=== PATIENT | male | born 1990 | race Caucasian/White ===

== ENCOUNTER 2016-09-18 13:34 | Inpatient (IN) | payer OTHER ==
[2016-09-18] MEDS ORDERED: INSULIN REGULAR HUMAN 100 UNITS/ML *VIAL IVPUSH ONE (13:47)
[2016-09-18] MEDS ORDERED: SODIUM CHLORIDE IV SCH ×6 (13:48→17:35)
[2016-09-18] MEDS ORDERED: NALOXONE HCL 0.4 MG/ML VIAL IVPUSH ONE (13:50)
--- NOTE | 2016-09-18 13:55 | PDOC ---
History of Present Illness <Fredrick Light - Last Filed: 09/18/16 15:38> - General History Source: Patient, Family Exam Limitations: Other - History of Present Illness Initial Comments: 09/18/16 14:02 The patient is a 25 year old male, with a significant past medical history of asthma, who presents to the emergency department accompanied by family members, altered mental status since earlier this morning. As per uncle, the patient recently returned from [place] yesterday morning, and stated he was not feeling well, but could not localize his symptoms. The uncle reports receiving a call at approximately 06:00 from the patients brother, requesting he go check up on the patient when he went to work. When the uncle arrived the patient was found in his bedroom unresponsive. The uncle reports the patient has a history of cocaine use. After arriving in the ED the patient regained consciousness, and admits to cocaine use, but does not specify at what time. The uncle reports the patient has a history of a liver condition, but does provide any specifics. The patient denies any ETOH or other recreational drug use. The patient denies inhaling any acetone. The patients history is limited due to current clinical condition. Allergies: None reported. Past Surgical History: None reported. Social History: Cocaine use. Non-smoker. Denies alcohol or other recreational drug use. <Amber Alexis - Last Filed: 09/18/16 18:43> - General Stated Complaint: UNRESPONSIVE Time Seen by Provider: 09/18/16 13:41 Past History <Fredrick Light - Last Filed: 09/18/16 15:38> <Amber Alexis - Last Filed: 09/18/16 18:43> - Past Medical History Allergies/Adverse Reactions: Allergies Allergy/AdvReac Type Severity Reaction Status Date / Time No Known Allergies Allergy Verified 09/18/16 14:17 Home Medications: Ambulatory Orders NK [No Known Home Medication] 09/18/16 Review of Systems - Review of Systems Able to Perform ROS?: Yes Comments:: 09/18/16 14:03 GENERAL/CONSTITUTIONAL: No fever or chills. No weakness. HEAD, EYES, EARS, NOSE AND THROAT: No change in vision. No ear pain or discharge. No sore throat. CARDIOVASCULAR: No chest pain or shortness of breath. RESPIRATORY: No cough, wheezing, or hemoptysis. GASTROINTESTINAL: No nausea, vomiting, diarrhea or constipation. GENITOURINARY: No dysuria, frequency, or change in urination. MUSCULOSKELETAL: No joint or muscle swelling or pain. No neck or back pain. SKIN: No rash NEUROLOGIC: Yes: +Altered mental status, +Unresponsive. No headache, vertigo, or change in strength/sensation. ENDOCRINE: No increased thirst. No abnormal weight change. HEMATOLOGIC/LYMPHATIC: No anemia, easy bleeding, or history of blood clots. ALLERGIC/IMMUNOLOGIC: No hives or skin allergy. <Amber Alexis - Last Filed: 09/18/16 18:43> *Physical Exam - Physical Exam Comments: 09/18/16 14:03 GENERAL: Difficult to arouse even with painful stimuli HEAD: No signs of trauma EYES: Pupils small but reactive, EOMI, sclera anicteric, conjunctiva clear ENT: Auricles normal inspection, hearing grossly normal, nares patent, oropharynx clear without exudates. Moist mucosa NECK: Normal ROM, supple, no lymphadenopathy, JVD, or masses LUNGS: Respiration is kuz-mal. No wheezes, and no crackles HEART: Regular rate and rhythm, normal S1 and S2, no murmurs, rubs or gallops ABDOMEN: Tender and slightly firm. Normoactive bowel sounds. No guarding, no rebound. No masses EXTREMITIES: Normal range of motion, no edema. No clubbing or cyanosis. No cords, erythema, or tenderness NEUROLOGICAL: Cranial nerves II through XII grossly intact. Normal speech, normal gait SKIN: Mottled and cool to the touch. Dry, normal turgor, no rashes or lesions noted. <Amber Alexis - Last Filed: 09/18/16 18:43> Heart Score/ECG Review - ECG Impressions Comment:: 09/18/16 14:08 Vent. Rate: 94 bpm IMPRESSION: Normal sinus rhythm. Prolonged QT. <Amber Alexis - Last Filed: 09/18/16 18:43> ED Treatment Course - LABORATORY CBC & Chemistry Diagram: 09/18/16 14:00 09/18/16 14:00 - RADIOLOGY Radiology Studies Ordered: Category Date Time Status CHEST X-RAY PORTABLE* [RAD] Stat Radiology 09/18/16 13:42 Ordered <Fredrick Light - Last Filed: 09/18/16 15:38> - LABORATORY CBC & Chemistry Diagram: 09/18/16 14:00 09/18/16 14:00 - RADIOLOGY Radiograph Interpretation: 09/18/16 17:19 EXAM: CXR INTERPRETED BY: Dr. Nassar REVIEWED BY: Dr. Light IMPRESSION: No evidence of active pulmonary disease EXAM: CXR INTERPRETED BY: Dr. Nassar REVIEWED BY: Dr. Light IMPRESSION: Post intubation, the tip above bifurcation of the trachea at the level of T3. No pneumothorax is seen. The lungs are well aerated without pulmonary infiltrates, or atelectasis. <Amber Alexis - Last Filed: 09/18/16 18:43> Medical Decision Making - Critical Care Time Total Critical Care Time (minutes): 45 Critical Care Statement: The care of this patient involved high complexity decision making to prevent further life threatening deterioration of the patient 's condition and/or to evalute & treat vital organ system(s) failure or risk of failure. - Medical Decision Making 09/18/16 14:04 The patient is initially difficult to arouse even with painful stimuli. After 2 mg of Narcan the patient is more arousable, but still breathing rapidly. Spoke to Dr. Moran in the ICU. Agreed to admit for DKA and septic shock. Patient will be intubated for hemodynamic and mental status management. Intubation: 1. Bicarbonate at 15:21. 2. Etomidate 15:22. 3. 120 Succinylcholine at 15:24. 4. 50 Rocuronium [place] at 15:27. 5. Propofol drip at 5. <Amber Alexis - Last Filed: 09/18/16 18:43> *DC/Admit/Observation/Transfer - Discharge Dispostion Admit: Yes - Attestations Physician Attestion: 09/18/16 13:52 I, Dr. Fredrick Light, attest that this document has been prepared under my direction and personally reviewed by me in its entirety. I further attest, that it accurately reflects all work, treatment, procedures and medical decision -making performed by me. <Fredrick Light - Last Filed: 09/18/16 15:38> - Attestations Scribe Attestion: 09/18/16 14:04 Documentation prepared by Amber Alexis, acting as rn medical surgical for Fredrick Light DO. <Amber Alexis - Last Filed: 09/18/16 18:43> Diagnosis at time of Disposition: Lactic acidosis, Acute renal insufficiency DKA (diabetic ketoacidosis) Qualifiers: Diabetes mellitus type: type 1 Diabetes mellitus complication detail: with coma Qualified Code(s): E10.11 - Type 1 diabetes mellitus with ketoacidosis with coma Altered mental status Qualifiers: Altered mental status type: stupor Qualified Code(s): R40.1 - Stupor - Discharge Dispostion Condition at time of disposition: Critical
[2016-09-18 14:20] LABS: BASOPHIL 0.3 % (0-2.0); EOSINOPHIL 0.2 % (0-4.5); MCH 30.4 pg (25.7-33.7); MCHC 30.1 g/dl (32.0-35.9); MEAN CELL VOLUME 100.9 fl (80-96); MEAN PLT VOLUME 11.5 fl (7.5-11.1); NEUTROPHILS 83.3 % (42.8-82.8); PLATELET COUNT 294 K/MM3 (134-434); RDW 15.5 % (11.9-15.9); WHITE BLOOD COUNT 17.9 K/mm3 (4.0-10.0)
[2016-09-18 14:33] LABS: INR 0.96 (0.82-1.09); PROTHROMBIN TIME (PATIENT) 10.6 SEC (9.98-11.88)
[2016-09-18 14:36] LABS: ACTIVATED PTT 31.7 SECONDS (26.9-34.4)
[2016-09-18 14:37] LABS: ALBUMIN 3.5 g/dl (3.4-5.0); CALCIUM 8.1 mg/dL (8.5-10.1); COCKROFT - GAULT 63.54; CREATININE 2.3 mg/dL (0.7-1.3); SGOT/AST 60 U/L (15-37); SGPT/ALT 115 U/L (12-78)
[2016-09-18 14:38] LABS: ANION GAP 30 (8-16); CO2 3 mmol/L (21-32)
[2016-09-18 14:42] LABS: URINE APPEARANCE CLEAR; URINE BILIRUBIN NEGATIVE (NEGATIVE); URINE BLOOD 1+ (NEGATIVE); URINE COLOR STRAW; URINE GLUCOSE (UA) 3+ (NEGATIVE); URINE KETONE 2+ (NEGATIVE); URINE LEUK ESTERASE NEGATIVE (NEGATIVE); URINE NITRITE NEGATIVE (NEGATIVE); URINE PROTEIN 2+ (NEGATIVE); URINE UROBILINOGEN NEGATIVE E.U./dl (0.2-1.0)
[2016-09-18 14:42] LABS: ALK PHOS 172 U/L (45-117); BILIRUBIN,TOTAL 0.5 mg/dL (0.2-1.0); TROPONIN I < 0.02 ng/ml (0.00-0.05)
[2016-09-18 14:46] LABS: GRANULAR CASTS 11 /lpf; URINE MUCUS RARE; URINE RBC <1 /hpf (0-3); URINE WBC 1 /hpf (3-5)
[2016-09-18 14:46] LABS: GLUCOSE,RANDOM 947 mg/dL (74-106)
[2016-09-18 14:49] LABS: ARTERIAL BLD GAS O2 SATURATION 97.2 % (90-98.9); ARTERIAL BLOOD GAS HCO3 1.4 meq/L (22-26)
[2016-09-18 14:51] LABS: ALLENS TEST POSITIVE; ART PUNCT SITE LEFT RADIAL; ARTERIAL BLOOD GAS BASE EXCESS -33.9 meq/l (-2-2); ARTERIAL BLOOD GAS pH 6.75 (7.35-7.45); LPM/O2% 21%; PT. ON O2? NO; TYPE OF O2 ROOM AIR
[2016-09-18 14:52] LABS: METHEMOGLOBIN 1.2 % (0.4-1.5)
[2016-09-18] MEDS ORDERED: SODIUM CHLORIDE IV STA (14:52)
[2016-09-18] MEDS ORDERED: ETOMIDATE 20 MG/10 ML AMPUL IVPUSH ONE (14:55)
[2016-09-18] MEDS ORDERED: SUCCINYLCHOLINE CHLORIDE 200 MG/10 ML VIAL IVPUSH ONE (14:55)
[2016-09-18] MEDS ORDERED: ROCURONIUM BROMIDE 50 MG/5 ML VIAL IVPUSH ONE (14:55)
[2016-09-18] MEDS ORDERED: PROPOFOL 100 ML ONE (15:01)
[2016-09-18] MEDS ORDERED: RAPID SEQUENCE INTUBATION KIT NR ONE (15:01)
[2016-09-18] MEDS ORDERED: SODIUM BICARBONATE 8.4% 50 MEQ/50 ML DISP.SYRIN IVPUSH ONE ×4 (15:11→20:30)
[2016-09-18] MEDS ORDERED: SODIUM BICARBONATE 8.4% - 50 ML ONE ×2 (15:13→17:20)
[2016-09-18] MEDS: PROPOFOL 100 ML IVPB SCH (15:35)
[2016-09-18] MEDS ORDERED: INSULIN REGULAR HUMAN 100 UNITS/ML *VIAL ONE ×2 (15:47→22:29)
[2016-09-18] MEDS ORDERED: SODIUM CHLORIDE 1,000 ML IV SCH (16:00)
[2016-09-18] MEDS ORDERED: SODIUM CHLORIDE 0.9%/KCL 1,000 ML IV SCH (16:30)
--- NOTE | 2016-09-18 16:44 | PN ---
Teaching Attending Note Name of Resident: Danny Shine ATTENDING PHYSICIAN STATEMENT I saw and evaluated the patient. I reviewed the resident's note and discussed the case with the resident. I agree with the resident's findings and plan as documented. Patient is a 25yo male ,presented unresponsive to ED. was intubated in ED. Hx taken from the family very limited. Patient was in [place] for 2 weeks and became sick in [place] and as per family he was hospitalized in [place] . Vital Signs Temperature 93.3 F L 09/18/16 14:28 Pulse Rate 88 09/18/16 15:38 Respiratory Rate 14 09/18/16 15:38 Blood Pressure 109/43 09/18/16 15:28 O2 Sat by Pulse Oximetry (%) 100 09/18/16 15:38 GENERAL: The patient intubated and sedated at this time. HEAD: NC, AT. EYES: PERRL, opens eyes ,sclera anicteric, conjunctiva clear. ENT: Ears normal, positive for NG tube . NECK: Trachea midline, full range of motion, supple. LUNGS: Intubated , sedated . HEART: Regular rate and rhythm, S1, S2 positive. ABDOMEN: Soft, nontender, nondistended, normoactive bowel sounds, no guarding, no rebound, no masses appreciated . EXTREMITIES: 2+ pulses, warm, well-perfused, no edema. NEUROLOGICAL: Cranial nerves II through XII grossly intact. PSYCH: Normal mood, normal affect. SKIN: Warm, dry, normal turgor. : pubic rash is noted CBCD WBC 17.9 K/mm3 (4.0-10.0) H 09/18/16 14:00 RBC 5.08 M/mm3 (4.00-5.60) 09/18/16 14:00 Hgb 15.4 GM/dL (11.7-16.9) 09/18/16 14:00 Hct 51.2 % (35.4-49) H 09/18/16 14:00 MCV 100.9 fl (80-96) H 09/18/16 14:00 MCHC 30.1 g/dl (32.0-35.9) L 09/18/16 14:00 RDW 15.5 % (11.9-15.9) 09/18/16 14:00 Plt Count 294 K/MM3 (134-434) 09/18/16 14:00 MPV 11.5 fl (7.5-11.1) H 09/18/16 14:00 CMP Sodium 134 mmol/L (136-145) L 09/18/16 14:00 Potassium 4.3 mmol/L (3.5-5.1) 09/18/16 14:00 Chloride 101 mmol/L (98-107) 09/18/16 14:00 Carbon Dioxide 3 mmol/L (21-32) L 09/18/16 14:00 Anion Gap 30 (8-16) H 09/18/16 14:00 BUN 22 mg/dL (7-18) H 09/18/16 14:00 Creatinine 2.3 mg/dL (0.7-1.3) H 09/18/16 14:00 Creat Clearance w eGFR 35.11 (>60) 09/18/16 14:00 Random Glucose 947 mg/dL (74-106) H* 09/18/16 14:00 Calcium 8.1 mg/dL (8.5-10.1) L 09/18/16 14:00 Total Bilirubin 0.5 mg/dL (0.2-1.0) 09/18/16 14:00 AST 60 U/L (15-37) H 09/18/16 14:00 ALT 115 U/L (12-78) H 09/18/16 14:00 Alkaline Phosphatase 172 U/L (45-117) H 09/18/16 14:00 Total Protein 7.0 g/dl (6.4-8.2) 09/18/16 14:00 Albumin 3.5 g/dl (3.4-5.0) 09/18/16 14:00 CARDIAC ENZYMES Creatine Kinase 59 IU/L (39-308) 09/18/16 14:00 Troponin I < 0.02 ng/ml (0.00-0.05) 09/18/16 14:00 Current Medications Generic Name Dose Route Start Last Admin Trade Name Freq PRN Reason Stop Dose Admin Chlorhexidine Gluconate 1 applic 09/18/16 22:00 Hibiclens For Decolonization - TP HS SILVER Enoxaparin Sodium 40 mg 09/19/16 10:00 Lovenox - SQ DAILY SILVER Insulin Human Regular 100 100 mls @ 9.07 mls/hr 09/18/16 15:30 units/ Sodium Chloride IVPB TITR SILVER Protocol Sodium Chloride 4,000 mls @ 1,000 mls/hr 09/18/16 14:52 09/18/16 15:38 Normal Saline - IV 09/18/16 18:51 1,000 mls/hr ASDIR STA Administration Propofol 100 mls @ 2.722 mls/hr 09/18/16 15:00 09/18/16 15:35 Diprivan - IVPB 2.722 mls/hr TITR SILVER Administration Protocol 5 MCG/KG/MIN Potassium Chloride/Sodium Chloride 1,000 mls @ 150 mls/hr 09/18/16 16:30 Ns+20 Meq Kcl - IV ASDIR SILVER Piperacillin Sod/Tazobactam Sod 50 mls @ 100 mls/hr 09/18/16 17:00 Zosyn 3.375gm Ivpb (Pre-Docked) IVPB 09/18/16 17:29 ONCE ONE Protocol Vancomycin HCl 250 mls @ 250 mls/hr 09/18/16 17:00 Vancomycin (Pre-Docked) IVPB 09/18/16 17:59 ONCE ONE Protocol Potassium Acetate 40 meq/ 1,020 mls @ 250 mls/hr 09/18/16 16:45 Sodium Chloride IV 09/19/16 20:50 ASDIR SILVER Mupirocin 1 applic 09/18/16 22:00 Bactroban Ointment (For Decolonization) - NS 09/23/16 21:59 BID SILVER ASSESSMENT AND PLAN: Patient is a 25M with PMHx of Asthma, cocaine use, etoh abuse , liver disease as per uncle, presents to the ED with family since he was found unresponsive this morning. As per family patient just returned from [place] 2 days ago as he was there for 2 weeks. As per family, patient was sick in [place] where he was hospitalized but unsure what was wrong with him. When he got back patient complained of vague abdominal and chest pain and his uncle was asked by other family members to check in on the patient as his brother was going to work and was found down and unresponsive and brought to the emergency room by EMS # Acute respiratory Failure intubated sedated going to ICU repeat abg in 3 hrs. ICU attending # Acute DKA with metabolic acidosis; IVF 0.9NS with potassium acetate 40meq at 25occ/hr, CMP every 4 hrs, alt.with accu check every 1 hr for the 1st 12 hrs. once Blood sugar drops to 250, change IVF to d51/2NS at 200cc/hr, once potassium drops to below 4.0 add potassium to IVF, cmp q2 hrs, insulin drip at 10u/hr, Decrease rate to 7 units/hr once blood sugar drops to < 500 , Decrease Insulin drip rate to 3 units/hr once blood sugar drops to <250 and Change IVF to D5NS at 150 cc/hr ,NaHCO3 drip until PH rises to 7.0adjust as per , adjust the dose according blood sugar as well , also mag, phos every 2 hrs , on consult # Acute hypothermia, leukocytosis r/o sepsis, blood culture, ua, urine culture is ordered , ID consult as per ID one dose of Vancomycin 1500mg, then Rocephin 2gm IV daily. ID on the case # Acute renal failure IVF repeat cmp every 2 hrs for 12 hrs then every 4 hrs ; on the case # Hx of EToh and cocaine r/o rhabdomyolisis CPK level stat DVT Px: Heparin Admit to ICU' CC time of 60 minutes.
[2016-09-18] MEDS ORDERED: POTASSIUM ACETATE IV SCH ×5 (16:45→17:35)
--- NOTE | 2016-09-18 16:51 | HP ---
Addendum entered and electronically signed by Danny Shine RES 09/18/16 17:34: family just informed me he was taking some medication from [place] for his liver and he also drinks 5-6 large cans of beer everyday Original Note: CHIEF COMPLAINT: Patient found down in DKA PCP:None HISTORY OF PRESENT ILLNESS: 25M PMHx of Asthma, some kind of liver disease per uncle, presents to the ED with family as he was found unresponsive this morning. As per family patient just returned from [place] 2 days ago as he was there for 2 weeks. When he got back he complained of vague abdominal and chest pain and his uncle was asked by other family members to check in on the patient as his brother was going to work. When his uncle when to c heck on him he was found down and unresponsive and brought to the emergency room by EMS. Patient was unresponsive in the ED and and given narcan and woke up briefly and admitted to cocaine use. The uncle reports the patient has a history of cocaine use some kind of liver consition and asthma. Patient has never been diagnosed with diabetes before per the family. The patient denied any ETOH or other recreational drug use to the ED physician. The patient denies inhaling any acetone to the ED physician. In the ED in metabolic acidosis and respiratory alkalosis. SEAN. He was intubated. he has leukocytosis and hypothermia. Allergies: None reported. Past Surgical History: None reported. Social History: Cocaine use. Non-smoker. Denies alcohol or other recreational drug use. ER course was notable for: (1)IVF Labs (2)Insulin gtt Bicarb intubation (3)CXR Recent Travel: PAST MEDICAL HISTORY: PAST SURGICAL HISTORY: Social History: Smoking:Denies Alcohol:Denies Drugs: Cocaine use Family History: Allergies No Known Allergies Allergy (Verified 09/18/16 14:17) HOME MEDICATIONS: REVIEW OF SYSTEMS Could not do ROS as patient was unresponsive and is now intubated and sedated. PHYSICAL EXAMINATION Vital Signs - 24 hr 09/18/16 09/18/16 09/18/16 13:34 13:52 14:28 Temperature 93.3 F L 93.3 F L Pulse Rate 91 H Pulse Rate [ 94 H Apical] Respiratory 18 36 H Rate Blood Pressure 115/54 Blood Pressure 124/52 [Left Arm] O2 Sat by Pulse 100 98 Oximetry (%) 04/09/18/16 09/18/16 14:37 14:47 15:20 Temperature Pulse Rate Pulse Rate [ 92 H 90 Apical] Respiratory 30 H 24 Rate Blood Pressure Blood Pressure 130/62 119/57 [Left Arm] O2 Sat by Pulse 98 100 88 L Oximetry (%) 09/18/16 09/18/16 15:28 15:38 Temperature Pulse Rate 88 Pulse Rate [ 87 Apical] Respiratory 18 14 Rate Blood Pressure Blood Pressure 109/43 [Left Arm] O2 Sat by Pulse 100 100 Oximetry (%) GENERAL: Intubated sedated. HEAD: Normal with no signs of trauma. EYES: Pupils equal, round and reactive to light, Sclera anicteric, Conjunctiva clear EARS, NOSE, THROAT:Dry mucous membranes. NECK: No JVD . LUNGS: Breath sounds equal, clear to auscultation bilaterally. Bronchial breath sounds. No wheezes, and no crackles. Intubated. HEART: tachycardic ABDOMEN: Soft, nontender, not distended, normoactive bowel sounds UPPER EXTREMITIES: warm, well-perfused. No peripheral edema. LOWER EXTREMITIES: warm, well-perfused. No peripheral edema. : arnold in place with bright red blood. Traumatic arnold insertion per ED Laboratory Results - last 24 hr 09/18/16 09/18/16 09/18/16 14:00 14:00 14:00 WBC 17.9 H RBC 5.08 Hgb 15.4 Hct 51.2 H MCV 100.9 H MCHC 30.1 L RDW 15.5 Plt Count 294 MPV 11.5 H Neutrophils % 83.3 H Lymphocytes % 7.5 L Monocytes % 8.7 Eosinophils % 0.2 Basophils % 0.3 INR 0.96 PTT (Actin FS) 31.7 Puncture Site ABG pH ABG pCO2 at Pt Temp ABG pO2 at Pt Temp ABG HCO3 ABG O2 Sat (Measured) ABG O2 Content ABG Base Excess Dennis Test Carboxyhemoglobin Methemoglobin O2 Delivery Device Oxygen Flow Rate PEEP Sodium 134 L Potassium 4.3 Chloride 101 Carbon Dioxide 3 L Anion Gap 30 H BUN 22 H Creatinine 2.3 H Creat Clearance w eGFR 35.11 Random Glucose 947 H* Lactic Acid Calcium 8.1 L Total Bilirubin 0.5 AST 60 H ALT 115 H Alkaline Phosphatase 172 H Creatine Kinase 59 Troponin I < 0.02 Total Protein 7.0 Albumin 3.5 Urine Color Urine Appearance Urine pH Ur Specific [place] Urine Protein Urine Glucose (UA) Urine Ketones Urine Blood Urine Nitrite Urine Bilirubin Urine Urobilinogen Ur Leukocyte Esterase Urine RBC Urine WBC Granular Casts Urine Mucus Blood Type Antibody Screen 09/18/16 09/18/16 09/18/16 14:00 14:00 14:20 WBC RBC Hgb Hct MCV MCHC RDW Plt Count MPV Neutrophils % Lymphocytes % Monocytes % Eosinophils % Basophils % INR PTT (Actin FS) Puncture Site ABG pH ABG pCO2 at Pt Temp ABG pO2 at Pt Temp ABG HCO3 ABG O2 Sat (Measured) ABG O2 Content ABG Base Excess Dennis Test Carboxyhemoglobin Methemoglobin O2 Delivery Device Oxygen Flow Rate PEEP Sodium Potassium Chloride Carbon Dioxide Anion Gap BUN Creatinine Creat Clearance w eGFR Random Glucose Lactic Acid 5.191 H* Calcium Total Bilirubin AST ALT Alkaline Phosphatase Creatine Kinase Troponin I Total Protein Albumin Urine Color Straw Urine Appearance Clear Urine pH 5.0 Ur Specific [place] 1.023 Urine Protein 2+ H Urine Glucose (UA) 3+ H Urine Ketones 2+ H Urine Blood 1+ H Urine Nitrite Negative Urine Bilirubin Negative Urine Urobilinogen Negative Ur Leukocyte Esterase Negative Urine RBC <1 Urine WBC 1 Granular Casts 11 Urine Mucus Rare Blood Type O POSITIVE Antibody Screen Negative 09/18/16 09/18/16 14:38 14:38 WBC RBC Hgb Hct MCV MCHC RDW Plt Count MPV Neutrophils % Lymphocytes % Monocytes % Eosinophils % Basophils % INR PTT (Actin FS) Puncture Site Left radial ABG pH 6.75 L* ABG pCO2 at Pt Temp 10.7 L* ABG pO2 at Pt Temp 154.0 H* ABG HCO3 1.4 L* ABG O2 Sat (Measured) 97.2 ABG O2 Content 16.5 ABG Base Excess -33.9 L* Dennis Test Positive Carboxyhemoglobin 1.1 Methemoglobin 1.2 O2 Delivery Device Room air Oxygen Flow Rate 21% PEEP 0.0 Sodium Potassium Chloride Carbon Dioxide Anion Gap BUN Creatinine Creat Clearance w eGFR Random Glucose Lactic Acid Calcium Total Bilirubin AST ALT Alkaline Phosphatase Creatine Kinase Troponin I Total Protein Albumin Urine Color Urine Appearance Urine pH Ur Specific [place] Urine Protein Urine Glucose (UA) Urine Ketones Urine Blood Urine Nitrite Urine Bilirubin Urine Urobilinogen Ur Leukocyte Esterase Urine RBC Urine WBC Granular Casts Urine Mucus Blood Type Antibody Screen ASSESSMENT/PLAN: 25M found down with no PMH of DM presents to the ED unresponsive in DKA and severe sepsis. Diabetic ketoacidosis: patient has likely been a diabetic for a long time and has been undiagnosed and this is his initial presentation of DKA from untreated type 1 DM patient intubated admit to ICU given 6 liters IVF so far give 2 more liters bolus give NS @ 200ml/hr with 40 MeQ of potassium and 1/2 NS with 150 MEq of Bicarb @ 50ml/hr Endocrinology consult-spoke to Dr. Weir who will see the patient in consultation Insulin gtt BMP q4h Anion gap 30 once Anion gap closes or patient becomes hypoglycemic change fluids to dextrose containing fluids with potassium and give levemir replete potassium PRN will need outpatient follow up with ophthalmology and podiatry send osmolality send serum acetone HbA1C Severe Sepsis: tachycardic hypothermic leukocytosis with acute kidney injury and lactic acidosis unlikely patient has a source of infection leukocytosis is likely reactive to DKA Send BCx UCx ID consult STAT Vanco/Zosyn trend lactic acid Acute respiratory failure: from DKA intubated patient was tachypneic and CO2 was 10.7 ventilatory support ICU admission trend ABG lactic acidosis: from dehydration and volume depletion from third spacing of fluids trend lactic acid aggressive IVF for hydration Metabolic acidosis: from diabetic ketoacidosis and lactic acidosis given bicarb in ED will need Bicarb gtt Acute renal failure/Acute kidney injury: from volume depletion and third spacing of fluids aggressive IVF for hydration Trend Cr avoid nephrotoxic drugs Transaminitis/questionable history of Liver disease: transaminitis likely from shock liver from hypoperfusion Aggressive IVF hydration and volume repletion will need more history from the patient when he is stable alert and awake send DIC work up Hematuria: from traumatic arnold insertion irrigate arnold PRN monitor CBC send DIC work up Hyponatremia: this is pseudohyponatremia from hyperglycemia corrected sodium is WNL Asthma: intubated at this time will address this if it is active once stable FEN: Boluses PRN/aggressive hydration and volume repletion. NS with 40meq of potassium and bicarb @ 200ml/hr 1/2 NS with 150Meq of bicarb @ 50ml/hr replete potassium while on insulin gtt keep K+>4.0 NPO PPx: Lovenox/SCDs Protonix No PT consult at this time CCT 60 minutes ICU care Guarded prognosis spoke to ICU team attending Dr. Moran and resident Dr. Conley who have accepted the patient Visit type - Emergency Visit Emergency Visit: Yes Care time: The patient presented to the Emergency Department on the above date and was hospitalized for further evaluation of their emergent condition. - New Patient This patient is new to me today: Yes Date on this admission: 09/18/16 - Critical Care Critical Care patient: Yes Total Critical Care Time (in minutes): 60 Critical Care Statement: The care of this patient involved high complexity decision making to prevent further life threatening deterioration of the patient 's condition and/or to evalute & treat vital organ system(s) failure or risk of failure.
[2016-09-18] MEDS ORDERED: VANCOMYCIN 1 GRAM (PRE-DOCKED) 250 ML IVPB ONE ×2 (17:00→17:20)
[2016-09-18] MEDS ORDERED: PIPERACILLIN/TAZOB 3.375 GM 50 ML IVPB ONE ×2 (17:00→17:20)
[2016-09-18] MEDS ORDERED: SODIUM CHLORIDE 0.45% 1,000 ML with SODIUM BICARBONATE 8.4% - 150 MEQ IV SCH (17:02)
[2016-09-18] MEDS ORDERED: CEFTRIAXONE 1 GM in DEXTROSE 5%-WATER - 50 ML IVPB ONE (17:10)
[2016-09-18 17:14] LABS: ARTERIAL BLD GAS O2 SATURATION 98.5 % (90-98.9)
[2016-09-18 17:17] LABS: ARTERIAL BLOOD GAS pH 6.75 (7.35-7.45)
[2016-09-18 17:18] LABS: ARTERIAL BLOOD GAS BASE EXCESS -32.2 meq/l (-2-2); ARTERIAL BLOOD GAS HCO3 4.2 meq/L (22-26)
[2016-09-18 17:19] LABS: ALLENS TEST POSITIVE; ART PUNCT SITE LEFT RADIAL
[2016-09-18 17:21] LABS: PT. ON O2? YES
[2016-09-18 17:22] LABS: LPM/O2% 50; MECH. VENT. YES; VENT RATE 14; VT/PRESS 500
[2016-09-18] MEDS ORDERED: VANCOMYCIN 1,500 MG in DEXTROSE 5%-WATER - 500 ML IVPB ONE (17:22)
[2016-09-18 17:24] LABS: METHEMOGLOBIN 1.3 % (0.4-1.5)
--- NOTE | 2016-09-18 17:32 | PN ---
Progress Note (short form) - Note Progress Note: ID consult dictated 25 year old man just returned Wednesday from 15 day trip to [place]- has not been feeling well, c/o body pains +cocaine use/Etoh use -no IVDU found unresponsive and brought to ED was taking medicine from [place] for "liver "problems found to be in DKA -no prior history of diabetes asked to see for leukocytosis DKA SEAN abnl LFTS leukocytosis- possible sepsis respiratory failure substance use skin lesions suprapubic area hematuria would continue ceftriaxone vancomycin one dose urine tox hep serology rpr hiv testing- when able to consent liver sonogram for abnl lfts r Problem List - Problems (1) DKA (diabetic ketoacidosis) Code(s): E13.10 - OTH DIABETES MELLITUS WITH KETOACIDOSIS WITHOUT COMA Qualifiers: Diabetes mellitus type: type 1 Diabetes mellitus complication detail: with coma Qualified Code(s): E10.11 - Type 1 diabetes mellitus with ketoacidosis with coma (2) Acute renal insufficiency Code(s): N28.9 - DISORDER OF KIDNEY AND URETER, UNSPECIFIED (3) Respiratory failure Code(s): J96.90 - RESPIRATORY FAILURE, UNSP, UNSP W HYPOXIA OR HYPERCAPNIA (4) Leukocytosis Code(s): D72.829 - ELEVATED WHITE BLOOD CELL COUNT, UNSPECIFIED
[2016-09-18] MEDS ORDERED: CEFTRIAXONE 100 ML IVPB ONE (17:37)
[2016-09-18] MEDS: cefTRIAXone 2 GM/100 ML BAG (PRE-DOCKED) IVPB ONE ×2 (17:46→17:52)
[2016-09-18] MEDS: INSULIN REGULAR 100 UNITS in SODIUM CHLORIDE 99 ML IVPB SCH (17:49)
[2016-09-18] MEDS ORDERED: LORAZEPAM CARPU-JECT 2 MG/ML DISP.SYRIN IVPUSH ONE (17:54)
[2016-09-18] MEDS ORDERED: morphine CARPU-JECT 4 MG/1 ML DISP.SYRIN IVPUSH ONE (17:54)
[2016-09-18] MEDS ORDERED: LORAZEPAM CARPU-JECT 2 MG/ML DISP.SYRIN ONE (17:55)
[2016-09-18] MEDS ORDERED: morphine CARPU-JECT 4 MG/1 ML DISP.SYRIN ONE (17:55)
--- NOTE | 2016-09-18 17:58 | CONSULT ---
Consult Consult Specialty:: Endocrinology Referred by:: Dr Salcedo Reason for Consultation:: HYperlglycemia, DKA - History of Present Illness Chief Complaint: AMS History of Present Illness: This is a 25 year old male, with a significant past medical history of asthma, who presents to the emergency department accompanied by family members, altered mental status since earlier this morning. As per uncle, the patient recently returned from [place] yesterday morning, and stated he was not feeling well, but could not localize his symptoms. Patient was found unresponsive in his bedroom by uncle today. The uncle reports the patient has a history of cocaine use. After arriving in the ED the patient regained consciousness, and admitted to cocaine use, but did not specify at what time. Pt has h/o liver problems. Pt intubated and sedated in ED. Found to be acidotic with blood sugar >900. Treated with IV hydration, IV Insulin, KCL, Bicarb. - History Source History Provided By: Family Member, Medical Record Limitations to Obtaining History: Unresponsive - Alcohol/Substance Use Hx Alcohol Use: No - Smoking History Smoking history: Unknown if ever smoked Have you smoked in the past 12 months: No Home Medications - Allergies Allergies/Adverse Reactions: Allergies Allergy/AdvReac Type Severity Reaction Status Date / Time No Known Allergies Allergy Verified 09/18/16 14:17 Review of Systems Unable to obtain ROS, reason: Unresponsive, intubated, Physical Exam Vital Signs: Vital Signs Temperature 93.3 F L 09/18/16 14:28 Pulse Rate 88 09/18/16 15:38 Respiratory Rate 14 09/18/16 15:38 Blood Pressure 109/43 09/18/16 15:28 O2 Sat by Pulse Oximetry (%) 100 09/18/16 15:38 Constitutional: Yes: Other (Intubated, sedated) Eyes: Yes: Conjunctiva Clear HENT: Yes: Atraumatic, Normocephalic Neck: Yes: Supple, Trachea Midline Cardiovascular: Yes: Regular Rate and Rhythm Respiratory: Yes: CTA Bilaterally, Mechanically Ventilated Gastrointestinal: Yes: Soft Extremities: Yes: WNL Edema: No Neurological: Yes: Unresponsive (Intubated and sedated) Assessment/Plan AP: DKA Sepsis Lactic Acidosis SEAN Increase Insulin drip to 10 units/hr Decrease rate to 7 units/hr once blood sugar drops to <500 Decrease Insulin drip rate to 3 units/hr once blood sugar drops to <250 and Change IVF to D5NS at 150 cc/hr NaHCO3 drip until PH rises to 7.0 Electrolyte replacement as necessary IV abx as per ID Transfer to ICU
[2016-09-18 18:31] LABS: URINE MARIJUANA THC NEGATIVE ng/ml (CUTOFF=50)
--- NOTE | 2016-09-18 19:30 | CONSULT ---
Consult Consult Specialty:: Nephrology Reason for Consultation:: SEAN and acidosis - History of Present Illness Chief Complaint: brought in by family with altered mental status History of Present Illness: Pt is a 25 year old male with pmhx of asthma, etoh abuse, and cocaine use who was brought in to the hospital by family members for altered mental status. As per family pt had not been feeling well for the last few days. He was last seen awake and verbal yesterday. His brother is at bedside and assisted with history. Pt drinks about 6 large 40oz bottles of alcohol daily. His friends are at bedside and say that he uses cocaine daily. He was found in his bedroom unresponsive. Pt was intubted in ER. He was found to be in renal failure and was found to be acidotic. I was called to evaluate him. He was also found to have a blood sugar of greater than 900. He has received about 7 liters of fluids already and is on an insulin drip. - History Source History Provided By: Medical Record - Past Medical History Pulmonary: Yes: Asthma - Alcohol/Substance Use Hx Alcohol Use: Yes (6 - 40 oz bottles daily) History of Substance Use: reports: Cocaine - Smoking History Smoking history: Unknown if ever smoked Have you smoked in the past 12 months: No Home Medications - Allergies Allergies/Adverse Reactions: Allergies Allergy/AdvReac Type Severity Reaction Status Date / Time No Known Allergies Allergy Verified 09/18/16 14:17 - Home Medications Home Medications: Ambulatory Orders NK [No Known Home Medication] 09/18/16 Family Disease History - Family Disease History Family History: Unable to Obtain Review of Systems Unable to obtain ROS, reason: pt intubated Physical Exam Vital Signs: Vital Signs Temperature 94.9 F L 09/18/16 19:16 Pulse Rate 88 09/18/16 19:16 Respiratory Rate 16 09/18/16 19:17 Blood Pressure 124/59 09/18/16 19:16 O2 Sat by Pulse Oximetry (%) 100 09/18/16 19:17 Constitutional: Yes: Mild Distress Eyes: Yes: Conjunctiva Clear Cardiovascular: Yes: S1, S2 Respiratory: Yes: Mechanically Ventilated Gastrointestinal: Yes: Soft, Abdomen, Obese Renal/: Yes: Kelly Present, Hematuria Musculoskeletal: Yes: Muscle Weakness Edema: No Neurological: Yes: Lethargy Labs: Laboratory Tests 09/18/16 09/18/16 09/18/16 14:00 14:00 14:20 ABG pH ABG pCO2 at Pt Temp ABG pO2 at Pt Temp ABG HCO3 ABG O2 Sat (Measured) ABG O2 Content ABG Base Excess Sodium 134 L Potassium 4.3 Chloride 101 Carbon Dioxide 3 L Anion Gap 30 H BUN 22 H Creatinine 2.3 H Creat Clearance w eGFR 35.11 Random Glucose 947 H* Lactic Acid 5.191 H* Calcium 8.1 L AST 60 H ALT 115 H Alkaline Phosphatase 172 H Urine Color Straw Urine Appearance Clear Urine pH 5.0 Ur Specific [place] 1.023 Urine Protein 2+ H Urine Glucose (UA) 3+ H Urine Ketones 2+ H Urine Blood 1+ H Cocaine Screen Alcohol, Quantitative 09/18/16 09/18/16 09/18/16 14:28 14:38 17:00 ABG pH 6.75 L* 6.75 L* ABG pCO2 at Pt Temp 10.7 L* 32.1 L D ABG pO2 at Pt Temp 154.0 H* 249.0 H* ABG HCO3 1.4 L* 4.2 L* ABG O2 Sat (Measured) 97.2 98.5 ABG O2 Content 16.5 19.3 ABG Base Excess -33.9 L* -32.2 L* Sodium Potassium Chloride Carbon Dioxide Anion Gap BUN Creatinine Creat Clearance w eGFR Random Glucose Lactic Acid Calcium AST ALT Alkaline Phosphatase Urine Color Urine Appearance Urine pH Ur Specific [place] Urine Protein Urine Glucose (UA) Urine Ketones Urine Blood Cocaine Screen Alcohol, Quantitative < 5.0 09/18/16 18:00 ABG pH ABG pCO2 at Pt Temp ABG pO2 at Pt Temp ABG HCO3 ABG O2 Sat (Measured) ABG O2 Content ABG Base Excess Sodium Potassium Chloride Carbon Dioxide Anion Gap BUN Creatinine Creat Clearance w eGFR Random Glucose Lactic Acid Calcium AST ALT Alkaline Phosphatase Urine Color Urine Appearance Urine pH Ur Specific [place] Urine Protein Urine Glucose (UA) Urine Ketones Urine Blood Cocaine Screen Negative Alcohol, Quantitative Imaging - Results Chest X-ray: Report Reviewed Problem List - Problems (1) Acute renal insufficiency Code(s): N28.9 - DISORDER OF KIDNEY AND URETER, UNSPECIFIED (2) Altered mental status Code(s): R41.82 - ALTERED MENTAL STATUS, UNSPECIFIED Qualifiers: Altered mental status type: stupor Qualified Code(s): R40.1 - Stupor (3) Lactic acidosis Code(s): E87.2 - ACIDOSIS (4) Leukocytosis Code(s): D72.829 - ELEVATED WHITE BLOOD CELL COUNT, UNSPECIFIED (5) Respiratory failure Code(s): J96.90 - RESPIRATORY FAILURE, UNSP, UNSP W HYPOXIA OR HYPERCAPNIA Assessment/Plan Current Medications Generic Name Dose Route Start Last Admin Trade Name Freq PRN Reason Stop Dose Admin Ceftriaxone Sodium 2 gm 09/19/16 10:00 Rocephin 2gm Ivpb (Pre-Docked) IVPB DAILY [facility] Protocol Chlorhexidine Gluconate 1 applic 09/18/16 22:00 Hibiclens For Decolonization - TP HS SILVER Enoxaparin Sodium 40 mg 09/19/16 10:00 Lovenox - SQ DAILY [facility] Insulin Human Regular 100 100 mls @ 7 mls/hr 09/18/16 15:30 09/18/16 17:49 units/ Sodium Chloride IVPB 7 mls/hr TITR SILVER Administration Protocol 7 UNITS/HR Propofol 100 mls @ 2.722 mls/hr 09/18/16 15:00 09/18/16 15:35 Diprivan - IVPB 2.722 mls/hr TITR SILVER Administration Protocol 5 MCG/KG/MIN Potassium Acetate 40 meq/ 1,020 mls @ 250 mls/hr 09/18/16 17:35 09/18/16 19:25 Sodium Chloride IV 09/19/16 01:31 250 mls/hr Q4H SILVER Administration Mupirocin 1 applic 09/18/16 22:00 Bactroban Ointment (For Decolonization) - NS 09/23/16 21:59 BID SILVER Impression 1. SEAN 2. metabolic acidosis 3. gross hematuria 4. DKA 5. sepsis 6. lactic acidosis 7. acute respiratory failure requiring intubation 8. etoh abuse - active 9. cocain use active Plan - agree with hydration, last set of labs was at 1400, repeat labs stat in order to asses fluids - cotn insulin drip - vent support - admit to ICU - send CPK level - will need renal ultrasound - check urine creatinine and sodium - repeat ABG - pulmonary/critical care evaluation - discussed case with family - discussed with ER team and medical attending - will need to monitor blood sugar - will need to monitor bmp - will follow closely - monitor urine output Dr Espinoza
[2016-09-18 19:31] LABS: COCKROFT - GAULT 85.97; CREATININE 1.7 mg/dL (0.7-1.3)
[2016-09-18 19:33] LABS: PHOSPHOROUS 3.3 mg/dL (2.5-4.9)
[2016-09-18 19:35] LABS: MAGNESIUM 2.5 mg/dL (1.8-2.4)
[2016-09-18 19:45] LABS: CALCIUM 6.3 mg/dL (8.5-10.1)
[2016-09-18] MEDS ORDERED: CALCIUM CHLORIDE 10% 1 GM/10 ML *VIAL IVPB ONE (19:47)
[2016-09-18 19:56] LABS: D-DIMER 1007 ng/ml (<200-235)
[2016-09-18 19:57] LABS: FIBRINOGEN < 100.0 mg/dL (238-498)
[2016-09-18 20:14] LABS: ARTERIAL BLD GAS O2 SATURATION 97.8 % (90-98.9); ARTERIAL BLOOD GAS BASE EXCESS -27.8 meq/l (-2-2); ARTERIAL BLOOD GAS HCO3 5.7 meq/L (22-26)
[2016-09-18 20:15] LABS: ART PUNCT SITE RIGHT BRACHIAL; LPM/O2% 40; MECH. VENT. YES; PT. ON O2? YES; TYPE OF O2 MECH. VENT.
[2016-09-18 20:16] LABS: VENT RATE 18; VT/PRESS 450
[2016-09-18 20:17] LABS: ARTERIAL BLOOD GAS pH 6.86 (7.35-7.45)
[2016-09-18] MEDS ORDERED: DEXTROSE IV ONE (20:22)
[2016-09-18] MEDS ORDERED: WATER IV ONE (20:22)
[2016-09-18] MEDS ORDERED: SODIUM BICARBONATE IV ONE (20:22)
[2016-09-18] MEDS ORDERED: NOREPINEPHRINE BITARTRATE 4 MG/4 ML ML IV ONE (20:26)
--- NOTE | 2016-09-18 20:28 | CONSULT ---
Consult Consult Specialty:: Pulm/CCM Reason for Consultation:: AMS, leukocytosis, DKA - History of Present Illness History of Present Illness: This is a 25 yo man Asthma, EtOH (5-6 beers per day), occasional cocaine use presented after being found down unresponsive for unknown period of time found to have profound DKA. Per the uncle and brother whom the patient lives with the patient recently returned home from [place] after 15 days where he was feeling ill for unknown reasons and was seen by a practitioner who prescribed a plant to take for liver dysfunction. After returning home he had polydipsia, polyuria, abdominal pain and nausea. On the morning of admission he was found unresponsive by his uncle and EMS was activated. On arrival to ED BG >900. ABG showed severe metabolic acidosis pH 6.8, lactate 5.5, +ketones, corrected Na: 155. Serum osmo 349. UTOX and BAL negative. CXR clear. U/A u/o evidence of infection. He was intubated for airway protection and acidosis. TLC placed. NS x7 liters given. Lactate normalized. Insulin drip was started. ID consulted and vanco/ceftriaxone was started. Patient arrived to ICU ABG: pH 6.8. RR increased from 18->35. BP 90/40. Norepi gtt started. Potassium 2.6. Potassium repleted 60mEqs. IV fluids changed to d5 NS +KCl 40mEq @ 200ml/hr. Sodium bicarb 150 mEq IVpush given. Sodium bicarb gtt started. Thiamin and folic acid given IV given h/o EtOH. LP done to r/o meningitis (bloody tap). - History Source History Provided By: Family Member, Medical Record Limitations to Obtaining History: Unresponsive - Past Medical History Pulmonary: Yes: Asthma - Alcohol/Substance Use Hx Alcohol Use: Yes (6 - 40 oz bottles daily) History of Substance Use: reports: Cocaine - Smoking History Smoking history: Unknown if ever smoked Have you smoked in the past 12 months: No Home Medications - Allergies Allergies/Adverse Reactions: Allergies Allergy/AdvReac Type Severity Reaction Status Date / Time No Known Allergies Allergy Verified 09/18/16 14:17 - Home Medications Home Medications: Ambulatory Orders NK [No Known Home Medication] 09/18/16 Family Disease History - Family Disease History Family History: Unable to Obtain Review of Systems Unable to obtain ROS, reason: intubated Physical Exam Vital Signs: Vital Signs Temperature 94.9 F L 09/18/16 19:16 Pulse Rate 88 09/18/16 19:16 Respiratory Rate 20 09/18/16 19:51 Blood Pressure 124/59 09/18/16 19:16 O2 Sat by Pulse Oximetry (%) 100 09/18/16 19:17 Current Medications Ceftriaxone Sodium (Rocephin 2gm Ivpb (Pre-Docked)) 2 gm IVPB DAILY [facility]ILVER PRN Reason: Protocol Chlorhexidine Gluconate (Hibiclens For Decolonization -) 1 applic TP HS SILVER Heparin Sodium (Porcine) (Heparin -) 5,000 unit SQ TID SILVER IV Flush (Triple Lumen Flush) 4 ml IVPUSH PRN PRN PRN Reason: Protocol Insulin Human Regular 100 (units/ Sodium Chloride) 100 mls @ 7 mls/hr IVPB TITR SILVER; 7 UNITS/HR PRN Reason: Protocol Last Titration: 09/18/16 21:53 Dose: 15 units/hr Propofol (Diprivan -) 100 mls @ 2.722 mls/hr IVPB TITR SILVER; 5 MCG/KG/MIN PRN Reason: Protocol Last Titration: 09/18/16 21:53 Dose: 18.37 mcg/kg/min Norepinephrine Bitartrate 4, (000 mcg/ Dextrose) 500 mls @ 37.5 mls/hr IV TITR SILVER; 5 MCG/MIN PRN Reason: Protocol Last Titration: 09/18/16 21:53 Dose: 7 mcg/min Dextrose/Sodium Chloride (D5-1/2ns+40 Meq Kcl -) 1,000 mls @ 200 mls/hr IV ASDIR [facility] Last Admin: 09/18/16 22:37 Dose: 200 mls/hr Influenza Virus Vaccine (Fluvirin) 45 mcg IM .ONCE ONE Stop: 09/18/16 22:41 Mupirocin (Bactroban Ointment (For Decolonization) -) 1 applic NS BID [facility] Stop: 09/23/16 21:59 Potassium Chloride (Potassium Chloride 20 Meq Premix Ivpb -) 20 meq IVPB Q60M [facility]IL[facility] Stop: 09/19/16 00:01 Thiamine HCl (Vitamin B1 Injection -) 200 mg IVPB DAILY [facility] Home medications/herbs Constitutional: Yes: Well Nourished Eyes: Yes: PERRL HENT: Yes: Normocephalic Neck: Yes: Trachea Midline Cardiovascular: Yes: Tachycardia, S1, S2 Respiratory: Yes: CTA Bilaterally, Intubated, Mechanically Ventilated Gastrointestinal: Yes: Normal Bowel Sounds, Soft, Abdomen, Obese Neurological: Yes: Unresponsive Labs: Laboratory Tests 09/18/16 09/18/16 09/18/16 14:00 14:00 18:00 Random Glucose 947 H* Lactic Acid 5.191 H* 0.694 CBCD WBC 17.9 K/mm3 (4.0-10.0) H 09/18/16 14:00 RBC 5.08 M/mm3 (4.00-5.60) 09/18/16 14:00 Hgb 15.4 GM/dL (11.7-16.9) 09/18/16 14:00 Hct 51.2 % (35.4-49) H 09/18/16 14:00 MCV 100.9 fl (80-96) H 09/18/16 14:00 MCHC 30.1 g/dl (32.0-35.9) L 09/18/16 14:00 RDW 15.5 % (11.9-15.9) 09/18/16 14:00 Plt Count 294 K/MM3 (134-434) 09/18/16 14:00 MPV 11.5 fl (7.5-11.1) H 09/18/16 14:00 CMP Sodium 146 mmol/L (136-145) H 09/18/16 20:25 Potassium 2.0 mmol/L (3.5-5.1) L* 09/18/16 20:25 Chloride 118 mmol/L (98-107) H 09/18/16 20:25 Carbon Dioxide 7 mmol/L (21-32) L D 09/18/16 20:25 Anion Gap 21 (8-16) H 09/18/16 20:25 BUN 25 mg/dL (7-18) H 09/18/16 20:25 Creatinine 1.9 mg/dL (0.7-1.3) H 09/18/16 20:25 Creat Clearance w eGFR 43.77 (>60) 09/18/16 20:25 Random Glucose 632 mg/dL (74-106) H* 09/18/16 20:25 Calcium 6.9 mg/dL (8.5-10.1) L* 09/18/16 20:25 Total Bilirubin 0.5 mg/dL (0.2-1.0) 09/18/16 20:25 AST 100 U/L (15-37) H D 09/18/16 20:25 ALT 100 U/L (12-78) H 09/18/16 20:25 Alkaline Phosphatase 122 U/L (45-117) H D 09/18/16 20:25 Total Protein 4.8 g/dl (6.4-8.2) L D 09/18/16 20:25 Albumin 2.3 g/dl (3.4-5.0) L D 09/18/16 20:25 CARDIAC ENZYMES Creatine Kinase 59 IU/L (39-308) 09/18/16 14:00 Troponin I < 0.02 ng/ml (0.00-0.05) 09/18/16 14:00 Urine Test Results Urine Color Straw 09/18/16 14:20 Urine Appearance Clear 09/18/16 14:20 Urine pH 5.0 (5.0-8.0) 09/18/16 14:20 Ur Specific [place] 1.023 (1.001-1.035) 09/18/16 14:20 Urine Protein 2+ (NEGATIVE) H 09/18/16 14:20 Urine Glucose (UA) 3+ (NEGATIVE) H 09/18/16 14:20 Urine Ketones 2+ (NEGATIVE) H 09/18/16 14:20 Urine Blood 1+ (NEGATIVE) H 09/18/16 14:20 Urine Nitrite Negative (NEGATIVE) 09/18/16 14:20 Urine Bilirubin Negative (NEGATIVE) 09/18/16 14:20 Ur Leukocyte Esterase Negative (NEGATIVE) 09/18/16 14:20 Urine RBC <1 /hpf (0-3) 09/18/16 14:20 Urine WBC 1 /hpf (3-5) 09/18/16 14:20 Urine Mucus Rare 09/18/16 14:20 ABG Results ABG pH 6.86 (7.35-7.45) L* 09/18/16 20:00 ABG pCO2 at Pt Temp 34.1 mmHg (35-45) L 09/18/16 20:00 ABG pO2 at Pt Temp 141.0 mmHg (80-100) H D 09/18/16 20:00 ABG HCO3 5.7 meq/L (22-26) L* 09/18/16 20:00 ABG O2 Sat (Measured) 97.8 % (90-98.9) 09/18/16 20:00 ABG O2 Content 16.7 % vol (15-22) 09/18/16 20:00 ABG Base Excess -27.8 meq/l (-2-2) L* 09/18/16 20:00 Imaging - Results Chest X-ray: Report Reviewed, Image Reviewed Problem List - Problems (1) Acute renal insufficiency Code(s): N28.9 - DISORDER OF KIDNEY AND URETER, UNSPECIFIED (2) Altered mental status Code(s): R41.82 - ALTERED MENTAL STATUS, UNSPECIFIED Qualifiers: Altered mental status type: stupor Qualified Code(s): R40.1 - Stupor (3) DKA (diabetic ketoacidosis) Code(s): E13.10 - OTH DIABETES MELLITUS WITH KETOACIDOSIS WITHOUT COMA Qualifiers: Diabetes mellitus type: type 1 Diabetes mellitus complication detail: with coma Qualified Code(s): E10.11 - Type 1 diabetes mellitus with ketoacidosis with coma (4) Lactic acidosis Code(s): E87.2 - ACIDOSIS (5) Leukocytosis Code(s): D72.829 - ELEVATED WHITE BLOOD CELL COUNT, UNSPECIFIED (6) Respiratory failure Code(s): J96.90 - RESPIRATORY FAILURE, UNSP, UNSP W HYPOXIA OR HYPERCAPNIA (7) Shock Code(s): R57.9 - SHOCK, UNSPECIFIED Assessment/Plan a/p: This is a 25 yo man with EtOH, Asthma, drug abuse (cocaine) found unresponsive in setting of severe DKA (pH 6.8, +ketones) c/b hypothermia, leukocytosis c/f infection: (?meningitis), shock likely 2/2 sepsis, dehydration , and severe acidosis leading to vascular collapse, ? toxic ingestion r/t unknown plant. -ABX per ID will increased dose of ceftriaxone for meningeal coverage until CSF cultures return -Renal following -renal dose medications -arnold cath placement -Endocrine consulted -f/u blood, urine and CSF cultures --Insulin drip 0.1units/kg/hr --if BG doesnt fall by 50-70 mg/dl in first hr double insulin infusion until BG drops by 50-70 mg/dl --goal B-200mg/dl until AG closes --if BG fall <70 mg/dl hold insulin x15m and bolus D50 IVP --restart insulin at half prior dose and notify prodiver -IV fluids 100-250ml/hr --corrected sodium >140 use d5 1/2NS --corrected sodium <140 use NS --add D5 once BG reaches 250 mg/dl --will given sodium bicarb until pH>7.0 -potassium replacement -BMP q2-4hrs until AG closes -mechanical ventilation, increase RR for severe acidosis -f/u with family about plant intake and call poison control -add on ASA and tylenol level -sedation with propofol for RASS -4 -daily interruption of sedation once improved -DVT/GI prophylaxis Boerem ACNP Pulm/CCM CCT: 120m
[2016-09-18] MEDS ORDERED: NOREPINEPHRINE BITARTRATE 4,000 MCG in DEXTROSE 5%-WATER - 496 ML IV SCH (20:30)
[2016-09-18] MEDS ORDERED: DEXTROSE 5%-WATER - 1,000 ML with SODIUM BICARBONATE 8.4% - 150 MEQ IV ONE ×2 (20:30)
[2016-09-18] MEDS ORDERED: TRIPLE LUMEN FLUSH 4 ML ML IVPUSH PRN (20:31)
[2016-09-18] MEDS ORDERED: SODIUM BICARBONATE 8.4% 50 MEQ/50 ML VIAL ONE ×2 (20:34→21:39)
[2016-09-18] MEDS ORDERED: THIAMINE HCL 200 MG/2 ML VIAL IVPB ONE (20:38)
[2016-09-18] MEDS ORDERED: CALCIUM CHLORIDE 1 GM/10 ML *DISP.SYRIN ONE (20:42)
[2016-09-18 21:05] LABS: ALBUMIN 2.3 g/dl (3.4-5.0); COCKROFT - GAULT 76.92; CREATININE 1.9 mg/dL (0.7-1.3)
[2016-09-18 21:08] LABS: BILIRUBIN,TOTAL 0.5 mg/dL (0.2-1.0); TOT PROT 4.8 g/dl (6.4-8.2)
[2016-09-18 21:33] LABS: CALCIUM 6.9 mg/dL (8.5-10.1)
--- NOTE | 2016-09-18 21:39 | PROC ---
Lumbar Puncture Indication: AMS, fever, leukocytosis Risks and Benefits Explained: Yes Consent on Chart: Yes Sterile Technique: Yes Skin prep: Chlorhexidine Position: Left lateral decubitus Site: L4-L51 Local Anesthesia: 1% Lidocaine with epi Opening Pressure(mmHg): 20 Closing Pressure(mmHg): 18 CSF Color, Appearance: Turbid, Red Sterile Dressing Applied: Yes Remarks: bloody tap, cleared from tube 1-4 OP: 20, CP: 18 Sent for cell count, gram stain and culture, fungal stain, cytopathology, VDRL
[2016-09-18] MEDS ORDERED: D5-1/2NS+40 MEQ KCL - 1,000 ML IV SCH (21:45)
[2016-09-18] MEDS: POTASSIUM CHLORIDE 20 MEQ PREMIX IVPB 100 ML IVPB SCH ×2 (21:51→22:40)
[2016-09-18] MEDS ORDERED: FOLIC ACID 5 MG/1 ML SQ ONE ×2 (22:16→22:30)
[2016-09-18] MEDS ORDERED: HEMOQUE TEST 1 EACH EACH ONE (22:22)
[2016-09-18 22:40] VITALS: BMI 28.6
[2016-09-18] MEDS ORDERED: PT OWN MED DRAWER 7, Y5N ONE (23:05)
--- NOTE | 2016-09-18 23:11 | CONS ---
DATE OF CONSULTATION: DATE OF DICTATION: 09/18/2016 INFECTIOUS DISEASE CONSULTATION REQUESTING PHYSICIAN: Hospitalist service CONSULTING PHYSICIAN: Ros Poon M.D. HISTORY OF PRESENT ILLNESS: This is a 25-year-old man who just returned from [place] 2 days ago. He was there for 15 days. Apparently he was not well while he was there. He was given some medicine to take for his liver. Upon return, he continued to feel unwell, complaining of myalgia, chest pain. He returned on Wednesday. This morning, he was found unresponsive in his bedroom by his uncle. The patient has a history of cocaine use. He is also a beer drinker. He drinks 5-6 of the large cans of beer daily. Upon arriving in the ER, he regained consciousness, admitted to cocaine use, and then he ultimately required intubation for impending respiratory failure. He was found in the emergency room to be in DKA with a sugar of 947 and a bicarbonate of 3. I am asked to see him for leukocytosis. He is currently receiving IV fluids and electrolyte repletion. After the Kelly was placed, he was noted to have gross hematuria. The family is present and really unable to give any other history regarding his care. They are unaware of him having diabetes in the past and states he does not take any medicines. There are no reported allergies. He has never had any surgery. SOCIAL HISTORY: He is a cocaine user, nonsmoker, beer drinker. The family denies any intravenous drug use. FAMILY HISTORY: Not available. He has no known drug allergies. Apparently he was taking some medicine for his liver, they do not know what. REVIEW OF SYSTEMS: Not available, besides the fact the family said he was complaining of diffuse myalgia. PHYSICAL EXAMINATION: General: He was intubated. Vital signs: Temperature 93.3, pulse 88, blood pressure 109/43, respiratory rate 14. He is saturating 100%. He is intubated with FiO2 of 15%. HEENT: Normocephalic. Eyes are anicteric. Neck: Supple. He has no meningismus. He is orally intubated. He has bilateral parotid enlargement. He has a few small follicular lesions on his chin. Lungs: Clear to auscultation. Heart: Regular rate and rhythm. Abdomen: Soft, nontender. Genitourinary: Kelly, he has some blood tinged urine. He has a few around his scrotum a few flat lesions. They are not ulcers, but they are flat about 1 cm diameter lesions. Extremities: Without edema. He has a few around his scrotum a few flat lesions. They are not ulcers, but they are flat about 1 cm diameter lesions. LABORATORY: Notable for white count of 17.9, hemoglobin of 15.4, platelets of 294, INR 0.96. His ABG: pH was 6.75 with a pCO2 of 10.2 and a pO2 of 154 on admission. His BUN and creatinine are 22 and 2.3 with a random glucose of 947, lactic acid was 5.1, AST 60, ALT 115 with alkaline phosphatase of 172, CPK is normal at 59, and bilirubin is normal at 0.5. Urinalysis has 2+ protein, 3+ glucose, 2+ ketones, 1+ blood, and his leukocyte esterase is negative. Chest x-ray done after intubation revealed no evidence of infiltrate. SUMMARY: This is a 25-year-old man in DKA, no prior history of diabetes, asked to see for leukocytosis. He is in DKA with acute kidney injury, abnormal LFTs, most likely on the basis of alcohol use, leukocytosis, possible sepsis as a trigger for his DKA, respiratory failure secondary to DKA, substance use, alcohol and cocaine. He has these skin lesions in the suprapubic area and has hematuria. I would continue ceftriaxone to give him broad spectrum coverage for possible sepsis, would give him vancomycin 1 dose as he has these skin lesions. Obtain a urine toxicology screen, hepatitis serology, and RPR. Liver sonogram for abnormal LFTs, and HIV testing when able to consent. Would continue management of his DKA as per the ICU team. Further recommendations to follow. Rodo [id number]
[2016-09-18 23:40] LABS: SALICYLATE < 4.0 mg/dl (0.0-30.0)
[2016-09-18 23:41] LABS: ARTERIAL BLD GAS O2 SATURATION 98.9 % (90-98.9); ARTERIAL BLOOD GAS BASE EXCESS -14.8 meq/l (-2-2); ARTERIAL BLOOD GAS pH 7.25 (7.35-7.45)
[2016-09-18 23:44] LABS: ART PUNCT SITE RIGHT BRACHIAL; LPM/O2% 40; PT. ON O2? YES
[2016-09-18 23:45] LABS: MECH. VENT. YES; TYPE OF O2 MECH. VENT; VENT RATE 35; VT/PRESS 450
[2016-09-19 00:01] LABS: CSF APPEARANCE CLOUDY; CSF COLOR BLOODY
[2016-09-19 00:02] LABS: CSF APPEARANCE CLOUDY; CSF COLOR BLOODY; CSF RBC 70000 /mm3
[2016-09-19 00:03] LABS: CSF RBC 30000 /mm3
[2016-09-19 00:27] LABS: CSF NEUTROPHILS 81 %
[2016-09-19] MEDS: INSULIN REGULAR 100 UNITS in SODIUM CHLORIDE 99 ML IVPB SCH ×3 (00:30→16:07)
[2016-09-19 00:35] LABS: CSF NEUTROPHILS 90 %
[2016-09-19] MEDS: POTASSIUM CHLORIDE 20 MEQ PREMIX IVPB 100 ML IVPB SCH ×5 (00:41→03:27)
[2016-09-19 00:46] LABS: BILIRUBIN,DIRECT 0.3 mg/dL (0.0-0.2); COCKROFT - GAULT 88.6; CREATININE 1.6 mg/dL (0.7-1.3)
[2016-09-19 00:47] LABS: BILIRUBIN,TOTAL 0.8 mg/dL (0.2-1.0)
[2016-09-19 00:50] LABS: CALCIUM 6.9 mg/dL (8.5-10.1)
[2016-09-19 00:58] LABS: MAGNESIUM 1.9 mg/dL (1.8-2.4)
[2016-09-19 00:59] LABS: TROPONIN I 0.04 ng/ml (0.00-0.05)
[2016-09-19] MEDS ORDERED: POTASSIUM CHLORIDE ORAL LIQUID 20 MEQ/15 ML PO ONE (01:00)
[2016-09-19] MEDS ORDERED: POTASSIUM PHOSPHATE 30 MM in DEXTROSE 5%-WATER - 250 ML IVPB ONE ×2 (01:11→06:28)
[2016-09-19] MEDS ORDERED: SODIUM CHLORIDE 0.45% 1,000 ML with POTASSIUM CHLORIDE 40 MEQ IVPB SCH (01:30)
[2016-09-19] MEDS: MUPIROCIN 2% TOPICAL OINTMENT FOR DECOLONIZATION NS SCH ×3 (01:33→22:14)
[2016-09-19] MEDS: CHLORHEXIDINE GLUCONATE 4% CLEANSER FOR DECOLONIZATION TP SCH ×2 (01:34→22:15)
[2016-09-19] MEDS: THIAMINE HCL 200 MG/2 ML VIAL IVPB ONE ×2 (01:35→03:16)
[2016-09-19] MEDS: FENTANYL INJECTION 500 MCG in DEXTROSE 5%-WATER - 90 ML IVPB SCH ×2 (01:38→10:37)
[2016-09-19] MEDS ORDERED: POTASSIUM CHLORIDE TABS 20 MEQ TABLET.ER (FP) PO ONE (02:00)
[2016-09-19] MEDS: SODIUM CHLORIDE 0.45% 1,000 ML with POTASSIUM CHLORIDE 40 MEQ IV SCH ×3 (02:01→11:50)
[2016-09-19] MEDS: PROPOFOL 100 ML IVPB SCH ×2 (02:09→15:03)
[2016-09-19 02:39] LABS: ALBUMIN 2.1 g/dl (3.4-5.0); BILIRUBIN,TOTAL 0.6 mg/dL (0.2-1.0); CALCIUM 7.8 mg/dL (8.5-10.1); COCKROFT - GAULT 78.76; CREATININE 1.8 mg/dL (0.7-1.3); TOT PROT 4.2 g/dl (6.4-8.2)
[2016-09-19 04:15] LABS: MCH 31.3 pg (25.7-33.7); MCHC 34.9 g/dl (32.0-35.9); MEAN CELL VOLUME 89.6 fl (80-96); PLATELET COUNT 164 K/MM3 (134-434); RDW 13.8 % (11.9-15.9); WHITE BLOOD COUNT 10.7 K/mm3 (4.0-10.0)
[2016-09-19 05:34] LABS: URINE CREATININE 25.8 mg/dL
[2016-09-19 06:18] LABS: CALCIUM 7.6 mg/dL (8.5-10.1); COCKROFT - GAULT 74.78; CREATININE 1.9 mg/dL (0.7-1.3)
[2016-09-19] MEDS: HEPARIN NA (PORCINE) 5,000 UNITS/ML 1ML VIAL SQ SCH ×3 (06:20→22:15)
[2016-09-19 06:22] LABS: ALBUMIN 2.1 g/dl (3.4-5.0); BILIRUBIN,DIRECT 0.2 mg/dL (0.0-0.2); BILIRUBIN,TOTAL 0.5 mg/dL (0.2-1.0); TOT PROT 4.3 g/dl (6.4-8.2)
[2016-09-19 06:24] LABS: PHOSPHOROUS 0.6 mg/dL (2.5-4.9)
[2016-09-19 06:52] LABS: ALBUMIN 2.1 g/dl (3.4-5.0); CALCIUM 7.8 mg/dL (8.5-10.1); COCKROFT - GAULT 64.58; CREATININE 2.2 mg/dL (0.7-1.3); MAGNESIUM 2.1 mg/dL (1.8-2.4)
[2016-09-19 06:59] LABS: BILIRUBIN,TOTAL 0.5 mg/dL (0.2-1.0); TOT PROT 4.4 g/dl (6.4-8.2)
[2016-09-19 07:16] LABS: PHOSPHOROUS 0.2 mg/dL (2.5-4.9)
[2016-09-19 07:37] LABS: ARTERIAL BLD GAS O2 SATURATION 99.4 % (90-98.9); ARTERIAL BLOOD GAS BASE EXCESS -13.2 meq/l (-2-2); ARTERIAL BLOOD GAS HCO3 11.5 meq/L (22-26)
[2016-09-19 07:45] LABS: ALLENS TEST POSITIVE; ART PUNCT SITE RIGHT RADIAL; ARTERIAL BLOOD GAS pH 7.31 (7.35-7.45); LPM/O2% 40%; MECH. VENT. YES; PT. ON O2? YES; TYPE OF O2 VENTILATOR; VENT RATE 35; VT/PRESS 450
[2016-09-19 08:35] LABS: BASOPHIL 0.3 % (0-2.0); MCH 31.2 pg (25.7-33.7); MEAN CELL VOLUME 89.1 fl (80-96); MEAN PLT VOLUME 11.6 fl (7.5-11.1); NEUTROPHILS 84.9 % (42.8-82.8); PLATELET COUNT 146 K/MM3 (134-434); RDW 13.8 % (11.9-15.9); WHITE BLOOD COUNT 10.7 K/mm3 (4.0-10.0)
--- NOTE | 2016-09-19 08:45 | PN ---
Progress Note, Physician Chief Complaint: ID Intubated Sedated No pressors normotensive Tmax 100.7 Hypothermic initially - Current Medication List Current Medications: Active Medications Ceftriaxone Sodium (Rocephin 2gm Ivpb (Pre-Docked)) 2 gm IVPB DAILY SILVER PRN Reason: Protocol Chlorhexidine Gluconate (Hibiclens For Decolonization -) 1 applic TP HS SILVER Last Admin: 09/19/16 01:34 Dose: 1 applic Heparin Sodium (Porcine) (Heparin -) 5,000 unit SQ TID SILVER IV Flush (Triple Lumen Flush) 4 ml IVPUSH PRN PRN PRN Reason: Protocol Insulin Human Regular 100 (units/ Sodium Chloride) 100 mls @ 7 mls/hr IVPB TITR SILVER; 7 UNITS/HR PRN Reason: Protocol Last Admin: 09/19/16 03:26 Dose: 10 mls/hr Propofol (Diprivan -) 100 mls @ 2.722 mls/hr IVPB TITR SILVER; 5 MCG/KG/MIN PRN Reason: Protocol Last Admin: 09/19/16 02:09 Dose: 21 mls/hr Norepinephrine Bitartrate 4, (000 mcg/ Dextrose) 500 mls @ 37.5 mls/hr IV TITR SILVER; 5 MCG/MIN PRN Reason: Protocol Last Titration: 09/18/16 21:53 Dose: 7 mcg/min Famotidine/Sodium Chloride (Pepcid 20 Mg Premixed Ivpb -) 50 mls @ 100 mls/hr IVPB BID SILVER Fentanyl 500 mcg/ Dextrose 100 mls @ 10 mls/hr IVPB TITR SILVER PRN Reason: 50 MCG/HR Last Admin: 09/19/16 01:38 Dose: 10 mls/hr Potassium Chloride 40 meq/ (Sodium Chloride) 1,020 mls @ 200 mls/hr IV Q5H SILVER Last Admin: 09/19/16 07:33 Dose: Not Given Potassium Phosphate 30 mm/ (Dextrose) 260 mls @ 62.5 mls/hr IVPB ONCE ONE Stop: 09/19/16 10:37 Last Admin: 09/19/16 07:28 Dose: 62.5 mls/hr Influenza Virus Vaccine (Fluvirin) 45 mcg IM .ONCE ONE Stop: 09/19/16 10:01 Mupirocin (Bactroban Ointment (For Decolonization) -) 1 applic NS BID SILVER Stop: 09/23/16 21:59 Last Admin: 09/19/16 01:33 Dose: 1 applic Thiamine HCl (Vitamin B1 Injection -) 200 mg IVPB DAILY [facility] - Objective Vital Signs: Vital Signs Temperature 1003 F H 09/19/16 06:00 Pulse Rate 126 H 09/19/16 06:00 Respiratory Rate 35 H 09/19/16 07:46 Blood Pressure 109/55 09/19/16 06:00 O2 Sat by Pulse Oximetry (%) 100 09/18/16 22:14 HENT: Yes: Other (Et tube) Cardiovascular: Yes: Tachycardia, S1, S2 Respiratory: Yes: WNL, Regular, CTA Bilaterally Gastrointestinal: Yes: WNL, Normal Bowel Sounds, Soft. No: Tenderness, Tenderness, Rebound Edema: No Labs: INR, PTT INR 0.96 (0.82-1.09) 09/18/16 14:00 Fibrinogen < 100.0 mg/dL (238-498) L* 09/18/16 18:00 Assessment/Plan Selected Entries 09/19/16 06:00 Temperature 1003 F H Laboratory Tests 09/18/16 09/18/16 09/18/16 14:00 22:00 22:00 WBC 17.9 H Hgb Hct Plt Count ABG pH ABG pCO2 at Pt Temp ABG pO2 at Pt Temp Oxygen Flow Rate POC Glucometer AST ALT Alkaline Phosphatase CSF Appearance Cloudy CSF Color Bloody CSF WBC 68 CSF RBC 65382 CSF Neutrophils 90 CSF Lymphocytes 10 CSF Glucose 554 H CSF Total Protein 09/18/16 09/19/16 09/19/16 22:00 04:00 05:07 WBC 10.7 H D Hgb Hct Plt Count 164 D ABG pH ABG pCO2 at Pt Temp ABG pO2 at Pt Temp Oxygen Flow Rate POC Glucometer > 400 AST ALT Alkaline Phosphatase CSF Appearance CSF Color CSF WBC CSF RBC CSF Neutrophils CSF Lymphocytes CSF Glucose CSF Total Protein 136 H 09/19/16 09/19/16 09/19/16 06:05 06:05 07:23 WBC Pending Hgb Pending Hct Pending Plt Count Pending ABG pH 7.31 L ABG pCO2 at Pt Temp 23.7 L ABG pO2 at Pt Temp 148.0 H D Oxygen Flow Rate 40% POC Glucometer AST 60 H ALT 87 H Alkaline Phosphatase 113 CSF Appearance CSF Color CSF WBC CSF RBC CSF Neutrophils CSF Lymphocytes CSF Glucose CSF Total Protein Assessment Sepsis considered DKA Respiratory failure Ingestion of multiple supplements SEAN Plan LP reviewed looks traumatic infection unlikely NO nuchal rigidity Would do head CT to rule out traumatic injury bleed Vanco level this am Blood cultures no growth Continue Ceftriaxone 2 grs daily HIV test
[2016-09-19 09:02] LABS: CALCIUM 7.8 mg/dL (8.5-10.1); COCKROFT - GAULT 67.66; CREATININE 2.1 mg/dL (0.7-1.3)
[2016-09-19] MEDS: FAMOTIDINE 20 MG/50 ML IVPB 50 ML IVPB SCH ×2 (09:14→22:14)
[2016-09-19] MEDS: THIAMINE HCL 200 MG/2 ML VIAL IVPB SCH (09:14)
[2016-09-19] MEDS ORDERED: ENOXAPARIN NA (PORCINE) 40 MG/0.4 ML DISP.SYRIN SQ SCH (10:00)
[2016-09-19] MEDS ORDERED: INFLUENZA VACCINE 45 MCG/0.5 ML (MDV 16-17) IM ONE (10:00)
[2016-09-19] MEDS ORDERED: cefTRIAXone 2 GM/100 ML BAG (PRE-DOCKED) IVPB SCH (10:00)
[2016-09-19] MEDS ORDERED: CEFTRIAXONE 100 ML IVPB SCH (10:00)
[2016-09-19] MEDS: MIDAZOLAM 100 MG in SODIUM CHLORIDE 100 ML IVPB SCH (10:22)
--- NOTE | 2016-09-19 10:34 | PN ---
Physical Exam: SUBJECTIVE: Patient seen and examined Patient continues to be on pressors. Sedated, intubated in ICU. OBJECTIVE: Vital Signs Temperature 100.3 F H 09/19/16 06:00 Pulse Rate 126 H 09/19/16 06:00 Respiratory Rate 35 H 09/19/16 09:57 Blood Pressure 109/55 09/19/16 06:00 O2 Sat by Pulse Oximetry (%) 100 09/18/16 22:14 GENERAL: intubated , unresponsive on sedation. HEAD: Normal with no signs of trauma. EYES: sclera anicteric, conjunctiva clear. ENT: positive for NG-tube and ET-tube NECK: Trachea midline. LUNGS: on the vent. HEART: sinus tachycardia , S1, S2 positive. ABDOMEN: Soft, , nondistended, normoactive bowel sounds,no masses appreciated. EXTREMITIES: 2+ pulses, warm, well-perfused, no edema. NEUROLOGICAL: intubated, sedated , gait not observed. SKIN: Warm, dry, : pubic rash is noted CBCD WBC 10.7 K/mm3 (4.0-10.0) H 09/19/16 06:05 RBC 3.60 M/mm3 (4.00-5.60) L 09/19/16 06:05 Hgb 11.2 GM/dL (11.7-16.9) L 09/19/16 06:05 Hct 32.1 % (35.4-49) L 09/19/16 06:05 MCV 89.1 fl (80-96) 09/19/16 06:05 MCHC 35.0 g/dl (32.0-35.9) 09/19/16 06:05 RDW 13.8 % (11.9-15.9) 09/19/16 06:05 Plt Count 146 K/MM3 (134-434) 09/19/16 06:05 MPV 11.6 fl (7.5-11.1) H 09/19/16 06:05 CMP Sodium 151 mmol/L (136-145) H 09/19/16 06:05 Potassium 2.4 mmol/L (3.5-5.1) L* 09/19/16 06:05 Chloride 121 mmol/L (98-107) H 09/19/16 06:05 Carbon Dioxide 11 mmol/L (21-32) L 09/19/16 06:05 Anion Gap 19 (8-16) H 09/19/16 06:05 BUN 26 mg/dL (7-18) H 09/19/16 06:05 Creatinine 2.1 mg/dL (0.7-1.3) H 09/19/16 06:05 Creat Clearance w eGFR 36.96 (>60) 09/19/16 06:05 Random Glucose 484 mg/dL (74-106) H* 09/19/16 08:15 Calcium 7.8 mg/dL (8.5-10.1) L 09/19/16 06:05 Total Bilirubin 0.5 mg/dL (0.2-1.0) 09/19/16 06:05 AST 60 U/L (15-37) H 09/19/16 06:05 ALT 87 U/L (12-78) H 09/19/16 06:05 Alkaline Phosphatase 113 U/L (45-117) 09/19/16 06:05 Total Protein 4.4 g/dl (6.4-8.2) L 09/19/16 06:05 Albumin 2.1 g/dl (3.4-5.0) L 09/19/16 06:05 CARDIAC ENZYMES Creatine Kinase 72 IU/L (39-308) 09/18/16 23:30 Troponin I 0.04 ng/ml (0.00-0.05) D 09/18/16 23:30 Active Medications Generic Name Dose Route Start Last Admin Trade Name Freq PRN Reason Stop Dose Admin Chlorhexidine Gluconate 1 applic 09/18/16 22:00 09/19/16 01:34 Hibiclens For Decolonization - TP 1 applic HS SILVER Administration Heparin Sodium (Porcine) 5,000 unit 09/19/16 06:00 Heparin - SQ TID SILVER IV Flush 4 ml 09/18/16 20:31 Triple Lumen Flush IVPUSH PRN PRN Protocol Insulin Human Regular 100 100 mls @ 7 mls/hr 09/18/16 15:30 09/19/16 03:26 units/ Sodium Chloride IVPB 10 mls/hr TITR SILVER Administration Protocol 7 UNITS/HR Propofol 100 mls @ 2.722 mls/hr 09/18/16 15:00 09/19/16 02:09 Diprivan - IVPB 21 mls/hr TITR SILVER Administration Protocol 5 MCG/KG/MIN Norepinephrine Bitartrate 4, 500 mls @ 37.5 mls/hr 09/18/16 20:30 09/18/16 21: 53 000 mcg/ Dextrose IV 7 mcg/min TITR SILVER Titration Protocol 5 MCG/MIN Famotidine/Sodium Chloride 50 mls @ 100 mls/hr 09/19/16 10:00 09/19/16 09:14 Pepcid 20 Mg Premixed Ivpb - IVPB 100 mls/hr BID SILVER Administration Fentanyl 500 mcg/ Dextrose 100 mls @ 10 mls/hr 09/19/16 01:30 09/19/16 01:38 IVPB 10 mls/hr TITR SILVER Administration 50 MCG/HR Potassium Chloride 40 meq/ 1,020 mls @ 200 mls/hr 09/19/16 01:30 09/19/16 07:33 Sodium Chloride IV Not Given Q5H SILVER Potassium Phosphate 30 mm/ 260 mls @ 62.5 mls/hr 09/19/16 06:28 09/19/16 07:28 Dextrose IVPB 09/19/16 10:37 62.5 mls/hr ONCE ONE Administration Ceftriaxone Sodium 100 mls @ 200 mls/hr 09/19/16 10:00 Rocephin 2gm Ivpb (Pre-Docked) IVPB DAILY SILVER Midazolam HCl 100 mg/ Sodium 100 mls @ 1 mls/hr 09/19/16 09:30 Chloride IVPB TITR SILVER Protocol 1 MG/HR Mupirocin 1 applic 09/18/16 22:00 09/19/16 01:33 Bactroban Ointment (For Decolonization) - NS 09/23/16 21:59 1 applic BID SILVER Administration Thiamine HCl 200 mg 09/19/16 10:00 09/19/16 09:14 Vitamin B1 Injection - IVPB 200 mg DAILY SILVER Administration ASSESSMENT/PLAN: Patient is a 25M with PMHx of Asthma, cocaine use, etoh abuse , liver disease as per uncle, presents to the ED with family since he was found unresponsive this morning. As per family patient just returned from [place] 2 days ago as he was there for 2 weeks. As per family, patient was sick in [place] where he was hospitalized but unsure what was wrong with him. When he got back patient complained of vague abdominal and chest pain and his uncle was asked by other family members to check in on the patient as his brother was going to work and was found down and unresponsive and brought to the emergency room by EMS # Acute respiratory Failure intubated sedated in ICU continue sedation Propofol and Midazolam IV # Septic shock (Acute hypothermia, leukocytosis) on IVF, IV antibiotic Rocephin s/p LP looks like traumatic infection. blood culture, ua, urine culture is ordered , s/p one dose of Vancomycin 1500mg, and on Rocephin 2gm IV daily. ID on the case # Acute DKA ; on the case once blood sugar drops to 250, change IVF to d51/2NS at 200cc/hr, once potassium drops to below 4.0 add potassium to IVF, cmp q2 hrs, insulin drip at 10u/hr, Decrease rate to 7 units/hr once blood sugar drops to <500 , Decrease Insulin drip rate to 3 units/hr once blood sugar drops to <250 and Change IVF to D5NS at 150 cc/hr ,NaHCO3 drip until PH rises to 7.0 adjust as per , adjust the dose according blood sugar as well , also mag, phos every 2 hrs ,and replet as needed # Acute renal failure IVF repeat cmp every 2 hrs for 12 hrs then every 4 hrs ; on the case # Hx of EToh and cocaine , with normal CPK . On folic acid/thiamine # Ingestion of multiple Herbal supplements ( unknown amounts and unknown reason ) HIV test ordered as per iD DVT Px: Heparin sq Visit type - Emergency Visit Emergency Visit: Yes ED Registration Date: 09/18/16 Care time: The patient presented to the Emergency Department on the above date and was hospitalized for further evaluation of their emergent condition. - New Patient This patient is new to me today: No - Critical Care Critical Care patient: Yes Total Critical Care Time (in minutes): 35 Critical Care Statement: The care of this patient involved high complexity decision making to prevent further life threatening deterioration of the patient 's condition and/or to evalute & treat vital organ system(s) failure or risk of failure.
[2016-09-19] MEDS ORDERED: ACETAMINOPHEN 1000 MG/100 ML VIAL (NON FORMULARY) IVPB PRN (10:40)
[2016-09-19 10:43] LABS: INR 1.04 (0.82-1.09); PROTHROMBIN TIME (PATIENT) 11.5 SEC (9.98-11.88)
[2016-09-19 10:45] LABS: ACTIVATED PTT 29.2 SECONDS (26.9-34.4)
[2016-09-19] MEDS ORDERED: NOREPINEPHRINE BITARTRATE 4 MG/4 ML ML IV ONE (10:58)
[2016-09-19 11:01] LABS: ALBUMIN 2.1 g/dl (3.4-5.0); BILIRUBIN,TOTAL 0.4 mg/dL (0.2-1.0); CALCIUM 8.1 mg/dL (8.5-10.1); COCKROFT - GAULT 64.58; CREATININE 2.2 mg/dL (0.7-1.3); MAGNESIUM 2.1 mg/dL (1.8-2.4); TOT PROT 4.4 g/dl (6.4-8.2)
[2016-09-19 11:04] LABS: COCKROFT - GAULT 74.78; CREATININE 1.9 mg/dL (0.7-1.3)
[2016-09-19 11:32] LABS: PHOSPHOROUS 0.5 mg/dL (2.5-4.9)
[2016-09-19] MEDS ORDERED: POTASSIUM PHOSPHATE 30 MM in SODIUM CHLORIDE 250 ML IVPB ONE ×3 (11:35→20:04)
[2016-09-19] MEDS: POTASSIUM CHLORIDE ORAL LIQUID 20 MEQ/15 ML PO SCH ×2 (11:46→22:15)
[2016-09-19] MEDS: KCL 10 MEQ IVPB 100 ML IVPB SCH ×3 (11:46→14:13)
[2016-09-19] MEDS: NOREPINEPHRINE BITARTRATE 8,000 MCG in SODIUM CHLORIDE 0.45% 992 ML IV SCH (11:48)
[2016-09-19 12:09] LABS: BILIRUBIN,TOTAL 0.5 mg/dL (0.2-1.0); CALCIUM 7.8 mg/dL (8.5-10.1); COCKROFT - GAULT 64.58; CREATININE 2.2 mg/dL (0.7-1.3); TOT PROT 4.2 g/dl (6.4-8.2)
--- NOTE | 2016-09-19 12:33 | PN ---
Progress Note (short form) - Note Progress Note: Events noted chart reviewed Intubated, sedated On pressure support Febrile Vital Signs Period Temp Pulse Resp BP Sys/Gould Pulse Ox Last 24 Hr 93.3 F-1003 F 87-130 14-38 70-130/38-64 88-100 PE: Intubated, sedated Neck: Supple, No JVd Lungs: CTA CVS: S1S2 Abd: benign Ext: No edema Neuro: intubated, sedated CMP Sodium 152 mmol/L (136-145) H 09/19/16 11:14 Potassium 2.7 mmol/L (3.5-5.1) L* 09/19/16 11:14 Chloride 123 mmol/L (98-107) H 09/19/16 11:14 Carbon Dioxide 15 mmol/L (21-32) L 09/19/16 11:14 Anion Gap 14 (8-16) 09/19/16 11:14 BUN 25 mg/dL (7-18) H 09/19/16 11:14 Creatinine 2.2 mg/dL (0.7-1.3) H 09/19/16 11:14 Creat Clearance w eGFR 36.96 (>60) 09/19/16 11:14 POC Glucometer > 400 UNITS (()) 09/19/16 05:07 Random Glucose 439 mg/dL (74-106) H* 09/19/16 11:14 Hemoglobin A1c % 12.9 % (4.8-6.0) H 09/19/16 06:05 Serum Osmolality 350 mosm/kg (278-305) H 09/18/16 23:30 Lactic Acid 0.579 mmol/L (0.4-2.0) 09/19/16 04:00 Calcium 7.8 mg/dL (8.5-10.1) L 09/19/16 11:14 Phosphorus 0.5 mg/dL (2.5-4.9) L* 09/19/16 08:15 Magnesium 2.1 mg/dL (1.8-2.4) 09/19/16 08:15 Total Bilirubin 0.5 mg/dL (0.2-1.0) D 09/19/16 11:14 Direct Bilirubin 0.2 mg/dL (0.0-0.2) D 09/19/16 03:20 AST 47 U/L (15-37) H 09/19/16 11:14 ALT 80 U/L (12-78) H 09/19/16 11:14 Alkaline Phosphatase 102 U/L (45-117) 09/19/16 11:14 LD Total 176 U/L (87-241) 09/19/16 06:05 Creatine Kinase 72 IU/L (39-308) 09/18/16 23:30 Troponin I 0.04 ng/ml (0.00-0.05) D 09/18/16 23:30 Total Protein 4.2 g/dl (6.4-8.2) L 09/19/16 11:14 Albumin 2.0 g/dl (3.4-5.0) L 09/19/16 11:14 Total Amylase 266 U/L (25-115) H 09/19/16 06:05 Lipase 1921 U/L (73-393) H 09/19/16 06:05 Current Medications Generic Name Dose Route Start Last Admin Trade Name Kira PRN Reason Stop Dose Admin Acetaminophen 1,000 mg 09/19/16 10:40 Ofirmev Injection - IVPB 09/20/16 04:41 Q6H PRN FEVER OR PAIN Chlorhexidine Gluconate 1 applic 09/18/16 22:00 09/19/16 01:34 Hibiclens For Decolonization - TP 1 applic HS SILVER Administration Heparin Sodium (Porcine) 5,000 unit 09/19/16 06:00 Heparin - SQ TID SILVER IV Flush 4 ml 09/18/16 20:31 Triple Lumen Flush IVPUSH PRN PRN Protocol Insulin Human Regular 100 100 mls @ 7 mls/hr 09/18/16 15:30 09/19/16 03:26 units/ Sodium Chloride IVPB 10 mls/hr TITR SILVER Administration Protocol 7 UNITS/HR Propofol 100 mls @ 2.722 mls/hr 09/18/16 15:00 09/19/16 02:09 Diprivan - IVPB 21 mls/hr TITR SILVER Administration Protocol 5 MCG/KG/MIN Famotidine/Sodium Chloride 50 mls @ 100 mls/hr 09/19/16 10:00 09/19/16 09:14 Pepcid 20 Mg Premixed Ivpb - IVPB 100 mls/hr BID SILVER Administration Fentanyl 500 mcg/ Dextrose 100 mls @ 10 mls/hr 09/19/16 01:30 09/19/16 10:37 IVPB 10 mls/hr TITR SILVER Administration 50 MCG/HR Potassium Chloride 40 meq/ 1,020 mls @ 200 mls/hr 09/19/16 01:30 09/19/16 11:50 Sodium Chloride IV 200 mls/hr Q5H SILVER Administration Ceftriaxone Sodium 100 mls @ 200 mls/hr 09/19/16 10:00 09/19/16 10:42 Rocephin 2gm Ivpb (Pre-Docked) IVPB 200 mls/hr DAILY SILVER Administration Midazolam HCl 100 mg/ Sodium 100 mls @ 1 mls/hr 09/19/16 09:30 09/19/16 10:22 Chloride IVPB 10 mls/hr TITR SILVER Administration Protocol 1 MG/HR Potassium Chloride 100 mls @ 100 mls/hr 09/19/16 10:45 09/19/16 11:46 Potassium Chloride 10 Meq Premix Ivpb - IVPB 09/19/16 13:44 100 mls/hr Q60M SILVER Administration Norepinephrine Bitartrate 8, 1,000 mls @ 37.5 mls/hr 09/19/16 11:00 09/19/16 11 :48 000 mcg/ Sodium Chloride IV 52.5 mls/hr TITR SILVER Administration Protocol 5 MCG/MIN Potassium Phosphate 30 mm/ 260 mls @ 62.5 mls/hr 09/19/16 14:00 Sodium Chloride IVPB 09/19/16 18:09 ONCE ONE Mupirocin 1 applic 09/18/16 22:00 09/19/16 10:42 Bactroban Ointment (For Decolonization) - NS 09/23/16 21:59 1 applic BID SILVER Administration Potassium Chloride 40 meq 09/19/16 11:00 09/19/16 11:46 Potassium Chloride Oral Liquid PO 40 meq BID SILVER Administration Thiamine HCl 200 mg 09/19/16 10:00 09/19/16 09:14 Vitamin B1 Injection - IVPB 200 mg DAILY SILVER Administration AP: DKA Sepsis Lactic Acidosis ESAN Hypokalemis Improving acidosis Decrease Insulin drip to 4 units/hr BGM Q Hr Adjust Insulin drip rate as ordered Electrolyte replacement as necessary IV abx as per ID
[2016-09-19 12:49] LABS: HIV 1 & 2 AB NEGATIVE; HIV 1 AGp24 NEGATIVE
[2016-09-19 13:02] LABS: THYROID STIMULATING HORMONE 0.37 uIU/ml (0.358-3.74)
[2016-09-19] MEDS ORDERED: D5-1/2NS+40 MEQ KCL - 1,000 ML IV SCH (13:15)
[2016-09-19 13:55] LABS: BILIRUBIN,TOTAL 0.6 mg/dL (0.2-1.0); COCKROFT - GAULT 67.66; CREATININE 2.1 mg/dL (0.7-1.3); MAGNESIUM 2.3 mg/dL (1.8-2.4); TOT PROT 4.2 g/dl (6.4-8.2)
[2016-09-19 14:08] LABS: PHOSPHOROUS 0.9 mg/dL (2.5-4.9)
[2016-09-19 17:05] LABS: ALBUMIN 1.9 g/dl (3.4-5.0); BILIRUBIN,TOTAL 0.4 mg/dL (0.2-1.0); CALCIUM 7.4 mg/dL (8.5-10.1); COCKROFT - GAULT 64.58; CREATININE 2.2 mg/dL (0.7-1.3)
--- NOTE | 2016-09-19 18:32 | EKG ---
Test Reason : Blood Pressure : / mmHG Vent. Rate : 094 BPM Atrial Rate : 094 BPM P-R Int : 136 ms QRS Dur : 110 ms QT Int : 418 ms P-R-T Axes : 067 054 044 degrees QTc Int : 522 ms NORMAL SINUS RHYTHM PROLONGED QT ABNORMAL ECG NO PREVIOUS ECGS AVAILABLE BASELINE ARTIFACT Confirmed by FERCHO JONES, SACHA ([id number]) on 09/19/2016 6:32:08 PM Referred By: Confirmed By:SACHA BRANTLEY MD
--- NOTE | 2016-09-19 18:46 | PN ---
Progress Note, Physician History of Present Illness: Pt seen and examined at bedside. He remains in the ICU. He is intubated and mechanically ventilated. - Current Medication List Current Medications: Active Medications Acetaminophen (Ofirmev Injection -) 1,000 mg IVPB Q6H PRN PRN Reason: FEVER OR PAIN Stop: 09/20/16 04:41 Last Admin: 09/19/16 12:53 Dose: 1,000 mg Chlorhexidine Gluconate (Hibiclens For Decolonization -) 1 applic TP HS SILVER Last Admin: 09/19/16 01:34 Dose: 1 applic Heparin Sodium (Porcine) (Heparin -) 5,000 unit SQ TID SILVER Last Admin: 09/19/16 14:17 Dose: 5,000 unit IV Flush (Triple Lumen Flush) 4 ml IVPUSH PRN PRN PRN Reason: Protocol Insulin Human Regular 100 (units/ Sodium Chloride) 100 mls @ 7 mls/hr IVPB TITR SILVER; 7 UNITS/HR PRN Reason: Protocol Last Titration: 09/19/16 18:15 Dose: 1 units/hr Propofol (Diprivan -) 100 mls @ 2.722 mls/hr IVPB TITR SILVER; 5 MCG/KG/MIN PRN Reason: Protocol Last Admin: 09/19/16 15:03 Dose: 26 mls/hr Famotidine/Sodium Chloride (Pepcid 20 Mg Premixed Ivpb -) 50 mls @ 100 mls/hr IVPB BID SILVER Last Admin: 09/19/16 09:14 Dose: 100 mls/hr Fentanyl 500 mcg/ Dextrose 100 mls @ 10 mls/hr IVPB TITR SILVER PRN Reason: 50 MCG/HR Last Admin: 09/19/16 10:37 Dose: 10 mls/hr Ceftriaxone Sodium (Rocephin 2gm Ivpb (Pre-Docked)) 100 mls @ 200 mls/hr IVPB DAILY SILVER Last Admin: 09/19/16 10:42 Dose: 200 mls/hr Midazolam HCl 100 mg/ Sodium (Chloride) 100 mls @ 1 mls/hr IVPB TITR SILVER; 1 MG/ HR PRN Reason: Protocol Last Admin: 09/19/16 10:22 Dose: 10 mls/hr Norepinephrine Bitartrate 8, (000 mcg/ Sodium Chloride) 1,000 mls @ 37.5 mls/ hr IV TITR SILVER; 5 MCG/MIN PRN Reason: Protocol Last Titration: 09/19/16 16:20 Dose: 7 mcg/min Dextrose/Sodium Chloride (D5-1/2ns+40 Meq Kcl -) 1,000 mls @ 125 mls/hr IV ASDIR SILVER Last Admin: 09/19/16 14:02 Dose: 125 mls/hr Mupirocin (Bactroban Ointment (For Decolonization) -) 1 applic NS BID SILVER Stop: 09/23/16 21:59 Last Admin: 09/19/16 10:42 Dose: 1 applic Potassium Chloride (Potassium Chloride Oral Liquid) 40 meq PO BID SILVER Last Admin: 09/19/16 11:46 Dose: 40 meq Thiamine HCl (Vitamin B1 Injection -) 200 mg IVPB DAILY [facility] Last Admin: 09/19/16 09:14 Dose: 200 mg - Objective Vital Signs: Vital Signs Temperature 100.5 F H 09/19/16 16:00 Pulse Rate 110 H 09/19/16 16:20 Respiratory Rate 35 H 09/19/16 16:31 Blood Pressure 82/55 09/19/16 16:20 O2 Sat by Pulse Oximetry (%) 100 09/18/16 22:14 Constitutional: Yes: Calm Eyes: Yes: Conjunctiva Clear HENT: Yes: Atraumatic Cardiovascular: Yes: S1, S2 Respiratory: Yes: Mechanically Ventilated Gastrointestinal: Yes: Soft, Abdomen, Obese Genitourinary: Yes: Kelly Present Musculoskeletal: Yes: Muscle Weakness Edema: No Neurological: Yes: Other (sedated) Labs: CBC, BMP 09/19/16 06:05 09/19/16 16:10 INR, PTT INR 1.04 (0.82-1.09) 09/19/16 10:15 Fibrinogen < 100.0 mg/dL (238-498) L* 09/18/16 18:00 - ....Imaging Chest X-ray: Report Reviewed Problem List - Problems (1) Acute renal insufficiency Code(s): N28.9 - DISORDER OF KIDNEY AND URETER, UNSPECIFIED (2) Altered mental status Code(s): R41.82 - ALTERED MENTAL STATUS, UNSPECIFIED Qualifiers: Altered mental status type: stupor Qualified Code(s): R40.1 - Stupor (3) Lactic acidosis Code(s): E87.2 - ACIDOSIS (4) Leukocytosis Code(s): D72.829 - ELEVATED WHITE BLOOD CELL COUNT, UNSPECIFIED (5) Respiratory failure Code(s): J96.90 - RESPIRATORY FAILURE, UNSP, UNSP W HYPOXIA OR HYPERCAPNIA Assessment/Plan Current Medications Generic Name Dose Route Start Last Admin Trade Name Freq PRN Reason Stop Dose Admin Acetaminophen 1,000 mg 09/19/16 10:40 09/19/16 12:53 Ofirmev Injection - IVPB 09/20/16 04:41 1,000 mg Q6H PRN Administration FEVER OR PAIN Chlorhexidine Gluconate 1 applic 09/18/16 22:00 09/19/16 01:34 Hibiclens For Decolonization - TP 1 applic HS SILVER Administration Heparin Sodium (Porcine) 5,000 unit 09/19/16 06:00 09/19/16 14:17 Heparin - SQ 5,000 unit TID SILVER Administration IV Flush 4 ml 09/18/16 20:31 Triple Lumen Flush IVPUSH PRN PRN Protocol Insulin Human Regular 100 100 mls @ 7 mls/hr 09/18/16 15:30 09/19/16 18:15 units/ Sodium Chloride IVPB 1 units/hr TITR SILVER Titration Protocol 7 UNITS/HR Propofol 100 mls @ 2.722 mls/hr 09/18/16 15:00 09/19/16 15:03 Diprivan - IVPB 26 mls/hr TITR SILVER Administration Protocol 5 MCG/KG/MIN Famotidine/Sodium Chloride 50 mls @ 100 mls/hr 09/19/16 10:00 09/19/16 09:14 Pepcid 20 Mg Premixed Ivpb - IVPB 100 mls/hr BID SILVER Administration Fentanyl 500 mcg/ Dextrose 100 mls @ 10 mls/hr 09/19/16 01:30 09/19/16 10:37 IVPB 10 mls/hr TITR SILVER Administration 50 MCG/HR Ceftriaxone Sodium 100 mls @ 200 mls/hr 09/19/16 10:00 09/19/16 10:42 Rocephin 2gm Ivpb (Pre-Docked) IVPB 200 mls/hr DAILY SILVER Administration Midazolam HCl 100 mg/ Sodium 100 mls @ 1 mls/hr 09/19/16 09:30 09/19/16 10:22 Chloride IVPB 10 mls/hr TITR SILVER Administration Protocol 1 MG/HR Norepinephrine Bitartrate 8, 1,000 mls @ 37.5 mls/hr 09/19/16 11:00 09/19/16 16 :20 000 mcg/ Sodium Chloride IV 7 mcg/min TITR SILVER Titration Protocol 5 MCG/MIN Dextrose/Sodium Chloride 1,000 mls @ 125 mls/hr 09/19/16 13:15 09/19/16 14:02 D5-1/2ns+40 Meq Kcl - IV 125 mls/hr ASDIR SILVER Administration Mupirocin 1 applic 09/18/16 22:00 09/19/16 10:42 Bactroban Ointment (For Decolonization) - NS 09/23/16 21:59 1 applic BID SILVER Administration Potassium Chloride 40 meq 09/19/16 11:00 09/19/16 11:46 Potassium Chloride Oral Liquid PO 40 meq BID SILVER Administration Thiamine HCl 200 mg 09/19/16 10:00 09/19/16 09:14 Vitamin B1 Injection - IVPB 200 mg DAILY SILVER Administration Impression 1. SEAN 2. metabolic acidosis 3. gross hematuria 4. DKA 5. sepsis 6. lactic acidosis 7. acute respiratory failure requiring intubation 8. etoh abuse - active 9. cocain use active 10 hypokalemia Plan - cont with fluids - monitor potassium and supplement as needed - renal workup in progress - monitor urine output, pt is making urine - vent support - pressors to a map of 65 - discussed with pulmonary and ICU team - discussed with medical attending - pts family brought in a bag of over the counter supplements that the patient was taking from [place]. There was also a bag of tea that is not identified. - keep in ICU Dr Espinoza
[2016-09-19] MEDS ORDERED: PROPOFOL 100 ML ONE (19:11)
[2016-09-19 20:51] LABS: URINE APPEARANCE CLEAR; URINE BILIRUBIN NEGATIVE (NEGATIVE); URINE COLOR LTYELLOW; URINE GLUCOSE (UA) 3+ (NEGATIVE); URINE KETONE 1+ (NEGATIVE); URINE LEUK ESTERASE NEGATIVE (NEGATIVE); URINE NITRITE NEGATIVE (NEGATIVE); URINE UROBILINOGEN NEGATIVE E.U./dl (0.2-1.0)
[2016-09-19 20:55] LABS: URINE BLOOD 3+ (NEGATIVE); URINE PROTEIN 2+ (NEGATIVE)
[2016-09-19 20:58] LABS: URINE BACTERIA RARE /hpf (NONE SEEN); URINE MUCUS RARE; URINE RBC 18 /hpf (0-3); URINE WBC 5 /hpf (3-5)
[2016-09-19 21:14] LABS: CALCIUM 7.4 mg/dL (8.5-10.1); COCKROFT - GAULT 64.58; CREATININE 2.2 mg/dL (0.7-1.3); MAGNESIUM 2.4 mg/dL (1.8-2.4); PHOSPHOROUS 1.8 mg/dL (2.5-4.9)
[2016-09-19] MEDS ORDERED: PROPOFOL 200 ML ONE (22:37)
[2016-09-20] MEDS ORDERED: SODIUM CHLORIDE 0.45% 1,000 ML with POTASSIUM CHLORIDE 40 MEQ IVPB SCH (00:15)
[2016-09-20] MEDS: FENTANYL INJECTION 500 MCG in DEXTROSE 5%-WATER - 90 ML IVPB SCH ×5 (00:40→22:40)
[2016-09-20 01:26] LABS: CALCIUM 7.2 mg/dL (8.5-10.1); COCKROFT - GAULT 61.77; CREATININE 2.3 mg/dL (0.7-1.3); MAGNESIUM 2.2 mg/dL (1.8-2.4); PHOSPHOROUS 2.8 mg/dL (2.5-4.9)
[2016-09-20] MEDS ORDERED: PROPOFOL 100 ML ONE ×2 (02:28→15:15)
[2016-09-20] MEDS: HEPARIN NA (PORCINE) 5,000 UNITS/ML 1ML VIAL SQ SCH ×3 (06:00→22:04)
[2016-09-20 06:21] LABS: BASOPHIL 0.4 % (0-2.0); EOSINOPHIL 0.3 % (0-4.5); MCH 31.8 pg (25.7-33.7); MCHC 36.4 g/dl (32.0-35.9); MEAN CELL VOLUME 87.3 fl (80-96); MEAN PLT VOLUME 11.2 fl (7.5-11.1); NEUTROPHILS 82.9 % (42.8-82.8); PLATELET COUNT 120 K/MM3 (134-434); RDW 14.2 % (11.9-15.9); WHITE BLOOD COUNT 9.3 K/mm3 (4.0-10.0)
[2016-09-20] MEDS ORDERED: D5-1/2NS+40 MEQ KCL - 1,000 ML IV SCH (06:30)
[2016-09-20 06:42] LABS: ALBUMIN 1.9 g/dl (3.4-5.0); BILIRUBIN,TOTAL 0.4 mg/dL (0.2-1.0); CALCIUM 7.2 mg/dL (8.5-10.1); COCKROFT - GAULT 75.99; CREATININE 2.1 mg/dL (0.7-1.3); MAGNESIUM 2.1 mg/dL (1.8-2.4); PHOSPHOROUS 2.4 mg/dL (2.5-4.9); TOT PROT 4.4 g/dl (6.4-8.2)
[2016-09-20 07:51] LABS: ARTERIAL BLD GAS O2 SATURATION 97.7 % (90-98.9); ARTERIAL BLOOD GAS BASE EXCESS -12.8 meq/l (-2-2)
[2016-09-20 07:52] LABS: ARTERIAL BLOOD GAS pH 7.26 (7.35-7.45)
[2016-09-20 07:56] LABS: ALLENS TEST POSITIVE; ART PUNCT SITE RIGHT RADIAL; LPM/O2% 40; MECH. VENT. YES; PT. ON O2? YES; TYPE OF O2 MECH VENT; VENT RATE 35; VT/PRESS 450
[2016-09-20 07:57] LABS: ARTERIAL BLOOD GAS HCO3 12.4 meq/L (22-26)
--- NOTE | 2016-09-20 08:10 | PN ---
Progress Note, Physician Chief Complaint: ID Remains intubated hypoxic and febrile 101.8 rectally Empiric Ceftriaxone - Current Medication List Current Medications: Active Medications Chlorhexidine Gluconate (Hibiclens For Decolonization -) 1 applic TP HS SILVER Last Admin: 09/19/16 22:15 Dose: 1 applic Heparin Sodium (Porcine) (Heparin -) 5,000 unit SQ TID SILVER Last Admin: 09/19/16 22:15 Dose: 5,000 unit IV Flush (Triple Lumen Flush) 4 ml IVPUSH PRN PRN PRN Reason: Protocol Insulin Human Regular 100 (units/ Sodium Chloride) 100 mls @ 7 mls/hr IVPB TITR SILVER; 7 UNITS/HR PRN Reason: Protocol Last Titration: 09/20/16 07:22 Dose: 4 units/hr Propofol (Diprivan -) 100 mls @ 2.722 mls/hr IVPB TITR SILVER; 5 MCG/KG/MIN PRN Reason: Protocol Last Titration: 09/20/16 05:53 Dose: 60 mcg/kg/min Famotidine/Sodium Chloride (Pepcid 20 Mg Premixed Ivpb -) 50 mls @ 100 mls/hr IVPB BID SILVER Last Admin: 09/19/16 22:14 Dose: 100 mls/hr Fentanyl 500 mcg/ Dextrose 100 mls @ 10 mls/hr IVPB TITR SILVER PRN Reason: 50 MCG/HR Last Admin: 09/20/16 00:40 Dose: 12 mls/hr Ceftriaxone Sodium (Rocephin 2gm Ivpb (Pre-Docked)) 100 mls @ 200 mls/hr IVPB DAILY [facility] Last Admin: 09/19/16 10:42 Dose: 200 mls/hr Midazolam HCl 100 mg/ Sodium (Chloride) 100 mls @ 1 mls/hr IVPB TITR SILVER; 1 MG/ HR PRN Reason: Protocol Last Admin: 09/19/16 10:22 Dose: 10 mls/hr Norepinephrine Bitartrate 8, (000 mcg/ Sodium Chloride) 1,000 mls @ 37.5 mls/ hr IV TITR SILVER; 5 MCG/MIN PRN Reason: Protocol Last Titration: 09/20/16 05:52 Dose: 5 mcg/min Dextrose/Sodium Chloride (D5-1/2ns+40 Meq Kcl -) 1,000 mls @ 120 mls/hr IV ASDIR SILVER Last Admin: 09/20/16 07:22 Dose: 120 mls/hr Mupirocin (Bactroban Ointment (For Decolonization) -) 1 applic NS BID [facility] Stop: 09/23/16 21:59 Last Admin: 09/19/16 22:14 Dose: 1 applic Potassium Chloride (Potassium Chloride Oral Liquid) 40 meq PO BID [facility] Last Admin: 09/19/16 22:15 Dose: 40 meq Thiamine HCl (Vitamin B1 Injection -) 200 mg IVPB DAILY [facility] Last Admin: 09/19/16 09:14 Dose: 200 mg - Objective Vital Signs: Vital Signs Temperature 99.4 F 09/20/16 06:00 Pulse Rate 92 H 09/20/16 06:00 Respiratory Rate 36 H 09/20/16 07:22 Blood Pressure 98/65 09/20/16 06:00 O2 Sat by Pulse Oximetry (%) 100 09/19/16 20:14 Constitutional: Yes: Other (Intubated) Cardiovascular: Yes: S1, S2 Respiratory: Yes: WNL, Regular, CTA Bilaterally. No: Rhonchi Gastrointestinal: Yes: Soft. No: Tenderness, Tenderness, Rebound Labs: CBC, BMP 09/20/16 05:40 09/20/16 05:40 INR, PTT INR 1.04 (0.82-1.09) 09/19/16 10:15 Fibrinogen < 100.0 mg/dL (238-498) L* 09/18/16 18:00 Problem List - Problems (1) Acute renal insufficiency Code(s): N28.9 - DISORDER OF KIDNEY AND URETER, UNSPECIFIED (2) Altered mental status Code(s): R41.82 - ALTERED MENTAL STATUS, UNSPECIFIED Qualifiers: Altered mental status type: stupor Qualified Code(s): R40.1 - Stupor (3) DKA (diabetic ketoacidosis) Code(s): E13.10 - OTH DIABETES MELLITUS WITH KETOACIDOSIS WITHOUT COMA Qualifiers: Diabetes mellitus type: type 1 Diabetes mellitus complication detail: with coma Qualified Code(s): E10.11 - Type 1 diabetes mellitus with ketoacidosis with coma (4) Lactic acidosis Code(s): E87.2 - ACIDOSIS (5) Sepsis Code(s): A41.9 - SEPSIS, UNSPECIFIED ORGANISM Assessment/Plan Microbiology 09/18/16 22:00 Cerebral Spinal Fluid - Lumbar Puncture Gram Stain - Final 09/18/16 22:00 Cerebral Spinal Fluid - Lumbar Puncture Gram Stain - Final 09/18/16 14:00 Blood - Peripheral Venous Blood Culture - Preliminary NO GROWTH OBTAINED AFTER 24 HOURS, INCUBATION TO CONTINUE FOR 4 DAYS. 09/18/16 14:00 Blood - Peripheral Venous Blood Culture - Preliminary NO GROWTH OBTAINED AFTER 24 HOURS, INCUBATION TO CONTINUE FOR 4 DAYS. Laboratory Tests 09/18/16 09/19/16 09/19/16 14:00 06:05 11:14 WBC 17.9 H Hgb Hct Plt Count ABG pH ABG pCO2 at Pt Temp ABG pO2 at Pt Temp ABG HCO3 Oxygen Flow Rate RPR Titer Nonreactive HIV 1&2 Antibody Screen Negative HIV P24 Antigen Negative 09/20/16 09/20/16 05:40 07:35 WBC 9.3 Hgb 10.3 L Hct 28.4 L Plt Count 120 L ABG pH 7.26 L ABG pCO2 at Pt Temp 29.4 L D ABG pO2 at Pt Temp 127.0 H D ABG HCO3 12.4 L* Oxygen Flow Rate 40 RPR Titer HIV 1&2 Antibody Screen HIV P24 Antigen Assessment Multiorgan failure Polysubstance abuse Respiratory failure SEAN Must assume sepsis DKA Altered mental status Acidosis Plan In view of persistant fevers will broaden coverage to Zosyn Await chest xray for ?pneumonia Send sputum culture LGA Head CT when stable Junie JONES
[2016-09-20 08:50] LABS: COCKROFT - GAULT 75.99; CREATININE 2.1 mg/dL (0.7-1.3); MAGNESIUM 1.9 mg/dL (1.8-2.4); PHOSPHOROUS 2.8 mg/dL (2.5-4.9)
[2016-09-20] MEDS: PROPOFOL 100 ML IVPB SCH ×4 (08:50→20:00)
--- NOTE | 2016-09-20 09:28 | PN ---
Progress Note (short form) - Note Progress Note: PULMONARY/CCM Pt seen and examined in the ICU. Remains intubated, sedated on levophed gtt. Low grade temps overnight. Vented on volume assist control with 40% FiO2. Last Vital Signs Temp Pulse Resp BP Pulse Ox 99.4 F 92 H 36 H 98/65 100 09/20/16 06:00 09/20/16 06:00 09/20/16 07:22 09/20/16 06:00 09/19/16 20:14 Intake & Output 09/17/16 09/18/16 09/19/16 09/20/16 23:59 23:59 23:59 23:59 Intake Total 4000 9256.8 2772.4 Output Total 600 2600 1500 Balance 3400 6656.8 1272.4 Weight 194 lb 194 lb 7 oz 218 lb 6 oz Gen: intubated, sedated Heart: RRR Lung: decreased breath sounds at the bases Abd: soft, nontender Ext: trace edema CBC, BMP 09/20/16 05:40 09/20/16 08:10 Active Medications Acetaminophen (Ofirmev Injection -) 1,000 mg IVPB Q6H PRN PRN Reason: FEVER OR PAIN Stop: 09/21/16 02:11 Chlorhexidine Gluconate (Hibiclens For Decolonization -) 1 applic TP HS SILVER Last Admin: 09/19/16 22:15 Dose: 1 applic Heparin Sodium (Porcine) (Heparin -) 5,000 unit SQ TID SILVER Last Admin: 09/19/16 22:15 Dose: 5,000 unit IV Flush (Triple Lumen Flush) 4 ml IVPUSH PRN PRN PRN Reason: Protocol Insulin Human Regular 100 (units/ Sodium Chloride) 100 mls @ 7 mls/hr IVPB TITR SILVER; 7 UNITS/HR PRN Reason: Protocol Last Titration: 09/20/16 07:22 Dose: 4 units/hr Propofol (Diprivan -) 100 mls @ 2.722 mls/hr IVPB TITR SILVER; 5 MCG/KG/MIN PRN Reason: Protocol Last Titration: 09/20/16 05:53 Dose: 60 mcg/kg/min Famotidine/Sodium Chloride (Pepcid 20 Mg Premixed Ivpb -) 50 mls @ 100 mls/hr IVPB BID SILVER Last Admin: 09/19/16 22:14 Dose: 100 mls/hr Fentanyl 500 mcg/ Dextrose 100 mls @ 10 mls/hr IVPB TITR SILVER PRN Reason: 50 MCG/HR Last Admin: 09/20/16 00:40 Dose: 12 mls/hr Midazolam HCl 100 mg/ Sodium (Chloride) 100 mls @ 1 mls/hr IVPB TITR SILVER; 1 MG/ HR PRN Reason: Protocol Last Admin: 09/19/16 10:22 Dose: 10 mls/hr Norepinephrine Bitartrate 8, (000 mcg/ Sodium Chloride) 1,000 mls @ 37.5 mls/ hr IV TITR SILVER; 5 MCG/MIN PRN Reason: Protocol Last Titration: 09/20/16 05:52 Dose: 5 mcg/min Dextrose/Sodium Chloride (D5-1/2ns+40 Meq Kcl -) 1,000 mls @ 120 mls/hr IV ASDIR SILVER Last Admin: 09/20/16 07:22 Dose: 120 mls/hr Piperacillin Sod/Tazobactam Sod (Zosyn 3.375gm Ivpb (Pre-Docked)) 50 mls @ 100 mls/hr IVPB Q8H-IV SILVER PRN Reason: Protocol Mupirocin (Bactroban Ointment (For Decolonization) -) 1 applic NS BID [facility] Stop: 09/23/16 21:59 Last Admin: 09/19/16 22:14 Dose: 1 applic Potassium Chloride (Potassium Chloride Oral Liquid) 40 meq PO BID [facility] Last Admin: 09/19/16 22:15 Dose: 40 meq Thiamine HCl (Vitamin B1 Injection -) 200 mg IVPB DAILY [facility] Last Admin: 09/19/16 09:14 Dose: 200 mg A/P Acute Respiratory Failure Polysubstance Abuse Diabetic Ketoacidosis Metabolic Acidosis r/o Septic Shock Acute Kidney Injury Lactic Acidosis Elevated LFTs - continue empiric antibiotics - f/u cultures - IVF - monitor urine output, creatinine - keep CVP 8-12 - titrate pressors to maintain MAP >65 - replete lytes - sedate for vent synchrony - monitor ABG - bicarb per renal - lighten sedation in AM to assess mental status - spontaneous breathing trials as tolerated when mental status improved - enteral feeds if unable to extubate - DVT/GI prophylaxis - continue ICU monitoring critical care time spent in reviewing chart, evaluating patient and formulating plan 36 min
[2016-09-20] MEDS: ACETAMINOPHEN 1000 MG/100 ML VIAL (NON FORMULARY) IVPB PRN ×2 (10:00→17:57)
[2016-09-20] MEDS: MUPIROCIN 2% TOPICAL OINTMENT FOR DECOLONIZATION NS SCH ×2 (10:19→22:07)
[2016-09-20] MEDS: PIPERACILLIN/TAZOB 3.375 GM 50 ML IVPB SCH ×2 (10:19→18:10)
[2016-09-20] MEDS: FAMOTIDINE 20 MG/50 ML IVPB 50 ML IVPB SCH ×2 (10:20→22:07)
[2016-09-20] MEDS: THIAMINE HCL 200 MG/2 ML VIAL IVPB SCH (10:23)
[2016-09-20] MEDS: POTASSIUM CHLORIDE ORAL LIQUID 20 MEQ/15 ML PO SCH ×2 (10:23→22:10)
--- NOTE | 2016-09-20 11:04 | PN ---
Progress Note (short form) - Note Progress Note: Events noted chart reviewed Still Intubated, sedated On pressure support Febrile Vital Signs Period Temp Pulse Resp BP Sys/Gould Pulse Ox Last 24 Hr 99.4 F-100.9 F 92-115 30-36 82-128/49-81 100-100 PE: Intubated, sedated Neck: Supple, No JVd Lungs: CTA CVS: S1S2 Abd: benign Ext: No edema Neuro: intubated, sedated CMP Sodium 154 mmol/L (136-145) H 09/20/16 08:10 Potassium 3.9 mmol/L (3.5-5.1) 09/20/16 08:10 Chloride 130 mmol/L (98-107) H 09/20/16 08:10 Carbon Dioxide 16 mmol/L (21-32) L 09/20/16 08:10 Anion Gap 8 (8-16) 09/20/16 08:10 BUN 25 mg/dL (7-18) H 09/20/16 08:10 Creatinine 2.1 mg/dL (0.7-1.3) H 09/20/16 08:10 Creat Clearance w eGFR 39.00 (>60) 09/20/16 05:40 POC Glucometer 272.35959 UNITS (()) 09/20/16 10:07 Random Glucose 196 mg/dL (74-106) H D 09/20/16 08:10 Hemoglobin A1c % 12.9 % (4.8-6.0) H 09/19/16 06:05 Serum Osmolality 350 mosm/kg (278-305) H 09/18/16 23:30 Lactic Acid 0.579 mmol/L (0.4-2.0) 09/19/16 04:00 Calcium 7.0 mg/dL (8.5-10.1) L 09/20/16 08:10 Phosphorus 2.8 mg/dL (2.5-4.9) 09/20/16 08:10 Magnesium 1.9 mg/dL (1.8-2.4) 09/20/16 08:10 Total Bilirubin 0.4 mg/dL (0.2-1.0) 09/20/16 05:40 Direct Bilirubin 0.2 mg/dL (0.0-0.2) D 09/19/16 03:20 AST 53 U/L (15-37) H D 09/20/16 05:40 ALT 76 U/L (12-78) 09/20/16 05:40 Alkaline Phosphatase 106 U/L (45-117) 09/20/16 05:40 LD Total 176 U/L (87-241) 09/19/16 06:05 Creatine Kinase 72 IU/L (39-308) 09/18/16 23:30 Troponin I 0.04 ng/ml (0.00-0.05) D 09/18/16 23:30 Total Protein 4.4 g/dl (6.4-8.2) L 09/20/16 05:40 Albumin 1.9 g/dl (3.4-5.0) L 09/20/16 05:40 Total Amylase 98 U/L (25-115) D 09/20/16 05:40 Lipase 262 U/L (73-393) 09/20/16 05:40 TSH 0.37 uIU/ml (0.358-3.74) 09/18/16 20:25 Current Medications Generic Name Dose Route Start Last Admin Trade Name Freq PRN Reason Stop Dose Admin Acetaminophen 1,000 mg 09/20/16 08:10 Ofirmev Injection - IVPB 09/21/16 02:11 Q6H PRN FEVER OR PAIN Chlorhexidine Gluconate 1 applic 09/18/16 22:00 09/19/16 22:15 Hibiclens For Decolonization - TP 1 applic HS SIVLER Administration Heparin Sodium (Porcine) 5,000 unit 09/19/16 06:00 09/20/16 06:00 Heparin - SQ Not Given TID SILVER IV Flush 4 ml 09/18/16 20:31 Triple Lumen Flush IVPUSH PRN PRN Protocol Insulin Human Regular 100 100 mls @ 7 mls/hr 09/18/16 15:30 09/20/16 07:22 units/ Sodium Chloride IVPB 4 units/hr TITR SILVER Titration Protocol 7 UNITS/HR Propofol 100 mls @ 2.722 mls/hr 09/18/16 15:00 09/20/16 05:53 Diprivan - IVPB 60 mcg/kg/min TITR SILVER Titration Protocol 5 MCG/KG/MIN Famotidine/Sodium Chloride 50 mls @ 100 mls/hr 09/19/16 10:00 09/20/16 10:20 Pepcid 20 Mg Premixed Ivpb - IVPB 100 mls/hr BID SILVER Administration Fentanyl 500 mcg/ Dextrose 100 mls @ 10 mls/hr 09/19/16 01:30 09/20/16 00:40 IVPB 12 mls/hr TITR SILVER Administration 50 MCG/HR Midazolam HCl 100 mg/ Sodium 100 mls @ 1 mls/hr 09/19/16 09:30 09/19/16 10:22 Chloride IVPB 10 mls/hr TITR SILVER Administration Protocol 1 MG/HR Norepinephrine Bitartrate 8, 1,000 mls @ 37.5 mls/hr 09/19/16 11:00 09/20/16 05 :52 000 mcg/ Sodium Chloride IV 5 mcg/min TITR SILVER Titration Protocol 5 MCG/MIN Dextrose/Sodium Chloride 1,000 mls @ 120 mls/hr 09/20/16 06:30 09/20/16 07:22 D5-1/2ns+40 Meq Kcl - IV 120 mls/hr ASDIR SILVER Administration Piperacillin Sod/Tazobactam Sod 50 mls @ 100 mls/hr 09/20/16 09:00 09/20/16 10: 19 Zosyn 3.375gm Ivpb (Pre-Docked) IVPB 100 mls/hr Q8H-IV SILVER Administration Protocol Mupirocin 1 applic 09/18/16 22:00 09/20/16 10:19 Bactroban Ointment (For Decolonization) - NS 09/23/16 21:59 1 applic BID SILVER Administration Potassium Chloride 40 meq 09/19/16 11:00 09/20/16 10:23 Potassium Chloride Oral Liquid PO 40 meq BID SILVER Administration Thiamine HCl 200 mg 09/19/16 10:00 09/20/16 10:23 Vitamin B1 Injection - IVPB 200 mg DAILY SILVER Administration AP: DKA: Blood sugar improving Respiratory failure Sepsis Lactic Acidosis SEAN Hypokalemia Improving acidosis Continue Insulin drip BGM Q Hr Adjust Insulin drip rate as ordered Electrolyte replacement as necessary Pressure support IV abx
[2016-09-20] MEDS: MIDAZOLAM 100 MG in SODIUM CHLORIDE 100 ML IVPB SCH ×2 (11:08→20:00)
[2016-09-20] MEDS ORDERED: NOREPINEPHRINE BITARTRATE 4 MG/4 ML ML IV ONE ×2 (11:10→22:48)
[2016-09-20 13:35] LABS: COCKROFT - GAULT 75.99; CREATININE 2.1 mg/dL (0.7-1.3)
--- NOTE | 2016-09-20 15:18 | PN ---
Progress Note, Physician History of Present Illness: Pt seen and examined at bedside. He remains in the ICU. He remains intubated and mechanically ventilated. - Current Medication List Current Medications: Active Medications Acetaminophen (Ofirmev Injection -) 1,000 mg IVPB Q6H PRN PRN Reason: FEVER OR PAIN Stop: 09/21/16 02:11 Chlorhexidine Gluconate (Hibiclens For Decolonization -) 1 applic TP HS SILVER Last Admin: 09/19/16 22:15 Dose: 1 applic Heparin Sodium (Porcine) (Heparin -) 5,000 unit SQ TID SILVER Last Admin: 09/20/16 06:00 Dose: Not Given IV Flush (Triple Lumen Flush) 4 ml IVPUSH PRN PRN PRN Reason: Protocol Insulin Human Regular 100 (units/ Sodium Chloride) 100 mls @ 7 mls/hr IVPB TITR SILVER; 7 UNITS/HR PRN Reason: Protocol Last Titration: 09/20/16 07:22 Dose: 4 units/hr Propofol (Diprivan -) 100 mls @ 2.722 mls/hr IVPB TITR SILVER; 5 MCG/KG/MIN PRN Reason: Protocol Last Titration: 09/20/16 05:53 Dose: 60 mcg/kg/min Famotidine/Sodium Chloride (Pepcid 20 Mg Premixed Ivpb -) 50 mls @ 100 mls/hr IVPB BID SILVER Last Admin: 09/20/16 10:20 Dose: 100 mls/hr Fentanyl 500 mcg/ Dextrose 100 mls @ 10 mls/hr IVPB TITR SILVER PRN Reason: 50 MCG/HR Last Admin: 09/20/16 14:02 Dose: 12 mls/hr Midazolam HCl 100 mg/ Sodium (Chloride) 100 mls @ 1 mls/hr IVPB TITR SILVER; 1 MG/ HR PRN Reason: Protocol Last Admin: 09/20/16 11:08 Dose: 10 mls/hr Norepinephrine Bitartrate 8, (000 mcg/ Sodium Chloride) 1,000 mls @ 37.5 mls/ hr IV TITR SILVER; 5 MCG/MIN PRN Reason: Protocol Last Titration: 09/20/16 05:52 Dose: 5 mcg/min Dextrose/Sodium Chloride (D5-1/2ns+40 Meq Kcl -) 1,000 mls @ 120 mls/hr IV ASDIR SILVER Last Admin: 09/20/16 07:22 Dose: 120 mls/hr Piperacillin Sod/Tazobactam Sod (Zosyn 3.375gm Ivpb (Pre-Docked)) 50 mls @ 100 mls/hr IVPB Q8H-IV SILVER PRN Reason: Protocol Last Admin: 09/20/16 10:19 Dose: 100 mls/hr Mupirocin (Bactroban Ointment (For Decolonization) -) 1 applic NS BID [facility] Stop: 09/23/16 21:59 Last Admin: 09/20/16 10:19 Dose: 1 applic Potassium Chloride (Potassium Chloride Oral Liquid) 40 meq PO BID SILVER Last Admin: 09/20/16 10:23 Dose: 40 meq Thiamine HCl (Vitamin B1 Injection -) 200 mg IVPB DAILY [facility] Last Admin: 09/20/16 10:23 Dose: 200 mg - Objective Vital Signs: Vital Signs Temperature 99.4 F 09/20/16 06:00 Pulse Rate 92 H 09/20/16 06:00 Respiratory Rate 35 H 09/20/16 14:26 Blood Pressure 98/65 09/20/16 06:00 O2 Sat by Pulse Oximetry (%) 100 09/20/16 09:00 Constitutional: Yes: Calm Neck: Yes: Supple Cardiovascular: Yes: S1, S2 Respiratory: Yes: Mechanically Ventilated Gastrointestinal: Yes: Soft, Abdomen, Obese Genitourinary: Yes: WNL, Kelly Present Musculoskeletal: Yes: Muscle Weakness Edema: LUE: Trace, RUE: Trace Neurological: Yes: Other (sedated) Labs: CBC, BMP 09/20/16 05:40 09/20/16 13:00 INR, PTT INR 1.04 (0.82-1.09) 09/19/16 10:15 Fibrinogen < 100.0 mg/dL (238-498) L* 09/18/16 18:00 - ....Imaging Chest X-ray: Report Reviewed Problem List - Problems (1) Acute renal insufficiency Code(s): N28.9 - DISORDER OF KIDNEY AND URETER, UNSPECIFIED (2) Altered mental status Code(s): R41.82 - ALTERED MENTAL STATUS, UNSPECIFIED Qualifiers: Altered mental status type: stupor Qualified Code(s): R40.1 - Stupor (3) Lactic acidosis Code(s): E87.2 - ACIDOSIS (4) Leukocytosis Code(s): D72.829 - ELEVATED WHITE BLOOD CELL COUNT, UNSPECIFIED (5) Respiratory failure Code(s): J96.90 - RESPIRATORY FAILURE, UNSP, UNSP W HYPOXIA OR HYPERCAPNIA Assessment/Plan Current Medications Generic Name Dose Route Start Last Admin Trade Name Freq PRN Reason Stop Dose Admin Acetaminophen 1,000 mg 09/20/16 08:10 Ofirmev Injection - IVPB 09/21/16 02:11 Q6H PRN FEVER OR PAIN Chlorhexidine Gluconate 1 applic 09/18/16 22:00 09/19/16 22:15 Hibiclens For Decolonization - TP 1 applic HS SILVER Administration Heparin Sodium (Porcine) 5,000 unit 09/19/16 06:00 09/20/16 06:00 Heparin - SQ Not Given TID SILVER IV Flush 4 ml 09/18/16 20:31 Triple Lumen Flush IVPUSH PRN PRN Protocol Insulin Human Regular 100 100 mls @ 7 mls/hr 09/18/16 15:30 09/20/16 07:22 units/ Sodium Chloride IVPB 4 units/hr TITR SILVER Titration Protocol 7 UNITS/HR Propofol 100 mls @ 2.722 mls/hr 09/18/16 15:00 09/20/16 05:53 Diprivan - IVPB 60 mcg/kg/min TITR SILVER Titration Protocol 5 MCG/KG/MIN Famotidine/Sodium Chloride 50 mls @ 100 mls/hr 09/19/16 10:00 09/20/16 10:20 Pepcid 20 Mg Premixed Ivpb - IVPB 100 mls/hr BID SILVER Administration Fentanyl 500 mcg/ Dextrose 100 mls @ 10 mls/hr 09/19/16 01:30 09/20/16 14:02 IVPB 12 mls/hr TITR SILVER Administration 50 MCG/HR Midazolam HCl 100 mg/ Sodium 100 mls @ 1 mls/hr 09/19/16 09:30 09/20/16 11:08 Chloride IVPB 10 mls/hr TITR SILVER Administration Protocol 1 MG/HR Norepinephrine Bitartrate 8, 1,000 mls @ 37.5 mls/hr 09/19/16 11:00 09/20/16 05 :52 000 mcg/ Sodium Chloride IV 5 mcg/min TITR SILVER Titration Protocol 5 MCG/MIN Dextrose/Sodium Chloride 1,000 mls @ 120 mls/hr 09/20/16 06:30 09/20/16 07:22 D5-1/2ns+40 Meq Kcl - IV 120 mls/hr ASDIR SILVER Administration Piperacillin Sod/Tazobactam Sod 50 mls @ 100 mls/hr 09/20/16 09:00 09/20/16 10: 19 Zosyn 3.375gm Ivpb (Pre-Docked) IVPB 100 mls/hr Q8H-IV SILVER Administration Protocol Mupirocin 1 applic 09/18/16 22:00 09/20/16 10:19 Bactroban Ointment (For Decolonization) - NS 09/23/16 21:59 1 applic BID SILVER Administration Potassium Chloride 40 meq 09/19/16 11:00 09/20/16 10:23 Potassium Chloride Oral Liquid PO 40 meq BID SILVER Administration Thiamine HCl 200 mg 09/19/16 10:00 09/20/16 10:23 Vitamin B1 Injection - IVPB 200 mg DAILY SILVER Administration Laboratory Tests 09/18/16 09/18/16 09/19/16 14:20 14:28 06:05 Urine Protein Urine Blood Urine Eosinophils Salicylates < 4.0 Acetaminophen < 2.000 L Alcohol, Quantitative < 5.0 CLARICE M-James VIRGIL Screen c-ANCA Proteinase 3 (PR3) p-ANCA Atypical p-ANCA Myeloperoxidase Ab Double Strand DNA Ab Glomerular Base Memb Ab RPR Titer Nonreactive Hepatitis A Ab Total Hep Bs Antigen Hep Bs Antibody Hep B Core Total Ab Hepatitis C Antibody HIV 1&2 Antibody Screen HIV P24 Antigen 09/19/16 09/19/16 09/19/16 06:05 11:14 19:30 Urine Protein Urine Blood Urine Eosinophils Pending Salicylates Acetaminophen Alcohol, Quantitative CLARICE M-James Pending VIRGIL Screen Pending c-ANCA Pending Proteinase 3 (PR3) Pending p-ANCA Pending Atypical p-ANCA Pending Myeloperoxidase Ab Pending Double Strand DNA Ab Pending Glomerular Base Memb Ab Pending RPR Titer Hepatitis A Ab Total Pending Hep Bs Antigen Pending Hep Bs Antibody Pending Hep B Core Total Ab Pending Hepatitis C Antibody Pending HIV 1&2 Antibody Screen Negative HIV P24 Antigen Negative 09/19/16 19:30 Urine Protein 2+ H Urine Blood 3+ H Urine Eosinophils Salicylates Acetaminophen Alcohol, Quantitative CLARICE M-James VIRGIL Screen c-ANCA Proteinase 3 (PR3) p-ANCA Atypical p-ANCA Myeloperoxidase Ab Double Strand DNA Ab Glomerular Base Memb Ab RPR Titer Hepatitis A Ab Total Hep Bs Antigen Hep Bs Antibody Hep B Core Total Ab Hepatitis C Antibody HIV 1&2 Antibody Screen HIV P24 Antigen Impression 1. SEAN 2. metabolic acidosis 3. gross hematuria 4. DKA 5. sepsis 6. lactic acidosis 7. acute respiratory failure requiring intubation 8. etoh abuse - active 9. 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
[2016-09-20] MEDS ORDERED: SODIUM BICARBONATE IV SCH (15:30)
[2016-09-20] MEDS ORDERED: [UNRECOGNIZED DRUG - OTHER] IV SCH (15:30)
[2016-09-20] MEDS ORDERED: POTASSIUM CHLORIDE IV SCH (15:30)
[2016-09-20] MEDS: KCL 10 MEQ IVPB 100 ML IVPB SCH ×3 (15:50→18:01)
[2016-09-20] MEDS: NOREPINEPHRINE BITARTRATE 8,000 MCG in SODIUM CHLORIDE 0.45% 992 ML IV SCH ×2 (17:13→22:51)
--- NOTE | 2016-09-20 17:53 | PN ---
Physical Exam: SUBJECTIVE: Patient seen and examined at bedside remains intubated and sedated LP done over the weekend remains febrile OBJECTIVE: Vital Signs Period Temp Pulse Resp BP Sys/Gould Pulse Ox Last 24 Hr 99.4 F-100.3 F 92-112 31-36 95-128/56-77 100-100 GENERAL: Intubated sedated. HEAD: Normal with no signs of trauma. EYES: Pupils equal, round and reactive to light, Sclera anicteric, Conjunctiva clear EARS, NOSE, THROAT:Moist mucous membranes. NECK: No JVD . LUNGS: . Bronchial breath sounds otherwise CTAB. No wheezes, and no crackles. Intubated. HEART: RRR S1 S2 no murmurs rubs or gallops ABDOMEN: Soft, nontender, not distended UPPER EXTREMITIES: warm, well-perfused. No peripheral edema. LOWER EXTREMITIES: warm, well-perfused. Trace non pitting edema : arnold in place Laboratory Results - last 24 hr 09/19/16 09/19/16 09/19/16 18:13 19:04 19:30 WBC RBC Hgb Hct MCV MCHC RDW Plt Count MPV Neutrophils % Lymphocytes % Monocytes % Eosinophils % Basophils % Puncture Site ABG pH ABG pCO2 at Pt Temp ABG pO2 at Pt Temp ABG HCO3 ABG O2 Sat (Measured) ABG O2 Content ABG Base Excess Dennis Test O2 Delivery Device Oxygen Flow Rate Vent Mode Vent Rate Mechanical Rate PEEP Pressure Support Vent Sodium Potassium Chloride Carbon Dioxide Anion Gap BUN Creatinine Creat Clearance w eGFR POC Glucometer 98.36644 182.49945 Random Glucose Calcium Phosphorus Magnesium Total Bilirubin AST ALT Alkaline Phosphatase Total Protein Albumin Total Amylase Lipase Urine Color Ltyellow Urine Appearance Clear Urine pH 5.0 Ur Specific [place] 1.015 Urine Protein 2+ H Urine Glucose (UA) 3+ H Urine Ketones 1+ H Urine Blood 3+ H Urine Nitrite Negative Urine Bilirubin Negative Urine Urobilinogen Negative Ur Leukocyte Esterase Negative Urine RBC 18 Urine WBC 5 Ur Epithelial Cells Rare Urine Bacteria Rare Urine Mucus Rare 09/19/16 09/19/16 09/20/16 19:30 22:30 00:15 WBC RBC Hgb Hct MCV MCHC RDW Plt Count MPV Neutrophils % Lymphocytes % Monocytes % Eosinophils % Basophils % Puncture Site ABG pH ABG pCO2 at Pt Temp ABG pO2 at Pt Temp ABG HCO3 ABG O2 Sat (Measured) ABG O2 Content ABG Base Excess Dennis Test O2 Delivery Device Oxygen Flow Rate Vent Mode Vent Rate Mechanical Rate PEEP Pressure Support Vent Sodium 151 H 154 H Potassium 4.3 4.6 Chloride 124 H 129 H Carbon Dioxide 12 L 14 L Anion Gap 15 11 BUN 24 H 26 H Creatinine 2.2 H 2.3 H Creat Clearance w eGFR POC Glucometer Random Glucose 460 H* 460 H* 318 H* D Calcium 7.4 L 7.2 L Phosphorus 1.8 L D 2.8 D Magnesium 2.4 2.2 Total Bilirubin AST ALT Alkaline Phosphatase Total Protein Albumin Total Amylase Lipase Urine Color Urine Appearance Urine pH Ur Specific [place] Urine Protein Urine Glucose (UA) Urine Ketones Urine Blood Urine Nitrite Urine Bilirubin Urine Urobilinogen Ur Leukocyte Esterase Urine RBC Urine WBC Ur Epithelial Cells Urine Bacteria Urine Mucus 09/20/16 09/20/16 09/20/16 01:22 02:20 03:01 WBC RBC Hgb Hct MCV MCHC RDW Plt Count MPV Neutrophils % Lymphocytes % Monocytes % Eosinophils % Basophils % Puncture Site ABG pH ABG pCO2 at Pt Temp ABG pO2 at Pt Temp ABG HCO3 ABG O2 Sat (Measured) ABG O2 Content ABG Base Excess Dennis Test O2 Delivery Device Oxygen Flow Rate Vent Mode Vent Rate Mechanical Rate PEEP Pressure Support Vent Sodium Potassium Chloride Carbon Dioxide Anion Gap BUN Creatinine Creat Clearance w eGFR POC Glucometer 386.50732 357.24715 314.56157 Random Glucose Calcium Phosphorus Magnesium Total Bilirubin AST ALT Alkaline Phosphatase Total Protein Albumin Total Amylase Lipase Urine Color Urine Appearance Urine pH Ur Specific [place] Urine Protein Urine Glucose (UA) Urine Ketones Urine Blood Urine Nitrite Urine Bilirubin Urine Urobilinogen Ur Leukocyte Esterase Urine RBC Urine WBC Ur Epithelial Cells Urine Bacteria Urine Mucus 09/20/16 09/20/16 09/20/16 04:05 05:05 05:40 WBC 9.3 RBC 3.25 L Hgb 10.3 L Hct 28.4 L MCV 87.3 MCHC 36.4 H RDW 14.2 Plt Count 120 L MPV 11.2 H Neutrophils % 82.9 H Lymphocytes % 10.4 D Monocytes % 6.0 Eosinophils % 0.3 D Basophils % 0.4 Puncture Site ABG pH ABG pCO2 at Pt Temp ABG pO2 at Pt Temp ABG HCO3 ABG O2 Sat (Measured) ABG O2 Content ABG Base Excess Dennis Test O2 Delivery Device Oxygen Flow Rate Vent Mode Vent Rate Mechanical Rate PEEP Pressure Support Vent Sodium Potassium Chloride Carbon Dioxide Anion Gap BUN Creatinine Creat Clearance w eGFR POC Glucometer 249.60603 204.75671 Random Glucose Calcium Phosphorus Magnesium Total Bilirubin AST ALT Alkaline Phosphatase Total Protein Albumin Total Amylase Lipase Urine Color Urine Appearance Urine pH Ur Specific [place] Urine Protein Urine Glucose (UA) Urine Ketones Urine Blood Urine Nitrite Urine Bilirubin Urine Urobilinogen Ur Leukocyte Esterase Urine RBC Urine WBC Ur Epithelial Cells Urine Bacteria Urine Mucus 09/20/16 09/20/16 09/20/16 05:40 05:40 05:40 WBC RBC Hgb Hct MCV MCHC RDW Plt Count MPV Neutrophils % Lymphocytes % Monocytes % Eosinophils % Basophils % Puncture Site ABG pH ABG pCO2 at Pt Temp ABG pO2 at Pt Temp ABG HCO3 ABG O2 Sat (Measured) ABG O2 Content ABG Base Excess Dennis Test O2 Delivery Device Oxygen Flow Rate Vent Mode Vent Rate Mechanical Rate PEEP Pressure Support Vent Sodium 156 H Potassium 3.8 Chloride 130 H Carbon Dioxide 14 L Anion Gap 12 BUN 25 H Creatinine 2.1 H Creat Clearance w eGFR 39.00 POC Glucometer Random Glucose 136 H D Calcium 7.2 L Phosphorus 2.4 L Magnesium 2.1 Total Bilirubin 0.4 AST 53 H D ALT 76 Alkaline Phosphatase 106 Total Protein 4.4 L Albumin 1.9 L Total Amylase 98 D Lipase 262 Urine Color Urine Appearance Urine pH Ur Specific [place] Urine Protein Urine Glucose (UA) Urine Ketones Urine Blood Urine Nitrite Urine Bilirubin Urine Urobilinogen Ur Leukocyte Esterase Urine RBC Urine WBC Ur Epithelial Cells Urine Bacteria Urine Mucus 09/20/16 09/20/16 09/20/16 05:48 07:20 07:35 WBC RBC Hgb Hct MCV MCHC RDW Plt Count MPV Neutrophils % Lymphocytes % Monocytes % Eosinophils % Basophils % Puncture Site Right radial ABG pH 7.26 L ABG pCO2 at Pt Temp 29.4 L D ABG pO2 at Pt Temp 127.0 H D ABG HCO3 12.4 L* ABG O2 Sat (Measured) 97.7 ABG O2 Content 15.4 ABG Base Excess -12.8 L* Dennis Test Positive O2 Delivery Device Mech vent Oxygen Flow Rate 40 Vent Mode Ac Vent Rate 35 Mechanical Rate Yes PEEP 5.0 Pressure Support Vent 450 Sodium Potassium Chloride Carbon Dioxide Anion Gap BUN Creatinine Creat Clearance w eGFR POC Glucometer 165.18741 204.11873 Random Glucose Calcium Phosphorus Magnesium Total Bilirubin AST ALT Alkaline Phosphatase Total Protein Albumin Total Amylase Lipase Urine Color Urine Appearance Urine pH Ur Specific [place] Urine Protein Urine Glucose (UA) Urine Ketones Urine Blood Urine Nitrite Urine Bilirubin Urine Urobilinogen Ur Leukocyte Esterase Urine RBC Urine WBC Ur Epithelial Cells Urine Bacteria Urine Mucus 09/20/16 09/20/16 09/20/16 08:10 08:24 10:07 WBC RBC Hgb Hct MCV MCHC RDW Plt Count MPV Neutrophils % Lymphocytes % Monocytes % Eosinophils % Basophils % Puncture Site ABG pH ABG pCO2 at Pt Temp ABG pO2 at Pt Temp ABG HCO3 ABG O2 Sat (Measured) ABG O2 Content ABG Base Excess Dennis Test O2 Delivery Device Oxygen Flow Rate Vent Mode Vent Rate Mechanical Rate PEEP Pressure Support Vent Sodium 154 H Potassium 3.9 Chloride 130 H Carbon Dioxide 16 L Anion Gap 8 BUN 25 H Creatinine 2.1 H Creat Clearance w eGFR POC Glucometer 240.95304 272.51195 Random Glucose 196 H D Calcium 7.0 L Phosphorus 2.8 Magnesium 1.9 Total Bilirubin AST ALT Alkaline Phosphatase Total Protein Albumin Total Amylase Lipase Urine Color Urine Appearance Urine pH Ur Specific [place] Urine Protein Urine Glucose (UA) Urine Ketones Urine Blood Urine Nitrite Urine Bilirubin Urine Urobilinogen Ur Leukocyte Esterase Urine RBC Urine WBC Ur Epithelial Cells Urine Bacteria Urine Mucus 09/20/16 09/20/16 09/20/16 11:58 13:00 13:24 WBC RBC Hgb Hct MCV MCHC RDW Plt Count MPV Neutrophils % Lymphocytes % Monocytes % Eosinophils % Basophils % Puncture Site ABG pH ABG pCO2 at Pt Temp ABG pO2 at Pt Temp ABG HCO3 ABG O2 Sat (Measured) ABG O2 Content ABG Base Excess Dennis Test O2 Delivery Device Oxygen Flow Rate Vent Mode Vent Rate Mechanical Rate PEEP Pressure Support Vent Sodium 154 H Potassium 3.6 Chloride 129 H Carbon Dioxide 13 L Anion Gap 12 BUN 26 H Creatinine 2.1 H Creat Clearance w eGFR POC Glucometer 340.65207 374.03972 Random Glucose 271 H D Calcium 7.0 L Phosphorus 3.0 Magnesium 2.0 Total Bilirubin AST ALT Alkaline Phosphatase Total Protein Albumin Total Amylase Lipase Urine Color Urine Appearance Urine pH Ur Specific [place] Urine Protein Urine Glucose (UA) Urine Ketones Urine Blood Urine Nitrite Urine Bilirubin Urine Urobilinogen Ur Leukocyte Esterase Urine RBC Urine WBC Ur Epithelial Cells Urine Bacteria Urine Mucus 09/20/16 14:26 WBC RBC Hgb Hct MCV MCHC RDW Plt Count MPV Neutrophils % Lymphocytes % Monocytes % Eosinophils % Basophils % Puncture Site ABG pH ABG pCO2 at Pt Temp ABG pO2 at Pt Temp ABG HCO3 ABG O2 Sat (Measured) ABG O2 Content ABG Base Excess Dennis Test O2 Delivery Device Oxygen Flow Rate Vent Mode Vent Rate Mechanical Rate PEEP Pressure Support Vent Sodium Potassium Chloride Carbon Dioxide Anion Gap BUN Creatinine Creat Clearance w eGFR POC Glucometer > 400 Random Glucose Calcium Phosphorus Magnesium Total Bilirubin AST ALT Alkaline Phosphatase Total Protein Albumin Total Amylase Lipase Urine Color Urine Appearance Urine pH Ur Specific [place] Urine Protein Urine Glucose (UA) Urine Ketones Urine Blood Urine Nitrite Urine Bilirubin Urine Urobilinogen Ur Leukocyte Esterase Urine RBC Urine WBC Ur Epithelial Cells Urine Bacteria Urine Mucus Active Medications Generic Name Dose Route Start Last Admin Trade Name Freq PRN Reason Stop Dose Admin Acetaminophen 1,000 mg 09/20/16 08:10 09/20/16 10:00 Ofirmev Injection - IVPB 09/21/16 02:11 1,000 mg Q6H PRN Administration FEVER OR PAIN Chlorhexidine Gluconate 1 applic 09/18/16 22:00 09/19/16 22:15 Hibiclens For Decolonization - TP 1 applic HS SILVER Administration Heparin Sodium (Porcine) 5,000 unit 09/19/16 06:00 09/20/16 14:00 Heparin - SQ 5,000 unit TID SILVER Administration IV Flush 4 ml 09/18/16 20:31 Triple Lumen Flush IVPUSH PRN PRN Protocol Insulin Human Regular 100 100 mls @ 7 mls/hr 09/18/16 15:30 09/20/16 07:22 units/ Sodium Chloride IVPB 4 units/hr TITR SILVER Titration Protocol 7 UNITS/HR Propofol 100 mls @ 2.722 mls/hr 09/18/16 15:00 09/20/16 05:53 Diprivan - IVPB 60 mcg/kg/min TITR SILVER Titration Protocol 5 MCG/KG/MIN Famotidine/Sodium Chloride 50 mls @ 100 mls/hr 09/19/16 10:00 09/20/16 10:20 Pepcid 20 Mg Premixed Ivpb - IVPB 100 mls/hr BID SILVER Administration Fentanyl 500 mcg/ Dextrose 100 mls @ 10 mls/hr 09/19/16 01:30 09/20/16 14:02 IVPB 12 mls/hr TITR SILVER Administration 50 MCG/HR Midazolam HCl 100 mg/ Sodium 100 mls @ 1 mls/hr 09/19/16 09:30 09/20/16 11:08 Chloride IVPB 10 mls/hr TITR SILVER Administration Protocol 1 MG/HR Norepinephrine Bitartrate 8, 1,000 mls @ 37.5 mls/hr 09/19/16 11:00 09/20/16 17 :13 000 mcg/ Sodium Chloride IV 22.5 mls/hr TITR SILVER Administration Protocol 5 MCG/MIN Piperacillin Sod/Tazobactam Sod 50 mls @ 100 mls/hr 09/20/16 09:00 09/20/16 10: 19 Zosyn 3.375gm Ivpb (Pre-Docked) IVPB 100 mls/hr Q8H-IV SILVER Administration Protocol Sodium Bicarbonate 75 meq/ 1,095 mls @ 100 mls/hr 09/20/16 15:30 Potassium Chloride 40 meq/ IV Dextrose Q11H SILVER Potassium Chloride 100 mls @ 100 mls/hr 09/20/16 15:30 Potassium Chloride 10 Meq Premix Ivpb - IVPB 09/20/16 18:29 Q60M SILVER Mupirocin 1 applic 09/18/16 22:00 09/20/16 10:19 Bactroban Ointment (For Decolonization) - NS 09/23/16 21:59 1 applic BID SILVER Administration Potassium Chloride 40 meq 09/19/16 11:00 09/20/16 10:23 Potassium Chloride Oral Liquid PO 40 meq BID SILVER Administration Thiamine HCl 200 mg 09/19/16 10:00 09/20/16 10:23 Vitamin B1 Injection - IVPB 200 mg DAILY SILVER Administration ASSESSMENT/PLAN: 25M found down with no PMH of DM presents to the ED unresponsive in DKA and severe sepsis. Diabetic ketoacidosis: patient has likely been a diabetic for a long time and has been undiagnosed and this is his initial presentation of DKA from untreated type 1 DM Change bicarb gtt to bicarb ampule q12h run over [address] Espinoza from nephrology if blood glucose drops to below 250 restart dextrose containing fluids change dextrose containing fluids1/2 normal saline as patient's blood glucose is >400 Endocrinology consult appreciated recommendations noted-insulin gtt per endocrinology orders Insulin gtt BMP q4h replete potassium aggressively PRN will need outpatient follow up with ophthalmology and podiatry HbA1C 12.9 Severe Sepsis: tachycardic hypothermicon presentation now febrile leukocytosis on presentation now resolved with acute kidney injury lactic acidosis and hypotension patient now meets criteria for septic shock as he has had adequate fluid resuscitation and is still hypotensive requiring pressors (levophed) for pressure support source of infection unknown BCx no growth so far UCx-no growth final ID consult appreciated rocephin changed to zosyn as patient remains febrile f/u CSF cultures and CSF studies Acute respiratory failure: from DKA intubated ventilatory support ABG improved from admission lactic acidosis: resolved from dehydration and volume depletion from third spacing of fluids trend lactic acid aggressive IVF for hydration Metabolic acidosis: from diabetic ketoacidosis Bicarb ampule q12h run over [address] Espinoza from nephrology Acute renal failure/Acute kidney injury: Nephrology consult appreciated Cr 2.1 renal work up in process aggressive IVF for hydration Trend Cr avoid nephrotoxic drugs Transaminitis/questionable history of Liver disease: Improving transaminitis likely from shock liver from hypoperfusion vs alcoholic liver disease Liver US showed fatty liver likely from alcoholism Aggressive IVF hydration and volume repletion will need more history from the patient when he is stable alert and awake GI consult for hepatology evaluation Hematuria: from traumatic arnold insertion resolved Hyponatremia: was pseudohyponatremia from hyperglycemia as corrected sodium was normal now patient is hypernatremic from massive amounts of normal saline hypernatrmia: free water through NGT 250ml/hr q6h per Dr. Espinoza 1/2 NS @ 75ml/hr Asthma: intubated at this time will address this if it is active once stable FEN: 1/2 NS @ 75ml/hr/free water through NGT replete potassium for hypokalemia while on insulin gtt keep K+>4.0. hypernatremia se above for plan NPO PPx: HSQ/SCDs Protonix No PT consult at this time CCT 45 minutes ICU care Guarded prognosis Visit type - Emergency Visit Emergency Visit: Yes ED Registration Date: 09/18/16 Care time: The patient presented to the Emergency Department on the above date and was hospitalized for further evaluation of their emergent condition. - New Patient This patient is new to me today: No - Critical Care Critical Care patient: Yes Total Critical Care Time (in minutes): 45 Critical Care Statement: The care of this patient involved high complexity decision making to prevent further life threatening deterioration of the patient 's condition and/or to evalute & treat vital organ system(s) failure or risk of failure.
[2016-09-20] MEDS: INSULIN REGULAR 100 UNITS in SODIUM CHLORIDE 99 ML IVPB SCH (18:01)
[2016-09-20] MEDS ORDERED: SODIUM CHLORIDE 0.45% 1,000 ML IV SCH (18:30)
[2016-09-20] MEDS ORDERED: SODIUM BICARBONATE 8.4% 50 MEQ/50 ML VIAL IV SCH (18:30)
[2016-09-20] MEDS: SODIUM BICARBONATE 8.4% 50 MEQ/50 ML VIAL IV SCH (19:34)
[2016-09-20] MEDS ORDERED: HEMOQUE TEST 1 EACH EACH ONE (19:40)
[2016-09-20 20:42] LABS: COCKROFT - GAULT 69.38; CREATININE 2.3 mg/dL (0.7-1.3); PHOSPHOROUS 3.3 mg/dL (2.5-4.9)
[2016-09-20 20:45] LABS: MAGNESIUM 1.9 mg/dL (1.8-2.4)
--- NOTE | 2016-09-20 21:18 | PN ---
Teaching Attending Note Name of Resident: Danny Shine ATTENDING PHYSICIAN STATEMENT I saw and evaluated the patient. I reviewed the resident's note and discussed the case with the resident. I agree with the resident's findings and plan as documented. Patient continues to be in ICU, intubated, sedated, on pressors. OBJECTIVE: Vital Signs Temperature 101 F H 09/20/16 18:00 Pulse Rate 111 H 09/20/16 18:00 Respiratory Rate 35 H 09/20/16 19:16 Blood Pressure 113/63 09/20/16 18:00 O2 Sat by Pulse Oximetry (%) 100 09/20/16 09:00 CBCD WBC 9.3 K/mm3 (4.0-10.0) 09/20/16 05:40 RBC 3.25 M/mm3 (4.00-5.60) L 09/20/16 05:40 Hgb 10.3 GM/dL (11.7-16.9) L 09/20/16 05:40 Hct 28.4 % (35.4-49) L 09/20/16 05:40 MCV 87.3 fl (80-96) 09/20/16 05:40 MCHC 36.4 g/dl (32.0-35.9) H 09/20/16 05:40 RDW 14.2 % (11.9-15.9) 09/20/16 05:40 Plt Count 120 K/MM3 (134-434) L 09/20/16 05:40 MPV 11.2 fl (7.5-11.1) H 09/20/16 05:40 CMP Sodium 149 mmol/L (136-145) H 09/20/16 19:40 Potassium 5.7 mmol/L (3.5-5.1) H D 09/20/16 19:40 Chloride 125 mmol/L (98-107) H 09/20/16 19:40 Carbon Dioxide 11 mmol/L (21-32) L 09/20/16 19:40 Anion Gap 13 (8-16) 09/20/16 19:40 BUN 29 mg/dL (7-18) H 09/20/16 19:40 Creatinine 2.3 mg/dL (0.7-1.3) H 09/20/16 19:40 Creat Clearance w eGFR 39.00 (>60) 09/20/16 05:40 Random Glucose 446 mg/dL (74-106) H* D 09/20/16 19:40 Calcium 7.0 mg/dL (8.5-10.1) L 09/20/16 19:40 Total Bilirubin 0.4 mg/dL (0.2-1.0) 09/20/16 05:40 AST 53 U/L (15-37) H D 09/20/16 05:40 ALT 76 U/L (12-78) 09/20/16 05:40 Alkaline Phosphatase 106 U/L (45-117) 09/20/16 05:40 Total Protein 4.4 g/dl (6.4-8.2) L 09/20/16 05:40 Albumin 1.9 g/dl (3.4-5.0) L 09/20/16 05:40 CARDIAC ENZYMES Creatine Kinase 72 IU/L (39-308) 09/18/16 23:30 Troponin I 0.04 ng/ml (0.00-0.05) D 09/18/16 23:30 Current Medications Generic Name Dose Route Start Last Admin Trade Name Freq PRN Reason Stop Dose Admin Acetaminophen 1,000 mg 09/20/16 08:10 09/20/16 17:57 Ofirmev Injection - IVPB 09/21/16 02:11 1,000 mg Q6H PRN Administration FEVER OR PAIN Chlorhexidine Gluconate 1 applic 09/18/16 22:00 09/19/16 22:15 Hibiclens For Decolonization - TP 1 applic HS SILVER Administration Heparin Sodium (Porcine) 5,000 unit 09/19/16 06:00 09/20/16 14:00 Heparin - SQ 5,000 unit TID SILVER Administration IV Flush 4 ml 09/18/16 20:31 Triple Lumen Flush IVPUSH PRN PRN Protocol Insulin Human Regular 100 100 mls @ 7 mls/hr 09/18/16 15:30 09/20/16 18:01 units/ Sodium Chloride IVPB Not Given TITR SILVER Protocol 7 UNITS/HR Propofol 100 mls @ 2.722 mls/hr 09/18/16 15:00 09/20/16 18:11 Diprivan - IVPB 32.658 mls/hr TITR SILVER Administration Protocol 5 MCG/KG/MIN Famotidine/Sodium Chloride 50 mls @ 100 mls/hr 09/19/16 10:00 09/20/16 10:20 Pepcid 20 Mg Premixed Ivpb - IVPB 100 mls/hr BID SILVER Administration Fentanyl 500 mcg/ Dextrose 100 mls @ 10 mls/hr 09/19/16 01:30 09/20/16 18:16 IVPB 30 mls/hr TITR SILVER Administration 50 MCG/HR Midazolam HCl 100 mg/ Sodium 100 mls @ 1 mls/hr 09/19/16 09:30 09/20/16 11:08 Chloride IVPB 10 mls/hr TITR SILVER Administration Protocol 1 MG/HR Norepinephrine Bitartrate 8, 1,000 mls @ 37.5 mls/hr 09/19/16 11:00 09/20/16 17 :13 000 mcg/ Sodium Chloride IV 22.5 mls/hr TITR SILVER Administration Protocol 5 MCG/MIN Piperacillin Sod/Tazobactam Sod 50 mls @ 100 mls/hr 09/20/16 09:00 09/20/16 18: 10 Zosyn 3.375gm Ivpb (Pre-Docked) IVPB 100 mls/hr Q8H-IV SILVER Administration Protocol Sodium Chloride 1,000 mls @ 75 mls/hr 09/20/16 18:30 09/20/16 19:03 1/2 Normal Saline IV 75 mls/hr ASDIR SILVER Administration Mupirocin 1 applic 09/18/16 22:00 09/20/16 10:19 Bactroban Ointment (For Decolonization) - NS 09/23/16 21:59 1 applic BID SILVER Administration Potassium Chloride 40 meq 09/19/16 11:00 09/20/16 10:23 Potassium Chloride Oral Liquid PO 40 meq BID SILVER Administration Sodium Bicarbonate 50 meq 09/20/16 18:30 09/20/16 19:34 Sodium Bicarbonate 8.4% - IV 50 meq Q12H SILVER Administration Thiamine HCl 200 mg 09/19/16 10:00 09/20/16 10:23 Vitamin B1 Injection - IVPB 200 mg DAILY SILVER Administration Home Medications Medication Instructions Recorded NK [No Known Home Medication] 09/18/16 Microbiology 09/19/16 13:05 Blood - Central Line Blood Culture - Preliminary NO GROWTH OBTAINED AFTER 48 HOURS, INCUBATION TO CONTINUE FOR 3 DAYS. 09/19/16 11:22 Blood - Central Line Blood Culture - Preliminary NO GROWTH OBTAINED AFTER 48 HOURS, INCUBATION TO CONTINUE FOR 3 DAYS. 09/18/16 14:00 Blood - Peripheral Venous Blood Culture - Preliminary NO GROWTH OBTAINED AFTER 72 HOURS, INCUBATION TO CONTINUE FOR 2 DAYS. 09/18/16 14:00 Blood - Peripheral Venous Blood Culture - Preliminary NO GROWTH OBTAINED AFTER 72 HOURS, INCUBATION TO CONTINUE FOR 2 DAYS. 09/18/16 22:00 Cerebral Spinal Fluid - Lumbar Puncture Gram Stain - Final 09/18/16 22:00 Cerebral Spinal Fluid - Lumbar Puncture CSF Culture - Final NO GROWTH AFTER 48 HOURS INCUBATION 09/18/16 14:20 Urine - Urine - Catheterized Urine Culture - Final NO GROWTH OBTAINED 09/18/16 22:00 Cerebral Spinal Fluid - Lumbar Puncture Gram Stain - Final ASSESSMENT AND PLAN: Patient is a 25M with PMHx of Asthma, cocaine use, etoh abuse , liver disease as per uncle, presents to the ED in DKA # Acute respiratory Failure intubated sedated in ICU continue sedation Propofol and Midazolam IV , further management per iCU team # SEvere septis (Acute hypothermia, leukocytosis) on IVF, IV antibiotic Rocephin changed to a broad spectrum ABX Zosyn as per ID, s/p LP looks like traumatic infection. blood culture, ua, urine culture is ordered , s/p one dose of Vancomycin 1500mg, and on Rocephin 2gm IV daily. ID on the case # Acute DKA ;with Hemoglobin A1c 12 , on the case managing DKA with electrolyte adjustments as per as well . # Acute renal failure IVF repeat cmp every 4 hrs ; Nephrology consult appreciated Cr 2.1 renal work up in process # Acute transaminitis/questionable history of Liver disease: likely from shock liver from hypoperfusion vs alcoholic liver disease Liver US showed fatty liver likely from alcoholism ;Aggressive IVF hydration and volume repletion; GI consult for hepatology evaluation # Hx of EToh and cocaine , with normal CPK . On folic acid/thiamine continue # Ingestion of multiple Herbal supplements ( unknown amounts and unknown reason ) #Hematuria: from traumatic arnold insertion resolved # Acute Hypernatremia ; nephrology is on the case. 1/2NS at 75cc/hr #Hx of Asthma: intubated at this time HIV test ordered as per iD DVT Px: Heparin sq
[2016-09-20] MEDS: CHLORHEXIDINE GLUCONATE 4% CLEANSER FOR DECOLONIZATION TP SCH (22:08)
[2016-09-21 00:01] LABS: COCKROFT - GAULT 66.49; CREATININE 2.4 mg/dL (0.7-1.3); MAGNESIUM 1.9 mg/dL (1.8-2.4); PHOSPHOROUS 3.1 mg/dL (2.5-4.9)
[2016-09-21] MEDS: PIPERACILLIN/TAZOB 3.375 GM 50 ML IVPB SCH ×3 (01:37→17:42)
[2016-09-21] MEDS: FENTANYL INJECTION 500 MCG in DEXTROSE 5%-WATER - 90 ML IVPB SCH ×5 (02:02→18:21)
[2016-09-21] MEDS ORDERED: INSULIN REGULAR HUMAN 100 UNITS/ML *VIAL ONE (02:20)
[2016-09-21] MEDS: PROPOFOL 100 ML IVPB SCH ×4 (03:00→18:21)
[2016-09-21 04:27] LABS: BASOPHIL 0.5 % (0-2.0); EOSINOPHIL 0.9 % (0-4.5); MCH 31.9 pg (25.7-33.7); MCHC 35.6 g/dl (32.0-35.9); MEAN CELL VOLUME 89.5 fl (80-96); MEAN PLT VOLUME 11.2 fl (7.5-11.1); NEUTROPHILS 79.9 % (42.8-82.8); PLATELET COUNT 90 K/MM3 (134-434); RDW 14.6 % (11.9-15.9)
[2016-09-21 04:40] LABS: INR 1.12 (0.82-1.09); PROTHROMBIN TIME (PATIENT) 12.4 SEC (9.98-11.88)
[2016-09-21 04:43] LABS: ACTIVATED PTT 49.3 SECONDS (26.9-34.4)
[2016-09-21 04:49] LABS: ALBUMIN 1.6 g/dl (3.4-5.0); BILIRUBIN,TOTAL 0.6 mg/dL (0.2-1.0); COCKROFT - GAULT 61.37; CREATININE 2.6 mg/dL (0.7-1.3); MAGNESIUM 1.9 mg/dL (1.8-2.4); PHOSPHOROUS 2.5 mg/dL (2.5-4.9)
[2016-09-21 04:56] LABS: TOT PROT 4.1 g/dl (6.4-8.2)
[2016-09-21] MEDS: SODIUM BICARBONATE 8.4% 50 MEQ/50 ML VIAL IV SCH (06:39)
[2016-09-21] MEDS: HEPARIN NA (PORCINE) 5,000 UNITS/ML 1ML VIAL SQ SCH (06:39)
[2016-09-21] MEDS: MIDAZOLAM 100 MG in SODIUM CHLORIDE 100 ML IVPB SCH ×2 (06:40→17:42)
--- NOTE | 2016-09-21 07:33 | PN ---
Progress Note, Physician Chief Complaint: Remains on vent pressor dependent unresponsive When sedation lifted he becomes agitated ? seizures Apparently recently returns from [place] perhaps down after change to Zosyn ( to be seen) - Current Medication List Current Medications: Active Medications Chlorhexidine Gluconate (Hibiclens For Decolonization -) 1 applic TP HS SILVER Last Admin: 09/20/16 22:08 Dose: 1 applic Heparin Sodium (Porcine) (Heparin -) 5,000 unit SQ TID SILVER Last Admin: 09/21/16 06:39 Dose: 5,000 unit IV Flush (Triple Lumen Flush) 4 ml IVPUSH PRN PRN PRN Reason: Protocol Insulin Human Regular 100 (units/ Sodium Chloride) 100 mls @ 7 mls/hr IVPB TITR SILVER; 7 UNITS/HR PRN Reason: Protocol Last Titration: 09/20/16 21:00 Dose: 12 units/hr Propofol (Diprivan -) 100 mls @ 2.722 mls/hr IVPB TITR SILVER; 5 MCG/KG/MIN PRN Reason: Protocol Last Titration: 09/21/16 06:44 Dose: 60 mcg/kg/min Famotidine/Sodium Chloride (Pepcid 20 Mg Premixed Ivpb -) 50 mls @ 100 mls/hr IVPB BID SILVER Last Admin: 09/20/16 22:07 Dose: 100 mls/hr Fentanyl 500 mcg/ Dextrose 100 mls @ 10 mls/hr IVPB TITR SILVER PRN Reason: 50 MCG/HR Last Admin: 09/21/16 05:30 Dose: 30 mls/hr Midazolam HCl 100 mg/ Sodium (Chloride) 100 mls @ 1 mls/hr IVPB TITR SILVER; 1 MG/ HR PRN Reason: Protocol Last Admin: 09/21/16 06:40 Dose: 10 mls/hr Norepinephrine Bitartrate 8, (000 mcg/ Sodium Chloride) 1,000 mls @ 37.5 mls/ hr IV TITR SILVER; 5 MCG/MIN PRN Reason: Protocol Last Titration: 09/21/16 03:00 Dose: 4 mcg/min Piperacillin Sod/Tazobactam Sod (Zosyn 3.375gm Ivpb (Pre-Docked)) 50 mls @ 100 mls/hr IVPB Q8H-IV SILVER PRN Reason: Protocol Last Admin: 09/21/16 01:37 Dose: 100 mls/hr Sodium Chloride (1/2 Normal Saline) 1,000 mls @ 75 mls/hr IV ASDIR [facility] Last Admin: 09/20/16 19:03 Dose: 75 mls/hr Mupirocin (Bactroban Ointment (For Decolonization) -) 1 applic NS BID [facility] Stop: 09/23/16 21:59 Last Admin: 09/20/16 22:07 Dose: 1 applic Potassium Chloride (Potassium Chloride Oral Liquid) 40 meq PO BID [facility] Last Admin: 09/20/16 22:10 Dose: 40 meq Sodium Bicarbonate (Sodium Bicarbonate 8.4% -) 50 meq IV Q12H [facility] Last Admin: 09/21/16 06:39 Dose: 50 meq Thiamine HCl (Vitamin B1 Injection -) 200 mg IVPB DAILY [facility] Last Admin: 09/20/16 10:23 Dose: 200 mg - Objective Vital Signs: Vital Signs Temperature 99.9 F H 09/21/16 07:00 Pulse Rate 91 H 09/21/16 07:00 Respiratory Rate 35 H 09/21/16 07:00 Blood Pressure 101/56 09/21/16 07:00 O2 Sat by Pulse Oximetry (%) 100 09/21/16 00:28 Constitutional: Yes: Well Nourished, Other (UNresponsive) Cardiovascular: Yes: S1, S2 Gastrointestinal: Yes: Soft. No: Ascites, Tenderness, Epigastrium, Tenderness, Rebound Genitourinary: Yes: Other (Scrotal excoriations with crusting but no edema tenderness swelling) Extremities: Yes: Other (Echymosis of the right forearm) Labs: CBC, BMP 09/21/16 04:20 09/21/16 04:20 INR, PTT INR 1.12 (0.82-1.09) 09/21/16 04:20 Fibrinogen < 100.0 mg/dL (238-498) L* 09/18/16 18:00 Problem List - Problems (1) Acute renal insufficiency Code(s): N28.9 - DISORDER OF KIDNEY AND URETER, UNSPECIFIED (2) Altered mental status Code(s): R41.82 - ALTERED MENTAL STATUS, UNSPECIFIED Qualifiers: Altered mental status type: stupor Qualified Code(s): R40.1 - Stupor (3) DKA (diabetic ketoacidosis) Code(s): E13.10 - OTH DIABETES MELLITUS WITH KETOACIDOSIS WITHOUT COMA Qualifiers: Diabetes mellitus type: type 1 Diabetes mellitus complication detail: with coma Qualified Code(s): E10.11 - Type 1 diabetes mellitus with ketoacidosis with coma (4) Lactic acidosis Code(s): E87.2 - ACIDOSIS (5) Sepsis Code(s): A41.9 - SEPSIS, UNSPECIFIED ORGANISM Assessment/Plan Microbiology 09/18/16 22:00 Cerebral Spinal Fluid - Lumbar Puncture Gram Stain - Final 09/18/16 22:00 Cerebral Spinal Fluid - Lumbar Puncture Gram Stain - Final 09/19/16 13:05 Blood - Central Line Blood Culture - Preliminary NO GROWTH OBTAINED AFTER 24 HOURS, INCUBATION TO CONTINUE FOR 4 DAYS. 09/19/16 11:22 Blood - Central Line Blood Culture - Preliminary NO GROWTH OBTAINED AFTER 24 HOURS, INCUBATION TO CONTINUE FOR 4 DAYS. 09/18/16 22:00 Cerebral Spinal Fluid - Lumbar Puncture CSF Culture - Preliminary NO GROWTH OBTAINED AFTER 24 HOURS INCUBATION, REINCUBATED. Laboratory Tests 09/19/16 09/19/16 09/19/16 06:05 11:14 19:30 WBC Hgb Hct Plt Count Neutrophils % Lymphocytes % Monocytes % Basophils % INR ABG pO2 at Pt Temp Oxygen Flow Rate BUN Creatinine Random Glucose Total Bilirubin AST ALT Alkaline Phosphatase Total Protein Albumin VIRGIL Screen Pending c-ANCA Pending Double Strand DNA Ab Pending Glomerular Base Memb Ab Pending RPR Titer Nonreactive HIV 1&2 Antibody Screen Negative HIV P24 Antigen Negative 09/20/16 09/21/16 09/21/16 07:35 04:20 04:20 WBC 6.0 D Hgb 9.3 L Hct 26.2 L Plt Count 90 L D Neutrophils % 79.9 Lymphocytes % 16.4 D Monocytes % 2.3 L Basophils % 0.5 INR ABG pO2 at Pt Temp 127.0 H D Oxygen Flow Rate 40 BUN 31 H Creatinine 2.6 H Random Glucose 307 H* D Total Bilirubin 0.6 D AST 389 H D ALT 165 H D Alkaline Phosphatase 175 H D Total Protein 4.1 L Albumin 1.6 L VIRGIL Screen c-ANCA Double Strand DNA Ab Glomerular Base Memb Ab RPR Titer HIV 1&2 Antibody Screen HIV P24 Antigen 09/21/16 04:20 WBC Hgb Hct Plt Count Neutrophils % Lymphocytes % Monocytes % Basophils % INR 1.12 ABG pO2 at Pt Temp Oxygen Flow Rate BUN Creatinine Random Glucose Total Bilirubin AST ALT Alkaline Phosphatase Total Protein Albumin VIRGIL Screen c-ANCA Double Strand DNA Ab Glomerular Base Memb Ab RPR Titer HIV 1&2 Antibody Screen HIV P24 Antigen Assessment Multiorgan failure DKA Fever ? aspiration related SEAN Substance abuse by history Recent travel [place] Elevated LFTs Fatty liver Plan Continue antibiotic Needs brain imaging bloody tap Junie JONES
--- NOTE | 2016-09-21 07:47 | PROC ---
Procedure Note Procedure: central line Central Line Insertion Indication: CVP Monitoring Risks and Benefits Explained: Yes Consent on Chart: Yes Central Line: Triple Lumen Catheter Anesthesia: 1% Lidocaine Sterile Technique: Yes Ultrasound Guided Assistance: Yes Position: Right Internal Jugular Post Insertion: Yes: Bilateral Breath Sounds, Chest X-Ray Ordered Sterile Dressing Applied: Yes
[2016-09-21 07:52] LABS: ALLENS TEST POSITIVE; ART PUNCT SITE RIGHT RADIAL; ARTERIAL BLD GAS O2 SATURATION 97.7 % (90-98.9); ARTERIAL BLOOD GAS HCO3 13.8 meq/L (22-26); ARTERIAL BLOOD GAS pH 7.37 (7.35-7.45); LPM/O2% 40; MECH. VENT. YES; PT. ON O2? YES; TYPE OF O2 VENT; VENT RATE 35; VT/PRESS 450
[2016-09-21] MEDS: INSULIN REGULAR 100 UNITS in SODIUM CHLORIDE 99 ML IVPB SCH (08:24)
[2016-09-21] MEDS: THIAMINE HCL 200 MG/2 ML VIAL IVPB SCH (09:36)
[2016-09-21] MEDS: FAMOTIDINE 20 MG/50 ML IVPB 50 ML IVPB SCH ×2 (09:36→21:42)
[2016-09-21] MEDS: KCL 10 MEQ IVPB 100 ML IVPB SCH ×2 (09:39→11:30)
[2016-09-21] MEDS: POTASSIUM CHLORIDE ORAL LIQUID 20 MEQ/15 ML PO SCH ×2 (09:39→21:43)
[2016-09-21] MEDS: MUPIROCIN 2% TOPICAL OINTMENT FOR DECOLONIZATION NS SCH ×2 (09:42→22:18)
--- NOTE | 2016-09-21 10:27 | CON.GI ---
Consult Consult Specialty:: Gastroenterology Referred by:: Danny Shine MD Reason for Consultation:: Abnormal LFTs and lipase - History of Present Illness Chief Complaint: Found unconscious, acidotic with DKA now intubated with h/o substance abuse History of Present Illness: 25M was found unresponsive at home. Family reported that he recently returned from [place] and was c/o feeling poorly. Family reported Etoh and cocaine abuse and h/o liver disease. Patient denies this when he awoke in the ER. He was found to have a pH of 6.8 in DKA. Sonogram reveals a fatty enlarged liver and no gallstones. No overt bleeding. Has been requiring vasopressors and sedation on ventilator. LFTs have been worsening since admission. Platelets are dropping. No cocaine, Etoh on toxin screen. History obtained from the chart and residents as no family is available. - History Source History Provided By: Medical Record, Caregiver Limitations to Obtaining History: Clinical Condition - Past Medical History Pulmonary: Yes: Asthma Gastrointestinal: Yes: Other (hepatomegaly with fatty liver likely due to alcohol) Psych: Yes: Addictions (cocaine and alcohol) - Alcohol/Substance Use Hx Alcohol Use: Yes (beer daily) History of Substance Use: reports: Cocaine - Smoking History Smoking history: Unknown if ever smoked Have you smoked in the past 12 months: No - Social History Place of : Other ([place]) Home Medications - Allergies Allergies/Adverse Reactions: Allergies Allergy/AdvReac Type Severity Reaction Status Date / Time No Known Allergies Allergy Verified 09/18/16 14:17 - Home Medications Home Medications: Ambulatory Orders NK [No Known Home Medication] 09/18/16 Family Disease History - Family Disease History Family History: Unable to Obtain Review of Systems Unable to obtain ROS, reason: unable to obtain Physical Exam-GI Vital Signs: Vital Signs Temperature 99.9 F H 09/21/16 07:00 Pulse Rate 91 H 09/21/16 07:00 Respiratory Rate 35 H 09/21/16 07:00 Blood Pressure 101/56 09/21/16 07:00 O2 Sat by Pulse Oximetry (%) 100 09/21/16 00:28 CBC,CMP WBC 6.0 K/mm3 (4.0-10.0) D 09/21/16 04:20 RBC 2.93 M/mm3 (4.00-5.60) L 09/21/16 04:20 Hgb 9.3 GM/dL (11.7-16.9) L 09/21/16 04:20 Hct 26.2 % (35.4-49) L 09/21/16 04:20 MCV 89.5 fl (80-96) 09/21/16 04:20 MCHC 35.6 g/dl (32.0-35.9) 09/21/16 04:20 RDW 14.6 % (11.9-15.9) 09/21/16 04:20 Plt Count 90 K/MM3 (134-434) L D 09/21/16 04:20 MPV 11.2 fl (7.5-11.1) H 09/21/16 04:20 Neutrophils % 79.9 % (42.8-82.8) 09/21/16 04:20 Lymphocytes % 16.4 % (8-40) D 09/21/16 04:20 Monocytes % 2.3 % (3.8-10.2) L 09/21/16 04:20 Eosinophils % 0.9 % (0-4.5) D 09/21/16 04:20 Basophils % 0.5 % (0-2.0) 09/21/16 04:20 Sodium 152 mmol/L (136-145) H 09/21/16 04:20 Potassium 3.7 mmol/L (3.5-5.1) D 09/21/16 04:20 Chloride 127 mmol/L (98-107) H 09/21/16 04:20 Carbon Dioxide 14 mmol/L (21-32) L 09/21/16 04:20 Anion Gap 11 (8-16) 09/21/16 04:20 BUN 31 mg/dL (7-18) H 09/21/16 04:20 Creatinine 2.6 mg/dL (0.7-1.3) H 09/21/16 04:20 Creat Clearance w eGFR 30.48 (>60) 09/21/16 04:20 POC Glucometer 270.08148 UNITS (()) 09/21/16 08:44 Random Glucose 307 mg/dL (74-106) H* D 09/21/16 04:20 Hemoglobin A1c % 12.9 % (4.8-6.0) H 09/19/16 06:05 Serum Osmolality 350 mosm/kg (278-305) H 09/18/16 23:30 Lactic Acid 0.579 mmol/L (0.4-2.0) 09/19/16 04:00 Calcium 7.0 mg/dL (8.5-10.1) L 09/21/16 04:20 Phosphorus 2.5 mg/dL (2.5-4.9) 09/21/16 04:20 Magnesium 1.9 mg/dL (1.8-2.4) 09/21/16 04:20 Total Bilirubin 0.6 mg/dL (0.2-1.0) D 09/21/16 04:20 Direct Bilirubin 0.2 mg/dL (0.0-0.2) D 09/19/16 03:20 AST 389 U/L (15-37) H D 09/21/16 04:20 ALT 165 U/L (12-78) H D 09/21/16 04:20 Alkaline Phosphatase 175 U/L (45-117) H D 09/21/16 04:20 LD Total 176 U/L (87-241) 09/19/16 06:05 Creatine Kinase 72 IU/L (39-308) 09/18/16 23:30 Troponin I 0.04 ng/ml (0.00-0.05) D 09/18/16 23:30 Total Protein 4.1 g/dl (6.4-8.2) L 09/21/16 04:20 Albumin 1.6 g/dl (3.4-5.0) L 09/21/16 04:20 Total Amylase 98 U/L (25-115) D 09/20/16 05:40 Lipase 262 U/L (73-393) 09/20/16 05:40 TSH 0.37 uIU/ml (0.358-3.74) 09/18/16 20:25 Current Medications Generic Name Dose Route Start Last Admin Trade Name Freq PRN Reason Stop Dose Admin Chlorhexidine Gluconate 1 applic 09/18/16 22:00 09/20/16 22:08 Hibiclens For Decolonization - TP 1 applic HS SILVER Administration IV Flush 4 ml 09/18/16 20:31 Triple Lumen Flush IVPUSH PRN PRN Protocol Insulin Human Regular 100 100 mls @ 7 mls/hr 09/18/16 15:30 09/21/16 08:24 units/ Sodium Chloride IVPB 12 mls/hr TITR SILVER Administration Protocol 7 UNITS/HR Propofol 100 mls @ 2.722 mls/hr 09/18/16 15:00 09/21/16 09:43 Diprivan - IVPB 27.215 mls/hr TITR SILVER Administration Protocol 5 MCG/KG/MIN Famotidine/Sodium Chloride 50 mls @ 100 mls/hr 09/19/16 10:00 09/21/16 09:36 Pepcid 20 Mg Premixed Ivpb - IVPB 100 mls/hr BID SILVER Administration Fentanyl 500 mcg/ Dextrose 100 mls @ 10 mls/hr 09/19/16 01:30 09/21/16 09:31 IVPB 30 mls/hr TITR SILVER Administration 50 MCG/HR Midazolam HCl 100 mg/ Sodium 100 mls @ 1 mls/hr 09/19/16 09:30 09/21/16 06:40 Chloride IVPB 10 mls/hr TITR SILVER Administration Protocol 1 MG/HR Norepinephrine Bitartrate 8, 1,000 mls @ 37.5 mls/hr 09/19/16 11:00 09/21/16 03 :00 000 mcg/ Sodium Chloride IV 4 mcg/min TITR SILVER Titration Protocol 5 MCG/MIN Piperacillin Sod/Tazobactam Sod 50 mls @ 100 mls/hr 09/20/16 09:00 09/21/16 09: 36 Zosyn 3.375gm Ivpb (Pre-Docked) IVPB 100 mls/hr Q8H-IV SILVER Administration Protocol Sodium Chloride 1,000 mls @ 75 mls/hr 09/20/16 18:30 09/20/16 19:03 1/2 Normal Saline IV 75 mls/hr ASDIR SILVER Administration Potassium Chloride 100 mls @ 100 mls/hr 09/21/16 09:00 09/21/16 09:39 Potassium Chloride 10 Meq Premix Ivpb - IVPB 09/21/16 10:59 100 mls/hr Q60M SILVER Administration Thiamine HCl 200 mg/ 1,012.2 mls @ 75 mls/hr 09/21/16 10:30 Multivitamins/Minerals 10 ml/ IVPB Folic Acid 1 mg/ Sodium ASDIR SILVER Chloride Mupirocin 1 applic 09/18/16 22:00 09/21/16 09:42 Bactroban Ointment (For Decolonization) - NS 09/23/16 21:59 1 applic BID SILVER Administration Potassium Chloride 40 meq 09/19/16 11:00 09/21/16 09:39 Potassium Chloride Oral Liquid PO 40 meq BID SILVER Administration Sodium Bicarbonate 50 meq 09/20/16 18:30 09/21/16 06:39 Sodium Bicarbonate 8.4% - IV 50 meq Q12H SILVER Administration Thiamine HCl 200 mg 09/19/16 10:00 09/21/16 09:36 Vitamin B1 Injection - IVPB 200 mg DAILY SILVER Administration Constitutional: Yes: Other (Intubated and sedated) Eyes: Yes: Conjunctiva Clear HENT: Yes: Atraumatic Neck: Yes: Supple Cardiovascular: Yes: Regular Rate and Rhythm Respiratory: Yes: CTA Bilaterally Gastrointestinal Inspection: Yes: WNL ...Auscultate: Yes: Hypoactive Bowel Sounds ...Palpate: Yes: Soft, Other (no tenderness elicited) ...Rectal Exam: Yes: Guaiac Positive (brown stool,), Other (rectal probe appreciated) Edema: No Peripheral Pulses WNL: Yes Labs: CBC, BMP 09/21/16 04:20 INR, PTT INR 1.12 (0.82-1.09) 09/21/16 04:20 Fibrinogen < 100.0 mg/dL (238-498) L* 09/18/16 18:00 Imaging - Results Ultrasound: Image Reviewed (enlarged fatty liver, no gallstones) Assessment/Plan I suspect that Guy has 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 LFTs reflect ductal dilation due to pancreatitis superimposed on alcoholic hepatitis. Await CT of abdomen to confirm pancreatitis. He may have a pancreatitic abscess causing DIC. Agree with brisk fluid and electrolyte replacement and antibiotics. Need to observe for alcohol withdrawal with DTs. Discussed with Dr Sexton and residents.
--- NOTE | 2016-09-21 10:30 | PN ---
Physical Exam: SUBJECTIVE: Patient seen and examined at bedside in the ICU OBJECTIVE: Vital Signs Period Temp Pulse Resp BP Sys/Gould Pulse Ox Last 24 Hr 95.7 F-101.1 F 73-111 35-35 93-119/49-71 100-100 GENERAL: Intubated sedated. HEAD: Normal with no signs of trauma. EYES: Pupils equal, round and reactive to light, Sclera anicteric, Conjunctiva clear EARS, NOSE, THROAT:Moist mucous membranes. NECK: No JVD . LUNGS: . Bronchial breath sounds coarse breath sounds. No wheezes, and no crackles. Intubated. HEART: RRR S1 S2 no murmurs rubs or gallops ABDOMEN: Soft, nontender, not distended UPPER EXTREMITIES: warm, well-perfused. 1+ pitting edema LOWER EXTREMITIES: warm, well-perfused. Trace non pitting edema : arnold in place Laboratory Results - last 24 hr 09/18/16 09/18/16 09/18/16 17:43 19:57 20:49 WBC RBC Hgb Hct MCV MCHC RDW Plt Count MPV Neutrophils % Lymphocytes % Monocytes % Eosinophils % Basophils % INR PTT (Actin FS) Puncture Site ABG pH ABG pCO2 at Pt Temp ABG pO2 at Pt Temp ABG HCO3 ABG O2 Sat (Measured) ABG O2 Content ABG Base Excess Dennis Test O2 Delivery Device Oxygen Flow Rate Vent Mode Vent Rate Mechanical Rate PEEP Pressure Support Vent Sodium Potassium Chloride Carbon Dioxide Anion Gap BUN Creatinine Creat Clearance w eGFR POC Glucometer > 400 > 400 > 400 Random Glucose Calcium Phosphorus Magnesium Total Bilirubin AST ALT Alkaline Phosphatase Total Protein Albumin 09/18/16 09/19/16 09/19/16 22:24 00:01 05:55 WBC RBC Hgb Hct MCV MCHC RDW Plt Count MPV Neutrophils % Lymphocytes % Monocytes % Eosinophils % Basophils % INR PTT (Actin FS) Puncture Site ABG pH ABG pCO2 at Pt Temp ABG pO2 at Pt Temp ABG HCO3 ABG O2 Sat (Measured) ABG O2 Content ABG Base Excess Dennis Test O2 Delivery Device Oxygen Flow Rate Vent Mode Vent Rate Mechanical Rate PEEP Pressure Support Vent Sodium Potassium Chloride Carbon Dioxide Anion Gap BUN Creatinine Creat Clearance w eGFR POC Glucometer > 400 > 400 > 400 Random Glucose Calcium Phosphorus Magnesium Total Bilirubin AST ALT Alkaline Phosphatase Total Protein Albumin 09/19/16 09/19/16 09/19/16 06:54 08:04 10:16 WBC RBC Hgb Hct MCV MCHC RDW Plt Count MPV Neutrophils % Lymphocytes % Monocytes % Eosinophils % Basophils % INR PTT (Actin FS) Puncture Site ABG pH ABG pCO2 at Pt Temp ABG pO2 at Pt Temp ABG HCO3 ABG O2 Sat (Measured) ABG O2 Content ABG Base Excess Dennis Test O2 Delivery Device Oxygen Flow Rate Vent Mode Vent Rate Mechanical Rate PEEP Pressure Support Vent Sodium Potassium Chloride Carbon Dioxide Anion Gap BUN Creatinine Creat Clearance w eGFR POC Glucometer > 400 > 400 > 400 Random Glucose Calcium Phosphorus Magnesium Total Bilirubin AST ALT Alkaline Phosphatase Total Protein Albumin 09/19/16 09/19/16 09/19/16 12:23 12:27 15:59 WBC RBC Hgb Hct MCV MCHC RDW Plt Count MPV Neutrophils % Lymphocytes % Monocytes % Eosinophils % Basophils % INR PTT (Actin FS) Puncture Site ABG pH ABG pCO2 at Pt Temp ABG pO2 at Pt Temp ABG HCO3 ABG O2 Sat (Measured) ABG O2 Content ABG Base Excess Dennis Test O2 Delivery Device Oxygen Flow Rate Vent Mode Vent Rate Mechanical Rate PEEP Pressure Support Vent Sodium Potassium Chloride Carbon Dioxide Anion Gap BUN Creatinine Creat Clearance w eGFR POC Glucometer 78.54873 226.81137 > 400 Random Glucose Calcium Phosphorus Magnesium Total Bilirubin AST ALT Alkaline Phosphatase Total Protein Albumin 09/19/16 09/19/16 09/19/16 20:05 21:08 22:14 WBC RBC Hgb Hct MCV MCHC RDW Plt Count MPV Neutrophils % Lymphocytes % Monocytes % Eosinophils % Basophils % INR PTT (Actin FS) Puncture Site ABG pH ABG pCO2 at Pt Temp ABG pO2 at Pt Temp ABG HCO3 ABG O2 Sat (Measured) ABG O2 Content ABG Base Excess Dennis Test O2 Delivery Device Oxygen Flow Rate Vent Mode Vent Rate Mechanical Rate PEEP Pressure Support Vent Sodium Potassium Chloride Carbon Dioxide Anion Gap BUN Creatinine Creat Clearance w eGFR POC Glucometer > 400 > 400 > 400 Random Glucose Calcium Phosphorus Magnesium Total Bilirubin AST ALT Alkaline Phosphatase Total Protein Albumin 09/19/16 09/20/16 09/20/16 23:07 00:25 10:07 WBC RBC Hgb Hct MCV MCHC RDW Plt Count MPV Neutrophils % Lymphocytes % Monocytes % Eosinophils % Basophils % INR PTT (Actin FS) Puncture Site ABG pH ABG pCO2 at Pt Temp ABG pO2 at Pt Temp ABG HCO3 ABG O2 Sat (Measured) ABG O2 Content ABG Base Excess Dennis Test O2 Delivery Device Oxygen Flow Rate Vent Mode Vent Rate Mechanical Rate PEEP Pressure Support Vent Sodium Potassium Chloride Carbon Dioxide Anion Gap BUN Creatinine Creat Clearance w eGFR POC Glucometer > 400 > [phone] Random Glucose Calcium Phosphorus Magnesium Total Bilirubin AST ALT Alkaline Phosphatase Total Protein Albumin 09/20/16 09/20/16 09/20/16 11:58 13:00 13:24 WBC RBC Hgb Hct MCV MCHC RDW Plt Count MPV Neutrophils % Lymphocytes % Monocytes % Eosinophils % Basophils % INR PTT (Actin FS) Puncture Site ABG pH ABG pCO2 at Pt Temp ABG pO2 at Pt Temp ABG HCO3 ABG O2 Sat (Measured) ABG O2 Content ABG Base Excess Dennis Test O2 Delivery Device Oxygen Flow Rate Vent Mode Vent Rate Mechanical Rate PEEP Pressure Support Vent Sodium 154 H Potassium 3.6 Chloride 129 H Carbon Dioxide 13 L Anion Gap 12 BUN 26 H Creatinine 2.1 H Creat Clearance w eGFR POC Glucometer 340.62018 374.84628 Random Glucose 271 H D Calcium 7.0 L Phosphorus 3.0 Magnesium 2.0 Total Bilirubin AST ALT Alkaline Phosphatase Total Protein Albumin 09/20/16 09/20/16 09/20/16 14:26 15:31 16:46 WBC RBC Hgb Hct MCV MCHC RDW Plt Count MPV Neutrophils % Lymphocytes % Monocytes % Eosinophils % Basophils % INR PTT (Actin FS) Puncture Site ABG pH ABG pCO2 at Pt Temp ABG pO2 at Pt Temp ABG HCO3 ABG O2 Sat (Measured) ABG O2 Content ABG Base Excess Dennis Test O2 Delivery Device Oxygen Flow Rate Vent Mode Vent Rate Mechanical Rate PEEP Pressure Support Vent Sodium Potassium Chloride Carbon Dioxide Anion Gap BUN Creatinine Creat Clearance w eGFR POC Glucometer > 400 > 400 > 400 Random Glucose Calcium Phosphorus Magnesium Total Bilirubin AST ALT Alkaline Phosphatase Total Protein Albumin 09/20/16 09/20/16 09/20/16 17:42 18:40 19:40 WBC RBC Hgb Hct MCV MCHC RDW Plt Count MPV Neutrophils % Lymphocytes % Monocytes % Eosinophils % Basophils % INR PTT (Actin FS) Puncture Site ABG pH ABG pCO2 at Pt Temp ABG pO2 at Pt Temp ABG HCO3 ABG O2 Sat (Measured) ABG O2 Content ABG Base Excess Dennis Test O2 Delivery Device Oxygen Flow Rate Vent Mode Vent Rate Mechanical Rate PEEP Pressure Support Vent Sodium 149 H Potassium 5.7 H D Chloride 125 H Carbon Dioxide 11 L Anion Gap 13 BUN 29 H Creatinine 2.3 H Creat Clearance w eGFR POC Glucometer > 400 > 400 Random Glucose 446 H* D Calcium 7.0 L Phosphorus 3.3 Magnesium 1.9 Total Bilirubin AST ALT Alkaline Phosphatase Total Protein Albumin 09/20/16 09/20/16 09/20/16 19:40 19:44 21:16 WBC RBC Hgb Hct MCV MCHC RDW Plt Count MPV Neutrophils % Lymphocytes % Monocytes % Eosinophils % Basophils % INR PTT (Actin FS) Puncture Site ABG pH ABG pCO2 at Pt Temp ABG pO2 at Pt Temp ABG HCO3 ABG O2 Sat (Measured) ABG O2 Content ABG Base Excess Dennis Test O2 Delivery Device Oxygen Flow Rate Vent Mode Vent Rate Mechanical Rate PEEP Pressure Support Vent Sodium Potassium Chloride Carbon Dioxide Anion Gap BUN Creatinine Creat Clearance w eGFR POC Glucometer > 400 > 400 Random Glucose Cancelled Calcium Phosphorus Magnesium Total Bilirubin AST ALT Alkaline Phosphatase Total Protein Albumin 09/20/16 09/20/16 09/20/16 22:12 23:09 23:30 WBC RBC Hgb Hct MCV MCHC RDW Plt Count MPV Neutrophils % Lymphocytes % Monocytes % Eosinophils % Basophils % INR PTT (Actin FS) Puncture Site ABG pH ABG pCO2 at Pt Temp ABG pO2 at Pt Temp ABG HCO3 ABG O2 Sat (Measured) ABG O2 Content ABG Base Excess Dennis Test O2 Delivery Device Oxygen Flow Rate Vent Mode Vent Rate Mechanical Rate PEEP Pressure Support Vent Sodium 148 H Potassium 5.6 H Chloride 123 H Carbon Dioxide 12 L Anion Gap 13 BUN 31 H Creatinine 2.4 H Creat Clearance w eGFR POC Glucometer > 400 > 400 Random Glucose 469 H* Calcium 7.0 L Phosphorus 3.1 Magnesium 1.9 Total Bilirubin AST ALT Alkaline Phosphatase Total Protein Albumin 09/21/16 09/21/16 09/21/16 00:00 01:06 02:00 WBC RBC Hgb Hct MCV MCHC RDW Plt Count MPV Neutrophils % Lymphocytes % Monocytes % Eosinophils % Basophils % INR PTT (Actin FS) Puncture Site ABG pH ABG pCO2 at Pt Temp ABG pO2 at Pt Temp ABG HCO3 ABG O2 Sat (Measured) ABG O2 Content ABG Base Excess Dennis Test O2 Delivery Device Oxygen Flow Rate Vent Mode Vent Rate Mechanical Rate PEEP Pressure Support Vent Sodium Potassium Chloride Carbon Dioxide Anion Gap BUN Creatinine Creat Clearance w eGFR POC Glucometer > 400 > 400 Random Glucose 396 H* Calcium Phosphorus Magnesium Total Bilirubin AST ALT Alkaline Phosphatase Total Protein Albumin 09/21/16 09/21/16 09/21/16 02:01 03:04 04:14 WBC RBC Hgb Hct MCV MCHC RDW Plt Count MPV Neutrophils % Lymphocytes % Monocytes % Eosinophils % Basophils % INR PTT (Actin FS) Puncture Site ABG pH ABG pCO2 at Pt Temp ABG pO2 at Pt Temp ABG HCO3 ABG O2 Sat (Measured) ABG O2 Content ABG Base Excess Dennis Test O2 Delivery Device Oxygen Flow Rate Vent Mode Vent Rate Mechanical Rate PEEP Pressure Support Vent Sodium Potassium Chloride Carbon Dioxide Anion Gap BUN Creatinine Creat Clearance w eGFR POC Glucometer > 400 > 400 > 400 Random Glucose Calcium Phosphorus Magnesium Total Bilirubin AST ALT Alkaline Phosphatase Total Protein Albumin 09/21/16 09/21/16 09/21/16 04:20 04:20 04:20 WBC 6.0 D RBC 2.93 L Hgb 9.3 L Hct 26.2 L MCV 89.5 MCHC 35.6 RDW 14.6 Plt Count 90 L D MPV 11.2 H Neutrophils % 79.9 Lymphocytes % 16.4 D Monocytes % 2.3 L Eosinophils % 0.9 D Basophils % 0.5 INR 1.12 PTT (Actin FS) 49.3 H D Puncture Site ABG pH ABG pCO2 at Pt Temp ABG pO2 at Pt Temp ABG HCO3 ABG O2 Sat (Measured) ABG O2 Content ABG Base Excess Dennis Test O2 Delivery Device Oxygen Flow Rate Vent Mode Vent Rate Mechanical Rate PEEP Pressure Support Vent Sodium 152 H Potassium 3.7 D Chloride 127 H Carbon Dioxide 14 L Anion Gap 11 BUN 31 H Creatinine 2.6 H Creat Clearance w eGFR 30.48 POC Glucometer Random Glucose 307 H* D Calcium 7.0 L Phosphorus 2.5 Magnesium 1.9 Total Bilirubin 0.6 D AST 389 H D ALT 165 H D Alkaline Phosphatase 175 H D Total Protein 4.1 L Albumin 1.6 L 09/21/16 09/21/16 09/21/16 05:05 06:12 07:01 WBC RBC Hgb Hct MCV MCHC RDW Plt Count MPV Neutrophils % Lymphocytes % Monocytes % Eosinophils % Basophils % INR PTT (Actin FS) Puncture Site ABG pH ABG pCO2 at Pt Temp ABG pO2 at Pt Temp ABG HCO3 ABG O2 Sat (Measured) ABG O2 Content ABG Base Excess Dennis Test O2 Delivery Device Oxygen Flow Rate Vent Mode Vent Rate Mechanical Rate PEEP Pressure Support Vent Sodium Potassium Chloride Carbon Dioxide Anion Gap BUN Creatinine Creat Clearance w eGFR POC Glucometer 377.37654 365.65652 347.86431 Random Glucose Calcium Phosphorus Magnesium Total Bilirubin AST ALT Alkaline Phosphatase Total Protein Albumin 09/21/16 09/21/16 09/21/16 07:15 07:47 08:44 WBC RBC Hgb Hct MCV MCHC RDW Plt Count MPV Neutrophils % Lymphocytes % Monocytes % Eosinophils % Basophils % INR PTT (Actin FS) Puncture Site Right radial ABG pH 7.37 ABG pCO2 at Pt Temp 24.4 L ABG pO2 at Pt Temp 180.0 H* ABG HCO3 13.8 L* ABG O2 Sat (Measured) 97.7 ABG O2 Content 11.9 L ABG Base Excess -10.0 L Dennis Test Positive O2 Delivery Device Vent Oxygen Flow Rate 40 Vent Mode A/c Vent Rate 35 Mechanical Rate Yes PEEP 5.0 Pressure Support Vent 450 Sodium Potassium Chloride Carbon Dioxide Anion Gap BUN Creatinine Creat Clearance w eGFR POC Glucometer 321.71528 270.49364 Random Glucose Calcium Phosphorus Magnesium Total Bilirubin AST ALT Alkaline Phosphatase Total Protein Albumin Active Medications Generic Name Dose Route Start Last Admin Trade Name Freq PRN Reason Stop Dose Admin Chlorhexidine Gluconate 1 applic 09/18/16 22:00 09/20/16 22:08 Hibiclens For Decolonization - TP 1 applic HS SILVER Administration IV Flush 4 ml 09/18/16 20:31 Triple Lumen Flush IVPUSH PRN PRN Protocol Insulin Human Regular 100 100 mls @ 7 mls/hr 09/18/16 15:30 09/21/16 08:24 units/ Sodium Chloride IVPB 12 mls/hr TITR SILVER Administration Protocol 7 UNITS/HR Propofol 100 mls @ 2.722 mls/hr 09/18/16 15:00 09/21/16 09:43 Diprivan - IVPB 27.215 mls/hr TITR SILVER Administration Protocol 5 MCG/KG/MIN Famotidine/Sodium Chloride 50 mls @ 100 mls/hr 09/19/16 10:00 04/17/17 09:36 Pepcid 20 Mg Premixed Ivpb - IVPB 100 mls/hr BID SILVER Administration Fentanyl 500 mcg/ Dextrose 100 mls @ 10 mls/hr 09/19/16 01:30 09/21/16 09:31 IVPB 30 mls/hr TITR SILVER Administration 50 MCG/HR Midazolam HCl 100 mg/ Sodium 100 mls @ 1 mls/hr 09/19/16 09:30 09/21/16 06:40 Chloride IVPB 10 mls/hr TITR SILVER Administration Protocol 1 MG/HR Norepinephrine Bitartrate 8, 1,000 mls @ 37.5 mls/hr 09/19/16 11:00 09/21/16 03 :00 000 mcg/ Sodium Chloride IV 4 mcg/min TITR SILVER Titration Protocol 5 MCG/MIN Piperacillin Sod/Tazobactam Sod 50 mls @ 100 mls/hr 09/20/16 09:00 09/21/16 09: 36 Zosyn 3.375gm Ivpb (Pre-Docked) IVPB 100 mls/hr Q8H-IV SILVER Administration Protocol Sodium Chloride 1,000 mls @ 75 mls/hr 09/20/16 18:30 09/20/16 19:03 1/2 Normal Saline IV 75 mls/hr ASDIR SILVER Administration Potassium Chloride 100 mls @ 100 mls/hr 09/21/16 09:00 09/21/16 09:39 Potassium Chloride 10 Meq Premix Ivpb - IVPB 09/21/16 10:59 100 mls/hr Q60M SILVER Administration Thiamine HCl 200 mg/ 1,012.2 mls @ 75 mls/hr 09/21/16 10:30 Multivitamins/Minerals 10 ml/ IVPB Folic Acid 1 mg/ Sodium ASDIR SILVER Chloride Mupirocin 1 applic 09/18/16 22:00 09/21/16 09:42 Bactroban Ointment (For Decolonization) - NS 09/23/16 21:59 1 applic BID SILVER Administration Potassium Chloride 40 meq 09/19/16 11:00 09/21/16 09:39 Potassium Chloride Oral Liquid PO 40 meq BID SILVER Administration Sodium Bicarbonate 50 meq 09/20/16 18:30 09/21/16 06:39 Sodium Bicarbonate 8.4% - IV 50 meq Q12H SILVER Administration Thiamine HCl 200 mg 09/19/16 10:00 09/21/16 09:36 Vitamin B1 Injection - IVPB 200 mg DAILY SILVER Administration ASSESSMENT/PLAN: 25M found down with no PMH of DM presents to the ED unresponsive in DKA and severe sepsis. Diabetic ketoacidosis: patient has likely been a diabetic for a long time and has been undiagnosed and this is his initial presentation of DKA from untreated type 1 DM Change bicarb gtt to bicarb ampule q12h run over [address] Espinoza from nephrology if blood glucose drops to below 250 restart dextrose containing fluids continue 1/2 normal saline @ 75ml/hr Endocrinology consult appreciated recommendations noted-insulin gtt per endocrinology orders Insulin gtt BMP q4h replete potassium aggressively PRN will need outpatient follow up with ophthalmology and podiatry HbA1C 12.9 Severe Sepsis: tachycardic hypothermicon presentation now febrile leukocytosis on presentation now resolved with acute kidney injury lactic acidosis and hypotension patient now meets criteria for septic shock as he has had adequate fluid resuscitation and is still hypotensive requiring pressors (levophed) for pressure support Continue Levophed wean as tolerated source of infection unknown BCx no growth so far UCx-no growth final continue Zosyn f/u CSF cultures patient is having multi-organ failure Acute respiratory failure: from DKA intubated ventilatory support ABG improved from admission sedation for evaluate mental status and patient seems to be twitching his legs ? seizure activity will do Head CT today as patient had a blood LP tap Possible seizure activity when sedation is held possible withdrawals neurology consult Thrombocytopenia: possible related to HIT Stop HSQ sent HIT Ab Send serotonin release assay Hematology consult-Dr. Fernandez Send LDH haptoglobin Possible DIC: send Fibrin split products send fibrinogen Coags WNL lactic acidosis: resolved from dehydration and volume depletion from third spacing of fluids trend lactic acid aggressive IVF for hydration Alcohol abuse: start 1/2 NS @ 42ml/hr with MVN thiamine and folate Metabolic acidosis: from diabetic ketoacidosis Bicarb ampule q12h run over [address] Espinoza from nephrology Acute renal failure/Acute kidney injury: Nephrology consult appreciated Cr 2.6 worsened today renal work up in process aggressive IVF for hydration Trend Cr avoid nephrotoxic drugs Transaminitis/questionable history of Liver disease: LFTs were improving but today LFTs significantly increased transaminitis likely from shock liver from hypoperfusion vs alcoholic liver disease Liver US showed fatty liver likely from alcoholism vs obesity Aggressive IVF hydration and volume repletion will need more history from the patient when he is stable alert and awake GI consult for hepatology evaluation Will do CT Abdomen pelvis with po contrast can not give IV contrast as patient is in renal failure patient has some blood in his stool but not melena spoke to Dr. Koehler from GI possible patient is having a hemorrhagic pancreatitis-will f/u CTAP Hematuria: from traumatic arnold insertion resolved Hypernatremia:patient intially has pseudohyponatremia from hyperglycemia as corrected sodium was normal now patient is hypernatremic continue 1/2 NS continue free water through NGT f/u nephrology for further receommendations hypernatrmia: free water through NGT 250ml/hr q6h per Dr. Espinoza 1/2 NS @ 75ml/hr Asthma: intubated at this time will address this if it is active once stable FEN: 1/2 NS @ 75ml/hr/ and free water through NGT replete potassium for hypokalemia while on insulin gtt keep K+>4.0. hypernatremia see above for plan NPO PPx: SCDs stop HSQ for possible HIT Pepcid No PT consult at this time CCT 45 minutes ICU care Guarded prognosis Visit type - Emergency Visit Emergency Visit: Yes ED Registration Date: 09/18/16 Care time: The patient presented to the Emergency Department on the above date and was hospitalized for further evaluation of their emergent condition. - New Patient This patient is new to me today: No - Critical Care Critical Care patient: Yes Total Critical Care Time (in minutes): 45 Critical Care Statement: The care of this patient involved high complexity decision making to prevent further life threatening deterioration of the patient 's condition and/or to evalute & treat vital organ system(s) failure or risk of failure.
[2016-09-21 10:42] LABS: CALCIUM 7.2 mg/dL (8.5-10.1); COCKROFT - GAULT 68.08; CREATININE 2.4 mg/dL (0.7-1.3)
[2016-09-21 10:50] LABS: MAGNESIUM 1.8 mg/dL (1.8-2.4)
[2016-09-21] MEDS ORDERED: FOLIC ACID IVPB ONE (11:00)
[2016-09-21] MEDS ORDERED: SODIUM CHLORIDE 0.45% IVPB ONE (11:00)
[2016-09-21] MEDS ORDERED: THIAMINE HCL IVPB ONE ×2 (11:00)
[2016-09-21] MEDS ORDERED: [UNRECOGNIZED DRUG - OTHER] IVPB ONE (11:00)
[2016-09-21] MEDS ORDERED: MULTIVIT IVPB ONE (11:00)
[2016-09-21] MEDS ORDERED: [UNRECOGNIZED DRUG - OTHER] IVPB ONE (11:00)
[2016-09-21] MEDS ORDERED: KCL 10 MEQ IVPB 100 ML IVPB SCH (11:00)
[2016-09-21] MEDS ORDERED: PNEUMOC 13-VAL CONJ-DIP CRM/PF 0.5 ML DISP.SYRIN IM ONE (11:27)
[2016-09-21] MEDS ORDERED: D5-NS + 20 MEQ KCL - 1,000 ML IV SCH ×2 (11:30)
[2016-09-21] MEDS ORDERED: SODIUM CHLORIDE 500 ML IV STA (11:44)
--- NOTE | 2016-09-21 11:50 | PN ---
Teaching Attending Note Name of Resident: Pilo Gonzales ATTENDING PHYSICIAN STATEMENT I saw and evaluated the patient. I reviewed the resident's note and discussed the case with the resident. I agree with the resident's findings and plan as documented. SUBJECTIVE: Pt seen and examined in the ICU. Remains intubated, sedated on levophed gtt. Fever curve trending down. Becomes tremulous when sedation lightened. OBJECTIVE: Last Vital Signs Temp Pulse Resp BP Pulse Ox 99.9 F H 87 35 H 101/56 99 09/21/16 07:00 09/21/16 09:30 09/21/16 09:15 09/21/16 07:00 09/21/16 09:30 Intake & Output 09/18/16 09/19/16 09/20/16 09/21/16 23:59 23:59 23:59 23:59 Intake Total 4000 9256.8 3613.2 1530.9 Output Total 600 2600 3000 1200 Balance 3400 6656.8 613.2 330.9 Weight 194 lb 194 lb 7 oz 218 lb 6 oz 223 lb 9.6 oz Gen: intubated, sedated Heart: RRR Lung: scattered rhonchi Abd: soft, nontender Ext: trace edema CBC, BMP 09/21/16 04:20 09/21/16 09:55 Active Medications Albuterol/Ipratropium (Duoneb -) 1 amp NEB TIDR SILVER Chlorhexidine Gluconate (Hibiclens For Decolonization -) 1 applic TP HS SILVER Last Admin: 09/20/16 22:08 Dose: 1 applic IV Flush (Triple Lumen Flush) 4 ml IVPUSH PRN PRN PRN Reason: Protocol Insulin Human Regular 100 (units/ Sodium Chloride) 100 mls @ 7 mls/hr IVPB TITR SILVER; 7 UNITS/HR PRN Reason: Protocol Last Admin: 09/21/16 08:24 Dose: 12 mls/hr Propofol (Diprivan -) 100 mls @ 2.722 mls/hr IVPB TITR SILVER; 5 MCG/KG/MIN PRN Reason: Protocol Last Admin: 09/21/16 09:43 Dose: 27.215 mls/hr Famotidine/Sodium Chloride (Pepcid 20 Mg Premixed Ivpb -) 50 mls @ 100 mls/hr IVPB BID SILVER Last Admin: 09/21/16 09:36 Dose: 100 mls/hr Fentanyl 500 mcg/ Dextrose 100 mls @ 10 mls/hr IVPB TITR SILVER PRN Reason: 50 MCG/HR Last Admin: 09/21/16 09:31 Dose: 30 mls/hr Midazolam HCl 100 mg/ Sodium (Chloride) 100 mls @ 1 mls/hr IVPB TITR SILVER; 1 MG/ HR PRN Reason: Protocol Last Admin: 09/21/16 06:40 Dose: 10 mls/hr Norepinephrine Bitartrate 8, (000 mcg/ Sodium Chloride) 1,000 mls @ 37.5 mls/ hr IV TITR SILVER; 5 MCG/MIN PRN Reason: Protocol Last Titration: 09/21/16 03:00 Dose: 4 mcg/min Piperacillin Sod/Tazobactam Sod (Zosyn 3.375gm Ivpb (Pre-Docked)) 50 mls @ 100 mls/hr IVPB Q8H-IV SILVER PRN Reason: Protocol Last Admin: 09/21/16 09:36 Dose: 100 mls/hr Potassium Chloride (Potassium Chloride 10 Meq Premix Ivpb -) 100 mls @ 100 mls/ hr IVPB Q60M SILVER Stop: 09/21/16 11:59 Thiamine HCl 200 mg/Multivitamins/Minerals 10 ml/Folic Acid 1 mg/ Sodium Chloride 1,012.2 mls @ 42.175 mls/hr IVPB ONCE ONE Stop: 09/22/16 10:59 Dextrose/Sodium Chloride (Dextrose 5%-Normal Saline+20 Meq Kcl -) 1,000 mls @ 75 mls/hr IV ASDIR SILVER Sodium Chloride (Normal Saline -) 500 mls @ 500 mls/hr IV ASDIR STA Stop: 09/21/16 12:43 Mupirocin (Bactroban Ointment (For Decolonization) -) 1 applic NS BID SILVER Stop: 09/23/16 21:59 Last Admin: 09/21/16 09:42 Dose: 1 applic Pneumococcal 13-Valent Conj Vacc (Prevnar 13 Syringe -) 0.5 ml IM .ONCE ONE Stop: 09/21/16 11:28 Potassium Chloride (Potassium Chloride Oral Liquid) 40 meq PO BID SILVER Last Admin: 09/21/16 09:39 Dose: 40 meq Sodium Bicarbonate (Sodium Bicarbonate 8.4% -) 50 meq IV Q12H [facility] Last Admin: 09/21/16 06:39 Dose: 50 meq Thiamine HCl (Vitamin B1 Injection -) 200 mg IVPB DAILY [facility] Last Admin: 09/21/16 09:36 Dose: 200 mg ASSESSMENT AND PLAN: Acute Respiratory Failure Polysubstance Abuse Diabetic Ketoacidosis Metabolic Acidosis r/o Acute Pancreatitis r/o Septic Shock Acute Kidney Injury Lactic Acidosis Elevated LFTs ?Alcohol Withdrawal - continue empiric antibiotics - f/u cultures - CT A/P, head today - IVF - monitor urine output, creatinine - keep CVP 8-12 - titrate pressors to maintain MAP >65 - replete lytes - sedate for vent synchrony and ?DTs - bicarb per renal - not a candidate for weaning at this time due to sedation requirements - spontaneous breathing trials as tolerated when mental status improved - enteral feeds - DVT/GI prophylaxis - continue ICU monitoring critical care time spent in reviewing chart, evaluating patient and formulating plan 36 min
--- NOTE | 2016-09-21 12:03 | PN ---
Progress Note, Physician History of Present Illness: Pt seen and examined at bedside. He remains in the ICU. He remains intubated. - Current Medication List Current Medications: Active Medications Albuterol/Ipratropium (Duoneb -) 1 amp NEB TIDR SILVER Chlorhexidine Gluconate (Hibiclens For Decolonization -) 1 applic TP HS SILVER Last Admin: 09/20/16 22:08 Dose: 1 applic IV Flush (Triple Lumen Flush) 4 ml IVPUSH PRN PRN PRN Reason: Protocol Insulin Human Regular 100 (units/ Sodium Chloride) 100 mls @ 7 mls/hr IVPB TITR SILVER; 7 UNITS/HR PRN Reason: Protocol Last Admin: 09/21/16 08:24 Dose: 12 mls/hr Propofol (Diprivan -) 100 mls @ 2.722 mls/hr IVPB TITR SILVER; 5 MCG/KG/MIN PRN Reason: Protocol Last Admin: 09/21/16 09:43 Dose: 27.215 mls/hr Famotidine/Sodium Chloride (Pepcid 20 Mg Premixed Ivpb -) 50 mls @ 100 mls/hr IVPB BID SILVER Last Admin: 09/21/16 09:36 Dose: 100 mls/hr Fentanyl 500 mcg/ Dextrose 100 mls @ 10 mls/hr IVPB TITR SILVER PRN Reason: 50 MCG/HR Last Admin: 09/21/16 09:31 Dose: 30 mls/hr Midazolam HCl 100 mg/ Sodium (Chloride) 100 mls @ 1 mls/hr IVPB TITR SILVER; 1 MG/ HR PRN Reason: Protocol Last Admin: 09/21/16 06:40 Dose: 10 mls/hr Norepinephrine Bitartrate 8, (000 mcg/ Sodium Chloride) 1,000 mls @ 37.5 mls/ hr IV TITR SILVER; 5 MCG/MIN PRN Reason: Protocol Last Titration: 09/21/16 03:00 Dose: 4 mcg/min Piperacillin Sod/Tazobactam Sod (Zosyn 3.375gm Ivpb (Pre-Docked)) 50 mls @ 100 mls/hr IVPB Q8H-IV SILVER PRN Reason: Protocol Last Admin: 09/21/16 09:36 Dose: 100 mls/hr Thiamine HCl 200 mg/Multivitamins/Minerals 10 ml/Folic Acid 1 mg/ Sodium Chloride 1,012.2 mls @ 42.175 mls/hr IVPB ONCE ONE Stop: 09/22/16 10:59 Dextrose/Sodium Chloride (Dextrose 5%-Normal Saline+20 Meq Kcl -) 1,000 mls @ 75 mls/hr IV ASDIR SILVER Sodium Chloride (Normal Saline -) 500 mls @ 500 mls/hr IV ASDIR STA Stop: 09/21/16 12:43 Mupirocin (Bactroban Ointment (For Decolonization) -) 1 applic NS BID SILVER Stop: 09/23/16 21:59 Last Admin: 09/21/16 09:42 Dose: 1 applic Pneumococcal 13-Valent Conj Vacc (Prevnar 13 Syringe -) 0.5 ml IM .ONCE ONE Stop: 09/21/16 11:28 Potassium Chloride (Potassium Chloride Oral Liquid) 40 meq PO BID [facility] Last Admin: 09/21/16 09:39 Dose: 40 meq Sodium Bicarbonate (Sodium Bicarbonate 8.4% -) 50 meq IV Q12H [facility] Last Admin: 09/21/16 06:39 Dose: 50 meq Thiamine HCl (Vitamin B1 Injection -) 200 mg IVPB DAILY [facility] Last Admin: 09/21/16 09:36 Dose: 200 mg - Objective Vital Signs: Vital Signs Temperature 99.9 F H 09/21/16 07:00 Pulse Rate 87 09/21/16 09:30 Respiratory Rate 35 H 09/21/16 09:15 Blood Pressure 101/56 09/21/16 07:00 O2 Sat by Pulse Oximetry (%) 99 09/21/16 09:30 Constitutional: Yes: Calm Eyes: Yes: Conjunctiva Clear Cardiovascular: Yes: S1, S2 Respiratory: Yes: Mechanically Ventilated Gastrointestinal: Yes: Soft, Abdomen, Obese, Hypoactive Bowel Sounds Genitourinary: Yes: Kelly Present Musculoskeletal: Yes: Muscle Weakness Edema: Yes Edema: LUE: 1+, RUE: 1+, LLE: 1+, RLE: 1+ Neurological: Yes: Other (sedated) Labs: CBC, BMP 09/21/16 04:20 09/21/16 09:55 INR, PTT INR 1.12 (0.82-1.09) 09/21/16 04:20 Fibrinogen < 100.0 mg/dL (238-498) L* 09/18/16 18:00 - ....Imaging Chest X-ray: Report Reviewed Problem List - Problems (1) Acute renal insufficiency Code(s): N28.9 - DISORDER OF KIDNEY AND URETER, UNSPECIFIED (2) Altered mental status Code(s): R41.82 - ALTERED MENTAL STATUS, UNSPECIFIED Qualifiers: Altered mental status type: stupor Qualified Code(s): R40.1 - Stupor (3) Lactic acidosis Code(s): E87.2 - ACIDOSIS (4) Leukocytosis Code(s): D72.829 - ELEVATED WHITE BLOOD CELL COUNT, UNSPECIFIED (5) Respiratory failure Code(s): J96.90 - RESPIRATORY FAILURE, UNSP, UNSP W HYPOXIA OR HYPERCAPNIA Assessment/Plan Current Medications Generic Name Dose Route Start Last Admin Trade Name Freq PRN Reason Stop Dose Admin Albuterol/Ipratropium 1 amp 09/21/16 14:00 Duoneb - NEB TIDR SILVER Chlorhexidine Gluconate 1 applic 09/18/16 22:00 09/20/16 22:08 Hibiclens For Decolonization - TP 1 applic HS SILVER Administration IV Flush 4 ml 09/18/16 20:31 Triple Lumen Flush IVPUSH PRN PRN Protocol Insulin Human Regular 100 100 mls @ 7 mls/hr 09/18/16 15:30 09/21/16 08:24 units/ Sodium Chloride IVPB 12 mls/hr TITR SILVER Administration Protocol 7 UNITS/HR Propofol 100 mls @ 2.722 mls/hr 09/18/16 15:00 09/21/16 09:43 Diprivan - IVPB 27.215 mls/hr TITR SILVER Administration Protocol 5 MCG/KG/MIN Famotidine/Sodium Chloride 50 mls @ 100 mls/hr 09/19/16 10:00 09/21/16 09:36 Pepcid 20 Mg Premixed Ivpb - IVPB 100 mls/hr BID SILVER Administration Fentanyl 500 mcg/ Dextrose 100 mls @ 10 mls/hr 09/19/16 01:30 09/21/16 09:31 IVPB 30 mls/hr TITR SILVER Administration 50 MCG/HR Midazolam HCl 100 mg/ Sodium 100 mls @ 1 mls/hr 09/19/16 09:30 09/21/16 06:40 Chloride IVPB 10 mls/hr TITR SILVER Administration Protocol 1 MG/HR Norepinephrine Bitartrate 8, 1,000 mls @ 37.5 mls/hr 09/19/16 11:00 09/21/16 03 :00 000 mcg/ Sodium Chloride IV 4 mcg/min TITR SILVER Titration Protocol 5 MCG/MIN Piperacillin Sod/Tazobactam Sod 50 mls @ 100 mls/hr 09/20/16 09:00 09/21/16 09: 36 Zosyn 3.375gm Ivpb (Pre-Docked) IVPB 100 mls/hr Q8H-IV SILVER Administration Protocol Thiamine HCl 200 mg/ 1,012.2 mls @ 42.175 mls/hr 09/21/16 11:00 Multivitamins/Minerals 10 ml/ IVPB 09/22/16 10:59 Folic Acid 1 mg/ Sodium ONCE ONE Chloride Dextrose/Sodium Chloride 1,000 mls @ 75 mls/hr 09/21/16 11:30 Dextrose 5%-Normal Saline+20 Meq Kcl - IV ASDIR SILVER Sodium Chloride 500 mls @ 500 mls/hr 09/21/16 11:44 Normal Saline - IV 09/21/16 12:43 ASDIR STA Mupirocin 1 applic 09/18/16 22:00 09/21/16 09:42 Bactroban Ointment (For Decolonization) - NS 09/23/16 21:59 1 applic BID SILVER Administration Pneumococcal 13-Valent Conj Vacc 0.5 ml 09/21/16 11:27 Prevnar 13 Syringe - IM 09/21/16 11:28 .ONCE ONE Potassium Chloride 40 meq 09/19/16 11:00 09/21/16 09:39 Potassium Chloride Oral Liquid PO 40 meq BID [facility] Administration Sodium Bicarbonate 50 meq 09/20/16 18:30 09/21/16 06:39 Sodium Bicarbonate 8.4% - IV 50 meq Q12H [facility] Administration Thiamine HCl 200 mg 09/19/16 10:00 09/21/16 09:36 Vitamin B1 Injection - IVPB 200 mg DAILY SILVER Administration Laboratory Tests 09/19/16 09/19/16 09/19/16 06:05 06:05 11:14 CLARICE M-James VIRGIL Screen c-ANCA Proteinase 3 (PR3) p-ANCA Atypical p-ANCA Myeloperoxidase Ab Double Strand DNA Ab Glomerular Base Memb Ab RPR Titer Nonreactive Hepatitis A Ab Total Pending Hep Bs Antigen Pending Hep Bs Antibody Pending Hep B Core Total Ab Pending HIV 1&2 Antibody Screen Negative HIV P24 Antigen Negative 09/19/16 19:30 CLARICE M-James Pending VIRGIL Screen Pending c-ANCA Pending Proteinase 3 (PR3) Pending p-ANCA Pending Atypical p-ANCA Pending Myeloperoxidase Ab Pending Double Strand DNA Ab Pending Glomerular Base Memb Ab Pending RPR Titer Hepatitis A Ab Total Hep Bs Antigen Hep Bs Antibody Hep B Core Total Ab HIV 1&2 Antibody Screen HIV P24 Antigen Impression 1. SEAN 2. metabolic acidosis 3. gross hematuria 4. DKA 5. sepsis 6. lactic acidosis 7. acute respiratory failure requiring intubation 8. etoh abuse - active 9. 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
--- NOTE | 2016-09-21 12:42 | PN ---
Progress Note (short form) - Note Progress Note: Events noted chart reviewed Still Intubated, sedated On pressure support Febrile Blood sugar fluctuating but acceptable currently Vital Signs Period Temp Pulse Resp BP Sys/Gould Pulse Ox Last 24 Hr 95.7 F-101.1 F 77-111 35-35 93-119/49-71 87-100 PE: Intubated, sedated Neck: Supple, No JVd Lungs: CTA CVS: S1S2 Abd: benign Ext: No edema Neuro: intubated, sedated CMP Sodium 153 mmol/L (136-145) H 09/21/16 09:55 Potassium 3.7 mmol/L (3.5-5.1) 09/21/16 09:55 Chloride 127 mmol/L (98-107) H 09/21/16 09:55 Carbon Dioxide 18 mmol/L (21-32) L D 09/21/16 09:55 Anion Gap 8 (8-16) 09/21/16 09:55 BUN 31 mg/dL (7-18) H 09/21/16 09:55 Creatinine 2.4 mg/dL (0.7-1.3) H 09/21/16 09:55 Creat Clearance w eGFR 30.48 (>60) 09/21/16 04:20 POC Glucometer 220.12470 UNITS (()) 09/21/16 10:34 Random Glucose 207 mg/dL (74-106) H D 09/21/16 09:55 Hemoglobin A1c % 12.9 % (4.8-6.0) H 09/19/16 06:05 Serum Osmolality 350 mosm/kg (278-305) H 09/18/16 23:30 Lactic Acid 0.535 mmol/L (0.4-2.0) 09/21/16 11:00 Calcium 7.2 mg/dL (8.5-10.1) L 09/21/16 09:55 Phosphorus 3.0 mg/dL (2.5-4.9) 09/21/16 09:55 Magnesium 1.8 mg/dL (1.8-2.4) 09/21/16 09:55 Total Bilirubin 0.6 mg/dL (0.2-1.0) D 09/21/16 04:20 Direct Bilirubin 0.2 mg/dL (0.0-0.2) D 09/19/16 03:20 AST 389 U/L (15-37) H D 09/21/16 04:20 ALT 165 U/L (12-78) H D 09/21/16 04:20 Alkaline Phosphatase 175 U/L (45-117) H D 09/21/16 04:20 LD Total 440 U/L (87-241) H D 09/21/16 11:00 Creatine Kinase 72 IU/L (39-308) 09/18/16 23:30 Troponin I 0.04 ng/ml (0.00-0.05) D 09/18/16 23:30 Total Protein 4.1 g/dl (6.4-8.2) L 09/21/16 04:20 Albumin 1.6 g/dl (3.4-5.0) L 09/21/16 04:20 Total Amylase 98 U/L (25-115) D 09/20/16 05:40 Lipase 262 U/L (73-393) 09/20/16 05:40 TSH 0.37 uIU/ml (0.358-3.74) 09/18/16 20:25 Current Medications Generic Name Dose Route Start Last Admin Trade Name Freq PRN Reason Stop Dose Admin Albuterol/Ipratropium 1 amp 09/21/16 14:00 Duoneb - NEB TIDR SILVER Chlorhexidine Gluconate 1 applic 09/18/16 22:00 09/20/16 22:08 Hibiclens For Decolonization - TP 1 applic HS SILVER Administration IV Flush 4 ml 09/18/16 20:31 Triple Lumen Flush IVPUSH PRN PRN Protocol Insulin Human Regular 100 100 mls @ 7 mls/hr 09/18/16 15:30 09/21/16 08:24 units/ Sodium Chloride IVPB 12 mls/hr TITR SILVER Administration Protocol 7 UNITS/HR Propofol 100 mls @ 2.722 mls/hr 09/18/16 15:00 09/21/16 09:43 Diprivan - IVPB 27.215 mls/hr TITR SILVER Administration Protocol 5 MCG/KG/MIN Famotidine/Sodium Chloride 50 mls @ 100 mls/hr 09/19/16 10:00 09/21/16 09:36 Pepcid 20 Mg Premixed Ivpb - IVPB 100 mls/hr BID SILVER Administration Fentanyl 500 mcg/ Dextrose 100 mls @ 10 mls/hr 09/19/16 01:30 09/21/16 09:31 IVPB 30 mls/hr TITR SILVER Administration 50 MCG/HR Midazolam HCl 100 mg/ Sodium 100 mls @ 1 mls/hr 09/19/16 09:30 09/21/16 06:40 Chloride IVPB 10 mls/hr TITR SILVER Administration Protocol 1 MG/HR Norepinephrine Bitartrate 8, 1,000 mls @ 37.5 mls/hr 09/19/16 11:00 09/21/16 03 :00 000 mcg/ Sodium Chloride IV 4 mcg/min TITR SILVER Titration Protocol 5 MCG/MIN Piperacillin Sod/Tazobactam Sod 50 mls @ 100 mls/hr 09/20/16 09:00 09/21/16 09: 36 Zosyn 3.375gm Ivpb (Pre-Docked) IVPB 100 mls/hr Q8H-IV SILVER Administration Protocol Thiamine HCl 200 mg/ 1,012.2 mls @ 42.175 mls/hr 09/21/16 11:00 Multivitamins/Minerals 10 ml/ IVPB 09/22/16 10:59 Folic Acid 1 mg/ Sodium ONCE ONE Chloride Dextrose/Sodium Chloride 1,000 mls @ 75 mls/hr 09/21/16 11:30 Dextrose 5%-Normal Saline+20 Meq Kcl - IV ASDIR SILVER Sodium Chloride 500 mls @ 500 mls/hr 09/21/16 11:44 Normal Saline - IV 09/21/16 12:43 ASDIR STA Mupirocin 1 applic 09/18/16 22:00 09/21/16 09:42 Bactroban Ointment (For Decolonization) - NS 09/23/16 21:59 1 applic BID SILVER Administration Pneumococcal Polyvalent Vaccine 0.5 ml 09/21/16 14:00 Pneumovax - IM 09/21/16 14:01 .ONCE ONE Potassium Chloride 40 meq 09/19/16 11:00 09/21/16 09:39 Potassium Chloride Oral Liquid PO 40 meq BID [facility]IL[facility] Administration Sodium Bicarbonate 50 meq 09/20/16 18:30 09/21/16 06:39 Sodium Bicarbonate 8.4% - IV 50 meq Q12H SILVER Administration Thiamine HCl 200 mg 09/19/16 10:00 09/21/16 09:36 Vitamin B1 Injection - IVPB 200 mg DAILY SILVER Administration AP: DKA: Blood sugar improving Respiratory failure ? Pancreatitis: GI consult noted Sepsis Lactic Acidosis SEAN Hypokalemia Improving acidosis Continue Insulin drip BGM Q Hr Adjust Insulin drip rate as ordered Electrolyte replacement as necessary Pressure support IV abx Awaiting CT abd
--- NOTE | 2016-09-21 13:48 | CONSULT ---
Consult - text type - Consultation Consultation Note: Neurology The patient is a 25 year old male, with a significant past medical history of asthma, who presented to the emergency department several days ago for altered mental status. Reportedly, the patient recently returned from [place] and stated he was not feeling well, but could not localize his symptoms. The patient has a history of cocaine use. Spoke to resident and the patient has had elevated liver enzymes, also with DKA, has been having fevers, underwent spinal tap with RBC of 70,000 and 30,000 with elevated WBC and elevated glucose and protein. Has not had any imaging of head and MRI would difficult as he is intubated on mechanical ventilation though he is overbreathing the vent. Active Medications Albuterol/Ipratropium (Duoneb -) 1 amp NEB TIDR SILVER Chlorhexidine Gluconate (Hibiclens For Decolonization -) 1 applic TP HS [facility]IL[facility] Last Admin: 09/20/16 22:08 Dose: 1 applic IV Flush (Triple Lumen Flush) 4 ml IVPUSH PRN PRN PRN Reason: Protocol Insulin Human Regular 100 (units/ Sodium Chloride) 100 mls @ 7 mls/hr IVPB TITR SILVER; 7 UNITS/HR PRN Reason: Protocol Last Admin: 09/21/16 08:24 Dose: 12 mls/hr Propofol (Diprivan -) 100 mls @ 2.722 mls/hr IVPB TITR SILVER; 5 MCG/KG/MIN PRN Reason: Protocol Last Admin: 09/21/16 09:43 Dose: 27.215 mls/hr Famotidine/Sodium Chloride (Pepcid 20 Mg Premixed Ivpb -) 50 mls @ 100 mls/hr IVPB BID [facility] Last Admin: 09/21/16 09:36 Dose: 100 mls/hr Fentanyl 500 mcg/ Dextrose 100 mls @ 10 mls/hr IVPB TITR SILVER PRN Reason: 50 MCG/HR Last Admin: 09/21/16 09:31 Dose: 30 mls/hr Midazolam HCl 100 mg/ Sodium (Chloride) 100 mls @ 1 mls/hr IVPB TITR SILVER; 1 MG/ HR PRN Reason: Protocol Last Admin: 09/21/16 06:40 Dose: 10 mls/hr Norepinephrine Bitartrate 8, (000 mcg/ Sodium Chloride) 1,000 mls @ 37.5 mls/ hr IV TITR SILVER; 5 MCG/MIN PRN Reason: Protocol Last Titration: 09/21/16 03:00 Dose: 4 mcg/min Piperacillin Sod/Tazobactam Sod (Zosyn 3.375gm Ivpb (Pre-Docked)) 50 mls @ 100 mls/hr IVPB Q8H-IV SILVER PRN Reason: Protocol Last Admin: 09/21/16 09:36 Dose: 100 mls/hr Thiamine HCl 200 mg/Multivitamins/Minerals 10 ml/Folic Acid 1 mg/ Sodium Chloride 1,012.2 mls @ 42.175 mls/hr IVPB ONCE ONE Stop: 09/22/16 10:59 Last Admin: 09/21/16 13:19 Dose: 42.175 mls/hr Dextrose/Sodium Chloride (Dextrose 5%-Normal Saline+20 Meq Kcl -) 1,000 mls @ 75 mls/hr IV ASDIR SILVER Mupirocin (Bactroban Ointment (For Decolonization) -) 1 applic NS BID [facility] Stop: 09/23/16 21:59 Last Admin: 09/21/16 09:42 Dose: 1 applic Pneumococcal Polyvalent Vaccine (Pneumovax -) 0.5 ml IM .ONCE ONE Stop: 09/21/16 14:01 Potassium Chloride (Potassium Chloride Oral Liquid) 40 meq PO BID [facility] Last Admin: 09/21/16 09:39 Dose: 40 meq Sodium Bicarbonate (Sodium Bicarbonate 8.4% -) 50 meq IV Q12H [facility] Last Admin: 09/21/16 06:39 Dose: 50 meq Thiamine HCl (Vitamin B1 Injection -) 200 mg IVPB DAILY [facility] Last Admin: 09/21/16 09:36 Dose: 200 mg *Physical Exam GENERAL: Difficult to arouse even with painful stimuli HEAD: No signs of trauma EYES: Pupils small but reactive, EOMI, sclera anicteric, conjunctiva clear ENT: Auricles normal inspection, hearing grossly normal, nares patent, oropharynx clear without exudates. Moist mucosa NECK: Normal ROM, supple, no lymphadenopathy, JVD, or masses LUNGS: Respiration is kuz-mal. No wheezes, and no crackles HEART: Regular rate and rhythm, normal S1 and S2, no murmurs, rubs or gallops ABDOMEN: Tender and slightly firm. Normoactive bowel sounds. No guarding, no rebound. No masses EXTREMITIES: Normal range of motion, no edema. No clubbing or cyanosis. No cords, erythema, or tenderness NEUROLOGICAL: Cranial nerves II through XII grossly intact. Normal speech, normal gait SKIN: Mottled and cool to the touch. Dry, normal turgor, no rashes or lesions noted. CBCD WBC 6.0 K/mm3 (4.0-10.0) D 09/21/16 04:20 RBC 2.93 M/mm3 (4.00-5.60) L 09/21/16 04:20 Hgb 9.3 GM/dL (11.7-16.9) L 09/21/16 04:20 Hct 26.2 % (35.4-49) L 09/21/16 04:20 MCV 89.5 fl (80-96) 09/21/16 04:20 MCHC 35.6 g/dl (32.0-35.9) 09/21/16 04:20 RDW 14.6 % (11.9-15.9) 09/21/16 04:20 Plt Count 90 K/MM3 (134-434) L D 09/21/16 04:20 MPV 11.2 fl (7.5-11.1) H 09/21/16 04:20 CMP Sodium 153 mmol/L (136-145) H 09/21/16 09:55 Potassium 3.7 mmol/L (3.5-5.1) 09/21/16 09:55 Chloride 127 mmol/L (98-107) H 09/21/16 09:55 Carbon Dioxide 18 mmol/L (21-32) L D 09/21/16 09:55 Anion Gap 8 (8-16) 09/21/16 09:55 BUN 31 mg/dL (7-18) H 09/21/16 09:55 Creatinine 2.4 mg/dL (0.7-1.3) H 09/21/16 09:55 Creat Clearance w eGFR 30.48 (>60) 09/21/16 04:20 Calcium 7.2 mg/dL (8.5-10.1) L 09/21/16 09:55 Total Bilirubin 0.6 mg/dL (0.2-1.0) D 09/21/16 04:20 AST 389 U/L (15-37) H D 09/21/16 04:20 ALT 165 U/L (12-78) H D 09/21/16 04:20 Alkaline Phosphatase 175 U/L (45-117) H D 09/21/16 04:20 Total Protein 4.1 g/dl (6.4-8.2) L 09/21/16 04:20 Albumin 1.6 g/dl (3.4-5.0) L 09/21/16 04:20 Medical Decision Making 25 year old male, with a significant past medical history of asthma, who presented to the emergency department several days ago for altered mental status. Reportedly, the patient recently returned from [place] and stated he was not feeling well, but could not localize his symptoms. The patient has a history of cocaine use. Spoke to resident and the patient has had elevated liver enzymes, also with DKA, has been having fevers, underwent spinal tap with RBC of 70,000 and 30,000 with elevated WBC and elevated glucose and protein. Has not had any imaging of head and MRI would difficult as he is intubated on mechanical ventilation though he is overbreathing the vent. Will need to start with CT head. Continue aggresive medical mgmt. Mention of jerking activity when sedation weans which may be 2/2 to withdrawal. Continue monitoring labs and CSF cultures. Seems to be toxic metabolic process and hopefully reversible. Will follow closely.
[2016-09-21] MEDS: ALBUTEROL SO4 2.5/IPRATROPIUM 0.5 INH SOL 3 ML VIAL.NEB. NEB SCH ×2 (13:59→22:59)
[2016-09-21] MEDS ORDERED: PNEUMOCOCCAL 23 VACCINE 0.5 ML VIAL IM ONE (14:00)
--- NOTE | 2016-09-21 14:54 | PN ---
Physical Exam: SUBJECTIVE: Patient seen and examined at bed in ICU, family at bed side. patient intubated and sedated on levophed gtt. Becomes tremulous when sedation is off. patient for CT head and abd today. Remains intubated, sedated Fever curve trending down. leukocytosis resolved, tachy cardic, fever last night, OBJECTIVE: Vital Signs Period Temp Pulse Resp BP Sys/Gould Pulse Ox Last 24 Hr 95.7 F-101.1 F 77-111 35-35 93-119/49-71 87-100 GENERAL: intubated, sedated HEAD: Normal with no signs of trauma. EYES: PERRL, extraocular movements intact, sclera anicteric, conjunctiva clear. No ptosis. ENT: Ears normal, nares patent, oropharynx clear without exudates, moist mucous membranes. NECK: Trachea midline, full range of motion, supple. LUNGS: scattered rhonchi, no wheezes, no crackles, no accessory muscle use. HEART: Regular rate and rhythm, S1, S2 without murmur, rub or gallop. ABDOMEN: Soft, nontender, nondistended, normoactive bowel sounds, no guarding, no rebound, no hepatosplenomegaly, no masses appreciated. swollen erthymatus excoriation of scrotum. EXTREMITIES: 2+ pulses, warm, well-perfused, no edema. NEUROLOGICAL: Cranial nerves II through XII grossly intact. Normal speech, gait not observed. PSYCH: Normal mood, normal affect. SKIN: dark purple/black rectangular patch right forearm 2 1/2 cm x 5cm with erythematus border. Laboratory Results - last 24 hr 09/18/16 09/18/16 09/18/16 17:43 19:57 20:49 WBC RBC Hgb Hct MCV MCHC RDW Plt Count MPV Neutrophils % Lymphocytes % Monocytes % Eosinophils % Basophils % Retic Count INR PTT (Actin FS) Fibrinogen Fibrin Degrad Products Puncture Site ABG pH ABG pCO2 at Pt Temp ABG pO2 at Pt Temp ABG HCO3 ABG O2 Sat (Measured) ABG O2 Content ABG Base Excess Dennis Test O2 Delivery Device Oxygen Flow Rate Vent Mode Vent Rate Mechanical Rate PEEP Pressure Support Vent Sodium Potassium Chloride Carbon Dioxide Anion Gap BUN Creatinine Creat Clearance w eGFR POC Glucometer > 400 > 400 > 400 Random Glucose Lactic Acid Calcium Phosphorus Magnesium Total Bilirubin AST ALT Alkaline Phosphatase LD Total Total Protein Albumin 09/18/16 09/19/16 09/19/16 22:24 00:01 05:55 WBC RBC Hgb Hct MCV MCHC RDW Plt Count MPV Neutrophils % Lymphocytes % Monocytes % Eosinophils % Basophils % Retic Count INR PTT (Actin FS) Fibrinogen Fibrin Degrad Products Puncture Site ABG pH ABG pCO2 at Pt Temp ABG pO2 at Pt Temp ABG HCO3 ABG O2 Sat (Measured) ABG O2 Content ABG Base Excess Dennis Test O2 Delivery Device Oxygen Flow Rate Vent Mode Vent Rate Mechanical Rate PEEP Pressure Support Vent Sodium Potassium Chloride Carbon Dioxide Anion Gap BUN Creatinine Creat Clearance w eGFR POC Glucometer > 400 > 400 > 400 Random Glucose Lactic Acid Calcium Phosphorus Magnesium Total Bilirubin AST ALT Alkaline Phosphatase LD Total Total Protein Albumin 09/19/16 09/19/16 09/19/16 06:54 08:04 10:16 WBC RBC Hgb Hct MCV MCHC RDW Plt Count MPV Neutrophils % Lymphocytes % Monocytes % Eosinophils % Basophils % Retic Count INR PTT (Actin FS) Fibrinogen Fibrin Degrad Products Puncture Site ABG pH ABG pCO2 at Pt Temp ABG pO2 at Pt Temp ABG HCO3 ABG O2 Sat (Measured) ABG O2 Content ABG Base Excess Dennis Test O2 Delivery Device Oxygen Flow Rate Vent Mode Vent Rate Mechanical Rate PEEP Pressure Support Vent Sodium Potassium Chloride Carbon Dioxide Anion Gap BUN Creatinine Creat Clearance w eGFR POC Glucometer > 400 > 400 > 400 Random Glucose Lactic Acid Calcium Phosphorus Magnesium Total Bilirubin AST ALT Alkaline Phosphatase LD Total Total Protein Albumin 09/19/16 09/19/16 09/19/16 12:23 12:27 15:59 WBC RBC Hgb Hct MCV MCHC RDW Plt Count MPV Neutrophils % Lymphocytes % Monocytes % Eosinophils % Basophils % Retic Count INR PTT (Actin FS) Fibrinogen Fibrin Degrad Products Puncture Site ABG pH ABG pCO2 at Pt Temp ABG pO2 at Pt Temp ABG HCO3 ABG O2 Sat (Measured) ABG O2 Content ABG Base Excess Dennis Test O2 Delivery Device Oxygen Flow Rate Vent Mode Vent Rate Mechanical Rate PEEP Pressure Support Vent Sodium Potassium Chloride Carbon Dioxide Anion Gap BUN Creatinine Creat Clearance w eGFR POC Glucometer 78.05702 226.93470 > 400 Random Glucose Lactic Acid Calcium Phosphorus Magnesium Total Bilirubin AST ALT Alkaline Phosphatase LD Total Total Protein Albumin 09/19/16 09/19/16 09/19/16 20:05 21:08 22:14 WBC RBC Hgb Hct MCV MCHC RDW Plt Count MPV Neutrophils % Lymphocytes % Monocytes % Eosinophils % Basophils % Retic Count INR PTT (Actin FS) Fibrinogen Fibrin Degrad Products Puncture Site ABG pH ABG pCO2 at Pt Temp ABG pO2 at Pt Temp ABG HCO3 ABG O2 Sat (Measured) ABG O2 Content ABG Base Excess Dennis Test O2 Delivery Device Oxygen Flow Rate Vent Mode Vent Rate Mechanical Rate PEEP Pressure Support Vent Sodium Potassium Chloride Carbon Dioxide Anion Gap BUN Creatinine Creat Clearance w eGFR POC Glucometer > 400 > 400 > 400 Random Glucose Lactic Acid Calcium Phosphorus Magnesium Total Bilirubin AST ALT Alkaline Phosphatase LD Total Total Protein Albumin 09/19/16 09/20/16 09/20/16 23:07 00:25 14:26 WBC RBC Hgb Hct MCV MCHC RDW Plt Count MPV Neutrophils % Lymphocytes % Monocytes % Eosinophils % Basophils % Retic Count INR PTT (Actin FS) Fibrinogen Fibrin Degrad Products Puncture Site ABG pH ABG pCO2 at Pt Temp ABG pO2 at Pt Temp ABG HCO3 ABG O2 Sat (Measured) ABG O2 Content ABG Base Excess Dennis Test O2 Delivery Device Oxygen Flow Rate Vent Mode Vent Rate Mechanical Rate PEEP Pressure Support Vent Sodium Potassium Chloride Carbon Dioxide Anion Gap BUN Creatinine Creat Clearance w eGFR POC Glucometer > 400 > 400 > 400 Random Glucose Lactic Acid Calcium Phosphorus Magnesium Total Bilirubin AST ALT Alkaline Phosphatase LD Total Total Protein Albumin 09/20/16 09/20/16 09/20/16 15:31 16:46 17:42 WBC RBC Hgb Hct MCV MCHC RDW Plt Count MPV Neutrophils % Lymphocytes % Monocytes % Eosinophils % Basophils % Retic Count INR PTT (Actin FS) Fibrinogen Fibrin Degrad Products Puncture Site ABG pH ABG pCO2 at Pt Temp ABG pO2 at Pt Temp ABG HCO3 ABG O2 Sat (Measured) ABG O2 Content ABG Base Excess Dennis Test O2 Delivery Device Oxygen Flow Rate Vent Mode Vent Rate Mechanical Rate PEEP Pressure Support Vent Sodium Potassium Chloride Carbon Dioxide Anion Gap BUN Creatinine Creat Clearance w eGFR POC Glucometer > 400 > 400 > 400 Random Glucose Lactic Acid Calcium Phosphorus Magnesium Total Bilirubin AST ALT Alkaline Phosphatase LD Total Total Protein Albumin 09/20/16 09/20/16 09/20/16 18:40 19:40 19:40 WBC RBC Hgb Hct MCV MCHC RDW Plt Count MPV Neutrophils % Lymphocytes % Monocytes % Eosinophils % Basophils % Retic Count INR PTT (Actin FS) Fibrinogen Fibrin Degrad Products Puncture Site ABG pH ABG pCO2 at Pt Temp ABG pO2 at Pt Temp ABG HCO3 ABG O2 Sat (Measured) ABG O2 Content ABG Base Excess Dennis Test O2 Delivery Device Oxygen Flow Rate Vent Mode Vent Rate Mechanical Rate PEEP Pressure Support Vent Sodium 149 H Potassium 5.7 H D Chloride 125 H Carbon Dioxide 11 L Anion Gap 13 BUN 29 H Creatinine 2.3 H Creat Clearance w eGFR POC Glucometer > 400 Random Glucose 446 H* D Cancelled Lactic Acid Calcium 7.0 L Phosphorus 3.3 Magnesium 1.9 Total Bilirubin AST ALT Alkaline Phosphatase LD Total Total Protein Albumin 09/20/16 09/20/16 09/20/16 19:44 21:16 22:12 WBC RBC Hgb Hct MCV MCHC RDW Plt Count MPV Neutrophils % Lymphocytes % Monocytes % Eosinophils % Basophils % Retic Count INR PTT (Actin FS) Fibrinogen Fibrin Degrad Products Puncture Site ABG pH ABG pCO2 at Pt Temp ABG pO2 at Pt Temp ABG HCO3 ABG O2 Sat (Measured) ABG O2 Content ABG Base Excess Dennis Test O2 Delivery Device Oxygen Flow Rate Vent Mode Vent Rate Mechanical Rate PEEP Pressure Support Vent Sodium Potassium Chloride Carbon Dioxide Anion Gap BUN Creatinine Creat Clearance w eGFR POC Glucometer > 400 > 400 > 400 Random Glucose Lactic Acid Calcium Phosphorus Magnesium Total Bilirubin AST ALT Alkaline Phosphatase LD Total Total Protein Albumin 09/20/16 09/20/16 09/21/16 23:09 23:30 00:00 WBC RBC Hgb Hct MCV MCHC RDW Plt Count MPV Neutrophils % Lymphocytes % Monocytes % Eosinophils % Basophils % Retic Count INR PTT (Actin FS) Fibrinogen Fibrin Degrad Products Puncture Site ABG pH ABG pCO2 at Pt Temp ABG pO2 at Pt Temp ABG HCO3 ABG O2 Sat (Measured) ABG O2 Content ABG Base Excess Dennis Test O2 Delivery Device Oxygen Flow Rate Vent Mode Vent Rate Mechanical Rate PEEP Pressure Support Vent Sodium 148 H Potassium 5.6 H Chloride 123 H Carbon Dioxide 12 L Anion Gap 13 BUN 31 H Creatinine 2.4 H Creat Clearance w eGFR POC Glucometer > 400 > 400 Random Glucose 469 H* Lactic Acid Calcium 7.0 L Phosphorus 3.1 Magnesium 1.9 Total Bilirubin AST ALT Alkaline Phosphatase LD Total Total Protein Albumin 09/21/16 09/21/16 09/21/16 01:06 02:00 02:01 WBC RBC Hgb Hct MCV MCHC RDW Plt Count MPV Neutrophils % Lymphocytes % Monocytes % Eosinophils % Basophils % Retic Count INR PTT (Actin FS) Fibrinogen Fibrin Degrad Products Puncture Site ABG pH ABG pCO2 at Pt Temp ABG pO2 at Pt Temp ABG HCO3 ABG O2 Sat (Measured) ABG O2 Content ABG Base Excess Dennis Test O2 Delivery Device Oxygen Flow Rate Vent Mode Vent Rate Mechanical Rate PEEP Pressure Support Vent Sodium Potassium Chloride Carbon Dioxide Anion Gap BUN Creatinine Creat Clearance w eGFR POC Glucometer > 400 > 400 Random Glucose 396 H* Lactic Acid Calcium Phosphorus Magnesium Total Bilirubin AST ALT Alkaline Phosphatase LD Total Total Protein Albumin 09/21/16 09/21/16 09/21/16 03:04 04:14 04:20 WBC 6.0 D RBC 2.93 L Hgb 9.3 L Hct 26.2 L MCV 89.5 MCHC 35.6 RDW 14.6 Plt Count 90 L D MPV 11.2 H Neutrophils % 79.9 Lymphocytes % 16.4 D Monocytes % 2.3 L Eosinophils % 0.9 D Basophils % 0.5 Retic Count INR PTT (Actin FS) Fibrinogen Fibrin Degrad Products Puncture Site ABG pH ABG pCO2 at Pt Temp ABG pO2 at Pt Temp ABG HCO3 ABG O2 Sat (Measured) ABG O2 Content ABG Base Excess Dennis Test O2 Delivery Device Oxygen Flow Rate Vent Mode Vent Rate Mechanical Rate PEEP Pressure Support Vent Sodium Potassium Chloride Carbon Dioxide Anion Gap BUN Creatinine Creat Clearance w eGFR POC Glucometer > 400 > 400 Random Glucose Lactic Acid Calcium Phosphorus Magnesium Total Bilirubin AST ALT Alkaline Phosphatase LD Total Total Protein Albumin 09/21/16 09/21/16 09/21/16 04:20 04:20 05:05 WBC RBC Hgb Hct MCV MCHC RDW Plt Count MPV Neutrophils % Lymphocytes % Monocytes % Eosinophils % Basophils % Retic Count INR 1.12 PTT (Actin FS) 49.3 H D Fibrinogen Fibrin Degrad Products Puncture Site ABG pH ABG pCO2 at Pt Temp ABG pO2 at Pt Temp ABG HCO3 ABG O2 Sat (Measured) ABG O2 Content ABG Base Excess Dennis Test O2 Delivery Device Oxygen Flow Rate Vent Mode Vent Rate Mechanical Rate PEEP Pressure Support Vent Sodium 152 H Potassium 3.7 D Chloride 127 H Carbon Dioxide 14 L Anion Gap 11 BUN 31 H Creatinine 2.6 H Creat Clearance w eGFR 30.48 POC Glucometer 377.90062 Random Glucose 307 H* D Lactic Acid Calcium 7.0 L Phosphorus 2.5 Magnesium 1.9 Total Bilirubin 0.6 D AST 389 H D ALT 165 H D Alkaline Phosphatase 175 H D LD Total Total Protein 4.1 L Albumin 1.6 L 09/21/16 09/21/16 09/21/16 06:12 07:01 07:15 WBC RBC Hgb Hct MCV MCHC RDW Plt Count MPV Neutrophils % Lymphocytes % Monocytes % Eosinophils % Basophils % Retic Count INR PTT (Actin FS) Fibrinogen Fibrin Degrad Products Puncture Site Right radial ABG pH 7.37 ABG pCO2 at Pt Temp 24.4 L ABG pO2 at Pt Temp 180.0 H* ABG HCO3 13.8 L* ABG O2 Sat (Measured) 97.7 ABG O2 Content 11.9 L ABG Base Excess -10.0 L Dennis Test Positive O2 Delivery Device Vent Oxygen Flow Rate 40 Vent Mode A/c Vent Rate 35 Mechanical Rate Yes PEEP 5.0 Pressure Support Vent 450 Sodium Potassium Chloride Carbon Dioxide Anion Gap BUN Creatinine Creat Clearance w eGFR POC Glucometer 365.70223 347.98822 Random Glucose Lactic Acid Calcium Phosphorus Magnesium Total Bilirubin AST ALT Alkaline Phosphatase LD Total Total Protein Albumin 09/21/16 09/21/16 09/21/16 07:47 08:44 09:55 WBC RBC Hgb Hct MCV MCHC RDW Plt Count MPV Neutrophils % Lymphocytes % Monocytes % Eosinophils % Basophils % Retic Count INR PTT (Actin FS) Fibrinogen Fibrin Degrad Products Puncture Site ABG pH ABG pCO2 at Pt Temp ABG pO2 at Pt Temp ABG HCO3 ABG O2 Sat (Measured) ABG O2 Content ABG Base Excess Dennis Test O2 Delivery Device Oxygen Flow Rate Vent Mode Vent Rate Mechanical Rate PEEP Pressure Support Vent Sodium 153 H Potassium 3.7 Chloride 127 H Carbon Dioxide 18 L D Anion Gap 8 BUN 31 H Creatinine 2.4 H Creat Clearance w eGFR POC Glucometer 321.52947 270.21503 Random Glucose 207 H D Lactic Acid Calcium 7.2 L Phosphorus 3.0 Magnesium 1.8 Total Bilirubin AST ALT Alkaline Phosphatase LD Total Total Protein Albumin 09/21/16 09/21/16 09/21/16 10:34 11:00 11:00 WBC RBC Hgb Hct MCV MCHC RDW Plt Count MPV Neutrophils % Lymphocytes % Monocytes % Eosinophils % Basophils % Retic Count 2.65 H INR PTT (Actin FS) Fibrinogen 295.0 D Fibrin Degrad Products Less than 10 Puncture Site ABG pH ABG pCO2 at Pt Temp ABG pO2 at Pt Temp ABG HCO3 ABG O2 Sat (Measured) ABG O2 Content ABG Base Excess Dennis Test O2 Delivery Device Oxygen Flow Rate Vent Mode Vent Rate Mechanical Rate PEEP Pressure Support Vent Sodium Potassium Chloride Carbon Dioxide Anion Gap BUN Creatinine Creat Clearance w eGFR POC Glucometer 220.13620 Random Glucose Lactic Acid Calcium Phosphorus Magnesium Total Bilirubin AST ALT Alkaline Phosphatase LD Total Total Protein Albumin 09/21/16 09/21/16 09/21/16 11:00 11:00 11:44 WBC RBC Hgb Hct MCV MCHC RDW Plt Count MPV Neutrophils % Lymphocytes % Monocytes % Eosinophils % Basophils % Retic Count INR PTT (Actin FS) Fibrinogen Fibrin Degrad Products Puncture Site ABG pH ABG pCO2 at Pt Temp ABG pO2 at Pt Temp ABG HCO3 ABG O2 Sat (Measured) ABG O2 Content ABG Base Excess Dennis Test O2 Delivery Device Oxygen Flow Rate Vent Mode Vent Rate Mechanical Rate PEEP Pressure Support Vent Sodium Potassium Chloride Carbon Dioxide Anion Gap BUN Creatinine Creat Clearance w eGFR POC Glucometer 225.81583 Random Glucose Lactic Acid 0.535 Calcium Phosphorus Magnesium Total Bilirubin AST ALT Alkaline Phosphatase LD Total 440 H D Total Protein Albumin 09/21/16 13:00 WBC RBC Hgb Hct MCV MCHC RDW Plt Count MPV Neutrophils % Lymphocytes % Monocytes % Eosinophils % Basophils % Retic Count INR PTT (Actin FS) Fibrinogen Fibrin Degrad Products Puncture Site ABG pH ABG pCO2 at Pt Temp ABG pO2 at Pt Temp ABG HCO3 ABG O2 Sat (Measured) ABG O2 Content ABG Base Excess Dennis Test O2 Delivery Device Oxygen Flow Rate Vent Mode Vent Rate Mechanical Rate PEEP Pressure Support Vent Sodium Potassium Chloride Carbon Dioxide Anion Gap BUN Creatinine Creat Clearance w eGFR POC Glucometer 262.43145 Random Glucose Lactic Acid Calcium Phosphorus Magnesium Total Bilirubin AST ALT Alkaline Phosphatase LD Total Total Protein Albumin Active Medications Generic Name Dose Route Start Last Admin Trade Name Freq PRN Reason Stop Dose Admin Albuterol/Ipratropium 1 amp 09/21/16 14:00 Duoneb - NEB TIDR SILVER Chlorhexidine Gluconate 1 applic 09/18/16 22:00 09/20/16 22:08 Hibiclens For Decolonization - TP 1 applic HS SILVER Administration IV Flush 4 ml 09/18/16 20:31 Triple Lumen Flush IVPUSH PRN PRN Protocol Insulin Human Regular 100 100 mls @ 7 mls/hr 09/18/16 15:30 09/21/16 08:24 units/ Sodium Chloride IVPB 12 mls/hr TITR SILVER Administration Protocol 7 UNITS/HR Propofol 100 mls @ 2.722 mls/hr 09/18/16 15:00 09/21/16 09:43 Diprivan - IVPB 27.215 mls/hr TITR SILVER Administration Protocol 5 MCG/KG/MIN Famotidine/Sodium Chloride 50 mls @ 100 mls/hr 09/19/16 10:00 09/21/16 09:36 Pepcid 20 Mg Premixed Ivpb - IVPB 100 mls/hr BID SILVER Administration Fentanyl 500 mcg/ Dextrose 100 mls @ 10 mls/hr 09/19/16 01:30 09/21/16 09:31 IVPB 30 mls/hr TITR SILVER Administration 50 MCG/HR Midazolam HCl 100 mg/ Sodium 100 mls @ 1 mls/hr 09/19/16 09:30 09/21/16 06:40 Chloride IVPB 10 mls/hr TITR SILVER Administration Protocol 1 MG/HR Norepinephrine Bitartrate 8, 1,000 mls @ 37.5 mls/hr 09/19/16 11:00 09/21/16 03 :00 000 mcg/ Sodium Chloride IV 4 mcg/min TITR SILVER Titration Protocol 5 MCG/MIN Piperacillin Sod/Tazobactam Sod 50 mls @ 100 mls/hr 09/20/16 09:00 09/21/16 09: 36 Zosyn 3.375gm Ivpb (Pre-Docked) IVPB 100 mls/hr Q8H-IV SILVER Administration Protocol Thiamine HCl 200 mg/ 1,012.2 mls @ 42.175 mls/hr 09/21/16 11:00 09/21/16 13:19 Multivitamins/Minerals 10 ml/ IVPB 09/22/16 10:59 42.175 mls/hr Folic Acid 1 mg/ Sodium ONCE ONE Administration Chloride Dextrose/Sodium Chloride 1,000 mls @ 75 mls/hr 09/21/16 11:30 Dextrose 5%-Normal Saline+20 Meq Kcl - IV ASDIR SILVER Mupirocin 1 applic 09/18/16 22:00 09/21/16 09:42 Bactroban Ointment (For Decolonization) - NS 09/23/16 21:59 1 applic BID SILVER Administration Pneumococcal Polyvalent Vaccine 0.5 ml 09/21/16 14:00 Pneumovax - IM 09/21/16 14:01 .ONCE ONE Potassium Chloride 40 meq 09/19/16 11:00 09/21/16 09:39 Potassium Chloride Oral Liquid PO 40 meq BID SILVER Administration Thiamine HCl 200 mg 09/19/16 10:00 09/21/16 09:36 Vitamin B1 Injection - IVPB 200 mg DAILY SILVER Administration ASSESSMENT/PLAN: 25M found down with no PMH of DM presents to the ED unresponsive in DKA and sepsis shock. Leukocytosis resolved, tachy cardic, fever last night, on levophed.lactic acidosis trending down. Diabetic ketoacidosis: initial presentation of DKA from untreated type 1 DM d/c bicarb gtt per dr. Patton D5w 20Kcl 75ml/hr cont insulin gtt, gap closed BMP q4h HbA1C 12.9 Septic Shock: leukocytosis resolved, tachy cardic, fever last night, on levophed. lactic acidosis trending down. acute kidney injury Continue Levophed wean as tolerated. - keep CVP 8-12 if needed IVNS 500cc Bolus Titrate pressors to maintain MAP >65 Continue empiric Zosyn source of infection unknown BCx no growth so far UCx-no growth final continue Zosyn f/u CSF cultures patient is having multi-organ failure Acute respiratory failure: 2/2 to DKA, intubated and sedated not a candidate for weaning at this time due to sedation requirements Ventilatory support ABG improved when on light sedation patient will do Head CT today as patient had a blood LP tap spontaneous breathing trials as tolerated when mental status improved r/o Acute Pancreatitis CT abd today toxic metabolic encephalopathy - Possible seizure activity when sedation is lightened , in light of history patient drinks 8 to 10 beers daily. possible withdrawals f/u monitoring labs and CSF cultures. Thrombocytopenia: possible related to HIT Stop heparin sq sent HIT Ab Send serotonin release assay Hematology consult-Dr. Fernandez Send LDH haptoglobin Possible DIC: send Fibrin split products send fibrinogen Coags WNL lactic acidosis:resolved 2/2 DKA and dehydration, hypovolemia trend lactic acid IVF Alcohol abuse: thiamine and folate on versed Polysubstance Abuse: monitor for withdrawl Metabolic acidosis: resolved 2/2 to DKA, gap closed, will continue insulin drip d/c bicarb Acute kidney injury: cr worsend today. most likely 2/2 prerenal azotemia IVF follow kidney function Transaminitis: questionable history of Liver disease: LFTs significantly increased, possibly secondary to shock fatty liver on US: alcoholism vs obesity IVF GI consulted CT Abdomen pelvis with po contrast can not give IV contrast as patient is in renal failure. patient has some blood in his stool but not melena per medical chart possible patient is having a hemorrhagic pancreatitis-will f/u CTAP Hematuria:resolved, 2/2 traumatic arnold insertion Hypernatremia: patient initially has pseudohyponatremia from hyperglycemia as corrected sodium was normal now patient is hypernatremic switched to D5W 75cc/hr continue free water through NGT hypernatrmia: free water through NGT 250ml/hr q6h per Dr. Espinoza 1/2 NS @ 75ml/hr Asthma: duonebs intubated at this time FEN: D5w @ 75ml/hr/ and free water through NGT replete potassium for hypokalemia while on insulin gtt keep K+>4.0. hypernatremia see above for plan NPO - enteral feeds PPx: SCDs stop HSQ for possible HIT Pepcid No PT consult at this time dispo: continue ICU monitoring Visit type - Emergency Visit Emergency Visit: Yes ED Registration Date: 09/18/16 Care time: The patient presented to the Emergency Department on the above date and was hospitalized for further evaluation of their emergent condition. - New Patient This patient is new to me today: No - Critical Care Critical Care patient: Yes Total Critical Care Time (in minutes): 53 Critical Care Statement: The care of this patient involved high complexity decision making to prevent further life threatening deterioration of the patient 's condition and/or to evalute & treat vital organ system(s) failure or risk of failure.
[2016-09-21] MEDS ORDERED: DEXTROSE 5%-WATER - 1,000 ML with POTASSIUM CHLORIDE 20 MEQ IVPB SCH (15:00)
--- NOTE | 2016-09-21 15:37 | CONSULT ---
Consult - text type - Consultation Consultation Note: The patient is a 25 year old male, with a significant past medical history of asthma, who presented to the emergency department with altered mental status . h /o drug abuse and reports h/o cocaine use. Allergies: None reported. Past Surgical History: None reported. Social History: Cocaine use. Non-smoker. Denies alcohol or other recreational drug use. Allergies/Adverse Reactions: Allergies Allergy/AdvReac Type Severity Reaction Status Date / Time No Known Allergies Allergy Verified 09/18/16 14:17 Home Medications: Ambulatory Orders NK [No Known Home Medication] 09/18/16 Current Medications Generic Name Dose Route Start Last Admin Trade Name Freq PRN Reason Stop Dose Admin Albuterol/Ipratropium 1 amp 09/21/16 14:00 09/21/16 13:59 Duoneb - NEB 1 amp TIDR SILVER Administration Chlorhexidine Gluconate 1 applic 09/18/16 22:00 09/20/16 22:08 Hibiclens For Decolonization - TP 1 applic HS SILVER Administration IV Flush 4 ml 09/18/16 20:31 Triple Lumen Flush IVPUSH PRN PRN Protocol Insulin Human Regular 100 100 mls @ 7 mls/hr 09/18/16 15:30 09/21/16 08:24 units/ Sodium Chloride IVPB 12 mls/hr TITR SILVER Administration Protocol 7 UNITS/HR Propofol 100 mls @ 2.722 mls/hr 09/18/16 15:00 09/21/16 14:16 Diprivan - IVPB 27.215 mls/hr TITR SILVER Administration Protocol 5 MCG/KG/MIN Famotidine/Sodium Chloride 50 mls @ 100 mls/hr 09/19/16 10:00 09/21/16 09:36 Pepcid 20 Mg Premixed Ivpb - IVPB 100 mls/hr BID SILVER Administration Fentanyl 500 mcg/ Dextrose 100 mls @ 10 mls/hr 09/19/16 01:30 09/21/16 14:16 IVPB 30 mls/hr TITR SILVER Administration 50 MCG/HR Midazolam HCl 100 mg/ Sodium 100 mls @ 1 mls/hr 09/19/16 09:30 09/21/16 06:40 Chloride IVPB 10 mls/hr TITR SILVER Administration Protocol 1 MG/HR Norepinephrine Bitartrate 8, 1,000 mls @ 37.5 mls/hr 09/19/16 11:00 09/21/16 03 :00 000 mcg/ Sodium Chloride IV 4 mcg/min TITR SILVER Titration Protocol 5 MCG/MIN Piperacillin Sod/Tazobactam Sod 50 mls @ 100 mls/hr 09/20/16 09:00 09/21/16 09: 36 Zosyn 3.375gm Ivpb (Pre-Docked) IVPB 100 mls/hr Q8H-IV SILVER Administration Protocol Thiamine HCl 200 mg/ 1,012.2 mls @ 42.175 mls/hr 09/21/16 11:00 09/21/16 13:19 Multivitamins/Minerals 10 ml/ IVPB 09/22/16 10:59 42.175 mls/hr Folic Acid 1 mg/ Sodium ONCE ONE Administration Chloride Potassium Chloride 20 meq/ 1,010 mls @ 75 mls/hr 09/21/16 15:00 Dextrose IVPB Q13H SILVER Mupirocin 1 applic 09/18/16 22:00 09/21/16 09:42 Bactroban Ointment (For Decolonization) - NS 09/23/16 21:59 1 applic BID SILVER Administration Potassium Chloride 40 meq 09/19/16 11:00 09/21/16 09:39 Potassium Chloride Oral Liquid PO 40 meq BID SILVER Administration Thiamine HCl 200 mg 09/19/16 10:00 09/21/16 09:36 Vitamin B1 Injection - IVPB 200 mg DAILY SILVER Administration Last Vital Signs Temp Pulse Resp BP Pulse Ox 99.9 F H 87 35 H 101/56 99 09/21/16 07:00 09/21/16 09:30 09/21/16 14:01 09/21/16 07:00 09/21/16 09:30 Cor: RSR, No murmurs, No gallops Lungs: Clear to P&A Abd: Soft, Normal bowel sounds, No organomegaly Ext. RUE swollen necrosis over rt. forearm Abnormal Lab Results 09/20/16 09/20/16 09/21/16 19:40 23:30 02:00 RBC Hgb Hct Plt Count MPV Monocytes % Retic Count PTT (Actin FS) ABG pCO2 at Pt Temp ABG pO2 at Pt Temp ABG HCO3 ABG O2 Content ABG Base Excess Sodium 149 H 148 H Potassium 5.7 H D 5.6 H Chloride 125 H 123 H Carbon Dioxide 11 L 12 L BUN 29 H 31 H Creatinine 2.3 H 2.4 H Random Glucose 446 H* D 469 H* 396 H* Calcium 7.0 L 7.0 L AST ALT Alkaline Phosphatase LD Total Total Protein Albumin 09/21/16 09/21/16 09/21/16 04:20 04:20 04:20 RBC 2.93 L Hgb 9.3 L Hct 26.2 L Plt Count 90 L D MPV 11.2 H Monocytes % 2.3 L Retic Count PTT (Actin FS) 49.3 H D ABG pCO2 at Pt Temp ABG pO2 at Pt Temp ABG HCO3 ABG O2 Content ABG Base Excess Sodium 152 H Potassium Chloride 127 H Carbon Dioxide 14 L BUN 31 H Creatinine 2.6 H Random Glucose 307 H* D Calcium 7.0 L AST 389 H D ALT 165 H D Alkaline Phosphatase 175 H D LD Total Total Protein 4.1 L Albumin 1.6 L 09/21/16 09/21/16 09/21/16 07:15 09:55 11:00 RBC Hgb Hct Plt Count MPV Monocytes % Retic Count 2.65 H PTT (Actin FS) ABG pCO2 at Pt Temp 24.4 L ABG pO2 at Pt Temp 180.0 H* ABG HCO3 13.8 L* ABG O2 Content 11.9 L ABG Base Excess -10.0 L Sodium 153 H Potassium Chloride 127 H Carbon Dioxide 18 L D BUN 31 H Creatinine 2.4 H Random Glucose 207 H D Calcium 7.2 L AST ALT Alkaline Phosphatase LD Total Total Protein Albumin 09/21/16 11:00 RBC Hgb Hct Plt Count MPV Monocytes % Retic Count PTT (Actin FS) ABG pCO2 at Pt Temp ABG pO2 at Pt Temp ABG HCO3 ABG O2 Content ABG Base Excess Sodium Potassium Chloride Carbon Dioxide BUN Creatinine Random Glucose Calcium AST ALT Alkaline Phosphatase LD Total 440 H D Total Protein Albumin A:P 25 y/o patient with Multiorgan failure DKA Fever ? aspiration related SEAN polySubstance abuse Recent travel [place] Elevated LFTs thrombocytopeniA Thrombocytopenia : due to ongoing systemic process ? infection ? drug induced Time frame and clinical scenario makes it unlikely to be HIT will monitor Low fibrinogen at presentaion : ? DIC Improved at this time repeat coags CT head--no acute pathology skin necrosis--? DIC will check duplex of upper/lower ext. will monitor
--- NOTE | 2016-09-21 17:37 | PN ---
Teaching Attending Note Name of Resident: Danny Shine ATTENDING PHYSICIAN STATEMENT I saw and evaluated the patient. I reviewed the resident's note and discussed the case with the resident. I agree with the resident's findings and plan as documented. Patient continues to be intubated and sedated in ICU, continues to be on pressors Vital Signs Temperature 99.9 F H 09/21/16 07:00 Pulse Rate 87 09/21/16 09:30 Respiratory Rate 35 H 09/21/16 14:01 Blood Pressure 101/56 09/21/16 07:00 O2 Sat by Pulse Oximetry (%) 99 09/21/16 09:30 CBCD WBC 6.0 K/mm3 (4.0-10.0) D 09/21/16 04:20 RBC 2.93 M/mm3 (4.00-5.60) L 09/21/16 04:20 Hgb 9.3 GM/dL (11.7-16.9) L 09/21/16 04:20 Hct 26.2 % (35.4-49) L 09/21/16 04:20 MCV 89.5 fl (80-96) 09/21/16 04:20 MCHC 35.6 g/dl (32.0-35.9) 09/21/16 04:20 RDW 14.6 % (11.9-15.9) 09/21/16 04:20 Plt Count 90 K/MM3 (134-434) L D 09/21/16 04:20 MPV 11.2 fl (7.5-11.1) H 09/21/16 04:20 CMP Sodium 153 mmol/L (136-145) H 09/21/16 09:55 Potassium 3.7 mmol/L (3.5-5.1) 09/21/16 09:55 Chloride 127 mmol/L (98-107) H 09/21/16 09:55 Carbon Dioxide 18 mmol/L (21-32) L D 09/21/16 09:55 Anion Gap 8 (8-16) 09/21/16 09:55 BUN 31 mg/dL (7-18) H 09/21/16 09:55 Creatinine 2.4 mg/dL (0.7-1.3) H 09/21/16 09:55 Creat Clearance w eGFR 30.48 (>60) 09/21/16 04:20 Random Glucose 207 mg/dL (74-106) H D 09/21/16 09:55 Calcium 7.2 mg/dL (8.5-10.1) L 09/21/16 09:55 Total Bilirubin 0.6 mg/dL (0.2-1.0) D 09/21/16 04:20 AST 389 U/L (15-37) H D 09/21/16 04:20 ALT 165 U/L (12-78) H D 09/21/16 04:20 Alkaline Phosphatase 175 U/L (45-117) H D 09/21/16 04:20 Total Protein 4.1 g/dl (6.4-8.2) L 09/21/16 04:20 Albumin 1.6 g/dl (3.4-5.0) L 09/21/16 04:20 CARDIAC ENZYMES Creatine Kinase 72 IU/L (39-308) 09/18/16 23:30 Troponin I 0.04 ng/ml (0.00-0.05) D 09/18/16 23:30 Current Medications Generic Name Dose Route Start Last Admin Trade Name Freq PRN Reason Stop Dose Admin Albuterol/Ipratropium 1 amp 09/21/16 14:00 09/21/16 13:59 Duoneb - NEB 1 amp TIDR SILVER Administration Chlorhexidine Gluconate 1 applic 09/18/16 22:00 09/20/16 22:08 Hibiclens For Decolonization - TP 1 applic HS SILVER Administration IV Flush 4 ml 09/18/16 20:31 Triple Lumen Flush IVPUSH PRN PRN Protocol Insulin Human Regular 100 100 mls @ 7 mls/hr 09/18/16 15:30 09/21/16 08:24 units/ Sodium Chloride IVPB 12 mls/hr TITR SILVER Administration Protocol 7 UNITS/HR Propofol 100 mls @ 2.722 mls/hr 09/18/16 15:00 09/21/16 14:16 Diprivan - IVPB 27.215 mls/hr TITR SILVER Administration Protocol 5 MCG/KG/MIN Famotidine/Sodium Chloride 50 mls @ 100 mls/hr 09/19/16 10:00 09/21/16 09:36 Pepcid 20 Mg Premixed Ivpb - IVPB 100 mls/hr BID SILVER Administration Fentanyl 500 mcg/ Dextrose 100 mls @ 10 mls/hr 09/19/16 01:30 09/21/16 14:16 IVPB 30 mls/hr TITR SILVER Administration 50 MCG/HR Midazolam HCl 100 mg/ Sodium 100 mls @ 1 mls/hr 09/19/16 09:30 09/21/16 06:40 Chloride IVPB 10 mls/hr TITR SILVER Administration Protocol 1 MG/HR Norepinephrine Bitartrate 8, 1,000 mls @ 37.5 mls/hr 09/19/16 11:00 09/21/16 03 :00 000 mcg/ Sodium Chloride IV 4 mcg/min TITR SILVER Titration Protocol 5 MCG/MIN Piperacillin Sod/Tazobactam Sod 50 mls @ 100 mls/hr 09/20/16 09:00 09/21/16 09: 36 Zosyn 3.375gm Ivpb (Pre-Docked) IVPB 100 mls/hr Q8H-IV SILVER Administration Protocol Thiamine HCl 200 mg/ 1,012.2 mls @ 42.175 mls/hr 09/21/16 11:00 09/21/16 13:19 Multivitamins/Minerals 10 ml/ IVPB 09/22/16 10:59 42.175 mls/hr Folic Acid 1 mg/ Sodium ONCE ONE Administration Chloride Potassium Chloride 20 meq/ 1,010 mls @ 75 mls/hr 09/21/16 15:00 Dextrose IVPB Q13H SILVER Mupirocin 1 applic 09/18/16 22:00 09/21/16 09:42 Bactroban Ointment (For Decolonization) - NS 09/23/16 21:59 1 applic BID SILVER Administration Potassium Chloride 40 meq 09/19/16 11:00 09/21/16 09:39 Potassium Chloride Oral Liquid PO 40 meq BID SILVER Administration Thiamine HCl 200 mg 09/19/16 10:00 09/21/16 09:36 Vitamin B1 Injection - IVPB 200 mg DAILY SILVER Administration Hepatic Panel Total Bilirubin 0.6 mg/dL (0.2-1.0) D 09/21/16 04:20 Direct Bilirubin 0.2 mg/dL (0.0-0.2) D 09/19/16 03:20 AST 389 U/L (15-37) H D 09/21/16 04:20 ALT 165 U/L (12-78) H D 09/21/16 04:20 Alkaline Phosphatase 175 U/L (45-117) H D 09/21/16 04:20 Albumin 1.6 g/dl (3.4-5.0) L 09/21/16 04:20 Home Medications Medication Instructions Recorded NK [No Known Home Medication] 09/18/16 ASSESSMENT AND PLAN: Patient is a 25M with PMHx of Asthma, cocaine use, etoh abuse , liver disease as per uncle, presents to the ED in DKA # Acute respiratory Failure intubated sedated in ICU continue sedation Propofol and Midazolam IV , further management per iCU team # Severe sepsis (Acute hypothermia, leukocytosis) on IVF, s/p Rocephin now on a broad spectrum ABX Zosyn day #2 as per ID, s/p LP looks like traumatic infection. blood culture, ua, urine culture is ordered , s/p one dose of Vancomycin 1500mg, and on Rocephin 2gm IV daily. ID on the case patient is having multi-organ failure ,f/u CSF cultures # Acute DKA ;with Hemoglobin A1c 12 , on the case managing DKA with electrolyte adjustments as per as well . if blood glucose drops to below 250 restart dextrose containing fluids ; continue 1/2 normal saline @ 75ml/hr s/p bicarb gtt , now on bicarb ampule q12h run over [address] Espinoza ( nephrology) replete potassium aggressively PRN # Acute renal failure IVF repeat cmp every 4 hrs ; Nephrology consult appreciated Cr 2.1 renal work up in process # Acute transaminitis/questionable history of Liver disease: likely from shock liver from hypoperfusion vs alcoholic liver disease Liver US showed fatty liver likely from alcoholism ;Aggressive IVF hydration and volume repletion; GI consult appreciated , repeat LFTs, CT Abdomen and pelvis with po contrast can not give IV contrast as patient is in renal failure # Acute thrombocytopenia: possible HIT2, will hold heparin and consult with Send serotonin release assay #Possible DIC: send Fibrin split products ,send fibrinogen, LDH haptoglobin, Coags WNL #Possible seizure activity vs withdrwel from ETOH when sedation is held. Neuro consult # Hx of EToh and cocaine , with normal CPK . On folic acid/thiamine continue # Ingestion of multiple Herbal supplements ( unknown amounts and unknown reason ) #Hematuria: from traumatic arnold insertion resolved # Acute Hypernatremia ; nephrology is on the case. 1/2NS at 75cc/hr #Hx of Asthma: intubated at this time HIV test ordered as per iD DVT Px: stopped heparin due to thrombocytopenia Head CT and abdominal cT with po contrast since the patient is in renal failure once patient is stable enough to have CT
[2016-09-21] MEDS: POTASSIUM CHLORIDE 20 MEQ in DEXTROSE 5%-WATER - 1,000 ML IVPB SCH (17:43)
[2016-09-21 19:35] LABS: MCH 31.7 pg (25.7-33.7); MCHC 34.8 g/dl (32.0-35.9); MEAN CELL VOLUME 91.1 fl (80-96); MEAN PLT VOLUME 11.2 fl (7.5-11.1); PLATELET COUNT 102 K/MM3 (134-434); RDW 15.5 % (11.9-15.9); WHITE BLOOD COUNT 7.6 K/mm3 (4.0-10.0)
[2016-09-21 19:49] LABS: INR 1.04 (0.82-1.09); PROTHROMBIN TIME (PATIENT) 11.5 SEC (9.98-11.88)
[2016-09-21] MEDS: CHLORHEXIDINE GLUCONATE 4% CLEANSER FOR DECOLONIZATION TP SCH (22:21)
[2016-09-22 00:07] LABS: A/G RATIO 1.2 (0.7-1.7); ALBUMIN 2.2 g/dL (2.9-4.4); GLOBULIN, TOTAL 1.9 g/dL (2.2-3.9); M-SPIKE Not Observed g/dL (Not Observed); TOTAL PROTEIN 4.1 g/dL (6.0-8.5)
[2016-09-22] MEDS: FENTANYL INJECTION 500 MCG in DEXTROSE 5%-WATER - 90 ML IVPB SCH ×2 (02:22→16:04)
[2016-09-22] MEDS: PIPERACILLIN/TAZOB 3.375 GM 50 ML IVPB SCH ×3 (02:23→18:39)
[2016-09-22] MEDS: INSULIN REGULAR 100 UNITS in SODIUM CHLORIDE 99 ML IVPB SCH ×3 (03:08→14:49)
[2016-09-22] MEDS: ALBUTEROL SO4 2.5/IPRATROPIUM 0.5 INH SOL 3 ML VIAL.NEB. NEB SCH ×4 (06:29→23:25)
[2016-09-22 06:45] LABS: INR 0.99 (0.82-1.09); PROTHROMBIN TIME (PATIENT) 10.9 SEC (9.98-11.88)
[2016-09-22 06:48] LABS: ACTIVATED PTT 21.8 SECONDS (26.9-34.4)
[2016-09-22 06:49] LABS: ALBUMIN 1.6 g/dl (3.4-5.0); CALCIUM 7.2 mg/dL (8.5-10.1); COCKROFT - GAULT 62.84; CREATININE 2.6 mg/dL (0.7-1.3); PHOSPHOROUS 4.5 mg/dL (2.5-4.9)
[2016-09-22 06:51] LABS: BILIRUBIN,TOTAL 0.7 mg/dL (0.2-1.0); TOT PROT 4.5 g/dl (6.4-8.2)
[2016-09-22] MEDS: POTASSIUM CHLORIDE 20 MEQ in DEXTROSE 5%-WATER - 1,000 ML IVPB SCH (07:02)
[2016-09-22 07:20] LABS: MAGNESIUM 1.8 mg/dL (1.8-2.4)
[2016-09-22 07:32] LABS: ARTERIAL BLD GAS O2 SATURATION 98.7 % (90-98.9); ARTERIAL BLOOD GAS BASE EXCESS -11.5 meq/l (-2-2); ARTERIAL BLOOD GAS HCO3 15.7 meq/L (22-26)
[2016-09-22 07:33] LABS: ALLENS TEST POSITIVE; ART PUNCT SITE LEFT RADIAL; ARTERIAL BLOOD GAS pH 7.19 (7.35-7.45); LPM/O2% 40; MECH. VENT. YES; PT. ON O2? YES; TYPE OF O2 VENT; VENT RATE 14; VT/PRESS 450
--- NOTE | 2016-09-22 07:40 | PN ---
Physical Exam: SUBJECTIVE: Patient seen and examined at bed side intubated sedated. off pressers, No BM, urine 1700c/12hrs. low grade temp Tmax 100.3. requiring cooling blanket, Now off pressors duplex bilateral thrombosis superficial cephalic veins. Fibrinogen improving CT head--no acute pathology ABG: mixed respiratory and metabolic acidosis to note new history: patient family reports prior to leaving to [place] patient had polyurea polydypsia and not feeling well. while in [place] seeked herbal meds for his Blood sugar. patient not drink as much as he normally dose(in [place] and when returned to the [facility]) as patient was feeling ill. (normally 15 to 20 bottles of beer daily). when arrived to the [facility] he looked worse than when he left and progressed to be lethargic. two day prior developed an upper respiratory infection patient described as swollen eyes, sinus type pain and yellow discharge, lost his voice two days prior and could not open up his mouth. patient walked to the store and purchased and ingested Tylenol for the pain. when found around 11am in bed shaking, seizure type activity, unknown how long, family believed from night prior. 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 family denies patient hearing voices, or labile mood. OBJECTIVE: Vital Signs Period Temp Pulse Resp BP Sys/Gould Pulse Ox Last 24 Hr 98.6 F-100.4 F 87-116 14-35 95-147/50-102 87-99 GENERAL: intubated, sedated HEAD: Normal with no signs of trauma. EYES: PERRL, extraocular movements intact, sclera anicteric, conjunctiva clear. No ptosis. ENT: Ears normal, nares patent, oropharynx clear without exudates, moist mucous membranes. NECK: Trachea midline, full range of motion, supple. LUNGS: scattered rhonchi, no wheezes, no crackles, no accessory muscle use. HEART: Regular rate and rhythm, S1, S2 without murmur, rub or gallop. ABDOMEN: Soft, nontender, nondistended, normoactive bowel sounds, no guarding, no rebound, no hepatosplenomegaly, no masses appreciated. swollen erthymatus excoriation of scrotum. EXTREMITIES: 2+ pulses, warm, well-perfused, no edema. NEUROLOGICAL: no facial asymmetry, patient sedated SKIN: dark purple/black rectangular flat patch right forearm 2 1/2 cm x 5cm with erythematus border no change in size or color. Laboratory Results - last 24 hr 09/18/16 09/18/16 09/18/16 17:43 19:57 20:49 WBC Corrected WBC (auto) RBC Hgb Hct MCV MCHC RDW Plt Count MPV Neutrophils % Lymphocytes % Monocytes % Eosinophils % Basophils % Differential Comment Smudge Cells Platelet Estimate Platelet Comment RBC Morphology Retic Count INR PTT (Actin FS) Fibrinogen Fibrin Degrad Products Puncture Site ABG pH ABG pCO2 at Pt Temp ABG pO2 at Pt Temp ABG HCO3 ABG O2 Sat (Measured) ABG O2 Content ABG Base Excess Dennis Test O2 Delivery Device Oxygen Flow Rate Vent Mode Vent Rate Mechanical Rate PEEP Pressure Support Vent Sodium Potassium Chloride Carbon Dioxide Anion Gap BUN Creatinine POC Glucometer > 400 > 400 > 400 Random Glucose Lactic Acid Calcium Phosphorus Magnesium LD Total Prot Electrophoresis Serum Total Protein Albumin Globulin Albumin/Globulin Ratio Esiyt-3-Qxdebsnvw Epufg-3-Zdqhxmjcc Beta Globulins Gamma Globulins Urine Eosinophils CLARICE M-James Double Strand DNA Ab Hepatitis C Antibody 09/18/16 09/19/16 09/19/16 22:24 00:01 05:55 WBC Corrected WBC (auto) RBC Hgb Hct MCV MCHC RDW Plt Count MPV Neutrophils % Lymphocytes % Monocytes % Eosinophils % Basophils % Differential Comment Smudge Cells Platelet Estimate Platelet Comment RBC Morphology Retic Count INR PTT (Actin FS) Fibrinogen Fibrin Degrad Products Puncture Site ABG pH ABG pCO2 at Pt Temp ABG pO2 at Pt Temp ABG HCO3 ABG O2 Sat (Measured) ABG O2 Content ABG Base Excess Dnenis Test O2 Delivery Device Oxygen Flow Rate Vent Mode Vent Rate Mechanical Rate PEEP Pressure Support Vent Sodium Potassium Chloride Carbon Dioxide Anion Gap BUN Creatinine POC Glucometer > 400 > 400 > 400 Random Glucose Lactic Acid Calcium Phosphorus Magnesium LD Total Prot Electrophoresis Serum Total Protein Albumin Globulin Albumin/Globulin Ratio Gwsvx-6-Friicgyhu Cpbzg-4-Fwqgihxhd Beta Globulins Gamma Globulins Urine Eosinophils CLARICE M-James Double Strand DNA Ab Hepatitis C Antibody 09/19/16 09/19/16 09/19/16 06:05 06:54 08:04 WBC Corrected WBC (auto) RBC Hgb Hct MCV MCHC RDW Plt Count MPV Neutrophils % Lymphocytes % Monocytes % Eosinophils % Basophils % Differential Comment Smudge Cells Platelet Estimate Platelet Comment RBC Morphology Retic Count INR PTT (Actin FS) Fibrinogen Fibrin Degrad Products Puncture Site ABG pH ABG pCO2 at Pt Temp ABG pO2 at Pt Temp ABG HCO3 ABG O2 Sat (Measured) ABG O2 Content ABG Base Excess Dennis Test O2 Delivery Device Oxygen Flow Rate Vent Mode Vent Rate Mechanical Rate PEEP Pressure Support Vent Sodium Potassium Chloride Carbon Dioxide Anion Gap BUN Creatinine POC Glucometer > 400 > 400 Random Glucose Lactic Acid Calcium Phosphorus Magnesium LD Total Prot Electrophoresis Serum Total Protein Albumin Globulin Albumin/Globulin Ratio Eiwmh-2-Avfsizotn Ldgge-6-Uhzsrcgbx Beta Globulins Gamma Globulins Urine Eosinophils CLARICE M-James Double Strand DNA Ab Hepatitis C Antibody <0.1 09/19/16 09/19/16 09/19/16 10:16 12:23 12:27 WBC Corrected WBC (auto) RBC Hgb Hct MCV MCHC RDW Plt Count MPV Neutrophils % Lymphocytes % Monocytes % Eosinophils % Basophils % Differential Comment Smudge Cells Platelet Estimate Platelet Comment RBC Morphology Retic Count INR PTT (Actin FS) Fibrinogen Fibrin Degrad Products Puncture Site ABG pH ABG pCO2 at Pt Temp ABG pO2 at Pt Temp ABG HCO3 ABG O2 Sat (Measured) ABG O2 Content ABG Base Excess Dennis Test O2 Delivery Device Oxygen Flow Rate Vent Mode Vent Rate Mechanical Rate PEEP Pressure Support Vent Sodium Potassium Chloride Carbon Dioxide Anion Gap BUN Creatinine POC Glucometer > 400 [phone] Random Glucose Lactic Acid Calcium Phosphorus Magnesium LD Total Prot Electrophoresis Serum Total Protein Albumin Globulin Albumin/Globulin Ratio Akdzc-0-Kntqnnnrt Qtwem-5-Ksvaqonlr Beta Globulins Gamma Globulins Urine Eosinophils CLARICE M-James Double Strand DNA Ab Hepatitis C Antibody 09/19/16 09/19/16 09/19/16 15:59 19:30 20:05 WBC Corrected WBC (auto) RBC Hgb Hct MCV MCHC RDW Plt Count MPV Neutrophils % Lymphocytes % Monocytes % Eosinophils % Basophils % Differential Comment Smudge Cells Platelet Estimate Platelet Comment RBC Morphology Retic Count INR PTT (Actin FS) Fibrinogen Fibrin Degrad Products Puncture Site ABG pH ABG pCO2 at Pt Temp ABG pO2 at Pt Temp ABG HCO3 ABG O2 Sat (Measured) ABG O2 Content ABG Base Excess Dennis Test O2 Delivery Device Oxygen Flow Rate Vent Mode Vent Rate Mechanical Rate PEEP Pressure Support Vent Sodium Potassium Chloride Carbon Dioxide Anion Gap BUN Creatinine POC Glucometer > 400 > 400 Random Glucose Lactic Acid Calcium Phosphorus Magnesium LD Total Prot Electrophoresis Serum Total Protein 4.1 L Albumin 2.2 L Globulin 1.9 L Albumin/Globulin Ratio 1.2 Zqiec-4-Kdtwwyhdr 0.2 Sleun-3-Qhzbjfrtc 0.7 Beta Globulins 0.5 L Gamma Globulins 0.5 Urine Eosinophils None seen CLARICE M-James Not observed Double Strand DNA Ab <1 Hepatitis C Antibody 09/19/16 09/19/16 09/19/16 21:08 22:14 23:07 WBC Corrected WBC (auto) RBC Hgb Hct MCV MCHC RDW Plt Count MPV Neutrophils % Lymphocytes % Monocytes % Eosinophils % Basophils % Differential Comment Smudge Cells Platelet Estimate Platelet Comment RBC Morphology Retic Count INR PTT (Actin FS) Fibrinogen Fibrin Degrad Products Puncture Site ABG pH ABG pCO2 at Pt Temp ABG pO2 at Pt Temp ABG HCO3 ABG O2 Sat (Measured) ABG O2 Content ABG Base Excess Dennis Test O2 Delivery Device Oxygen Flow Rate Vent Mode Vent Rate Mechanical Rate PEEP Pressure Support Vent Sodium Potassium Chloride Carbon Dioxide Anion Gap BUN Creatinine POC Glucometer > 400 > 400 > 400 Random Glucose Lactic Acid Calcium Phosphorus Magnesium LD Total Prot Electrophoresis Serum Total Protein Albumin Globulin Albumin/Globulin Ratio Cwhvr-9-Nntyuphyl Twyqj-6-Itvinsjvh Beta Globulins Gamma Globulins Urine Eosinophils CLARICE M-James Double Strand DNA Ab Hepatitis C Antibody 09/20/16 09/20/16 09/20/16 00:25 15:31 16:46 WBC Corrected WBC (auto) RBC Hgb Hct MCV MCHC RDW Plt Count MPV Neutrophils % Lymphocytes % Monocytes % Eosinophils % Basophils % Differential Comment Smudge Cells Platelet Estimate Platelet Comment RBC Morphology Retic Count INR PTT (Actin FS) Fibrinogen Fibrin Degrad Products Puncture Site ABG pH ABG pCO2 at Pt Temp ABG pO2 at Pt Temp ABG HCO3 ABG O2 Sat (Measured) ABG O2 Content ABG Base Excess Dennis Test O2 Delivery Device Oxygen Flow Rate Vent Mode Vent Rate Mechanical Rate PEEP Pressure Support Vent Sodium Potassium Chloride Carbon Dioxide Anion Gap BUN Creatinine POC Glucometer > 400 > 400 > 400 Random Glucose Lactic Acid Calcium Phosphorus Magnesium LD Total Prot Electrophoresis Serum Total Protein Albumin Globulin Albumin/Globulin Ratio Uqkxl-6-Loqocztjj Ndlyj-7-Halitzjsk Beta Globulins Gamma Globulins Urine Eosinophils CLARICE M-James Double Strand DNA Ab Hepatitis C Antibody 09/20/16 09/20/16 09/20/16 17:42 18:40 19:44 WBC Corrected WBC (auto) RBC Hgb Hct MCV MCHC RDW Plt Count MPV Neutrophils % Lymphocytes % Monocytes % Eosinophils % Basophils % Differential Comment Smudge Cells Platelet Estimate Platelet Comment RBC Morphology Retic Count INR PTT (Actin FS) Fibrinogen Fibrin Degrad Products Puncture Site ABG pH ABG pCO2 at Pt Temp ABG pO2 at Pt Temp ABG HCO3 ABG O2 Sat (Measured) ABG O2 Content ABG Base Excess Dennis Test O2 Delivery Device Oxygen Flow Rate Vent Mode Vent Rate Mechanical Rate PEEP Pressure Support Vent Sodium Potassium Chloride Carbon Dioxide Anion Gap BUN Creatinine POC Glucometer > 400 > 400 > 400 Random Glucose Lactic Acid Calcium Phosphorus Magnesium LD Total Prot Electrophoresis Serum Total Protein Albumin Globulin Albumin/Globulin Ratio Xtcop-2-Kqwvoreqe Hlbhh-1-Ftlozoblz Beta Globulins Gamma Globulins Urine Eosinophils CLARICE M-James Double Strand DNA Ab Hepatitis C Antibody 09/20/16 09/20/16 09/20/16 21:16 22:12 23:09 WBC Corrected WBC (auto) RBC Hgb Hct MCV MCHC RDW Plt Count MPV Neutrophils % Lymphocytes % Monocytes % Eosinophils % Basophils % Differential Comment Smudge Cells Platelet Estimate Platelet Comment RBC Morphology Retic Count INR PTT (Actin FS) Fibrinogen Fibrin Degrad Products Puncture Site ABG pH ABG pCO2 at Pt Temp ABG pO2 at Pt Temp ABG HCO3 ABG O2 Sat (Measured) ABG O2 Content ABG Base Excess Dennis Test O2 Delivery Device Oxygen Flow Rate Vent Mode Vent Rate Mechanical Rate PEEP Pressure Support Vent Sodium Potassium Chloride Carbon Dioxide Anion Gap BUN Creatinine POC Glucometer > 400 > 400 > 400 Random Glucose Lactic Acid Calcium Phosphorus Magnesium LD Total Prot Electrophoresis Serum Total Protein Albumin Globulin Albumin/Globulin Ratio Vnzsv-8-Fbjmdwehi Dxshz-5-Zybasathv Beta Globulins Gamma Globulins Urine Eosinophils CLARICE M-James Double Strand DNA Ab Hepatitis C Antibody 09/21/16 09/21/16 09/21/16 00:00 01:06 02:01 WBC Corrected WBC (auto) RBC Hgb Hct MCV MCHC RDW Plt Count MPV Neutrophils % Lymphocytes % Monocytes % Eosinophils % Basophils % Differential Comment Smudge Cells Platelet Estimate Platelet Comment RBC Morphology Retic Count INR PTT (Actin FS) Fibrinogen Fibrin Degrad Products Puncture Site ABG pH ABG pCO2 at Pt Temp ABG pO2 at Pt Temp ABG HCO3 ABG O2 Sat (Measured) ABG O2 Content ABG Base Excess Dennis Test O2 Delivery Device Oxygen Flow Rate Vent Mode Vent Rate Mechanical Rate PEEP Pressure Support Vent Sodium Potassium Chloride Carbon Dioxide Anion Gap BUN Creatinine POC Glucometer > 400 > 400 > 400 Random Glucose Lactic Acid Calcium Phosphorus Magnesium LD Total Prot Electrophoresis Serum Total Protein Albumin Globulin Albumin/Globulin Ratio Frysz-0-Wtgizhnde Pdmxo-3-Wofeunblo Beta Globulins Gamma Globulins Urine Eosinophils CLARICE M-James Double Strand DNA Ab Hepatitis C Antibody 09/21/16 09/21/16 09/21/16 03:04 07:01 07:15 WBC Corrected WBC (auto) RBC Hgb Hct MCV MCHC RDW Plt Count MPV Neutrophils % Lymphocytes % Monocytes % Eosinophils % Basophils % Differential Comment Smudge Cells Platelet Estimate Platelet Comment RBC Morphology Retic Count INR PTT (Actin FS) Fibrinogen Fibrin Degrad Products Puncture Site Right radial ABG pH 7.37 ABG pCO2 at Pt Temp 24.4 L ABG pO2 at Pt Temp 180.0 H* ABG HCO3 13.8 L* ABG O2 Sat (Measured) 97.7 ABG O2 Content 11.9 L ABG Base Excess -10.0 L Dennis Test Positive O2 Delivery Device Vent Oxygen Flow Rate 40 Vent Mode A/c Vent Rate 35 Mechanical Rate Yes PEEP 5.0 Pressure Support Vent 450 Sodium Potassium Chloride Carbon Dioxide Anion Gap BUN Creatinine POC Glucometer > [phone] Random Glucose Lactic Acid Calcium Phosphorus Magnesium LD Total Prot Electrophoresis Serum Total Protein Albumin Globulin Albumin/Globulin Ratio Ryfmh-3-Airehioly Vkgpw-1-Iejihrksg Beta Globulins Gamma Globulins Urine Eosinophils CLARICE M-James Double Strand DNA Ab Hepatitis C Antibody 09/21/16 09/21/16 09/21/16 07:47 08:44 09:55 WBC Corrected WBC (auto) RBC Hgb Hct MCV MCHC RDW Plt Count MPV Neutrophils % Lymphocytes % Monocytes % Eosinophils % Basophils % Differential Comment Smudge Cells Platelet Estimate Platelet Comment RBC Morphology Retic Count INR PTT (Actin FS) Fibrinogen Fibrin Degrad Products Puncture Site ABG pH ABG pCO2 at Pt Temp ABG pO2 at Pt Temp ABG HCO3 ABG O2 Sat (Measured) ABG O2 Content ABG Base Excess Dennis Test O2 Delivery Device Oxygen Flow Rate Vent Mode Vent Rate Mechanical Rate PEEP Pressure Support Vent Sodium 153 H Potassium 3.7 Chloride 127 H Carbon Dioxide 18 L D Anion Gap 8 BUN 31 H Creatinine 2.4 H POC Glucometer 321.17776 270.75872 Random Glucose 207 H D Lactic Acid Calcium 7.2 L Phosphorus 3.0 Magnesium 1.8 LD Total Prot Electrophoresis Serum Total Protein Albumin Globulin Albumin/Globulin Ratio Srbih-8-Cphkoaxtk Ldihu-7-Riopvxbyg Beta Globulins Gamma Globulins Urine Eosinophils CLARICE M-James Double Strand DNA Ab Hepatitis C Antibody 09/21/16 09/21/16 09/21/16 10:34 11:00 11:00 WBC Corrected WBC (auto) RBC Hgb Hct MCV MCHC RDW Plt Count MPV Neutrophils % Lymphocytes % Monocytes % Eosinophils % Basophils % Differential Comment Smudge Cells Platelet Estimate Platelet Comment RBC Morphology Retic Count 2.65 H INR PTT (Actin FS) Fibrinogen 295.0 D Fibrin Degrad Products Less than 10 Puncture Site ABG pH ABG pCO2 at Pt Temp ABG pO2 at Pt Temp ABG HCO3 ABG O2 Sat (Measured) ABG O2 Content ABG Base Excess Dennis Test O2 Delivery Device Oxygen Flow Rate Vent Mode Vent Rate Mechanical Rate PEEP Pressure Support Vent Sodium Potassium Chloride Carbon Dioxide Anion Gap BUN Creatinine POC Glucometer [phone] Random Glucose Lactic Acid Calcium Phosphorus Magnesium LD Total Prot Electrophoresis Serum Total Protein Albumin Globulin Albumin/Globulin Ratio Smzdk-2-Vmvjzjmws Yabjh-5-Amttgphlc Beta Globulins Gamma Globulins Urine Eosinophils CLARICE M-James Double Strand DNA Ab Hepatitis C Antibody 09/21/16 09/21/16 09/21/16 11:00 11:00 11:44 WBC Corrected WBC (auto) RBC Hgb Hct MCV MCHC RDW Plt Count MPV Neutrophils % Lymphocytes % Monocytes % Eosinophils % Basophils % Differential Comment Smudge Cells Platelet Estimate Platelet Comment RBC Morphology Retic Count INR PTT (Actin FS) Fibrinogen Fibrin Degrad Products Puncture Site ABG pH ABG pCO2 at Pt Temp ABG pO2 at Pt Temp ABG HCO3 ABG O2 Sat (Measured) ABG O2 Content ABG Base Excess Dennis Test O2 Delivery Device Oxygen Flow Rate Vent Mode Vent Rate Mechanical Rate PEEP Pressure Support Vent Sodium Potassium Chloride Carbon Dioxide Anion Gap BUN Creatinine POC Glucometer [phone] Random Glucose Lactic Acid 0.535 Calcium Phosphorus Magnesium LD Total 440 H D Prot Electrophoresis Serum Total Protein Albumin Globulin Albumin/Globulin Ratio Cjljk-9-Gkbxdobvg Frhkl-3-Wqetgqzsx Beta Globulins Gamma Globulins Urine Eosinophils CLARIEC M-James Double Strand DNA Ab Hepatitis C Antibody 09/21/16 09/21/16 09/21/16 13:00 14:05 15:58 WBC Corrected WBC (auto) RBC Hgb Hct MCV MCHC RDW Plt Count MPV Neutrophils % Lymphocytes % Monocytes % Eosinophils % Basophils % Differential Comment Smudge Cells Platelet Estimate Platelet Comment RBC Morphology Retic Count INR PTT (Actin FS) Fibrinogen Fibrin Degrad Products Puncture Site ABG pH ABG pCO2 at Pt Temp ABG pO2 at Pt Temp ABG HCO3 ABG O2 Sat (Measured) ABG O2 Content ABG Base Excess Dennis Test O2 Delivery Device Oxygen Flow Rate Vent Mode Vent Rate Mechanical Rate PEEP Pressure Support Vent Sodium Potassium Chloride Carbon Dioxide Anion Gap BUN Creatinine POC Glucometer 262.16404 287.89866 [phone] Random Glucose Lactic Acid Calcium Phosphorus Magnesium LD Total Prot Electrophoresis Serum Total Protein Albumin Globulin Albumin/Globulin Ratio Pbwiw-2-Gvlyppncq Jgqfl-6-Mpnpomshv Beta Globulins Gamma Globulins Urine Eosinophils CLARICE M-James Double Strand DNA Ab Hepatitis C Antibody 09/21/16 09/21/16 09/21/16 17:33 18:34 18:55 WBC Corrected WBC (auto) RBC Hgb Hct MCV MCHC RDW Plt Count MPV Neutrophils % Lymphocytes % Monocytes % Eosinophils % Basophils % Differential Comment Smudge Cells Platelet Estimate Platelet Comment RBC Morphology Retic Count INR PTT (Actin FS) 40.2 H Fibrinogen Fibrin Degrad Products Puncture Site ABG pH ABG pCO2 at Pt Temp ABG pO2 at Pt Temp ABG HCO3 ABG O2 Sat (Measured) ABG O2 Content ABG Base Excess Dennis Test O2 Delivery Device Oxygen Flow Rate Vent Mode Vent Rate Mechanical Rate PEEP Pressure Support Vent Sodium Potassium Chloride Carbon Dioxide Anion Gap BUN Creatinine POC Glucometer 273.43652 [phone] Random Glucose Lactic Acid Calcium Phosphorus Magnesium LD Total Prot Electrophoresis Serum Total Protein Albumin Globulin Albumin/Globulin Ratio Rpfqn-4-Bswwodcph Qwzfo-3-Isfwmifgp Beta Globulins Gamma Globulins Urine Eosinophils CLARICE M-James Double Strand DNA Ab Hepatitis C Antibody 09/21/16 09/21/16 09/21/16 18:55 18:55 18:55 WBC 7.6 Corrected WBC (auto) RBC 3.43 L Hgb 10.9 L D Hct 31.2 L D MCV 91.1 MCHC 34.8 RDW 15.5 Plt Count 102 L MPV 11.2 H Neutrophils % Lymphocytes % Monocytes % Eosinophils % Basophils % Differential Comment Smudge Cells Platelet Estimate Platelet Comment RBC Morphology Retic Count INR 1.04 PTT (Actin FS) Fibrinogen 636.0 H Fibrin Degrad Products Puncture Site ABG pH ABG pCO2 at Pt Temp ABG pO2 at Pt Temp ABG HCO3 ABG O2 Sat (Measured) ABG O2 Content ABG Base Excess Dennis Test O2 Delivery Device Oxygen Flow Rate Vent Mode Vent Rate Mechanical Rate PEEP Pressure Support Vent Sodium Potassium Chloride Carbon Dioxide Anion Gap BUN Creatinine POC Glucometer Random Glucose Lactic Acid Calcium Phosphorus Magnesium LD Total Prot Electrophoresis Serum Total Protein Albumin Globulin Albumin/Globulin Ratio Kugum-3-Mlazbmugp Jsekt-2-Vaguaqhaj Beta Globulins Gamma Globulins Urine Eosinophils CLARICE M-James Double Strand DNA Ab Hepatitis C Antibody 09/21/16 09/21/16 09/22/16 21:05 22:16 00:05 WBC Corrected WBC (auto) RBC Hgb Hct MCV MCHC RDW Plt Count MPV Neutrophils % Lymphocytes % Monocytes % Eosinophils % Basophils % Differential Comment Smudge Cells Platelet Estimate Platelet Comment RBC Morphology Retic Count INR PTT (Actin FS) Fibrinogen Fibrin Degrad Products Puncture Site ABG pH ABG pCO2 at Pt Temp ABG pO2 at Pt Temp ABG HCO3 ABG O2 Sat (Measured) ABG O2 Content ABG Base Excess Dennis Test O2 Delivery Device Oxygen Flow Rate Vent Mode Vent Rate Mechanical Rate PEEP Pressure Support Vent Sodium Potassium Chloride Carbon Dioxide Anion Gap BUN Creatinine POC Glucometer [phone] [phone] Random Glucose Lactic Acid Calcium Phosphorus Magnesium LD Total Prot Electrophoresis Serum Total Protein Albumin Globulin Albumin/Globulin Ratio Ykiib-1-Avfgkmeeh Ohoiy-1-Jqkvzwydi Beta Globulins Gamma Globulins Urine Eosinophils CLARICE M-James Double Strand DNA Ab Hepatitis C Antibody 09/22/16 09/22/16 09/22/16 05:15 05:15 05:15 WBC Cancelled Corrected WBC (auto) Cancelled RBC Cancelled Hgb Cancelled Hct Cancelled MCV Cancelled MCHC Cancelled RDW Cancelled Plt Count Cancelled MPV Cancelled Neutrophils % Cancelled Lymphocytes % Cancelled Monocytes % Cancelled Eosinophils % Cancelled Basophils % Cancelled Differential Comment Cancelled Smudge Cells Cancelled Platelet Estimate Cancelled Platelet Comment Cancelled RBC Morphology Cancelled Retic Count INR 0.99 PTT (Actin FS) 21.8 L D Fibrinogen 372.0 D Fibrin Degrad Products Puncture Site ABG pH ABG pCO2 at Pt Temp ABG pO2 at Pt Temp ABG HCO3 ABG O2 Sat (Measured) ABG O2 Content ABG Base Excess Dennis Test O2 Delivery Device Oxygen Flow Rate Vent Mode Vent Rate Mechanical Rate PEEP Pressure Support Vent Sodium Potassium Chloride Carbon Dioxide Anion Gap BUN Creatinine POC Glucometer Random Glucose Lactic Acid Calcium Phosphorus Magnesium LD Total Prot Electrophoresis Serum Total Protein Albumin Globulin Albumin/Globulin Ratio Hytsl-6-Xeeufptrf Bfhaj-5-Hxmdslbsw Beta Globulins Gamma Globulins Urine Eosinophils CLARICE M-James Double Strand DNA Ab Hepatitis C Antibody Active Medications Generic Name Dose Route Start Last Admin Trade Name Freq PRN Reason Stop Dose Admin Albuterol/Ipratropium 1 amp 09/21/16 14:00 09/22/16 06:29 Duoneb - NEB 1 amp TIDR SILVER Administration Chlorhexidine Gluconate 1 applic 09/18/16 22:00 09/21/16 22:21 Hibiclens For Decolonization - TP 1 applic HS SILVER Administration IV Flush 4 ml 09/18/16 20:31 Triple Lumen Flush IVPUSH PRN PRN Protocol Insulin Human Regular 100 100 mls @ 7 mls/hr 09/18/16 15:30 09/22/16 07:01 units/ Sodium Chloride IVPB 4 mls/hr TITR SILVER Administration Protocol 7 UNITS/HR Propofol 100 mls @ 2.722 mls/hr 09/18/16 15:00 09/21/16 18:21 Diprivan - IVPB 27.215 mls/hr TITR SILVER Administration Protocol 5 MCG/KG/MIN Famotidine/Sodium Chloride 50 mls @ 100 mls/hr 09/19/16 10:00 09/21/16 21:42 Pepcid 20 Mg Premixed Ivpb - IVPB 100 mls/hr BID SILVER Administration Fentanyl 500 mcg/ Dextrose 100 mls @ 10 mls/hr 09/19/16 01:30 09/22/16 02:22 IVPB 20 mls/hr TITR SILVER Administration 50 MCG/HR Midazolam HCl 100 mg/ Sodium 100 mls @ 1 mls/hr 09/19/16 09:30 09/21/16 17:42 Chloride IVPB 10 mls/hr TITR SILVER Administration Protocol 1 MG/HR Norepinephrine Bitartrate 8, 1,000 mls @ 37.5 mls/hr 09/19/16 11:00 09/21/16 03 :00 000 mcg/ Sodium Chloride IV 4 mcg/min TITR SILVER Titration Protocol 5 MCG/MIN Piperacillin Sod/Tazobactam Sod 50 mls @ 100 mls/hr 09/20/16 09:00 09/22/16 02: 23 Zosyn 3.375gm Ivpb (Pre-Docked) IVPB 100 mls/hr Q8H-IV SILVER Administration Protocol Thiamine HCl 200 mg/ 1,012.2 mls @ 42.175 mls/hr 09/21/16 11:00 09/21/16 13:19 Multivitamins/Minerals 10 ml/ IVPB 09/22/16 10:59 42.175 mls/hr Folic Acid 1 mg/ Sodium ONCE ONE Administration Chloride Potassium Chloride 20 meq/ 1,010 mls @ 75 mls/hr 09/21/16 15:00 09/22/16 07:02 Dextrose IVPB 75 mls/hr Q13H SILVER Administration Mupirocin 1 applic 09/18/16 22:00 09/21/16 22:18 Bactroban Ointment (For Decolonization) - NS 09/23/16 21:59 1 applic BID SILVER Administration Potassium Chloride 40 meq 09/19/16 11:00 09/21/16 21:43 Potassium Chloride Oral Liquid PO 40 meq BID SILVER Administration Thiamine HCl 200 mg 09/19/16 10:00 09/21/16 09:36 Vitamin B1 Injection - IVPB 200 mg DAILY SILVER Administration ASSESSMENT/PLAN: 25M found down with no PMH of DM presents to the ED unresponsive in DKA and sepsis shock. Leukocytosis resolved, tachy cardic, fever last night, on levophed.lactic acidosis trending down. will keep sedated for anther couple of days to cover withdraw window. Diabetic ketoacidosis: initial presentation of DKA from untreated type 1 DM restart bicarb gtt per dr. Patton D5w 20Kcl 75ml/hr cont insulin gtt, gap closed, per Endocrinology BMP q4h HbA1C 12.9 Septic Shock: leukocytosis resolved, tachy cardic, fever last night, on levophed. lactic acidosis trending down. acute kidney injury Continue Levophed wean as tolerated. - keep CVP 8-12 if needed IVNS 500cc Bolus Titrate pressors to maintain MAP >65 unknown source at this time, possible sinusitis source. on antibiotic. Continue empiric Zosyn source of infection unknown BCx no growth so far UCx-no growth final continue Zosyn per ID f/u CSF cultures patient is having multi-organ failure Acute respiratory failure: 2/2 to DKA, intubated and sedated not a candidate for weaning at this time due to sedation requirements, and agitated when light sedation, Ventilatory support ABG improved Spontaneous breathing trials as tolerated when mental status improved and will keep sedated for anther couple of days to cover withdraw window. Pancrease normal on CT mixed metabolic and respiratory acidosis. restart bicarb gtt today lactic acidosis:resolved 2/2 DKA and dehydration, hypovolemia trend lactic acid IVF Metabolic acidosis: resolved 2/2 to DKA, gap closed, will continue insulin drip d/c bicarb toxic metabolic encephalopathy - Possible seizure activity when sedation is lightened, in light of history patient drinks 15 to 20 beers daily. possible withdrawals f/u monitoring labs and CSF cultures. Thrombocytopenia: less likely related to HIT Stop heparin sq sent HIT Ab Send serotonin release assay Hematology consult-Dr. Fernandez Send LDH haptoglobin Possible DIC: improving, fibrinogen increasing yesterday and normalized today Fibrin split products Coags WNL platelets cont to decrease thrombosis superficial bilateral cephalic veins- most likely secondary to DIC: no change in size and color. supportive care Alcohol abuse/ withdrawal thiamine and folate titrate up versed Polysubstance Abuse: unknown substances monitor for withdrawl supportive care Acute kidney injury: cr 2.6 no change today. most likely 2/2 prerenal azotemia IVF follow kidney function avoid nephrotoxic drugs C'3 and C'4, Antibodies work up VIRGIL DS DNA Myeloperoxidase Anca Etc pending Transaminitis: questionable history of Liver disease, alcohol, drug, Tylenol use , LFTs significantly increased today, possibly secondary to shock fatty liver on US: alcoholism vs obesity IVF GI consulted CT Abdomen pelvis with po contrast can not give IV contrast as patient is in renal failure. patient has some blood in his stool but not melena per medical chart possible patient is having a hemorrhagic pancreatitis-will f/u CTAP Hematuria:resolved, 2/2 traumatic arnold insertion Hypernatremia: patient initially has pseudohyponatremia from hyperglycemia as corrected sodium was normal now patient is hypernatremic D5W 75cc/hr continue free water through NGT free water through NGT 250ml/hr q6h per Dr. Espinoza Asthma: duonebs intubated at this time FEN: D5w @ 75ml/hr/ and free water through NGT replete potassium for hypokalemia while on insulin gtt keep K+>4.0. hypernatremia see above for plan NPO - enteral feeds PPx: SCDs stop HSQ for possible HIT Pepcid No PT consult at this time dispo: continue ICU monitoring Visit type - Emergency Visit Emergency Visit: Yes ED Registration Date: 09/18/16 Care time: The patient presented to the Emergency Department on the above date and was hospitalized for further evaluation of their emergent condition. - New Patient This patient is new to me today: No - Critical Care Critical Care patient: Yes Total Critical Care Time (in minutes): 52 Critical Care Statement: The care of this patient involved high complexity decision making to prevent further life threatening deterioration of the patient 's condition and/or to evalute & treat vital organ system(s) failure or risk of failure.
[2016-09-22 08:24] LABS: BASOPHIL 0.5 % (0-2.0); EOSINOPHIL 0.9 % (0-4.5); MCH 31.2 pg (25.7-33.7); MEAN CELL VOLUME 91.6 fl (80-96); MEAN PLT VOLUME 10.4 fl (7.5-11.1); NEUTROPHILS 73.7 % (42.8-82.8); PLATELET COUNT 86 K/MM3 (134-434); RDW 15.3 % (11.9-15.9)
--- NOTE | 2016-09-22 09:21 | PN ---
Progress Note (short form) - Note Progress Note: Events noted chart reviewed Still Intubated, sedated Off pressure support Febrile Blood sugar 200s On tube feeding now Vital Signs Period Temp Pulse Resp BP Sys/Gould Pulse Ox Last 24 Hr 98.6 F-100.3 F 87-118 14-35 95-147/50-102 87-99 PE: Intubated, sedated Neck: Supple, No JVd Lungs: CTA CVS: S1S2 Abd: benign Ext: No edema Neuro: intubated, sedated CMP Sodium 149 mmol/L (136-145) H 09/22/16 05:15 Potassium 4.5 mmol/L (3.5-5.1) D 09/22/16 05:15 Chloride 125 mmol/L (98-107) H 09/22/16 05:15 Carbon Dioxide 17 mmol/L (21-32) L 09/22/16 05:15 Anion Gap 7 (8-16) L 09/22/16 05:15 BUN 31 mg/dL (7-18) H 09/22/16 05:15 Creatinine 2.6 mg/dL (0.7-1.3) H 09/22/16 05:15 Creat Clearance w eGFR 30.48 (>60) 09/22/16 05:15 POC Glucometer 218.37437 UNITS (()) 09/22/16 07:37 Random Glucose 206 mg/dL (74-106) H 09/22/16 05:15 Hemoglobin A1c % 12.9 % (4.8-6.0) H 09/19/16 06:05 Serum Osmolality 350 mosm/kg (278-305) H 09/18/16 23:30 Lactic Acid 0.535 mmol/L (0.4-2.0) 09/21/16 11:00 Calcium 7.2 mg/dL (8.5-10.1) L 09/22/16 05:15 Phosphorus 4.5 mg/dL (2.5-4.9) D 09/22/16 05:15 Magnesium 1.8 mg/dL (1.8-2.4) 09/22/16 05:15 Total Bilirubin 0.7 mg/dL (0.2-1.0) 09/22/16 05:15 Direct Bilirubin 0.2 mg/dL (0.0-0.2) D 09/19/16 03:20 AST 267 U/L (15-37) H D 09/22/16 05:15 ALT 189 U/L (12-78) H 09/22/16 05:15 Alkaline Phosphatase 284 U/L (45-117) H D 09/22/16 05:15 LD Total 440 U/L (87-241) H D 09/21/16 11:00 Creatine Kinase 72 IU/L (39-308) 09/18/16 23:30 Troponin I 0.04 ng/ml (0.00-0.05) D 09/18/16 23:30 Prot Electrophoresis (.) 09/19/16 19:30 Serum Total Protein 4.1 g/dL (6.0-8.5) L 09/19/16 19:30 Total Protein 4.5 g/dl (6.4-8.2) L 09/22/16 05:15 Albumin 1.6 g/dl (3.4-5.0) L 09/22/16 05:15 Globulin 1.9 g/dL (2.2-3.9) L 09/19/16 19:30 Albumin/Globulin Ratio 1.2 (0.7-1.7) 09/19/16 19:30 Dbsle-8-Ayvheymdx 0.2 gm/dL (0.0-0.4) 09/19/16 19:30 Omvsz-2-Cqwnzlxti 0.7 gm/dL (0.4-1.0) 09/19/16 19:30 Beta Globulins 0.5 gm/dL (0.7-1.3) L 09/19/16 19:30 Gamma Globulins 0.5 gm/dL (0.4-1.8) 09/19/16 19:30 Total Amylase 98 U/L (25-115) D 09/20/16 05:40 Lipase 262 U/L (73-393) 09/20/16 05:40 TSH 0.37 uIU/ml (0.358-3.74) 09/18/16 20:25 Current Medications Generic Name Dose Route Start Last Admin Trade Name Freq PRN Reason Stop Dose Admin Albuterol/Ipratropium 1 amp 09/21/16 14:00 09/22/16 06:29 Duoneb - NEB 1 amp TIDR SILVER Administration Chlorhexidine Gluconate 1 applic 09/18/16 22:00 09/21/16 22:21 Hibiclens For Decolonization - TP 1 applic HS SILVER Administration IV Flush 4 ml 09/18/16 20:31 Triple Lumen Flush IVPUSH PRN PRN Protocol Insulin Human Regular 100 100 mls @ 7 mls/hr 09/18/16 15:30 09/22/16 07:01 units/ Sodium Chloride IVPB 4 mls/hr TITR SILVER Administration Protocol 7 UNITS/HR Propofol 100 mls @ 2.722 mls/hr 09/18/16 15:00 09/21/16 18:21 Diprivan - IVPB 27.215 mls/hr TITR SILVER Administration Protocol 5 MCG/KG/MIN Famotidine/Sodium Chloride 50 mls @ 100 mls/hr 09/19/16 10:00 09/21/16 21:42 Pepcid 20 Mg Premixed Ivpb - IVPB 100 mls/hr BID SILVER Administration Fentanyl 500 mcg/ Dextrose 100 mls @ 10 mls/hr 09/19/16 01:30 09/22/16 02:22 IVPB 20 mls/hr TITR SILVER Administration 50 MCG/HR Midazolam HCl 100 mg/ Sodium 100 mls @ 1 mls/hr 09/19/16 09:30 09/21/16 17:42 Chloride IVPB 10 mls/hr TITR SILVER Administration Protocol 1 MG/HR Norepinephrine Bitartrate 8, 1,000 mls @ 37.5 mls/hr 09/19/16 11:00 09/21/16 03 :00 000 mcg/ Sodium Chloride IV 4 mcg/min TITR SILVER Titration Protocol 5 MCG/MIN Piperacillin Sod/Tazobactam Sod 50 mls @ 100 mls/hr 09/20/16 09:00 09/22/16 02: 23 Zosyn 3.375gm Ivpb (Pre-Docked) IVPB 100 mls/hr Q8H-IV SILVER Administration Protocol Thiamine HCl 200 mg/ 1,012.2 mls @ 42.175 mls/hr 09/21/16 11:00 09/21/16 13:19 Multivitamins/Minerals 10 ml/ IVPB 09/22/16 10:59 42.175 mls/hr Folic Acid 1 mg/ Sodium ONCE ONE Administration Chloride Mupirocin 1 applic 09/18/16 22:00 09/21/16 22:18 Bactroban Ointment (For Decolonization) - NS 09/23/16 21:59 1 applic BID SILVER Administration Thiamine HCl 200 mg 09/19/16 10:00 09/21/16 09:36 Vitamin B1 Injection - IVPB 200 mg DAILY SILVER Administration AP: DKA: Blood sugar improving Respiratory failure ? Pancreatitis: GI consult noted, Pancreas normal on CT abd Sepsis Lactic Acidosis SEAN Hypokalemia Improving acidosis Continue Insulin drip BGM Q Hr Adjust Insulin drip rate as necessary Electrolyte replacement as necessary Pressure support IV abx Awaiting CT abd
--- NOTE | 2016-09-22 10:26 | PN ---
Progress Note (short form) - Note Progress Note: sedated intubated cooling blanket off pressors Vital Signs Period Temp Pulse Resp BP Sys/Gould Pulse Ox Last 24 Hr 98.6 F-100.3 F 101-118 14-35 95-147/50-102 cor-rrr lungs decreased bs at bases abd soft,nt ext no edema CBC, BMP 09/22/16 07:30 09/22/16 05:15 Microbiology 09/19/16 13:05 Blood - Central Line Blood Culture - Preliminary NO GROWTH OBTAINED AFTER 48 HOURS, INCUBATION TO CONTINUE FOR 3 DAYS. 09/19/16 11:22 Blood - Central Line Blood Culture - Preliminary NO GROWTH OBTAINED AFTER 48 HOURS, INCUBATION TO CONTINUE FOR 3 DAYS. 09/18/16 14:00 Blood - Peripheral Venous Blood Culture - Preliminary NO GROWTH OBTAINED AFTER 72 HOURS, INCUBATION TO CONTINUE FOR 2 DAYS. 09/18/16 14:00 Blood - Peripheral Venous Blood Culture - Preliminary NO GROWTH OBTAINED AFTER 72 HOURS, INCUBATION TO CONTINUE FOR 2 DAYS. 09/18/16 22:00 Cerebral Spinal Fluid - Lumbar Puncture Gram Stain - Final 09/18/16 22:00 Cerebral Spinal Fluid - Lumbar Puncture CSF Culture - Final NO GROWTH AFTER 48 HOURS INCUBATION 09/18/16 14:20 Urine - Urine - Catheterized Urine Culture - Final NO GROWTH OBTAINED 09/18/16 22:00 Cerebral Spinal Fluid - Lumbar Puncture Gram Stain - Final head ct with sinusitis Current Medications Albuterol/Ipratropium (Duoneb -) 1 amp NEB TIDR SILVER Last Admin: 09/22/16 06:29 Dose: 1 amp Chlorhexidine Gluconate (Hibiclens For Decolonization -) 1 applic TP HS SILVER Last Admin: 09/21/16 22:21 Dose: 1 applic IV Flush (Triple Lumen Flush) 4 ml IVPUSH PRN PRN PRN Reason: Protocol Insulin Human Regular 100 (units/ Sodium Chloride) 100 mls @ 7 mls/hr IVPB TITR SILVER; 7 UNITS/HR PRN Reason: Protocol Last Admin: 09/22/16 07:01 Dose: 4 mls/hr Propofol (Diprivan -) 100 mls @ 2.722 mls/hr IVPB TITR SILVER; 5 MCG/KG/MIN PRN Reason: Protocol Last Admin: 09/21/16 18:21 Dose: 27.215 mls/hr Famotidine/Sodium Chloride (Pepcid 20 Mg Premixed Ivpb -) 50 mls @ 100 mls/hr IVPB BID [facility] Last Admin: 09/21/16 21:42 Dose: 100 mls/hr Fentanyl 500 mcg/ Dextrose 100 mls @ 10 mls/hr IVPB TITR SILVER PRN Reason: 50 MCG/HR Last Admin: 09/22/16 02:22 Dose: 20 mls/hr Midazolam HCl 100 mg/ Sodium (Chloride) 100 mls @ 1 mls/hr IVPB TITR SILVER; 1 MG/ HR PRN Reason: Protocol Last Admin: 09/21/16 17:42 Dose: 10 mls/hr Norepinephrine Bitartrate 8, (000 mcg/ Sodium Chloride) 1,000 mls @ 37.5 mls/ hr IV TITR SILVER; 5 MCG/MIN PRN Reason: Protocol Last Titration: 09/21/16 03:00 Dose: 4 mcg/min Piperacillin Sod/Tazobactam Sod (Zosyn 3.375gm Ivpb (Pre-Docked)) 50 mls @ 100 mls/hr IVPB Q8H-IV SILVER PRN Reason: Protocol Last Admin: 09/22/16 02:23 Dose: 100 mls/hr Thiamine HCl 200 mg/Multivitamins/Minerals 10 ml/Folic Acid 1 mg/ Sodium Chloride 1,012.2 mls @ 42.175 mls/hr IVPB ONCE ONE Stop: 09/22/16 10:59 Last Admin: 09/21/16 13:19 Dose: 42.175 mls/hr Mupirocin (Bactroban Ointment (For Decolonization) -) 1 applic NS BID [facility] Stop: 09/23/16 21:59 Last Admin: 09/21/16 22:18 Dose: 1 applic Thiamine HCl (Vitamin B1 Injection -) 200 mg IVPB DAILY [facility] Last Admin: 09/21/16 09:36 Dose: 200 mg a/p respiratory failure multiorgan failure DKA fevers substance abuse by history- hiv negative recent return from [place]- was taking multiple meds from [place] per family- herbal remedies continue zosyn repeat ABG Problem List - Problems (1) DKA (diabetic ketoacidosis) Code(s): E13.10 - OTH DIABETES MELLITUS WITH KETOACIDOSIS WITHOUT COMA Qualifiers: Diabetes mellitus type: type 1 Diabetes mellitus complication detail: with coma Qualified Code(s): E10.11 - Type 1 diabetes mellitus with ketoacidosis with coma (2) Acute renal insufficiency Code(s): N28.9 - DISORDER OF KIDNEY AND URETER, UNSPECIFIED (3) Respiratory failure Code(s): J96.90 - RESPIRATORY FAILURE, UNSP, UNSP W HYPOXIA OR HYPERCAPNIA (4) Leukocytosis Code(s): D72.829 - ELEVATED WHITE BLOOD CELL COUNT, UNSPECIFIED
[2016-09-22] MEDS: FAMOTIDINE 20 MG/50 ML IVPB 50 ML IVPB SCH ×2 (10:30→21:55)
[2016-09-22] MEDS: THIAMINE HCL 200 MG/2 ML VIAL IVPB SCH (10:30)
[2016-09-22] MEDS: MUPIROCIN 2% TOPICAL OINTMENT FOR DECOLONIZATION NS SCH ×2 (10:30→21:46)
[2016-09-22] MEDS: PROPOFOL 100 ML IVPB SCH ×2 (11:00→17:26)
[2016-09-22] MEDS ORDERED: SODIUM BICARBONATE 8.4% - 150 MEQ in DEXTROSE 5%-WATER - 1,000 ML IV SCH (11:45)
[2016-09-22] MEDS: MIDAZOLAM 100 MG in SODIUM CHLORIDE 100 ML IVPB SCH (11:47)
--- NOTE | 2016-09-22 12:12 | PN ---
Teaching Attending Note Name of Resident: Pilo Gonzales ATTENDING PHYSICIAN STATEMENT I saw and evaluated the patient. I reviewed the resident's note and discussed the case with the resident. I agree with the resident's findings and plan as documented. SUBJECTIVE: Pt seen and examined in the ICU. Remains intubated, sedated. Off pressors. Low grade temp this AM. CT head unremarkable, CT A/P showing RLL consolidation but without acute intra-abdominal pathology. OBJECTIVE: Last Vital Signs Temp Pulse Resp BP Pulse Ox 100.3 F H 116 H 16 130/82 99 09/22/16 06:00 09/22/16 10:28 09/22/16 12:03 09/22/16 10:00 09/22/16 10:28 Intake & Output 09/19/16 09/20/16 09/21/16 09/22/16 23:59 23:59 23:59 23:59 Intake Total 9256.8 3613.2 2831.9 2660 Output Total 2600 3000 3400 800 Balance 6656.8 613.2 -568.1 1860 Weight 194 lb 7 oz 218 lb 6 oz 223 lb 9.6 oz 224 lb 6.889 oz Gen: intubated, sedated Heart: tachycardic, regular Lung: decreased breath sounds at the bases Abd: soft, nontender Ext: trace edema CBC, BMP 09/22/16 07:30 09/22/16 05:15 Active Medications Albuterol/Ipratropium (Duoneb -) 1 amp NEB QIDR SILVER Chlorhexidine Gluconate (Hibiclens For Decolonization -) 1 applic TP HS SILVER Last Admin: 09/21/16 22:21 Dose: 1 applic IV Flush (Triple Lumen Flush) 4 ml IVPUSH PRN PRN PRN Reason: Protocol Insulin Human Regular 100 (units/ Sodium Chloride) 100 mls @ 7 mls/hr IVPB TITR SILVER; 7 UNITS/HR PRN Reason: Protocol Last Admin: 09/22/16 07:01 Dose: 4 mls/hr Propofol (Diprivan -) 100 mls @ 2.722 mls/hr IVPB TITR SILVER; 5 MCG/KG/MIN PRN Reason: Protocol Last Admin: 09/22/16 11:00 Dose: 16.329 mls/hr Famotidine/Sodium Chloride (Pepcid 20 Mg Premixed Ivpb -) 50 mls @ 100 mls/hr IVPB BID COUNT INCLUDES THE [facility] Last Admin: 09/22/16 10:30 Dose: 100 mls/hr Fentanyl 500 mcg/ Dextrose 100 mls @ 10 mls/hr IVPB TITR SILVER PRN Reason: 50 MCG/HR Last Admin: 09/22/16 02:22 Dose: 20 mls/hr Midazolam HCl 100 mg/ Sodium (Chloride) 100 mls @ 1 mls/hr IVPB TITR SILVER; 1 MG/ HR PRN Reason: Protocol Last Admin: 09/22/16 11:47 Dose: 10 mls/hr Norepinephrine Bitartrate 8, (000 mcg/ Sodium Chloride) 1,000 mls @ 37.5 mls/ hr IV TITR SILVER; 5 MCG/MIN PRN Reason: Protocol Last Titration: 09/21/16 03:00 Dose: 4 mcg/min Piperacillin Sod/Tazobactam Sod (Zosyn 3.375gm Ivpb (Pre-Docked)) 50 mls @ 100 mls/hr IVPB Q8H-IV SILVER PRN Reason: Protocol Last Admin: 09/22/16 02:23 Dose: 100 mls/hr Sodium Bicarbonate 150 meq/ (Dextrose) 1,150 mls @ 60 mls/hr IV Q19H SILVER Mupirocin (Bactroban Ointment (For Decolonization) -) 1 applic NS BID COUNT INCLUDES THE [facility] Stop: 09/23/16 21:59 Last Admin: 09/22/16 10:30 Dose: 1 applic Thiamine HCl (Vitamin B1 Injection -) 200 mg IVPB DAILY COUNT INCLUDES THE [facility] Last Admin: 09/22/16 10:30 Dose: 200 mg ASSESSMENT AND PLAN: Acute Respiratory Failure Polysubstance Abuse Diabetic Ketoacidosis Metabolic Acidosis r/o Acute Pancreatitis r/o Septic Shock Acute Kidney Injury Lactic Acidosis Elevated LFTs ?Alcohol Withdrawal - continue antibiotics - resume bicarb gtt - monitor urine output, creatinine - keep CVP 8-12 - increase free water via GT - monitoring off pressors, maintain MAP >65 - replete lytes - sedate for vent synchrony and ?DTs - not a candidate for weaning at this time due to sedation requirements - spontaneous breathing trials as tolerated when mental status improved - enteral feeds - DVT/GI prophylaxis - continue ICU monitoring critical care time spent in reviewing chart, evaluating patient and formulating plan 36 min
--- NOTE | 2016-09-22 13:06 | PN ---
Teaching Attending Note Name of Resident: Danny Shine ATTENDING PHYSICIAN STATEMENT I saw and evaluated the patient. I reviewed the resident's note and discussed the case with the resident. I agree with the resident's findings and plan as documented. SUBJECTIVE: Patient is sedated on vent. OBJECTIVE: Vital Signs Period Temp Pulse Resp BP Sys/Gould Pulse Ox Last 24 Hr 98.6 F-100.3 F 101-118 14-28 95-130/50-82 99-116 HEART: S1 S2, tachycardic LUNGS: Clear ABDOMEN: Soft, non-distended, normal BS EXTREMITIES: 1+ edema. ecchymoses x 2 on right forearm ASSESSMENT AND PLAN: Patient is a 25M with PMHx of Asthma, cocaine use, etoh abuse , liver disease as per uncle, presents to the ED in DKA # Acute respiratory Failure intubated sedated in ICU continue sedation Propofol and Midazolam IV , further management per iCU team # Severe sepsis (Acute hypothermia, leukocytosis) on IVF, s/p Rocephin now on a broad spectrum ABX Zosyn day #2 as per ID, s/p LP looks like traumatic infection. blood culture, ua, urine culture is ordered , s/p one dose of Vancomycin 1500mg, and on Rocephin 2gm IV daily. ID on the case patient is having multi-organ failure ,f/u CSF cultures # Acute DKA ;with Hemoglobin A1c 12 , on the case managing DKA with electrolyte adjustments as per as well . if blood glucose drops to below 250 restart dextrose containing fluids ; continue 1/2 normal saline @ 75ml/hr s/p bicarb gtt , now on bicarb ampule q12h run over [address] Espinoza ( nephrology) replete potassium aggressively PRN # Acute renal failure IVF repeat cmp every 4 hrs ; Nephrology consult appreciated Cr 2.1 renal work up in process # Acute transaminitis/questionable history of Liver disease: likely from shock liver from hypoperfusion vs alcoholic liver disease Liver US showed fatty liver likely from alcoholism ;Aggressive IVF hydration and volume repletion; GI consult appreciated , repeat LFTs, CT Abdomen and pelvis with po contrast can not give IV contrast as patient is in renal failure # Acute thrombocytopenia: possible HIT2, will hold heparin and consult with Send serotonin release assay #Possible DIC: send Fibrin split products ,send fibrinogen, LDH haptoglobin, Coags WNL #Possible seizure activity vs withdrwel from ETOH when sedation is held. Neuro consult # Hx of EToh and cocaine , with normal CPK . On folic acid/thiamine continue # Ingestion of multiple Herbal supplements ( unknown amounts and unknown reason ) #Hematuria: from traumatic arnold insertion resolved # Acute Hypernatremia ; nephrology is on the case. 1/2NS at 75cc/hr #Hx of Asthma: intubated at this time HIV test ordered as per iD DVT Px: stopped heparin due to thrombocytopenia Head CT and abdominal cT with po contrast since the patient is in renal failure once patient is stable enough to have CT
--- NOTE | 2016-09-22 13:43 | PN ---
GI Progress Note Subjective: Remains intubated. Now off pressors Continued high fevers requiring cooling blanket Bottles of what appears to be multiple herbal supplements were found in his belongings along with a bag of ? unlabeled dried herbs No diarrhea - Objective Vital Signs: Vital Signs Temperature 100.3 F H 09/22/16 06:00 Pulse Rate 116 H 09/22/16 10:28 Respiratory Rate 16 09/22/16 12:03 Blood Pressure 130/82 09/22/16 10:00 O2 Sat by Pulse Oximetry (%) 99 09/22/16 10:28 Constitutional: Calm Eyes: Yes: PERRL. No: Sclera Icterus Cardiovascular: Yes: Tachycardia (Heart sounds obscured by upper airway congestion) Respiratory: Yes: Rhonchi Gastrointestinal Inspection: No: Distention ...Auscultate: Yes: Normoactive Bowel Sounds ...Palpate: No: Hepatomegaly, Splenomegaly, Tenderness (no grimacing upon palpation) ...Percussion: No: Tympanitic Extremities: Yes: Other (ecchymoses of right upper extremity) Edema: Yes Neurological: Yes: Other (sedated / intubated) Labs: CBC, BMP 09/22/16 07:30 09/22/16 05:15 INR, PTT INR 0.99 (0.82-1.09) 09/22/16 05:15 Fibrinogen 372.0 mg/dL (238-498) D 09/22/16 05:15 Hepatic Panel Total Bilirubin 0.7 mg/dL (0.2-1.0) 09/22/16 05:15 Direct Bilirubin 0.2 mg/dL (0.0-0.2) D 09/19/16 03:20 AST 267 U/L (15-37) H D 09/22/16 05:15 ALT 189 U/L (12-78) H 09/22/16 05:15 Alkaline Phosphatase 284 U/L (45-117) H D 09/22/16 05:15 Albumin 1.6 g/dl (3.4-5.0) L 09/22/16 05:15 Laboratory Tests 09/19/16 06:05 Hepatitis A Ab Total Positive Hep Bs Antigen Negative Hep Bs Antibody Non reactive Hep B Core Total Ab Negative Hepatitis C Antibody <0.1 - ....Imaging Cat Scan: Report Reviewed, Image Reviewed (? peripheral liver lesion No obvious liver abscess) Problem List - Problems (1) Abnormal liver enzymes Assessment/Plan: Fatty liver noted on imaging studies however LDT's graciela during admission ? if reactive secondary to systemic process / multiorgan failure with metabolic derangements / acidosis secondary to DKA Agree with Dr. Koehler that alternate etiologies need to be considered as well including alcoholic hepatitis with ? of pancreatitis however pancreas on CT scan appeared normal (taking into account lack of IV contrast) Monitor LFTs Supportive measures Critically ill Code(s): R74.8 - ABNORMAL LEVELS OF OTHER SERUM ENZYMES
[2016-09-22 14:13] LABS: HEP B SURFACE AB Non Reactive (.)
--- NOTE | 2016-09-22 14:44 | PN ---
Progress Note (short form) - Note Progress Note: Neurology The patient is a 25 year old male, with a significant past medical history of asthma, who presented to the emergency department several days ago for altered mental status. Reportedly, the patient recently returned from [place] and stated he was not feeling well, but could not localize his symptoms. The patient has a history of cocaine use. Spoke to resident and the patient has had elevated liver enzymes, also with DKA, has been having fevers, underwent spinal tap with RBC of 70,000 and 30,000 with elevated WBC and elevated glucose and protein. Completed head CT and without acute changes. MRI would difficult as he is intubated on mechanical ventilation though he is overbreathing the vent. Is on sedation and plan for sedation through withdrawal period. Active Medications Albuterol/Ipratropium (Duoneb -) 1 amp NEB QIDR SILVER Last Admin: 09/22/16 14:10 Dose: 1 amp Chlorhexidine Gluconate (Hibiclens For Decolonization -) 1 applic TP HS SILVER Last Admin: 09/21/16 22:21 Dose: 1 applic IV Flush (Triple Lumen Flush) 4 ml IVPUSH PRN PRN PRN Reason: Protocol Insulin Human Regular 100 (units/ Sodium Chloride) 100 mls @ 7 mls/hr IVPB TITR SILVER; 7 UNITS/HR PRN Reason: Protocol Last Admin: 09/22/16 07:01 Dose: 4 mls/hr Propofol (Diprivan -) 100 mls @ 2.722 mls/hr IVPB TITR SILVER; 5 MCG/KG/MIN PRN Reason: Protocol Last Admin: 09/22/16 11:00 Dose: 16.329 mls/hr Famotidine/Sodium Chloride (Pepcid 20 Mg Premixed Ivpb -) 50 mls @ 100 mls/hr IVPB BID SILVER Last Admin: 09/22/16 10:30 Dose: 100 mls/hr Fentanyl 500 mcg/ Dextrose 100 mls @ 10 mls/hr IVPB TITR SILVER PRN Reason: 50 MCG/HR Last Admin: 09/22/16 02:22 Dose: 20 mls/hr Midazolam HCl 100 mg/ Sodium (Chloride) 100 mls @ 1 mls/hr IVPB TITR SILVER; 1 MG/ HR PRN Reason: Protocol Last Admin: 09/22/16 11:47 Dose: 10 mls/hr Norepinephrine Bitartrate 8, (000 mcg/ Sodium Chloride) 1,000 mls @ 37.5 mls/ hr IV TITR SILVER; 5 MCG/MIN PRN Reason: Protocol Last Titration: 09/21/16 03:00 Dose: 4 mcg/min Piperacillin Sod/Tazobactam Sod (Zosyn 3.375gm Ivpb (Pre-Docked)) 50 mls @ 100 mls/hr IVPB Q8H-IV SILVER PRN Reason: Protocol Last Admin: 09/22/16 02:23 Dose: 100 mls/hr Sodium Bicarbonate 150 meq/ (Dextrose) 1,150 mls @ 60 mls/hr IV Q19H [facility] Mupirocin (Bactroban Ointment (For Decolonization) -) 1 applic NS BID SILVER Stop: 09/23/16 21:59 Last Admin: 09/22/16 10:30 Dose: 1 applic Thiamine HCl (Vitamin B1 Injection -) 200 mg IVPB DAILY SILVER Last Admin: 09/22/16 10:30 Dose: 200 mg *Physical Exam GENERAL: Difficult to arouse even with painful stimuli HEAD: No signs of trauma EYES: Pupils small but reactive, EOMI, sclera anicteric, conjunctiva clear ENT: Auricles normal inspection, hearing grossly normal, nares patent, oropharynx clear without exudates. Moist mucosa NECK: Normal ROM, supple, no lymphadenopathy, JVD, or masses LUNGS: Respiration is kuz-mal. No wheezes, and no crackles HEART: Regular rate and rhythm, normal S1 and S2, no murmurs, rubs or gallops ABDOMEN: Tender and slightly firm. Normoactive bowel sounds. No guarding, no rebound. No masses EXTREMITIES: Normal range of motion, no edema. No clubbing or cyanosis. No cords, erythema, or tenderness NEUROLOGICAL: Cranial nerves II through XII grossly intact. Normal speech, normal gait SKIN: Mottled and cool to the touch. Dry, normal turgor, no rashes or lesions noted. CBCD WBC 6.0 K/mm3 (4.0-10.0) D 09/21/16 04:20 RBC 2.93 M/mm3 (4.00-5.60) L 09/21/16 04:20 Hgb 9.3 GM/dL (11.7-16.9) L 09/21/16 04:20 Hct 26.2 % (35.4-49) L 09/21/16 04:20 MCV 89.5 fl (80-96) 09/21/16 04:20 MCHC 35.6 g/dl (32.0-35.9) 09/21/16 04:20 RDW 14.6 % (11.9-15.9) 09/21/16 04:20 Plt Count 90 K/MM3 (134-434) L D 09/21/16 04:20 MPV 11.2 fl (7.5-11.1) H 09/21/16 04:20 CMP Sodium 153 mmol/L (136-145) H 09/21/16 09:55 Potassium 3.7 mmol/L (3.5-5.1) 09/21/16 09:55 Chloride 127 mmol/L (98-107) H 09/21/16 09:55 Carbon Dioxide 18 mmol/L (21-32) L D 09/21/16 09:55 Anion Gap 8 (8-16) 09/21/16 09:55 BUN 31 mg/dL (7-18) H 09/21/16 09:55 Creatinine 2.4 mg/dL (0.7-1.3) H 09/21/16 09:55 Creat Clearance w eGFR 30.48 (>60) 09/21/16 04:20 Calcium 7.2 mg/dL (8.5-10.1) L 09/21/16 09:55 Total Bilirubin 0.6 mg/dL (0.2-1.0) D 09/21/16 04:20 AST 389 U/L (15-37) H D 09/21/16 04:20 ALT 165 U/L (12-78) H D 09/21/16 04:20 Alkaline Phosphatase 175 U/L (45-117) H D 09/21/16 04:20 Total Protein 4.1 g/dl (6.4-8.2) L 09/21/16 04:20 Albumin 1.6 g/dl (3.4-5.0) L 09/21/16 04:20 Medical Decision Making 25 year old male, with a significant past medical history of asthma, who presented to the emergency department several days ago for altered mental status. Reportedly, the patient recently returned from [place] and stated he was not feeling well, but could not localize his symptoms. The patient has a history of cocaine use. Spoke to resident and the patient has had elevated liver enzymes, also with DKA, has been having fevers, underwent spinal tap with RBC of 70,000 and 30,000 with elevated WBC and elevated glucose and protein. Has not had any imaging of head and MRI would difficult as he is intubated on mechanical ventilation though he is overbreathing the vent. CT head stable. Continue aggresive medical mgmt. Mention of jerking activity when sedation weans which may be 2/2 to withdrawal. Continue monitoring labs and CSF cultures. Seems to be toxic metabolic process and hopefully reversible. Will follow closely.
--- NOTE | 2016-09-22 16:57 | PN ---
Progress Note, Physician History of Present Illness: Pt seen and examined at bedside. He remains in the ICU. He remains intubated. - Current Medication List Current Medications: Active Medications Albuterol/Ipratropium (Duoneb -) 1 amp NEB QIDR SILVER Last Admin: 09/22/16 14:10 Dose: 1 amp Chlorhexidine Gluconate (Hibiclens For Decolonization -) 1 applic TP HS SILVER Last Admin: 09/21/16 22:21 Dose: 1 applic IV Flush (Triple Lumen Flush) 4 ml IVPUSH PRN PRN PRN Reason: Protocol Insulin Human Regular 100 (units/ Sodium Chloride) 100 mls @ 7 mls/hr IVPB TITR SILVER; 7 UNITS/HR PRN Reason: Protocol Last Admin: 09/22/16 14:49 Dose: 5 mls/hr Propofol (Diprivan -) 100 mls @ 2.722 mls/hr IVPB TITR SILVER; 5 MCG/KG/MIN PRN Reason: Protocol Last Admin: 09/22/16 11:00 Dose: 16.329 mls/hr Famotidine/Sodium Chloride (Pepcid 20 Mg Premixed Ivpb -) 50 mls @ 100 mls/hr IVPB BID SILVER Last Admin: 09/22/16 10:30 Dose: 100 mls/hr Fentanyl 500 mcg/ Dextrose 100 mls @ 10 mls/hr IVPB TITR SILVER PRN Reason: 50 MCG/HR Last Admin: 09/22/16 16:04 Dose: 10 mls/hr Midazolam HCl 100 mg/ Sodium (Chloride) 100 mls @ 1 mls/hr IVPB TITR SILVER; 1 MG/ HR PRN Reason: Protocol Last Admin: 09/22/16 11:47 Dose: 10 mls/hr Norepinephrine Bitartrate 8, (000 mcg/ Sodium Chloride) 1,000 mls @ 37.5 mls/ hr IV TITR SILVER; 5 MCG/MIN PRN Reason: Protocol Last Titration: 09/21/16 03:00 Dose: 4 mcg/min Piperacillin Sod/Tazobactam Sod (Zosyn 3.375gm Ivpb (Pre-Docked)) 50 mls @ 100 mls/hr IVPB Q8H-IV SILVER PRN Reason: Protocol Last Admin: 09/22/16 11:00 Dose: 100 mls/hr Sodium Bicarbonate 150 meq/ (Dextrose) 1,150 mls @ 60 mls/hr IV Q19H [facility] Last Admin: 09/22/16 13:00 Dose: 60 mls/hr Mupirocin (Bactroban Ointment (For Decolonization) -) 1 applic NS BID [facility] Stop: 09/23/16 21:59 Last Admin: 09/22/16 10:30 Dose: 1 applic Thiamine HCl (Vitamin B1 Injection -) 200 mg IVPB DAILY [facility] Last Admin: 09/22/16 10:30 Dose: 200 mg - Objective Vital Signs: Vital Signs Temperature 100.3 F H 09/22/16 06:00 Pulse Rate 117 H 09/22/16 14:00 Respiratory Rate 20 09/22/16 14:15 Blood Pressure 138/82 09/22/16 14:00 O2 Sat by Pulse Oximetry (%) 99 09/22/16 10:28 Constitutional: Yes: Calm Eyes: Yes: Conjunctiva Clear HENT: Yes: Atraumatic Cardiovascular: Yes: S1, S2 Respiratory: Yes: Mechanically Ventilated Gastrointestinal: Yes: Soft, Abdomen, Obese Genitourinary: Yes: Kelly Present Musculoskeletal: Yes: Muscle Weakness Edema: Yes Edema: LUE: 1+, RUE: 1+, LLE: 1+, RLE: 1+ Integumentary: Yes: Other (area of bruiding on right arm) Neurological: Yes: Other (sedated) Labs: CBC, BMP 09/22/16 07:30 09/22/16 05:15 INR, PTT INR 0.99 (0.82-1.09) 09/22/16 05:15 Fibrinogen 372.0 mg/dL (238-498) D 09/22/16 05:15 - ....Imaging Cat Scan: Report Reviewed Problem List - Problems (1) Acute renal insufficiency Code(s): N28.9 - DISORDER OF KIDNEY AND URETER, UNSPECIFIED (2) Altered mental status Code(s): R41.82 - ALTERED MENTAL STATUS, UNSPECIFIED Qualifiers: Altered mental status type: stupor Qualified Code(s): R40.1 - Stupor (3) Lactic acidosis Code(s): E87.2 - ACIDOSIS (4) Leukocytosis Code(s): D72.829 - ELEVATED WHITE BLOOD CELL COUNT, UNSPECIFIED (5) Respiratory failure Code(s): J96.90 - RESPIRATORY FAILURE, UNSP, UNSP W HYPOXIA OR HYPERCAPNIA Assessment/Plan Current Medications Generic Name Dose Route Start Last Admin Trade Name Freq PRN Reason Stop Dose Admin Albuterol/Ipratropium 1 amp 09/22/16 12:15 09/22/16 14:10 Duoneb - NEB 1 amp QIDR SILVER Administration Chlorhexidine Gluconate 1 applic 09/18/16 22:00 09/21/16 22:21 Hibiclens For Decolonization - TP 1 applic HS SILVER Administration IV Flush 4 ml 09/18/16 20:31 Triple Lumen Flush IVPUSH PRN PRN Protocol Insulin Human Regular 100 100 mls @ 7 mls/hr 09/18/16 15:30 09/22/16 14:49 units/ Sodium Chloride IVPB 5 mls/hr TITR SILVER Administration Protocol 7 UNITS/HR Propofol 100 mls @ 2.722 mls/hr 09/18/16 15:00 09/22/16 11:00 Diprivan - IVPB 16.329 mls/hr TITR SILVER Administration Protocol 5 MCG/KG/MIN Famotidine/Sodium Chloride 50 mls @ 100 mls/hr 09/19/16 10:00 09/22/16 10:30 Pepcid 20 Mg Premixed Ivpb - IVPB 100 mls/hr BID SILVER Administration Fentanyl 500 mcg/ Dextrose 100 mls @ 10 mls/hr 09/19/16 01:30 09/22/16 16:04 IVPB 10 mls/hr TITR SILVER Administration 50 MCG/HR Midazolam HCl 100 mg/ Sodium 100 mls @ 1 mls/hr 09/19/16 09:30 09/22/16 11:47 Chloride IVPB 10 mls/hr TITR SILVER Administration Protocol 1 MG/HR Norepinephrine Bitartrate 8, 1,000 mls @ 37.5 mls/hr 09/19/16 11:00 09/21/16 03 :00 000 mcg/ Sodium Chloride IV 4 mcg/min TITR SILVER Titration Protocol 5 MCG/MIN Piperacillin Sod/Tazobactam Sod 50 mls @ 100 mls/hr 09/20/16 09:00 09/22/16 11: 00 Zosyn 3.375gm Ivpb (Pre-Docked) IVPB 100 mls/hr Q8H-IV [facility]IL[facility] Administration Protocol Sodium Bicarbonate 150 meq/ 1,150 mls @ 60 mls/hr 09/22/16 11:45 09/22/16 13:00 Dextrose IV 60 mls/hr Q19H [facility] Administration Mupirocin 1 applic 09/18/16 22:00 09/22/16 10:30 Bactroban Ointment (For Decolonization) - NS 09/23/16 21:59 1 applic BID SILVER Administration Thiamine HCl 200 mg 09/19/16 10:00 09/22/16 10:30 Vitamin B1 Injection - IVPB 200 mg DAILY SILVER Administration Laboratory Tests 09/19/16 09/19/16 09/19/16 06:05 06:05 11:14 CLARICE M-James [facility]IR[facility] Screen c-ANCA Proteinase 3 (PR3) p-ANCA Atypical p-ANCA Myeloperoxidase Ab Double Strand DNA Ab Glomerular Base Memb Ab Hep-Induced Plt Ab Rapid Complement C3 Complement C4 RPR Titer Nonreactive Hep A IgM Ab Confirm Negative Hepatitis A Ab Total Positive H Hep Bs Antigen Negative Hep Bs Antibody Non reactive Hep B Core Total Ab Negative Hepatitis C Antibody <0.1 HIV 1&2 Antibody Screen Negative HIV P24 Antigen Negative 09/19/16 09/21/16 09/22/16 19:30 11:00 14:20 CLARICE M-James Not observed VIRG[facility] Screen Pending c-ANCA Pending Proteinase 3 (PR3) Pending p-ANCA Pending Atypical p-ANCA Pending Myeloperoxidase Ab Pending Double Strand DNA Ab <1 Glomerular Base Memb Ab Pending Hep-Induced Plt Ab Rapid Pending Complement C3 Pending Complement C4 Pending RPR Titer Hep A IgM Ab Confirm Hepatitis A Ab Total Hep Bs Antigen Hep Bs Antibody Hep B Core Total Ab Hepatitis C Antibody HIV 1&2 Antibody Screen HIV P24 Antigen Impression 1. SEAN 2. metabolic acidosis 3. gross hematuria 4. DKA 5. sepsis 6. lactic acidosis 7. acute respiratory failure requiring intubation 8. etoh abuse - active 9. 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
[2016-09-22] MEDS ORDERED: SODIUM BICARBONATE 8.4% - 100 MEQ in DEXTROSE 5%-WATER - 1,000 ML IV SCH (16:58)
--- NOTE | 2016-09-22 17:02 | PN ---
Physical Exam: SUBJECTIVE: Patient seen and examined at bedside remains intubated and sedated remains febrile despite cooling blanket herbal supplements brought in by family and at bedside poison control contacted by ICU team-awaiting call back OBJECTIVE: Vital Signs Period Temp Pulse Resp BP Sys/Gould Pulse Ox Last 24 Hr 98.9 F-100.3 F 105-118 14-28 95-138/50-82 99-116 GENERAL: Intubated sedated. HEAD: Normal with no signs of trauma. EYES: Pupils equal, round and reactive to light, Sclera anicteric, Conjunctiva clear EARS, NOSE, THROAT:Moist mucous membranes. NECK: No JVD . LUNGS: . Bronchial breath sounds coarse breath sounds. No wheezes, and no crackles. Intubated. HEART: RRR S1 S2 no murmurs rubs or gallops ABDOMEN: Soft, nontender, not distended UPPER EXTREMITIES: warm, well-perfused. 1+ pitting edema LOWER EXTREMITIES: warm, well-perfused. Trace non pitting edema : arnold in place Laboratory Results - last 24 hr 09/19/16 09/19/16 09/21/16 06:05 19:30 11:00 WBC Corrected WBC (auto) RBC Hgb Hct MCV MCHC RDW Plt Count MPV Neutrophils % Lymphocytes % Monocytes % Eosinophils % Basophils % Differential Comment Smudge Cells Platelet Estimate Platelet Comment RBC Morphology Haptoglobin 188 INR PTT (Actin FS) Fibrinogen Puncture Site ABG pH ABG pCO2 at Pt Temp ABG pO2 at Pt Temp ABG HCO3 ABG O2 Sat (Measured) ABG O2 Content ABG Base Excess Dennis Test O2 Delivery Device Oxygen Flow Rate Vent Mode Vent Rate Mechanical Rate PEEP Pressure Support Vent Sodium Potassium Chloride Carbon Dioxide Anion Gap BUN Creatinine Creat Clearance w eGFR POC Glucometer Random Glucose Calcium Phosphorus Magnesium Total Bilirubin AST ALT Alkaline Phosphatase Prot Electrophoresis Serum Total Protein 4.1 L Total Protein Albumin 2.2 L Globulin 1.9 L Albumin/Globulin Ratio 1.2 Kzxoh-8-Zxsexelci 0.2 Ukfih-4-Ktpjhlilr 0.7 Beta Globulins 0.5 L Gamma Globulins 0.5 Urine Eosinophils None seen CLARICE M-James Not observed Hep A IgM Ab Confirm Negative Hepatitis A Ab Total Positive H Hep Bs Antigen Negative Hep Bs Antibody Non reactive Hep B Core Total Ab Negative 09/21/16 09/21/16 09/21/16 17:33 18:34 18:55 WBC Corrected WBC (auto) RBC Hgb Hct MCV MCHC RDW Plt Count MPV Neutrophils % Lymphocytes % Monocytes % Eosinophils % Basophils % Differential Comment Smudge Cells Platelet Estimate Platelet Comment RBC Morphology Haptoglobin INR PTT (Actin FS) 40.2 H Fibrinogen Puncture Site ABG pH ABG pCO2 at Pt Temp ABG pO2 at Pt Temp ABG HCO3 ABG O2 Sat (Measured) ABG O2 Content ABG Base Excess Dennis Test O2 Delivery Device Oxygen Flow Rate Vent Mode Vent Rate Mechanical Rate PEEP Pressure Support Vent Sodium Potassium Chloride Carbon Dioxide Anion Gap BUN Creatinine Creat Clearance w eGFR POC Glucometer [phone] Random Glucose Calcium Phosphorus Magnesium Total Bilirubin AST ALT Alkaline Phosphatase Prot Electrophoresis Serum Total Protein Total Protein Albumin Globulin Albumin/Globulin Ratio Krpot-1-Pdlndilgv Dqwez-4-Axyncbxrj Beta Globulins Gamma Globulins Urine Eosinophils CLARICE M-James Hep A IgM Ab Confirm Hepatitis A Ab Total Hep Bs Antigen Hep Bs Antibody Hep B Core Total Ab 09/21/16 09/21/16 09/21/16 18:55 18:55 18:55 WBC 7.6 Corrected WBC (auto) RBC 3.43 L Hgb 10.9 L D Hct 31.2 L D MCV 91.1 MCHC 34.8 RDW 15.5 Plt Count 102 L MPV 11.2 H Neutrophils % Lymphocytes % Monocytes % Eosinophils % Basophils % Differential Comment Smudge Cells Platelet Estimate Platelet Comment RBC Morphology Haptoglobin INR 1.04 PTT (Actin FS) Fibrinogen 636.0 H Puncture Site ABG pH ABG pCO2 at Pt Temp ABG pO2 at Pt Temp ABG HCO3 ABG O2 Sat (Measured) ABG O2 Content ABG Base Excess Dennis Test O2 Delivery Device Oxygen Flow Rate Vent Mode Vent Rate Mechanical Rate PEEP Pressure Support Vent Sodium Potassium Chloride Carbon Dioxide Anion Gap BUN Creatinine Creat Clearance w eGFR POC Glucometer Random Glucose Calcium Phosphorus Magnesium Total Bilirubin AST ALT Alkaline Phosphatase Prot Electrophoresis Serum Total Protein Total Protein Albumin Globulin Albumin/Globulin Ratio Gwdtl-3-Ccyhujcia Jrpbj-6-Ybjdxlslv Beta Globulins Gamma Globulins Urine Eosinophils CLARICE M-James Hep A IgM Ab Confirm Hepatitis A Ab Total Hep Bs Antigen Hep Bs Antibody Hep B Core Total Ab 09/21/16 09/21/16 09/22/16 21:05 22:16 00:05 WBC Corrected WBC (auto) RBC Hgb Hct MCV MCHC RDW Plt Count MPV Neutrophils % Lymphocytes % Monocytes % Eosinophils % Basophils % Differential Comment Smudge Cells Platelet Estimate Platelet Comment RBC Morphology Haptoglobin INR PTT (Actin FS) Fibrinogen Puncture Site ABG pH ABG pCO2 at Pt Temp ABG pO2 at Pt Temp ABG HCO3 ABG O2 Sat (Measured) ABG O2 Content ABG Base Excess Dennis Test O2 Delivery Device Oxygen Flow Rate Vent Mode Vent Rate Mechanical Rate PEEP Pressure Support Vent Sodium Potassium Chloride Carbon Dioxide Anion Gap BUN Creatinine Creat Clearance w eGFR POC Glucometer [phone] [phone] Random Glucose Calcium Phosphorus Magnesium Total Bilirubin AST ALT Alkaline Phosphatase Prot Electrophoresis Serum Total Protein Total Protein Albumin Globulin Albumin/Globulin Ratio Ixeje-4-Ytfsnfgcb Ijeep-1-Zrzjgkjhc Beta Globulins Gamma Globulins Urine Eosinophils CLARICE M-James Hep A IgM Ab Confirm Hepatitis A Ab Total Hep Bs Antigen Hep Bs Antibody Hep B Core Total Ab 09/22/16 09/22/16 09/22/16 01:29 03:04 05:15 WBC Cancelled Corrected WBC (auto) Cancelled RBC Cancelled Hgb Cancelled Hct Cancelled MCV Cancelled MCHC Cancelled RDW Cancelled Plt Count Cancelled MPV Cancelled Neutrophils % Cancelled Lymphocytes % Cancelled Monocytes % Cancelled Eosinophils % Cancelled Basophils % Cancelled Differential Comment Cancelled Smudge Cells Cancelled Platelet Estimate Cancelled Platelet Comment Cancelled RBC Morphology Cancelled Haptoglobin INR PTT (Actin FS) Fibrinogen Puncture Site ABG pH ABG pCO2 at Pt Temp ABG pO2 at Pt Temp ABG HCO3 ABG O2 Sat (Measured) ABG O2 Content ABG Base Excess Dennis Test O2 Delivery Device Oxygen Flow Rate Vent Mode Vent Rate Mechanical Rate PEEP Pressure Support Vent Sodium Potassium Chloride Carbon Dioxide Anion Gap BUN Creatinine Creat Clearance w eGFR POC Glucometer [phone] Random Glucose Calcium Phosphorus Magnesium Total Bilirubin AST ALT Alkaline Phosphatase Prot Electrophoresis Serum Total Protein Total Protein Albumin Globulin Albumin/Globulin Ratio Qozsu-4-Nejryhhdt Yfott-9-Riqnpgiwt Beta Globulins Gamma Globulins Urine Eosinophils CLARICE M-James Hep A IgM Ab Confirm Hepatitis A Ab Total Hep Bs Antigen Hep Bs Antibody Hep B Core Total Ab 09/22/16 09/22/16 09/22/16 05:15 05:15 05:15 WBC Corrected WBC (auto) RBC Hgb Hct MCV MCHC RDW Plt Count MPV Neutrophils % Lymphocytes % Monocytes % Eosinophils % Basophils % Differential Comment Smudge Cells Platelet Estimate Platelet Comment RBC Morphology Haptoglobin INR 0.99 PTT (Actin FS) 21.8 L D Fibrinogen 372.0 D Puncture Site ABG pH ABG pCO2 at Pt Temp ABG pO2 at Pt Temp ABG HCO3 ABG O2 Sat (Measured) ABG O2 Content ABG Base Excess Dennis Test O2 Delivery Device Oxygen Flow Rate Vent Mode Vent Rate Mechanical Rate PEEP Pressure Support Vent Sodium 149 H Potassium 4.5 D Chloride 125 H Carbon Dioxide 17 L Anion Gap 7 L BUN 31 H Creatinine 2.6 H Creat Clearance w eGFR 30.48 POC Glucometer Random Glucose 206 H Calcium 7.2 L Phosphorus 4.5 D Magnesium 1.8 Total Bilirubin 0.7 AST 267 H D ALT 189 H Alkaline Phosphatase 284 H D Prot Electrophoresis Serum Total Protein Total Protein 4.5 L Albumin 1.6 L Globulin Albumin/Globulin Ratio Ijzbu-9-Ayyrhhodt Bencv-7-Zdmtaruvw Beta Globulins Gamma Globulins Urine Eosinophils CLARICE M-James Hep A IgM Ab Confirm Hepatitis A Ab Total Hep Bs Antigen Hep Bs Antibody Hep B Core Total Ab 09/22/16 09/22/16 09/22/16 05:24 06:56 07:10 WBC Corrected WBC (auto) RBC Hgb Hct MCV MCHC RDW Plt Count MPV Neutrophils % Lymphocytes % Monocytes % Eosinophils % Basophils % Differential Comment Smudge Cells Platelet Estimate Platelet Comment RBC Morphology Haptoglobin INR PTT (Actin FS) Fibrinogen Puncture Site Left radial ABG pH 7.19 L* D ABG pCO2 at Pt Temp 42.8 D ABG pO2 at Pt Temp 123.0 H D ABG HCO3 15.7 L ABG O2 Sat (Measured) 98.7 ABG O2 Content 12.9 L ABG Base Excess -11.5 L* Dennis Test Positive O2 Delivery Device Vent Oxygen Flow Rate 40 Vent Mode A/c Vent Rate 14 Mechanical Rate Yes PEEP 5.0 Pressure Support Vent 450 Sodium Potassium Chloride Carbon Dioxide Anion Gap BUN Creatinine Creat Clearance w eGFR POC Glucometer [phone] Random Glucose Calcium Phosphorus Magnesium Total Bilirubin AST ALT Alkaline Phosphatase Prot Electrophoresis Serum Total Protein Total Protein Albumin Globulin Albumin/Globulin Ratio Fkyoa-0-Apasdlmaw Usixq-9-Zhcmkvxnx Beta Globulins Gamma Globulins Urine Eosinophils CLARICE M-James Hep A IgM Ab Confirm Hepatitis A Ab Total Hep Bs Antigen Hep Bs Antibody Hep B Core Total Ab 0409/22/16 09/22/16 07:30 07:37 09:03 WBC 8.0 Corrected WBC (auto) RBC 2.97 L Hgb 9.3 L D Hct 27.2 L MCV 91.6 MCHC 34.0 RDW 15.3 Plt Count 86 L MPV 10.4 Neutrophils % 73.7 Lymphocytes % 18.8 Monocytes % 6.1 D Eosinophils % 0.9 Basophils % 0.5 Differential Comment Smudge Cells Platelet Estimate Platelet Comment RBC Morphology Haptoglobin INR PTT (Actin FS) Fibrinogen Puncture Site ABG pH ABG pCO2 at Pt Temp ABG pO2 at Pt Temp ABG HCO3 ABG O2 Sat (Measured) ABG O2 Content ABG Base Excess Dennis Test O2 Delivery Device Oxygen Flow Rate Vent Mode Vent Rate Mechanical Rate PEEP Pressure Support Vent Sodium Potassium Chloride Carbon Dioxide Anion Gap BUN Creatinine Creat Clearance w eGFR POC Glucometer [phone] Random Glucose Calcium Phosphorus Magnesium Total Bilirubin AST ALT Alkaline Phosphatase Prot Electrophoresis Serum Total Protein Total Protein Albumin Globulin Albumin/Globulin Ratio Mdtnd-3-Ovpiskruy Zxuco-5-Bhnyvdpln Beta Globulins Gamma Globulins Urine Eosinophils CLARICE M-James Hep A IgM Ab Confirm Hepatitis A Ab Total Hep Bs Antigen Hep Bs Antibody Hep B Core Total Ab 09/22/16 09/22/16 09/22/16 10:25 11:24 12:31 WBC Corrected WBC (auto) RBC Hgb Hct MCV MCHC RDW Plt Count MPV Neutrophils % Lymphocytes % Monocytes % Eosinophils % Basophils % Differential Comment Smudge Cells Platelet Estimate Platelet Comment RBC Morphology Haptoglobin INR PTT (Actin FS) Fibrinogen Puncture Site ABG pH ABG pCO2 at Pt Temp ABG pO2 at Pt Temp ABG HCO3 ABG O2 Sat (Measured) ABG O2 Content ABG Base Excess Dennis Test O2 Delivery Device Oxygen Flow Rate Vent Mode Vent Rate Mechanical Rate PEEP Pressure Support Vent Sodium Potassium Chloride Carbon Dioxide Anion Gap BUN Creatinine Creat Clearance w eGFR POC Glucometer [phone] [phone] Random Glucose Calcium Phosphorus Magnesium Total Bilirubin AST ALT Alkaline Phosphatase Prot Electrophoresis Serum Total Protein Total Protein Albumin Globulin Albumin/Globulin Ratio Npisy-4-Qgtbttoxl Tgbkm-4-Winkawnjr Beta Globulins Gamma Globulins Urine Eosinophils CLARICE M-James Hep A IgM Ab Confirm Hepatitis A Ab Total Hep Bs Antigen Hep Bs Antibody Hep B Core Total Ab 09/22/16 09/22/16 09/22/16 13:35 14:47 16:09 WBC Corrected WBC (auto) RBC Hgb Hct MCV MCHC RDW Plt Count MPV Neutrophils % Lymphocytes % Monocytes % Eosinophils % Basophils % Differential Comment Smudge Cells Platelet Estimate Platelet Comment RBC Morphology Haptoglobin INR PTT (Actin FS) Fibrinogen Puncture Site ABG pH ABG pCO2 at Pt Temp ABG pO2 at Pt Temp ABG HCO3 ABG O2 Sat (Measured) ABG O2 Content ABG Base Excess Dennis Test O2 Delivery Device Oxygen Flow Rate Vent Mode Vent Rate Mechanical Rate PEEP Pressure Support Vent Sodium Potassium Chloride Carbon Dioxide Anion Gap BUN Creatinine Creat Clearance w eGFR POC Glucometer [phone] [phone] Random Glucose Calcium Phosphorus Magnesium Total Bilirubin AST ALT Alkaline Phosphatase Prot Electrophoresis Serum Total Protein Total Protein Albumin Globulin Albumin/Globulin Ratio Fkxgs-5-Jofdbuung Rqhuf-7-Qougzrwng Beta Globulins Gamma Globulins Urine Eosinophils CLARICE M-James Hep A IgM Ab Confirm Hepatitis A Ab Total Hep Bs Antigen Hep Bs Antibody Hep B Core Total Ab Active Medications Generic Name Dose Route Start Last Admin Trade Name Freq PRN Reason Stop Dose Admin Albuterol/Ipratropium 1 amp 09/22/16 12:15 09/22/16 14:10 Duoneb - NEB 1 amp QIDR SILVER Administration Chlorhexidine Gluconate 1 applic 09/18/16 22:00 09/21/16 22:21 Hibiclens For Decolonization - TP 1 applic HS SILVER Administration IV Flush 4 ml 09/18/16 20:31 Triple Lumen Flush IVPUSH PRN PRN Protocol Insulin Human Regular 100 100 mls @ 7 mls/hr 09/18/16 15:30 09/22/16 14:49 units/ Sodium Chloride IVPB 5 mls/hr TITR SILVER Administration Protocol 7 UNITS/HR Propofol 100 mls @ 2.722 mls/hr 09/18/16 15:00 09/22/16 11:00 Diprivan - IVPB 16.329 mls/hr TITR SILVER Administration Protocol 5 MCG/KG/MIN Famotidine/Sodium Chloride 50 mls @ 100 mls/hr 09/19/16 10:00 09/22/16 10:30 Pepcid 20 Mg Premixed Ivpb - IVPB 100 mls/hr BID SILVER Administration Fentanyl 500 mcg/ Dextrose 100 mls @ 10 mls/hr 09/19/16 01:30 09/22/16 16:04 IVPB 10 mls/hr TITR SILVER Administration 50 MCG/HR Midazolam HCl 100 mg/ Sodium 100 mls @ 1 mls/hr 09/19/16 09:30 09/22/16 11:47 Chloride IVPB 10 mls/hr TITR SILVER Administration Protocol 1 MG/HR Norepinephrine Bitartrate 8, 1,000 mls @ 37.5 mls/hr 09/19/16 11:00 09/21/16 03 :00 000 mcg/ Sodium Chloride IV 4 mcg/min TITR SILVER Titration Protocol 5 MCG/MIN Piperacillin Sod/Tazobactam Sod 50 mls @ 100 mls/hr 09/20/16 09:00 09/22/16 11: 00 Zosyn 3.375gm Ivpb (Pre-Docked) IVPB 100 mls/hr Q8H-IV SILVER Administration Protocol Sodium Bicarbonate 100 meq/ 1,100 mls @ 60 mls/hr 09/22/16 16:58 Dextrose IV Q19H SILVER Mupirocin 1 applic 09/18/16 22:00 09/22/16 10:30 Bactroban Ointment (For Decolonization) - NS 09/23/16 21:59 1 applic BID SILVER Administration Thiamine HCl 200 mg 09/19/16 10:00 09/22/16 10:30 Vitamin B1 Injection - IVPB 200 mg DAILY SILVER Administration ASSESSMENT/PLAN: 25M found down with no PMH of DM presents to the ED unresponsive in DKA and severe sepsis. Diabetic ketoacidosis: patient has likely been a diabetic for a long time and has been undiagnosed and this is his initial presentation of DKA from untreated type 1 DM bicarb gtt restarted AG closed BGM better controlled today remains on insulin gtt at 4 units/hr continue D5W with bicarg @ 60ml/hr Endocrinology consult appreciated recommendations noted-insulin gtt per endocrinology orders Insulin gtt continue to trend BMP replete potassium aggressively PRN will need outpatient follow up with ophthalmology and podiatry HbA1C 12.9 Severe Sepsis: tachycardic hypothermicon presentation now febrile leukocytosis on presentation now resolved with acute kidney injury lactic acidosis. ICU resident spoke to family last night and they endorsed he was sick in [place] and had symtpoms of URI and sinusitis and had yellow discharge from his nose Pressors stopped today remains febrile despite cooling blanket source of infection unknown Sputum Cx-prelim yeast like organisms GM positive species otherwise all micro NGTD BCx no growth so far UCx-no growth final continue Zosyn CSF cultures negative patient is having multi-organ failure Acute respiratory failure: from DKA and sepsis intubated ventilatory support ABG improved from admission Possible seizure activity when sedation is held possible withdrawals neurology consult appreciated sedation held to evaluate mental status and patient seems to be twitching his legs ? seizure activity vs withdrawals from alcohol continue versed gtt Thrombocytopenia: possible related to HIT Stop HSQ sent HIT Ab - pennding Send serotonin release assay-pending Hematology consult-Dr. Fernandez No DVT on US duplex haptoglobin WNL LDH elevated Possible DIC: send Fibrin split products send fibrinogen Coags WNL lactic acidosis: resolved from dehydration and volume depletion from third spacing of fluids trend lactic acid aggressive IVF for hydration Alcohol abuse: 1/2 NS @ 42ml/hr with MVN thiamine and folate Metabolic acidosis: improving but patient remains acidotic as he is no longer compensating by blowing off CO2 Vernt settings adjusted to increase RR from diabetic ketoacidosis restart bicarb gtt today Acute renal failure/Acute kidney injury: Nephrology consult appreciated Cr 2.6 same today renal work up in process aggressive IVF for hydration Trend Cr avoid nephrotoxic drugs Antibodies work up VIRGIL DS DNA Myeloperoxidase Anca Etc pending Transaminitis/questionable history of Liver disease: LFTs were improving but today LFTs significantly increased transaminitis likely from shock liver from hypoperfusion vs alcoholic liver disease Liver US showed fatty liver likely from alcoholism vs obesity Aggressive IVF hydration and volume repletion will need more history from the patient when he is stable alert and awake GI consult for hepatology evaluation appreciated-supportive care at this time CTAP-no acute pancreatic pathology or any other acute pathology Hematuria: from traumatic arnold insertion resolved Hypernatremia:patient intially has pseudohyponatremia from hyperglycemia as corrected sodium was normal now patient is hypernatremic continue 1/2 NS continue free water through NGT f/u nephrology for further recommendations hypernatrmia:improved Na 149 today free water through NGT 250ml/hr q6h per Dr. Espinoza D5W with bicarb @ 60ml/hr Asthma: intubated at this time will address this if it is active once stable FEN: D5W with Bicarg @ 60ml/hr free water through NGT replete potassium for hypokalemia while on insulin gtt keep K+>4.0. hypernatremia see above for plan Promote TF PPx: SCDs stop HSQ for possible HIT Pepcid No PT consult at this time CCT 55 minutes ICU care Guarded prognosis Visit type - Emergency Visit Emergency Visit: Yes ED Registration Date: 09/18/16 Care time: The patient presented to the Emergency Department on the above date and was hospitalized for further evaluation of their emergent condition. - New Patient This patient is new to me today: No - Critical Care Critical Care patient: Yes Total Critical Care Time (in minutes): 55 Critical Care Statement: The care of this patient involved high complexity decision making to prevent further life threatening deterioration of the patient 's condition and/or to evalute & treat vital organ system(s) failure or risk of failure.
[2016-09-22] MEDS ORDERED: PROPOFOL 100 ML ONE (17:12)
[2016-09-22] MEDS ORDERED: INSULIN REGULAR 100 UNITS in SODIUM CHLORIDE 99 ML IVPB SCH (18:38)
[2016-09-22] MEDS: ALBUTEROL SO4 0.083% IH SOL 2.5 MG/3 ML VIAL.NEB. NEB SCH ×3 (21:25→22:22)
[2016-09-22] MEDS ORDERED: ALBUTEROL SO4 0.083% IH SOL 2.5 MG/3 ML VIAL.NEB. NEB ONE (21:29)
[2016-09-22] MEDS: CHLORHEXIDINE GLUCONATE 4% CLEANSER FOR DECOLONIZATION TP SCH (21:46)
[2016-09-22] MEDS ORDERED: SODIUM BICARBONATE 8.4% - 100 ML ONE (21:54)
[2016-09-23 00:08] LABS: C-ANCA <1:20 titer (Neg:<1:20); MYELOPEROXIDASE ANTIBODY <9.0 U/mL (0.0-9.0); P-ANCA <1:20 titer (Neg:<1:20); PROTEINASE-3 ANTIBODY <3.5 U/mL (0.0-3.5)
[2016-09-23] MEDS: PROPOFOL 100 ML IVPB SCH ×3 (01:07→14:51)
[2016-09-23] MEDS: MIDAZOLAM 100 MG in SODIUM CHLORIDE 100 ML IVPB SCH ×2 (01:08→20:44)
[2016-09-23] MEDS: PIPERACILLIN/TAZOB 3.375 GM 50 ML IVPB SCH ×3 (01:10→17:01)
[2016-09-23] MEDS: FENTANYL INJECTION 500 MCG in DEXTROSE 5%-WATER - 90 ML IVPB SCH (01:14)
[2016-09-23] MEDS: ALBUTEROL SO4 2.5/IPRATROPIUM 0.5 INH SOL 3 ML VIAL.NEB. NEB SCH ×4 (05:43→23:21)
[2016-09-23 06:13] LABS: BASOPHIL 0.3 % (0-2.0); EOSINOPHIL 0.1 % (0-4.5); MCH 31.3 pg (25.7-33.7); MCHC 34.5 g/dl (32.0-35.9); MEAN CELL VOLUME 90.6 fl (80-96); MEAN PLT VOLUME 10.5 fl (7.5-11.1); NEUTROPHILS 82.5 % (42.8-82.8); PLATELET COUNT 106 K/MM3 (134-434); RDW 15.6 % (11.9-15.9); WHITE BLOOD COUNT 6.7 K/mm3 (4.0-10.0)
[2016-09-23 06:41] LABS: INR 0.99 (0.82-1.09); PROTHROMBIN TIME (PATIENT) 10.9 SEC (9.98-11.88)
[2016-09-23 06:53] LABS: ALBUMIN 1.6 g/dl (3.4-5.0); BILIRUBIN,TOTAL 0.5 mg/dL (0.2-1.0); CALCIUM 7.3 mg/dL (8.5-10.1); CREATININE 2.7 mg/dL (0.7-1.3); TOT PROT 4.7 g/dl (6.4-8.2)
--- NOTE | 2016-09-23 07:27 | PN ---
Progress Note, Physician Chief Complaint: ID Zosyn - Current Medication List Current Medications: Active Medications Albuterol/Ipratropium (Duoneb -) 1 amp NEB QIDR SILVER Last Admin: 09/23/16 05:43 Dose: 1 amp Chlorhexidine Gluconate (Hibiclens For Decolonization -) 1 applic TP HS SILVER Last Admin: 09/22/16 21:46 Dose: 1 applic IV Flush (Triple Lumen Flush) 4 ml IVPUSH PRN PRN PRN Reason: Protocol Propofol (Diprivan -) 100 mls @ 2.722 mls/hr IVPB TITR SILVER; 5 MCG/KG/MIN PRN Reason: Protocol Last Admin: 09/23/16 07:05 Dose: 13.608 mls/hr Famotidine/Sodium Chloride (Pepcid 20 Mg Premixed Ivpb -) 50 mls @ 100 mls/hr IVPB BID SILVER Last Admin: 09/22/16 21:55 Dose: 100 mls/hr Fentanyl 500 mcg/ Dextrose 100 mls @ 10 mls/hr IVPB TITR SILVER PRN Reason: 50 MCG/HR Last Admin: 09/23/16 01:14 Dose: 10 mls/hr Midazolam HCl 100 mg/ Sodium (Chloride) 100 mls @ 1 mls/hr IVPB TITR SILVER; 1 MG/ HR PRN Reason: Protocol Last Admin: 09/23/16 01:08 Dose: 10 mls/hr Piperacillin Sod/Tazobactam Sod (Zosyn 3.375gm Ivpb (Pre-Docked)) 50 mls @ 100 mls/hr IVPB Q8H-IV SILVER PRN Reason: Protocol Last Admin: 09/23/16 01:10 Dose: 100 mls/hr Sodium Bicarbonate 100 meq/ (Dextrose) 1,100 mls @ 60 mls/hr IV Q19H SILVER Last Admin: 09/22/16 22:01 Dose: 60 mls/hr Insulin Human Regular 100 (units/ Sodium Chloride) 100 mls @ 7 mls/hr IVPB TITR SILVER; 7 UNITS/HR PRN Reason: Protocol Last Titration: 09/23/16 06:32 Dose: 7 units/hr Mupirocin (Bactroban Ointment (For Decolonization) -) 1 applic NS BID [facility] Stop: 09/23/16 21:59 Last Admin: 09/22/16 21:46 Dose: 1 applic Thiamine HCl (Vitamin B1 Injection -) 200 mg IVPB DAILY SILVER Last Admin: 09/22/16 10:30 Dose: 200 mg - Objective Vital Signs: Vital Signs Temperature 98 F 09/23/16 06:00 Pulse Rate 103 H 09/23/16 06:00 Respiratory Rate 18 09/23/16 07:12 Blood Pressure 127/78 09/23/16 06:00 O2 Sat by Pulse Oximetry (%) 100 09/22/16 22:55 Neck: Yes: WNL, Supple Cardiovascular: Yes: S1, S2 Respiratory: Yes: WNL, Regular, CTA Bilaterally Gastrointestinal: Yes: Soft Edema: No Labs: CBC, BMP 09/23/16 05:15 09/23/16 05:15 INR, PTT INR 0.99 (0.82-1.09) 09/23/16 05:15 Fibrinogen 372.0 mg/dL (238-498) D 09/22/16 05:15 Problem List - Problems (1) Acute renal insufficiency Code(s): N28.9 - DISORDER OF KIDNEY AND URETER, UNSPECIFIED (2) Altered mental status Code(s): R41.82 - ALTERED MENTAL STATUS, UNSPECIFIED Qualifiers: Altered mental status type: stupor Qualified Code(s): R40.1 - Stupor (3) DKA (diabetic ketoacidosis) Code(s): E13.10 - OTH DIABETES MELLITUS WITH KETOACIDOSIS WITHOUT COMA Qualifiers: Diabetes mellitus type: type 1 Diabetes mellitus complication detail: with coma Qualified Code(s): E10.11 - Type 1 diabetes mellitus with ketoacidosis with coma (4) Lactic acidosis Code(s): E87.2 - ACIDOSIS (5) Sepsis Code(s): A41.9 - SEPSIS, UNSPECIFIED ORGANISM Assessment/Plan Microbiology 09/20/16 23:27 Sputum - Endotrachea Suction/Ventilator Sputum Culture - Preliminary Yeast Like Organism Staphylococcus Species 09/19/16 13:05 Blood - Central Line Blood Culture - Preliminary NO GROWTH OBTAINED AFTER 72 HOURS, INCUBATION TO CONTINUE FOR 2 DAYS. 09/19/16 11:22 Blood - Central Line Blood Culture - Preliminary NO GROWTH OBTAINED AFTER 72 HOURS, INCUBATION TO CONTINUE FOR 2 DAYS. Laboratory Tests 09/23/16 09/23/16 09/23/16 05:15 05:15 05:15 WBC 6.7 Hgb 9.0 L Hct 26.2 L Plt Count 106 L D INR 0.99 BUN 30 H Creatinine 2.7 H Assessment Multiorgan failure wit DKA suspected polysubstance abuse ? chemical injury SEAN related to ingestion of toxic chemical ? sepsis Plan Complete empiric therapy as fevers seem to be resolving Junie JONES
[2016-09-23 07:45] LABS: ALLENS TEST POSITIVE; ARTERIAL BLD GAS O2 SATURATION 99.2 % (90-98.9); ARTERIAL BLOOD GAS BASE EXCESS -7.3 meq/l (-2-2); ARTERIAL BLOOD GAS HCO3 19.5 meq/L (22-26); ARTERIAL BLOOD GAS pH 7.25 (7.35-7.45)
[2016-09-23] MEDS ORDERED: KCL 10 MEQ IVPB 100 ML IVPB SCH (07:45)
[2016-09-23 07:46] LABS: ART PUNCT SITE RIGHT RADIAL; LPM/O2% 40%; MECH. VENT. YES; PT. ON O2? YES; TYPE OF O2 VENT; VENT RATE 16; VT/PRESS 450
[2016-09-23] MEDS ORDERED: INSULIN DETEMIR 100 UNITS/ML MDV SQ STA (09:03)
--- NOTE | 2016-09-23 09:07 | PN ---
Progress Note (short form) - Note Progress Note: Events noted chart reviewed Still Intubated, sedated Off pressure support Febrile Blood sugar 200s On tube feeding now Vital Signs Period Temp Pulse Resp BP Sys/Gould Pulse Ox Last 24 Hr 97.7 F-100.5 F 97-118 14-20 114-164/69-100 99-116 PE: Intubated, sedated Neck: Supple, No JVd Lungs: CTA CVS: S1S2 Abd: benign Ext: No edema Neuro: intubated, sedated CMP Sodium 153 mmol/L (136-145) H 09/23/16 05:15 Potassium 3.3 mmol/L (3.5-5.1) L D 09/23/16 05:15 Chloride 124 mmol/L (98-107) H 09/23/16 05:15 Carbon Dioxide 20 mmol/L (21-32) L 09/23/16 05:15 Anion Gap 9 (8-16) 09/23/16 05:15 BUN 30 mg/dL (7-18) H 09/23/16 05:15 Creatinine 2.7 mg/dL (0.7-1.3) H 09/23/16 05:15 Creat Clearance w eGFR 29.18 (>60) 09/23/16 05:15 POC Glucometer 312.32512 UNITS (()) 09/23/16 08:41 Random Glucose 263 mg/dL (74-106) H D 09/23/16 05:15 Hemoglobin A1c % 12.9 % (4.8-6.0) H 09/19/16 06:05 Serum Osmolality 350 mosm/kg (278-305) H 09/18/16 23:30 Lactic Acid 0.535 mmol/L (0.4-2.0) 09/21/16 11:00 Calcium 7.3 mg/dL (8.5-10.1) L 09/23/16 05:15 Phosphorus 4.0 mg/dL (2.5-4.9) 09/23/16 05:15 Magnesium 2.0 mg/dL (1.8-2.4) 09/23/16 05:15 Total Bilirubin 0.5 mg/dL (0.2-1.0) D 09/23/16 05:15 Direct Bilirubin 0.2 mg/dL (0.0-0.2) D 09/19/16 03:20 AST 93 U/L (15-37) H D 09/23/16 05:15 ALT 131 U/L (12-78) H D 09/23/16 05:15 Alkaline Phosphatase 319 U/L (45-117) H 09/23/16 05:15 LD Total 440 U/L (87-241) H D 09/21/16 11:00 Creatine Kinase 72 IU/L (39-308) 09/18/16 23:30 Troponin I 0.04 ng/ml (0.00-0.05) D 09/18/16 23:30 Prot Electrophoresis (.) 09/19/16 19:30 Serum Total Protein 4.1 g/dL (6.0-8.5) L 09/19/16 19:30 Total Protein 4.7 g/dl (6.4-8.2) L 09/23/16 05:15 Albumin 1.6 g/dl (3.4-5.0) L 09/23/16 05:15 Globulin 1.9 g/dL (2.2-3.9) L 09/19/16 19:30 Albumin/Globulin Ratio 1.2 (0.7-1.7) 09/19/16 19:30 Iazus-0-Wabvkmkwj 0.2 gm/dL (0.0-0.4) 09/19/16 19:30 Euchk-6-Yxjuhjcbv 0.7 gm/dL (0.4-1.0) 09/19/16 19:30 Beta Globulins 0.5 gm/dL (0.7-1.3) L 09/19/16 19:30 Gamma Globulins 0.5 gm/dL (0.4-1.8) 09/19/16 19:30 Total Amylase 98 U/L (25-115) D 09/20/16 05:40 Lipase 262 U/L (73-393) 09/20/16 05:40 TSH 0.37 uIU/ml (0.358-3.74) 09/18/16 20:25 Current Medications Generic Name Dose Route Start Last Admin Trade Name Freq PRN Reason Stop Dose Admin Albuterol/Ipratropium 1 amp 09/22/16 12:15 09/23/16 05:43 Duoneb - NEB 1 amp QIDR [facility] Administration Artificial Tears 1 applic 09/23/16 10:00 Lacri-Lube Eye Ointment - OU BID [facility] Chlorhexidine Gluconate 1 applic 09/18/16 22:00 09/22/16 21:46 Hibiclens For Decolonization - TP 1 applic HS [facility] Administration IV Flush 4 ml 09/18/16 20:31 Triple Lumen Flush IVPUSH PRN PRN Protocol Propofol 100 mls @ 2.722 mls/hr 09/18/16 15:00 09/23/16 07:05 Diprivan - IVPB 13.608 mls/hr TITR [facility] Administration Protocol 5 MCG/KG/MIN Famotidine/Sodium Chloride 50 mls @ 100 mls/hr 09/19/16 10:00 09/22/16 21:55 Pepcid 20 Mg Premixed Ivpb - IVPB 100 mls/hr BID [facility] Administration Fentanyl 500 mcg/ Dextrose 100 mls @ 10 mls/hr 09/19/16 01:30 09/23/16 01:14 IVPB 10 mls/hr TITR [facility] Administration 50 MCG/HR Midazolam HCl 100 mg/ Sodium 100 mls @ 1 mls/hr 09/19/16 09:30 09/23/16 01:08 Chloride IVPB 10 mls/hr TITR [facility] Administration Protocol 1 MG/HR Piperacillin Sod/Tazobactam Sod 50 mls @ 100 mls/hr 09/20/16 09:00 09/23/16 01: 10 Zosyn 3.375gm Ivpb (Pre-Docked) IVPB 100 mls/hr Q8H-IV [facility] Administration Protocol Sodium Bicarbonate 100 meq/ 1,100 mls @ 60 mls/hr 09/22/16 16:58 09/22/16 22:01 Dextrose IV 60 mls/hr Q19H [facility] Administration Insulin Aspart 1 vial 09/23/16 09:00 Novolog Vial Sliding Scale - SQ Q4H [facility] Protocol Insulin Detemir 20 units 09/23/16 22:00 Levemir Vial SQ HS [facility] Insulin Detemir 20 units 09/23/16 09:03 Levemir Vial SQ 09/23/16 09:04 ONCE STA Mupirocin 1 applic 09/18/16 22:00 09/22/16 21:46 Bactroban Ointment (For Decolonization) - NS 09/23/16 21:59 1 applic BID [facility] Administration Potassium Chloride 20 meq 09/23/16 08:55 Potassium Chloride 20 Meq Premix Ivpb - IVPB 09/23/16 10:56 Q60M [facility] Potassium Chloride 40 meq 09/23/16 10:00 Potassium Chloride Oral Liquid PO BID [facility] Thiamine HCl 200 mg 09/19/16 10:00 09/22/16 10:30 Vitamin B1 Injection - IVPB 200 mg DAILY [facility] Administration AP: DKA: resolved, A gap normalized Blood sugar 200s Respiratory failure ? Pancreatitis: GI consult noted, Pancreas normal on CT abd Sepsis Lactic Acidosis SEAN Hypokalemia Improving acidosis D/C Insulin drip Levemir 20 units stat and daily BGM Q 4Hr Novolog coverage Q 4hrs Titrate Insulin to a blood sugar goal of 120 to 180 Start D10 at 40 ml/hr whenever tube feeding is discontinued Electrolyte replacement as necessary IV abx
[2016-09-23] MEDS: POTASSIUM CHLORIDE 20 MEQ PREMIX IVPB 100 ML IVPB SCH ×3 (09:28→10:46)
[2016-09-23] MEDS: INSULIN SLIDING SCALE (NOVOLOG) 1 VIAL SQ SCH ×5 (10:00→21:13)
[2016-09-23] MEDS: MUPIROCIN 2% TOPICAL OINTMENT FOR DECOLONIZATION NS SCH (10:04)
[2016-09-23] MEDS: FAMOTIDINE 20 MG/50 ML IVPB 50 ML IVPB SCH ×2 (10:05→21:13)
[2016-09-23] MEDS: THIAMINE HCL 200 MG/2 ML VIAL IVPB SCH (10:05)
[2016-09-23] MEDS ORDERED: FUROSEMIDE 40 MG/4 ML INJECTABLE VIAL ONE (10:07)
[2016-09-23] MEDS: POTASSIUM CHLORIDE ORAL LIQUID 20 MEQ/15 ML PO SCH ×2 (10:24→21:13)
[2016-09-23] MEDS: OCULAR LUBRICANT OPHTHALMIC OINTMENT 7 GM TUBE OU SCH ×2 (10:24→21:38)
[2016-09-23] MEDS ORDERED: INSULIN (NOVOLOG) ASPART 100 UNITS/ML 10ML VIAL SQ SCH (11:00)
[2016-09-23] MEDS ORDERED: FUROSEMIDE 40 MG/4 ML INJECTABLE VIAL IVPUSH ONE (11:11)
--- NOTE | 2016-09-23 11:20 | PN ---
GI Progress Note Subjective: GI Note: Recent events noted. Requiring heavy sedation. Family has apparently mentioned crytal meth usage to staff. No longer suspect pancreatitis given CT findings. LFTs are improving. Negative for HCV and HBV and autoimmune hepatitis. Tolerating feedings and having BMs - Objective Vital Signs: Vital Signs Temperature 98.3 F 09/23/16 10:00 Pulse Rate 77 09/23/16 10:30 Respiratory Rate 16 09/23/16 10:00 Blood Pressure 136/79 09/23/16 10:00 O2 Sat by Pulse Oximetry (%) 97 09/23/16 10:30 Constitutional: Other (Sedated on ventilator) ...Auscultate: Yes: Hypoactive Bowel Sounds ...Palpate: Yes: Soft, Other (no masses or tenderness) Labs: CBC, BMP 09/23/16 05:15 09/23/16 10:00 INR, PTT INR 0.99 (0.82-1.09) 09/23/16 05:15 Fibrinogen 372.0 mg/dL (238-498) D 09/22/16 05:15 Assessment/Plan The hepatitis appears to be multifactorial. 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 Even so given his age and neurological condition a ceruloplasm level should be obtained to exclude Jorge A' s Disease. No evidence of pancreatitis. Can advance feedings as tolerated.
--- NOTE | 2016-09-23 11:33 | PN ---
Progress Note (short form) - Note Progress Note: Neurology The patient is a 25 year old male, with a significant past medical history of asthma, who presented to the emergency department several days ago for altered mental status. Reportedly, the patient recently returned from [place] and stated he was not feeling well, but could not localize his symptoms. The patient has a history of cocaine use. Spoke to resident and the patient has had elevated liver enzymes, also with DKA, has been having fevers, underwent spinal tap with RBC of 70,000 and 30,000 with elevated WBC and elevated glucose and protein. Completed head CT and without acute changes. MRI would difficult as he is intubated on mechanical ventilation though he is overbreathing the vent. Is on sedation and plan for sedation through withdrawal period. Without sedation reportedly with desaturation and tachypnea. Active Medications Albuterol/Ipratropium (Duoneb -) 1 amp NEB QIDR [facility] Last Admin: 09/23/16 05:43 Dose: 1 amp Artificial Tears (Lacri-Lube Eye Ointment -) 1 applic OU BID [facility] Last Admin: 09/23/16 10:24 Dose: 1 applic Chlorhexidine Gluconate (Hibiclens For Decolonization -) 1 applic TP HS [facility] Last Admin: 09/22/16 21:46 Dose: 1 applic Furosemide (Lasix Injection -) 40 mg IVPUSH ONCE ONE Stop: 09/23/16 11:12 Last Admin: 09/23/16 11:30 Dose: 40 mg Heparin Sodium (Porcine) (Heparin -) 5,000 unit SQ TID [facility] IV Flush (Triple Lumen Flush) 4 ml IVPUSH PRN PRN PRN Reason: Protocol Propofol (Diprivan -) 100 mls @ 2.722 mls/hr IVPB TITR [facility]; 5 MCG/KG/MIN PRN Reason: Protocol Last Admin: 09/23/16 07:05 Dose: 13.608 mls/hr Famotidine/Sodium Chloride (Pepcid 20 Mg Premixed Ivpb -) 50 mls @ 100 mls/hr IVPB BID [facility] Last Admin: 09/23/16 10:05 Dose: 100 mls/hr Fentanyl 500 mcg/ Dextrose 100 mls @ 10 mls/hr IVPB TITR [facility] PRN Reason: 50 MCG/HR Last Admin: 09/23/16 01:14 Dose: 10 mls/hr Midazolam HCl 100 mg/ Sodium (Chloride) 100 mls @ 1 mls/hr IVPB TITR [facility]; 1 MG/ HR PRN Reason: Protocol Last Admin: 09/23/16 01:08 Dose: 10 mls/hr Piperacillin Sod/Tazobactam Sod (Zosyn 3.375gm Ivpb (Pre-Docked)) 50 mls @ 100 mls/hr IVPB Q8H-IV [facility] PRN Reason: Protocol Last Admin: 09/23/16 10:04 Dose: 100 mls/hr Sodium Bicarbonate 100 meq/ (Dextrose) 1,100 mls @ 60 mls/hr IV Q19H [facility] Last Admin: 09/22/16 22:01 Dose: 60 mls/hr Insulin Aspart (Novolog Vial Sliding Scale -) 1 vial SQ Q4HWA [facility] PRN Reason: Protocol Last Admin: 09/23/16 11:14 Dose: 12 units Insulin Detemir (Levemir Vial) 20 units SQ HS [facility] Mupirocin (Bactroban Ointment (For Decolonization) -) 1 applic NS BID [facility] Stop: 09/23/16 21:59 Last Admin: 09/23/16 10:04 Dose: 1 applic Potassium Chloride (Potassium Chloride Oral Liquid) 40 meq PO BID [facility] Last Admin: 09/23/16 10:24 Dose: 40 meq Thiamine HCl (Vitamin B1 Injection -) 200 mg IVPB DAILY [facility] Last Admin: 09/23/16 10:05 Dose: 200 mg *Physical Exam Vital Signs Temperature 98.3 F 09/23/16 10:00 Pulse Rate 77 09/23/16 10:30 Respiratory Rate 16 09/23/16 10:00 Blood Pressure 136/79 09/23/16 10:00 O2 Sat by Pulse Oximetry (%) 97 09/23/16 10:30 GENERAL: Difficult to arouse even with painful stimuli HEAD: No signs of trauma EYES: Pupils small but reactive, EOMI, sclera anicteric, conjunctiva clear ENT: Auricles normal inspection, hearing grossly normal, nares patent, oropharynx clear without exudates. Moist mucosa NECK: Normal ROM, supple, no lymphadenopathy, JVD, or masses LUNGS: Respiration is kuz-mal. No wheezes, and no crackles HEART: Regular rate and rhythm, normal S1 and S2, no murmurs, rubs or gallops ABDOMEN: Tender and slightly firm. Normoactive bowel sounds. No guarding, no rebound. No masses EXTREMITIES: Normal range of motion, no edema. No clubbing or cyanosis. No cords, erythema, or tenderness NEUROLOGICAL: Cranial nerves II through XII grossly intact. Normal speech, normal gait SKIN: Mottled and cool to the touch. Dry, normal turgor, no rashes or lesions noted. CBCD WBC 6.0 K/mm3 (4.0-10.0) D 09/21/16 04:20 RBC 2.93 M/mm3 (4.00-5.60) L 09/21/16 04:20 Hgb 9.3 GM/dL (11.7-16.9) L 09/21/16 04:20 Hct 26.2 % (35.4-49) L 09/21/16 04:20 MCV 89.5 fl (80-96) 09/21/16 04:20 MCHC 35.6 g/dl (32.0-35.9) 09/21/16 04:20 RDW 14.6 % (11.9-15.9) 09/21/16 04:20 Plt Count 90 K/MM3 (134-434) L D 09/21/16 04:20 MPV 11.2 fl (7.5-11.1) H 09/21/16 04:20 CMP Sodium 153 mmol/L (136-145) H 09/21/16 09:55 Potassium 3.7 mmol/L (3.5-5.1) 09/21/16 09:55 Chloride 127 mmol/L (98-107) H 09/21/16 09:55 Carbon Dioxide 18 mmol/L (21-32) L D 09/21/16 09:55 Anion Gap 8 (8-16) 09/21/16 09:55 BUN 31 mg/dL (7-18) H 09/21/16 09:55 Creatinine 2.4 mg/dL (0.7-1.3) H 09/21/16 09:55 Creat Clearance w eGFR 30.48 (>60) 09/21/16 04:20 Calcium 7.2 mg/dL (8.5-10.1) L 09/21/16 09:55 Total Bilirubin 0.6 mg/dL (0.2-1.0) D 09/21/16 04:20 AST 389 U/L (15-37) H D 09/21/16 04:20 ALT 165 U/L (12-78) H D 09/21/16 04:20 Alkaline Phosphatase 175 U/L (45-117) H D 09/21/16 04:20 Total Protein 4.1 g/dl (6.4-8.2) L 09/21/16 04:20 Albumin 1.6 g/dl (3.4-5.0) L 09/21/16 04:20 Medical Decision Making 25 year old male, with a significant past medical history of asthma, who presented to the emergency department several days ago for altered mental status. Reportedly, the patient recently returned from [place] and stated he was not feeling well, but could not localize his symptoms. The patient has a history of cocaine use. Spoke to resident and the patient has had elevated liver enzymes, also with DKA, has been having fevers, underwent spinal tap with RBC of 70,000 and 30,000 with elevated WBC and elevated glucose and protein. Has not had any imaging of head and MRI would difficult as he is intubated on mechanical ventilation though he is overbreathing the vent. CT head stable. Continue aggresive medical mgmt. Mention of jerking activity when sedation weans which may be 2/2 to withdrawal. Continue monitoring labs and CSF cultures. Seems to be toxic metabolic process and hopefully reversible. Will follow closely.
--- NOTE | 2016-09-23 11:34 | PN ---
Teaching Attending Note Name of Resident: Pilo Gonzales ATTENDING PHYSICIAN STATEMENT I saw and evaluated the patient. I reviewed the resident's note and discussed the case with the resident. I agree with the resident's findings and plan as documented. SUBJECTIVE: Pt seen and examined in the ICU. Remains intubated, sedated. Low grade temps yesterday. Good urine output after arnold flushed. Off pressors. OBJECTIVE: Last Vital Signs Temp Pulse Resp BP Pulse Ox 98.3 F 77 16 136/79 97 09/23/16 10:00 09/23/16 10:30 09/23/16 10:00 09/23/16 10:00 09/23/16 10:30 Intake & Output 09/20/16 09/21/16 09/22/16 09/23/16 23:59 23:59 23:59 23:59 Intake Total 3613.2 2831.9 4030.4 1326 Output Total 3000 3400 3100 4600 Balance 613.2 -568.1 930.4 -3274 Weight 218 lb 6 oz 223 lb 9.6 oz 224 lb 6.889 oz 219 lb 2.232 oz Gen: intubated, sedated Heart: RRR Lung: decreased breath sounds at the bases Abd: soft, nontender Ext: + edema CBC, BMP 09/23/16 05:15 09/23/16 10:00 Active Medications Albuterol/Ipratropium (Duoneb -) 1 amp NEB QIDR [facility] Last Admin: 09/23/16 05:43 Dose: 1 amp Artificial Tears (Lacri-Lube Eye Ointment -) 1 applic OU BID [facility] Last Admin: 09/23/16 10:24 Dose: 1 applic Chlorhexidine Gluconate (Hibiclens For Decolonization -) 1 applic TP HS [facility] Last Admin: 09/22/16 21:46 Dose: 1 applic Furosemide (Lasix Injection -) 40 mg IVPUSH ONCE ONE Stop: 09/23/16 11:12 Last Admin: 09/23/16 11:30 Dose: 40 mg Heparin Sodium (Porcine) (Heparin -) 5,000 unit SQ TID [facility] IV Flush (Triple Lumen Flush) 4 ml IVPUSH PRN PRN PRN Reason: Protocol Propofol (Diprivan -) 100 mls @ 2.722 mls/hr IVPB TITR [facility]; 5 MCG/KG/MIN PRN Reason: Protocol Last Admin: 09/23/16 07:05 Dose: 13.608 mls/hr Famotidine/Sodium Chloride (Pepcid 20 Mg Premixed Ivpb -) 50 mls @ 100 mls/hr IVPB BID [facility] Last Admin: 09/23/16 10:05 Dose: 100 mls/hr Fentanyl 500 mcg/ Dextrose 100 mls @ 10 mls/hr IVPB TITR [facility] PRN Reason: 50 MCG/HR Last Admin: 09/23/16 01:14 Dose: 10 mls/hr Midazolam HCl 100 mg/ Sodium (Chloride) 100 mls @ 1 mls/hr IVPB TITR [facility]; 1 MG/ HR PRN Reason: Protocol Last Admin: 09/23/16 01:08 Dose: 10 mls/hr Piperacillin Sod/Tazobactam Sod (Zosyn 3.375gm Ivpb (Pre-Docked)) 50 mls @ 100 mls/hr IVPB Q8H-IV [facility] PRN Reason: Protocol Last Admin: 09/23/16 10:04 Dose: 100 mls/hr Sodium Bicarbonate 100 meq/ (Dextrose) 1,100 mls @ 60 mls/hr IV Q19H [facility] Last Admin: 09/22/16 22:01 Dose: 60 mls/hr Insulin Aspart (Novolog Vial Sliding Scale -) 1 vial SQ Q4HWA [facility] PRN Reason: Protocol Last Admin: 09/23/16 11:14 Dose: 12 units Insulin Detemir (Levemir Vial) 20 units SQ HS [facility] Mupirocin (Bactroban Ointment (For Decolonization) -) 1 applic NS BID [facility] Stop: 09/23/16 21:59 Last Admin: 09/23/16 10:04 Dose: 1 applic Potassium Chloride (Potassium Chloride Oral Liquid) 40 meq PO BID [facility] Last Admin: 09/23/16 10:24 Dose: 40 meq Thiamine HCl (Vitamin B1 Injection -) 200 mg IVPB DAILY [facility] Last Admin: 09/23/16 10:05 Dose: 200 mg ASSESSMENT AND PLAN: Acute Respiratory Failure Polysubstance Abuse Diabetic Ketoacidosis resolving Metabolic Acidosis r/o Septic Shock Acute Kidney Injury Lactic Acidosis resolved Elevated LFTs ?Alcohol Withdrawal Volume Overload - continue antibiotics - continue bicarb gtt - monitor urine output, creatinine - increase free water via GT - lasix today - monitoring off pressors, maintain MAP >65 - replete lytes - sedate for vent synchrony and ?DTs - not a candidate for weaning at this time due to sedation requirements, will lighten in AM to assess mental status - spontaneous breathing trials as tolerated when mental status improved - enteral feeds - DVT/GI prophylaxis - continue ICU monitoring critical care time spent in reviewing chart, evaluating patient and formulating plan 36 min
[2016-09-23] MEDS ORDERED: BENZOIN/ALOE VERA/STORAX/TOLU 58 ML BOTTLE ONE (11:53)
--- NOTE | 2016-09-23 12:50 | PN ---
Progress Note, Physician History of Present Illness: Pt seen and examined at bedside. He remains in the ICU. Pt remains intubated. - Current Medication List Current Medications: Active Medications Albuterol/Ipratropium (Duoneb -) 1 amp NEB QIDR [facility] Last Admin: 09/23/16 05:43 Dose: 1 amp Artificial Tears (Lacri-Lube Eye Ointment -) 1 applic OU BID [facility] Last Admin: 09/23/16 10:24 Dose: 1 applic Chlorhexidine Gluconate (Hibiclens For Decolonization -) 1 applic TP HS [facility] Last Admin: 09/22/16 21:46 Dose: 1 applic Heparin Sodium (Porcine) (Heparin -) 5,000 unit SQ TID [facility] IV Flush (Triple Lumen Flush) 4 ml IVPUSH PRN PRN PRN Reason: Protocol Propofol (Diprivan -) 100 mls @ 2.722 mls/hr IVPB TITR [facility]; 5 MCG/KG/MIN PRN Reason: Protocol Last Admin: 09/23/16 07:05 Dose: 13.608 mls/hr Famotidine/Sodium Chloride (Pepcid 20 Mg Premixed Ivpb -) 50 mls @ 100 mls/hr IVPB BID [facility] Last Admin: 09/23/16 10:05 Dose: 100 mls/hr Fentanyl 500 mcg/ Dextrose 100 mls @ 10 mls/hr IVPB TITR [facility] PRN Reason: 50 MCG/HR Last Admin: 09/23/16 01:14 Dose: 10 mls/hr Midazolam HCl 100 mg/ Sodium (Chloride) 100 mls @ 1 mls/hr IVPB TITR [facility]; 1 MG/ HR PRN Reason: Protocol Last Admin: 09/23/16 01:08 Dose: 10 mls/hr Piperacillin Sod/Tazobactam Sod (Zosyn 3.375gm Ivpb (Pre-Docked)) 50 mls @ 100 mls/hr IVPB Q8H-IV [facility] PRN Reason: Protocol Last Admin: 09/23/16 10:04 Dose: 100 mls/hr Sodium Bicarbonate 100 meq/ (Dextrose) 1,100 mls @ 60 mls/hr IV Q19H [facility] Last Admin: 09/22/16 22:01 Dose: 60 mls/hr Insulin Aspart (Novolog Vial Sliding Scale -) 1 vial SQ Q4HWA [facility] PRN Reason: Protocol Last Admin: 09/23/16 11:14 Dose: 12 units Insulin Detemir (Levemir Vial) 20 units SQ HS [facility] Mupirocin (Bactroban Ointment (For Decolonization) -) 1 applic NS BID [facility] Stop: 09/23/16 21:59 Last Admin: 09/23/16 10:04 Dose: 1 applic Potassium Chloride (Potassium Chloride Oral Liquid) 40 meq PO BID [facility] Last Admin: 09/23/16 10:24 Dose: 40 meq Thiamine HCl (Vitamin B1 Injection -) 200 mg IVPB DAILY [facility] Last Admin: 09/23/16 10:05 Dose: 200 mg - Objective Vital Signs: Vital Signs Temperature 99.3 F 09/23/16 12:00 Pulse Rate 111 H 09/23/16 12:00 Respiratory Rate 20 09/23/16 12:00 Blood Pressure 141/79 09/23/16 12:00 O2 Sat by Pulse Oximetry (%) 97 09/23/16 10:30 Constitutional: Yes: Calm Eyes: Yes: Conjunctiva Clear HENT: Yes: Atraumatic Neck: Yes: Supple Cardiovascular: Yes: S1, S2 Respiratory: Yes: Mechanically Ventilated Gastrointestinal: Yes: Soft Genitourinary: Yes: Kelly Present Musculoskeletal: Yes: Muscle Weakness Edema: Yes Neurological: Yes: Other (sedated) Labs: CBC, BMP 09/23/16 05:15 09/23/16 10:00 INR, PTT INR 0.99 (0.82-1.09) 09/23/16 05:15 Fibrinogen 372.0 mg/dL (238-498) D 09/22/16 05:15 Problem List - Problems (1) Acute renal insufficiency Code(s): N28.9 - DISORDER OF KIDNEY AND URETER, UNSPECIFIED (2) Altered mental status Code(s): R41.82 - ALTERED MENTAL STATUS, UNSPECIFIED Qualifiers: Altered mental status type: stupor Qualified Code(s): R40.1 - Stupor (3) Lactic acidosis Code(s): E87.2 - ACIDOSIS (4) Leukocytosis Code(s): D72.829 - ELEVATED WHITE BLOOD CELL COUNT, UNSPECIFIED (5) Respiratory failure Code(s): J96.90 - RESPIRATORY FAILURE, UNSP, UNSP W HYPOXIA OR HYPERCAPNIA Assessment/Plan Current Medications Generic Name Dose Route Start Last Admin Trade Name Freq PRN Reason Stop Dose Admin Albuterol/Ipratropium 1 amp 09/22/16 12:15 09/23/16 05:43 Duoneb - NEB 1 amp QIDR [facility] Administration Artificial Tears 1 applic 09/23/16 10:00 09/23/16 10:24 Lacri-Lube Eye Ointment - OU 1 applic BID [facility] Administration Chlorhexidine Gluconate 1 applic 09/18/16 22:00 09/22/16 21:46 Hibiclens For Decolonization - TP 1 applic HS [facility] Administration Heparin Sodium (Porcine) 5,000 unit 09/23/16 14:00 Heparin - SQ TID [facility] IV Flush 4 ml 09/18/16 20:31 Triple Lumen Flush IVPUSH PRN PRN Protocol Propofol 100 mls @ 2.722 mls/hr 09/18/16 15:00 09/23/16 07:05 Diprivan - IVPB 13.608 mls/hr TITR [facility] Administration Protocol 5 MCG/KG/MIN Famotidine/Sodium Chloride 50 mls @ 100 mls/hr 09/19/16 10:00 09/23/16 10:05 Pepcid 20 Mg Premixed Ivpb - IVPB 100 mls/hr BID [facility] Administration Fentanyl 500 mcg/ Dextrose 100 mls @ 10 mls/hr 09/19/16 01:30 09/23/16 01:14 IVPB 10 mls/hr TITR [facility] Administration 50 MCG/HR Midazolam HCl 100 mg/ Sodium 100 mls @ 1 mls/hr 09/19/16 09:30 09/23/16 01:08 Chloride IVPB 10 mls/hr TITR [facility] Administration Protocol 1 MG/HR Piperacillin Sod/Tazobactam Sod 50 mls @ 100 mls/hr 09/20/16 09:00 09/23/16 10: 04 Zosyn 3.375gm Ivpb (Pre-Docked) IVPB 100 mls/hr Q8H-IV [facility] Administration Protocol Sodium Bicarbonate 100 meq/ 1,100 mls @ 60 mls/hr 09/22/16 16:58 09/22/16 22:01 Dextrose IV 60 mls/hr Q19H [facility] Administration Insulin Aspart 1 vial 09/23/16 09:00 04/19/17 11:14 Novolog Vial Sliding Scale - SQ 12 units Q4HWA [facility] Administration Protocol Insulin Detemir 20 units 09/23/16 22:00 Levemir Vial SQ HS [facility] Mupirocin 1 applic 09/18/16 22:00 09/23/16 10:04 Bactroban Ointment (For Decolonization) - NS 09/23/16 21:59 1 applic BID [facility] Administration Potassium Chloride 40 meq 09/23/16 10:00 09/23/16 10:24 Potassium Chloride Oral Liquid PO 40 meq BID [facility] Administration Thiamine HCl 200 mg 09/19/16 10:00 09/23/16 10:05 Vitamin B1 Injection - IVPB 200 mg DAILY [facility] Administration Laboratory Tests 09/19/16 09/21/16 09/22/16 19:30 11:00 14:20 Haptoglobin 188 Total Bilirubin VIRGIL Screen Negative c-ANCA <1:20 Proteinase 3 (PR3) <3.5 p-ANCA <1:20 Atypical p-ANCA <1:20 Myeloperoxidase Ab <9.0 Double Strand DNA Ab <1 Glomerular Base Memb Ab Pending Complement C3 Pending Complement C4 Pending 09/23/16 05:15 Haptoglobin Total Bilirubin 0.5 D VIRGIL Screen c-ANCA Proteinase 3 (PR3) p-ANCA Atypical p-ANCA Myeloperoxidase Ab Double Strand DNA Ab Glomerular Base Memb Ab Complement C3 Complement C4 Impression 1. SEAN 2. metabolic acidosis 3. gross hematuria 4. DKA 5. sepsis 6. lactic acidosis 7. acute respiratory failure requiring intubation 8. etoh abuse - active 9. 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 [place] also [place] airport and may have ingested drug. The history we are getting from the family and friends is vague and has been in spurts. - cont support - monitor bp - vent support - heme onc eval - workup in progress Dr Espinoza
[2016-09-23] MEDS ORDERED: PROPOFOL 100 ML ONE (14:45)
[2016-09-23] MEDS: HEPARIN NA (PORCINE) 5,000 UNITS/ML 1ML VIAL SQ SCH ×2 (14:50→21:13)
--- NOTE | 2016-09-23 15:24 | PN ---
Teaching Attending Note Name of Resident: Danny Shine ATTENDING PHYSICIAN STATEMENT I saw and evaluated the patient. I reviewed the resident's note and discussed the case with the resident. I agree with the resident's findings and plan as documented. SUBJECTIVE: unable to obtain hx no event over night OBJECTIVE: sedated, intubated HEENT: round equal pupils , reactive to light , ET tube in . no JVDR IJ in Cv; RRR, NL S1, S2, no MRG Lungs : bilateral rales ( minimal ) Abd ; soft, decreased breath sounds . Ext : no edema ove rLE . 2 areas fo black coloration on R fore arm with ( 4x3 cm , and 1x1 cm . ) with mm surrounding erythema ASSESSMENT AND PLAN: 25 y/o man withh/o Asthma who presented after being found down, he was found to be in DKA, developed Acute resp failure , an also was found tohave metabolic acidosis, LFTs abnormalities and eleated lipase. 1- Acute resp failure: mltifactorial, possible drugs, metabolic acidosis and PNA . Cxray with patchy infiltrates, and sputum is growing presumptive MRSA . - will start MRSa coverage . d/W dr. Moore - cont zosyn - cont vent support and sedation . 2- DKA : resolved , AG closed. - cont long acting insulin and SSI 4. 3- Metabolic acidosis: despite treating DKA . could be due to renal failure and can't R/O possible ingestion - cont bicarb gtt - check methanol and ethylin glycol 4- Severe Sepsis : source could be PNA . as sputum is growing MRSA and initial CT scn with basilar infiltrate and air bronchogram. - cont zosyn add vanco - lood cx neg to date 5- Alcohol abuse, possible withdrawal . cont versed when extubated he needs to be on standing benzo taper 6- SEAN vs CKD : stable cr since admission . probably CKD renal US was limited but no hydro in R side although he has anemia , no evidence of hemolysis to suspect HUS any wy fidel check for shitocytes. d/w renal and heme by resident cont IVF 7- Transaminitis ; likely due to sepsis , hypotension ,alcohol and medications ( sedatives) . monitor ceruloplasmin pending 8- Possible acute pancreatitis : although CT scan showed nl pancreas, he has elevated Lipase and not able to evaluate for typical signs and sx. any way received IVf and now being fed. no change in management 9- Normocytic anemia :likely was hemeconcentrted o n admission, now back to base line after hydration. no evidence of active bleeding . and haptoglobin is NL indicating no hemolysis . - check iron studies - b12 , folate 10 - DIC : likely due to severe sepsis . Not sure if ingestion has contributed. - fibrinogen > 200 plt . 100K resume heparin sq 11- hypernatremia : agree with increasing free water through TF cont d5w dispo : ICU level of care Critical Care Total Critical Care Time (in minutes): 50 Critical Care Statement: The care of this patient involved high complexity decision making to prevent further life threatening deterioration of the patient 's condition and/or to evalute & treat vital organ system(s) failure or risk of failure.
[2016-09-23 16:35] LABS: INR 0.99 (0.82-1.09)
[2016-09-23 16:38] LABS: ACTIVATED PTT 34.8 SECONDS (26.9-34.4)
[2016-09-23 16:46] LABS: FIBRINOGEN > 700.0 mg/dL (238-498)
[2016-09-23] MEDS ORDERED: VANCOMYCIN 1,500 MG in SODIUM CHLORIDE 500 ML IVPB ONE (17:00)
--- NOTE | 2016-09-23 18:20 | PN ---
Physical Exam: SUBJECTIVE: Patient seen and examined OBJECTIVE: Vital Signs Period Temp Pulse Resp BP Sys/Gould Pulse Ox Last 24 Hr 97.7 F-99.8 F 77-115 14-20 124-164/66-100 97-100 GENERAL: Intubated sedated. HEAD: Normal with no signs of trauma. EYES: Pupils equal, round and reactive to light, Sclera anicteric, Conjunctiva clear EARS, NOSE, THROAT:Moist mucous membranes. NECK: No JVD. Central line in place no surrounding erythema LUNGS: . Bronchial breath sounds rales bilaterally. Intubated. HEART: RRR S1 S2 no murmurs rubs or gallops ABDOMEN: Soft, nontender, not distended UPPER EXTREMITIES: warm, well-perfused. 1+ pitting edema. on the right forearm there are 2 area of what appears to be necrosis with surrounding erythema LOWER EXTREMITIES: warm, well-perfused. Trace non pitting edema : arnold in place Laboratory Results - last 24 hr 09/19/16 09/21/16 09/22/16 19:30 11:00 17:19 WBC RBC Hgb Hct MCV MCHC RDW Plt Count MPV Neutrophils % Lymphocytes % Monocytes % Eosinophils % Basophils % Basophilic Stippling Macrocytosis Morphology Comment INR PTT (Actin FS) Fibrinogen Puncture Site ABG pH ABG pCO2 at Pt Temp ABG pO2 at Pt Temp ABG HCO3 ABG O2 Sat (Measured) ABG O2 Content ABG Base Excess Dennis Test O2 Delivery Device Oxygen Flow Rate Vent Mode Vent Rate Mechanical Rate PEEP Pressure Support Vent Sodium Potassium Chloride Carbon Dioxide Anion Gap BUN Creatinine Creat Clearance w eGFR POC Glucometer [phone] Random Glucose Calcium Phosphorus Magnesium Total Bilirubin AST ALT Alkaline Phosphatase LD Total Total Protein Albumin VIRGIL Screen Negative c-ANCA <1:20 Proteinase 3 (PR3) <3.5 p-ANCA <1:20 Atypical p-ANCA <1:20 Myeloperoxidase Ab <9.0 Glomerular Base Memb Ab 2 Hep-Induced Plt Ab Rapid 0.179 Direct Antiglob Test 09/22/16 09/22/16 09/22/16 18:14 19:55 21:03 WBC RBC Hgb Hct MCV MCHC RDW Plt Count MPV Neutrophils % Lymphocytes % Monocytes % Eosinophils % Basophils % Basophilic Stippling Macrocytosis Morphology Comment INR PTT (Actin FS) Fibrinogen Puncture Site ABG pH ABG pCO2 at Pt Temp ABG pO2 at Pt Temp ABG HCO3 ABG O2 Sat (Measured) ABG O2 Content ABG Base Excess Dennis Test O2 Delivery Device Oxygen Flow Rate Vent Mode Vent Rate Mechanical Rate PEEP Pressure Support Vent Sodium Potassium Chloride Carbon Dioxide Anion Gap BUN Creatinine Creat Clearance w eGFR POC Glucometer [phone] Random Glucose Calcium Phosphorus Magnesium Total Bilirubin AST ALT Alkaline Phosphatase LD Total Total Protein Albumin VIRGIL Screen c-ANCA Proteinase 3 (PR3) p-ANCA Atypical p-ANCA Myeloperoxidase Ab Glomerular Base Memb Ab Hep-Induced Plt Ab Rapid Direct Antiglob Test 09/22/16 09/22/16 09/23/16 21:58 23:48 00:57 WBC RBC Hgb Hct MCV MCHC RDW Plt Count MPV Neutrophils % Lymphocytes % Monocytes % Eosinophils % Basophils % Basophilic Stippling Macrocytosis Morphology Comment INR PTT (Actin FS) Fibrinogen Puncture Site ABG pH ABG pCO2 at Pt Temp ABG pO2 at Pt Temp ABG HCO3 ABG O2 Sat (Measured) ABG O2 Content ABG Base Excess Dennis Test O2 Delivery Device Oxygen Flow Rate Vent Mode Vent Rate Mechanical Rate PEEP Pressure Support Vent Sodium Potassium Chloride Carbon Dioxide Anion Gap BUN Creatinine Creat Clearance w eGFR POC Glucometer [phone] [phone] Random Glucose Calcium Phosphorus Magnesium Total Bilirubin AST ALT Alkaline Phosphatase LD Total Total Protein Albumin VIRGIL Screen c-ANCA Proteinase 3 (PR3) p-ANCA Atypical p-ANCA Myeloperoxidase Ab Glomerular Base Memb Ab Hep-Induced Plt Ab Rapid Direct Antiglob Test 09/23/16 09/23/16 09/23/16 02:17 03:13 04:30 WBC RBC Hgb Hct MCV MCHC RDW Plt Count MPV Neutrophils % Lymphocytes % Monocytes % Eosinophils % Basophils % Basophilic Stippling Macrocytosis Morphology Comment INR PTT (Actin FS) Fibrinogen Puncture Site ABG pH ABG pCO2 at Pt Temp ABG pO2 at Pt Temp ABG HCO3 ABG O2 Sat (Measured) ABG O2 Content ABG Base Excess Dennis Test O2 Delivery Device Oxygen Flow Rate Vent Mode Vent Rate Mechanical Rate PEEP Pressure Support Vent Sodium Potassium Chloride Carbon Dioxide Anion Gap BUN Creatinine Creat Clearance w eGFR POC Glucometer [phone] [phone] Random Glucose Calcium Phosphorus Magnesium Total Bilirubin AST ALT Alkaline Phosphatase LD Total Total Protein Albumin VIRGIL Screen c-ANCA Proteinase 3 (PR3) p-ANCA Atypical p-ANCA Myeloperoxidase Ab Glomerular Base Memb Ab Hep-Induced Plt Ab Rapid Direct Antiglob Test 09/23/16 09/23/16 09/23/16 05:15 05:15 05:15 WBC 6.7 RBC 2.89 L Hgb 9.0 L Hct 26.2 L MCV 90.6 MCHC 34.5 RDW 15.6 Plt Count 106 L D MPV 10.5 Neutrophils % 82.5 Lymphocytes % 7.7 L D Monocytes % 9.4 Eosinophils % 0.1 D Basophils % 0.3 Basophilic Stippling 1+ Macrocytosis Few Morphology Comment Slide scanned INR 0.99 PTT (Actin FS) 37.0 H D Fibrinogen Puncture Site ABG pH ABG pCO2 at Pt Temp ABG pO2 at Pt Temp ABG HCO3 ABG O2 Sat (Measured) ABG O2 Content ABG Base Excess Dennis Test O2 Delivery Device Oxygen Flow Rate Vent Mode Vent Rate Mechanical Rate PEEP Pressure Support Vent Sodium 153 H Potassium 3.3 L D Chloride 124 H Carbon Dioxide 20 L Anion Gap 9 BUN 30 H Creatinine 2.7 H Creat Clearance w eGFR 29.18 POC Glucometer Random Glucose 263 H D Calcium 7.3 L Phosphorus 4.0 Magnesium 2.0 Total Bilirubin 0.5 D AST 93 H D ALT 131 H D Alkaline Phosphatase 319 H LD Total Total Protein 4.7 L Albumin 1.6 L VIRGIL Screen c-ANCA Proteinase 3 (PR3) p-ANCA Atypical p-ANCA Myeloperoxidase Ab Glomerular Base Memb Ab Hep-Induced Plt Ab Rapid Direct Antiglob Test 09/23/16 09/23/16 09/23/16 05:23 06:27 07:40 WBC RBC Hgb Hct MCV MCHC RDW Plt Count MPV Neutrophils % Lymphocytes % Monocytes % Eosinophils % Basophils % Basophilic Stippling Macrocytosis Morphology Comment INR PTT (Actin FS) Fibrinogen Puncture Site Right radial ABG pH 7.25 L ABG pCO2 at Pt Temp 46.3 H ABG pO2 at Pt Temp 153.0 H* ABG HCO3 19.5 L ABG O2 Sat (Measured) 99.2 H ABG O2 Content 17.5 ABG Base Excess -7.3 L Dennis Test Positive O2 Delivery Device Vent Oxygen Flow Rate 40% Vent Mode A/c Vent Rate 16 Mechanical Rate Yes PEEP 5.0 Pressure Support Vent 450 Sodium Potassium Chloride Carbon Dioxide Anion Gap BUN Creatinine Creat Clearance w eGFR POC Glucometer [phone] Random Glucose Calcium Phosphorus Magnesium Total Bilirubin AST ALT Alkaline Phosphatase LD Total Total Protein Albumin VIRGIL Screen c-ANCA Proteinase 3 (PR3) p-ANCA Atypical p-ANCA Myeloperoxidase Ab Glomerular Base Memb Ab Hep-Induced Plt Ab Rapid Direct Antiglob Test 09/23/16 09/23/16 09/23/16 08:35 08:41 10:00 WBC RBC Hgb Hct MCV MCHC RDW Plt Count MPV Neutrophils % Lymphocytes % Monocytes % Eosinophils % Basophils % Basophilic Stippling Macrocytosis Morphology Comment INR PTT (Actin FS) Fibrinogen Puncture Site ABG pH ABG pCO2 at Pt Temp ABG pO2 at Pt Temp ABG HCO3 ABG O2 Sat (Measured) ABG O2 Content ABG Base Excess Dennis Test O2 Delivery Device Oxygen Flow Rate Vent Mode Vent Rate Mechanical Rate PEEP Pressure Support Vent Sodium Potassium Chloride Carbon Dioxide Anion Gap BUN Creatinine Creat Clearance w eGFR POC Glucometer [phone] Random Glucose 267 H Calcium Phosphorus Magnesium Total Bilirubin AST ALT Alkaline Phosphatase LD Total Total Protein Albumin VIRGIL Screen c-ANCA Proteinase 3 (PR3) p-ANCA Atypical p-ANCA Myeloperoxidase Ab Glomerular Base Memb Ab Hep-Induced Plt Ab Rapid Direct Antiglob Test 09/23/16 09/23/16 09/23/16 10:39 15:35 15:35 WBC RBC Hgb Hct MCV MCHC RDW Plt Count MPV Neutrophils % Lymphocytes % Monocytes % Eosinophils % Basophils % Basophilic Stippling Macrocytosis Morphology Comment INR 0.99 PTT (Actin FS) 34.8 H Fibrinogen > 700.0 H Puncture Site ABG pH ABG pCO2 at Pt Temp ABG pO2 at Pt Temp ABG HCO3 ABG O2 Sat (Measured) ABG O2 Content ABG Base Excess Dennis Test O2 Delivery Device Oxygen Flow Rate Vent Mode Vent Rate Mechanical Rate PEEP Pressure Support Vent Sodium Potassium Chloride Carbon Dioxide Anion Gap BUN Creatinine Creat Clearance w eGFR POC Glucometer [phone] Random Glucose Calcium Phosphorus Magnesium Total Bilirubin AST ALT Alkaline Phosphatase LD Total Total Protein Albumin VIRGIL Screen c-ANCA Proteinase 3 (PR3) p-ANCA Atypical p-ANCA Myeloperoxidase Ab Glomerular Base Memb Ab Hep-Induced Plt Ab Rapid Direct Antiglob Test Negative 09/23/16 15:35 WBC RBC Hgb Hct MCV MCHC RDW Plt Count MPV Neutrophils % Lymphocytes % Monocytes % Eosinophils % Basophils % Basophilic Stippling Macrocytosis Morphology Comment INR PTT (Actin FS) Fibrinogen Puncture Site ABG pH ABG pCO2 at Pt Temp ABG pO2 at Pt Temp ABG HCO3 ABG O2 Sat (Measured) ABG O2 Content ABG Base Excess Dennis Test O2 Delivery Device Oxygen Flow Rate Vent Mode Vent Rate Mechanical Rate PEEP Pressure Support Vent Sodium Potassium Chloride Carbon Dioxide Anion Gap BUN Creatinine Creat Clearance w eGFR POC Glucometer Random Glucose Calcium Phosphorus Magnesium Total Bilirubin AST ALT Alkaline Phosphatase LD Total 254 H D Total Protein Albumin VIRGIL Screen c-ANCA Proteinase 3 (PR3) p-ANCA Atypical p-ANCA Myeloperoxidase Ab Glomerular Base Memb Ab Hep-Induced Plt Ab Rapid Direct Antiglob Test Active Medications Generic Name Dose Route Start Last Admin Trade Name Freq PRN Reason Stop Dose Admin Albuterol/Ipratropium 1 amp 09/22/16 12:15 09/23/16 17:40 Duoneb - NEB 1 amp QIDR SILVER Administration Artificial Tears 1 applic 09/23/16 10:00 09/23/16 10:24 Lacri-Lube Eye Ointment - OU 1 applic BID SILVER Administration Chlorhexidine Gluconate 1 applic 09/18/16 22:00 09/22/16 21:46 Hibiclens For Decolonization - TP 1 applic HS SILVER Administration Heparin Sodium (Porcine) 5,000 unit 09/23/16 14:00 09/23/16 14:50 Heparin - SQ 5,000 unit TID SILVER Administration IV Flush 4 ml 09/18/16 20:31 09/23/16 13:30 Triple Lumen Flush IVPUSH 4 ml PRN PRN Administration Protocol Propofol 100 mls @ 2.722 mls/hr 09/18/16 15:00 09/23/16 14:51 Diprivan - IVPB 13.2 mls/hr TITR SILVER Administration Protocol 5 MCG/KG/MIN Famotidine/Sodium Chloride 50 mls @ 100 mls/hr 09/19/16 10:00 09/23/16 10:05 Pepcid 20 Mg Premixed Ivpb - IVPB 100 mls/hr BID SILVER Administration Fentanyl 500 mcg/ Dextrose 100 mls @ 10 mls/hr 09/19/16 01:30 09/23/16 01:14 IVPB 10 mls/hr TITR SILVER Administration 50 MCG/HR Midazolam HCl 100 mg/ Sodium 100 mls @ 1 mls/hr 09/19/16 09:30 09/23/16 01:08 Chloride IVPB 10 mls/hr TITR SILVER Administration Protocol 1 MG/HR Piperacillin Sod/Tazobactam Sod 50 mls @ 100 mls/hr 09/20/16 09:00 09/23/16 17: 01 Zosyn 3.375gm Ivpb (Pre-Docked) IVPB 100 mls/hr Q8H-IV SILVER Administration Protocol Vancomycin HCl 1,500 mg/ 500 mls @ 250 mls/hr 09/23/16 17:00 Sodium Chloride IVPB 09/23/16 18:59 ONCE ONE Protocol Insulin Aspart 1 vial 09/23/16 09:00 09/23/16 14:50 Novolog Vial Sliding Scale - SQ 16 units Q4HWA SILVER Administration Protocol Insulin Detemir 20 units 09/23/16 22:00 Levemir Vial SQ HS SILVER Mupirocin 1 applic 09/18/16 22:00 09/23/16 10:04 Bactroban Ointment (For Decolonization) - NS 09/23/16 21:59 1 applic BID SILVER Administration Potassium Chloride 40 meq 09/23/16 10:00 09/23/16 10:24 Potassium Chloride Oral Liquid PO 40 meq BID SILVER Administration Thiamine HCl 200 mg 09/19/16 10:00 09/23/16 10:05 Vitamin B1 Injection - IVPB 200 mg DAILY SILVER Administration ASSESSMENT/PLAN: 25M found down with no PMH of DM presents to the ED unresponsive in DKA and severe sepsis. Diabetic ketoacidosis: patient has likely been a diabetic for a long time and has been undiagnosed and this is his initial presentation of DKA from untreated type 1 DM bicarb gtt restarted AG closed BGM better controlled today insulin gtt stoped on on sliding scale q4h with levemir 20 units HS continue D5W with bicarg @ 60ml/hr Endocrinology consult appreciated recommendations noted replete potassium aggressively PRN will need outpatient follow up with ophthalmology and podiatry HbA1C 12.9 Septic shock: tachycardic hypothermic on presentation now febrile leukocytosis on presentation now resolved with acute kidney injury lactic acidosis. requiring pressors which he no longer requires. Sputum Cx growing MRSA URI infection per family prior to presentation Pressors stopped remains febrile despite cooling blanket Sputum Cx-prelim yeast like organisms MRSA Will give one dose of vancomycin 1.5gm and check level in AM. DOse by level given renal failure BCx no growth so far UCx-no growth final continue Zosyn CSF cultures negative patient is having multi-organ failure Acute respiratory failure: from DKA sepsis/MRSA PNA CXR shows patchy infiltrates intubated ventilatory support ABG improved from admission continue ABx Possible seizure activity when sedation is held possible withdrawals from alcohol neurology consult appreciated sedation held to evaluate mental status and patient seems to be twitching his legs ? seizure activity vs withdrawals from alcohol continue versed gtt Thrombocytopenia: possible related to HIT vs sepsis HSQwas stopped HIT Ab -negative Hematology consult-Dr. Fernandez appreciated a whole array of labs sent will follow up No DVT on US duplex haptoglobin WNL LDH elevated will repeat restart HSQ DIC: patient was likely in DIC on presentation as he had low fibrinogen and increased fibrin degredation products and area of skin necrosis. Fibrinogen now back to normal likely from sepsis resolved lactic acidosis: resolved from sepsis and DKA Microcytic anemia: Send Iron studies check B12 Folate-pending polysubstance abuse: family now giving information that he was sniffing glue in addition to doing cocaine and drinking alcohol Will need counselling when extubated consider rehab Metabolic acidosis: improving but patient remains acidotic DKA resolved but remains acidotic will send methanol level and ethylene glycol level continue bicarb gtt Acute renal failure/Acute kidney injury:possible he has chronic renal failure given the fact his renal function is not improving Nephrology consult appreciated Cr 2.7 f/u renal work up and antibodies sent not improving with hydration Trend Cr avoid nephrotoxic drugs Antibodies work up VIRGIL DS DNA Myeloperoxidase Anca Etc pending we were considering HUS but given haptoglobin normal and no evidence of hemolysis it is unlikely called hematology lab to do a peripheral smear and will follow it up will recheck LDH as it was elevated but it could also be elevate due to other reasons such as sepsis f/u stool studies for E. COli [id number] Transaminitis/questionable history of Liver disease: LFTs improving transaminitis likely from shock liver from hypoperfusion vs alcoholic liver disease vs ingestion of toxic substances GI consult appreciated-will send serum copper and ceruloplasmin levels to r/o wilsons disease Liver US showed fatty liver likely from alcoholism vs obesity will need more history from the patient when he is stable alert and awake CTAP-no acute pancreatic pathology or any other acute pathology Pancreatitis:no CT scan evidence and patient not awake to give us history. Lipase elevated on admission Lipase level now back to normal already had GI rest and aggressive IVF continue tube feeds Hematuria: from traumatic arnold insertion and DIC resolved Hypernatremia:patient intially has pseudohyponatremia from hyperglycemia as corrected sodium was normal now patient is hypernatremic continue D5W increase free water through NGT to 400ml q6h trend sodium sodium 153 today Asthma: intubated at this time will address this if it is active once stable FEN: D5W with Bicarb @ 60ml/hr free water through NGT replete potassium for hypokalemia while on insulin gtt keep K+>4.0. hypernatremia see above for plan Promote TF PPx: SCDs stop HSQ for possible HIT Pepcid No PT consult at this time CCT 55 minutes ICU care Guarded prognosis Visit type - Emergency Visit Emergency Visit: Yes ED Registration Date: 09/18/16 Care time: The patient presented to the Emergency Department on the above date and was hospitalized for further evaluation of their emergent condition. - New Patient This patient is new to me today: No - Critical Care Critical Care patient: Yes Total Critical Care Time (in minutes): 55 Critical Care Statement: The care of this patient involved high complexity decision making to prevent further life threatening deterioration of the patient 's condition and/or to evalute & treat vital organ system(s) failure or risk of failure.
--- NOTE | 2016-09-23 20:13 | PN ---
Physical Exam: SUBJECTIVE: Patient seen and examined at bed side in ICU. intubated and sedated , off pressors. Febrile over night temp resolved with increased Versed and cooling blanket. Arnold flushed witch produced 2L of urine with sedimentation. Very few shistocytes on blood smear per Dr Mart patient history is evolving and more elaborate, many family members and friends first hand and second hand version of the story. 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 patient using crystal meth in [place], to being detained or questioned by immigration/customs officials in [facility] airport, while being questioned in detained room patient syncopized than released home soon after. questionable, ingestion of toxins in airport in fear of being caught by customs. prior Info: polyurea, polydispia prior to leaving to [place], URI after returning from [place]. OBJECTIVE: Vital Signs Period Temp Pulse Resp BP Sys/Gould Pulse Ox Last 24 Hr 97.7 F-99.8 F 77-115 14-20 124-164/66-100 97-100 GENERAL: intubated, sedated HEAD: Normal with no signs of trauma. EYES: PERRL, no sclera anicteric, conjunctiva clear. No ptosis. ENT: Ears normal, nares patent, oropharynx clear without exudates, moist mucous membranes. pressure ulcer on Right ear. NECK: Trachea midline, full range of motion, supple. LUNGS: scattered rhonchi, no wheezes, no crackles, no accessory muscle use. HEART: Regular rate and rhythm, S1, S2 without murmur, rub or gallop. ABDOMEN: Obese, Soft, nontender, nondistended, normoactive bowel sounds, no guarding, no rebound, no hepatosplenomegaly, no masses appreciated. swollen erthymatus excoriation of scrotum. EXTREMITIES: 2+ pulses, warm, well-perfused, no edema. NEUROLOGICAL: no facial asymmetry, patient sedated SKIN: two dark purple/black yimi largest rectangular flat patch right forearm 2 1/2 cm x 5cm with erythematus border no change in size or color. Laboratory Results - last 24 hr 09/19/16 09/21/16 09/22/16 19:30 11:00 19:55 WBC RBC Hgb Hct MCV MCHC RDW Plt Count MPV Neutrophils % Lymphocytes % Monocytes % Eosinophils % Basophils % Basophilic Stippling Macrocytosis Morphology Comment INR PTT (Actin FS) Fibrinogen Puncture Site ABG pH ABG pCO2 at Pt Temp ABG pO2 at Pt Temp ABG HCO3 ABG O2 Sat (Measured) ABG O2 Content ABG Base Excess Dennis Test O2 Delivery Device Oxygen Flow Rate Vent Mode Vent Rate Mechanical Rate PEEP Pressure Support Vent Sodium Potassium Chloride Carbon Dioxide Anion Gap BUN Creatinine Creat Clearance w eGFR POC Glucometer [phone] Random Glucose Calcium Phosphorus Magnesium Ferritin Total Bilirubin AST ALT Alkaline Phosphatase LD Total Total Protein Albumin Vitamin B12 Serum Folate VIRGIL Screen Negative c-ANCA <1:20 Proteinase 3 (PR3) <3.5 p-ANCA <1:20 Atypical p-ANCA <1:20 Myeloperoxidase Ab <9.0 Glomerular Base Memb Ab 2 Hep-Induced Plt Ab Rapid 0.179 Direct Antiglob Test 09/22/16 09/22/16 09/22/16 21:03 21:58 23:48 WBC RBC Hgb Hct MCV MCHC RDW Plt Count MPV Neutrophils % Lymphocytes % Monocytes % Eosinophils % Basophils % Basophilic Stippling Macrocytosis Morphology Comment INR PTT (Actin FS) Fibrinogen Puncture Site ABG pH ABG pCO2 at Pt Temp ABG pO2 at Pt Temp ABG HCO3 ABG O2 Sat (Measured) ABG O2 Content ABG Base Excess Dennis Test O2 Delivery Device Oxygen Flow Rate Vent Mode Vent Rate Mechanical Rate PEEP Pressure Support Vent Sodium Potassium Chloride Carbon Dioxide Anion Gap BUN Creatinine Creat Clearance w eGFR POC Glucometer [phone] [phone] Random Glucose Calcium Phosphorus Magnesium Ferritin Total Bilirubin AST ALT Alkaline Phosphatase LD Total Total Protein Albumin Vitamin B12 Serum Folate VIRGIL Screen c-ANCA Proteinase 3 (PR3) p-ANCA Atypical p-ANCA Myeloperoxidase Ab Glomerular Base Memb Ab Hep-Induced Plt Ab Rapid Direct Antiglob Test 09/23/16 09/23/16 09/23/16 00:57 02:17 03:13 WBC RBC Hgb Hct MCV MCHC RDW Plt Count MPV Neutrophils % Lymphocytes % Monocytes % Eosinophils % Basophils % Basophilic Stippling Macrocytosis Morphology Comment INR PTT (Actin FS) Fibrinogen Puncture Site ABG pH ABG pCO2 at Pt Temp ABG pO2 at Pt Temp ABG HCO3 ABG O2 Sat (Measured) ABG O2 Content ABG Base Excess Dennis Test O2 Delivery Device Oxygen Flow Rate Vent Mode Vent Rate Mechanical Rate PEEP Pressure Support Vent Sodium Potassium Chloride Carbon Dioxide Anion Gap BUN Creatinine Creat Clearance w eGFR POC Glucometer [phone] Random Glucose Calcium Phosphorus Magnesium Ferritin Total Bilirubin AST ALT Alkaline Phosphatase LD Total Total Protein Albumin Vitamin B12 Serum Folate VIRGIL Screen c-ANCA Proteinase 3 (PR3) p-ANCA Atypical p-ANCA Myeloperoxidase Ab Glomerular Base Memb Ab Hep-Induced Plt Ab Rapid Direct Antiglob Test 09/23/16 09/23/16 09/23/16 04:30 05:15 05:15 WBC 6.7 RBC 2.89 L Hgb 9.0 L Hct 26.2 L MCV 90.6 MCHC 34.5 RDW 15.6 Plt Count 106 L D MPV 10.5 Neutrophils % 82.5 Lymphocytes % 7.7 L D Monocytes % 9.4 Eosinophils % 0.1 D Basophils % 0.3 Basophilic Stippling 1+ Macrocytosis Few Morphology Comment Slide scanned INR 0.99 PTT (Actin FS) 37.0 H D Fibrinogen Puncture Site ABG pH ABG pCO2 at Pt Temp ABG pO2 at Pt Temp ABG HCO3 ABG O2 Sat (Measured) ABG O2 Content ABG Base Excess Dennis Test O2 Delivery Device Oxygen Flow Rate Vent Mode Vent Rate Mechanical Rate PEEP Pressure Support Vent Sodium Potassium Chloride Carbon Dioxide Anion Gap BUN Creatinine Creat Clearance w eGFR POC Glucometer [phone] Random Glucose Calcium Phosphorus Magnesium Ferritin Total Bilirubin AST ALT Alkaline Phosphatase LD Total Total Protein Albumin Vitamin B12 Serum Folate VIRGIL Screen c-ANCA Proteinase 3 (PR3) p-ANCA Atypical p-ANCA Myeloperoxidase Ab Glomerular Base Memb Ab Hep-Induced Plt Ab Rapid Direct Antiglob Test 09/23/16 09/23/16 09/23/16 05:15 05:23 06:27 WBC RBC Hgb Hct MCV MCHC RDW Plt Count MPV Neutrophils % Lymphocytes % Monocytes % Eosinophils % Basophils % Basophilic Stippling Macrocytosis Morphology Comment INR PTT (Actin FS) Fibrinogen Puncture Site ABG pH ABG pCO2 at Pt Temp ABG pO2 at Pt Temp ABG HCO3 ABG O2 Sat (Measured) ABG O2 Content ABG Base Excess Dennis Test O2 Delivery Device Oxygen Flow Rate Vent Mode Vent Rate Mechanical Rate PEEP Pressure Support Vent Sodium 153 H Potassium 3.3 L D Chloride 124 H Carbon Dioxide 20 L Anion Gap 9 BUN 30 H Creatinine 2.7 H Creat Clearance w eGFR 29.18 POC Glucometer [phone] Random Glucose 263 H D Calcium 7.3 L Phosphorus 4.0 Magnesium 2.0 Ferritin Total Bilirubin 0.5 D AST 93 H D ALT 131 H D Alkaline Phosphatase 319 H LD Total Total Protein 4.7 L Albumin 1.6 L Vitamin B12 Serum Folate VIRGIL Screen c-ANCA Proteinase 3 (PR3) p-ANCA Atypical p-ANCA Myeloperoxidase Ab Glomerular Base Memb Ab Hep-Induced Plt Ab Rapid Direct Antiglob Test 09/23/16 09/23/16 09/23/16 07:40 08:35 08:41 WBC RBC Hgb Hct MCV MCHC RDW Plt Count MPV Neutrophils % Lymphocytes % Monocytes % Eosinophils % Basophils % Basophilic Stippling Macrocytosis Morphology Comment INR PTT (Actin FS) Fibrinogen Puncture Site Right radial ABG pH 7.25 L ABG pCO2 at Pt Temp 46.3 H ABG pO2 at Pt Temp 153.0 H* ABG HCO3 19.5 L ABG O2 Sat (Measured) 99.2 H ABG O2 Content 17.5 ABG Base Excess -7.3 L Dennis Test Positive O2 Delivery Device Vent Oxygen Flow Rate 40% Vent Mode A/c Vent Rate 16 Mechanical Rate Yes PEEP 5.0 Pressure Support Vent 450 Sodium Potassium Chloride Carbon Dioxide Anion Gap BUN Creatinine Creat Clearance w eGFR POC Glucometer [phone] Random Glucose Calcium Phosphorus Magnesium Ferritin Total Bilirubin AST ALT Alkaline Phosphatase LD Total Total Protein Albumin Vitamin B12 Serum Folate VIRGIL Screen c-ANCA Proteinase 3 (PR3) p-ANCA Atypical p-ANCA Myeloperoxidase Ab Glomerular Base Memb Ab Hep-Induced Plt Ab Rapid Direct Antiglob Test 09/23/16 09/23/16 09/23/16 10:00 10:39 15:35 WBC RBC Hgb Hct MCV MCHC RDW Plt Count MPV Neutrophils % Lymphocytes % Monocytes % Eosinophils % Basophils % Basophilic Stippling Macrocytosis Morphology Comment INR PTT (Actin FS) Fibrinogen Puncture Site ABG pH ABG pCO2 at Pt Temp ABG pO2 at Pt Temp ABG HCO3 ABG O2 Sat (Measured) ABG O2 Content ABG Base Excess Dennis Test O2 Delivery Device Oxygen Flow Rate Vent Mode Vent Rate Mechanical Rate PEEP Pressure Support Vent Sodium Potassium Chloride Carbon Dioxide Anion Gap BUN Creatinine Creat Clearance w eGFR POC Glucometer [phone] Random Glucose 267 H Calcium Phosphorus Magnesium Ferritin Total Bilirubin AST ALT Alkaline Phosphatase LD Total Total Protein Albumin Vitamin B12 Serum Folate VIRGIL Screen c-ANCA Proteinase 3 (PR3) p-ANCA Atypical p-ANCA Myeloperoxidase Ab Glomerular Base Memb Ab Hep-Induced Plt Ab Rapid Direct Antiglob Test Negative 09/23/16 09/23/16 09/23/16 15:35 15:35 17:15 WBC RBC Hgb Hct MCV MCHC RDW Plt Count MPV Neutrophils % Lymphocytes % Monocytes % Eosinophils % Basophils % Basophilic Stippling Macrocytosis Morphology Comment INR 0.99 PTT (Actin FS) 34.8 H Fibrinogen > 700.0 H Puncture Site ABG pH ABG pCO2 at Pt Temp ABG pO2 at Pt Temp ABG HCO3 ABG O2 Sat (Measured) ABG O2 Content ABG Base Excess Dennis Test O2 Delivery Device Oxygen Flow Rate Vent Mode Vent Rate Mechanical Rate PEEP Pressure Support Vent Sodium Potassium Chloride Carbon Dioxide Anion Gap BUN Creatinine Creat Clearance w eGFR POC Glucometer Random Glucose Calcium Phosphorus Magnesium Ferritin 757.631 H Total Bilirubin AST ALT Alkaline Phosphatase LD Total 254 H D Total Protein Albumin Vitamin B12 Serum Folate VIRGIL Screen c-ANCA Proteinase 3 (PR3) p-ANCA Atypical p-ANCA Myeloperoxidase Ab Glomerular Base Memb Ab Hep-Induced Plt Ab Rapid Direct Antiglob Test 09/23/16 09/23/16 17:15 18:28 WBC RBC Hgb Hct MCV MCHC RDW Plt Count MPV Neutrophils % Lymphocytes % Monocytes % Eosinophils % Basophils % Basophilic Stippling Macrocytosis Morphology Comment INR PTT (Actin FS) Fibrinogen Puncture Site ABG pH ABG pCO2 at Pt Temp ABG pO2 at Pt Temp ABG HCO3 ABG O2 Sat (Measured) ABG O2 Content ABG Base Excess Dennis Test O2 Delivery Device Oxygen Flow Rate Vent Mode Vent Rate Mechanical Rate PEEP Pressure Support Vent Sodium Potassium Chloride Carbon Dioxide Anion Gap BUN Creatinine Creat Clearance w eGFR POC Glucometer [phone] Random Glucose Calcium Phosphorus Magnesium Ferritin Total Bilirubin AST ALT Alkaline Phosphatase LD Total Total Protein Albumin Vitamin B12 3164 H Serum Folate 8 VIRGIL Screen c-ANCA Proteinase 3 (PR3) p-ANCA Atypical p-ANCA Myeloperoxidase Ab Glomerular Base Memb Ab Hep-Induced Plt Ab Rapid Direct Antiglob Test Active Medications Generic Name Dose Route Start Last Admin Trade Name Freq PRN Reason Stop Dose Admin Albuterol/Ipratropium 1 amp 09/22/16 12:15 09/23/16 17:40 Duoneb - NEB 1 amp QIDR SILVER Administration Artificial Tears 1 applic 09/23/16 10:00 09/23/16 10:24 Lacri-Lube Eye Ointment - OU 1 applic BID SILVER Administration Chlorhexidine Gluconate 1 applic 09/18/16 22:00 09/22/16 21:46 Hibiclens For Decolonization - TP 1 applic HS SILVER Administration Heparin Sodium (Porcine) 5,000 unit 09/23/16 14:00 09/23/16 14:50 Heparin - SQ 5,000 unit TID SILVER Administration IV Flush 4 ml 09/18/16 20:31 09/23/16 13:30 Triple Lumen Flush IVPUSH 4 ml PRN PRN Administration Protocol Propofol 100 mls @ 2.722 mls/hr 09/18/16 15:00 09/23/16 14:51 Diprivan - IVPB 13.2 mls/hr TITR SLIVER Administration Protocol 5 MCG/KG/MIN Famotidine/Sodium Chloride 50 mls @ 100 mls/hr 09/19/16 10:00 09/23/16 10:05 Pepcid 20 Mg Premixed Ivpb - IVPB 100 mls/hr BID SILVER Administration Fentanyl 500 mcg/ Dextrose 100 mls @ 10 mls/hr 09/19/16 01:30 09/23/16 01:14 IVPB 10 mls/hr TITR SILVER Administration 50 MCG/HR Midazolam HCl 100 mg/ Sodium 100 mls @ 1 mls/hr 09/19/16 09:30 09/23/16 01:08 Chloride IVPB 10 mls/hr TITR SILVER Administration Protocol 1 MG/HR Piperacillin Sod/Tazobactam Sod 50 mls @ 100 mls/hr 09/20/16 09:00 09/23/16 17: 01 Zosyn 3.375gm Ivpb (Pre-Docked) IVPB 100 mls/hr Q8H-IV SILVER Administration Protocol Insulin Aspart 1 vial 09/23/16 09:00 09/23/16 18:31 Novolog Vial Sliding Scale - SQ 12 units Q4HWA SILVER Administration Protocol Insulin Detemir 20 units 09/23/16 22:00 Levemir Vial SQ HS SILVER Mupirocin 1 applic 09/18/16 22:00 09/23/16 10:04 Bactroban Ointment (For Decolonization) - NS 09/23/16 21:59 1 applic BID SILVER Administration Potassium Chloride 40 meq 09/23/16 10:00 09/23/16 10:24 Potassium Chloride Oral Liquid PO 40 meq BID SILVER Administration Thiamine HCl 200 mg 09/19/16 10:00 09/23/16 10:05 Vitamin B1 Injection - IVPB 200 mg DAILY SILVER Administration ASSESSMENT/PLAN: 25M found down with no PMH of DM presents to the ED unresponsive in DKA and sepsis shock. Leukocytosis resolved, tachy cardic, fever last night, on levophed, lactic acidosis trended down. will keep sedated for another night total of 6 days, to cover withdraw window. Diabetic ketoacidosis: initial presentation of DKA from untreated type 1 DM continue D5W with bicarg @ 60ml/hr D5w 20Kcl 75ml/hr gap closed, BGM bettercontrolled still goes over 200's patient requiring large units of insulin, started levamir 20 units and proportional ISS, per Endocrinology BMP q4h HbA1C 12.9 Septic Shock: leukocytosis resolved, tachycardic, fever last night, BP stable off of pressors, lactic acidosis trending down. Multiorgan failure keep CVP 8-12 if needed IVNS 500cc Bolus Off of pressors to maintain MAP >65 unknown source at this time, possible sinusitis source. on antibiotic. Sputum Cx growing MRSA. BCx, UCx, CSF cultures No growth, continue to follow. agree with starting Vanco and renal dosing, f/u morning vanco level Continue Zosyn BCx no growth so far UCx-no growth final f/u CSF cultures patient is having multi-organ failure Acute respiratory failure: 2/2 to metabolic DKA, PNA, sinusitis, intubated and sedated CXR patchy infiltrate not a candidate for weaning at this time due to sedation requirements, and agitated when light sedation. Ventilatory support, will consider to ween off tomorrow. ABG improved Spontaneous breathing trials as tolerated when mental status improved and will keep sedated for anther couple of days to cover withdraw window. Pancrease normal on CT mixed metabolic and respiratory acidosis. restart bicarb gtt today Acute uncompensated primary acidosis with metabolic acidosis, with a normal anion GAP, expected PH=7.24, CO2 45, HCO3 20. on bicarb gtt ventilator Lactic acidosis:resolved 2/2 DKA and dehydration, hypovolemia trend lactic acid IVF toxic metabolic encephalopathy - Possible seizure activity when sedation is lightened, in light of history patient drinks 15 to 20 beers daily. possible withdrawals f/u monitoring labs and CSF cultures. Continue Versed Will consider to ween off Versed and intubation to asses mental status tomorrow. will need to Abdifatah off Versed when weening off. Thrombocytopenia: less likely related to HIT Stop heparin sq HIT Ab negative Send serotonin release assay Hematology consult-Dr. Fernandez LDH elevated haptoglobin wnl restarted on Hepran DIC: (low fibrinogen <100, inc fibrin degradation products, skin necrosis) improving, fibrinogen normalized, platelets slightly improved. Coags WNL thrombosis superficial bilateral cephalic veins- most likely secondary to DIC: no change in size and color. 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 patient using crestal meth in [place], to being detained or questioned by imigration/customs officials in [facility] [place] and [facility] of syncope in alf room, questionable ingestion of toxins in air port vs on plain. monitor for withdrawal supportive care Acute kidney injury: cr 2.7 worsening today. most likely 2/2 prerenal azotemia or ATN or primary acute on chronic kidney disease or toxin induced. IVF lasix today follow kidney function avoid nephrotoxic drugs C'3 and C'4, Antibodies work up VIRGIL DS DNA Myeloperoxidase Anca Etc pending HUS less likely, but given haptoglobin normal and no evidence of hemolysis it is unlikely called hematology lab to do a peripheral smear and will follow it up will recheck LDH as it was elevated but it could also be elevate due to other reasons such as sepsis f/u stool studies for E. COli O157 Transaminitis: questionable history of Liver disease, alcohol, drug, Tylenol use , possibly secondary to shock LFTs decreasing today, alk phos increased today. fatty liver on US: alcoholism vs obesity IVF CT Abdomen pelvis with po contrast can not give IV contrast as patient is in renal failure. GI consult appreciated-will follow up serum copper and ceruloplasmin levels to r /o wilsons disease pancreatitis less likely, no evidence on Ct, Lipase elevated on admission currently trended back down. currently on bowel rest IVF Hematuria:resolved, 2/2 traumatic arnold insertion Hypernatremia: patient initially has pseudohyponatremia from hyperglycemia as corrected sodium was normal now patient is hypernatremic D5W 75cc/hr continue free water through NGT inc free water through NGT 400ml/hr q6h per Dr. Patton Microcytic anemia: f/u Iron studies B12 Folate-elevated Asthma: duonebs intubated at this time FEN: D5w @ 75ml/hr/ and free water through NGT replete potassium for hypokalemia while on insulin gtt keep K+>4.0. hypernatremia see above for plan NPO - enteral feeds PPx: Heparin sq tid, heparin antibody negative Pepcid No PT consult at this time dispo: continue ICU monitoring Visit type - Emergency Visit Emergency Visit: Yes ED Registration Date: 09/18/16 Care time: The patient presented to the Emergency Department on the above date and was hospitalized for further evaluation of their emergent condition. - New Patient This patient is new to me today: No - Critical Care Critical Care patient: Yes Total Critical Care Time (in minutes): 52 Critical Care Statement: The care of this patient involved high complexity decision making to prevent further life threatening deterioration of the patient 's condition and/or to evalute & treat vital organ system(s) failure or risk of failure.
[2016-09-23] MEDS: CHLORHEXIDINE GLUCONATE 4% CLEANSER FOR DECOLONIZATION TP SCH (21:14)
--- NOTE | 2016-09-23 21:37 | PN ---
Progress Note (short form) - Note Progress Note: Patient seen and examined Intubated/sedated Last Vital Signs Temp Pulse Resp BP Pulse Ox 99 F 100 H 18 129/75 97 09/23/16 20:00 09/23/16 20:00 09/23/16 21:15 09/23/16 20:00 09/23/16 20:16 intubated/sedated Cor: RSR, No murmurs, No gallops Lungs: Clear to P&A ant. Abd: Soft, Normal bowel sounds, No organomegaly Ext:No significant edema Abnormal Lab Results 09/23/16 09/23/16 09/23/16 05:15 05:15 05:15 RBC 2.89 L Hgb 9.0 L Hct 26.2 L Plt Count 106 L D Lymphocytes % 7.7 L D PTT (Actin FS) 37.0 H D Fibrinogen ABG pH ABG pCO2 at Pt Temp ABG pO2 at Pt Temp ABG HCO3 ABG O2 Sat (Measured) ABG Base Excess Sodium 153 H Potassium 3.3 L D Chloride 124 H Carbon Dioxide 20 L BUN 30 H Creatinine 2.7 H Random Glucose 263 H D Calcium 7.3 L Ferritin AST 93 H D ALT 131 H D Alkaline Phosphatase 319 H LD Total Total Protein 4.7 L Albumin 1.6 L Vitamin B12 09/23/16 09/23/16 09/23/16 07:40 10:00 15:35 RBC Hgb Hct Plt Count Lymphocytes % PTT (Actin FS) 34.8 H Fibrinogen > 700.0 H ABG pH 7.25 L ABG pCO2 at Pt Temp 46.3 H ABG pO2 at Pt Temp 153.0 H* ABG HCO3 19.5 L ABG O2 Sat (Measured) 99.2 H ABG Base Excess -7.3 L Sodium Potassium Chloride Carbon Dioxide BUN Creatinine Random Glucose 267 H Calcium Ferritin AST ALT Alkaline Phosphatase LD Total Total Protein Albumin Vitamin B12 09/23/16 09/23/16 09/23/16 15:35 17:15 17:15 RBC Hgb Hct Plt Count Lymphocytes % PTT (Actin FS) Fibrinogen ABG pH ABG pCO2 at Pt Temp ABG pO2 at Pt Temp ABG HCO3 ABG O2 Sat (Measured) ABG Base Excess Sodium Potassium Chloride Carbon Dioxide BUN Creatinine Random Glucose Calcium Ferritin 757.631 H AST ALT Alkaline Phosphatase LD Total 254 H D Total Protein Albumin Vitamin B12 3164 H Home Medication List Medication Instructions Recorded Confirmed Type NK [No Known Home Medication] 09/18/16 09/18/16 History Active Medications Generic Name Dose Route Start Last Admin Trade Name Freq PRN Reason Stop Dose Admin Albuterol/Ipratropium 1 amp 09/22/16 12:15 09/23/16 17:40 Duoneb - NEB 1 amp QIDR SILVER Administration Artificial Tears 1 applic 09/23/16 10:00 09/23/16 21:38 Lacri-Lube Eye Ointment - OU 1 applic BID SILVER Administration Chlorhexidine Gluconate 1 applic 09/18/16 22:00 09/23/16 21:14 Hibiclens For Decolonization - TP 1 applic HS SILVER Administration Heparin Sodium (Porcine) 5,000 unit 09/23/16 14:00 09/23/16 21:13 Heparin - SQ 5,000 unit TID SILVER Administration IV Flush 4 ml 09/18/16 20:31 09/23/16 13:30 Triple Lumen Flush IVPUSH 4 ml PRN PRN Administration Protocol Propofol 100 mls @ 2.722 mls/hr 09/18/16 15:00 09/23/16 14:51 Diprivan - IVPB 13.2 mls/hr TITR SILVER Administration Protocol 5 MCG/KG/MIN Famotidine/Sodium Chloride 50 mls @ 100 mls/hr 09/19/16 10:00 09/23/16 21:13 Pepcid 20 Mg Premixed Ivpb - IVPB 100 mls/hr BID SILVER Administration Fentanyl 500 mcg/ Dextrose 100 mls @ 10 mls/hr 09/19/16 01:30 09/23/16 01:14 IVPB 10 mls/hr TITR SILVER Administration 50 MCG/HR Midazolam HCl 100 mg/ Sodium 100 mls @ 1 mls/hr 09/19/16 09:30 09/23/16 20:44 Chloride IVPB 10 mls/hr TITR SILVER Administration Protocol 1 MG/HR Piperacillin Sod/Tazobactam Sod 50 mls @ 100 mls/hr 09/20/16 09:00 09/23/16 17: 01 Zosyn 3.375gm Ivpb (Pre-Docked) IVPB 100 mls/hr Q8H-IV SILVER Administration Protocol Insulin Aspart 1 vial 09/23/16 09:00 09/23/16 21:13 Novolog Vial Sliding Scale - SQ 8 units Q4HWA SILVER Administration Protocol Insulin Detemir 20 units 09/23/16 22:00 09/23/16 21:12 Levemir Vial SQ 20 units HS SILVER Administration Potassium Chloride 40 meq 09/23/16 10:00 09/23/16 21:13 Potassium Chloride Oral Liquid PO 40 meq BID SILVER Administration Thiamine HCl 200 mg 09/19/16 10:00 09/23/16 10:05 Vitamin B1 Injection - IVPB 200 mg DAILY SILVER Administration A/P 25 y/o patient with h/opolysubstance abuse presenting with DIC/ multiorganfailure. Was found unresponsive . DIC: onpresentation fibrinogen was < 100 c/w DIC. PArameters have improved since en. currently fibrinogen is 700 Reviewed peripheral smear -- anisocytosis/poikilocytosis, occ. schistocytes LDH--marginally elevated/haptoglobin nl--this is not c/w TTP/HUS Will check antiphospholipid panel HIT neg. VIRGIL neg./ SIFE neg. anemia of chronic disease will follow
[2016-09-23] MEDS ORDERED: INSULIN DETEMIR 100 UNITS/ML MDV SQ SCH (22:00)
[2016-09-24] MEDS: FENTANYL INJECTION 500 MCG in DEXTROSE 5%-WATER - 90 ML IVPB SCH ×2 (00:25→01:59)
[2016-09-24] MEDS: PROPOFOL 100 ML IVPB SCH ×3 (00:25→18:44)
[2016-09-24] MEDS: PIPERACILLIN/TAZOB 3.375 GM 50 ML IVPB SCH ×3 (02:02→17:17)
[2016-09-24] MEDS: ALBUTEROL SO4 2.5/IPRATROPIUM 0.5 INH SOL 3 ML VIAL.NEB. NEB SCH ×4 (05:43→23:29)
[2016-09-24 06:06] LABS: HSV 1/2 CSF 0.19 IV (<=0.89); HSV 1/2 IGG CSF <0.34 IV (<=0.89); MUMPS AB IGG CSF < 5.0 AU/mL (<=10.9); MUMPS AB IGM CSF 0.48 IV (<=0.79); VARICELLA-ZOSTER IGM CSF 0 ISR (<=0.90); VARICELLA-ZOSTER IgG CSF < 10 IV (.)
[2016-09-24 06:06] LABS: COMPLEMENT C3 107 mg/dL (82-167); COMPLEMENT C4 39 mg/dL (14-44)
[2016-09-24] MEDS: INSULIN SLIDING SCALE (NOVOLOG) 1 VIAL SQ SCH ×5 (06:24→22:06)
[2016-09-24] MEDS: HEPARIN NA (PORCINE) 5,000 UNITS/ML 1ML VIAL SQ SCH ×3 (06:24→21:51)
[2016-09-24 06:44] LABS: BASOPHIL 0.2 % (0-2.0); EOSINOPHIL 2.5 % (0-4.5); MCH 30.9 pg (25.7-33.7); MCHC 33.8 g/dl (32.0-35.9); MEAN CELL VOLUME 91.4 fl (80-96); MEAN PLT VOLUME 10.1 fl (7.5-11.1); NEUTROPHILS 68.3 % (42.8-82.8); PLATELET COUNT 117 K/MM3 (134-434); RDW 15.7 % (11.9-15.9); WHITE BLOOD COUNT 5.6 K/mm3 (4.0-10.0)
[2016-09-24] MEDS: MIDAZOLAM 100 MG in SODIUM CHLORIDE 100 ML IVPB SCH (06:56)
[2016-09-24 07:01] LABS: ACTIVATED PTT 35.5 SECONDS (26.9-34.4)
[2016-09-24 07:09] LABS: ALBUMIN 1.5 g/dl (3.4-5.0); BILIRUBIN,TOTAL 0.5 mg/dL (0.2-1.0); CALCIUM 7.4 mg/dL (8.5-10.1); CREATININE 2.5 mg/dL (0.7-1.3); MAGNESIUM 2.1 mg/dL (1.8-2.4); PHOSPHOROUS 3.2 mg/dL (2.5-4.9); TOT PROT 4.8 g/dl (6.4-8.2)
--- NOTE | 2016-09-24 08:25 | PN ---
Progress Note, Physician Chief Complaint: ID Low grade temps noted but on a cooling blanket Vancomycin added for MRSA positive Zosyn day 4 presumed aspiration - Current Medication List Current Medications: Active Medications Albuterol/Ipratropium (Duoneb -) 1 amp NEB QIDR [facility] Last Admin: 09/24/16 05:43 Dose: 1 amp Artificial Tears (Lacri-Lube Eye Ointment -) 1 applic OU BID [facility] Last Admin: 09/23/16 21:38 Dose: 1 applic Chlorhexidine Gluconate (Hibiclens For Decolonization -) 1 applic TP HS [facility] Last Admin: 09/23/16 21:14 Dose: 1 applic Heparin Sodium (Porcine) (Heparin -) 5,000 unit SQ TID [facility] Last Admin: 09/24/16 06:24 Dose: 5,000 unit IV Flush (Triple Lumen Flush) 4 ml IVPUSH PRN PRN PRN Reason: Protocol Last Admin: 09/23/16 13:30 Dose: 4 ml Propofol (Diprivan -) 100 mls @ 2.722 mls/hr IVPB TITR [facility]; 5 MCG/KG/MIN PRN Reason: Protocol Last Admin: 09/24/16 00:25 Dose: 13.608 mls/hr Famotidine/Sodium Chloride (Pepcid 20 Mg Premixed Ivpb -) 50 mls @ 100 mls/hr IVPB BID [facility] Last Admin: 09/23/16 21:13 Dose: 100 mls/hr Fentanyl 500 mcg/ Dextrose 100 mls @ 10 mls/hr IVPB TITR [facility] PRN Reason: 50 MCG/HR Last Admin: 09/24/16 01:59 Dose: 10 mls/hr Midazolam HCl 100 mg/ Sodium (Chloride) 100 mls @ 1 mls/hr IVPB TITR [facility]; 1 MG/ HR PRN Reason: Protocol Last Admin: 09/24/16 06:56 Dose: 10 mls/hr Piperacillin Sod/Tazobactam Sod (Zosyn 3.375gm Ivpb (Pre-Docked)) 50 mls @ 100 mls/hr IVPB Q8H-IV [facility] PRN Reason: Protocol Last Admin: 09/24/16 02:02 Dose: 100 mls/hr Vancomycin HCl 1,500 mg/ (Dextrose) 500 mls @ 250 mls/hr IVPB ONCE ONE PRN Reason: Protocol Stop: 09/24/16 10:17 Insulin Aspart (Novolog Vial Sliding Scale -) 1 vial SQ Q4HWA [facility] PRN Reason: Protocol Last Admin: 09/24/16 06:24 Dose: 10 units Insulin Detemir (Levemir Vial) 20 units SQ HS [facility] Last Admin: 09/23/16 21:12 Dose: 20 units Potassium Chloride (Potassium Chloride Oral Liquid) 40 meq PO BID [facility] Last Admin: 09/23/16 21:13 Dose: 40 meq Thiamine HCl (Vitamin B1 Injection -) 200 mg IVPB DAILY [facility] Last Admin: 09/23/16 10:05 Dose: 200 mg - Objective Vital Signs: Vital Signs Temperature 97.9 F 09/24/16 06:00 Pulse Rate 96 H 09/24/16 06:00 Respiratory Rate 18 09/24/16 06:36 Blood Pressure 117/72 09/24/16 06:00 O2 Sat by Pulse Oximetry (%) 97 09/23/16 20:16 Constitutional: Yes: Other (Intubated) Labs: CBC, BMP 09/24/16 05:45 09/24/16 06:00 INR, PTT INR 1.00 (0.82-1.09) 09/24/16 05:45 Fibrinogen > 700.0 mg/dL (238-498) H 09/23/16 15:35 Problem List - Problems (1) Acute renal insufficiency Code(s): N28.9 - DISORDER OF KIDNEY AND URETER, UNSPECIFIED (2) Altered mental status Code(s): R41.82 - ALTERED MENTAL STATUS, UNSPECIFIED Qualifiers: Qualified Code(s): R40.1 - Stupor (3) DKA (diabetic ketoacidosis) Code(s): E13.10 - OTH DIABETES MELLITUS WITH KETOACIDOSIS WITHOUT COMA Qualifiers: Qualified Code(s): E10.11 - Type 1 diabetes mellitus with ketoacidosis with coma (4) Lactic acidosis Code(s): E87.2 - ACIDOSIS (5) Sepsis Code(s): A41.9 - SEPSIS, UNSPECIFIED ORGANISM Assessment/Plan Laboratory Tests 09/24/16 09/24/16 05:45 06:00 WBC 5.6 Hgb 9.0 L Hct 26.7 L Plt Count 117 L Neutrophils % 68.3 Lymphocytes % 12.3 D Monocytes % 16.7 H Eosinophils % 2.5 D Basophils % 0.2 BUN 29 H Creatinine 2.5 H Creat Clearance w eGFR 31.89 Asessment Suspected possible drug/chemicals Respiratory failure Low grade temps SEAN DKA Metabolic acidosis Plan As discussed will complete 7 days of Zosyn Dose of Vanco added based on random level Junie JONES
--- NOTE | 2016-09-24 08:27 | PN ---
Teaching Attending Note Name of Resident: Danny Shine ATTENDING PHYSICIAN STATEMENT I saw and evaluated the patient. I reviewed the resident's note and discussed the case with the resident. I agree with the resident's findings and plan as documented. SUBJECTIVE:no events over night . had a fever yesterday afternoon ( not documented 100.5 ) OBJECTIVE: sedated, intubated HEENT: round equal pupils , reactive to light , ET tube in . no JVD, R IJ in Cv; RRR, NL S1, S2, no MRG Lungs : bilateral rales Abd ; soft, decreased BS Ext : no edema over LE . 2 areas of black coloration on R fore arm with ( 4x3 cm , and 1x1 cm . ) with mm surrounding erythema ASSESSMENT AND PLAN: 25 y/o man withh/o Asthma who presented after being found down, he was found to be in DKA, developed Acute resp failure , an also was found tohave metabolic acidosis, LFTs abnormalities and eleated lipase. 1- Acute resp failure: mltifactorial, possible drugs, metabolic acidosis and PNA . I am not sure if this patient is developing ARDS - Cxray this am worse. ? ARDS, Vs PNA - follow ABG this am - vanco level 14 , will give another dose . approved by ID ( presumptive MRSA in sputum ) - cont zosyn - cont vent support and sedation. 2- DKA : resolved , AG closed. - cont long acting insulin and SSI q 4 hr 3- Metabolic acidosis: despite treating DKA . could be due to renal failure and can't R/O possible ingestion - cont bicarb gtt - methanol and ethylin glycol levels pending 4- Severe Sepsis : source could be PNA . as sputum is growing MRSA and initial CT scan with basilar infiltrate and air bronchogram. - cont zosyn . give another dose of vanco 5- Alcohol abuse, possible withdrawal . cont versed when extubated he needs to be on standing benzo taper 6- SEAN vs CKD : stable cr since admission . probably CKD renal US was limited but no hydro in R side HUS unlikely after d/w heme and renal ( smear reviewed by heme ) 7- Transaminitis ; likely due to sepsis , hypotension ,alcohol and medications (sedatives and Abx ) . monitor ceruloplasmin pending 8- Possible acute pancreatitis : although CT scan showed nl pancreas, he has elevated Lipase and not able to evaluate for typical signs and sx. any way received IVf and now being fed. no change in management 9- Normocytic anemia :likely was hemeconcentrated on admission, now back to base line after hydration. no evidence of active bleeding . and haptoglobin is NL indicating no hemolysis . - iron studies pending 10 - DIC : likely due to severe sepsis . Not sure if ingestion has contributed. - fibrinogen is elevated now , with NL INR plt . > 100k 11- hypernatremia : cont D5w increase free water to 35 cc/hr cont 400 cc bolus q 8 hr dispo : ICU level of care Critical Care Total Critical Care Time (in minutes): 45 Critical Care Statement: The care of this patient involved high complexity decision making to prevent further life threatening deterioration of the patient 's condition and/or to evalute & treat vital organ system(s) failure or risk of failure.
--- NOTE | 2016-09-24 08:36 | PN ---
Physical Exam: SUBJECTIVE: Patient seen and examined at bed side. Fever T 100.5 last night (undocumented), I put on cooling blanket and fever subsided. had two sedation Vacation last night. Decreased versed from 10 to 5 and now stopped. tolerated CPAP for 6 hours, put back on AC. Vanco level 14.7, will redose today . Diuresed well with lasix yesterday. Increased levamir and ISS, if tube feeds are stopped for any reason, will give D5. to note: Family member reports finding a white fine crystals substance at home belonging to patient. OBJECTIVE: Vital Signs Period Temp Pulse Resp BP Sys/Gould Pulse Ox Last 24 Hr 97.9 F-99.8 F 77-111 16-20 117-141/66-81 97-100 GENERAL: intubated, sedated HEAD: Normal with no signs of trauma. EYES: PERRL, no sclera anicteric, conjunctiva clear. No ptosis. ENT: Ears normal, nares patent, oropharynx clear without exudates, moist mucous membranes. pressure ulcer on Right ear. NECK: Trachea midline, full range of motion, supple. LUNGS: scattered rhonchi, no wheezes, no crackles, no accessory muscle use. HEART: Regular rate and rhythm, S1, S2 without murmur, rub or gallop. ABDOMEN: Obese, Soft, nontender, nondistended, normoactive bowel sounds, no guarding, no rebound, no hepatosplenomegaly, no masses appreciated. swollen erthymatus excoriation of scrotum. EXTREMITIES: 2+ pulses, warm, well-perfused, no edema. NEUROLOGICAL: no facial asymmetry, patient sedated SKIN: two dark purple/black yimi largest rectangular flat patch right forearm 2 1/2 cm x 5cm with erythematus border no change in size or color. Laboratory Results - last 24 hr 09/19/16 09/22/16 09/23/16 19:30 14:20 05:15 WBC RBC Hgb Hct MCV MCHC RDW Plt Count MPV Neutrophils % Lymphocytes % Monocytes % Eosinophils % Basophils % Basophilic Stippling 1+ Macrocytosis Few Morphology Comment Slide scanned INR PTT (Actin FS) Fibrinogen Sodium Potassium Chloride Carbon Dioxide Anion Gap BUN Creatinine Creat Clearance w eGFR POC Glucometer Random Glucose Calcium Phosphorus Magnesium Ferritin Total Bilirubin AST ALT Alkaline Phosphatase LD Total Total Protein Albumin Vitamin B12 Serum Folate Random Vancomycin Glomerular Base Memb Ab 2 Complement C3 107 Complement C4 39 Direct Antiglob Test 09/23/16 09/23/16 09/23/16 08:35 08:41 10:00 WBC RBC Hgb Hct MCV MCHC RDW Plt Count MPV Neutrophils % Lymphocytes % Monocytes % Eosinophils % Basophils % Basophilic Stippling Macrocytosis Morphology Comment INR PTT (Actin FS) Fibrinogen Sodium Potassium Chloride Carbon Dioxide Anion Gap BUN Creatinine Creat Clearance w eGFR POC Glucometer [phone] Random Glucose 267 H Calcium Phosphorus Magnesium Ferritin Total Bilirubin AST ALT Alkaline Phosphatase LD Total Total Protein Albumin Vitamin B12 Serum Folate Random Vancomycin Glomerular Base Memb Ab Complement C3 Complement C4 Direct Antiglob Test 09/23/16 09/23/16 09/23/16 10:39 14:23 15:35 WBC RBC Hgb Hct MCV MCHC RDW Plt Count MPV Neutrophils % Lymphocytes % Monocytes % Eosinophils % Basophils % Basophilic Stippling Macrocytosis Morphology Comment INR PTT (Actin FS) Fibrinogen Sodium Potassium Chloride Carbon Dioxide Anion Gap BUN Creatinine Creat Clearance w eGFR POC Glucometer [phone] > 400 Random Glucose Calcium Phosphorus Magnesium Ferritin Total Bilirubin AST ALT Alkaline Phosphatase LD Total Total Protein Albumin Vitamin B12 Serum Folate Random Vancomycin Glomerular Base Memb Ab Complement C3 Complement C4 Direct Antiglob Test Negative 09/23/16 09/23/16 09/23/16 15:35 15:35 17:15 WBC RBC Hgb Hct MCV MCHC RDW Plt Count MPV Neutrophils % Lymphocytes % Monocytes % Eosinophils % Basophils % Basophilic Stippling Macrocytosis Morphology Comment INR 0.99 PTT (Actin FS) 34.8 H Fibrinogen > 700.0 H Sodium Potassium Chloride Carbon Dioxide Anion Gap BUN Creatinine Creat Clearance w eGFR POC Glucometer Random Glucose Calcium Phosphorus Magnesium Ferritin 757.631 H Total Bilirubin AST ALT Alkaline Phosphatase LD Total 254 H D Total Protein Albumin Vitamin B12 Serum Folate Random Vancomycin Glomerular Base Memb Ab Complement C3 Complement C4 Direct Antiglob Test 09/23/16 09/23/16 09/23/16 17:15 18:28 21:11 WBC RBC Hgb Hct MCV MCHC RDW Plt Count MPV Neutrophils % Lymphocytes % Monocytes % Eosinophils % Basophils % Basophilic Stippling Macrocytosis Morphology Comment INR PTT (Actin FS) Fibrinogen Sodium Potassium Chloride Carbon Dioxide Anion Gap BUN Creatinine Creat Clearance w eGFR POC Glucometer [phone] Random Glucose Calcium Phosphorus Magnesium Ferritin Total Bilirubin AST ALT Alkaline Phosphatase LD Total Total Protein Albumin Vitamin B12 3164 H Serum Folate 8 Random Vancomycin Glomerular Base Memb Ab Complement C3 Complement C4 Direct Antiglob Test 09/24/16 09/24/16 09/24/16 05:45 05:45 06:00 WBC 5.6 RBC 2.92 L Hgb 9.0 L Hct 26.7 L MCV 91.4 MCHC 33.8 RDW 15.7 Plt Count 117 L MPV 10.1 Neutrophils % 68.3 Lymphocytes % 12.3 D Monocytes % 16.7 H Eosinophils % 2.5 D Basophils % 0.2 Basophilic Stippling Macrocytosis Morphology Comment INR 1.00 PTT (Actin FS) 35.5 H Fibrinogen Sodium 155 H Potassium 4.2 D Chloride 123 H Carbon Dioxide 23 Anion Gap 9 BUN 29 H Creatinine 2.5 H Creat Clearance w eGFR 31.89 POC Glucometer Random Glucose 231 H Calcium 7.4 L Phosphorus 3.2 Magnesium 2.1 Ferritin Total Bilirubin 0.5 AST 45 H D ALT 92 H D Alkaline Phosphatase 325 H LD Total Total Protein 4.8 L Albumin 1.5 L Vitamin B12 Serum Folate Random Vancomycin 14.734 Glomerular Base Memb Ab Complement C3 Complement C4 Direct Antiglob Test 09/24/16 06:21 WBC RBC Hgb Hct MCV MCHC RDW Plt Count MPV Neutrophils % Lymphocytes % Monocytes % Eosinophils % Basophils % Basophilic Stippling Macrocytosis Morphology Comment INR PTT (Actin FS) Fibrinogen Sodium Potassium Chloride Carbon Dioxide Anion Gap BUN Creatinine Creat Clearance w eGFR POC Glucometer [phone] Random Glucose Calcium Phosphorus Magnesium Ferritin Total Bilirubin AST ALT Alkaline Phosphatase LD Total Total Protein Albumin Vitamin B12 Serum Folate Random Vancomycin Glomerular Base Memb Ab Complement C3 Complement C4 Direct Antiglob Test Active Medications Generic Name Dose Route Start Last Admin Trade Name Freq PRN Reason Stop Dose Admin Albuterol/Ipratropium 1 amp 09/22/16 12:15 09/24/16 05:43 Duoneb - NEB 1 amp QIDR [facility] Administration Artificial Tears 1 applic 09/23/16 10:00 09/23/16 21:38 Lacri-Lube Eye Ointment - OU 1 applic BID [facility] Administration Chlorhexidine Gluconate 1 applic 09/18/16 22:00 09/23/16 21:14 Hibiclens For Decolonization - TP 1 applic HS [facility] Administration Heparin Sodium (Porcine) 5,000 unit 09/23/16 14:00 09/24/16 06:24 Heparin - SQ 5,000 unit TID [facility] Administration IV Flush 4 ml 09/18/16 20:31 09/23/16 13:30 Triple Lumen Flush IVPUSH 4 ml PRN PRN Administration Protocol Propofol 100 mls @ 2.722 mls/hr 09/18/16 15:00 09/24/16 00:25 Diprivan - IVPB 13.608 mls/hr TITR [facility] Administration Protocol 5 MCG/KG/MIN Famotidine/Sodium Chloride 50 mls @ 100 mls/hr 09/19/16 10:00 09/23/16 21:13 Pepcid 20 Mg Premixed Ivpb - IVPB 100 mls/hr BID [facility] Administration Fentanyl 500 mcg/ Dextrose 100 mls @ 10 mls/hr 09/19/16 01:30 09/24/16 01:59 IVPB 10 mls/hr TITR [facility] Administration 50 MCG/HR Midazolam HCl 100 mg/ Sodium 100 mls @ 1 mls/hr 09/19/16 09:30 09/24/16 06:56 Chloride IVPB 10 mls/hr TITR [facility] Administration Protocol 1 MG/HR Piperacillin Sod/Tazobactam Sod 50 mls @ 100 mls/hr 09/20/16 09:00 09/24/16 02: 02 Zosyn 3.375gm Ivpb (Pre-Docked) IVPB 100 mls/hr Q8H-IV [facility] Administration Protocol Insulin Aspart 1 vial 09/23/16 09:00 09/24/16 06:24 Novolog Vial Sliding Scale - SQ 10 units Q4HWA [facility] Administration Protocol Insulin Detemir 20 units 09/23/16 22:00 09/23/16 21:12 Levemir Vial SQ 20 units HS [facility] Administration Potassium Chloride 40 meq 09/23/16 10:00 09/23/16 21:13 Potassium Chloride Oral Liquid PO 40 meq BID [facility] Administration Thiamine HCl 200 mg 09/19/16 10:00 09/23/16 10:05 Vitamin B1 Injection - IVPB 200 mg DAILY [facility] Administration ASSESSMENT/PLAN: 25M found down with no PMH of DM presents to the ED unresponsive in DKA and sepsis shock. Leukocytosis resolved, tachy cardic, fever last night, on levophed, lactic acidosis trended down. will keep sedated for another night total of 6 days, to cover withdraw window. Diabetic ketoacidosis: resolved Gap closed, BS still 200's, increased ISS and Levemir dose. continue D5W with bicarg @ 60ml/hr D5w 20Kcl 75ml/hr BMP q4h HbA1C 12.9 methanol and ethylin glycol levels pending Septic Shock: leukocytosis resolved, tachycardic, fever last night, BP stable off of pressors, lactic acidosis trending down. Multiorgan failure keep CVP 8-12 if needed IVNS 500cc Bolus Off of pressors to maintain MAP >65 unknown source at this time, possible sinusitis source. on antibiotic. Sputum Cx growing MRSA. BCx, UCx, CSF cultures No growth, continue to follow. Low grade temps noted but on a cooling blanket Vancomycin added for MRSA positive Zosyn day 4 presumed aspiration Acute respiratory failure: 2/2 to metabolic DKA, PNA, sinusitis, intubated and sedated possible moderate ARDS: CXR patchy infiltrate, paO2/Fio2 ratio: 176.25 hold sedation to assess mental status, No shaken at this time. patient was on high dose versad and inlight of SEAN, still not responding to pain, tactile, vocal stimuli. Ventilatory support tolerated CPAP for 6 hours, sweitched back on AC Spontaneous breathing trials as tolerated when mental status improved and will keep sedated for anther couple of days to cover withdraw window. Pancrease normal on CT mixed metabolic and respiratory acidosis. restart bicarb gtt today Acute uncompensated primary acidosis with metabolic acidosis, with a normal anion GAP, expected PH=7.24, CO2 45, HCO3 20. on bicarb gtt ventilator Lactic acidosis:resolved 2/2 DKA and dehydration, hypovolemia trend lactic acid IVF toxic metabolic encephalopathy - Possible seizure activity when sedation is lightened, in light of history patient drinks 15 to 20 beers daily. possible withdrawals, currently off Versed to assess mental status. treated for 6 day with versed, should be out of the withdrawal window. Thrombocytopenia: less likely related to HIT Stop heparin sq HIT Ab negative Send serotonin release assay Hematology consult-Dr. Fernandez LDH elevated haptoglobin wnl restarted on Heparin DIC: (low fibrinogen <100, inc fibrin degradation products, skin necrosis) improving, currently fibrinogen Normalized is 700, platelets slightly improved. peripheral smear -Anisocytosis/poikilocytosis, occ. schistocytes--09/23 per oncology LDH--marginally elevated/haptoglobin nl--this is not c/w TTP/HUS per oncology Will check antiphospholipid panel per oncology HIT neg. VIRGIL neg./ SIFE neg.per oncology Coags WNL Anemia of chronic disease: could be secodndary to Dm and chronic kidney injury Thrombosis superficial bilateral cephalic veins- most likely secondary to DIC: no change in size and color. supportive care repeat duplex tomorrow to check for extension derm consult regarding necrotic area on fore arm Alcohol abuse/ withdrawal thiamine and folate completed 6 day of versad, currently off versed. Polysubstance Abuse: monitor for withdrawal supportive care Acute kidney injury: cr 2.7 worsening today. most likely 2/2 prerenal azotemia or ATN or primary acute on chronic kidney disease or toxin induced. IVF lasix today follow kidney function avoid nephrotoxic drugs C'3 and C'4, Antibodies work up VIRGIL DS DNA Myeloperoxidase Anca Etc pending HUS less likely, but given haptoglobin normal and no evidence of hemolysis it is unlikely called hematology lab to do a peripheral smear and will follow it up will recheck LDH as it was elevated but it could also be elevate due to other reasons such as sepsis f/u stool studies for E. COli O157 Transaminitis: questionable history of Liver disease, alcohol, drug, Tylenol use , possibly secondary to shock LFTs decreasing today, alk phos increased today. fatty liver on US: alcoholism vs obesity IVF CT Abdomen pelvis with po contrast can not give IV contrast as patient is in renal failure. GI consult appreciated-will follow up serum copper and ceruloplasmin levels to r /o wilsons disease pancreatitis less likely, no evidence on Ct, Lipase elevated on admission currently trended back down. currently on bowel rest IVF Hematuria:resolved, 2/2 traumatic arnold insertion Hypernatremia: patient initially has pseudohyponatremia from hyperglycemia as corrected sodium was normal now patient is hypernatremic D5W 75cc/hr increased free water through NGT inc free water through NGT 400ml/hr q6h per Dr. Patton Microcytic anemia: f/u Iron studies B12 Folate-elevated Asthma: duonebs intubated at this time FEN: D5W with Bicarb @ 60ml/hr free water increased today through NGT replete potassium for hypokalemia while on insulin gtt keep K+>4.0. hypernatremia see above for plan NPO - enteral feeds PPx: Heparin sq tid, heparin antibody negative Pepcid No PT consult at this time dispo: continue ICU monitoring Visit type - Emergency Visit Emergency Visit: Yes ED Registration Date: 09/18/16 Care time: The patient presented to the Emergency Department on the above date and was hospitalized for further evaluation of their emergent condition. - New Patient This patient is new to me today: No - Critical Care Critical Care patient: Yes Total Critical Care Time (in minutes): 53 Critical Care Statement: The care of this patient involved high complexity decision making to prevent further life threatening deterioration of the patient 's condition and/or to evalute & treat vital organ system(s) failure or risk of failure.
[2016-09-24 09:07] LABS: ARTERIAL BLOOD GAS PO2 70.5 mmHg (80-100)
[2016-09-24 09:08] LABS: ALLENS TEST POSITIVE; ART PUNCT SITE RIGHT RADIAL; LPM/O2% 40%; PT. ON O2? YES; TYPE OF O2 MECHANICAL VENT
[2016-09-24 09:09] LABS: ARTERIAL BLOOD GAS pH 7.34 (7.35-7.45); MECH. VENT. YES; VENT RATE 16; VT/PRESS 450ML
[2016-09-24] MEDS: POTASSIUM CHLORIDE ORAL LIQUID 20 MEQ/15 ML PO SCH ×2 (09:50→21:51)
[2016-09-24] MEDS: FAMOTIDINE 20 MG/50 ML IVPB 50 ML IVPB SCH ×2 (09:51→21:50)
[2016-09-24] MEDS: OCULAR LUBRICANT OPHTHALMIC OINTMENT 7 GM TUBE OU SCH ×2 (09:52→21:51)
[2016-09-24] MEDS: THIAMINE HCL 200 MG/2 ML VIAL IVPB SCH (09:52)
[2016-09-24] MEDS ORDERED: VANCOMYCIN 1,500 MG in DEXTROSE 5%-WATER - 500 ML IVPB ONE (10:00)
--- NOTE | 2016-09-24 13:14 | PN ---
Teaching Attending Note Name of Resident: Pilo Gonzales ATTENDING PHYSICIAN STATEMENT I saw and evaluated the patient. I reviewed the resident's note and discussed the case with the resident. I agree with the resident's findings and plan as documented. SUBJECTIVE: Pt seen and examined in the ICU. Remains intubated, sedated. Low grade temps. Diuresed well with lasix yesterday. OBJECTIVE: Last Vital Signs Temp Pulse Resp BP Pulse Ox 97.9 F 104 H 17 137/83 98 09/24/16 10:00 09/24/16 12:00 09/24/16 12:10 09/24/16 12:00 09/24/16 10:39 Intake & Output 09/21/16 09/22/16 09/23/16 09/24/16 23:59 23:59 23:59 23:59 Intake Total 2831.9 4030.4 3486 1779.6 Output Total 3400 3100 7700 1200 Balance -568.1 930.4 -4214 579.6 Weight 223 lb 9.6 oz 224 lb 6.889 oz 219 lb 2.232 oz 214 lb 15.211 oz Gen: intubated, sedated Heart: tachycardic, regular Lung: scattered rhonchi Abd: soft, nontender Ext: decreasing edema CBC, BMP 09/24/16 05:45 09/24/16 06:00 Active Medications Albuterol/Ipratropium (Duoneb -) 1 amp NEB QIDR [facility] Last Admin: 09/24/16 11:15 Dose: 1 amp Artificial Tears (Lacri-Lube Eye Ointment -) 1 applic OU BID [facility] Last Admin: 09/24/16 09:52 Dose: 1 applic Chlorhexidine Gluconate (Hibiclens For Decolonization -) 1 applic TP HS [facility] Last Admin: 09/23/16 21:14 Dose: 1 applic Heparin Sodium (Porcine) (Heparin -) 5,000 unit SQ TID [facility] Last Admin: 09/24/16 13:07 Dose: 5,000 unit IV Flush (Triple Lumen Flush) 4 ml IVPUSH PRN PRN PRN Reason: Protocol Last Admin: 09/23/16 13:30 Dose: 4 ml Propofol (Diprivan -) 100 mls @ 2.722 mls/hr IVPB TITR [facility]; 5 MCG/KG/MIN PRN Reason: Protocol Last Admin: 09/24/16 13:08 Dose: 13.608 mls/hr Famotidine/Sodium Chloride (Pepcid 20 Mg Premixed Ivpb -) 50 mls @ 100 mls/hr IVPB BID [facility] Last Admin: 09/24/16 09:51 Dose: 100 mls/hr Fentanyl 500 mcg/ Dextrose 100 mls @ 10 mls/hr IVPB TITR [facility] PRN Reason: 50 MCG/HR Last Admin: 09/24/16 01:59 Dose: 10 mls/hr Midazolam HCl 100 mg/ Sodium (Chloride) 100 mls @ 1 mls/hr IVPB TITR [facility]; 1 MG/ HR PRN Reason: Protocol Last Admin: 09/24/16 06:56 Dose: 10 mls/hr Piperacillin Sod/Tazobactam Sod (Zosyn 3.375gm Ivpb (Pre-Docked)) 50 mls @ 100 mls/hr IVPB Q8H-IV [facility] PRN Reason: Protocol Last Admin: 09/24/16 09:51 Dose: 100 mls/hr Insulin Aspart (Novolog Vial Sliding Scale -) 1 vial SQ Q4HWA [facility] PRN Reason: Protocol Last Admin: 09/24/16 13:08 Dose: 16 units Insulin Detemir (Levemir Vial) 20 units SQ HS [facility] Last Admin: 09/23/16 21:12 Dose: 20 units Potassium Chloride (Potassium Chloride Oral Liquid) 40 meq PO BID [facility] Last Admin: 09/24/16 09:50 Dose: 40 meq Thiamine HCl (Vitamin B1 Injection -) 200 mg IVPB DAILY [facility] Last Admin: 09/24/16 09:52 Dose: 200 mg ASSESSMENT AND PLAN: Acute Respiratory Failure Polysubstance Abuse Diabetic Ketoacidosis resolving Metabolic Acidosis r/o Septic Shock Acute Kidney Injury Lactic Acidosis resolved Elevated LFTs ?Alcohol Withdrawal Volume Overload - continue antibiotics per ID - dose lasix today - monitor urine output, creatinine - increase free water via GT - monitoring off pressors, maintain MAP >65 - replete lytes - hold sedation to assess mental status - spontaneous breathing trials as tolerated when mental status improved - enteral feeds - DVT/GI prophylaxis - continue ICU monitoring critical care time spent in reviewing chart, evaluating patient and formulating plan 36 min
--- NOTE | 2016-09-24 14:41 | PN ---
Progress Note, Physician History of Present Illness: Pt seen and examined at bedside. He remains in the ICU intubated. - Current Medication List Current Medications: Active Medications Albuterol/Ipratropium (Duoneb -) 1 amp NEB QIDR [facility] Last Admin: 09/24/16 11:15 Dose: 1 amp Artificial Tears (Lacri-Lube Eye Ointment -) 1 applic OU BID [facility] Last Admin: 09/24/16 09:52 Dose: 1 applic Chlorhexidine Gluconate (Hibiclens For Decolonization -) 1 applic TP HS [facility] Last Admin: 09/23/16 21:14 Dose: 1 applic Heparin Sodium (Porcine) (Heparin -) 5,000 unit SQ TID [facility] Last Admin: 09/24/16 13:07 Dose: 5,000 unit IV Flush (Triple Lumen Flush) 4 ml IVPUSH PRN PRN PRN Reason: Protocol Last Admin: 09/23/16 13:30 Dose: 4 ml Propofol (Diprivan -) 100 mls @ 2.722 mls/hr IVPB TITR [facility]; 5 MCG/KG/MIN PRN Reason: Protocol Last Admin: 09/24/16 13:08 Dose: 13.608 mls/hr Famotidine/Sodium Chloride (Pepcid 20 Mg Premixed Ivpb -) 50 mls @ 100 mls/hr IVPB BID [facility] Last Admin: 09/24/16 09:51 Dose: 100 mls/hr Fentanyl 500 mcg/ Dextrose 100 mls @ 10 mls/hr IVPB TITR [facility] PRN Reason: 50 MCG/HR Last Admin: 09/24/16 01:59 Dose: 10 mls/hr Midazolam HCl 100 mg/ Sodium (Chloride) 100 mls @ 1 mls/hr IVPB TITR [facility]; 1 MG/ HR PRN Reason: Protocol Last Admin: 09/24/16 06:56 Dose: 10 mls/hr Piperacillin Sod/Tazobactam Sod (Zosyn 3.375gm Ivpb (Pre-Docked)) 50 mls @ 100 mls/hr IVPB Q8H-IV [facility] PRN Reason: Protocol Last Admin: 09/24/16 09:51 Dose: 100 mls/hr Insulin Aspart (Novolog Vial Sliding Scale -) 1 vial SQ Q4HWA [facility] PRN Reason: Protocol Last Admin: 09/24/16 13:08 Dose: 16 units Insulin Detemir (Levemir Vial) 20 units SQ HS [facility] Last Admin: 09/23/16 21:12 Dose: 20 units Potassium Chloride (Potassium Chloride Oral Liquid) 40 meq PO BID [facility] Last Admin: 09/24/16 09:50 Dose: 40 meq Thiamine HCl (Vitamin B1 Injection -) 200 mg IVPB DAILY [facility] Last Admin: 09/24/16 09:52 Dose: 200 mg - Objective Vital Signs: Vital Signs Temperature 97.9 F 09/24/16 10:00 Pulse Rate 104 H 09/24/16 12:00 Respiratory Rate 14 09/24/16 13:50 Blood Pressure 137/83 09/24/16 12:00 O2 Sat by Pulse Oximetry (%) 98 09/24/16 10:39 Constitutional: Yes: Calm Eyes: Yes: Conjunctiva Clear Cardiovascular: Yes: S1, S2 Respiratory: Yes: Mechanically Ventilated Gastrointestinal: Yes: Soft, Abdomen, Obese Genitourinary: Yes: Kelly Present Musculoskeletal: Yes: Muscle Weakness Edema: Yes Edema: LUE: Trace, RUE: Trace, LLE: 1+, RLE: 1+ Neurological: Yes: Other (sedated) Labs: CBC, BMP 09/24/16 05:45 09/24/16 06:00 INR, PTT INR 1.00 (0.82-1.09) 09/24/16 05:45 Fibrinogen > 700.0 mg/dL (238-498) H 09/23/16 15:35 - ....Imaging Chest X-ray: Report Reviewed Problem List - Problems (1) Acute renal insufficiency Code(s): N28.9 - DISORDER OF KIDNEY AND URETER, UNSPECIFIED (2) Altered mental status Code(s): R41.82 - ALTERED MENTAL STATUS, UNSPECIFIED Qualifiers: Altered mental status type: stupor Qualified Code(s): R40.1 - Stupor (3) Lactic acidosis Code(s): E87.2 - ACIDOSIS (4) Leukocytosis Code(s): D72.829 - ELEVATED WHITE BLOOD CELL COUNT, UNSPECIFIED (5) Respiratory failure Code(s): J96.90 - RESPIRATORY FAILURE, UNSP, UNSP W HYPOXIA OR HYPERCAPNIA Assessment/Plan Current Medications Generic Name Dose Route Start Last Admin Trade Name Freq PRN Reason Stop Dose Admin Albuterol/Ipratropium 1 amp 09/22/16 12:15 09/24/16 11:15 Duoneb - NEB 1 amp QIDR [facility] Administration Artificial Tears 1 applic 09/23/16 10:00 09/24/16 09:52 Lacri-Lube Eye Ointment - OU 1 applic BID [facility] Administration Chlorhexidine Gluconate 1 applic 09/18/16 22:00 09/23/16 21:14 Hibiclens For Decolonization - TP 1 applic HS [facility] Administration Heparin Sodium (Porcine) 5,000 unit 09/23/16 14:00 09/24/16 13:07 Heparin - SQ 5,000 unit TID [facility] Administration IV Flush 4 ml 09/18/16 20:31 09/23/16 13:30 Triple Lumen Flush IVPUSH 4 ml PRN PRN Administration Protocol Propofol 100 mls @ 2.722 mls/hr 09/18/16 15:00 09/24/16 13:08 Diprivan - IVPB 13.608 mls/hr TITR [facility] Administration Protocol 5 MCG/KG/MIN Famotidine/Sodium Chloride 50 mls @ 100 mls/hr 09/19/16 10:00 09/24/16 09:51 Pepcid 20 Mg Premixed Ivpb - IVPB 100 mls/hr BID [facility] Administration Fentanyl 500 mcg/ Dextrose 100 mls @ 10 mls/hr 09/19/16 01:30 09/24/16 01:59 IVPB 10 mls/hr TITR [facility] Administration 50 MCG/HR Midazolam HCl 100 mg/ Sodium 100 mls @ 1 mls/hr 09/19/16 09:30 09/24/16 06:56 Chloride IVPB 10 mls/hr TITR [facility] Administration Protocol 1 MG/HR Piperacillin Sod/Tazobactam Sod 50 mls @ 100 mls/hr 09/20/16 09:00 09/24/16 09: 51 Zosyn 3.375gm Ivpb (Pre-Docked) IVPB 100 mls/hr Q8H-IV [facility] Administration Protocol Insulin Aspart 1 vial 09/23/16 09:00 09/24/16 13:08 Novolog Vial Sliding Scale - SQ 16 units Q4HWA [facility] Administration Protocol Insulin Detemir 20 units 09/23/16 22:00 09/23/16 21:12 Levemir Vial SQ 20 units HS [facility] Administration Potassium Chloride 40 meq 09/23/16 10:00 09/24/16 09:50 Potassium Chloride Oral Liquid PO 40 meq BID [facility] Administration Thiamine HCl 200 mg 09/19/16 10:00 09/24/16 09:52 Vitamin B1 Injection - IVPB 200 mg DAILY [facility] Administration Laboratory Tests 09/19/16 09/21/16 09/22/16 19:30 11:00 14:20 VIRGIL Screen Negative c-ANCA <1:20 Proteinase 3 (PR3) <3.5 p-ANCA <1:20 Atypical p-ANCA <1:20 Myeloperoxidase Ab <9.0 Double Strand DNA Ab <1 Glomerular Base Memb Ab 2 Hep-Induced Plt Ab Rapid 0.179 Complement C3 107 Complement C4 39 Impression 1. SEAN 2. metabolic acidosis 3. gross hematuria 4. DKA 5. sepsis 6. lactic acidosis 7. acute respiratory failure requiring intubation 8. etoh abuse - active 9. 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
--- NOTE | 2016-09-24 14:42 | PN ---
Progress Note (short form) - Note Progress Note: Events noted chart reviewed Still Intubated, Febrile Blood sugar 200s On tube feeding Vital Signs Period Temp Pulse Resp BP Sys/Gould Pulse Ox Last 24 Hr 97.9 F-99.8 F 94-109 12-20 117-137/66-83 97-100 PE: Intubated, sedated Neck: Supple, No JVd Lungs: CTA CVS: S1S2 Abd: benign Ext: No edema Neuro: intubated, sedated CMP Sodium 155 mmol/L (136-145) H 09/24/16 06:00 Potassium 4.2 mmol/L (3.5-5.1) D 09/24/16 06:00 Chloride 123 mmol/L (98-107) H 09/24/16 06:00 Carbon Dioxide 23 mmol/L (21-32) 09/24/16 06:00 Anion Gap 9 (8-16) 09/24/16 06:00 BUN 29 mg/dL (7-18) H 09/24/16 06:00 Creatinine 2.5 mg/dL (0.7-1.3) H 09/24/16 06:00 Creat Clearance w eGFR 31.89 (>60) 09/24/16 06:00 POC Glucometer [id number] UNITS (()) 09/24/16 13:05 Random Glucose 231 mg/dL (74-106) H 09/24/16 06:00 Hemoglobin A1c % 12.9 % (4.8-6.0) H 09/19/16 06:05 Serum Osmolality 350 mosm/kg (278-305) H 09/18/16 23:30 Lactic Acid 0.535 mmol/L (0.4-2.0) 09/21/16 11:00 Calcium 7.4 mg/dL (8.5-10.1) L 09/24/16 06:00 Phosphorus 3.2 mg/dL (2.5-4.9) 09/24/16 06:00 Magnesium 2.1 mg/dL (1.8-2.4) 09/24/16 06:00 Ferritin 757.631 ng/ml (16.4-293.9) H 09/23/16 17:15 Total Bilirubin 0.5 mg/dL (0.2-1.0) 09/24/16 06:00 Direct Bilirubin 0.2 mg/dL (0.0-0.2) D 09/19/16 03:20 AST 45 U/L (15-37) H D 09/24/16 06:00 ALT 92 U/L (12-78) H D 09/24/16 06:00 Alkaline Phosphatase 325 U/L (45-117) H 09/24/16 06:00 LD Total 254 U/L (87-241) H D 09/23/16 15:35 Creatine Kinase 72 IU/L (39-308) 09/18/16 23:30 Troponin I 0.04 ng/ml (0.00-0.05) D 09/18/16 23:30 Prot Electrophoresis (.) 09/19/16 19:30 Serum Total Protein 4.1 g/dL (6.0-8.5) L 09/19/16 19:30 Total Protein 4.8 g/dl (6.4-8.2) L 09/24/16 06:00 Albumin 1.5 g/dl (3.4-5.0) L 09/24/16 06:00 Globulin 1.9 g/dL (2.2-3.9) L 09/19/16 19:30 Albumin/Globulin Ratio 1.2 (0.7-1.7) 09/19/16 19:30 Xfsca-9-Ypikjdujj 0.2 gm/dL (0.0-0.4) 09/19/16 19:30 Pfslo-1-Uvcjsfrgp 0.7 gm/dL (0.4-1.0) 09/19/16 19:30 Beta Globulins 0.5 gm/dL (0.7-1.3) L 09/19/16 19:30 Gamma Globulins 0.5 gm/dL (0.4-1.8) 09/19/16 19:30 Total Amylase 98 U/L (25-115) D 09/20/16 05:40 Lipase 262 U/L (73-393) 09/20/16 05:40 Vitamin B12 3164 pg/ml (180-914) H 09/23/16 17:15 Serum Folate 8 ng/ml (3.1-17.5) 09/23/16 17:15 TSH 0.37 uIU/ml (0.358-3.74) 09/18/16 20:25 Current Medications Generic Name Dose Route Start Last Admin Trade Name Freq PRN Reason Stop Dose Admin Albuterol/Ipratropium 1 amp 09/22/16 12:15 09/24/16 11:15 Duoneb - NEB 1 amp QIDR [facility] Administration Artificial Tears 1 applic 09/23/16 10:00 09/24/16 09:52 Lacri-Lube Eye Ointment - OU 1 applic BID [facility] Administration Chlorhexidine Gluconate 1 applic 09/18/16 22:00 09/23/16 21:14 Hibiclens For Decolonization - TP 1 applic HS [facility] Administration Heparin Sodium (Porcine) 5,000 unit 09/23/16 14:00 09/24/16 13:07 Heparin - SQ 5,000 unit TID [facility] Administration IV Flush 4 ml 09/18/16 20:31 09/23/16 13:30 Triple Lumen Flush IVPUSH 4 ml PRN PRN Administration Protocol Propofol 100 mls @ 2.722 mls/hr 09/18/16 15:00 09/24/16 13:08 Diprivan - IVPB 13.608 mls/hr TITR [facility] Administration Protocol 5 MCG/KG/MIN Famotidine/Sodium Chloride 50 mls @ 100 mls/hr 09/19/16 10:00 09/24/16 09:51 Pepcid 20 Mg Premixed Ivpb - IVPB 100 mls/hr BID [facility] Administration Fentanyl 500 mcg/ Dextrose 100 mls @ 10 mls/hr 09/19/16 01:30 09/24/16 01:59 IVPB 10 mls/hr TITR [facility] Administration 50 MCG/HR Midazolam HCl 100 mg/ Sodium 100 mls @ 1 mls/hr 09/19/16 09:30 09/24/16 06:56 Chloride IVPB 10 mls/hr TITR [facility] Administration Protocol 1 MG/HR Piperacillin Sod/Tazobactam Sod 50 mls @ 100 mls/hr 09/20/16 09:00 09/24/16 09: 51 Zosyn 3.375gm Ivpb (Pre-Docked) IVPB 100 mls/hr Q8H-IV [facility] Administration Protocol Insulin Aspart 1 vial 09/23/16 09:00 09/24/16 13:08 Novolog Vial Sliding Scale - SQ 16 units Q4HWA [facility] Administration Protocol Insulin Detemir 20 units 09/23/16 22:00 09/23/16 21:12 Levemir Vial SQ 20 units HS [facility] Administration Potassium Chloride 40 meq 09/23/16 10:00 09/24/16 09:50 Potassium Chloride Oral Liquid PO 40 meq BID [facility] Administration Thiamine HCl 200 mg 09/19/16 10:00 09/24/16 09:52 Vitamin B1 Injection - IVPB 200 mg DAILY [facility] Administration AP: DKA: resolved, A gap normalized Blood sugar 200s Respiratory failure ? Pancreatitis: GI consult noted, Pancreas normal on CT abd Sepsis Lactic Acidosis SEAN Hypokalemia Improving acidosis Levemir 25 units stat and daily BGM Q 4Hr Increase Novolog coverage 4 units to be given Q 4hrs Start D10 at whatever the rate the feeding was on whenever tube feeding is discontinued Electrolyte replacement as necessary IV abx
--- NOTE | 2016-09-24 14:45 | PN ---
Progress Note (short form) - Note Progress Note: Neurology The patient is a 25 year old male, with a significant past medical history of asthma, who presented to the emergency department several days ago for altered mental status. Reportedly, the patient recently returned from [place] and stated he was not feeling well, but could not localize his symptoms. The patient has a history of cocaine use. Spoke to resident and the patient has had elevated liver enzymes, also with DKA, has been having fevers, underwent spinal tap with RBC of 70,000 and 30,000 with elevated WBC and elevated glucose and protein. Completed head CT and without acute changes. MRI would difficult as he is intubated on mechanical ventilation though he is overbreathing the vent. Without sedation today but no significant changes. Still not responding to voice or command, slight response to pain. Remains intubated and ventilated. Active Medications Albuterol/Ipratropium (Duoneb -) 1 amp NEB QIDR [facility] Last Admin: 09/24/16 11:15 Dose: 1 amp Artificial Tears (Lacri-Lube Eye Ointment -) 1 applic OU BID [facility] Last Admin: 09/24/16 09:52 Dose: 1 applic Chlorhexidine Gluconate (Hibiclens For Decolonization -) 1 applic TP HS [facility] Last Admin: 09/23/16 21:14 Dose: 1 applic Heparin Sodium (Porcine) (Heparin -) 5,000 unit SQ TID [facility] Last Admin: 09/24/16 13:07 Dose: 5,000 unit IV Flush (Triple Lumen Flush) 4 ml IVPUSH PRN PRN PRN Reason: Protocol Last Admin: 09/23/16 13:30 Dose: 4 ml Propofol (Diprivan -) 100 mls @ 2.722 mls/hr IVPB TITR [facility]; 5 MCG/KG/MIN PRN Reason: Protocol Last Admin: 09/24/16 13:08 Dose: 13.608 mls/hr Famotidine/Sodium Chloride (Pepcid 20 Mg Premixed Ivpb -) 50 mls @ 100 mls/hr IVPB BID [facility] Last Admin: 09/24/16 09:51 Dose: 100 mls/hr Fentanyl 500 mcg/ Dextrose 100 mls @ 10 mls/hr IVPB TITR [facility] PRN Reason: 50 MCG/HR Last Admin: 09/24/16 01:59 Dose: 10 mls/hr Midazolam HCl 100 mg/ Sodium (Chloride) 100 mls @ 1 mls/hr IVPB TITR [facility]; 1 MG/ HR PRN Reason: Protocol Last Admin: 09/24/16 06:56 Dose: 10 mls/hr Piperacillin Sod/Tazobactam Sod (Zosyn 3.375gm Ivpb (Pre-Docked)) 50 mls @ 100 mls/hr IVPB Q8H-IV [facility] PRN Reason: Protocol Last Admin: 09/24/16 09:51 Dose: 100 mls/hr Insulin Aspart (Novolog Vial Sliding Scale -) 1 vial SQ Q4HWA [facility] PRN Reason: Protocol Last Admin: 09/24/16 13:08 Dose: 16 units Insulin Detemir (Levemir Vial) 20 units SQ HS [facility] Last Admin: 09/23/16 21:12 Dose: 20 units Potassium Chloride (Potassium Chloride Oral Liquid) 40 meq PO BID [facility] Last Admin: 09/24/16 09:50 Dose: 40 meq Thiamine HCl (Vitamin B1 Injection -) 200 mg IVPB DAILY [facility] Last Admin: 09/24/16 09:52 Dose: 200 mg *Physical Exam Vital Signs Temperature 97.9 F 09/24/16 10:00 Pulse Rate 104 H 09/24/16 12:00 Respiratory Rate 14 09/24/16 13:50 Blood Pressure 137/83 09/24/16 12:00 O2 Sat by Pulse Oximetry (%) 98 09/24/16 10:39 GENERAL: Difficult to arouse even with painful stimuli HEAD: No signs of trauma EYES: Pupils small but reactive, EOMI, sclera anicteric, conjunctiva clear ENT: Auricles normal inspection, hearing grossly normal, nares patent, oropharynx clear without exudates. Moist mucosa NECK: Normal ROM, supple, no lymphadenopathy, JVD, or masses LUNGS: Respiration is kuz-mal. No wheezes, and no crackles HEART: Regular rate and rhythm, normal S1 and S2, no murmurs, rubs or gallops ABDOMEN: Tender and slightly firm. Normoactive bowel sounds. No guarding, no rebound. No masses EXTREMITIES: Normal range of motion, no edema. No clubbing or cyanosis. No cords, erythema, or tenderness NEUROLOGICAL: Responds to painful nail bed pressure, not verbal, overbreathing vent. CBCD WBC 5.6 K/mm3 (4.0-10.0) 09/24/16 05:45 RBC 2.92 M/mm3 (4.00-5.60) L 09/24/16 05:45 Hgb 9.0 GM/dL (11.7-16.9) L 09/24/16 05:45 Hct 26.7 % (35.4-49) L 09/24/16 05:45 MCV 91.4 fl (80-96) 09/24/16 05:45 MCHC 33.8 g/dl (32.0-35.9) 09/24/16 05:45 RDW 15.7 % (11.9-15.9) 09/24/16 05:45 Plt Count 117 K/MM3 (134-434) L 09/24/16 05:45 MPV 10.1 fl (7.5-11.1) 09/24/16 05:45 CMP Sodium 155 mmol/L (136-145) H 09/24/16 06:00 Potassium 4.2 mmol/L (3.5-5.1) D 09/24/16 06:00 Chloride 123 mmol/L (98-107) H 09/24/16 06:00 Carbon Dioxide 23 mmol/L (21-32) 09/24/16 06:00 Anion Gap 9 (8-16) 09/24/16 06:00 BUN 29 mg/dL (7-18) H 09/24/16 06:00 Creatinine 2.5 mg/dL (0.7-1.3) H 09/24/16 06:00 Creat Clearance w eGFR 31.89 (>60) 09/24/16 06:00 Calcium 7.4 mg/dL (8.5-10.1) L 09/24/16 06:00 Total Bilirubin 0.5 mg/dL (0.2-1.0) 09/24/16 06:00 AST 45 U/L (15-37) H D 09/24/16 06:00 ALT 92 U/L (12-78) H D 09/24/16 06:00 Alkaline Phosphatase 325 U/L (45-117) H 09/24/16 06:00 Total Protein 4.8 g/dl (6.4-8.2) L 09/24/16 06:00 Albumin 1.5 g/dl (3.4-5.0) L 09/24/16 06:00 Medical Decision Making 25 year old male, with a significant past medical history of asthma, who presented to the emergency department several days ago for altered mental status. Reportedly, the patient recently returned from [place] and stated he was not feeling well, but could not localize his symptoms. The patient has a history of cocaine use. Spoke to resident and the patient has had elevated liver enzymes, also with DKA, has been having fevers, underwent spinal tap with RBC of 70,000 and 30,000 with elevated WBC and elevated glucose and protein. Has not had any imaging of head and MRI would difficult as he is intubated on mechanical ventilation though he is overbreathing the vent. CT head stable. No signficant improvement neurologically since sedation tapered this AM. Continue aggresive medical mgmt. Monitor off sedation, wean if able.
--- NOTE | 2016-09-24 16:32 | PN ---
Physical Exam: SUBJECTIVE: Patient seen and examined at bedside on CPAP sedation held OBJECTIVE: Vital Signs Period Temp Pulse Resp BP Sys/Gould Pulse Ox Last 24 Hr 97.9 F-99.4 F 94-104 12-20 117-137/72-83 97-100 GENERAL: Intubated sedated. HEAD: Normal with no signs of trauma. EYES: Pupils equal, round and reactive to light, Sclera anicteric, Conjunctiva clear EARS, NOSE, THROAT:Moist mucous membranes. NECK: No JVD. Central line in place no surrounding erythema LUNGS: . Bronchial breath sounds coarse breath sounds bilaterally. Intubated. HEART: RRR S1 S2 no murmurs rubs or gallops ABDOMEN: Soft, nontender, not distended UPPER EXTREMITIES: warm, well-perfused. 1+ pitting edema. on the right forearm there are 2 area of what appears to be necrosis with surrounding erythema LOWER EXTREMITIES: warm, well-perfused. Trace non pitting edema : arnold in place Laboratory Results - last 24 hr 09/18/16 09/22/16 09/23/16 22:00 14:20 14:23 WBC RBC Hgb Hct MCV MCHC RDW Plt Count MPV Neutrophils % Lymphocytes % Monocytes % Eosinophils % Basophils % INR PTT (Actin FS) Fibrinogen Puncture Site ABG pH ABG pCO2 at Pt Temp ABG pO2 at Pt Temp ABG HCO3 ABG O2 Sat (Measured) ABG O2 Content ABG Base Excess Dennis Test O2 Delivery Device Oxygen Flow Rate Vent Mode Vent Rate Mechanical Rate PEEP Pressure Support Vent Sodium Potassium Chloride Carbon Dioxide Anion Gap BUN Creatinine Creat Clearance w eGFR POC Glucometer > 400 Random Glucose Calcium Phosphorus Magnesium Ferritin Total Bilirubin AST ALT Alkaline Phosphatase LD Total Total Protein Albumin Vitamin B12 Serum Folate Urine Creatinine CSF Herpes II IgG Ab No Result Required. Random Vancomycin Urine Copper Ur Copper 24 Hr Ur Copper/Creat Ratio Complement C3 107 Complement C4 39 Direct Antiglob Test 09/23/16 09/23/16 09/23/16 15:35 15:35 15:35 WBC RBC Hgb Hct MCV MCHC RDW Plt Count MPV Neutrophils % Lymphocytes % Monocytes % Eosinophils % Basophils % INR 0.99 PTT (Actin FS) 34.8 H Fibrinogen > 700.0 H Puncture Site ABG pH ABG pCO2 at Pt Temp ABG pO2 at Pt Temp ABG HCO3 ABG O2 Sat (Measured) ABG O2 Content ABG Base Excess Dennis Test O2 Delivery Device Oxygen Flow Rate Vent Mode Vent Rate Mechanical Rate PEEP Pressure Support Vent Sodium Potassium Chloride Carbon Dioxide Anion Gap BUN Creatinine Creat Clearance w eGFR POC Glucometer Random Glucose Calcium Phosphorus Magnesium Ferritin Total Bilirubin AST ALT Alkaline Phosphatase LD Total 254 H D Total Protein Albumin Vitamin B12 Serum Folate Urine Creatinine CSF Herpes II IgG Ab Random Vancomycin Urine Copper Ur Copper 24 Hr Ur Copper/Creat Ratio Complement C3 Complement C4 Direct Antiglob Test Negative 09/23/16 09/23/16 09/23/16 17:15 17:15 18:28 WBC RBC Hgb Hct MCV MCHC RDW Plt Count MPV Neutrophils % Lymphocytes % Monocytes % Eosinophils % Basophils % INR PTT (Actin FS) Fibrinogen Puncture Site ABG pH ABG pCO2 at Pt Temp ABG pO2 at Pt Temp ABG HCO3 ABG O2 Sat (Measured) ABG O2 Content ABG Base Excess Dennis Test O2 Delivery Device Oxygen Flow Rate Vent Mode Vent Rate Mechanical Rate PEEP Pressure Support Vent Sodium Potassium Chloride Carbon Dioxide Anion Gap BUN Creatinine Creat Clearance w eGFR POC Glucometer [phone] Random Glucose Calcium Phosphorus Magnesium Ferritin 757.631 H Total Bilirubin AST ALT Alkaline Phosphatase LD Total Total Protein Albumin Vitamin B12 3164 H Serum Folate 8 Urine Creatinine CSF Herpes II IgG Ab Random Vancomycin Urine Copper Ur Copper 24 Hr Ur Copper/Creat Ratio Complement C3 Complement C4 Direct Antiglob Test 09/23/16 09/24/16 09/24/16 21:11 05:45 05:45 WBC 5.6 RBC 2.92 L Hgb 9.0 L Hct 26.7 L MCV 91.4 MCHC 33.8 RDW 15.7 Plt Count 117 L MPV 10.1 Neutrophils % 68.3 Lymphocytes % 12.3 D Monocytes % 16.7 H Eosinophils % 2.5 D Basophils % 0.2 INR PTT (Actin FS) Fibrinogen Puncture Site ABG pH ABG pCO2 at Pt Temp ABG pO2 at Pt Temp ABG HCO3 ABG O2 Sat (Measured) ABG O2 Content ABG Base Excess Dennis Test O2 Delivery Device Oxygen Flow Rate Vent Mode Vent Rate Mechanical Rate PEEP Pressure Support Vent Sodium Potassium Chloride Carbon Dioxide Anion Gap BUN Creatinine Creat Clearance w eGFR POC Glucometer [phone] Random Glucose Calcium Phosphorus Magnesium Ferritin Total Bilirubin AST ALT Alkaline Phosphatase LD Total Total Protein Albumin Vitamin B12 Serum Folate Urine Creatinine Cancelled CSF Herpes II IgG Ab Random Vancomycin Urine Copper Cancelled Ur Copper 24 Hr Cancelled Ur Copper/Creat Ratio Cancelled Complement C3 Complement C4 Direct Antiglob Test 09/24/16 09/24/16 09/24/16 05:45 06:00 06:21 WBC RBC Hgb Hct MCV MCHC RDW Plt Count MPV Neutrophils % Lymphocytes % Monocytes % Eosinophils % Basophils % INR 1.00 PTT (Actin FS) 35.5 H Fibrinogen Puncture Site ABG pH ABG pCO2 at Pt Temp ABG pO2 at Pt Temp ABG HCO3 ABG O2 Sat (Measured) ABG O2 Content ABG Base Excess Dennis Test O2 Delivery Device Oxygen Flow Rate Vent Mode Vent Rate Mechanical Rate PEEP Pressure Support Vent Sodium 155 H Potassium 4.2 D Chloride 123 H Carbon Dioxide 23 Anion Gap 9 BUN 29 H Creatinine 2.5 H Creat Clearance w eGFR 31.89 POC Glucometer 238.31995 Random Glucose 231 H Calcium 7.4 L Phosphorus 3.2 Magnesium 2.1 Ferritin Total Bilirubin 0.5 AST 45 H D ALT 92 H D Alkaline Phosphatase 325 H LD Total Total Protein 4.8 L Albumin 1.5 L Vitamin B12 Serum Folate Urine Creatinine CSF Herpes II IgG Ab Random Vancomycin 14.734 Urine Copper Ur Copper 24 Hr Ur Copper/Creat Ratio Complement C3 Complement C4 Direct Antiglob Test 09/24/16 09/24/16 09/24/16 08:40 09:55 13:05 WBC RBC Hgb Hct MCV MCHC RDW Plt Count MPV Neutrophils % Lymphocytes % Monocytes % Eosinophils % Basophils % INR PTT (Actin FS) Fibrinogen Puncture Site Right radial ABG pH 7.34 L ABG pCO2 at Pt Temp 43.3 ABG pO2 at Pt Temp 70.5 L D ABG HCO3 23.0 ABG O2 Sat (Measured) 95.0 ABG O2 Content 11.9 L ABG Base Excess -2.0 Dennis Test Positive O2 Delivery Device Mechanical vent Oxygen Flow Rate 40% Vent Mode A/c Vent Rate 16 Mechanical Rate Yes PEEP 5.0 Pressure Support Vent 450ml Sodium Potassium Chloride Carbon Dioxide Anion Gap BUN Creatinine Creat Clearance w eGFR POC Glucometer [phone] Random Glucose Calcium Phosphorus Magnesium Ferritin Total Bilirubin AST ALT Alkaline Phosphatase LD Total Total Protein Albumin Vitamin B12 Serum Folate Urine Creatinine CSF Herpes II IgG Ab Random Vancomycin Urine Copper Ur Copper 24 Hr Ur Copper/Creat Ratio Complement C3 Complement C4 Direct Antiglob Test Active Medications Generic Name Dose Route Start Last Admin Trade Name Freq PRN Reason Stop Dose Admin Albuterol/Ipratropium 1 amp 09/22/16 12:15 09/24/16 11:15 Duoneb - NEB 1 amp QIDR SILVER Administration Artificial Tears 1 applic 09/23/16 10:00 09/24/16 09:52 Lacri-Lube Eye Ointment - OU 1 applic BID SILVER Administration Chlorhexidine Gluconate 1 applic 09/18/16 22:00 09/23/16 21:14 Hibiclens For Decolonization - TP 1 applic HS SILVER Administration Docusate Sodium 100 mg 09/24/16 22:00 Colace - PO 09/25/16 14:01 TID SILVER Heparin Sodium (Porcine) 5,000 unit 09/23/16 14:00 09/24/16 13:07 Heparin - SQ 5,000 unit TID SILVER Administration IV Flush 4 ml 09/18/16 20:31 09/23/16 13:30 Triple Lumen Flush IVPUSH 4 ml PRN PRN Administration Protocol Propofol 100 mls @ 2.722 mls/hr 09/18/16 15:00 09/24/16 13:08 Diprivan - IVPB 13.608 mls/hr TITR SILVER Administration Protocol 5 MCG/KG/MIN Famotidine/Sodium Chloride 50 mls @ 100 mls/hr 09/19/16 10:00 09/24/16 09:51 Pepcid 20 Mg Premixed Ivpb - IVPB 100 mls/hr BID SILVER Administration Fentanyl 500 mcg/ Dextrose 100 mls @ 10 mls/hr 09/19/16 01:30 09/24/16 01:59 IVPB 10 mls/hr TITR SILVER Administration 50 MCG/HR Midazolam HCl 100 mg/ Sodium 100 mls @ 1 mls/hr 09/19/16 09:30 09/24/16 06:56 Chloride IVPB 10 mls/hr TITR SILVER Administration Protocol 1 MG/HR Piperacillin Sod/Tazobactam Sod 50 mls @ 100 mls/hr 09/20/16 09:00 09/24/16 09: 51 Zosyn 3.375gm Ivpb (Pre-Docked) IVPB 100 mls/hr Q8H-IV SILVER Administration Protocol Insulin Aspart 1 vial 09/24/16 18:00 Novolog Vial Sliding Scale - SQ Q4HWA [facility] Protocol Insulin Detemir 25 units 09/24/16 22:00 Levemir Vial SQ HS SILVER Potassium Chloride 40 meq 09/23/16 10:00 09/24/16 09:50 Potassium Chloride Oral Liquid PO 40 meq BID SILVER Administration Thiamine HCl 200 mg 09/19/16 10:00 09/24/16 09:52 Vitamin B1 Injection - IVPB 200 mg DAILY SILVER Administration ASSESSMENT/PLAN: 25M found down with no PMH of DM presents to the ED unresponsive in DKA and severe sepsis. Diabetic ketoacidosis: patient has likely been a diabetic for a long time and has been undiagnosed and this is his initial presentation of DKA from untreated type 1 DM bicarb gtt stopped AG closed BGM better controlled today insulin gtt stoped on on sliding scale q4h with levemir 20 units HS stop IVF Endocrinology consult appreciated recommendations noted replete potassium aggressively PRN will need outpatient follow up with ophthalmology and podiatry HbA1C 12.9 Septic shock: tachycardic hypothermic on presentation now febrile leukocytosis on presentation now resolved with acute kidney injury lactic acidosis. requiring pressors which he no longer requires. Sputum Cx growing MRSA URI infection per family prior to presentation Pressors stopped remains febrile despite cooling blanket fever curve improcving Sputum Cx-prelim yeast like organisms MRSA Will give another one dose of vancomycin 1.5gm and check level in AM. DOse by level given renal failure BCx no growth so far UCx-no growth final continue Zosyn CSF cultures negative patient is having multi-organ failure Acute respiratory failure: from DKA sepsis/MRSA PNA CXR shows patchy infiltrates Respiratory status improved-sedation held still did not wake up lasted on CPAP for 5 hours intubated ventilatory support ABG improved from admission continue ABx Possible seizure activity when sedation is held possible withdrawals from alcohol neurology consult appreciated sedation held to evaluate mental status-no shaking this time but not responding to painful stimulus was on high dose sedation fentanyl propofol and versed may time sometime to wake up Thrombocytopenia: possible related to HIT vs sepsis Improving trending upward HIT Ab -negative Hematology consult-Dr. Fernandez appreciated-will send antiphospholipid level a whole array of labs sent will follow up No DVT on US duplex haptoglobin WNL LDH repeat only slightly elevated-not consistent with TTP/HUS restart HSQ DIC: patient was likely in DIC on presentation as he had low fibrinogen and increased fibrin degredation products and area of skin necrosis. Fibrinogen now back to normal likely from sepsis resolved lactic acidosis: resolved from sepsis and DKA Microcytic anemia: Send Iron studies-pending check B12 Folate-B12 high Folate WNL polysubstance abuse: family now giving information that he was sniffing glue in addition to doing cocaine and drinking alcohol Will need counselling when extubated consider rehab Metabolic acidosis: significantly improved DKA resolved but remains acidotic will send methanol level and ethylene glycol level continue bicarb gtt Acute renal failure/Acute kidney injury:possible he has chronic renal failure given the fact his renal function is not improving Nephrology consult appreciated Cr 2.5-essental unchanged may be new baseline Complements C3 C4 CLARICE M spike C anca P anca DS DNA ANCA Atypical P anca myeloperoxidase all negative not improving with hydration-stop IVF Trend Cr avoid nephrotoxic drugs we were considering HUS but given haptoglobin normal and no evidence of hemolysis it is unlikely called hematology lab to do a peripheral smear-some schistocytes and anisocytosis but not consistent with HUS given normal Haptoglobin and LDH coming down will recheck LDH as it was elevated but it could also be elevate due to other reasons such as sepsis f/u stool studies for E. COli [id number] not sent patient has not had a BM give colace Transaminitis/questionable history of Liver disease: AST/ALT improving ALK Phos worsening transaminitis likely from shock liver from hypoperfusion vs alcoholic liver disease vs ingestion of toxic substances GI consult appreciated-will send serum copper and ceruloplasmin levels to r/o wilsons disease-pending Liver US showed fatty liver likely from alcoholism vs obesity will need more history from the patient when he is stable alert and awake CTAP-no acute pancreatic pathology or any other acute pathology Pancreatitis:no CT scan evidence and patient not awake to give us history. Lipase elevated on admission Lipase level now back to normal already had GI rest and aggressive IVF continue tube feeds Hematuria: from traumatic arnold insertion and DIC resolved Hypernatremia:patient intially has pseudohyponatremia from hyperglycemia as corrected sodium was normal now patient is hypernatremic stop IVF continue free water through NGT to 400ml q6h and increase free water standing with tube feeds to 50ml/hr trend sodium sodium 155 today Asthma: intubated at this time will address this if it is active once stable FEN: D5W with Bicarb @ 60ml/hr free water through NGT replete potassium for hypokalemia while on insulin gtt keep K+>4.0. hypernatremia see above for plan Promote TF @ 55ml/hr PPx: SCDs/HSQ Pepcid give colace No PT consult at this time CCT 60 minutes including update given to family ICU care Guarded prognosis Visit type - Emergency Visit Emergency Visit: Yes ED Registration Date: 09/18/16 Care time: The patient presented to the Emergency Department on the above date and was hospitalized for further evaluation of their emergent condition. - New Patient This patient is new to me today: No - Critical Care Critical Care patient: Yes Total Critical Care Time (in minutes): 60 Critical Care Statement: The care of this patient involved high complexity decision making to prevent further life threatening deterioration of the patient 's condition and/or to evalute & treat vital organ system(s) failure or risk of failure.
--- NOTE | 2016-09-24 16:57 | PN ---
Progress Note (short form) - Note Progress Note: Patient seen and examined Intubated off sedation unresponsive Last Vital Signs Temp Pulse Resp BP Pulse Ox 99.0 F 102 H 14 130/74 98 09/24/16 14:00 09/24/16 14:00 09/24/16 16:00 09/24/16 16:00 09/24/16 10:39 intubated Cor: RSR, No murmurs, No gallops Lungs: Clear to P&A ant. Abd: Soft, Normal bowel sounds, No organomegaly Ext:No significant edema Abnormal Lab Results 09/23/16 09/23/16 09/23/16 05:15 05:15 05:15 RBC 2.89 L Hgb 9.0 L Hct 26.2 L Plt Count 106 L D Lymphocytes % 7.7 L D PTT (Actin FS) 37.0 H D Fibrinogen ABG pH ABG pCO2 at Pt Temp ABG pO2 at Pt Temp ABG HCO3 ABG O2 Sat (Measured) ABG Base Excess Sodium 153 H Potassium 3.3 L D Chloride 124 H Carbon Dioxide 20 L BUN 30 H Creatinine 2.7 H Random Glucose 263 H D Calcium 7.3 L Ferritin AST 93 H D ALT 131 H D Alkaline Phosphatase 319 H LD Total Total Protein 4.7 L Albumin 1.6 L Vitamin B12 09/23/16 09/23/16 09/23/16 07:40 10:00 15:35 RBC Hgb Hct Plt Count Lymphocytes % PTT (Actin FS) 34.8 H Fibrinogen > 700.0 H ABG pH 7.25 L ABG pCO2 at Pt Temp 46.3 H ABG pO2 at Pt Temp 153.0 H* ABG HCO3 19.5 L ABG O2 Sat (Measured) 99.2 H ABG Base Excess -7.3 L Sodium Potassium Chloride Carbon Dioxide BUN Creatinine Random Glucose 267 H Calcium Ferritin AST ALT Alkaline Phosphatase LD Total Total Protein Albumin Vitamin B12 09/23/16 09/23/16 09/23/16 15:35 17:15 17:15 RBC Hgb Hct Plt Count Lymphocytes % PTT (Actin FS) Fibrinogen ABG pH ABG pCO2 at Pt Temp ABG pO2 at Pt Temp ABG HCO3 ABG O2 Sat (Measured) ABG Base Excess Sodium Potassium Chloride Carbon Dioxide BUN Creatinine Random Glucose Calcium Ferritin 757.631 H AST ALT Alkaline Phosphatase LD Total 254 H D Total Protein Albumin Vitamin B12 3164 H Home Medication List Medication Instructions Recorded Confirmed Type NK [No Known Home Medication] 09/18/16 09/18/16 History Active Medications Generic Name Dose Route Start Last Admin Trade Name Freq PRN Reason Stop Dose Admin Albuterol/Ipratropium 1 amp 09/22/16 12:15 09/23/16 17:40 Duoneb - NEB 1 amp QIDR SILVER Administration Artificial Tears 1 applic 09/23/16 10:00 09/23/16 21:38 Lacri-Lube Eye Ointment - OU 1 applic BID SILVER Administration Chlorhexidine Gluconate 1 applic 09/18/16 22:00 09/23/16 21:14 Hibiclens For Decolonization - TP 1 applic HS SILVER Administration Heparin Sodium (Porcine) 5,000 unit 09/23/16 14:00 09/23/16 21:13 Heparin - SQ 5,000 unit TID SILVER Administration IV Flush 4 ml 09/18/16 20:31 09/23/16 13:30 Triple Lumen Flush IVPUSH 4 ml PRN PRN Administration Protocol Propofol 100 mls @ 2.722 mls/hr 09/18/16 15:00 09/23/16 14:51 Diprivan - IVPB 13.2 mls/hr TITR SILVER Administration Protocol 5 MCG/KG/MIN Famotidine/Sodium Chloride 50 mls @ 100 mls/hr 09/19/16 10:00 09/23/16 21:13 Pepcid 20 Mg Premixed Ivpb - IVPB 100 mls/hr BID SILVER Administration Fentanyl 500 mcg/ Dextrose 100 mls @ 10 mls/hr 09/19/16 01:30 09/23/16 01:14 IVPB 10 mls/hr TITR SILVER Administration 50 MCG/HR Midazolam HCl 100 mg/ Sodium 100 mls @ 1 mls/hr 09/19/16 09:30 09/23/16 20:44 Chloride IVPB 10 mls/hr TITR SILVER Administration Protocol 1 MG/HR Piperacillin Sod/Tazobactam Sod 50 mls @ 100 mls/hr 09/20/16 09:00 09/23/16 17: 01 Zosyn 3.375gm Ivpb (Pre-Docked) IVPB 100 mls/hr Q8H-IV SILVER Administration Protocol Insulin Aspart 1 vial 09/23/16 09:00 09/23/16 21:13 Novolog Vial Sliding Scale - SQ 8 units Q4HWA SILVER Administration Protocol Insulin Detemir 20 units 09/23/16 22:00 09/23/16 21:12 Levemir Vial SQ 20 units HS SILVER Administration Potassium Chloride 40 meq 09/23/16 10:00 09/23/16 21:13 Potassium Chloride Oral Liquid PO 40 meq BID SILVER Administration Thiamine HCl 200 mg 09/19/16 10:00 09/23/16 10:05 Vitamin B1 Injection - IVPB 200 mg DAILY SILVER Administration A/P 25 y/o patient with h/opolysubstance abuse presenting with altered mental status , DKA, DIC/multiorganfailure. Was found unresponsive . DIC: onpresentation fibrinogen was < 100 c/w DIC. PArameters have improved since en. currently fibrinogen is 700 Reviewed peripheral smear -- anisocytosis/poikilocytosis, occ. schistocytes-- LDH--marginally elevated/haptoglobin nl--this is not c/w TTP/HUS Will check antiphospholipid panel HIT neg. VIRGIL neg./ SIFE neg. anemia of chronic disease neurology following patient will follow
[2016-09-24] MEDS: CHLORHEXIDINE GLUCONATE 4% CLEANSER FOR DECOLONIZATION TP SCH (21:51)
[2016-09-24] MEDS: DOCUSATE SODIUM 100 MG CAPSULE (FP) PO SCH (21:52)
[2016-09-24] MEDS: INSULIN DETEMIR 100 UNITS/ML MDV SQ SCH (22:06)
[2016-09-25] MEDS: PIPERACILLIN/TAZOB 3.375 GM 50 ML IVPB SCH ×3 (02:22→19:00)
[2016-09-25] MEDS: FENTANYL INJECTION 500 MCG in DEXTROSE 5%-WATER - 90 ML IVPB SCH (02:23)
[2016-09-25 06:01] LABS: MCH 30.3 pg (25.7-33.7); MCHC 33.5 g/dl (32.0-35.9); MEAN CELL VOLUME 90.5 fl (80-96); MEAN PLT VOLUME 9.6 fl (7.5-11.1); PLATELET COUNT 150 K/MM3 (134-434); RDW 15.3 % (11.9-15.9); WHITE BLOOD COUNT 4.2 K/mm3 (4.0-10.0)
[2016-09-25] MEDS: DOCUSATE SODIUM 100 MG CAPSULE (FP) PO SCH ×2 (06:04→14:52)
[2016-09-25] MEDS: ALBUTEROL SO4 2.5/IPRATROPIUM 0.5 INH SOL 3 ML VIAL.NEB. NEB SCH ×4 (06:10→23:15)
[2016-09-25 06:12] LABS: INR 1.02 (0.82-1.09); PROTHROMBIN TIME (PATIENT) 11.2 SEC (9.98-11.88)
[2016-09-25 06:15] LABS: ACTIVATED PTT 40.7 SECONDS (26.9-34.4)
[2016-09-25] MEDS: HEPARIN NA (PORCINE) 5,000 UNITS/ML 1ML VIAL SQ SCH ×3 (06:15→22:25)
[2016-09-25] MEDS: INSULIN SLIDING SCALE (NOVOLOG) 1 VIAL SQ SCH ×5 (06:17→22:28)
[2016-09-25 06:20] LABS: ALBUMIN 1.5 g/dl (3.4-5.0); BILIRUBIN,TOTAL 0.3 mg/dL (0.2-1.0); CALCIUM 7.4 mg/dL (8.5-10.1); CREATININE 2.3 mg/dL (0.7-1.3); MAGNESIUM 2.5 mg/dL (1.8-2.4); PHOSPHOROUS 2.4 mg/dL (2.5-4.9); TOT PROT 5.1 g/dl (6.4-8.2)
--- NOTE | 2016-09-25 07:14 | PN ---
Progress Note, Physician Chief Complaint: ID Zosyn day 5 Vancomycin intermittent dose for MRSA Low grade fevers - Current Medication List Current Medications: Active Medications Albuterol/Ipratropium (Duoneb -) 1 amp NEB QIDR [facility] Last Admin: 09/24/16 23:29 Dose: 1 amp Artificial Tears (Lacri-Lube Eye Ointment -) 1 applic OU BID SILVER Last Admin: 09/24/16 21:51 Dose: 1 applic Chlorhexidine Gluconate (Hibiclens For Decolonization -) 1 applic TP HS [facility] Last Admin: 09/24/16 21:51 Dose: 1 applic Docusate Sodium (Colace -) 100 mg PO TID [facility] Stop: 09/25/16 14:01 Last Admin: 09/25/16 06:04 Dose: Not Given Heparin Sodium (Porcine) (Heparin -) 5,000 unit SQ TID [facility] Last Admin: 09/25/16 06:15 Dose: 5,000 unit IV Flush (Triple Lumen Flush) 4 ml IVPUSH PRN PRN PRN Reason: Protocol Last Admin: 09/23/16 13:30 Dose: 4 ml Propofol (Diprivan -) 100 mls @ 2.722 mls/hr IVPB TITR SILVER; 5 MCG/KG/MIN PRN Reason: Protocol Last Admin: 09/24/16 18:44 Dose: Not Given Famotidine/Sodium Chloride (Pepcid 20 Mg Premixed Ivpb -) 50 mls @ 100 mls/hr IVPB BID [facility] Last Admin: 09/24/16 21:50 Dose: 100 mls/hr Fentanyl 500 mcg/ Dextrose 100 mls @ 10 mls/hr IVPB TITR SILVER PRN Reason: 50 MCG/HR Last Admin: 09/25/16 02:23 Dose: Not Given Midazolam HCl 100 mg/ Sodium (Chloride) 100 mls @ 1 mls/hr IVPB TITR SILVER; 1 MG/ HR PRN Reason: Protocol Last Admin: 09/24/16 06:56 Dose: 10 mls/hr Piperacillin Sod/Tazobactam Sod (Zosyn 3.375gm Ivpb (Pre-Docked)) 50 mls @ 100 mls/hr IVPB Q8H-IV SILVER PRN Reason: Protocol Last Admin: 09/25/16 02:22 Dose: 100 mls/hr Insulin Aspart (Novolog Vial Sliding Scale -) 1 vial SQ Q4HWA [facility] PRN Reason: Protocol Last Admin: 09/25/16 06:17 Dose: 16 units Insulin Detemir (Levemir Vial) 25 units SQ HS [facility] Last Admin: 09/24/16 22:06 Dose: 25 units Potassium Chloride (Potassium Chloride Oral Liquid) 40 meq PO BID [facility] Last Admin: 09/24/16 21:51 Dose: 40 meq Thiamine HCl (Vitamin B1 Injection -) 200 mg IVPB DAILY [facility] Last Admin: 09/24/16 09:52 Dose: 200 mg - Objective Vital Signs: Vital Signs Temperature 98.7 F 09/25/16 06:00 Pulse Rate 87 09/25/16 06:00 Respiratory Rate 20 09/25/16 06:00 Blood Pressure 148/97 09/25/16 06:00 O2 Sat by Pulse Oximetry (%) 98 09/24/16 20:15 Constitutional: Yes: Other (Intubated) Cardiovascular: Yes: S1, S2 Respiratory: Yes: Rhonchi Gastrointestinal: Yes: Soft. No: Tenderness Edema: No Labs: CBC, BMP 09/25/16 05:15 09/25/16 05:15 INR, PTT INR 1.02 (0.82-1.09) 09/25/16 05:15 Fibrinogen > 700.0 mg/dL (238-498) H 09/23/16 15:35 Problem List - Problems (1) Acute renal insufficiency Code(s): N28.9 - DISORDER OF KIDNEY AND URETER, UNSPECIFIED (2) Altered mental status Code(s): R41.82 - ALTERED MENTAL STATUS, UNSPECIFIED Qualifiers: Altered mental status type: stupor Qualified Code(s): R40.1 - Stupor (3) DKA (diabetic ketoacidosis) Code(s): E13.10 - OTH DIABETES MELLITUS WITH KETOACIDOSIS WITHOUT COMA Qualifiers: Diabetes mellitus type: type 1 Diabetes mellitus complication detail: with coma Qualified Code(s): E10.11 - Type 1 diabetes mellitus with ketoacidosis with coma (4) Lactic acidosis Code(s): E87.2 - ACIDOSIS (5) Sepsis Code(s): A41.9 - SEPSIS, UNSPECIFIED ORGANISM Assessment/Plan Microbiology 09/21/16 18:30 Nasopharyngeal Swab Nasopharyngeal Culture - Final Yeast Like Organism 09/20/16 23:27 Sputum - Endotrachea Suction/Ventilator Gram Stain - Final 09/20/16 23:27 Sputum - Endotrachea Suction/Ventilator Sputum Culture - Final Yeast Like Organism S Aureus Laboratory Tests 09/24/16 09/25/16 09/25/16 08:40 05:15 05:15 WBC 4.2 Hgb 9.0 L Hct 26.7 L Plt Count 150 D ABG pH 7.34 L ABG pCO2 at Pt Temp 43.3 ABG pO2 at Pt Temp 70.5 L D BUN 30 H Creat Clearance w eGFR 35.11 AST 35 D ALT 66 D Alkaline Phosphatase 339 H Random Vancomycin 15.587 Assessment Respiratory failure with polysubstance abuse DKA SEAN Low grade fevers unsure the reason Now day 7 antibiotics. Zosyn and add Vanco last 2 days Plan If low grade fevers persist into tomorrow I would stop all antibiotics wait and maybe reculture after that recurrent fevers. At this point WBC normal blood cultures negative and MRSA could be colonizer Junie JONES
[2016-09-25 07:25] LABS: ALLENS TEST POSITIVE; ART PUNCT SITE RIGHT RADIAL; ARTERIAL BLD GAS O2 SATURATION 98.6 % (90-98.9); ARTERIAL BLOOD GAS BASE EXCESS 0.1 meq/l (-2-2); ARTERIAL BLOOD GAS HCO3 24.8 meq/L (22-26); ARTERIAL BLOOD GAS pH 7.38 (7.35-7.45); LPM/O2% 40%; MECH. VENT. YES; PT. ON O2? YES; TYPE OF O2 VENTILATOR; VENT RATE 16; VT/PRESS 450
[2016-09-25 08:07] LABS: HIGH DOSE HEPARIN SRA 1 % (0-20); LOW DOSE HEPARIN SRA 1 % (0-20)
[2016-09-25 08:07] LABS: SERUM IRON 10 ug/dL (38-169); TOTAL IRON BINDING CAPACITY 92 ug/dL (250-450); UIBC 82 ug/dL (111-343)
[2016-09-25 09:23] LABS: PLATELET ESTIMATE ADEQUATE (NORMAL)
[2016-09-25] MEDS: FAMOTIDINE 20 MG/50 ML IVPB 50 ML IVPB SCH ×2 (09:57→22:25)
[2016-09-25] MEDS: POTASSIUM CHLORIDE ORAL LIQUID 20 MEQ/15 ML PO SCH ×2 (09:57→22:25)
[2016-09-25] MEDS: THIAMINE HCL 200 MG/2 ML VIAL IVPB SCH (09:58)
[2016-09-25] MEDS: OCULAR LUBRICANT OPHTHALMIC OINTMENT 7 GM TUBE OU SCH ×2 (09:59→22:27)
[2016-09-25] MEDS ORDERED: VANCOMYCIN 1,500 MG in DEXTROSE 5%-WATER - 500 ML IVPB ONE (10:00)
--- NOTE | 2016-09-25 11:36 | PN ---
Teaching Attending Note Name of Resident: Pilo Gonzales ATTENDING PHYSICIAN STATEMENT I saw and evaluated the patient. I reviewed the resident's note and discussed the case with the resident. I agree with the resident's findings and plan as documented. SUBJECTIVE: Patient seen and examined in the ICU. Remains intubated, poorly responsive although sedation has been off since yesterday (was on high dose Versed). He does have grimace to pain today. Noted large volume diuresis. OBJECTIVE: Intake & Output 09/22/16 09/23/16 09/24/16 09/25/16 23:59 23:59 23:59 23:59 Intake Total 4030.4 3486 4079.6 1660 Output Total 3100 7700 2100 1800 Balance 930.4 -4214 1979.6 -140 Weight 224 lb 6.889 oz 219 lb 2.232 oz 214 lb 15.211 oz 215 lb 7 oz Last Vital Signs Temp Pulse Resp BP Pulse Ox 98.8 F 90 18 144/95 99 09/25/16 10:00 09/25/16 10:25 09/25/16 10:00 09/25/16 10:00 09/25/16 10:25 Active Medications Albuterol/Ipratropium (Duoneb -) 1 amp NEB QIDR [facility] Last Admin: 09/25/16 06:10 Dose: 1 amp Artificial Tears (Lacri-Lube Eye Ointment -) 1 applic OU BID [facility] Last Admin: 09/25/16 09:59 Dose: 1 applic Chlorhexidine Gluconate (Hibiclens For Decolonization -) 1 applic TP HS [facility] Last Admin: 09/24/16 21:51 Dose: 1 applic Docusate Sodium (Colace -) 100 mg PO TID [facility] Stop: 09/25/16 14:01 Last Admin: 09/25/16 06:04 Dose: Not Given Heparin Sodium (Porcine) (Heparin -) 5,000 unit SQ TID [facility] Last Admin: 09/25/16 06:15 Dose: 5,000 unit IV Flush (Triple Lumen Flush) 4 ml IVPUSH PRN PRN PRN Reason: Protocol Last Admin: 09/23/16 13:30 Dose: 4 ml Propofol (Diprivan -) 100 mls @ 2.722 mls/hr IVPB TITR [facility]ILVER; 5 MCG/KG/MIN PRN Reason: Protocol Last Admin: 09/24/16 18:44 Dose: Not Given Famotidine/Sodium Chloride (Pepcid 20 Mg Premixed Ivpb -) 50 mls @ 100 mls/hr IVPB BID [facility] Last Admin: 09/25/16 09:57 Dose: 100 mls/hr Fentanyl 500 mcg/ Dextrose 100 mls @ 10 mls/hr IVPB TITR SILVER PRN Reason: 50 MCG/HR Last Admin: 09/25/16 02:23 Dose: Not Given Midazolam HCl 100 mg/ Sodium (Chloride) 100 mls @ 1 mls/hr IVPB TITR SILVER; 1 MG/ HR PRN Reason: Protocol Last Admin: 09/24/16 06:56 Dose: 10 mls/hr Piperacillin Sod/Tazobactam Sod (Zosyn 3.375gm Ivpb (Pre-Docked)) 50 mls @ 100 mls/hr IVPB Q8H-IV [facility]IL[facility] PRN Reason: Protocol Last Admin: 09/25/16 09:57 Dose: 100 mls/hr Vancomycin HCl 1,500 mg/ (Dextrose) 500 mls @ 250 mls/hr IVPB ONCE ONE Stop: 09/25/16 11:59 Last Admin: 09/25/16 09:57 Dose: 250 mls/hr Insulin Aspart (Novolog Vial Sliding Scale -) 1 vial SQ Q4HWA [facility] PRN Reason: Protocol Last Admin: 09/25/16 10:28 Dose: 14 units Insulin Detemir (Levemir Vial) 25 units SQ HS [facility] Last Admin: 09/24/16 22:06 Dose: 25 units Potassium Chloride (Potassium Chloride Oral Liquid) 40 meq PO BID [facility] Last Admin: 09/25/16 09:57 Dose: 40 meq Thiamine HCl (Vitamin B1 Injection -) 200 mg IVPB DAILY [facility] Last Admin: 09/25/16 09:58 Dose: 200 mg Gen: intubated, poorly responsive Heart: tachycardic, regular Lung: scattered rhonchi Abd: soft, nontender Ext: decreasing edema Laboratory Results - last 24 hr 09/23/16 09/23/16 09/24/16 12:25 17:15 13:05 WBC RBC Hgb Hct MCV MCHC RDW Plt Count MPV Neutrophils % Lymphocytes % Monocytes % Eosinophils % Band Neutrophils Nucleated RBCs Differential Comment Platelet Estimate INR PTT (Actin FS) Puncture Site ABG pH ABG pCO2 at Pt Temp ABG pO2 at Pt Temp ABG HCO3 ABG O2 Sat (Measured) ABG O2 Content ABG Base Excess Dennis Test O2 Delivery Device Oxygen Flow Rate Vent Mode Vent Rate Mechanical Rate PEEP Pressure Support Vent Sodium Potassium Chloride Carbon Dioxide Anion Gap BUN Creatinine Creat Clearance w eGFR POC Glucometer [phone] Random Glucose Calcium Phosphorus Magnesium Iron 10 L TIBC 92 L Iron Saturation 11 L Total Bilirubin AST ALT Alkaline Phosphatase LD Total Total Protein Albumin Ceruloplasmin 33.6 H Random Vancomycin 09/24/16 09/25/16 09/25/16 17:05 05:15 05:15 WBC 4.2 RBC 2.96 L Hgb 9.0 L Hct 26.7 L MCV 90.5 MCHC 33.5 RDW 15.3 Plt Count 150 D MPV 9.6 Neutrophils % 50.0 D Lymphocytes % 32.0 D Monocytes % 14.0 H Eosinophils % 2.0 Band Neutrophils 2.0 Nucleated RBCs 1 H Differential Comment Manual diff done Platelet Estimate Adequate INR 1.02 PTT (Actin FS) 40.7 H Puncture Site ABG pH ABG pCO2 at Pt Temp ABG pO2 at Pt Temp ABG HCO3 ABG O2 Sat (Measured) ABG O2 Content ABG Base Excess Dennis Test O2 Delivery Device Oxygen Flow Rate Vent Mode Vent Rate Mechanical Rate PEEP Pressure Support Vent Sodium Potassium Chloride Carbon Dioxide Anion Gap BUN Creatinine Creat Clearance w eGFR POC Glucometer [phone] Random Glucose Calcium Phosphorus Magnesium Iron TIBC Iron Saturation Total Bilirubin AST ALT Alkaline Phosphatase LD Total Total Protein Albumin Ceruloplasmin Random Vancomycin 09/25/16 09/25/16 09/25/16 05:15 07:15 10:17 WBC RBC Hgb Hct MCV MCHC RDW Plt Count MPV Neutrophils % Lymphocytes % Monocytes % Eosinophils % Band Neutrophils Nucleated RBCs Differential Comment Platelet Estimate INR PTT (Actin FS) Puncture Site Right radial ABG pH 7.38 ABG pCO2 at Pt Temp 42.9 ABG pO2 at Pt Temp 120.0 H D ABG HCO3 24.8 ABG O2 Sat (Measured) 98.6 ABG O2 Content 17.2 ABG Base Excess 0.1 Dennis Test Positive O2 Delivery Device Ventilator Oxygen Flow Rate 40% Vent Mode A/c Vent Rate 16 Mechanical Rate Yes PEEP 5.0 Pressure Support Vent 450 Sodium 158 H Potassium 4.0 Chloride 126 H Carbon Dioxide 25 Anion Gap 7 L BUN 30 H Creatinine 2.3 H Creat Clearance w eGFR 35.11 POC Glucometer [phone] Random Glucose 237 H Calcium 7.4 L Phosphorus 2.4 L D Magnesium 2.5 H Iron TIBC Iron Saturation Total Bilirubin 0.3 D AST 35 D ALT 66 D Alkaline Phosphatase 339 H LD Total 302 H Total Protein 5.1 L Albumin 1.5 L Ceruloplasmin Random Vancomycin 15.587 ASSESSMENT AND PLAN: Acute Respiratory Failure Polysubstance Abuse Diabetic Ketoacidosis resolving Metabolic Acidosis r/o Septic Shock Acute Kidney Injury Lactic Acidosis resolved Elevated LFTs ?Alcohol Withdrawal Volume Overload - continue antibiotics per ID - daily assessment for lasix - monitor urine output, creatinine - free water via GT - monitoring off pressors, maintain MAP >65 - replete lytes - hold all sedation to assess mental status - spontaneous breathing trials as tolerated when mental status improved - enteral feeds - DVT/GI prophylaxis Critical care time spent in reviewing chart, evaluating patient and formulating plan [address] Moran
[2016-09-25] MEDS ORDERED: INSULIN REGULAR 100 UNITS in SODIUM CHLORIDE 99 ML IVPB SCH (11:45)
--- NOTE | 2016-09-25 12:07 | PN ---
Progress Note (short form) - Note Progress Note: Patient seen and examined Intubated off sedation responding to painful stimuli Last Vital Signs Temp Pulse Resp BP Pulse Ox 98.8 F 90 18 144/95 99 09/25/16 10:00 09/25/16 10:25 09/25/16 10:00 09/25/16 10:00 09/25/16 10:25 intubated Cor: RSR, No murmurs, No gallops Lungs: Clear to P&A ant. Abd: Soft, Normal bowel sounds, No organomegaly Ext:anasarca Abnormal Lab Results 09/23/16 09/23/16 09/25/16 12:25 17:15 05:15 RBC 2.96 L Hgb 9.0 L Hct 26.7 L Monocytes % 14.0 H Nucleated RBCs 1 H PTT (Actin FS) ABG pO2 at Pt Temp Sodium Chloride Anion Gap BUN Creatinine Random Glucose Calcium Phosphorus Magnesium Iron 10 L TIBC 92 L Iron Saturation 11 L Alkaline Phosphatase LD Total Total Protein Albumin Ceruloplasmin 33.6 H 09/25/16 09/25/16 09/25/16 05:15 05:15 07:15 RBC Hgb Hct Monocytes % Nucleated RBCs PTT (Actin FS) 40.7 H ABG pO2 at Pt Temp 120.0 H D Sodium 158 H Chloride 126 H Anion Gap 7 L BUN 30 H Creatinine 2.3 H Random Glucose 237 H Calcium 7.4 L Phosphorus 2.4 L D Magnesium 2.5 H Iron TIBC Iron Saturation Alkaline Phosphatase 339 H LD Total 302 H Total Protein 5.1 L Albumin 1.5 L Ceruloplasmin Active Medications Generic Name Dose Route Start Last Admin Trade Name Kira PRN Reason Stop Dose Admin Albuterol/Ipratropium 1 amp 09/22/16 12:15 09/25/16 11:05 Duoneb - NEB 1 amp QIDR [facility] Administration Artificial Tears 1 applic 09/23/16 10:00 09/25/16 09:59 Lacri-Lube Eye Ointment - OU 1 applic BID [facility] Administration Chlorhexidine Gluconate 1 applic 09/18/16 22:00 09/24/16 21:51 Hibiclens For Decolonization - TP 1 applic HS [facility] Administration Docusate Sodium 100 mg 09/24/16 22:00 09/25/16 06:04 Colace - PO 09/25/16 14:01 Not Given TID [facility]IL[facility] Heparin Sodium (Porcine) 5,000 unit 09/23/16 14:00 09/25/16 06:15 Heparin - SQ 5,000 unit TID [facility] Administration IV Flush 4 ml 09/18/16 20:31 09/23/16 13:30 Triple Lumen Flush IVPUSH 4 ml PRN PRN Administration Protocol Propofol 100 mls @ 2.722 mls/hr 09/18/16 15:00 09/24/16 18:44 Diprivan - IVPB Not Given TITR [facility] Protocol 5 MCG/KG/MIN Famotidine/Sodium Chloride 50 mls @ 100 mls/hr 09/19/16 10:00 09/25/16 09:57 Pepcid 20 Mg Premixed Ivpb - IVPB 100 mls/hr BID [facility] Administration Fentanyl 500 mcg/ Dextrose 100 mls @ 10 mls/hr 09/19/16 01:30 09/25/16 02:23 IVPB Not Given TITR [facility] 50 MCG/HR Midazolam HCl 100 mg/ Sodium 100 mls @ 1 mls/hr 09/19/16 09:30 09/24/16 06:56 Chloride IVPB 10 mls/hr TITR [facility] Administration Protocol 1 MG/HR Piperacillin Sod/Tazobactam Sod 50 mls @ 100 mls/hr 09/20/16 09:00 09/25/16 09: 57 Zosyn 3.375gm Ivpb (Pre-Docked) IVPB 100 mls/hr Q8H-IV [facility] Administration Protocol Insulin Human Regular 100 100 mls @ 6 mls/hr 09/25/16 11:45 units/ Sodium Chloride IVPB Q17H [facility] Protocol 6 UNITS/HR Insulin Aspart 1 vial 09/24/16 18:00 09/25/16 10:28 Novolog Vial Sliding Scale - SQ 14 units Q4HWA [facility] Administration Protocol Insulin Detemir 25 units 09/24/16 22:00 09/24/16 22:06 Levemir Vial SQ 25 units HS [facility] Administration Potassium Chloride 40 meq 09/23/16 10:00 09/25/16 09:57 Potassium Chloride Oral Liquid PO 40 meq BID [facility] Administration Thiamine HCl 200 mg 09/19/16 10:00 09/25/16 09:58 Vitamin B1 Injection - IVPB 200 mg DAILY [facility] Administration A/P 25 y/o patient with h/o polysubstance abuse presenting with altered mental status, DKA, DIC/multiorganfailure. Was found unresponsive . DIC: onpresentation fibrinogen was < 100 c/w DIC. PArameters have improved since en. currently fibrinogen is 700 Reviewed peripheral smear -- anisocytosis/poikilocytosis, occ. schistocytes-- LDH--marginally elevated/haptoglobin nl--this is not c/w TTP/HUS Will check antiphospholipid panel HIT neg. VIRGIL neg./ SIFE neg. superficial thrombophlebitis both upper ext. No DVt Renal u/s--patent renal veins f/u derm consult regarding skin necrosis will follow
--- NOTE | 2016-09-25 13:04 | PN ---
Physical Exam: SUBJECTIVE: Patient seen and examined at bed side in ICU. low grade twmp last night. blood sugars in 200's, increased SSI, discussed with endocrinology Runs of VTachy 20 beats lead II and V1 on monitor family says he was coughing, back to sinus @89, BP 127/82, 12 lead EKG NS 93bpm, QTc 387, normal axes, nonspecific ST abnormality, cardiac enzymes sent. repeat US of upper ext shows extension of thrombus. OBJECTIVE: Vital Signs Period Temp Pulse Resp BP Sys/Gould Pulse Ox Last 24 Hr 98.7 F-100.4 F 87-112 14-25 117-148/71-97 98-99 GENERAL: intubated, sedated, more arousable, moving eyes, not tracking, moving head. HEAD: Normal with no signs of trauma. EYES: PERRL, no sclera anicteric, conjunctiva clear. No ptosis. ENT: Ears normal, nares patent, oropharynx clear without exudates, moist mucous membranes. pressure ulcer on Right ear. NECK: Trachea midline, full range of motion, supple. LUNGS: scattered rhonchi, no wheezes, no crackles, no accessory muscle use. HEART: Regular rate and rhythm, S1, S2 without murmur, rub or gallop. ABDOMEN: Obese, Soft, nontender, nondistended, normoactive bowel sounds, no guarding, no rebound, no hepatosplenomegaly, no masses appreciated. swollen erthymatus excoriation of scrotum. EXTREMITIES: 2+ pulses, warm, well-perfused, no edema. NEUROLOGICAL: gag reflex present, no facial asymmetry, patient sedated SKIN: two dark purple/black yimi largest rectangular flat patch right forearm 2 1/2 cm x 5cm with erythematus border no change in size or color. Laboratory Results - last 24 hr 09/23/16 09/23/16 09/24/16 12:25 17:15 13:05 WBC RBC Hgb Hct MCV MCHC RDW Plt Count MPV Neutrophils % Lymphocytes % Monocytes % Eosinophils % Band Neutrophils Nucleated RBCs Differential Comment Platelet Estimate INR PTT (Actin FS) Puncture Site ABG pH ABG pCO2 at Pt Temp ABG pO2 at Pt Temp ABG HCO3 ABG O2 Sat (Measured) ABG O2 Content ABG Base Excess Dennis Test O2 Delivery Device Oxygen Flow Rate Vent Mode Vent Rate Mechanical Rate PEEP Pressure Support Vent Sodium Potassium Chloride Carbon Dioxide Anion Gap BUN Creatinine Creat Clearance w eGFR POC Glucometer [phone] Random Glucose Calcium Phosphorus Magnesium Iron 10 L TIBC 92 L Iron Saturation 11 L Total Bilirubin AST ALT Alkaline Phosphatase LD Total Total Protein Albumin Ceruloplasmin 33.6 H Random Vancomycin 09/24/16 09/24/16 09/25/16 17:05 22:02 05:15 WBC 4.2 RBC 2.96 L Hgb 9.0 L Hct 26.7 L MCV 90.5 MCHC 33.5 RDW 15.3 Plt Count 150 D MPV 9.6 Neutrophils % 50.0 D Lymphocytes % 32.0 D Monocytes % 14.0 H Eosinophils % 2.0 Band Neutrophils 2.0 Nucleated RBCs 1 H Differential Comment Manual diff done Platelet Estimate Adequate INR PTT (Actin FS) Puncture Site ABG pH ABG pCO2 at Pt Temp ABG pO2 at Pt Temp ABG HCO3 ABG O2 Sat (Measured) ABG O2 Content ABG Base Excess Dennis Test O2 Delivery Device Oxygen Flow Rate Vent Mode Vent Rate Mechanical Rate PEEP Pressure Support Vent Sodium Potassium Chloride Carbon Dioxide Anion Gap BUN Creatinine Creat Clearance w eGFR POC Glucometer [phone] Random Glucose Calcium Phosphorus Magnesium Iron TIBC Iron Saturation Total Bilirubin AST ALT Alkaline Phosphatase LD Total Total Protein Albumin Ceruloplasmin Random Vancomycin 09/25/16 09/25/16 09/25/16 05:15 05:15 07:15 WBC RBC Hgb Hct MCV MCHC RDW Plt Count MPV Neutrophils % Lymphocytes % Monocytes % Eosinophils % Band Neutrophils Nucleated RBCs Differential Comment Platelet Estimate INR 1.02 PTT (Actin FS) 40.7 H Puncture Site Right radial ABG pH 7.38 ABG pCO2 at Pt Temp 42.9 ABG pO2 at Pt Temp 120.0 H D ABG HCO3 24.8 ABG O2 Sat (Measured) 98.6 ABG O2 Content 17.2 ABG Base Excess 0.1 Dennis Test Positive O2 Delivery Device Ventilator Oxygen Flow Rate 40% Vent Mode A/c Vent Rate 16 Mechanical Rate Yes PEEP 5.0 Pressure Support Vent 450 Sodium 158 H Potassium 4.0 Chloride 126 H Carbon Dioxide 25 Anion Gap 7 L BUN 30 H Creatinine 2.3 H Creat Clearance w eGFR 35.11 POC Glucometer Random Glucose 237 H Calcium 7.4 L Phosphorus 2.4 L D Magnesium 2.5 H Iron TIBC Iron Saturation Total Bilirubin 0.3 D AST 35 D ALT 66 D Alkaline Phosphatase 339 H LD Total 302 H Total Protein 5.1 L Albumin 1.5 L Ceruloplasmin Random Vancomycin 15.587 09/25/16 09/25/16 10:17 12:14 WBC RBC Hgb Hct MCV MCHC RDW Plt Count MPV Neutrophils % Lymphocytes % Monocytes % Eosinophils % Band Neutrophils Nucleated RBCs Differential Comment Platelet Estimate INR PTT (Actin FS) Puncture Site ABG pH ABG pCO2 at Pt Temp ABG pO2 at Pt Temp ABG HCO3 ABG O2 Sat (Measured) ABG O2 Content ABG Base Excess Dennis Test O2 Delivery Device Oxygen Flow Rate Vent Mode Vent Rate Mechanical Rate PEEP Pressure Support Vent Sodium Potassium Chloride Carbon Dioxide Anion Gap BUN Creatinine Creat Clearance w eGFR POC Glucometer 208.73626 229.94763 Random Glucose Calcium Phosphorus Magnesium Iron TIBC Iron Saturation Total Bilirubin AST ALT Alkaline Phosphatase LD Total Total Protein Albumin Ceruloplasmin Random Vancomycin Active Medications Generic Name Dose Route Start Last Admin Trade Name Freq PRN Reason Stop Dose Admin Albuterol/Ipratropium 1 amp 09/22/16 12:15 09/25/16 11:05 Duoneb - NEB 1 amp QIDR [facility] Administration Artificial Tears 1 applic 09/23/16 10:00 09/25/16 09:59 Lacri-Lube Eye Ointment - OU 1 applic BID [facility] Administration Chlorhexidine Gluconate 1 applic 09/18/16 22:00 09/24/16 21:51 Hibiclens For Decolonization - TP 1 applic HS [facility] Administration Docusate Sodium 100 mg 09/24/16 22:00 09/25/16 06:04 Colace - PO 09/25/16 14:01 Not Given TID [facility] Heparin Sodium (Porcine) 5,000 unit 09/23/16 14:00 09/25/16 06:15 Heparin - SQ 5,000 unit TID [facility] Administration IV Flush 4 ml 09/18/16 20:31 09/23/16 13:30 Triple Lumen Flush IVPUSH 4 ml PRN PRN Administration Protocol Propofol 100 mls @ 2.722 mls/hr 09/18/16 15:00 09/24/16 18:44 Diprivan - IVPB Not Given TITR [facility] Protocol 5 MCG/KG/MIN Famotidine/Sodium Chloride 50 mls @ 100 mls/hr 09/19/16 10:00 09/25/16 09:57 Pepcid 20 Mg Premixed Ivpb - IVPB 100 mls/hr BID [facility] Administration Fentanyl 500 mcg/ Dextrose 100 mls @ 10 mls/hr 09/19/16 01:30 09/25/16 02:23 IVPB Not Given TITR [facility] 50 MCG/HR Midazolam HCl 100 mg/ Sodium 100 mls @ 1 mls/hr 09/19/16 09:30 09/24/16 06:56 Chloride IVPB 10 mls/hr TITR [facility] Administration Protocol 1 MG/HR Piperacillin Sod/Tazobactam Sod 50 mls @ 100 mls/hr 09/20/16 09:00 09/25/16 09: 57 Zosyn 3.375gm Ivpb (Pre-Docked) IVPB 100 mls/hr Q8H-IV [facility] Administration Protocol Insulin Aspart 1 vial 09/25/16 13:01 Novolog Vial Sliding Scale - SQ Q4HWA [facility] Protocol Insulin Detemir 25 units 09/24/16 22:00 09/24/16 22:06 Levemir Vial SQ 25 units HS [facility] Administration Potassium Chloride 40 meq 09/23/16 10:00 09/25/16 09:57 Potassium Chloride Oral Liquid PO 40 meq BID [facility] Administration Thiamine HCl 200 mg 09/19/16 10:00 09/25/16 09:58 Vitamin B1 Injection - IVPB 200 mg DAILY [facility] Administration Bilateral upper arm ultrasound. -There is superficial venous thromboses in the right upper extremity involving the right basilic vein at the antecubital level as well as the cephalic vein from proximal level down to the wrist. -There is also superficial femoral thromboses involving the proximal left cephalic vein at the upper arm level. Left basilic vein is patent without evidence of thrombosis. IMPRESSION: There is no evidence of deep venous thrombosis in the right and left upper extremity. Superficial venous thromboses in the right upper extremity involving the cephalic and basilic vein as well as superficial venous on boluses in the left upper extremity involving the proximal cephalic vein. ASSESSMENT/PLAN: 25M found down with no PMH of DM presents to the ED unresponsive in DKA and sepsis shock. Leukocytosis resolved, tachy cardic, fever last night, on levophed, lactic acidosis trended down. will keep sedated for another night total of 6 days, to cover withdraw window. Acute respiratory failure: 2/2 to metabolic DKA, PNA, sinusitis, intubated and sedated CXR patchy infiltrate, paO2/Fio2 ratio: 176.25 possible secondary to acute volume overload or inha hold sedation to assess mental status, patient was on high dose versad and inlight of SEAN, still not responding to pain, tactile, vocal stimuli. Spontaneous breathing trials as tolerated when mental status improved. mixed metabolic and respiratory acidosis. bicarb gtt today Diabetic ketoacidosis: resolved Gap closed, off bicarg gtt Metabolic acidosis resolved DM: BS still 200's, increased ISS today, D5w 20Kcl 75ml/hr BMP q4h HbA1C 12.9 methanol and ethylin glycol levels pending Septic Shock: leukocytosis resolved, tachycardic, fever last night, BP stable off of pressors, lactic acidosis trending down. Multiorgan failure keep CVP 8-12 if needed IVNS 500cc Bolus Off of pressors to maintain MAP >65 unknown source at this time, possible sinusitis source. on antibiotic. Sputum Cx growing MRSA. BCx, UCx, CSF cultures No growth, continue to follow. Low grade temps noted but on a cooling blanket Vancomycin added for MRSA positive Zosyn day 4 presumed aspiration Cardio: Runs of VTachy 20 beats lead II and V1 on monitor family says he was coughing, back to sinus @89, BP 127/82, 12 lead EKG NS 93bpm, QTc 387, normal axes, nonspecific ST abnormality, cardiac enzymes sent. Thrombosis superficial- extendeded to prior US- supportive care repeat duplex tomorrow to check for extension derm consult regarding necrotic area on fore arm Acute uncompensated primary acidosis with metabolic acidosis, with a normal anion GAP, expected PH=7.24, CO2 45, HCO3 20. on bicarb gtt ventilator Lactic acidosis:resolved 2/2 DKA and dehydration, hypovolemia trend lactic acid IVF Toxic metabolic encephalopathy - Possible seizure activity when sedation is lightened, in light of history patient drinks 15 to 20 beers daily. possible withdrawals, currently off Versed to assess mental status. treated for 6 day with versed, should be out of the withdrawal window. Thrombocytopenia: Resolved less likely related to HIT HIT Ab negative Send serotonin release assay LDH elevated haptoglobin wnl restarted on Heparin DIC: (low fibrinogen <100, inc fibrin degradation products, skin necrosis) improving, currently fibrinogen Normalized is 700, platelets slightly improved. peripheral smear -Anisocytosis/poikilocytosis, occ. schistocytes--09/23 per oncology LDH--marginally elevated/haptoglobin nl--this is not c/w TTP/HUS per oncology Will check antiphospholipid panel per oncology HIT neg VIRGIL neg./ SIFE neg.per oncology Coags WNL Anemia of chronic disease: could be secondary to Dm and chronic kidney injury Alcohol abuse/ withdrawal thiamine and folate completed 6 day of versad, currently off versed. Polysubstance Abuse: monitor for withdrawal supportive care Acute kidney injury: slightly improving. most likely 2/2 prerenal azotemia or ATN or primary acute on chronic kidney disease or toxin induced. IVF follow kidney function C'3 and C'4, Antibodies work up VIRGIL DS DNA Myeloperoxidase Anca Etc pending HUS less likely, but given haptoglobin normal and no evidence of hemolysis it is unlikely called hematology lab to do a peripheral smear and will follow it up will recheck LDH as it was elevated but it could also be elevate due to other reasons such as sepsis f/u stool studies for E. COli [id number] Transaminitis: questionable history of Liver disease, alcohol, drug, Tylenol use , possibly secondary to shock LFTs decreasing today, alk phos increased today. fatty liver on US: alcoholism vs obesity IVF CT Abdomen pelvis with po contrast can not give IV contrast as patient is in renal failure. GI consult appreciated-will follow up serum copper and ceruloplasmin levels to r /o wilsons disease pancreatitis less likely, no evidence on Ct, Lipase elevated on admission currently trended back down. IVF Hematuria:resolved, 2/2 traumatic arnold insertion Hypernatremia: not responding to free water. awaiting repeat labs and Dr. Caba will adjust free water and fluids. Free water def 7.5L D5W No lasix increased free water through NGT consulted associate director qa pharmacy input appreciated Microcytic anemia: f/u Iron studies B12 Folate-elevated Asthma: duonebs intubated at this time FEN: D5W with Bicarb @ 60ml/hr free water increased today through NGT replete potassium for hypokalemia while on insulin gtt keep K+>4.0. hypernatremia see above for plan NPO - enteral feeds PPx: Heparin sq tid, heparin antibody negative Pepcid No PT consult at this time dispo: continue ICU monitoring Visit type - Emergency Visit Emergency Visit: Yes ED Registration Date: 09/18/16 Care time: The patient presented to the Emergency Department on the above date and was hospitalized for further evaluation of their emergent condition. - New Patient This patient is new to me today: No - Critical Care Critical Care patient: Yes Total Critical Care Time (in minutes): 46 Critical Care Statement: The care of this patient involved high complexity decision making to prevent further life threatening deterioration of the patient 's condition and/or to evalute & treat vital organ system(s) failure or risk of failure.
--- NOTE | 2016-09-25 14:13 | PN ---
Teaching Attending Note Name of Resident: Danny Shine ATTENDING PHYSICIAN STATEMENT I saw and evaluated the patient. I reviewed the resident's note and discussed the case with the resident. I agree with the resident's findings and plan as documented. SUBJECTIVE no events over night . off sedation since yesterday, no improvement in mental status OBJECTIVE: intubated , off sedation , has gag reflex and cough reflex HEENT: round equal pupils , reactive to light , ET tube in . no JVD, R IJ in Cv; RRR, NL S1, S2, no MRG Lungs :CTAB Abd ; soft, decreased BS Ext : no edema over LE . 2 areas of black coloration on R fore arm with ( 4x3 cm , and 1x1 cm . ) with mm surrounding erythema ASSESSMENT AND PLAN: 25 y/o man withh/o Asthma who presented after being found down, he was found to be in DKA, developed Acute resp failure , an also was found tohave metabolic acidosis, LFTs abnormalities and eleated lipase. 1- Acute resp failure: PNA vs ARDS - ABG improved on vent , - give another dose of vanco today - cont zosyn - monitor for mental status recovery off sedation 2- DKA : resolved , AG closed. - cont long acting insulin and SSI q 4 hr . levemir and SSI doses increased last night , will not change today 3- Metabolic acidosis: resolved - off bicarb gtt - methanol and ethylin glycol levels pending 4- Hypernatremia : not responding to free water . ? diabetes insipidus - will check urine Na and urine Osm - will discuss with renal 5-Severe Sepsis/septic shock resolved : source could be PNA . - cont zosyn . give another dose of vanco today 6- SEAN vs CKD : improved cr. cont to monitor . renal US NL 7- Transaminitis ; likely due to sepsis , hypotension ,alcohol , ilicit drugs and medications (sedatives and Abx ) . monitor ceruloplasmin pending 8- Possible acute pancreatitis : received IVF , now being fed 9- Normocytic anemia : no evidence of active bleeding . and haptoglobin is NL indicating no hemolysis . - iron studies don't indicate iron def anemia. ferritin is elevated , likely due to active inflammation /infection 10 - DIC : likely due to severe sepsis. Not sure if ingestion has contributed. - resolved now ICU level of care
--- NOTE | 2016-09-25 15:18 | PN ---
Physical Exam: SUBJECTIVE: Patient seen and examined at bedside. Family at bedside febrile overnight Tmax 100.4 THis afternoon had a few runs of Vtach Sedation held for anout 24 hours now and minimal imporvemtn in mental status- likely from being on such high doses of versed in combination with renal dysfunction will make cause him to clear the versed very slowly OBJECTIVE: Vital Signs Period Temp Pulse Resp BP Sys/Gould Pulse Ox Last 24 Hr 98.7 F-100.4 F 87-112 14-25 125-148/71-97 98-99 GENERAL: Intubated sedated. HEAD: Normal with no signs of trauma. EYES: Pupils equal, round and reactive to light, Sclera anicteric, Conjunctiva clear EARS, NOSE, THROAT:Moist mucous membranes. NECK: No JVD. Central line in place no surrounding erythema LUNGS: . Bronchial breath sounds coarse breath sounds bilaterally. Intubated. HEART: RRR S1 S2 no murmurs rubs or gallops ABDOMEN: Soft, nontender, not distended UPPER EXTREMITIES: warm, well-perfused. 1+ pitting edema. on the right forearm there are 2 area of what appears to be necrosis with surrounding erythema LOWER EXTREMITIES: warm, well-perfused. Trace non pitting edema NEURO: opens eyes to voice and painful stimulus : arnold in place Laboratory Results - last 24 hr 09/23/16 09/23/16 09/24/16 12:25 17:15 17:05 WBC RBC Hgb Hct MCV MCHC RDW Plt Count MPV Neutrophils % Lymphocytes % Monocytes % Eosinophils % Band Neutrophils Nucleated RBCs Differential Comment Platelet Estimate INR PTT (Actin FS) Puncture Site ABG pH ABG pCO2 at Pt Temp ABG pO2 at Pt Temp ABG HCO3 ABG O2 Sat (Measured) ABG O2 Content ABG Base Excess Dennis Test O2 Delivery Device Oxygen Flow Rate Vent Mode Vent Rate Mechanical Rate PEEP Pressure Support Vent Sodium Potassium Chloride Carbon Dioxide Anion Gap BUN Creatinine Creat Clearance w eGFR POC Glucometer [phone] Random Glucose Calcium Phosphorus Magnesium Iron 10 L TIBC 92 L Iron Saturation 11 L Total Bilirubin AST ALT Alkaline Phosphatase LD Total Total Protein Albumin Ceruloplasmin 33.6 H Random Vancomycin 09/24/16 09/25/16 09/25/16 22:02 05:15 05:15 WBC 4.2 RBC 2.96 L Hgb 9.0 L Hct 26.7 L MCV 90.5 MCHC 33.5 RDW 15.3 Plt Count 150 D MPV 9.6 Neutrophils % 50.0 D Lymphocytes % 32.0 D Monocytes % 14.0 H Eosinophils % 2.0 Band Neutrophils 2.0 Nucleated RBCs 1 H Differential Comment Manual diff done Platelet Estimate Adequate INR 1.02 PTT (Actin FS) 40.7 H Puncture Site ABG pH ABG pCO2 at Pt Temp ABG pO2 at Pt Temp ABG HCO3 ABG O2 Sat (Measured) ABG O2 Content ABG Base Excess Dennis Test O2 Delivery Device Oxygen Flow Rate Vent Mode Vent Rate Mechanical Rate PEEP Pressure Support Vent Sodium Potassium Chloride Carbon Dioxide Anion Gap BUN Creatinine Creat Clearance w eGFR POC Glucometer [phone] Random Glucose Calcium Phosphorus Magnesium Iron TIBC Iron Saturation Total Bilirubin AST ALT Alkaline Phosphatase LD Total Total Protein Albumin Ceruloplasmin Random Vancomycin 09/25/16 09/25/16 09/25/16 05:15 07:15 10:17 WBC RBC Hgb Hct MCV MCHC RDW Plt Count MPV Neutrophils % Lymphocytes % Monocytes % Eosinophils % Band Neutrophils Nucleated RBCs Differential Comment Platelet Estimate INR PTT (Actin FS) Puncture Site Right radial ABG pH 7.38 ABG pCO2 at Pt Temp 42.9 ABG pO2 at Pt Temp 120.0 H D ABG HCO3 24.8 ABG O2 Sat (Measured) 98.6 ABG O2 Content 17.2 ABG Base Excess 0.1 Dennis Test Positive O2 Delivery Device Ventilator Oxygen Flow Rate 40% Vent Mode A/c Vent Rate 16 Mechanical Rate Yes PEEP 5.0 Pressure Support Vent 450 Sodium 158 H Potassium 4.0 Chloride 126 H Carbon Dioxide 25 Anion Gap 7 L BUN 30 H Creatinine 2.3 H Creat Clearance w eGFR 35.11 POC Glucometer [phone] Random Glucose 237 H Calcium 7.4 L Phosphorus 2.4 L D Magnesium 2.5 H Iron TIBC Iron Saturation Total Bilirubin 0.3 D AST 35 D ALT 66 D Alkaline Phosphatase 339 H LD Total 302 H Total Protein 5.1 L Albumin 1.5 L Ceruloplasmin Random Vancomycin 15.587 09/25/16 09/25/16 12:14 14:47 WBC RBC Hgb Hct MCV MCHC RDW Plt Count MPV Neutrophils % Lymphocytes % Monocytes % Eosinophils % Band Neutrophils Nucleated RBCs Differential Comment Platelet Estimate INR PTT (Actin FS) Puncture Site ABG pH ABG pCO2 at Pt Temp ABG pO2 at Pt Temp ABG HCO3 ABG O2 Sat (Measured) ABG O2 Content ABG Base Excess Dennis Test O2 Delivery Device Oxygen Flow Rate Vent Mode Vent Rate Mechanical Rate PEEP Pressure Support Vent Sodium Potassium Chloride Carbon Dioxide Anion Gap BUN Creatinine Creat Clearance w eGFR POC Glucometer [phone] Random Glucose Calcium Phosphorus Magnesium Iron TIBC Iron Saturation Total Bilirubin AST ALT Alkaline Phosphatase LD Total Total Protein Albumin Ceruloplasmin Random Vancomycin Active Medications Generic Name Dose Route Start Last Admin Trade Name Freq PRN Reason Stop Dose Admin Albuterol/Ipratropium 1 amp 09/22/16 12:15 09/25/16 11:05 Duoneb - NEB 1 amp QIDR [facility] Administration Artificial Tears 1 applic 09/23/16 10:00 09/25/16 09:59 Lacri-Lube Eye Ointment - OU 1 applic BID [facility] Administration Chlorhexidine Gluconate 1 applic 09/18/16 22:00 09/24/16 21:51 Hibiclens For Decolonization - TP 1 applic HS SILVER Administration Heparin Sodium (Porcine) 5,000 unit 09/23/16 14:00 09/25/16 14:50 Heparin - SQ 5,000 unit TID [facility]IL[facility] Administration IV Flush 4 ml 09/18/16 20:31 09/23/16 13:30 Triple Lumen Flush IVPUSH 4 ml PRN PRN Administration Protocol Propofol 100 mls @ 2.722 mls/hr 09/18/16 15:00 09/24/16 18:44 Diprivan - IVPB Not Given TITR SIL[facility] Protocol 5 MCG/KG/MIN Famotidine/Sodium Chloride 50 mls @ 100 mls/hr 09/19/16 10:00 09/25/16 09:57 Pepcid 20 Mg Premixed Ivpb - IVPB 100 mls/hr BID SILVER Administration Fentanyl 500 mcg/ Dextrose 100 mls @ 10 mls/hr 09/19/16 01:30 09/25/16 02:23 IVPB Not Given TITR SILVER 50 MCG/HR Midazolam HCl 100 mg/ Sodium 100 mls @ 1 mls/hr 09/19/16 09:30 09/24/16 06:56 Chloride IVPB 10 mls/hr TITR SILVER Administration Protocol 1 MG/HR Piperacillin Sod/Tazobactam Sod 50 mls @ 100 mls/hr 09/20/16 09:00 09/25/16 09: 57 Zosyn 3.375gm Ivpb (Pre-Docked) IVPB 100 mls/hr Q8H-IV [facility] Administration Protocol Insulin Aspart 1 vial 09/25/16 14:00 09/25/16 14:52 Novolog Vial Sliding Scale - SQ 18 units Q4HWA [facility] Administration Protocol Insulin Detemir 25 units 09/24/16 22:00 09/24/16 22:06 Levemir Vial SQ 25 units HS [facility] Administration Potassium Chloride 40 meq 09/23/16 10:00 09/25/16 09:57 Potassium Chloride Oral Liquid PO 40 meq BID [facility] Administration Thiamine HCl 200 mg 09/19/16 10:00 09/25/16 09:58 Vitamin B1 Injection - IVPB 200 mg DAILY [facility] Administration ASSESSMENT/PLAN: 25M found down with no PMH of DM presents to the ED unresponsive in DKA and severe sepsis. Diabetic ketoacidosis: patient has likely been a diabetic for a long time and has been undiagnosed and this is his initial presentation of DKA from untreated type 1 DM bicarb gtt stopped AG closed BGM better controlled today sliding scale [id number] tightened per endocrinology and levemir increased to 25 units HS Endocrinology consult appreciated recommendations noted replete potassium aggressively PRN will need outpatient follow up with ophthalmology and podiatry HbA1C 12.9 Septic shock: tachycardic hypothermic on presentation now febrile leukocytosis on presentation now resolved with acute kidney injury lactic acidosis. requiring pressors which he no longer requires. Sputum Cx growing MRSA. Septic shock resolved. MRSA pneumonia URI infection per family prior to presentation Pressors stopped remains febrile despite cooling blanket fever curve continue to improve Sputum Cx-prelim yeast like organisms MRSA Will give another one dose of vancomycin 1.5gm and check level in AM. Dsse by level given renal failure. Vancomycin random level 15.5 today BCx no growth so far UCx-no growth final continue Zosyn CSF cultures negative patient is having multi-organ failure If fever does notm improve ID plans to stop ABx but would CT chest before stopping ABx Acute respiratory failure: from DKA sepsis/MRSA PNA CXR shows improved aeration Respiratory status improving as he is oxygenating better on the same vent settings intubated ventilatory support ABG improved from admission continue ABx Possible seizure activity when sedation is held possible withdrawals from alcohol neurology consult appreciated sedation held to evaluate mental status-mental status slightly improved as he opens eyes to painful stimulus and opened his eyes to his name Thrombocytopenia: possible related to HIT vs sepsis Improving continues to trend upward HIT Ab -negative Hematology consult-Dr. Fernandez appreciated-antiphospholipid work up pending hypercoagulable work up pending a whole array of hematology labs sent and pending will follow up No DVT on US duplex haptoglobin WNL LDH repeat only slightly elevated-not consistent with TTP/HUS restart HSQ Superficial thrombophlebitis: repeat US of bilateral upper extremities shows worsening superficial thrombosis just observe for now no indication to treat Ventricular tachycardia: Had an episode of Vtach on the monitor today trend Troponins EKG was NSR and non ichemic ECHO showed no wall motion abnormalities and normal EF DIC: patient was likely in DIC on presentation as he had low fibrinogen and increased fibrin degredation products and area of skin necrosis. Fibrinogen now back to normal likely from sepsis Dermatology consult requested by Dr. Mart for area of necrosis over right forearm resolved lactic acidosis: resolved from sepsis and DKA Microcytic anemia: Iron studies are not consistent with Iron deficiency anemia but consistent with anemia of chronic disease B12 high Folate WNL polysubstance abuse: family now giving information that he was sniffing glue in addition to doing cocaine and drinking alcohol Will need counselling when extubated consider rehab Metabolic acidosis: resolved DKA resolved but remains acidotic will send methanol level and ethylene glycol level-pending but unlikely that they will be elevated as the window for them to show up positive has passed off Bicarb gtt Acute renal failure/Acute kidney injury:possible he has chronic renal failure given the fact his renal function is not improving Nephrology consult appreciated Cr 2.3-essental unchanged may be new baseline Complements C3 C4 CLARICE M spike C anca P anca DS DNA ANCA Atypical P anca myeloperoxidase all negative not improving with hydration-stop IVF Trend Cr-slightly improved today avoid nephrotoxic drugs we were considering HUS but given haptoglobin normal and no evidence of hemolysis it is unlikely called hematology lab to do a peripheral smear-some schistocytes and anisocytosis but not consistent with HUS given normal Haptoglobin and LDH coming down will recheck LDH as it was elevated but it could also be elevate due to other reasons such as sepsis f/u stool studies for E. COli [id number] Transaminitis/questionable history of Liver disease: AST/ALT normalized ALK Phos elevated transaminitis likely from shock liver from hypoperfusion vs alcoholic liver disease vs ingestion of toxic substances GI consult appreciated-will send serum copper and ceruloplasmin levels to r/o wilsons disease-pending Liver US showed fatty liver likely from alcoholism vs obesity will need more history from the patient when he is stable alert and awake CTAP-no acute pancreatic pathology or any other acute pathology Pancreatitis:no CT scan evidence and patient not awake to give us history. Lipase elevated on admission Lipase level now back to normal already had GI rest and aggressive IVF continue tube feeds Hematuria: from traumatic arnold insertion and DIC resolved Hypernatremia:patient intially has pseudohyponatremia from hyperglycemia as corrected sodium was normal now patient is hypernatremic stop IVF increase free water per renal repeat sodium sodium 158 today which is worsened despite increasing free water we will do a urine osmolality and urine sodium to rule out diabetes insipidus although unlikely. If labs are consistent with Diabetes insipidus will give a dose of DDAVP to see response Asthma: intubated at this time will address this if it is active once stable FEN: off IVFfree water through NGT replete potassium for hypokalemia while on insulin gtt keep K+>4.0. hypernatremia see above for plan Promote TF @ 55ml/hr @ goal PPx: SCDs/HSQ Pepcid No PT consult at this time CCT 60 minutes including update given to family ICU care Guarded prognosis Visit type - Emergency Visit Emergency Visit: Yes ED Registration Date: 09/18/16 Care time: The patient presented to the Emergency Department on the above date and was hospitalized for further evaluation of their emergent condition. - New Patient This patient is new to me today: No - Critical Care Critical Care patient: Yes Total Critical Care Time (in minutes): 60 Critical Care Statement: The care of this patient involved high complexity decision making to prevent further life threatening deterioration of the patient 's condition and/or to evalute & treat vital organ system(s) failure or risk of failure.
--- NOTE | 2016-09-25 15:22 | PN ---
GI Progress Note Subjective: GI NOte: Although sedation was stopped over a day ago Guy's mental status remains very lethargic. - Objective Vital Signs: Vital Signs Temperature 98.8 F 09/25/16 10:00 Pulse Rate 96 H 09/25/16 12:00 Respiratory Rate 20 09/25/16 14:10 Blood Pressure 133/82 09/25/16 12:00 O2 Sat by Pulse Oximetry (%) 99 09/25/16 10:25 Laboratory Tests 09/18/16 09/18/16 09/18/16 14:00 14:00 18:00 Plt Count 294 ABG pH Calcium 8.1 L 6.3 L* D Total Bilirubin AST 60 H ALT 115 H Alkaline Phosphatase 172 H Albumin 3.5 Total Amylase Lipase 09/18/16 09/18/16 09/19/16 20:00 20:25 06:05 Plt Count ABG pH 6.86 L* Calcium Total Bilirubin AST 100 H D 60 H ALT Alkaline Phosphatase Albumin Total Amylase Lipase 09/19/16 09/19/16 09/19/16 06:05 11:14 16:10 Plt Count ABG pH Calcium Total Bilirubin AST ALT 80 H Alkaline Phosphatase 97 Albumin Total Amylase 266 H Lipase 1921 H 09/20/16 09/20/16 09/20/16 05:40 05:40 05:40 Plt Count ABG pH Calcium Total Bilirubin AST 53 H D ALT 76 Alkaline Phosphatase Albumin Total Amylase 98 D Lipase 262 09/21/16 09/21/16 09/21/16 04:20 04:20 07:15 Plt Count 90 L D ABG pH 7.37 Calcium 7.0 L Total Bilirubin AST 389 H D ALT 165 H D Alkaline Phosphatase 175 H D Albumin 1.6 L Total Amylase Lipase 09/23/16 09/24/16 09/25/16 05:15 06:00 05:15 Plt Count ABG pH Calcium Total Bilirubin 0.3 D AST 35 D ALT 66 D Alkaline Phosphatase 319 H 325 H 339 H Albumin 1.5 L Total Amylase Lipase Constitutional: Other (barely responsive) ...Auscultate: Yes: Hypoactive Bowel Sounds ...Palpate: Yes: Soft, Other (nontender) Labs: CBC, BMP 09/25/16 05:15 INR, PTT INR 1.02 (0.82-1.09) 04/21/17 05:15 Fibrinogen > 700.0 mg/dL (238-498) H 09/23/16 15:35 Assessment/Plan Toxic metabolic picture persists. Transaminases are normalizing. The wide alkaline phosphatase fluctuations suggest passage of sludge as drug effect is usually more persistent. Buddy check GGT. Dr Atilio parra be covering this weekend . Please call him as needed.
[2016-09-25 15:24] LABS: CALCIUM 7.7 mg/dL (8.5-10.1); COCKROFT - GAULT 68.45; CREATININE 2.3 mg/dL (0.7-1.3); PHOSPHOROUS 2.2 mg/dL (2.5-4.9)
[2016-09-25 16:37] LABS: TROPONIN I 0.02 ng/ml (0.00-0.05)
--- NOTE | 2016-09-25 16:40 | PN ---
Progress Note, Physician History of Present Illness: Pt seen and examined at bedside. He remains in the ICU intubated. - Current Medication List Current Medications: Active Medications Albuterol/Ipratropium (Duoneb -) 1 amp NEB QIDR [facility] Last Admin: 09/25/16 11:05 Dose: 1 amp Artificial Tears (Lacri-Lube Eye Ointment -) 1 applic OU BID SIL[facility] Last Admin: 09/25/16 09:59 Dose: 1 applic Chlorhexidine Gluconate (Hibiclens For Decolonization -) 1 applic TP HS [facility] Last Admin: 09/24/16 21:51 Dose: 1 applic Heparin Sodium (Porcine) (Heparin -) 5,000 unit SQ TID [facility] Last Admin: 09/25/16 14:50 Dose: 5,000 unit IV Flush (Triple Lumen Flush) 4 ml IVPUSH PRN PRN PRN Reason: Protocol Last Admin: 09/23/16 13:30 Dose: 4 ml Propofol (Diprivan -) 100 mls @ 2.722 mls/hr IVPB TITR SILVER; 5 MCG/KG/MIN PRN Reason: Protocol Last Admin: 09/24/16 18:44 Dose: Not Given Famotidine/Sodium Chloride (Pepcid 20 Mg Premixed Ivpb -) 50 mls @ 100 mls/hr IVPB BID [facility] Last Admin: 09/25/16 09:57 Dose: 100 mls/hr Fentanyl 500 mcg/ Dextrose 100 mls @ 10 mls/hr IVPB TITR SILVER PRN Reason: 50 MCG/HR Last Admin: 09/25/16 02:23 Dose: Not Given Midazolam HCl 100 mg/ Sodium (Chloride) 100 mls @ 1 mls/hr IVPB TITR SILVER; 1 MG/ HR PRN Reason: Protocol Last Admin: 09/24/16 06:56 Dose: 10 mls/hr Piperacillin Sod/Tazobactam Sod (Zosyn 3.375gm Ivpb (Pre-Docked)) 50 mls @ 100 mls/hr IVPB Q8H-IV [facility]IL[facility] PRN Reason: Protocol Last Admin: 09/25/16 09:57 Dose: 100 mls/hr Potassium Phosphate 15 mm/ (Dextrose) 255 mls @ 62.5 mls/hr IVPB ONCE ONE Stop: 09/25/16 20:07 Insulin Aspart (Novolog Vial Sliding Scale -) 1 vial SQ Q4HWA [facility] PRN Reason: Protocol Last Admin: 09/25/16 14:52 Dose: 18 units Insulin Detemir (Levemir Vial) 25 units SQ HS [facility] Last Admin: 09/24/16 22:06 Dose: 25 units Potassium Chloride (Potassium Chloride Oral Liquid) 40 meq PO BID [facility] Last Admin: 09/25/16 09:57 Dose: 40 meq Thiamine HCl (Vitamin B1 Injection -) 200 mg IVPB DAILY [facility] Last Admin: 09/25/16 09:58 Dose: 200 mg - Objective Vital Signs: Vital Signs Temperature 98.5 F 09/25/16 14:00 Pulse Rate 92 H 09/25/16 14:00 Respiratory Rate 20 09/25/16 14:10 Blood Pressure 142/68 09/25/16 14:00 O2 Sat by Pulse Oximetry (%) 99 09/25/16 10:25 Constitutional: Yes: Calm Eyes: Yes: Conjunctiva Clear Cardiovascular: Yes: S1, S2 Respiratory: Yes: Mechanically Ventilated Gastrointestinal: Yes: Soft, Abdomen, Obese Genitourinary: Yes: Kelly Present Musculoskeletal: Yes: Muscle Weakness Edema: Yes Edema: LLE: 1+, RLE: 1+ Neurological: Yes: Other (sedated) Labs: CBC, BMP 09/25/16 05:15 09/25/16 14:00 INR, PTT INR 1.02 (0.82-1.09) 09/25/16 05:15 Fibrinogen > 700.0 mg/dL (238-498) H 09/23/16 15:35 - ....Imaging X-ray: Report Reviewed Ultrasound: Report Reviewed Problem List - Problems (1) Acute renal insufficiency Code(s): N28.9 - DISORDER OF KIDNEY AND URETER, UNSPECIFIED (2) Altered mental status Code(s): R41.82 - ALTERED MENTAL STATUS, UNSPECIFIED Qualifiers: Altered mental status type: stupor Qualified Code(s): R40.1 - Stupor (3) Lactic acidosis Code(s): E87.2 - ACIDOSIS (4) Leukocytosis Code(s): D72.829 - ELEVATED WHITE BLOOD CELL COUNT, UNSPECIFIED (5) Respiratory failure Code(s): J96.90 - RESPIRATORY FAILURE, UNSP, UNSP W HYPOXIA OR HYPERCAPNIA Assessment/Plan Current Medications Generic Name Dose Route Start Last Admin Trade Name Freq PRN Reason Stop Dose Admin Albuterol/Ipratropium 1 amp 09/22/16 12:15 09/25/16 11:05 Duoneb - NEB 1 amp QIDR SILVER Administration Artificial Tears 1 applic 09/23/16 10:00 09/25/16 09:59 Lacri-Lube Eye Ointment - OU 1 applic BID SILVER Administration Chlorhexidine Gluconate 1 applic 09/18/16 22:00 09/24/16 21:51 Hibiclens For Decolonization - TP 1 applic HS SILVER Administration Heparin Sodium (Porcine) 5,000 unit 09/23/16 14:00 09/25/16 14:50 Heparin - SQ 5,000 unit TID SILVER Administration IV Flush 4 ml 09/18/16 20:31 09/23/16 13:30 Triple Lumen Flush IVPUSH 4 ml PRN PRN Administration Protocol Propofol 100 mls @ 2.722 mls/hr 09/18/16 15:00 09/24/16 18:44 Diprivan - IVPB Not Given TITR SILVER Protocol 5 MCG/KG/MIN Famotidine/Sodium Chloride 50 mls @ 100 mls/hr 09/19/16 10:00 09/25/16 09:57 Pepcid 20 Mg Premixed Ivpb - IVPB 100 mls/hr BID SILVER Administration Fentanyl 500 mcg/ Dextrose 100 mls @ 10 mls/hr 09/19/16 01:30 09/25/16 02:23 IVPB Not Given TITR SILVER 50 MCG/HR Midazolam HCl 100 mg/ Sodium 100 mls @ 1 mls/hr 09/19/16 09:30 09/24/16 06:56 Chloride IVPB 10 mls/hr TITR SILVER Administration Protocol 1 MG/HR Piperacillin Sod/Tazobactam Sod 50 mls @ 100 mls/hr 09/20/16 09:00 09/25/16 09: 57 Zosyn 3.375gm Ivpb (Pre-Docked) IVPB 100 mls/hr Q8H-IV [facility] Administration Protocol Potassium Phosphate 15 mm/ 255 mls @ 62.5 mls/hr 09/25/16 16:03 Dextrose IVPB 09/25/16 20:07 ONCE ONE Insulin Aspart 1 vial 09/25/16 14:00 09/25/16 14:52 Novolog Vial Sliding Scale - SQ 18 units Q4HWA [facility] Administration Protocol Insulin Detemir 25 units 09/24/16 22:00 09/24/16 22:06 Levemir Vial SQ 25 units HS [facility] Administration Potassium Chloride 40 meq 09/23/16 10:00 09/25/16 09:57 Potassium Chloride Oral Liquid PO 40 meq BID [facility]IL[facility] Administration Thiamine HCl 200 mg 09/19/16 10:00 09/25/16 09:58 Vitamin B1 Injection - IVPB 200 mg DAILY [facility] Administration Impression 1. SEAN 2. metabolic acidosis 3. gross hematuria 4. DKA 5. sepsis 6. lactic acidosis 7. acute respiratory failure requiring intubation 8. etoh abuse - active 9. 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 Goal for tomorrow is a serum sodium of about 148 which would require about 3.95 liters of free water - discussed with ICU team - stop sedation daily and asses mental status - renal ultrasound reviewed - renal function is improving - cont vent support - workup is in progress Dr Espinoza
[2016-09-25] MEDS: PROPOFOL 100 ML IVPB SCH (17:07)
[2016-09-25] MEDS ORDERED: POTASSIUM PHOSPHATE 15 MM in DEXTROSE 5%-WATER - 250 ML IVPB ONE (17:15)
[2016-09-25] MEDS: INSULIN DETEMIR 100 UNITS/ML MDV SQ SCH (22:27)
[2016-09-25] MEDS: CHLORHEXIDINE GLUCONATE 4% CLEANSER FOR DECOLONIZATION TP SCH (22:29)
[2016-09-26 00:01] LABS: TROPONIN I < 0.02 ng/ml (0.00-0.05)
[2016-09-26 00:07] LABS: COPPER/CRT RATIO 124 ug/g creat (0-49)
[2016-09-26] MEDS: PIPERACILLIN/TAZOB 3.375 GM 50 ML IVPB SCH ×3 (02:58→17:07)
[2016-09-26] MEDS: FENTANYL INJECTION 500 MCG in DEXTROSE 5%-WATER - 90 ML IVPB SCH (02:58)
[2016-09-26 04:54] LABS: BASOPHIL 0.5 % (0-2.0); EOSINOPHIL 2.1 % (0-4.5); MCH 30.3 pg (25.7-33.7); MCHC 33.4 g/dl (32.0-35.9); MEAN CELL VOLUME 90.9 fl (80-96); MEAN PLT VOLUME 9.4 fl (7.5-11.1); NEUTROPHILS 57.9 % (42.8-82.8); PLATELET COUNT 158 K/MM3 (134-434); RDW 14.9 % (11.9-15.9); WHITE BLOOD COUNT 5.3 K/mm3 (4.0-10.0)
[2016-09-26 05:06] LABS: INR 1.04 (0.82-1.09); PROTHROMBIN TIME (PATIENT) 11.5 SEC (9.98-11.88)
[2016-09-26 05:17] LABS: ALBUMIN 1.6 g/dl (3.4-5.0); BILIRUBIN,DIRECT 0.1 mg/dL (0.0-0.2); BILIRUBIN,TOTAL 0.3 mg/dL (0.2-1.0); CALCIUM 7.9 mg/dL (8.5-10.1); COCKROFT - GAULT 68.45; CREATININE 2.3 mg/dL (0.7-1.3); MAGNESIUM 2.4 mg/dL (1.8-2.4); PHOSPHOROUS 3.2 mg/dL (2.5-4.9); TOT PROT 5.1 g/dl (6.4-8.2)
[2016-09-26] MEDS ORDERED: HEMOQUE TEST 1 EACH EACH ONE (06:01)
[2016-09-26] MEDS: HEPARIN NA (PORCINE) 5,000 UNITS/ML 1ML VIAL SQ SCH ×3 (06:05→21:42)
[2016-09-26] MEDS: INSULIN SLIDING SCALE (NOVOLOG) 1 VIAL SQ SCH ×5 (06:10→21:43)
[2016-09-26] MEDS: ALBUTEROL SO4 2.5/IPRATROPIUM 0.5 INH SOL 3 ML VIAL.NEB. NEB SCH ×4 (06:25→23:02)
[2016-09-26 07:36] LABS: ALLENS TEST POSITIVE; ART PUNCT SITE RIGHT RADIAL; ARTERIAL BLD GAS O2 SATURATION 98.8 % (90-98.9); ARTERIAL BLOOD GAS HCO3 24.8 meq/L (22-26); ARTERIAL BLOOD GAS pH 7.43 (7.35-7.45); LPM/O2% 40%; PT. ON O2? YES; TYPE OF O2 VENT
[2016-09-26 07:37] LABS: MECH. VENT. YES; VENT RATE 16; VT/PRESS 450
[2016-09-26] MEDS ORDERED: INSULIN DETEMIR 100 UNITS/ML MDV SQ SCH (08:11)
--- NOTE | 2016-09-26 08:19 | PN ---
Progress Note (short form) - Note Progress Note: Subjective: no events over night Objective: Vital Signs: Last Vital Signs Temp Pulse Resp BP Pulse Ox 99.1 F 87 18 157/105 99 09/26/16 04:00 09/26/16 06:00 09/26/16 06:25 09/26/16 06:00 09/25/16 19:35 Laboratory Results - last 24 hr 09/24/16 09/24/16 09/24/16 05:45 05:45 10:00 WBC RBC Hgb Hct MCV MCHC RDW Plt Count MPV Neutrophils % Lymphocytes % Monocytes % Eosinophils % Basophils % Band Neutrophils Nucleated RBCs Differential Comment Platelet Estimate INR PTT (Actin FS) Puncture Site ABG pH ABG pCO2 at Pt Temp ABG pO2 at Pt Temp ABG HCO3 ABG O2 Sat (Measured) ABG O2 Content ABG Base Excess Dennis Test O2 Delivery Device Oxygen Flow Rate Vent Mode Vent Rate Mechanical Rate PEEP Pressure Support Vent Sodium Potassium Chloride Carbon Dioxide Anion Gap BUN Creatinine Creat Clearance w eGFR POC Glucometer Random Glucose Calcium Phosphorus Magnesium Total Bilirubin Direct Bilirubin GGT AST ALT Alkaline Phosphatase Creatine Kinase Creatine Kinase Index CK-MB (CK-2) CK-MB (CK-2) Rel Index Troponin I Total Protein Albumin Urine Creatinine Cancelled 0.37 Random Vancomycin Serum Copper 117 Urine Copper Cancelled 46 Ur Copper 24 Hr Cancelled 285 H Ur Copper/Creat Ratio Cancelled 124 H Smooth Musc &[employer] Intrp 11 09/24/16 09/25/16 09/25/16 22:02 05:15 10:17 WBC RBC Hgb Hct MCV MCHC RDW Plt Count MPV Neutrophils % 50.0 D Lymphocytes % 32.0 D Monocytes % 14.0 H Eosinophils % 2.0 Basophils % Band Neutrophils 2.0 Nucleated RBCs 1 H Differential Comment Manual diff done Platelet Estimate Adequate INR PTT (Actin FS) Puncture Site ABG pH ABG pCO2 at Pt Temp ABG pO2 at Pt Temp ABG HCO3 ABG O2 Sat (Measured) ABG O2 Content ABG Base Excess Dennis Test O2 Delivery Device Oxygen Flow Rate Vent Mode Vent Rate Mechanical Rate PEEP Pressure Support Vent Sodium Potassium Chloride Carbon Dioxide Anion Gap BUN Creatinine Creat Clearance w eGFR POC Glucometer [phone] Random Glucose Calcium Phosphorus Magnesium Total Bilirubin Direct Bilirubin GGT AST ALT Alkaline Phosphatase Creatine Kinase Creatine Kinase Index CK-MB (CK-2) CK-MB (CK-2) Rel Index Troponin I Total Protein Albumin Urine Creatinine Random Vancomycin Serum Copper Urine Copper Ur Copper 24 Hr Ur Copper/Creat Ratio Sm[employer] Intrp 09/25/16 09/25/16 09/25/16 12:14 14:00 14:00 WBC RBC Hgb Hct MCV MCHC RDW Plt Count MPV Neutrophils % Lymphocytes % Monocytes % Eosinophils % Basophils % Band Neutrophils Nucleated RBCs Differential Comment Platelet Estimate INR PTT (Actin FS) Puncture Site ABG pH ABG pCO2 at Pt Temp ABG pO2 at Pt Temp ABG HCO3 ABG O2 Sat (Measured) ABG O2 Content ABG Base Excess Dennis Test O2 Delivery Device Oxygen Flow Rate Vent Mode Vent Rate Mechanical Rate PEEP Pressure Support Vent Sodium 158 H Potassium 4.1 Chloride 127 H Carbon Dioxide 26 Anion Gap 5 L BUN 32 H Creatinine 2.3 H Creat Clearance w eGFR POC Glucometer [phone] Random Glucose 234 H Calcium 7.7 L Phosphorus 2.2 L Magnesium Total Bilirubin Direct Bilirubin GGT AST ALT Alkaline Phosphatase Creatine Kinase 120 Cancelled Creatine Kinase Index CK-MB (CK-2) CK-MB (CK-2) Rel Index Troponin I 0.02 D Cancelled Total Protein Albumin Urine Creatinine Random Vancomycin Serum Copper Urine Copper Ur Copper 24 Hr Ur Copper/Creat Ratio [employer] Intrp 09/25/16 09/25/16 09/25/16 14:47 17:49 22:20 WBC RBC Hgb Hct MCV MCHC RDW Plt Count MPV Neutrophils % Lymphocytes % Monocytes % Eosinophils % Basophils % Band Neutrophils Nucleated RBCs Differential Comment Platelet Estimate INR PTT (Actin FS) Puncture Site ABG pH ABG pCO2 at Pt Temp ABG pO2 at Pt Temp ABG HCO3 ABG O2 Sat (Measured) ABG O2 Content ABG Base Excess Dennis Test O2 Delivery Device Oxygen Flow Rate Vent Mode Vent Rate Mechanical Rate PEEP Pressure Support Vent Sodium Potassium Chloride Carbon Dioxide Anion Gap BUN Creatinine Creat Clearance w eGFR POC Glucometer [phone] [phone] Random Glucose Calcium Phosphorus Magnesium Total Bilirubin Direct Bilirubin GGT AST ALT Alkaline Phosphatase Creatine Kinase Creatine Kinase Index CK-MB (CK-2) CK-MB (CK-2) Rel Index Troponin I Total Protein Albumin Urine Creatinine Random Vancomycin Serum Copper Urine Copper Ur Copper 24 Hr Ur Copper/Creat Ratio [employer] Intrp 09/25/16 09/25/16 09/25/16 22:55 22:55 22:55 WBC RBC Hgb Hct MCV MCHC RDW Plt Count MPV Neutrophils % Lymphocytes % Monocytes % Eosinophils % Basophils % Band Neutrophils Nucleated RBCs Differential Comment Platelet Estimate INR PTT (Actin FS) Puncture Site ABG pH ABG pCO2 at Pt Temp ABG pO2 at Pt Temp ABG HCO3 ABG O2 Sat (Measured) ABG O2 Content ABG Base Excess Dennis Test O2 Delivery Device Oxygen Flow Rate Vent Mode Vent Rate Mechanical Rate PEEP Pressure Support Vent Sodium 158 H Potassium 3.9 Chloride 124 H Carbon Dioxide 26 Anion Gap BUN Creatinine Creat Clearance w eGFR POC Glucometer Random Glucose Calcium Phosphorus Magnesium Total Bilirubin Direct Bilirubin GGT AST ALT Alkaline Phosphatase Creatine Kinase 169 D Creatine Kinase Index Y CK-MB (CK-2) < 1.000 CK-MB (CK-2) Rel Index Cancelled Troponin I < 0.02 Total Protein Albumin Urine Creatinine Random Vancomycin Serum Copper Urine Copper Ur Copper 24 Hr Ur Copper/Creat Ratio [facility] Intrp 09/26/16 09/26/16 09/26/16 04:00 04:00 04:00 WBC 5.3 RBC 2.94 L Hgb 8.9 L Hct 26.7 L MCV 90.9 MCHC 33.4 RDW 14.9 Plt Count 158 MPV 9.4 Neutrophils % 57.9 Lymphocytes % 26.5 Monocytes % 13.0 H Eosinophils % 2.1 Basophils % 0.5 Band Neutrophils Nucleated RBCs Differential Comment Platelet Estimate INR 1.04 PTT (Actin FS) Puncture Site ABG pH ABG pCO2 at Pt Temp ABG pO2 at Pt Temp ABG HCO3 ABG O2 Sat (Measured) ABG O2 Content ABG Base Excess Dennis Test O2 Delivery Device Oxygen Flow Rate Vent Mode Vent Rate Mechanical Rate PEEP Pressure Support Vent Sodium 156 H Potassium 4.2 Chloride 122 H Carbon Dioxide 27 Anion Gap 7 L BUN 34 H Creatinine 2.3 H Creat Clearance w eGFR 35.11 POC Glucometer Random Glucose 241 H Calcium 7.9 L Phosphorus 3.2 D Magnesium 2.4 Total Bilirubin 0.3 Direct Bilirubin 0.1 D GGT 864 H AST 29 ALT 49 D Alkaline Phosphatase 307 H Creatine Kinase Creatine Kinase Index CK-MB (CK-2) CK-MB (CK-2) Rel Index Troponin I Total Protein 5.1 L Albumin 1.6 L Urine Creatinine Random Vancomycin Serum Copper Urine Copper Ur Copper 24 Hr Ur Copper/Creat Ratio [employer] Intrp 09/26/16 09/26/16 09/26/16 04:00 04:00 06:03 WBC RBC Hgb Hct MCV MCHC RDW Plt Count MPV Neutrophils % Lymphocytes % Monocytes % Eosinophils % Basophils % Band Neutrophils Nucleated RBCs Differential Comment Platelet Estimate INR PTT (Actin FS) 42.3 H Puncture Site ABG pH ABG pCO2 at Pt Temp ABG pO2 at Pt Temp ABG HCO3 ABG O2 Sat (Measured) ABG O2 Content ABG Base Excess Dennis Test O2 Delivery Device Oxygen Flow Rate Vent Mode Vent Rate Mechanical Rate PEEP Pressure Support Vent Sodium Potassium Chloride Carbon Dioxide Anion Gap BUN Creatinine Creat Clearance w eGFR POC Glucometer [phone] Random Glucose Calcium Phosphorus Magnesium Total Bilirubin Direct Bilirubin GGT AST ALT Alkaline Phosphatase Creatine Kinase Creatine Kinase Index CK-MB (CK-2) CK-MB (CK-2) Rel Index Troponin I Total Protein Albumin Urine Creatinine Random Vancomycin 18.640 Serum Copper Urine Copper Ur Copper 24 Hr Ur Copper/Creat Ratio [facility] Intr 09/26/16 07:15 WBC RBC Hgb Hct MCV MCHC RDW Plt Count MPV Neutrophils % Lymphocytes % Monocytes % Eosinophils % Basophils % Band Neutrophils Nucleated RBCs Differential Comment Platelet Estimate INR PTT (Actin FS) Puncture Site Right radial ABG pH 7.43 ABG pCO2 at Pt Temp 38.3 ABG pO2 at Pt Temp 126.0 H ABG HCO3 24.8 ABG O2 Sat (Measured) 98.8 ABG O2 Content 13.5 L ABG Base Excess 1.0 Dennis Test Positive O2 Delivery Device Vent Oxygen Flow Rate 40% Vent Mode A/c Vent Rate 16 Mechanical Rate Yes PEEP 5.0 Pressure Support Vent 450 Sodium Potassium Chloride Carbon Dioxide Anion Gap BUN Creatinine Creat Clearance w eGFR POC Glucometer Random Glucose Calcium Phosphorus Magnesium Total Bilirubin Direct Bilirubin GGT AST ALT Alkaline Phosphatase Creatine Kinase Creatine Kinase Index CK-MB (CK-2) CK-MB (CK-2) Rel Index Troponin I Total Protein Albumin Urine Creatinine Random Vancomycin Serum Copper Urine Copper Ur Copper 24 Hr Ur Copper/Creat Ratio [facility] Physical Exam: intubated , off sedation , resists eye opening .. HEENT: round equal pupils , reactive to light , ET tube in . no JVD, R IJ in Cv; RRR, NL S1, S2, no MRG Lungs :CTAB Abd ; soft, decreased BS Ext : no edema over LE . 2 areas of black coloration on R fore arm with ( 4x3 cm , and 1x1 cm . ) with mm surrounding erythema ASSESSMENT AND PLAN: 25 y/o man withh/o Asthma who presented after being found down, he was found to be in DKA, developed Acute resp failure , an also was found tohave metabolic acidosis, LFTs abnormalities and eleated lipase. 1- Acute resp failure: PNA vs ARDS no fever > 24 hr - will check vanco level today and re-dose - cont zosyn - monitor for mental status recovery off sedation 2- DKA : resolved , AG closed. -increase levemir and cont SSi q 4 h 3- Metabolic acidosis: resolved - off bicarb gtt - methanol and ethylin glycol levels pending 4- Hypernatremia : responded to increasing free water, although not going down appropriately Free water deficit today 5.4 L . - urine Na and urine Osm were not done , will repeat - cont free water 400 cc q 4h flushes , and continuous 55 cc/hr through FT 5-Severe Sepsis/septic shock resolved : source could be PNA . no more fever x > 24 hr - cont zosyn . vanco level pending , will re-dose 6- SEAN vs CKD : improved cr. cont to monitor . renal US NL 7- Transaminitis ; multifactorial, appreciate GI input. transaminases nl now , and Alk phos improved. GGT elevated . ceruloplasmin is elevated, makes Jorge A's unlikely monitor 8- Possible acute pancreatitis : received IVF , now being fed 9- Normocytic anemia : no evidence of active bleeding . and haptoglobin is NL indicating no hemolysis . - iron studies don't indicate iron def anemia. ferritin is elevated , likely due to active inflammation /infection 10 - DIC : likely due to severe sepsis. Not sure if ingestion has contributed. - resolved now 11- b/l superficial thrombophlebitis in upper extremities which is expanding. will check US of LE , to r/o DVT. heme on board ICU level of care Visit type - Emergency Visit Emergency Visit: Yes ED Registration Date: 09/18/16 Care time: The patient presented to the Emergency Department on the above date and was hospitalized for further evaluation of their emergent condition. - New Patient This patient is new to me today: No - Critical Care Critical Care patient: Yes Total Critical Care Time (in minutes): 35 Critical Care Statement: The care of this patient involved high complexity decision making to prevent further life threatening deterioration of the patient 's condition and/or to evalute & treat vital organ system(s) failure or risk of failure.
[2016-09-26] MEDS: FAMOTIDINE 20 MG/50 ML IVPB 50 ML IVPB SCH ×2 (09:12→21:41)
[2016-09-26] MEDS: POTASSIUM CHLORIDE ORAL LIQUID 20 MEQ/15 ML PO SCH ×2 (09:12→21:41)
[2016-09-26] MEDS: THIAMINE HCL 200 MG/2 ML VIAL IVPB SCH (09:12)
--- NOTE | 2016-09-26 09:12 | PN ---
Progress Note, Physician History of Present Illness: Neurology Dr Ching covering for Dr Albarran 25 year old male, with a significant past medical history of asthma, who presented to the emergency department --altered mental status. Reportedly, the patient recently returned from [place] and stated he was not feeling well, but could not localize his symptoms. +cocaine use. +elevated liver enzymes, also with DKA, has been having fevers, underwent spinal tap with RBC of 70,000 and 30,000 with elevated WBC and elevated glucose and protein. Head CT and without acute changes. off sedation x 48 hours, still poorly arousable - Current Medication List Current Medications: Active Medications Albuterol/Ipratropium (Duoneb -) 1 amp NEB QIDR [facility] Last Admin: 09/26/16 06:25 Dose: 1 amp Artificial Tears (Lacri-Lube Eye Ointment -) 1 applic OU BID [facility] Last Admin: 09/25/16 22:27 Dose: 1 applic Chlorhexidine Gluconate (Hibiclens For Decolonization -) 1 applic TP HS [facility] Last Admin: 09/25/16 22:29 Dose: 1 applic Heparin Sodium (Porcine) (Heparin -) 5,000 unit SQ TID [facility] Last Admin: 09/26/16 06:05 Dose: 5,000 unit IV Flush (Triple Lumen Flush) 4 ml IVPUSH PRN PRN PRN Reason: Protocol Last Admin: 09/23/16 13:30 Dose: 4 ml Propofol (Diprivan -) 100 mls @ 2.722 mls/hr IVPB TITR [facility]; 5 MCG/KG/MIN PRN Reason: Protocol Last Admin: 09/25/16 17:07 Dose: Not Given Famotidine/Sodium Chloride (Pepcid 20 Mg Premixed Ivpb -) 50 mls @ 100 mls/hr IVPB BID [facility] Last Admin: 09/25/16 22:25 Dose: 100 mls/hr Midazolam HCl 100 mg/ Sodium (Chloride) 100 mls @ 1 mls/hr IVPB TITR [facility]; 1 MG/ HR PRN Reason: Protocol Last Admin: 09/24/16 06:56 Dose: 10 mls/hr Piperacillin Sod/Tazobactam Sod (Zosyn 3.375gm Ivpb (Pre-Docked)) 50 mls @ 100 mls/hr IVPB Q8H-IV [facility] PRN Reason: Protocol Last Admin: 09/26/16 02:58 Dose: 100 mls/hr Insulin Aspart (Novolog Vial Sliding Scale -) 1 vial SQ Q4HWA [facility] PRN Reason: Protocol Last Admin: 09/26/16 06:10 Dose: 18 units Insulin Detemir (Levemir Vial) 27 units SQ HS [facility] Potassium Chloride (Potassium Chloride Oral Liquid) 40 meq PO BID [facility] Last Admin: 09/25/16 22:25 Dose: 40 meq Thiamine HCl (Vitamin B1 Injection -) 200 mg IVPB DAILY [facility] Last Admin: 09/25/16 09:58 Dose: 200 mg - Objective Vital Signs: Vital Signs Temperature 99.1 F 09/26/16 04:00 Pulse Rate 87 09/26/16 06:00 Respiratory Rate 18 09/26/16 06:25 Blood Pressure 157/105 09/26/16 06:00 O2 Sat by Pulse Oximetry (%) 99 09/25/16 19:35 Neurological: Yes: Other (eyes closed, attempts to open with stimulation, though does not track, +DOLL, +corneals, pupils symmetric , withdraws to pain in exe, plantars dwon, reflexes symmetric, neck supple) Labs: CBC, BMP 09/26/16 04:00 09/26/16 04:00 INR, PTT INR 1.04 (0.82-1.09) 09/26/16 04:00 Fibrinogen > 700.0 mg/dL (238-498) H 09/23/16 15:35 Problem List - Problems (1) Abnormal liver enzymes Code(s): R74.8 - ABNORMAL LEVELS OF OTHER SERUM ENZYMES (2) Acute renal insufficiency Code(s): N28.9 - DISORDER OF KIDNEY AND URETER, UNSPECIFIED (3) Altered mental status Code(s): R41.82 - ALTERED MENTAL STATUS, UNSPECIFIED Qualifiers: Altered mental status type: stupor Qualified Code(s): R40.1 - Stupor (4) DKA (diabetic ketoacidosis) Code(s): E13.10 - OTH DIABETES MELLITUS WITH KETOACIDOSIS WITHOUT COMA Qualifiers: Diabetes mellitus type: type 1 Diabetes mellitus complication detail: with coma Qualified Code(s): E10.11 - Type 1 diabetes mellitus with ketoacidosis with coma (5) Respiratory failure Code(s): J96.90 - RESPIRATORY FAILURE, UNSP, UNSP W HYPOXIA OR HYPERCAPNIA Assessment/Plan 25 year old male, with a significant past medical history of asthma, who presented to the emergency department --altered mental status. Reportedly, the patient recently returned from [place] and stated he was not feeling well, but could not localize his symptoms. +cocaine use. +elevated liver enzymes, also with DKA, has been having fevers, underwent spinal tap with RBC of 70,000 and 30,000 with elevated WBC and elevated glucose and protein. Head CT and without acute changes. off sedation x 48 hours, minimally arousable, no focality prolonged encephalopathy metabolic/infectious --DKA/RESP failure/ PNA , compounded by ? slow clearance of sedation given liver/renal injury) unable to decipher if cerebral anoxic injury doubt meningitis repeat HD CT , though ideally needs MRI BRAIN routine EEG Dr Ching [phone]
[2016-09-26] MEDS: OCULAR LUBRICANT OPHTHALMIC OINTMENT 7 GM TUBE OU SCH ×2 (09:13→21:41)
--- NOTE | 2016-09-26 09:23 | PN ---
Progress Note, Physician History of Present Illness: Renal f/u Pt in no distress on the ventilator He is poorly responsive Serum Na remains elevated DIarrhea noted CXR with clear lungs and unremarkable kidneys on sonogram - Current Medication List Current Medications: Active Medications Albuterol/Ipratropium (Duoneb -) 1 amp NEB QIDR [facility] Last Admin: 09/26/16 06:25 Dose: 1 amp Artificial Tears (Lacri-Lube Eye Ointment -) 1 applic OU BID [facility] Last Admin: 09/26/16 09:13 Dose: 1 applic Chlorhexidine Gluconate (Hibiclens For Decolonization -) 1 applic TP HS [facility] Last Admin: 09/25/16 22:29 Dose: 1 applic Heparin Sodium (Porcine) (Heparin -) 5,000 unit SQ TID [facility] Last Admin: 09/26/16 06:05 Dose: 5,000 unit IV Flush (Triple Lumen Flush) 4 ml IVPUSH PRN PRN PRN Reason: Protocol Last Admin: 09/23/16 13:30 Dose: 4 ml Propofol (Diprivan -) 100 mls @ 2.722 mls/hr IVPB TITR [facility]; 5 MCG/KG/MIN PRN Reason: Protocol Last Admin: 09/25/16 17:07 Dose: Not Given Famotidine/Sodium Chloride (Pepcid 20 Mg Premixed Ivpb -) 50 mls @ 100 mls/hr IVPB BID [facility] Last Admin: 09/26/16 09:12 Dose: 100 mls/hr Midazolam HCl 100 mg/ Sodium (Chloride) 100 mls @ 1 mls/hr IVPB TITR [facility]; 1 MG/ HR PRN Reason: Protocol Last Admin: 09/24/16 06:56 Dose: 10 mls/hr Piperacillin Sod/Tazobactam Sod (Zosyn 3.375gm Ivpb (Pre-Docked)) 50 mls @ 100 mls/hr IVPB Q8H-IV [facility] PRN Reason: Protocol Last Admin: 09/26/16 09:12 Dose: 100 mls/hr Insulin Aspart (Novolog Vial Sliding Scale -) 1 vial SQ Q4HWA [facility] PRN Reason: Protocol Last Admin: 09/26/16 09:15 Dose: 14 units Insulin Detemir (Levemir Vial) 27 units SQ HS [facility] Potassium Chloride (Potassium Chloride Oral Liquid) 40 meq PO BID [facility] Last Admin: 09/26/16 09:12 Dose: 40 meq Thiamine HCl (Vitamin B1 Injection -) 200 mg IVPB DAILY [facility] Last Admin: 09/26/16 09:12 Dose: 200 mg - Objective Vital Signs: Vital Signs Temperature 99.1 F 09/26/16 04:00 Pulse Rate 87 09/26/16 06:00 Respiratory Rate 18 09/26/16 06:25 Blood Pressure 157/105 09/26/16 06:00 O2 Sat by Pulse Oximetry (%) 99 09/25/16 19:35 Constitutional: Yes: No Distress Cardiovascular: Yes: S1, S2 Respiratory: Yes: Intubated, Other (equjal air entry B/L) Gastrointestinal: Yes: Soft. No: Distention Edema: No Labs: CBC, BMP 09/26/16 04:00 09/26/16 04:00 INR, PTT INR 1.04 (0.82-1.09) 09/26/16 04:00 Fibrinogen > 700.0 mg/dL (238-498) H 09/23/16 15:35 Laboratory Tests 09/26/16 07:15 ABG pH 7.43 ABG pCO2 at Pt Temp 38.3 ABG pO2 at Pt Temp 126.0 H ABG HCO3 24.8 ABG O2 Sat (Measured) 98.8 Oxygen Flow Rate 40% - ....Imaging Chest X-ray: Report Reviewed Ultrasound: Report Reviewed Assessment/Plan Impression 1. SEAN with hypernatremia 2. Acute respiratory failure requiring intubation 3. HTN 4. DKA with sepsis and lactic acidosis 5. Cocaine and etoh abuse - active Plan Add 1/2 NS at 75 cc/hr Add antihypertensive agent Continue with free water as ordered Discussed with the CCM Dr Tobias
[2016-09-26] MEDS ORDERED: SODIUM CHLORIDE 0.45% 1,000 ML IV SCH (09:30)
--- NOTE | 2016-09-26 09:40 | PN ---
Progress Note (short form) - Note Progress Note: PULM/CCM SUBJECTIVE: Patient seen and examined in the ICU. remains quite obtunded even fluid balance CT head ordered by neuro fever curve improved started BB for Diastolic 100 OBJECTIVE: Vital Signs Temp 99.1 F 09/26/16 04:00 Pulse 85 09/26/16 09:48 Resp 14 09/26/16 09:48 BP 157/105 09/26/16 06:00 Pulse Ox 100 09/26/16 09:48 Intake & Output 09/25/16 09/25/16 09/26/16 11:59 23:59 11:59 Intake Total 1660 2560 Output Total 1800 2450 Balance -140 110 Weight 97.721 kg 94.999 kg Intake: IV 0 D5W 2 AMPS NAHCO3@60CC/HR 0 IVPB 200 700 Tube Feeding 660 660 Tube Irrigant 800 1200 Output: Urine 1800 2450 Kelly 1800 2450 Other: Voiding Method Indwelling Catheter Indwelling Catheter Bowel Movement Yes: brown pasty moderate Yes Weight Measurement Method [facility] Active Medications Albuterol/Ipratropium (Duoneb -) 1 amp NEB QIDR [facility] Last Admin: 09/26/16 06:25 Dose: 1 amp Artificial Tears (Lacri-Lube Eye Ointment -) 1 applic OU BID [facility] Last Admin: 09/26/16 09:13 Dose: 1 applic Chlorhexidine Gluconate (Hibiclens For Decolonization -) 1 applic TP HS [facility] Last Admin: 09/25/16 22:29 Dose: 1 applic Heparin Sodium (Porcine) (Heparin -) 5,000 unit SQ TID [facility] Last Admin: 09/26/16 06:05 Dose: 5,000 unit IV Flush (Triple Lumen Flush) 4 ml IVPUSH PRN PRN PRN Reason: Protocol Last Admin: 09/23/16 13:30 Dose: 4 ml Famotidine/Sodium Chloride (Pepcid 20 Mg Premixed Ivpb -) 50 mls @ 100 mls/hr IVPB BID [facility] Last Admin: 09/26/16 09:12 Dose: 100 mls/hr Piperacillin Sod/Tazobactam Sod (Zosyn 3.375gm Ivpb (Pre-Docked)) 50 mls @ 100 mls/hr IVPB Q8H-IV [facility] PRN Reason: Protocol Last Admin: 09/26/16 09:12 Dose: 100 mls/hr Sodium Chloride (1/2 Normal Saline) 1,000 mls @ 75 mls/hr IV ASDIR [facility] Insulin Aspart (Novolog Vial Sliding Scale -) 1 vial SQ Q4HWA [facility] PRN Reason: Protocol Last Admin: 09/26/16 09:15 Dose: 14 units Insulin Detemir (Levemir Vial) 27 units SQ HS [facility] Metoprolol Tartrate (Lopressor -) 25 mg NGT TID [facility] Potassium Chloride (Potassium Chloride Oral Liquid) 40 meq PO BID [facility] Last Admin: 09/26/16 09:12 Dose: 40 meq Thiamine HCl (Vitamin B1 Injection -) 200 mg IVPB DAILY [facility] Last Admin: 09/26/16 09:12 Dose: 200 mg Gen: intubated, slight grimace to noxious stimuil Heart: tachycardic, regular Lung: scattered rhonchi Abd: soft, nontender Ext: decreasing edema ASSESSMENT AND PLAN: Acute Respiratory Failure Polysubstance Abuse Diabetic Ketoacidosis resolving Metabolic Acidosis r/o Septic Shock Acute Kidney Injury Lactic Acidosis resolved Elevated LFTs ?Alcohol Withdrawal Volume Overload - continue antibiotics per ID - daily assessment for lasix - monitor urine output, creatinine - free water via GT - monitoring off pressors, maintain MAP >65 - replete lytes - hold all sedation to assess mental status - spontaneous breathing trials as tolerated when mental status improved - enteral feeds - DVT/GI prophylaxis Critical care time spent in reviewing chart, evaluating patient and formulating plan 35 min Bryon Frank [facility] [id number] Problem List - Problems (1) Acute renal insufficiency Code(s): N28.9 - DISORDER OF KIDNEY AND URETER, UNSPECIFIED (2) Altered mental status Code(s): R41.82 - ALTERED MENTAL STATUS, UNSPECIFIED Qualifiers: Altered mental status type: stupor Qualified Code(s): R40.1 - Stupor (3) DKA (diabetic ketoacidosis) Code(s): E13.10 - OTH DIABETES MELLITUS WITH KETOACIDOSIS WITHOUT COMA Qualifiers: Diabetes mellitus type: type 1 Diabetes mellitus complication detail: with coma Qualified Code(s): E10.11 - Type 1 diabetes mellitus with ketoacidosis with coma (4) Respiratory failure Code(s): J96.90 - RESPIRATORY FAILURE, UNSP, UNSP W HYPOXIA OR HYPERCAPNIA
[2016-09-26] MEDS ORDERED: METOPROLOL TARTRATE 5 MG/5 ML VIAL IVPUSH ONE (09:45)
--- NOTE | 2016-09-26 10:02 | EKG ---
Test Reason : Blood Pressure : / mmHG Vent. Rate : 093 BPM Atrial Rate : 093 BPM P-R Int : 118 ms QRS Dur : 094 ms QT Int : 312 ms P-R-T Axes : -17 050 002 degrees QTc Int : 387 ms NORMAL SINUS RHYTHM NONSPECIFIC ST ABNORMALITY ABNORMAL ECG Confirmed by ZENY CUMMINGS MD ([id number]) on 09/26/2016 10:02:24 AM Referred By: PETTY UNDERWOOD Confirmed By:ZENY CUMMINGS MD
[2016-09-26 13:49] LABS: TROPONIN I 0.02 ng/ml (0.00-0.05)
[2016-09-26] MEDS: METOPROLOL TARTRATE 25 MG TABLET (FP) NGT SCH ×2 (13:52→21:41)
--- NOTE | 2016-09-26 16:57 | PN ---
Progress Note (short form) - Note Progress Note: moving right leg today, trying to open his eyes remains on ventilator Vital Signs Period Temp Pulse Resp BP Sys/Gould Pulse Ox Last 24 Hr 98.7 F-99.4 F 80-95 14-22 130-157/87-111 99-100 cor-rrr lungs clear decreased bs at bases abd soft,nt ext no edema CBC, BMP 09/26/16 04:00 09/26/16 04:00 ct scan with pansinusitis a/p respiratory failure DKA sinusitis SEAN etoh use, abnl LFTS continue vanco based on levels, continue zosyn value of ENT consult for sinusitis d/w hospitalist Problem List - Problems (1) DKA (diabetic ketoacidosis) Code(s): E13.10 - OTH DIABETES MELLITUS WITH KETOACIDOSIS WITHOUT COMA Qualifiers: Diabetes mellitus type: type 1 Diabetes mellitus complication detail: with coma Qualified Code(s): E10.11 - Type 1 diabetes mellitus with ketoacidosis with coma (2) Acute renal insufficiency Code(s): N28.9 - DISORDER OF KIDNEY AND URETER, UNSPECIFIED (3) Respiratory failure Code(s): J96.90 - RESPIRATORY FAILURE, UNSP, UNSP W HYPOXIA OR HYPERCAPNIA (4) Leukocytosis Code(s): D72.829 - ELEVATED WHITE BLOOD CELL COUNT, UNSPECIFIED
[2016-09-26] MEDS ORDERED: VANCOMYCIN 1,500 MG in DEXTROSE 5%-WATER - 500 ML IVPB ONE (17:23)
[2016-09-26] MEDS: CHLORHEXIDINE GLUCONATE 4% CLEANSER FOR DECOLONIZATION TP SCH (21:42)
[2016-09-27] MEDS: PIPERACILLIN/TAZOB 3.375 GM 50 ML IVPB SCH ×3 (02:41→17:42)
[2016-09-27] MEDS: HEPARIN NA (PORCINE) 5,000 UNITS/ML 1ML VIAL SQ SCH ×3 (05:01→21:02)
[2016-09-27] MEDS: METOPROLOL TARTRATE 25 MG TABLET (FP) NGT SCH ×3 (05:01→21:02)
[2016-09-27] MEDS: INSULIN SLIDING SCALE (NOVOLOG) 1 VIAL SQ SCH ×5 (05:02→21:50)
[2016-09-27] MEDS: ALBUTEROL SO4 2.5/IPRATROPIUM 0.5 INH SOL 3 ML VIAL.NEB. NEB SCH ×2 (05:18→12:06)
[2016-09-27 06:06] LABS: BASOPHIL 0.4 % (0-2.0); EOSINOPHIL 2.2 % (0-4.5); MCH 30.5 pg (25.7-33.7); MEAN CELL VOLUME 89.8 fl (80-96); MEAN PLT VOLUME 9.5 fl (7.5-11.1); NEUTROPHILS 65.4 % (42.8-82.8); PLATELET COUNT 167 K/MM3 (134-434); RDW 13.6 % (11.9-15.9); WHITE BLOOD COUNT 6.9 K/mm3 (4.0-10.0)
[2016-09-27 06:24] LABS: ALBUMIN 1.8 g/dl (3.4-5.0); BILIRUBIN,TOTAL 0.4 mg/dL (0.2-1.0); COCKROFT - GAULT 72.88; CREATININE 2.1 mg/dL (0.7-1.3); MAGNESIUM 2.4 mg/dL (1.8-2.4); PHOSPHOROUS 3.4 mg/dL (2.5-4.9); TOT PROT 5.6 g/dl (6.4-8.2)
[2016-09-27 07:22] LABS: ALLENS TEST POSITIVE; ART PUNCT SITE LEFT RADIAL; ARTERIAL BLOOD GAS BASE EXCESS 2.9 meq/l (-2-2); ARTERIAL BLOOD GAS HCO3 26.2 meq/L (22-26); ARTERIAL BLOOD GAS pH 7.46 (7.35-7.45); LPM/O2% 50%; PT. ON O2? YES
[2016-09-27 07:23] LABS: TYPE OF O2 VENTIMASK
--- NOTE | 2016-09-27 08:16 | PN ---
Progress Note (short form) - Note Progress Note: extubated, responsive Vital Signs Period Temp Pulse Resp BP Sys/Gould Pulse Ox Last 24 Hr 98.1 F-99.4 F 80-106 12-18 119-147/83-103 98-100 cor-rrr lungs decreased bs at bases abd soft,nt ext no edema CBC, BMP 09/27/16 05:15 09/27/16 05:15 Microbiology 09/26/16 11:42 Clostridium difficile Antigen (WESLY) - Final Stool Clostridium difficile Toxin Assay - Final 09/24/16 18:05 Salmonella/Shigella Culture - Preliminary Stool NO ENTERIC PATHOGENS, 24 HOURS, ON PRIMARY PLATES Yersinia Culture - Preliminary NO ENTERIC PATHOGENS, 24 HOURS, ON PRIMARY PLATES Vibrio Culture - Preliminary NO ENTERIC PATHOGENS, 24 HOURS, ON PRIMARY PLATES Escherichia coli 0157 Culture - Preliminary NO ENTERIC PATHOGENS, 24 HOURS, ON PRIMARY PLATES a/p extubated this am- DKA sinusitis SEAN etoh use, abnl LFTS continue vancomycin based on levels, continue zosyn Problem List - Problems (1) DKA (diabetic ketoacidosis) Code(s): E13.10 - OTH DIABETES MELLITUS WITH KETOACIDOSIS WITHOUT COMA Qualifiers: Diabetes mellitus type: type 1 Diabetes mellitus complication detail: with coma Qualified Code(s): E10.11 - Type 1 diabetes mellitus with ketoacidosis with coma (2) Acute renal insufficiency Code(s): N28.9 - DISORDER OF KIDNEY AND URETER, UNSPECIFIED (3) Respiratory failure Code(s): J96.90 - RESPIRATORY FAILURE, UNSP, UNSP W HYPOXIA OR HYPERCAPNIA (4) Leukocytosis Code(s): D72.829 - ELEVATED WHITE BLOOD CELL COUNT, UNSPECIFIED
--- NOTE | 2016-09-27 08:52 | PN ---
Progress Note (short form) - Note Progress Note: Subjective: no events over night . he was extubated . now on venti mask Objective: Vital Signs: Last Vital Signs Temp Pulse Resp BP Pulse Ox 98.1 F 78 14 141/90 98 09/27/16 06:00 09/27/16 08:00 09/27/16 08:00 09/27/16 08:00 09/27/16 05:41 Laboratory Results - last 24 hr 09/25/16 09/25/16 09/26/16 08:00 09:30 04:00 WBC RBC Hgb Hct MCV MCHC RDW Plt Count MPV Neutrophils % Lymphocytes % Monocytes % Eosinophils % Basophils % Puncture Site ABG pH ABG pCO2 at Pt Temp ABG pO2 at Pt Temp ABG HCO3 ABG O2 Sat (Measured) ABG O2 Content ABG Base Excess Dennis Test O2 Delivery Device Oxygen Flow Rate Sodium Potassium Chloride Carbon Dioxide Anion Gap BUN Creatinine Creat Clearance w eGFR POC Glucometer Random Glucose Calcium Phosphorus Magnesium Total Bilirubin AST ALT Alkaline Phosphatase Creatine Kinase 142 Troponin I 0.02 Total Protein Albumin Urine Osmolality 387 Random Vancomycin Anti-Cardiolipin IgG Ab <9 Anti-Cardiolipin IgA Ab <9 Anti-Cardiolipin IgM Ab <9 09/26/16 09/26/16 09/26/16 04:00 08:00 08:35 WBC RBC Hgb Hct MCV MCHC RDW Plt Count MPV Neutrophils % Lymphocytes % Monocytes % Eosinophils % Basophils % Puncture Site ABG pH ABG pCO2 at Pt Temp ABG pO2 at Pt Temp ABG HCO3 ABG O2 Sat (Measured) ABG O2 Content ABG Base Excess Dennis Test O2 Delivery Device Oxygen Flow Rate Sodium Potassium Chloride Carbon Dioxide Anion Gap BUN Creatinine Creat Clearance w eGFR POC Glucometer Random Glucose Calcium Phosphorus Magnesium Total Bilirubin AST ALT Alkaline Phosphatase Creatine Kinase Cancelled Troponin I Cancelled Total Protein Albumin Urine Osmolality 404 Random Vancomycin 13.924 Anti-Cardiolipin IgG Ab Anti-Cardiolipin IgA Ab Anti-Cardiolipin IgM Ab 09/26/16 09/26/16 09/26/16 09:12 13:49 16:58 WBC RBC Hgb Hct MCV MCHC RDW Plt Count MPV Neutrophils % Lymphocytes % Monocytes % Eosinophils % Basophils % Puncture Site ABG pH ABG pCO2 at Pt Temp ABG pO2 at Pt Temp ABG HCO3 ABG O2 Sat (Measured) ABG O2 Content ABG Base Excess Dennis Test O2 Delivery Device Oxygen Flow Rate Sodium Potassium Chloride Carbon Dioxide Anion Gap BUN Creatinine Creat Clearance w eGFR POC Glucometer 196.07276 122.89750 [phone] Random Glucose Calcium Phosphorus Magnesium Total Bilirubin AST ALT Alkaline Phosphatase Creatine Kinase Troponin I Total Protein Albumin Urine Osmolality Random Vancomycin Anti-Cardiolipin IgG Ab Anti-Cardiolipin IgA Ab Anti-Cardiolipin IgM Ab 09/26/16 09/27/16 09/27/16 21:30 04:56 05:15 WBC 6.9 D RBC 2.87 L Hgb 8.8 L Hct 25.8 L MCV 89.8 MCHC 34.0 RDW 13.6 Plt Count 167 MPV 9.5 Neutrophils % 65.4 Lymphocytes % 23.1 Monocytes % 8.9 Eosinophils % 2.2 Basophils % 0.4 Puncture Site ABG pH ABG pCO2 at Pt Temp ABG pO2 at Pt Temp ABG HCO3 ABG O2 Sat (Measured) ABG O2 Content ABG Base Excess Dennis Test O2 Delivery Device Oxygen Flow Rate Sodium Potassium Chloride Carbon Dioxide Anion Gap BUN Creatinine Creat Clearance w eGFR POC Glucometer [phone] Random Glucose Calcium Phosphorus Magnesium Total Bilirubin AST ALT Alkaline Phosphatase Creatine Kinase Troponin I Total Protein Albumin Urine Osmolality Random Vancomycin Anti-Cardiolipin IgG Ab Anti-Cardiolipin IgA Ab Anti-Cardiolipin IgM Ab 09/27/16 09/27/16 05:15 07:20 WBC RBC Hgb Hct MCV MCHC RDW Plt Count MPV Neutrophils % Lymphocytes % Monocytes % Eosinophils % Basophils % Puncture Site Left radial ABG pH 7.46 H ABG pCO2 at Pt Temp 37.0 ABG pO2 at Pt Temp 163.0 H* ABG HCO3 26.2 H ABG O2 Sat (Measured) 98.0 ABG O2 Content 14.6 L ABG Base Excess 2.9 H Dennis Test Positive O2 Delivery Device Ventimask Oxygen Flow Rate 50% Sodium 153 H Potassium 3.7 Chloride 117 H Carbon Dioxide 28 Anion Gap 8 BUN 30 H Creatinine 2.1 H Creat Clearance w eGFR 39.00 POC Glucometer Random Glucose 120 H D Calcium 8.0 L Phosphorus 3.4 Magnesium 2.4 Total Bilirubin 0.4 D AST 31 ALT 41 Alkaline Phosphatase 246 H Creatine Kinase Troponin I Total Protein 5.6 L Albumin 1.8 L Urine Osmolality Random Vancomycin Anti-Cardiolipin IgG Ab Anti-Cardiolipin IgA Ab Anti-Cardiolipin IgM Ab Physical Exam: extubated, awake , alert , tries to talk , ( few words to other providers). moves his legs and his arms , but does not follow directions HEENT: round equal pupils , reactive to light , ET tube in . no JVD, R IJ in Cv; RRR, NL S1, S2, no MRG, no JVD Lungs :rales heard anteriorly , but he is not taking deep breaths. Abd ; soft, decreased BS Ext : 1+ pitting edema on feet . 2 areas of black coloration on R fore arm with ( 4x3 cm , and 1x1 cm . ) with mm surrounding erythema Neuro : very limited as pt is not cooperative , awake , alert, round equal pupils , reactive to light , no facial droop, tongue at mid line , moves arms and legs , reflexes 2+ knee jerk , 1+ biceps b/l . ASSESSMENT AND PLAN: 25 y/o man with h/o Asthma who presented after being found down, he was found to be in DKA, developed Acute resp failure , an also was found tohave metabolic acidosis, LFTs abnormalities and eleated lipase. 1- Acute resp failure: PNA vs ARDS, now improved and extubated - transition to NSC at 3 L - cont abx 2- DKA : resolved , AG closed. -cont levemir( 27 u) and cont SSi q 4 h 3- AMS : now awake , off sedationand extubated. not responding completely to commands - will d/c EEG - expect mentation to improves. 4- Hypernatremia : responded to increasing free water, and IVF Free water deficit today 4.1 L . - increase 1/2 Nl to 125 . d/w Dr. bledsoe - cont free water 400 cc q 4h flushes , and continuous 55 cc/hr through FT 5-Severe Sepsis/septic shock resolved : source could be PNA , also sinusitis no more fever - cont zosyn . check vanco level and re-dose 6- SEAN, likely has CKD : improved cr. cont to monitor . renal US NL 7- Transaminitis ; multifactorial, appreciate GI input. transaminases nl now , and Alk phos improved. GGT elevated . ceruloplasmin is elevated, makes Jorge A's unlikely monitor 8- Possible acute pancreatitis : not active now 9- Normocytic anemia : no evidence of active bleeding . and haptoglobin is NL indicating no hemolysis . - iron studies don't indicate iron def anemia. ferritin is elevated , likely due to active inflammation /infection 10 - DIC : likely due to severe sepsis. - resolved now 11- b/l superficial thrombophlebitis in upper extremities which expaneded will repeat US tomorrow d/w Id , neuro and renal ICU level of care Visit type - Emergency Visit Emergency Visit: Yes ED Registration Date: 09/18/16 Care time: The patient presented to the Emergency Department on the above date and was hospitalized for further evaluation of their emergent condition. - New Patient This patient is new to me today: No - Critical Care Critical Care patient: Yes Total Critical Care Time (in minutes): 35 Critical Care Statement: The care of this patient involved high complexity decision making to prevent further life threatening deterioration of the patient 's condition and/or to evalute & treat vital organ system(s) failure or risk of failure.
[2016-09-27] MEDS ORDERED: SODIUM CHLORIDE 0.45% 1,000 ML IV SCH (08:54)
--- NOTE | 2016-09-27 09:00 | PN ---
Progress Note, Physician History of Present Illness: Renal f/u Pt in no distress off the ventilator NGT also out and pt is NPO He is awake and reponsive- He attempts to speak Not able to follow directions - Current Medication List Current Medications: Active Medications Albuterol/Ipratropium (Duoneb -) 1 amp NEB QIDR [facility] Last Admin: 09/27/16 05:18 Dose: 1 amp Artificial Tears (Lacri-Lube Eye Ointment -) 1 applic OU BID [facility] Last Admin: 09/26/16 21:41 Dose: 1 applic Chlorhexidine Gluconate (Hibiclens For Decolonization -) 1 applic TP HS [facility] Last Admin: 09/26/16 21:42 Dose: 1 applic Heparin Sodium (Porcine) (Heparin -) 5,000 unit SQ TID [facility] Last Admin: 09/27/16 05:01 Dose: 5,000 unit IV Flush (Triple Lumen Flush) 4 ml IVPUSH PRN PRN PRN Reason: Protocol Last Admin: 09/23/16 13:30 Dose: 4 ml Famotidine/Sodium Chloride (Pepcid 20 Mg Premixed Ivpb -) 50 mls @ 100 mls/hr IVPB BID [facility] Last Admin: 09/26/16 21:41 Dose: 100 mls/hr Piperacillin Sod/Tazobactam Sod (Zosyn 3.375gm Ivpb (Pre-Docked)) 50 mls @ 100 mls/hr IVPB Q8H-IV [facility]ILVER PRN Reason: Protocol Last Admin: 09/27/16 02:41 Dose: 100 mls/hr Sodium Chloride (1/2 Normal Saline) 1,000 mls @ 75 mls/hr IV ASDIR [facility] Last Admin: 09/26/16 10:06 Dose: 75 mls/hr Insulin Aspart (Novolog Vial Sliding Scale -) 1 vial SQ Q4HWA [facility] PRN Reason: Protocol Last Admin: 09/27/16 05:02 Dose: Not Given Insulin Detemir (Levemir Vial) 27 units SQ HS [facility] Last Admin: 09/26/16 21:43 Dose: 27 units Metoprolol Tartrate (Lopressor -) 25 mg NGT TID [facility] Last Admin: 09/27/16 05:01 Dose: 25 mg Potassium Chloride (Potassium Chloride Oral Liquid) 40 meq PO BID [facility] Last Admin: 09/26/16 21:41 Dose: 40 meq Thiamine HCl (Vitamin B1 Injection -) 200 mg IVPB DAILY [facility] Last Admin: 09/26/16 09:12 Dose: 200 mg - Objective Vital Signs: Vital Signs Temperature 98.1 F 09/27/16 06:00 Pulse Rate 78 09/27/16 08:00 Respiratory Rate 14 09/27/16 08:00 Blood Pressure 141/90 09/27/16 08:00 O2 Sat by Pulse Oximetry (%) 98 09/27/16 05:41 Constitutional: Yes: No Distress Cardiovascular: Yes: S1, S2. No: JVD Respiratory: Yes: Other (Occasional rhonchi) Gastrointestinal: Yes: Abdomen, Obese, Distention. No: Tenderness, Rebound Edema: LLE: Trace, RLE: Trace Labs: CBC, BMP 09/27/16 05:15 09/27/16 05:15 INR, PTT INR 1.04 (0.82-1.09) 09/26/16 04:00 Fibrinogen > 700.0 mg/dL (238-498) H 09/23/16 15:35 Assessment/Plan Impression 1. SEAN with hypernatremia 2. Acute respiratory failure requiring intubation 3. HTN 4. DKA with sepsis and lactic acidosis 5. Cocaine and etoh abuse - active Plan If swallowing evaluation does permit feeding may need NGT for meds and feeds If pt to remain NPO would increase the IVF Discussed with the Hospitalist Dr Tobias
[2016-09-27] MEDS: FAMOTIDINE 20 MG/50 ML IVPB 50 ML IVPB SCH ×2 (09:28→21:02)
[2016-09-27] MEDS: THIAMINE HCL 200 MG/2 ML VIAL IVPB SCH (09:29)
[2016-09-27] MEDS ORDERED: HEMOQUE TEST 1 EACH EACH ONE (10:22)
--- NOTE | 2016-09-27 11:41 | PN ---
Progress Note (short form) - Note Progress Note: Seen and examined in ICU extubated this AM mental status improving denies: CP/CASE/nausea/pain Active Medications Albuterol/Ipratropium (Duoneb -) 1 amp NEB QIDR [facility] Last Admin: 09/27/16 05:18 Dose: 1 amp Heparin Sodium (Porcine) (Heparin -) 5,000 unit SQ TID [facility] Last Admin: 09/27/16 05:01 Dose: 5,000 unit IV Flush (Triple Lumen Flush) 4 ml IVPUSH PRN PRN PRN Reason: Protocol Last Admin: 09/23/16 13:30 Dose: 4 ml Famotidine/Sodium Chloride (Pepcid 20 Mg Premixed Ivpb -) 50 mls @ 100 mls/hr IVPB BID [facility] Last Admin: 09/27/16 09:28 Dose: 100 mls/hr Piperacillin Sod/Tazobactam Sod (Zosyn 3.375gm Ivpb (Pre-Docked)) 50 mls @ 100 mls/hr IVPB Q8H-IV [facility] PRN Reason: Protocol Last Admin: 09/27/16 09:27 Dose: 100 mls/hr Sodium Chloride (1/2 Normal Saline) 1,000 mls @ 125 mls/hr IV ASDIR [facility] Last Admin: 09/27/16 09:26 Dose: 125 mls/hr Insulin Aspart (Novolog Vial Sliding Scale -) 1 vial SQ Q4HWA [facility] PRN Reason: Protocol Last Admin: 09/27/16 10:28 Dose: Not Given Insulin Detemir (Levemir Vial) 27 units SQ HS [facility] Last Admin: 09/26/16 21:43 Dose: 27 units Metoprolol Tartrate (Lopressor -) 25 mg NGT TID [facility] Last Admin: 09/27/16 05:01 Dose: 25 mg Thiamine HCl (Vitamin B1 Injection -) 200 mg IVPB DAILY [facility] Last Admin: 09/27/16 09:29 Dose: 200 mg Vital Signs Period Temp Pulse Resp BP Sys/Gould Pulse Ox Last 24 Hr 98.1 F-99.4 F 78-106 12-18 119-147/83-103 98-100 Intake & Output 09/24/16 09/25/16 09/26/16 09/27/16 23:59 23:59 23:59 23:59 Intake Total 4079.6 4220 2600 2730 Output Total 2100 4250 1800 2200 Balance 1979.6 -30 800 530 Weight 97.5 kg 97.721 kg 94.999 kg 90.066 kg Gen: in bed w/o distress on NC Heart: tachycardic, regular Lung: scattered rhonchi Abd: SNTND Ext: +1 LE edema Neuro: following commands, POWERS CBCD WBC 6.9 K/mm3 (4.0-10.0) D 09/27/16 05:15 RBC 2.87 M/mm3 (4.00-5.60) L 09/27/16 05:15 Hgb 8.8 GM/dL (11.7-16.9) L 09/27/16 05:15 Hct 25.8 % (35.4-49) L 09/27/16 05:15 MCV 89.8 fl (80-96) 09/27/16 05:15 MCHC 34.0 g/dl (32.0-35.9) 09/27/16 05:15 RDW 13.6 % (11.9-15.9) 09/27/16 05:15 Plt Count 167 K/MM3 (134-434) 09/27/16 05:15 MPV 9.5 fl (7.5-11.1) 09/27/16 05:15 CMP Sodium 153 mmol/L (136-145) H 09/27/16 05:15 Potassium 3.7 mmol/L (3.5-5.1) 09/27/16 05:15 Chloride 117 mmol/L (98-107) H 09/27/16 05:15 Carbon Dioxide 28 mmol/L (21-32) 09/27/16 05:15 Anion Gap 8 (8-16) 09/27/16 05:15 BUN 30 mg/dL (7-18) H 09/27/16 05:15 Creatinine 2.1 mg/dL (0.7-1.3) H 09/27/16 05:15 Creat Clearance w eGFR 39.00 (>60) 09/27/16 05:15 Random Glucose 120 mg/dL (74-106) H D 09/27/16 05:15 Calcium 8.0 mg/dL (8.5-10.1) L 09/27/16 05:15 Total Bilirubin 0.4 mg/dL (0.2-1.0) D 09/27/16 05:15 AST 31 U/L (15-37) 09/27/16 05:15 ALT 41 U/L (12-78) 09/27/16 05:15 Alkaline Phosphatase 246 U/L (45-117) H 09/27/16 05:15 Total Protein 5.6 g/dl (6.4-8.2) L 09/27/16 05:15 Albumin 1.8 g/dl (3.4-5.0) L 09/27/16 05:15 CARDIAC ENZYMES Creatine Kinase 142 IU/L (39-308) 09/26/16 04:00 Troponin I 0.02 ng/ml (0.00-0.05) 09/26/16 04:00 Microbiology 09/26/16 11:42 Stool Clostridium difficile Antigen (WESLY) - Final 09/26/16 11:42 Stool Clostridium difficile Toxin Assay - Final 09/24/16 18:05 Stool Salmonella/Shigella Culture - Preliminary NO ENTERIC PATHOGENS, 24 HOURS, ON PRIMARY PLATES 09/24/16 18:05 Stool Yersinia Culture - Preliminary NO ENTERIC PATHOGENS, 24 HOURS, ON PRIMARY PLATES 09/24/16 18:05 Stool Vibrio Culture - Preliminary NO ENTERIC PATHOGENS, 24 HOURS, ON PRIMARY PLATES 09/24/16 18:05 Stool Escherichia coli 0157 Culture - Preliminary NO ENTERIC PATHOGENS, 24 HOURS, ON PRIMARY PLATES 09/19/16 13:05 Blood - Central Line Blood Culture - Final NO GROWTH AFTER 5 DAYS INCUBATION 09/19/16 11:22 Blood - Central Line Blood Culture - Final NO GROWTH AFTER 5 DAYS INCUBATION 09/21/16 18:30 Nasopharyngeal Swab Nasopharyngeal Culture - Final Yeast Like Organism 09/20/16 23:27 Sputum - Endotrachea Suction/Ventilator Gram Stain - Final 09/20/16 23:27 Sputum - Endotrachea Suction/Ventilator Sputum Culture - Final Yeast Like Organism Mr S Aureus 09/18/16 22:00 Cerebral Spinal Fluid - Lumbar Puncture Fungal Culture - Preliminary 09/18/16 14:00 Blood - Peripheral Venous Blood Culture - Final NO GROWTH AFTER 5 DAYS INCUBATION 09/18/16 14:00 Blood - Peripheral Venous Blood Culture - Final NO GROWTH AFTER 5 DAYS INCUBATION 09/18/16 22:00 Cerebral Spinal Fluid - Lumbar Puncture Gram Stain - Final 09/18/16 22:00 Cerebral Spinal Fluid - Lumbar Puncture CSF Culture - Final NO GROWTH AFTER 48 HOURS INCUBATION 09/18/16 14:20 Urine - Urine - Catheterized Urine Culture - Final NO GROWTH OBTAINED 09/18/16 22:00 Cerebral Spinal Fluid - Lumbar Puncture Gram Stain - Final ASSESSMENT AND PLAN: Acute Respiratory Failure -- resolved Polysubstance Abuse Diabetic Ketoacidosis resolving Metabolic Acidosis r/o Septic Shock Acute Kidney Injury Lactic Acidosis resolved Elevated LFTs ?Alcohol Withdrawal Volume Overload - continue antibiotics per ID - cont insulin - cont TLC until able to take po meds, scheduled for repeat UE dopplers - daily assessment for lasix - monitor urine output, creatinine - free water via IV - replete lytes - O2 for sat >92 - incentive melinda - speech and swallow evaluation - DVT/GI prophylaxis Boerem ACNP Pulm/CCM CCT: 35m Problem List - Problems (1) Acute renal insufficiency Code(s): N28.9 - DISORDER OF KIDNEY AND URETER, UNSPECIFIED (2) Altered mental status Code(s): R41.82 - ALTERED MENTAL STATUS, UNSPECIFIED Qualifiers: Altered mental status type: stupor Qualified Code(s): R40.1 - Stupor (3) DKA (diabetic ketoacidosis) Code(s): E13.10 - OTH DIABETES MELLITUS WITH KETOACIDOSIS WITHOUT COMA Qualifiers: Diabetes mellitus type: type 1 Diabetes mellitus complication detail: with coma Qualified Code(s): E10.11 - Type 1 diabetes mellitus with ketoacidosis with coma (4) Lactic acidosis Code(s): E87.2 - ACIDOSIS (5) Leukocytosis Code(s): D72.829 - ELEVATED WHITE BLOOD CELL COUNT, UNSPECIFIED (6) Respiratory failure Code(s): J96.90 - RESPIRATORY FAILURE, UNSP, UNSP W HYPOXIA OR HYPERCAPNIA (7) Shock Code(s): R57.9 - SHOCK, UNSPECIFIED
--- NOTE | 2016-09-27 11:54 | PN ---
Progress Note (short form) - Note Progress Note: - Note Progress Note: Patient seen and examined extubated off sedation trying to respond to questions but still not making sense Vital Signs Period Temp Pulse Resp BP Sys/Gould Pulse Ox Last 24 Hr 98.1 F-99.4 F 78-106 12-18 119-147/83-103 98-100 extubated Cor: RSR, No murmurs, No gallops Lungs: Clear to P&A ant. Abd: Soft, Normal bowel sounds, No organomegaly Ext:anasarca CBC, BMP 09/27/16 05:15 09/27/16 05:15 Active Medications Generic Name Dose Route Start Last Admin Trade Name Freq PRN Reason Stop Dose Admin Albuterol/Ipratropium 1 amp 09/22/16 12:15 09/27/16 05:18 Duoneb - NEB 1 amp QIDR [facility] Administration Heparin Sodium (Porcine) 5,000 unit 09/23/16 14:00 09/27/16 05:01 Heparin - SQ 5,000 unit TID [facility] Administration IV Flush 4 ml 09/18/16 20:31 09/23/16 13:30 Triple Lumen Flush IVPUSH 4 ml PRN PRN Administration Protocol Famotidine/Sodium Chloride 50 mls @ 100 mls/hr 09/19/16 10:00 09/27/16 09:28 Pepcid 20 Mg Premixed Ivpb - IVPB 100 mls/hr BID [facility] Administration Piperacillin Sod/Tazobactam Sod 50 mls @ 100 mls/hr 09/20/16 09:00 09/27/16 09: 27 Zosyn 3.375gm Ivpb (Pre-Docked) IVPB 100 mls/hr Q8H-IV [facility] Administration Protocol Sodium Chloride 1,000 mls @ 125 mls/hr 09/27/16 08:54 09/27/16 09:26 1/2 Normal Saline IV 125 mls/hr ASDIR [facility] Administration Insulin Aspart 1 vial 09/25/16 14:00 09/27/16 10:28 Novolog Vial Sliding Scale - SQ Not Given Q4HWA [facility] Protocol Insulin Detemir 27 units 09/26/16 08:11 09/26/16 21:43 Levemir Vial SQ 27 units HS [facility] Administration Metoprolol Tartrate 25 mg 09/26/16 14:00 09/27/16 05:01 Lopressor - NGT 25 mg TID [facility] Administration Thiamine HCl 200 mg 09/19/16 10:00 09/27/16 09:29 Vitamin B1 Injection - IVPB 200 mg DAILY [facility] Administration A/P 25 y/o patient with h/o polysubstance abuse presenting with altered mental status, DKA, DIC/multiorganfailure. Was found unresponsive . DIC: on presentation fibrinogen was < 100 c/w DIC. PArameters have improved since en. currently fibrinogen is normal peripheral smear -- anisocytosis/poikilocytosis, occ. schistocytes--09/23 LDH--marginally elevated/haptoglobin nl--this is not c/w TTP/HUS Will check antiphospholipid panel HIT neg. VIRGIL neg./ SIFE neg. superficial thrombophlebitis both upper ext. (all likely due to DIC which has now resolved) No DVt area of necrosis is stable Renal u/s--patent renal veins will follow
--- NOTE | 2016-09-27 13:09 | PN ---
Progress Note (short form) - Note Progress Note: Neurology 25 year old male, with a significant past medical history of asthma, who presented to the emergency department --altered mental status. Reportedly, the patient recently returned from [place] and stated he was not feeling well, but could not localize his symptoms. +cocaine use. +elevated liver enzymes, also with DKA, has been having fevers, underwent spinal tap with RBC of 70,000 and 30,000 with elevated WBC and elevated glucose and protein. Head CT and without acute changes. FU : extubated and more awake, eyes open and follows very simple requests attempts to answer name, inconsistently tracks moving R >L exe repeat HD CT 09/26 no new pathology - Current Medication List Current Medications: Active Medications Albuterol/Ipratropium (Duoneb -) 1 amp NEB QIDR [facility] Last Admin: 09/26/16 06:25 Dose: 1 amp Artificial Tears (Lacri-Lube Eye Ointment -) 1 applic OU BID [facility] Last Admin: 09/25/16 22:27 Dose: 1 applic Chlorhexidine Gluconate (Hibiclens For Decolonization -) 1 applic TP HS [facility] Last Admin: 09/25/16 22:29 Dose: 1 applic Heparin Sodium (Porcine) (Heparin -) 5,000 unit SQ TID [facility] Last Admin: 09/26/16 06:05 Dose: 5,000 unit IV Flush (Triple Lumen Flush) 4 ml IVPUSH PRN PRN PRN Reason: Protocol Last Admin: 09/23/16 13:30 Dose: 4 ml Propofol (Diprivan -) 100 mls @ 2.722 mls/hr IVPB TITR SILVER; 5 MCG/KG/MIN PRN Reason: Protocol Last Admin: 09/25/16 17:07 Dose: Not Given Famotidine/Sodium Chloride (Pepcid 20 Mg Premixed Ivpb -) 50 mls @ 100 mls/hr IVPB BID [facility] Last Admin: 09/25/16 22:25 Dose: 100 mls/hr Midazolam HCl 100 mg/ Sodium (Chloride) 100 mls @ 1 mls/hr IVPB TITR [facility]; 1 MG/ HR PRN Reason: Protocol Last Admin: 09/24/16 06:56 Dose: 10 mls/hr Piperacillin Sod/Tazobactam Sod (Zosyn 3.375gm Ivpb (Pre-Docked)) 50 mls @ 100 mls/hr IVPB Q8H-IV [facility] PRN Reason: Protocol Last Admin: 09/26/16 02:58 Dose: 100 mls/hr Insulin Aspart (Novolog Vial Sliding Scale -) 1 vial SQ Q4HWA [facility] PRN Reason: Protocol Last Admin: 09/26/16 06:10 Dose: 18 units Insulin Detemir (Levemir Vial) 27 units SQ HS [facility] Potassium Chloride (Potassium Chloride Oral Liquid) 40 meq PO BID [facility] Last Admin: 09/25/16 22:25 Dose: 40 meq Thiamine HCl (Vitamin B1 Injection -) 200 mg IVPB DAILY [facility] Last Admin: 09/25/16 09:58 Dose: 200 mg - Objective Vital Signs: Vital Signs Vital Signs Period Temp Pulse Resp BP Sys/Gould Pulse Ox Last 24 Hr 98.1 F-99.4 F 78-106 12-18 119-146/83-103 98-100 Neurological see above Labs: CBC, BMP 09/26/16 04:00 09/26/16 04:00 INR, PTT INR 1.04 (0.82-1.09) 09/26/16 04:00 Fibrinogen > 700.0 mg/dL (238-498) H 09/23/16 15:35 Problem List Assessment/Plan 25 year old male, with a significant past medical history of asthma, who presented to the emergency department --altered mental status. Reportedly, the patient recently returned from [place] and stated he was not feeling well, but could not localize his symptoms. +cocaine use. +elevated liver enzymes, also with DKA, has been having fevers, underwent spinal tap with RBC of 70,000 and 30,000 with elevated WBC and elevated glucose and protein. initial Head CT and without acute changes. encephalopathy metabolic/infectious --DKA/RESP failure/ PNA , compounded by slow clearance of sedation given liver/renal injury) more awake today, better prognosis HD CT repeat -no sig pathology no need for EEG Dr Ching [phone] Problem List - Problems (1) Abnormal liver enzymes Code(s): R74.8 - ABNORMAL LEVELS OF OTHER SERUM ENZYMES (2) Acute renal insufficiency Code(s): N28.9 - DISORDER OF KIDNEY AND URETER, UNSPECIFIED (3) Altered mental status Code(s): R41.82 - ALTERED MENTAL STATUS, UNSPECIFIED Qualifiers: Altered mental status type: stupor Qualified Code(s): R40.1 - Stupor (4) DKA (diabetic ketoacidosis) Code(s): E13.10 - OTH DIABETES MELLITUS WITH KETOACIDOSIS WITHOUT COMA Qualifiers: Diabetes mellitus type: type 1 Diabetes mellitus complication detail: with coma Qualified Code(s): E10.11 - Type 1 diabetes mellitus with ketoacidosis with coma (5) Respiratory failure Code(s): J96.90 - RESPIRATORY FAILURE, UNSP, UNSP W HYPOXIA OR HYPERCAPNIA
--- NOTE | 2016-09-27 13:18 | PN ---
Progress Note (short form) - Note Progress Note: Extubated in the morning Awake, opens eyes to verbal command Off tube feeding Vital Signs Period Temp Pulse Resp BP Sys/Gould Pulse Ox Last 24 Hr 98.1 F-99.4 F 78-106 12-18 119-146/83-103 98-100 PE: Awake, opens eys to verbal command Neck: Supple, No JVd Lungs: CTA CVS: S1S2 Abd: benign Ext: No edema Neuro: Awake CMP Sodium 153 mmol/L (136-145) H 09/27/16 05:15 Potassium 3.7 mmol/L (3.5-5.1) 09/27/16 05:15 Chloride 117 mmol/L (98-107) H 09/27/16 05:15 Carbon Dioxide 28 mmol/L (21-32) 09/27/16 05:15 Anion Gap 8 (8-16) 09/27/16 05:15 BUN 30 mg/dL (7-18) H 09/27/16 05:15 Creatinine 2.1 mg/dL (0.7-1.3) H 09/27/16 05:15 Creat Clearance w eGFR 39.00 (>60) 09/27/16 05:15 POC Glucometer 132.69186 UNITS (()) 09/27/16 10:27 Random Glucose 120 mg/dL (74-106) H D 09/27/16 05:15 Hemoglobin A1c % 12.9 % (4.8-6.0) H 09/19/16 06:05 Serum Osmolality 350 mosm/kg (278-305) H 09/18/16 23:30 Lactic Acid 0.535 mmol/L (0.4-2.0) 09/21/16 11:00 Calcium 8.0 mg/dL (8.5-10.1) L 09/27/16 05:15 Phosphorus 3.4 mg/dL (2.5-4.9) 09/27/16 05:15 Magnesium 2.4 mg/dL (1.8-2.4) 09/27/16 05:15 Iron 10 ug/dL (38-169) L 09/23/16 17:15 TIBC 92 ug/dL (250-450) L 09/23/16 17:15 Iron Saturation 11 % (15-55) L 09/23/16 17:15 Ferritin 757.631 ng/ml (16.4-293.9) H 09/23/16 17:15 Total Bilirubin 0.4 mg/dL (0.2-1.0) D 09/27/16 05:15 Direct Bilirubin 0.1 mg/dL (0.0-0.2) D 09/26/16 04:00 GGT 864 U/L (5-85) H 09/26/16 04:00 AST 31 U/L (15-37) 09/27/16 05:15 ALT 41 U/L (12-78) 09/27/16 05:15 Alkaline Phosphatase 246 U/L (45-117) H 09/27/16 05:15 LD Total 302 U/L (87-241) H 09/25/16 05:15 Creatine Kinase 142 IU/L (39-308) 09/26/16 04:00 Creatine Kinase Index Y 09/25/16 22:55 CK-MB (CK-2) < 1.000 ng/ml (0.5-3.6) 09/25/16 22:55 CK-MB (CK-2) Rel Index Cancelled 09/25/16 22:55 Troponin I 0.02 ng/ml (0.00-0.05) 09/26/16 04:00 Prot Electrophoresis (.) 09/19/16 19:30 Serum Total Protein 4.1 g/dL (6.0-8.5) L 09/19/16 19:30 Total Protein 5.6 g/dl (6.4-8.2) L 09/27/16 05:15 Albumin 1.8 g/dl (3.4-5.0) L 09/27/16 05:15 Globulin 1.9 g/dL (2.2-3.9) L 09/19/16 19:30 Albumin/Globulin Ratio 1.2 (0.7-1.7) 09/19/16 19:30 Rdwer-7-Iwawthizy 0.2 gm/dL (0.0-0.4) 09/19/16 19:30 Haynm-0-Bnpllxyfi 0.7 gm/dL (0.4-1.0) 09/19/16 19:30 Beta Globulins 0.5 gm/dL (0.7-1.3) L 09/19/16 19:30 Gamma Globulins 0.5 gm/dL (0.4-1.8) 09/19/16 19:30 Ceruloplasmin 33.6 mg/dL (16.0-31.0) H 09/23/16 12:25 Total Amylase 98 U/L (25-115) D 09/20/16 05:40 Lipase 262 U/L (73-393) 09/20/16 05:40 Vitamin B12 3164 pg/ml (180-914) H 09/23/16 17:15 Serum Folate 8 ng/ml (3.1-17.5) 09/23/16 17:15 TSH 0.37 uIU/ml (0.358-3.74) 09/18/16 20:25 Current Medications Generic Name Dose Route Start Last Admin Trade Name Freq PRN Reason Stop Dose Admin Heparin Sodium (Porcine) 5,000 unit 09/23/16 14:00 09/27/16 05:01 Heparin - SQ 5,000 unit TID [facility] Administration IV Flush 4 ml 09/18/16 20:31 09/23/16 13:30 Triple Lumen Flush IVPUSH 4 ml PRN PRN Administration Protocol Famotidine/Sodium Chloride 50 mls @ 100 mls/hr 09/19/16 10:00 09/27/16 09:28 Pepcid 20 Mg Premixed Ivpb - IVPB 100 mls/hr BID [facility] Administration Piperacillin Sod/Tazobactam Sod 50 mls @ 100 mls/hr 09/20/16 09:00 09/27/16 09: 27 Zosyn 3.375gm Ivpb (Pre-Docked) IVPB 100 mls/hr Q8H-IV [facility] Administration Protocol Sodium Chloride 1,000 mls @ 125 mls/hr 09/27/16 08:54 09/27/16 09:26 1/2 Normal Saline IV 125 mls/hr ASDIR [facility] Administration Insulin Aspart 1 vial 09/25/16 14:00 09/27/16 10:28 Novolog Vial Sliding Scale - SQ Not Given Q4HWA [facility] Protocol Insulin Detemir 27 units 09/26/16 08:11 09/26/16 21:43 Levemir Vial SQ 27 units HS [facility] Administration Metoprolol Tartrate 25 mg 09/26/16 14:00 09/27/16 05:01 Lopressor - NGT 25 mg TID [facility] Administration Thiamine HCl 200 mg 09/19/16 10:00 09/27/16 09:29 Vitamin B1 Injection - IVPB 200 mg DAILY [facility] Administration AP: DKA: resolved, A gap normalized Blood sugar 200s A/P Respiratory failure: extubated today ? Pancreatitis: GI consult noted, Pancreas normal on CT abd Sepsis Lactic Acidosis SEAN Hypokalemia Off tube feeding Start D10W 40ml/hr, continue until patient is able to eat Acidosis resovled Decrease Levemir 15 units daily BGM Q 4Hr Decrease Novolog coverage Start D10 4o ml/hr Electrolyte replacement as necessary IV abx
[2016-09-27] MEDS ORDERED: DEXTROSE 10%-WATER - 1,000 ML IV SCH (13:30)
[2016-09-27] MEDS: DEXTROSE 5%-0.45% SALINE 1,000 ML IV SCH (14:45)
[2016-09-27] MEDS ORDERED: METOPROLOL TARTRATE 5 MG/5 ML VIAL IVPUSH PRN (20:37)
[2016-09-27] MEDS ORDERED: INSULIN DETEMIR 100 UNITS/ML MDV SQ SCH (22:00)
[2016-09-28] MEDS: PIPERACILLIN/TAZOB 3.375 GM 50 ML IVPB SCH ×3 (02:05→18:22)
[2016-09-28] MEDS: METOPROLOL TARTRATE 25 MG TABLET (FP) NGT SCH ×2 (05:42→14:48)
[2016-09-28] MEDS: HEPARIN NA (PORCINE) 5,000 UNITS/ML 1ML VIAL SQ SCH ×3 (05:44→21:14)
[2016-09-28 06:12] LABS: BASOPHIL 0.6 % (0-2.0); EOSINOPHIL 2.6 % (0-4.5); MCH 30.2 pg (25.7-33.7); MCHC 33.9 g/dl (32.0-35.9); MEAN PLT VOLUME 9.7 fl (7.5-11.1); NEUTROPHILS 67.5 % (42.8-82.8); PLATELET COUNT 194 K/MM3 (134-434); RDW 13.2 % (11.9-15.9); WHITE BLOOD COUNT 7.1 K/mm3 (4.0-10.0)
[2016-09-28] MEDS: INSULIN SLIDING SCALE (NOVOLOG) 1 VIAL SQ SCH ×3 (06:25→14:50)
[2016-09-28 07:13] LABS: CALCIUM 7.8 mg/dL (8.5-10.1); CREATININE 2.2 mg/dL (0.7-1.3); MAGNESIUM 2.4 mg/dL (1.8-2.4); PHOSPHOROUS 4.4 mg/dL (2.5-4.9)
[2016-09-28 07:28] LABS: ALBUMIN 2.1 g/dl (3.4-5.0); BILIRUBIN,TOTAL 0.5 mg/dL (0.2-1.0); TOT PROT 6.5 g/dl (6.4-8.2)
--- NOTE | 2016-09-28 08:03 | PN ---
Physical Exam: SUBJECTIVE: Patient seen and examined at bed side. Verbal follow command, sitting comfortably. family at bed side. extubated yesterdayAAOx3, able to move all ext, patient reports weakness of extremities. Denies cp, sob, N/V/D. speech swallow regular diet. Awaiting GI input on possible Jorge A disease. Ceruloplasmin 33.6 H Urine Copper 46 Ur Copper 24 Hr 285 H Ur Copper/Creat Ratio 124 H OBJECTIVE: Vital Signs Period Temp Pulse Resp BP Sys/Gould Pulse Ox Last 24 Hr 98.0 F-98.8 F 66-88 12-18 129-155/81-98 98-100 GENERAL: AAOx3,NAD HEAD: Normal with no signs of trauma. EYES: PERRL, no sclera anicteric, conjunctiva clear. No ptosis. ENT: Ears normal, nares patent, oropharynx clear without exudates, moist mucous membranes. pressure ulcer on Right ear. NECK: Trachea midline, full range of motion, supple. LUNGS: scattered rhonchi at basses , no wheezes, no crackles, no accessory muscle use. HEART: Regular rate and rhythm, S1, S2 without murmur, rub or gallop. ABDOMEN: Obese, Soft, nontender, nondistended, normoactive bowel sounds, no guarding, no rebound, no hepatosplenomegaly, no masses appreciated. swollen erthymatus excoriation of scrotum. EXTREMITIES: 2+ pulses, warm, well-perfused, no edema. NEUROLOGICAL: gag reflex present, no facial asymmetry, patient sedated SKIN: two dark purple/black the largest rectangular flat patch right forearm 2 1/2 cm x 5cm with erythematus border no change in size or color. smaller patch has blisters now Laboratory Results - last 24 hr 09/27/16 09/27/16 09/27/16 10:27 13:41 14:44 WBC RBC Hgb Hct MCV MCHC RDW Plt Count MPV Neutrophils % Lymphocytes % Monocytes % Eosinophils % Basophils % Sodium 154 H Potassium Chloride Carbon Dioxide Anion Gap BUN Creatinine Creat Clearance w eGFR POC Glucometer 132.37821 161.86256 Random Glucose Calcium Phosphorus Magnesium Total Bilirubin AST ALT Alkaline Phosphatase Total Protein Albumin Random Vancomycin 19.197 09/27/16 09/27/16 09/28/16 18:20 21:46 05:15 WBC RBC Hgb Hct MCV MCHC RDW Plt Count MPV Neutrophils % Lymphocytes % Monocytes % Eosinophils % Basophils % Sodium 152 H Potassium 3.2 L Chloride 116 H Carbon Dioxide 25 Anion Gap 11 BUN 27 H Creatinine 2.2 H Creat Clearance w eGFR 36.96 POC Glucometer 158.74276 162.94572 Random Glucose 211 H D Calcium 7.8 L Phosphorus 4.4 D Magnesium 2.4 Total Bilirubin 0.5 D AST 42 H D ALT 48 Alkaline Phosphatase 241 H Total Protein 6.5 Albumin 2.1 L Random Vancomycin 09/28/16 09/28/16 05:15 06:00 WBC 7.1 RBC 3.08 L Hgb 9.3 L Hct 27.5 L MCV 89.0 MCHC 33.9 RDW 13.2 Plt Count 194 MPV 9.7 Neutrophils % 67.5 Lymphocytes % 23.0 Monocytes % 6.3 Eosinophils % 2.6 Basophils % 0.6 Sodium Potassium Chloride Carbon Dioxide Anion Gap BUN Creatinine Creat Clearance w eGFR POC Glucometer 200.09842 Random Glucose Calcium Phosphorus Magnesium Total Bilirubin AST ALT Alkaline Phosphatase Total Protein Albumin Random Vancomycin Active Medications Generic Name Dose Route Start Last Admin Trade Name Freq PRN Reason Stop Dose Admin Heparin Sodium (Porcine) 5,000 unit 09/23/16 14:00 09/28/16 05:44 Heparin - SQ 5,000 unit TID [facility] Administration IV Flush 4 ml 09/18/16 20:31 09/23/16 13:30 Triple Lumen Flush IVPUSH 4 ml PRN PRN Administration Protocol Famotidine/Sodium Chloride 50 mls @ 100 mls/hr 09/19/16 10:00 09/27/16 21:02 Pepcid 20 Mg Premixed Ivpb - IVPB 100 mls/hr BID [facility] Administration Piperacillin Sod/Tazobactam Sod 50 mls @ 100 mls/hr 09/20/16 09:00 09/28/16 02: 05 Zosyn 3.375gm Ivpb (Pre-Docked) IVPB 100 mls/hr Q8H-IV [facility] Administration Protocol Dextrose/Sodium Chloride 1,000 mls @ 125 mls/hr 09/27/16 14:45 09/27/16 14:45 D5-1/2ns - IV 125 mls/hr ASDIR [facility] Administration Insulin Aspart 1 vial 09/27/16 13:24 09/28/16 06:25 Novolog Vial Sliding Scale - SQ 4 units Q4HWA [facility] Administration Protocol Insulin Detemir 15 units 09/27/16 22:00 09/27/16 23:38 Levemir Vial SQ 15 units HS [facility] Administration Metoprolol Tartrate 25 mg 09/26/16 14:00 09/28/16 05:42 Lopressor - NGT Not Given TID [facility] Metoprolol Tartrate 5 mg 09/27/16 20:37 Lopressor Injection - IVPUSH Q4H PRN Hypertension SBP >180 Potassium Chloride 40 meq 09/28/16 10:00 Potassium Chloride Oral Liquid PO 09/28/16 22:01 BID [facility] Thiamine HCl 200 mg 09/19/16 10:00 09/27/16 09:29 Vitamin B1 Injection - IVPB 200 mg DAILY [facility] Administration ASSESSMENT/PLAN: 25M found down with no PMH of DM presents to the ED unresponsive in DKA and sepsis shock. Leukocytosis resolved, tachy cardic, fever last night, on levophed, lactic acidosis trended down. will keep sedated for another night total of 6 days, to cover withdraw window. Awaiting GI input on possible Jorge A disease vs acute phase reactant , Ceroplasmin less reliable as it is acute phase reactant. Ceruloplasmin 33.6 H Urine Copper 46 Ur Copper 24 Hr 285 H Ur Copper/Creat Ratio 124 H Acute respiratory failure: resolved Diabetic ketoacidosis: resolved Gap closed, Metabolic acidosis resolved DM: BS still 150 to 200's, decreased ISS and levamir 15U yesterday diabetic diet BMP q4h HbA1C 12.9 Septic Shock: Resolved on Zosyn, wbc normal, afebrile, normal sinus. Cardio: Runs of VTachy 20 beats lead II and V1 on monitor family says he was coughing, back to sinus @89, BP 127/82, 12 lead EKG NS 93bpm, QTc 387, normal axes, nonspecific ST abnormality, currently NS denies cp, sob, n/v Thrombosis superficial- extended to prior US- supportive care Lactic acidosis:resolved 2/2 DKA and dehydration, hypovolemia Toxic metabolic encephalopathy -resolved Possible seizure activity when sedation is lightened, in light of history patient drinks 15 to 20 beers daily. Thrombocytopenia: Resolved less likely related to HIT HIT Ab negative Send serotonin release assay LDH elevated haptoglobin wnl restarted on Heparin DIC: Resolved . Anemia of chronic disease: could be secondary to Dm and chronic kidney injury Alcohol abuse/ withdrawal: completed 6 day of versad, currently off versed. no signs of withdrawal Polysubstance Abuse: monitor for withdrawal supportive care Acute kidney injury: slightly improving. most likely 2/2 prerenal azotemia or ATN or primary acute on chronic kidney disease or toxin induced. IVF follow kidney function HUS less likely, but given haptoglobin normal and no evidence of hemolysis it is unlikely called hematology lab to do a peripheral smear and will follow it up will recheck LDH as it was elevated but it could also be elevate due to other reasons such as sepsis Transaminitis improving, questionable history of Liver disease, alcohol, drug, Tylenol use, possibly secondary to shock fatty liver on US: alcoholism vs obesity IVF CT Abdomen pelvis with po contrast can not give IV contrast as patient is in renal failure. possible Jorge A disease pancreatitis less likely, no evidence on Ct, Lipase elevated on admission currently trended back down. IVF Hematuria:resolved, 2/2 traumatic arnold insertion Hypernatremia: not responding to free water. awaiting repeat labs and Dr. Caba will adjust free water and fluids. Free water def 7.5L D5W No lasix Microcytic anemia: f/u Iron studies B12 Folate-elevated Asthma: duonebs intubated at this time FEN: D5W free water increased oral hydration replete potassium for hypokalemia diebetic diet PPx: Heparin sq tid, heparin antibody negative Pepcid No PT consult at this time dispo: continue ICU monitoring Visit type - Emergency Visit Emergency Visit: Yes ED Registration Date: 09/18/16 Care time: The patient presented to the Emergency Department on the above date and was hospitalized for further evaluation of their emergent condition. - New Patient This patient is new to me today: No - Critical Care Critical Care patient: Yes Total Critical Care Time (in minutes): 46 Critical Care Statement: The care of this patient involved high complexity decision making to prevent further life threatening deterioration of the patient 's condition and/or to evalute & treat vital organ system(s) failure or risk of failure.
--- NOTE | 2016-09-28 09:02 | PN ---
Progress Note, Physician History of Present Illness: Renal f/u Pt in no distress off the ventilator He is awake and reponsive and now able to follow commands He remains NPO - Current Medication List Current Medications: Active Medications Heparin Sodium (Porcine) (Heparin -) 5,000 unit SQ TID [facility] Last Admin: 09/28/16 05:44 Dose: 5,000 unit IV Flush (Triple Lumen Flush) 4 ml IVPUSH PRN PRN PRN Reason: Protocol Last Admin: 09/23/16 13:30 Dose: 4 ml Famotidine/Sodium Chloride (Pepcid 20 Mg Premixed Ivpb -) 50 mls @ 100 mls/hr IVPB BID [facility] Last Admin: 09/27/16 21:02 Dose: 100 mls/hr Piperacillin Sod/Tazobactam Sod (Zosyn 3.375gm Ivpb (Pre-Docked)) 50 mls @ 100 mls/hr IVPB Q8H-IV [facility] PRN Reason: Protocol Last Admin: 09/28/16 02:05 Dose: 100 mls/hr Dextrose/Sodium Chloride (D5-1/2ns -) 1,000 mls @ 125 mls/hr IV ASDIR [facility] Last Admin: 09/27/16 14:45 Dose: 125 mls/hr Insulin Aspart (Novolog Vial Sliding Scale -) 1 vial SQ Q4HWA [facility] PRN Reason: Protocol Last Admin: 09/28/16 06:25 Dose: 4 units Insulin Detemir (Levemir Vial) 15 units SQ HS [facility] Last Admin: 09/27/16 23:38 Dose: 15 units Metoprolol Tartrate (Lopressor -) 25 mg NGT TID [facility] Last Admin: 09/28/16 05:42 Dose: Not Given Metoprolol Tartrate (Lopressor Injection -) 5 mg IVPUSH Q4H PRN PRN Reason: Hypertension SBP >180 Potassium Chloride (Potassium Chloride Oral Liquid) 40 meq PO BID [facility] Stop: 09/28/16 22:01 Potassium Chloride (Potassium Chloride 20 Meq Premix Ivpb -) 20 meq IVPB Q60M [facility] Stop: 09/28/16 11:01 Thiamine HCl (Vitamin B1 Injection -) 200 mg IVPB DAILY [facility] Last Admin: 09/27/16 09:29 Dose: 200 mg - Objective Vital Signs: Vital Signs Temperature 98.0 F 09/28/16 05:41 Pulse Rate 83 09/28/16 05:41 Respiratory Rate 18 09/28/16 05:41 Blood Pressure 136/93 09/28/16 05:41 O2 Sat by Pulse Oximetry (%) 98 09/27/16 23:07 Constitutional: Yes: No Distress Cardiovascular: Yes: S1, S2 Respiratory: Yes: CTA Bilaterally Gastrointestinal: Yes: Abdomen, Obese. No: Tenderness, Rebound Edema: No Labs: CBC, BMP 09/28/16 05:15 09/28/16 05:15 INR, PTT INR 1.04 (0.82-1.09) 09/26/16 04:00 Fibrinogen > 700.0 mg/dL (238-498) H 09/23/16 15:35 Assessment/Plan Impression 1. SEAN with hypernatremia slowly improving 2. Acute respiratory failure requiring intubation 3. HTN 4. DKA with sepsis and lactic acidosis 5. Cocaine and etoh abuse - active 6. Hypokalemia Plan Swallowing evaluation If pt able to swallow encourage PO water ie) 250 cc q 6h Continue with present IVF for now Replace K Rpt labs in am Discussed with Residents in the ICU Dr Tobias
--- NOTE | 2016-09-28 09:14 | PN ---
Progress Note (short form) - Note Progress Note: extubated yesterday nad Vital Signs Period Temp Pulse Resp BP Sys/Gould Pulse Ox Last 24 Hr 98.0 F-98.8 F 66-88 12-18 129-155/81-98 98-100 cor-rrr llungs clear abd soft, nt ext no edema arnold left IJ CVP CBC, BMP 09/28/16 05:15 09/28/16 05:15 Microbiology 09/24/16 18:05 Salmonella/Shigella Culture - Final Stool NO GROWTH OF SALMONELLA OR SHIGELLA SPECIES OBTAINED Campylobacter Culture - Final NO GROWTH OF CAMPYLOBACTER SPECIES OBTAINED Yersinia Culture - Final NO GROWTH OF YERSINIA SPECIES OBTAINED Vibrio Culture - Final NO GROWTH OF VIBRIO SPECIES OBTAINED Escherichia coli 0157 Culture - Final NO GROWTH OF E COLI 0157 OBTAINED a/p DKA sinusitis SEAN etoh use, abnl LFTS continue vancomycin based on levels, continue zosyn overall improving consider d/c arnold, d/c cvp if peripheral acess can be placed he has no recollection of events at home or in [place] does admit to skin popping cocaine Problem List - Problems (1) DKA (diabetic ketoacidosis) Code(s): E13.10 - OTH DIABETES MELLITUS WITH KETOACIDOSIS WITHOUT COMA Qualifiers: Diabetes mellitus type: type 1 Diabetes mellitus complication detail: with coma Qualified Code(s): E10.11 - Type 1 diabetes mellitus with ketoacidosis with coma (2) Acute renal insufficiency Code(s): N28.9 - DISORDER OF KIDNEY AND URETER, UNSPECIFIED (3) Respiratory failure Code(s): J96.90 - RESPIRATORY FAILURE, UNSP, UNSP W HYPOXIA OR HYPERCAPNIA (4) Leukocytosis Code(s): D72.829 - ELEVATED WHITE BLOOD CELL COUNT, UNSPECIFIED
[2016-09-28] MEDS: THIAMINE HCL 200 MG/2 ML VIAL IVPB SCH (09:57)
[2016-09-28] MEDS: FAMOTIDINE 20 MG/50 ML IVPB 50 ML IVPB SCH ×2 (09:58→21:13)
[2016-09-28] MEDS ORDERED: POTASSIUM CHLORIDE ORAL LIQUID 20 MEQ/15 ML PO SCH ×2 (10:00→22:00)
--- NOTE | 2016-09-28 10:03 | PN ---
Progress Note (short form) - Note Progress Note: Extubated yesterday awake, alert BGM 200s ,No hypost Vital Signs Period Temp Pulse Resp BP Sys/Gould Pulse Ox Last 24 Hr 98.0 F-98.8 F 66-88 12-18 129-155/81-98 98-100 PE: Awake, opens eys to verbal command Neck: Supple, No JVd Lungs: CTA CVS: S1S2 Abd: benign Ext: No edema Neuro: Awake CMP Sodium 152 mmol/L (136-145) H 09/28/16 05:15 Potassium 3.2 mmol/L (3.5-5.1) L 09/28/16 05:15 Chloride 116 mmol/L (98-107) H 09/28/16 05:15 Carbon Dioxide 25 mmol/L (21-32) 09/28/16 05:15 Anion Gap 11 (8-16) 09/28/16 05:15 BUN 27 mg/dL (7-18) H 09/28/16 05:15 Creatinine 2.2 mg/dL (0.7-1.3) H 09/28/16 05:15 Creat Clearance w eGFR 36.96 (>60) 09/28/16 05:15 POC Glucometer 200.48031 UNITS (()) 09/28/16 06:00 Random Glucose 211 mg/dL (74-106) H D 09/28/16 05:15 Hemoglobin A1c % 12.9 % (4.8-6.0) H 09/19/16 06:05 Serum Osmolality 350 mosm/kg (278-305) H 09/18/16 23:30 Lactic Acid 0.535 mmol/L (0.4-2.0) 09/21/16 11:00 Calcium 7.8 mg/dL (8.5-10.1) L 09/28/16 05:15 Phosphorus 4.4 mg/dL (2.5-4.9) D 09/28/16 05:15 Magnesium 2.4 mg/dL (1.8-2.4) 09/28/16 05:15 Iron 10 ug/dL (38-169) L 09/23/16 17:15 TIBC 92 ug/dL (250-450) L 09/23/16 17:15 Iron Saturation 11 % (15-55) L 09/23/16 17:15 Ferritin 757.631 ng/ml (16.4-293.9) H 09/23/16 17:15 Total Bilirubin 0.5 mg/dL (0.2-1.0) D 09/28/16 05:15 Direct Bilirubin 0.1 mg/dL (0.0-0.2) D 09/26/16 04:00 GGT 864 U/L (5-85) H 09/26/16 04:00 AST 42 U/L (15-37) H D 09/28/16 05:15 ALT 48 U/L (12-78) 09/28/16 05:15 Alkaline Phosphatase 241 U/L (45-117) H 09/28/16 05:15 LD Total 302 U/L (87-241) H 09/25/16 05:15 Creatine Kinase 142 IU/L (39-308) 09/26/16 04:00 Creatine Kinase Index Y 09/25/16 22:55 CK-MB (CK-2) < 1.000 ng/ml (0.5-3.6) 09/25/16 22:55 CK-MB (CK-2) Rel Index Cancelled 09/25/16 22:55 Troponin I 0.02 ng/ml (0.00-0.05) 09/26/16 04:00 Prot Electrophoresis (.) 09/19/16 19:30 Serum Total Protein 4.1 g/dL (6.0-8.5) L 09/19/16 19:30 Total Protein 6.5 g/dl (6.4-8.2) 09/28/16 05:15 Albumin 2.1 g/dl (3.4-5.0) L 09/28/16 05:15 Globulin 1.9 g/dL (2.2-3.9) L 09/19/16 19:30 Albumin/Globulin Ratio 1.2 (0.7-1.7) 09/19/16 19:30 Vykkz-2-Gyrobyhls 0.2 gm/dL (0.0-0.4) 09/19/16 19:30 Dirhl-3-Jvbjuaakx 0.7 gm/dL (0.4-1.0) 09/19/16 19:30 Beta Globulins 0.5 gm/dL (0.7-1.3) L 09/19/16 19:30 Gamma Globulins 0.5 gm/dL (0.4-1.8) 09/19/16 19:30 Ceruloplasmin 33.6 mg/dL (16.0-31.0) H 09/23/16 12:25 Total Amylase 98 U/L (25-115) D 09/20/16 05:40 Lipase 262 U/L (73-393) 09/20/16 05:40 Vitamin B12 3164 pg/ml (180-914) H 09/23/16 17:15 Serum Folate 8 ng/ml (3.1-17.5) 09/23/16 17:15 TSH 0.37 uIU/ml (0.358-3.74) 09/18/16 20:25 Current Medications Generic Name Dose Route Start Last Admin Trade Name Freq PRN Reason Stop Dose Admin Heparin Sodium (Porcine) 5,000 unit 09/23/16 14:00 09/28/16 05:44 Heparin - SQ 5,000 unit TID SILVER Administration IV Flush 4 ml 09/18/16 20:31 09/23/16 13:30 Triple Lumen Flush IVPUSH 4 ml PRN PRN Administration Protocol Famotidine/Sodium Chloride 50 mls @ 100 mls/hr 09/19/16 10:00 09/27/16 21:02 Pepcid 20 Mg Premixed Ivpb - IVPB 100 mls/hr BID SILVER Administration Piperacillin Sod/Tazobactam Sod 50 mls @ 100 mls/hr 09/20/16 09:00 09/28/16 02: 05 Zosyn 3.375gm Ivpb (Pre-Docked) IVPB 100 mls/hr Q8H-IV SILVER Administration Protocol Dextrose/Sodium Chloride 1,000 mls @ 125 mls/hr 09/27/16 14:45 09/27/16 14:45 D5-1/2ns - IV 125 mls/hr ASDIR SILVER Administration Vancomycin HCl 1,500 mg/ 250 mls @ 166.667 mls/hr 09/28/16 09:30 Dextrose IVPB 09/28/16 10:59 ONCE ONE Insulin Aspart 1 vial 09/27/16 13:24 09/28/16 06:25 Novolog Vial Sliding Scale - SQ 4 units Q4HWA SILVER Administration Protocol Insulin Detemir 15 units 09/27/16 22:00 09/27/16 23:38 Levemir Vial SQ 15 units HS [facility] Administration Metoprolol Tartrate 25 mg 09/26/16 14:00 09/28/16 05:42 Lopressor - NGT Not Given TID [facility] Metoprolol Tartrate 5 mg 09/27/16 20:37 Lopressor Injection - IVPUSH Q4H PRN Hypertension SBP >180 Potassium Chloride 40 meq 09/28/16 10:00 Potassium Chloride Oral Liquid PO 09/28/16 22:01 BID [facility] Potassium Chloride 20 meq 09/28/16 09:00 Potassium Chloride 20 Meq Premix Ivpb - IVPB 09/28/16 11:01 Q60M [facility] Thiamine HCl 200 mg 09/19/16 10:00 09/27/16 09:29 Vitamin B1 Injection - IVPB 200 mg DAILY SILVER Administration AP: DKA: resolved, A gap normalized Blood sugar 200s S/P Respiratory failure: s/p Extubation ? Pancreatitis: GI consult noted, Pancreas normal on CT abd Sepsis Lactic Acidosis SEAN Hypokalemia Hypernatremia Off tube feeding On D5 1/2NS 125 ml/hr, continue until patient is able to eat Acidosis resovled Increase Levemir 18 units daily BGM Q 4Hr Novolog coverage Electrolyte replacement as necessary IV abx
--- NOTE | 2016-09-28 10:10 | CONSULT ---
Admitting History and Physical - Primary Care Physician PCP: Mukesh Ronquillo - Admission History of Present Illness: 25 Y/O Male found unresponsive with acute respiratory failure, multifactorial, possible drugs, metabolic acidosis, ARDS vs PNA. Intubated/extubated 09/27 DM with ketoacidosis with delirium. Mental stasis said to be improving. History Source: Patient, Medical Record Limitations to Obtaining History: Clinical Condition - Past Medical History Pulmonary: Yes: Asthma Gastrointestinal: Yes: Other (hepatomegaly with fatty liver likely due to alcohol) Psych: Yes: Addictions (cocaine and alcohol) - Smoking History Smoking history: Unknown if ever smoked Have you smoked in the past 12 months: No - Alcohol/Substance Use Hx Alcohol Use: Yes (beer daily) History of Substance Use: reports: Cocaine History - Admission Reason For Visit: DKA, LACTIC ACIDOSIS,ALTERED MENTAL STATUS - Diagnostics X-ray: Report Reviewed CT Scan: Report Reviewed ((-) infarct) - General Mental Status: Awake and Alert, Forgetful, Vague, Confused Attention: Distractible, Moderate Impairment Head/Neck Control: WFL - Hearing Hearing: Normal Hearing Aide: No With Patient: No Speech Evaluation - Communication Primary Language: OCCITAN Communication: Yes: Simple Responses (Rambles at times with intelligible words, not making sense, per tear down matcher. Confrontation naming accurate on simple level) , Language Barrier - Speech Production Able to Make Needs Known: Yes: Moderately Impaired, Severely Impaired Intelligibility: Yes: WNL - Speech Characteristics Voice Loudness: Mildly Soft/Quiet Voice Pitch: Yes: Normal Voice Phonatory-based Quality: Yes: Normal Speech Pattern: Impaired Speech Clarity: < 25% Nasal Resonance: Normal Articulation: Yes: Precise - Language/Auditory Comprehension Observation: Able to respond to yes/no queries: No (inconsistent and unreliable) , Comprehends Conversational Speech: No (simple), Benefits from Slow Speech: Yes , Benefits from Repetiton: Yes, Benefits from Increased Volume of Speech: Yes ( possibly?) - Language/Verbal Expression Able to Respond to Simple Queries: Yes: Moderately Impaired, Severely Impaired Able to Communicate Wants and Needs: Yes: Moderately Impaired, Severely Impaired Functional Communication Status: Yes: Moderately Impaired, Severely Impaired - Swallow Evaluation/Bedside Assessment Current Nutritional Intake: NPO Oral Secretions: Yes: WFL Dentition: Yes: Adequate Facial Symmetry at Rest: Symmetrical Facial Symmetry on Retraction: Symmetrical Facial Movement: Controlled Pucker Lips: Normal Smile: Normal Lingual Movement: Normal Lingual Speed of Movement: Normal Lingual Movement Strgth Against Opposition: Normal Lingual Movement Characteristics: Normal Velopharyngeal Movement: Normal Laryngeal Elevation: WFL Laryngeal Movement: Able to Palpate Bolus Size: WFL Labial Seal: WFL Chewing: WFL Oral Prep Time: WFL A-P Transit: WFL Pocketing: None Timing of Swallow: WFL Coughing/Throat Clear: No Change in Voice: No Recommendations - Speech Evaluation, Impression/Plan Impression: Impaired language function, (comprehension <expression) likely secondary to delerium which is improving. Oriented to ,[facility],from [place]. Swallowing overtly intact. Brisk laryngeal swallow, good voicing. - Dysphagia Impressions/Plan Swallowing Skills: WF Dysphagia Impressions: Ongoing Evaluation *Silent aspiration: cannot be R/O at bedside Recommendations: Other (Trial Po with assistance. Monitor tolerance.) - Recommendations Diet Consistency: Regular Medication Administration: Whole with water Liquids: Thin Liquids
--- NOTE | 2016-09-28 12:13 | PN ---
Teaching Attending Note Name of Resident: Pilo Gonzales ATTENDING PHYSICIAN STATEMENT I saw and evaluated the patient. I reviewed the resident's note and discussed the case with the resident. I agree with the resident's findings and plan as documented. SUBJECTIVE: Patient seen and examined in the ICU. Remains extubated. Awake and responsive (mildly confused). Intake & Output 09/25/16 09/26/16 09/27/16 09/28/16 23:59 23:59 23:59 23:59 Intake Total 4220 2600 3830 1650 Output Total 4250 1800 4700 900 Balance -30 800 -870 750 Weight 215 lb 7 oz 209 lb 7 oz 198 lb 9 oz 189 lb 6.033 oz Last Vital Signs Temp Pulse Resp BP Pulse Ox 98.0 F 83 18 136/93 98 09/28/16 05:41 09/28/16 05:41 09/28/16 05:41 09/28/16 05:41 09/27/16 23:07 Active Medications Heparin Sodium (Porcine) (Heparin -) 5,000 unit SQ TID [facility] Last Admin: 09/28/16 05:44 Dose: 5,000 unit IV Flush (Triple Lumen Flush) 4 ml IVPUSH PRN PRN PRN Reason: Protocol Last Admin: 09/23/16 13:30 Dose: 4 ml Famotidine/Sodium Chloride (Pepcid 20 Mg Premixed Ivpb -) 50 mls @ 100 mls/hr IVPB BID [facility] Last Admin: 09/28/16 09:58 Dose: 100 mls/hr Piperacillin Sod/Tazobactam Sod (Zosyn 3.375gm Ivpb (Pre-Docked)) 50 mls @ 100 mls/hr IVPB Q8H-IV SILVER PRN Reason: Protocol Last Admin: 09/28/16 09:58 Dose: 100 mls/hr Dextrose/Sodium Chloride (D5-1/2ns -) 1,000 mls @ 125 mls/hr IV ASDIR [facility] Last Admin: 09/27/16 14:45 Dose: 125 mls/hr Insulin Aspart (Novolog Vial Sliding Scale -) 1 vial SQ Q4HWA SILVER PRN Reason: Protocol Last Admin: 09/28/16 10:29 Dose: 6 units Insulin Detemir (Levemir Vial) 18 units SQ HS [facility] Metoprolol Tartrate (Lopressor -) 25 mg NGT TID [facility] Last Admin: 09/28/16 05:42 Dose: Not Given Metoprolol Tartrate (Lopressor Injection -) 5 mg IVPUSH Q4H PRN PRN Reason: Hypertension SBP >180 Potassium Chloride (Potassium Chloride Oral Liquid) 40 meq PO BID [facility] Stop: 09/28/16 22:01 Last Admin: 09/28/16 11:14 Dose: 40 meq Thiamine HCl (Vitamin B1 Injection -) 200 mg IVPB DAILY [facility] Last Admin: 09/28/16 09:57 Dose: 200 mg Gen: Extubated, responsive, mildly confused Heart: regular Lung: scattered rhonchi Abd: soft, nontender Ext: decreasing edema Laboratory Results - last 24 hr 09/27/16 09/27/16 09/27/16 13:41 14:44 18:20 WBC RBC Hgb Hct MCV MCHC RDW Plt Count MPV Neutrophils % Lymphocytes % Monocytes % Eosinophils % Basophils % Sodium 154 H Potassium Chloride Carbon Dioxide Anion Gap BUN Creatinine Creat Clearance w eGFR POC Glucometer 161.07126 158.92773 Random Glucose Calcium Phosphorus Magnesium Total Bilirubin AST ALT Alkaline Phosphatase Total Protein Albumin Random Vancomycin 19.197 09/27/16 09/28/16 09/28/16 21:46 05:15 05:15 WBC 7.1 RBC 3.08 L Hgb 9.3 L Hct 27.5 L MCV 89.0 MCHC 33.9 RDW 13.2 Plt Count 194 MPV 9.7 Neutrophils % 67.5 Lymphocytes % 23.0 Monocytes % 6.3 Eosinophils % 2.6 Basophils % 0.6 Sodium 152 H Potassium 3.2 L Chloride 116 H Carbon Dioxide 25 Anion Gap 11 BUN 27 H Creatinine 2.2 H Creat Clearance w eGFR 36.96 POC Glucometer 162.88309 Random Glucose 211 H D Calcium 7.8 L Phosphorus 4.4 D Magnesium 2.4 Total Bilirubin 0.5 D AST 42 H D ALT 48 Alkaline Phosphatase 241 H Total Protein 6.5 Albumin 2.1 L Random Vancomycin 10.336 09/28/16 09/28/16 06:00 10:25 WBC RBC Hgb Hct MCV MCHC RDW Plt Count MPV Neutrophils % Lymphocytes % Monocytes % Eosinophils % Basophils % Sodium Potassium Chloride Carbon Dioxide Anion Gap BUN Creatinine Creat Clearance w eGFR POC Glucometer 200.06075 238.03915 Random Glucose Calcium Phosphorus Magnesium Total Bilirubin AST ALT Alkaline Phosphatase Total Protein Albumin Random Vancomycin ASSESSMENT AND PLAN: Acute Respiratory Failure Polysubstance Abuse Diabetic Ketoacidosis resolving Metabolic Acidosis Septic Shock Acute Kidney Injury Lactic Acidosis resolved Elevated LFTs ?Alcohol Withdrawal Volume Overload - ABX per ID - PO as tolerated - free water - D/C arnold - replete lytes - DVT/GI prophylaxis Critical care time spent in reviewing chart, evaluating patient and formulating plan [address] Moran
--- NOTE | 2016-09-28 12:47 | PN ---
Teaching Attending Note Name of Resident: Danny Shine ATTENDING PHYSICIAN STATEMENT I saw and evaluated the patient. I reviewed the resident's note and discussed the case with the resident. I agree with the resident's findings and plan as documented. SUBJECTIVE: no fever or chills , no abd pain . no SOB . OBJECTIVE: Awake , alert , answers questions , knows he is in a hospital , knows year and his age . HEENT: round equal pupils , reactive to light , no JVD, R IJ in, rash around R IJ. Cv; RRR, NL S1, S2, no MRG, no JVD Lungs: Rales at bases . Abd ; soft, NL BS Ext : 1+ pitting edema on feet . 2 areas of black coloration on R fore arm with ( 4x3 cm , and 1x1 cm . ) with mm surrounding erythema . R upepr ext edema improved Neuro : not very cooperative , awake , alert, round equal pupils , reactive to light , no facial droop, tongue at mid line , moves arms and legs ,strength 5/5 in biceps and triceps , hip flexion b/l . reflexes 2+ knee jerk , 1+ biceps b/l . ASSESSMENT AND PLAN: 25 y/o man with h/o Asthma who presented after being found down, he was found to be in DKA, developed Acute resp failure , an also was found tohave metabolic acidosis, LFTs abnormalities and eleated lipase. 1- Acute resp failure: PNA vs ARDS. Extubated now - cont NC - cont abx 2- DKA : resolved , AG closed. - cont levemir( 18 u) and cont SSi q 4 h - D51/2 NS until he has nl food intake 3- Hypernatremia: improved Free water deficit today 3.6 L . - cont d51/2 NS - encourage free water intake 4-Severe Sepsis/septic shock resolved : source could be PNA , also sinusitis - cont zosyn and vanco 5- SEAN, likely has CKD : improved cr. cont to monitor . will rich further w/u as out pt 6- Transaminitis ; multifactorial, stable 7- Normocytic anemia : ACD no evidence of active bleeding or hemolysis 8 - DIC : likely due to severe sepsis. - resolved now 9- b/l superficial thrombophlebitis in upper extremities which expaneded will repeat US today speech eval Transfer to floor
--- NOTE | 2016-09-28 13:26 | PN ---
Progress Note (short form) - Note Progress Note: Neurology The patient is a 25 year old male, with a significant past medical history of asthma, who presented to the emergency department several days ago for altered mental status. Reportedly, the patient recently returned from [place] and stated he was not feeling well, but could not localize his symptoms. The patient has a history of cocaine use. Spoke to resident and the patient has had elevated liver enzymes, also with DKA, has been having fevers, underwent spinal tap with RBC of 70,000 and 30,000 with elevated WBC and elevated glucose and protein. Sedation weaned off during weekend, extubated and patient now awake, alert, cooperative. Knows he's in the hospital but still with some cognitive difficulty when asked the date and name of President. Active Medications Heparin Sodium (Porcine) (Heparin -) 5,000 unit SQ TID [facility] Last Admin: 09/28/16 05:44 Dose: 5,000 unit IV Flush (Triple Lumen Flush) 4 ml IVPUSH PRN PRN PRN Reason: Protocol Last Admin: 09/23/16 13:30 Dose: 4 ml Famotidine/Sodium Chloride (Pepcid 20 Mg Premixed Ivpb -) 50 mls @ 100 mls/hr IVPB BID [facility] Last Admin: 09/28/16 09:58 Dose: 100 mls/hr Piperacillin Sod/Tazobactam Sod (Zosyn 3.375gm Ivpb (Pre-Docked)) 50 mls @ 100 mls/hr IVPB Q8H-IV [facility]IL[facility] PRN Reason: Protocol Last Admin: 09/28/16 09:58 Dose: 100 mls/hr Dextrose/Sodium Chloride (D5-1/2ns -) 1,000 mls @ 125 mls/hr IV ASDIR [facility] Last Admin: 09/27/16 14:45 Dose: 125 mls/hr Insulin Aspart (Novolog Vial Sliding Scale -) 1 vial SQ Q4HWA SILVER PRN Reason: Protocol Last Admin: 09/28/16 10:29 Dose: 6 units Insulin Detemir (Levemir Vial) 18 units SQ HS [facility] Metoprolol Tartrate (Lopressor -) 25 mg NGT TID [facility] Last Admin: 09/28/16 05:42 Dose: Not Given Metoprolol Tartrate (Lopressor Injection -) 5 mg IVPUSH Q4H PRN PRN Reason: Hypertension SBP >180 Potassium Chloride (Potassium Chloride Oral Liquid) 40 meq PO BID [facility] Stop: 09/28/16 22:01 Last Admin: 09/28/16 11:14 Dose: 40 meq Thiamine HCl (Vitamin B1 Injection -) 200 mg IVPB DAILY [facility] Last Admin: 09/28/16 09:57 Dose: 200 mg *Physical Exam Vital Signs Temperature 98.0 F 09/28/16 05:41 Pulse Rate 83 09/28/16 05:41 Respiratory Rate 18 09/28/16 05:41 Blood Pressure 136/93 09/28/16 05:41 O2 Sat by Pulse Oximetry (%) 94 L 09/28/16 09:00 GENERAL: Difficult to arouse even with painful stimuli HEAD: No signs of trauma EYES: Pupils small but reactive, EOMI, sclera anicteric, conjunctiva clear ENT: Auricles normal inspection, hearing grossly normal, nares patent, oropharynx clear without exudates. Moist mucosa NECK: Normal ROM, supple, no lymphadenopathy, JVD, or masses LUNGS: Respiration is kuz-mal. No wheezes, and no crackles HEART: Regular rate and rhythm, normal S1 and S2, no murmurs, rubs or gallops ABDOMEN: Tender and slightly firm. Normoactive bowel sounds. No guarding, no rebound. No masses EXTREMITIES: Normal range of motion, no edema. No clubbing or cyanosis. No cords, erythema, or tenderness NEUROLOGICAL: Responds to painful nail bed pressure, not verbal, overbreathing vent. CBCD WBC 7.1 K/mm3 (4.0-10.0) 09/28/16 05:15 RBC 3.08 M/mm3 (4.00-5.60) L 09/28/16 05:15 Hgb 9.3 GM/dL (11.7-16.9) L 09/28/16 05:15 Hct 27.5 % (35.4-49) L 09/28/16 05:15 MCV 89.0 fl (80-96) 09/28/16 05:15 MCHC 33.9 g/dl (32.0-35.9) 09/28/16 05:15 RDW 13.2 % (11.9-15.9) 09/28/16 05:15 Plt Count 194 K/MM3 (134-434) 09/28/16 05:15 MPV 9.7 fl (7.5-11.1) 09/28/16 05:15 CMP Sodium 152 mmol/L (136-145) H 09/28/16 05:15 Potassium 3.2 mmol/L (3.5-5.1) L 09/28/16 05:15 Chloride 116 mmol/L (98-107) H 09/28/16 05:15 Carbon Dioxide 25 mmol/L (21-32) 09/28/16 05:15 Anion Gap 11 (8-16) 09/28/16 05:15 BUN 27 mg/dL (7-18) H 09/28/16 05:15 Creatinine 2.2 mg/dL (0.7-1.3) H 09/28/16 05:15 Creat Clearance w eGFR 36.96 (>60) 09/28/16 05:15 Calcium 7.8 mg/dL (8.5-10.1) L 09/28/16 05:15 Total Bilirubin 0.5 mg/dL (0.2-1.0) D 09/28/16 05:15 AST 42 U/L (15-37) H D 09/28/16 05:15 ALT 48 U/L (12-78) 09/28/16 05:15 Alkaline Phosphatase 241 U/L (45-117) H 09/28/16 05:15 Total Protein 6.5 g/dl (6.4-8.2) 09/28/16 05:15 Albumin 2.1 g/dl (3.4-5.0) L 09/28/16 05:15 Medical Decision Making 25 year old male, with a significant past medical history of asthma, who presented to the emergency department several days ago for altered mental status. Reportedly, the patient recently returned from [place] and stated he was not feeling well, but could not localize his symptoms. The patient has a history of cocaine use. Spoke to resident and the patient has had elevated liver enzymes, also with DKA, has been having fevers, underwent spinal tap with RBC of 70,000 and 30,000 with elevated WBC and elevated glucose and protein. Sedation weaned off during weekend, extubated and patient now awake, alert, cooperative. Knows he's in the hospital but still with some cognitive difficulty. Continue medical mgmt. Much improved mental status but still not fully at baseline. Monitor for withdrawal.
--- NOTE | 2016-09-28 14:32 | PN ---
Physical Exam: SUBJECTIVE: Patient seen and examined at bedside in ICU mental status much improved extubated OBJECTIVE: Vital Signs Period Temp Pulse Resp BP Sys/Gould Pulse Ox Last 24 Hr 98.0 F-98.8 F 66-88 16-20 129-155/81-98 94-98 GENERAL: alert awake and orientated to place self and year HEAD: Normal with no signs of trauma. EYES: Pupils equal, round and reactive to light EARS, NOSE, THROAT:Moist mucous membranes. NECK: No JVD. Central line in place no surrounding erythema LUNGS: . bibasilar rales HEART: RRR S1 S2 no murmurs rubs or gallops ABDOMEN: Soft, nontender, not distended +BS UPPER EXTREMITIES: warm, well-perfused. 1+ pitting edema. on the right forearm there are 2 area of what appears to be necrosis with surrounding erythema LOWER EXTREMITIES: warm, well-perfused. Trace non pitting edema NEURO: strength 5/5 : arnold in place Laboratory Results - last 24 hr 09/24/16 09/27/16 09/27/16 05:45 14:44 18:20 WBC RBC Hgb Hct MCV MCHC RDW Plt Count MPV Neutrophils % Lymphocytes % Monocytes % Eosinophils % Basophils % [id number] Activity >100 Sodium Potassium Chloride Carbon Dioxide Anion Gap BUN Creatinine Creat Clearance w eGFR POC Glucometer [phone] Random Glucose Calcium Phosphorus Magnesium Total Bilirubin AST ALT Alkaline Phosphatase Total Protein Albumin Random Vancomycin 09/27/16 09/28/16 09/28/16 21:46 05:15 05:15 WBC 7.1 RBC 3.08 L Hgb 9.3 L Hct 27.5 L MCV 89.0 MCHC 33.9 RDW 13.2 Plt Count 194 MPV 9.7 Neutrophils % 67.5 Lymphocytes % 23.0 Monocytes % 6.3 Eosinophils % 2.6 Basophils % 0.6 [id number] Activity Sodium 152 H Potassium 3.2 L Chloride 116 H Carbon Dioxide 25 Anion Gap 11 BUN 27 H Creatinine 2.2 H Creat Clearance w eGFR 36.96 POC Glucometer 162.12510 Random Glucose 211 H D Calcium 7.8 L Phosphorus 4.4 D Magnesium 2.4 Total Bilirubin 0.5 D AST 42 H D ALT 48 Alkaline Phosphatase 241 H Total Protein 6.5 Albumin 2.1 L Random Vancomycin 10.336 09/28/16 09/28/16 06:00 10:25 WBC RBC Hgb Hct MCV MCHC RDW Plt Count MPV Neutrophils % Lymphocytes % Monocytes % Eosinophils % Basophils % [id number] Activity Sodium Potassium Chloride Carbon Dioxide Anion Gap BUN Creatinine Creat Clearance w eGFR POC Glucometer 200.13371 238.36854 Random Glucose Calcium Phosphorus Magnesium Total Bilirubin AST ALT Alkaline Phosphatase Total Protein Albumin Random Vancomycin Active Medications Generic Name Dose Route Start Last Admin Trade Name Freq PRN Reason Stop Dose Admin Heparin Sodium (Porcine) 5,000 unit 09/23/16 14:00 09/28/16 05:44 Heparin - SQ 5,000 unit TID SILVER Administration IV Flush 4 ml 09/18/16 20:31 09/23/16 13:30 Triple Lumen Flush IVPUSH 4 ml PRN PRN Administration Protocol Famotidine/Sodium Chloride 50 mls @ 100 mls/hr 09/19/16 10:00 09/28/16 09:58 Pepcid 20 Mg Premixed Ivpb - IVPB 100 mls/hr BID SILVER Administration Piperacillin Sod/Tazobactam Sod 50 mls @ 100 mls/hr 09/20/16 09:00 09/28/16 09: 58 Zosyn 3.375gm Ivpb (Pre-Docked) IVPB 100 mls/hr Q8H-IV SILVER Administration Protocol Dextrose/Sodium Chloride 1,000 mls @ 125 mls/hr 09/27/16 14:45 09/27/16 14:45 D5-1/2ns - IV 125 mls/hr ASDIR SILVER Administration Insulin Aspart 1 vial 09/27/16 13:24 09/28/16 10:29 Novolog Vial Sliding Scale - SQ 6 units [id number] SILVER Administration Protocol Insulin Detemir 18 units 09/28/16 22:00 Levemir Vial SQ HS SILVER Metoprolol Tartrate 25 mg 09/26/16 14:00 09/28/16 05:42 Lopressor - NGT Not Given TID SILVER Potassium Chloride 40 meq 09/28/16 10:00 09/28/16 11:14 Potassium Chloride Oral Liquid PO 09/28/16 22:01 40 meq BID SILVER Administration Thiamine HCl 200 mg 09/19/16 10:00 09/28/16 09:57 Vitamin B1 Injection - IVPB 200 mg DAILY SILVER Administration ASSESSMENT/PLAN: 25M found down with no PMH of DM presents to the ED unresponsive in DKA and severe sepsis. Diabetic ketoacidosis: patient has likely been a diabetic for a long time and has been undiagnosed and this is his initial presentation of DKA from untreated type 1 DM bicarb gtt stopped AG closed BGM better controlled today sliding scale [id number] adjusted per endocrinology continue levemir 18 units HS per endocrinology Endocrinology consult appreciated recommendations noted replete potassium aggressively PRN will need outpatient follow up with ophthalmology and podiatry HbA1C 12.9 Septic shock: tachycardic hypothermic on presentation now febrile leukocytosis on presentation now resolved with acute kidney injury lactic acidosis. requiring pressors which he no longer requires. Sputum Cx growing MRSA. Septic shock resolved. MRSA pneumonia URI infection per family prior to presentation sinusitis on imaging Sputum Cx-yeast like organisms/MRSA Will give another one dose of vancomycin 1.5gm and check level in AM. Dose by level given renal failure. BCx no growth so far UCx-no growth final continue Zosyn CSF cultures negative Acute respiratory failure: from DKA sepsis/MRSA PNA resolved suspected seizure activity when sedation is held resolved Thrombocytopenia: resolved from sepsis HIT Ab -negative Hematology consult-Dr. Fernandez appreciated-antiphospholipid work up negative hypercoagulable work up negative so far a whole array of hematology labs sent and pending will follow up No DVT on US duplex haptoglobin WNL LDH repeat only slightly elevated-not consistent with TTP/HUS Superficial thrombophlebitis: repeat US of bilateral upper extremities with no change from prior study just observe for now no indication to treat Ventricular tachycardia: one episode continue metoprolol DIC: patient was likely in DIC on presentation as he had low fibrinogen and increased fibrin degredation products and area of skin necrosis. Fibrinogen now back to normal likely from sepsis resolved lactic acidosis: resolved from sepsis and DKA Microcytic anemia: Iron studies are not consistent with Iron deficiency anemia but consistent with anemia of chronic disease B12 high Folate WNL polysubstance abuse: family now giving information that he was sniffing glue in addition to doing cocaine and drinking alcohol counselling given to patient consider rehab Metabolic acidosis: resolved Acute renal failure/Acute kidney injury:possible he has chronic renal failure given the fact his renal function is not improving Nephrology consult appreciated Cr 2.2-essentially unchanged may be new baseline Complements C3 C4 CLARICE M spike C anca P anca DS DNA ANCA Atypical P anca myeloperoxidase all negative not improving with hydration-stop IVF Trend Cr-slightly improved today avoid nephrotoxic drugs kidney biopsy as outpatient Transaminitis/questionable history of Liver disease: AST/ALT normalized ALK Phos elevated but overall improved transaminitis likely from shock liver from hypoperfusion vs alcoholic liver disease vs ingestion of toxic substances GI consult appreciated-will send serum copper and ceruloplasmin levels to r/o wilsons disease-negative Liver US showed fatty liver likely from alcoholism vs obesity CTAP-no acute pancreatic pathology or any other acute pathology Pancreatitis:no CT scan evidence and patient not awake to give us history. Lipase elevated on admission Lipase level now back to normal already had GI rest and aggressive IVF Hematuria: from traumatic arnold insertion and DIC resolved Hypernatremia:patient intially has pseudohyponatremia from hyperglycemia as corrected sodium was normal now patient is hypernatremic sodium 152-significantly improved continue D51/2 NS fluid deficit remains at around 3.5 liters increase free water per renal repeat sodium Asthma: intubated at this time will address this if it is active once stable FEN: D51/2 NS replete potassium for hypokalemia hypernatremia see plan above diabetic diet PPx: SCDs/HSQ Pepcid PT consult/speech swallow consult Visit type - Emergency Visit Emergency Visit: Yes ED Registration Date: 09/18/16 Care time: The patient presented to the Emergency Department on the above date and was hospitalized for further evaluation of their emergent condition. - New Patient This patient is new to me today: No - Critical Care Critical Care patient: Yes Total Critical Care Time (in minutes): 40 Critical Care Statement: The care of this patient involved high complexity decision making to prevent further life threatening deterioration of the patient 's condition and/or to evalute & treat vital organ system(s) failure or risk of failure. - Discharge Referral Referred to [facility] No
[2016-09-28] MEDS ORDERED: PT OWN MED DRAWER 7, Y5N ONE (14:40)
[2016-09-28] MEDS: DEXTROSE 5%-0.45% SALINE 1,000 ML IV SCH (14:52)
[2016-09-28] MEDS ORDERED: VANCOMYCIN 1,500 MG in DEXTROSE 5%-WATER - 500 ML IVPB ONE (15:10)
[2016-09-28] MEDS: VANCOMYCIN 1,500 MG in DEXTROSE 5%-WATER - 250 ML IVPB ONE ×3 (15:42→15:47)
[2016-09-28] MEDS ORDERED: SODIUM CHLORIDE 0.45% 1,000 ML IV SCH (16:45)
[2016-09-28] MEDS ORDERED: TRIPLE LUMEN FLUSH 4 ML ML IVPUSH PRN (19:14)
[2016-09-28] MEDS: METOPROLOL TARTRATE 25 MG TABLET (FP) PO SCH (21:13)
[2016-09-28] MEDS ORDERED: INSULIN DETEMIR 100 UNITS/ML MDV SQ SCH ×2 (22:00)
--- NOTE | 2016-09-28 22:05 | PN ---
Progress Note (short form) - Note Progress Note: Patient seen and examined extubated awake, alert mildly confsed Last Vital Signs Temp Pulse Resp BP Pulse Ox 98.3 F 70 16 135/93 94 L 09/28/16 22:10 09/28/16 22:10 09/28/16 22:10 09/28/16 22:10 09/28/16 20:59 intubated Cor: RSR, No murmurs, No gallops Lungs: Clear to P&A ant. Abd: Soft, Normal bowel sounds, No organomegaly Ext:anasarca Abnormal Lab Results 09/28/16 09/28/16 05:15 05:15 RBC 3.08 L Hgb 9.3 L Hct 27.5 L Sodium 152 H Potassium 3.2 L Chloride 116 H BUN 27 H Creatinine 2.2 H Random Glucose 211 H D Calcium 7.8 L AST 42 H D Alkaline Phosphatase 241 H Albumin 2.1 L Active Medications Heparin Sodium (Porcine) (Heparin -) 5,000 unit SQ TID [facility] Last Admin: 09/28/16 21:14 Dose: 5,000 unit IV Flush (Triple Lumen Flush) 4 ml IVPUSH PRN PRN PRN Reason: Protocol Sodium Chloride (1/2 Normal Saline) 1,000 mls @ 100 mls/hr IV ASDIR [facility] Last Admin: 09/28/16 18:23 Dose: 100 mls/hr Famotidine/Sodium Chloride (Pepcid 20 Mg Premixed Ivpb -) 50 mls @ 100 mls/hr IVPB BID [facility] Last Admin: 09/28/16 21:13 Dose: 100 mls/hr Piperacillin Sod/Tazobactam Sod (Zosyn 3.375gm Ivpb (Pre-Docked)) 50 mls @ 100 mls/hr IVPB Q8H-IV SILVER PRN Reason: Protocol Insulin Aspart (Novolog Vial Sliding Scale -) 1 vial SQ TIDAC [facility] PRN Reason: Protocol Insulin Detemir (Levemir Vial) 18 units SQ HS [facility] Last Admin: 09/28/16 21:39 Dose: 18 units Metoprolol Tartrate (Lopressor -) 25 mg PO TID [facility] Last Admin: 09/28/16 21:13 Dose: 25 mg Potassium Chloride (Potassium Chloride Oral Liquid) 40 meq PO BID [facility] Stop: 09/29/16 10:01 Last Admin: 09/28/16 21:13 Dose: 40 meq Thiamine HCl (Vitamin B1 Injection -) 200 mg IVPB DAILY SILVER A/P 25 y/o patient with h/o polysubstance abuse presenting with altered mental status, DKA, DIC/multiorganfailure. Was found unresponsive . DIC at presentation: onpresentation fibrinogen was < 100 c/w DIC. PArameters have improved since en. currently fibrinogen is 700 Reviewed peripheral smear -- anisocytosis/poikilocytosis, occ. schistocytes-- LDH--marginally elevated/haptoglobin nl--this is not c/w TTP/HUS Will check antiphospholipid panel HIT neg. VIRGIL neg./ SIFE neg. superficial thrombophlebitis both upper ext.---U/S worsening No DVt Remove iv lines. Warm/cold compress. Arm elevation IF worse /extension to deep venous system will need anticoagulation PE from superficial phlebitis is very rare f/u thrombophilia w/u
[2016-09-29 00:07] LABS: PROTEIN C ACTIVITY 106 % (73-180); PROTEIN S FREE 64 % (57-157); PROTEIN S FUNCTIONAL 69 % (63-140); PROTEIN S TOTAL 143 % (60-150)
[2016-09-29] MEDS: PIPERACILLIN/TAZOB 3.375 GM 50 ML IVPB SCH ×3 (01:29→17:07)
[2016-09-29] MEDS: INSULIN SLIDING SCALE (NOVOLOG) 1 VIAL SQ SCH ×4 (01:30→17:07)
[2016-09-29 06:06] LABS: BETA-2-GLYCOPROTEIN I IGA <9 (0-25)
[2016-09-29] MEDS: METOPROLOL TARTRATE 25 MG TABLET (FP) PO SCH ×2 (06:42→21:56)
[2016-09-29] MEDS: HEPARIN NA (PORCINE) 5,000 UNITS/ML 1ML VIAL SQ SCH ×3 (06:43→21:57)
[2016-09-29] MEDS ORDERED: INSULIN SLIDING SCALE (NOVOLOG) 1 VIAL SQ SCH (07:00)
[2016-09-29] MEDS ORDERED: INSULIN DETEMIR 100 UNITS/ML MDV SQ SCH (07:17)
[2016-09-29 07:38] LABS: MCH 29.8 pg (25.7-33.7); MCHC 33.6 g/dl (32.0-35.9); MEAN CELL VOLUME 88.8 fl (80-96); MEAN PLT VOLUME 9.9 fl (7.5-11.1); PLATELET COUNT 177 K/MM3 (134-434); RDW 12.7 % (11.9-15.9); WHITE BLOOD COUNT 8.5 K/mm3 (4.0-10.0)
[2016-09-29 08:07] LABS: CALCIUM 7.8 mg/dL (8.5-10.1); CREATININE 1.9 mg/dL (0.7-1.3)
[2016-09-29 08:11] LABS: BILIRUBIN,TOTAL 0.5 mg/dL (0.2-1.0); TOT PROT 5.9 g/dl (6.4-8.2)
--- NOTE | 2016-09-29 08:54 | PN ---
Progress Note (short form) - Note Progress Note: awake, alert BGM improving Vital Signs Period Temp Pulse Resp BP Sys/Gould Pulse Ox Last 24 Hr 98.3 F-99 F 70-88 16-22 102-159/65-98 94-99 PE: Awake, alert Neck: Supple, No JVd Lungs: CTA CVS: S1S2 Abd: benign Ext: No edema Neuro: Awake, alert CMP Sodium 145 mmol/L (136-145) 09/29/16 06:30 Potassium 3.4 mmol/L (3.5-5.1) L 09/29/16 06:30 Chloride 112 mmol/L (98-107) H 09/29/16 06:30 Carbon Dioxide 23 mmol/L (21-32) 09/29/16 06:30 Anion Gap 10 (8-16) 09/29/16 06:30 BUN 20 mg/dL (7-18) H D 09/29/16 06:30 Creatinine 1.9 mg/dL (0.7-1.3) H 09/29/16 06:30 Creat Clearance w eGFR 43.77 (>60) 09/29/16 06:30 POC Glucometer 93 UNITS (()) 09/29/16 05:31 Random Glucose 99 mg/dL (74-106) D 09/29/16 06:30 Hemoglobin A1c % 12.9 % (4.8-6.0) H 09/19/16 06:05 Serum Osmolality 350 mosm/kg (278-305) H 09/18/16 23:30 Lactic Acid 0.535 mmol/L (0.4-2.0) 09/21/16 11:00 Calcium 7.8 mg/dL (8.5-10.1) L 09/29/16 06:30 Phosphorus 4.4 mg/dL (2.5-4.9) D 09/28/16 05:15 Magnesium 2.4 mg/dL (1.8-2.4) 09/28/16 05:15 Iron 10 ug/dL (38-169) L 09/23/16 17:15 TIBC 92 ug/dL (250-450) L 09/23/16 17:15 Iron Saturation 11 % (15-55) L 09/23/16 17:15 Ferritin 757.631 ng/ml (16.4-293.9) H 09/23/16 17:15 Total Bilirubin 0.5 mg/dL (0.2-1.0) 09/29/16 06:30 Direct Bilirubin 0.1 mg/dL (0.0-0.2) D 09/26/16 04:00 GGT 864 U/L (5-85) H 09/26/16 04:00 AST 46 U/L (15-37) H 09/29/16 06:30 ALT 46 U/L (12-78) 09/29/16 06:30 Alkaline Phosphatase 198 U/L (45-117) H 09/29/16 06:30 LD Total 302 U/L (87-241) H 09/25/16 05:15 Creatine Kinase 142 IU/L (39-308) 09/26/16 04:00 Creatine Kinase Index Y 09/25/16 22:55 CK-MB (CK-2) < 1.000 ng/ml (0.5-3.6) 09/25/16 22:55 CK-MB (CK-2) Rel Index Cancelled 09/25/16 22:55 Troponin I 0.02 ng/ml (0.00-0.05) 09/26/16 04:00 Prot Electrophoresis (.) 09/19/16 19:30 Serum Total Protein 4.1 g/dL (6.0-8.5) L 09/19/16 19:30 Total Protein 5.9 g/dl (6.4-8.2) L 09/29/16 06:30 Albumin 2.0 g/dl (3.4-5.0) L 09/29/16 06:30 Globulin 1.9 g/dL (2.2-3.9) L 09/19/16 19:30 Albumin/Globulin Ratio 1.2 (0.7-1.7) 09/19/16 19:30 Orouv-1-Wmmlnjcpc 0.2 gm/dL (0.0-0.4) 09/19/16 19:30 Vwfqm-2-Uzronmpkk 0.7 gm/dL (0.4-1.0) 09/19/16 19:30 Beta Globulins 0.5 gm/dL (0.7-1.3) L 09/19/16 19:30 Gamma Globulins 0.5 gm/dL (0.4-1.8) 09/19/16 19:30 Ceruloplasmin 33.6 mg/dL (16.0-31.0) H 09/23/16 12:25 Total Amylase 98 U/L (25-115) D 09/20/16 05:40 Lipase 262 U/L (73-393) 09/20/16 05:40 Jyks-9-Vetlpawvtvib <9 (0-20) 09/25/16 08:00 Vitamin B12 3164 pg/ml (180-914) H 09/23/16 17:15 Serum Folate 8 ng/ml (3.1-17.5) 09/23/16 17:15 TSH 0.37 uIU/ml (0.358-3.74) 09/18/16 20:25 Current Medications Generic Name Dose Route Start Last Admin Trade Name Freq PRN Reason Stop Dose Admin Heparin Sodium (Porcine) 5,000 unit 09/28/16 22:00 09/29/16 06:43 Heparin - SQ 5,000 unit TID SILVER Administration IV Flush 4 ml 09/28/16 19:14 Triple Lumen Flush IVPUSH PRN PRN Protocol Sodium Chloride 1,000 mls @ 100 mls/hr 09/28/16 16:45 09/28/16 18:23 1/2 Normal Saline IV 100 mls/hr ASDIR SILVER Administration Famotidine/Sodium Chloride 50 mls @ 100 mls/hr 09/28/16 22:00 09/28/16 21:13 Pepcid 20 Mg Premixed Ivpb - IVPB 100 mls/hr BID SILVER Administration Piperacillin Sod/Tazobactam Sod 50 mls @ 100 mls/hr 09/29/16 02:00 09/29/16 01: 29 Zosyn 3.375gm Ivpb (Pre-Docked) IVPB 100 mls/hr Q8H-IV SILVER Administration Protocol Insulin Aspart 1 vial 09/29/16 07:00 09/29/16 01:30 Novolog Vial Sliding Scale - SQ 2 units TIDAC SILVER Administration Protocol Insulin Detemir 14 units 09/29/16 07:17 Levemir Vial SQ HS SILVER Metoprolol Tartrate 25 mg 09/28/16 14:45 09/29/16 06:42 Lopressor - PO 25 mg TID SILVER Administration Potassium Chloride 40 meq 09/28/16 22:00 09/28/16 21:13 Potassium Chloride Oral Liquid PO 09/29/16 10:01 40 meq BID SILVER Administration Thiamine HCl 200 mg 09/29/16 10:00 Vitamin B1 Injection - IVPB DAILY SILVER AP: DKA: resolved, A gap normalized Blood sugar improving, No hypos S/P Respiratory failure: s/p Extubation ? Pancreatitis: Pancreas normal on CT abd Sepsis Lactic Acidosis SEAN Hypokalemia Hypernatremia Swallow evaluatin noted Acidosis resovled Continue Levemir 18 units daily BGM Q ACHS Novolog coverage Electrolyte replacement as necessary IV abx
--- NOTE | 2016-09-29 08:59 | PN ---
Progress Note (short form) - Note Progress Note: extubated on Wednesday doing well, alert, responsive, orineted to place and name nad arnold out, central line out Vital Signs Period Temp Pulse Resp BP Sys/Gould Pulse Ox Last 24 Hr 98.3 F-99 F 70-88 16-22 102-159/65-98 94-99 cor rrr lungs clear abd soft,nt ext no edema CBC, BMP 09/29/16 06:30 09/29/16 06:30 Microbiology 09/18/16 22:00 Cerebral Spinal Fluid - Lumbar Puncture NISHA Preparation - Final 09/18/16 22:00 Cerebral Spinal Fluid - Lumbar Puncture Fungal Culture - Preliminary 09/24/16 18:05 Stool Salmonella/Shigella Culture - Final NO GROWTH OF SALMONELLA OR SHIGELLA SPECIES OBTAINED 09/24/16 18:05 Stool Campylobacter Culture - Final NO GROWTH OF CAMPYLOBACTER SPECIES OBTAINED 09/24/16 18:05 Stool Yersinia Culture - Final NO GROWTH OF YERSINIA SPECIES OBTAINED 09/24/16 18:05 Stool Vibrio Culture - Final NO GROWTH OF VIBRIO SPECIES OBTAINED 09/24/16 18:05 Stool Escherichia coli 0157 Culture - Final NO GROWTH OF E COLI 0157 OBTAINED 09/26/16 11:42 Stool Clostridium difficile Antigen (WESLY) - Final 09/26/16 11:42 Stool Clostridium difficile Toxin Assay - Final 09/19/16 13:05 Blood - Central Line Blood Culture - Final NO GROWTH AFTER 5 DAYS INCUBATION 09/19/16 11:22 Blood - Central Line Blood Culture - Final NO GROWTH AFTER 5 DAYS INCUBATION 09/21/16 18:30 Nasopharyngeal Swab Nasopharyngeal Culture - Final Yeast Like Organism 09/20/16 23:27 Sputum - Endotrachea Suction/Ventilator Gram Stain - Final 09/20/16 23:27 Sputum - Endotrachea Suction/Ventilator Sputum Culture - Final Yeast Like Organism Mr S Aureus 09/18/16 14:00 Blood - Peripheral Venous Blood Culture - Final NO GROWTH AFTER 5 DAYS INCUBATION 09/18/16 14:00 Blood - Peripheral Venous Blood Culture - Final NO GROWTH AFTER 5 DAYS INCUBATION 09/18/16 22:00 Cerebral Spinal Fluid - Lumbar Puncture Gram Stain - Final 09/18/16 22:00 Cerebral Spinal Fluid - Lumbar Puncture CSF Culture - Final NO GROWTH AFTER 48 HOURS INCUBATION 09/18/16 14:20 Urine - Urine - Catheterized Urine Culture - Final NO GROWTH OBTAINED 09/18/16 22:00 Cerebral Spinal Fluid - Lumbar Puncture Gram Stain - Final a/p DKA sinusitis SEAN etoh use, abnl LFTS doing well day #10 antibiotics will d/w hospitalist service would consider d/cing antibiotics after today Problem List - Problems (1) DKA (diabetic ketoacidosis) Code(s): E13.10 - OTH DIABETES MELLITUS WITH KETOACIDOSIS WITHOUT COMA Qualifiers: Diabetes mellitus type: type 1 Diabetes mellitus complication detail: with coma Qualified Code(s): E10.11 - Type 1 diabetes mellitus with ketoacidosis with coma (2) Acute renal insufficiency Code(s): N28.9 - DISORDER OF KIDNEY AND URETER, UNSPECIFIED (3) Respiratory failure Code(s): J96.90 - RESPIRATORY FAILURE, UNSP, UNSP W HYPOXIA OR HYPERCAPNIA (4) Leukocytosis Code(s): D72.829 - ELEVATED WHITE BLOOD CELL COUNT, UNSPECIFIED
[2016-09-29] MEDS ORDERED: VANCOMYCIN 1,500 MG in DEXTROSE 5%-WATER - 500 ML IVPB ONE (10:00)
[2016-09-29] MEDS: POTASSIUM CHLORIDE TABS 20 MEQ TABLET.ER (FP) PO SCH ×2 (11:01→21:57)
[2016-09-29] MEDS: THIAMINE HCL 200 MG/2 ML VIAL IVPB SCH (11:01)
[2016-09-29] MEDS: FAMOTIDINE 20 MG/50 ML IVPB 50 ML IVPB SCH ×2 (11:04→21:57)
--- NOTE | 2016-09-29 11:32 | PN ---
Teaching Attending Note Name of Resident: Danny Shine ATTENDING PHYSICIAN STATEMENT I saw and evaluated the patient. I reviewed the resident's note and discussed the case with the resident. I agree with the resident's findings and plan as documented. SUBJECTIVE: no fever or chills, did not fall this am , but went down on his knees when got up, witnessed by abdelrahman . OBJECTIVE: Awake , alert , knows his age , year and location . more aware of his condition HEENT: round equal pupils , no JVD, rash around R IJ site . Cv; RRR, NL S1, S2, no MRG, no JVD Lungs: Rales at bases . Abd ; soft, NL BS Ext : no edema on LE . 2 areas of black coloration on R fore arm with , improved with blister o n the little one . R upper ext edema, improved ASSESSMENT AND PLAN: 25 y/o man with h/o Asthma who presented after being found down, he was found to be in DKA, developed Acute resp failure , and also was found to have metabolic acidosis,and LFTs abnormalities . Now extubated on the floor 1- Acute resp failure: PNA vs ARDS. Extubated now - cont NC - received ABx 2- DKA : resolved , AG closed. - D5 d/c'd yesterday due to Glc > 200. this am sugar 90. - decrease HS levemir to 14 units tonight to avoid hypoglycemia in am , and will increase if needed tomorrow - expect p intake to improve 3- Hypernatremia: resolved . - encourage powater intake . - dc 1/2 NS 4-Severe Sepsis/septic shock resolved : source could be PNA , also sinusitis. - cont give zosyn and a dose of vanco today. d/w ID , might dc Abx tomorrow 5- SEAN, likely has CKD : improved cr. cont to monitor . will need further w/u as out pt 6- Transaminitis ; multifactorial, stable 7- Normocytic anemia : ACD no evidence of active bleeding or hemolysis 8 - DIC : likely due to severe sepsis. - resolved now 9- b/l superficial thrombophlebitis in upper extremities which expanded. repeat US yesterday, results will be d/w Rad to compare to one form , not . Upepr ext edema is better 10- transient episode of Vtach while in ICU. resolved . not too sick any more will try to wean BB off. decrease lopressor to 12.5 BID then
--- NOTE | 2016-09-29 13:38 | PN ---
Progress Note (short form) - Note Progress Note: Neurology The patient is a 25 year old male, with a significant past medical history of asthma, who presented to the emergency department for altered mental status. Reportedly, the patient recently returned from [place] and stated he was not feeling well, but could not localize his symptoms. The patient has a history of cocaine use. Spoke to resident and the patient has had elevated liver enzymes, also with DKA, has been having fevers, underwent spinal tap with RBC of 70,000 and 30,000 with elevated WBC and elevated glucose and protein. Sedation weaned off during weekend, extubated and patient now awake, alert, cooperative. Knows he's in the hospital but still with some cognitive difficulty, no longer in ICU and no acute events overnight or today. Active Medications Heparin Sodium (Porcine) (Heparin -) 5,000 unit SQ TID [facility] Last Admin: 09/29/16 06:43 Dose: 5,000 unit IV Flush (Triple Lumen Flush) 4 ml IVPUSH PRN PRN PRN Reason: Protocol Famotidine/Sodium Chloride (Pepcid 20 Mg Premixed Ivpb -) 50 mls @ 100 mls/hr IVPB BID [facility] Last Admin: 09/29/16 11:04 Dose: 100 mls/hr Piperacillin Sod/Tazobactam Sod (Zosyn 3.375gm Ivpb (Pre-Docked)) 50 mls @ 100 mls/hr IVPB Q8H-IV [facility] PRN Reason: Protocol Last Admin: 09/29/16 11:00 Dose: 100 mls/hr Insulin Aspart (Novolog Vial Sliding Scale -) 1 vial SQ TIDAC [facility] PRN Reason: Protocol Last Admin: 09/29/16 12:38 Dose: Not Given Insulin Detemir (Levemir Vial) 14 units SQ HS [facility] Metoprolol Tartrate (Lopressor -) 12.5 mg PO BID [facility] Potassium Chloride (K-Dur -) 40 meq PO BID [facility] Last Admin: 09/29/16 11:01 Dose: 40 meq Thiamine HCl (Vitamin B1 Injection -) 200 mg IVPB DAILY [facility] Last Admin: 09/29/16 11:01 Dose: 200 mg *Physical Exam Vital Signs Temperature 98.6 F 09/29/16 11:07 Pulse Rate 78 09/29/16 11:07 Respiratory Rate 20 09/29/16 11:07 Blood Pressure 140/98 09/29/16 11:07 O2 Sat by Pulse Oximetry (%) 99 09/29/16 00:00 GENERAL: Difficult to arouse even with painful stimuli HEAD: No signs of trauma EYES: Pupils small but reactive, EOMI, sclera anicteric, conjunctiva clear ENT: Auricles normal inspection, hearing grossly normal, nares patent, oropharynx clear without exudates. Moist mucosa NECK: Normal ROM, supple, no lymphadenopathy, JVD, or masses LUNGS: Respiration is kuz-mal. No wheezes, and no crackles HEART: Regular rate and rhythm, normal S1 and S2, no murmurs, rubs or gallops ABDOMEN: Tender and slightly firm. Normoactive bowel sounds. No guarding, no rebound. No masses EXTREMITIES: Normal range of motion, no edema. No clubbing or cyanosis. No cords, erythema, or tenderness NEUROLOGICAL: Awake, alert, minimally conversive in danish, follows simple commands, limited attention but not lethargic CBCD WBC 8.5 K/mm3 (4.0-10.0) 09/29/16 06:30 RBC 3.00 M/mm3 (4.00-5.60) L 09/29/16 06:30 Hgb 9.0 GM/dL (11.7-16.9) L 09/29/16 06:30 Hct 26.7 % (35.4-49) L 09/29/16 06:30 MCV 88.8 fl (80-96) 09/29/16 06:30 MCHC 33.6 g/dl (32.0-35.9) 09/29/16 06:30 RDW 12.7 % (11.9-15.9) 09/29/16 06:30 Plt Count 177 K/MM3 (134-434) 09/29/16 06:30 MPV 9.9 fl (7.5-11.1) 09/29/16 06:30 CMP Sodium 145 mmol/L (136-145) 09/29/16 06:30 Potassium 3.4 mmol/L (3.5-5.1) L 09/29/16 06:30 Chloride 112 mmol/L (98-107) H 09/29/16 06:30 Carbon Dioxide 23 mmol/L (21-32) 09/29/16 06:30 Anion Gap 10 (8-16) 09/29/16 06:30 BUN 20 mg/dL (7-18) H D 09/29/16 06:30 Creatinine 1.9 mg/dL (0.7-1.3) H 09/29/16 06:30 Creat Clearance w eGFR 43.77 (>60) 09/29/16 06:30 Calcium 7.8 mg/dL (8.5-10.1) L 09/29/16 06:30 Total Bilirubin 0.5 mg/dL (0.2-1.0) 09/29/16 06:30 AST 46 U/L (15-37) H 09/29/16 06:30 ALT 46 U/L (12-78) 09/29/16 06:30 Alkaline Phosphatase 198 U/L (45-117) H 09/29/16 06:30 Total Protein 5.9 g/dl (6.4-8.2) L 09/29/16 06:30 Albumin 2.0 g/dl (3.4-5.0) L 09/29/16 06:30 Medical Decision Making 25 year old male, with a significant past medical history of asthma, who presented to the emergency department several days ago for altered mental status. Reportedly, the patient recently returned from [place] and stated he was not feeling well, but could not localize his symptoms. The patient has a history of cocaine use. Spoke to resident and the patient has had elevated liver enzymes, also with DKA, has been having fevers, underwent spinal tap with RBC of 70,000 and 30,000 with elevated WBC and elevated glucose and protein. Sedation weaned off during weekend, extubated and patient now awake, alert, cooperative. Knows he's in the hospital but still with some cognitive difficulty. Continue medical mgmt. Much improved mental status but still not fully at baseline. Monitor for withdrawal. No longer in ICU and gradually improving.
[2016-09-29 13:41] LABS: METHANOL, BLOOD Negative % (0.000-0.010)
--- NOTE | 2016-09-29 14:04 | PN ---
Progress Note, Physician History of Present Illness: PULMONARY ALERT,NAD,-RESP DISTRESS - Current Medication List Current Medications: Active Medications Heparin Sodium (Porcine) (Heparin -) 5,000 unit SQ TID [facility] Last Admin: 09/29/16 06:43 Dose: 5,000 unit IV Flush (Triple Lumen Flush) 4 ml IVPUSH PRN PRN PRN Reason: Protocol Famotidine/Sodium Chloride (Pepcid 20 Mg Premixed Ivpb -) 50 mls @ 100 mls/hr IVPB BID [facility] Last Admin: 09/29/16 11:04 Dose: 100 mls/hr Piperacillin Sod/Tazobactam Sod (Zosyn 3.375gm Ivpb (Pre-Docked)) 50 mls @ 100 mls/hr IVPB Q8H-IV [facility] PRN Reason: Protocol Last Admin: 09/29/16 11:00 Dose: 100 mls/hr Insulin Aspart (Novolog Vial Sliding Scale -) 1 vial SQ TIDAC [facility] PRN Reason: Protocol Last Admin: 09/29/16 12:38 Dose: Not Given Insulin Detemir (Levemir Vial) 14 units SQ HS [facility] Metoprolol Tartrate (Lopressor -) 12.5 mg PO BID [facility] Potassium Chloride (K-Dur -) 40 meq PO BID [facility] Last Admin: 09/29/16 11:01 Dose: 40 meq Thiamine HCl (Vitamin B1 Injection -) 200 mg IVPB DAILY [facility] Last Admin: 09/29/16 11:01 Dose: 200 mg - Objective Vital Signs: Vital Signs Temperature 98.6 F 09/29/16 11:07 Pulse Rate 78 09/29/16 11:07 Respiratory Rate 20 09/29/16 11:07 Blood Pressure 140/98 09/29/16 11:07 O2 Sat by Pulse Oximetry (%) 99 09/29/16 00:00 Constitutional: Yes: Well Nourished, Calm Eyes: Yes: WNL HENT: Yes: WNL Neck: Yes: WNL Cardiovascular: Yes: Regular Rate and Rhythm, S1, S2 Respiratory: Yes: Rhonchi (FEW RHONCHI) Gastrointestinal: Yes: Normal Bowel Sounds, Soft Extremities: Yes: WNL Edema: No Labs: CBC, BMP 09/29/16 06:30 09/29/16 06:30 INR, PTT INR 1.04 (0.82-1.09) 09/26/16 04:00 Fibrinogen > 700.0 mg/dL (238-498) H 09/23/16 15:35 Problem List - Problems (1) Abnormal liver enzymes Code(s): R74.8 - ABNORMAL LEVELS OF OTHER SERUM ENZYMES (2) Acute renal insufficiency Code(s): N28.9 - DISORDER OF KIDNEY AND URETER, UNSPECIFIED (3) Altered mental status Code(s): R41.82 - ALTERED MENTAL STATUS, UNSPECIFIED Qualifiers: Altered mental status type: stupor Qualified Code(s): R40.1 - Stupor (4) DKA (diabetic ketoacidosis) Code(s): E13.10 - OTH DIABETES MELLITUS WITH KETOACIDOSIS WITHOUT COMA Qualifiers: Diabetes mellitus type: type 1 Diabetes mellitus complication detail: with coma Qualified Code(s): E10.11 - Type 1 diabetes mellitus with ketoacidosis with coma (5) Lactic acidosis Code(s): E87.2 - ACIDOSIS (6) Respiratory failure Code(s): J96.90 - RESPIRATORY FAILURE, UNSP, UNSP W HYPOXIA OR HYPERCAPNIA (7) Sepsis Code(s): A41.9 - SEPSIS, UNSPECIFIED ORGANISM Assessment/Plan ASSESSMENT AND PLAN: s/p Acute Respiratory Failure Polysubstance Abuse Diabetic Ketoacidosis resolved Metabolic Acidosis Septic Shock Acute Kidney Injury Lactic Acidosis resolved Elevated LFTs ?Alcohol Withdrawal Volume Overload - ABX per ID - PO as tolerated - ivf - replete lytes - DVT/GI prophylaxis DR ANDREW
--- NOTE | 2016-09-29 15:19 | PN ---
Progress Note, [employer] - Note Progress Note: Reported to be verbal, not confused but weak per family. Tolerating PO diet. Monitor for PO tolerance and sufficient PO acceptance. Selected Entries 09/28/16 09/28/16 09/28/16 02:00 05:41 10:00 Breakfast Temperature 98.6 F 98.0 F 98.8 F 09/28/16 09/28/16 09/28/16 11:20 12:00 14:00 Breakfast Temperature 98.6 F 99 F 98.4 F 09/28/16 09/28/16 09/29/16 15:52 22:10 06:00 Breakfast Temperature 98.3 F 98.3 F 98.6 F 09/29/16 09/29/16 09:06 11:07 Breakfast 25% Temperature 98.6 F
--- NOTE | 2016-09-29 15:40 | PN ---
Physical Exam: SUBJECTIVE: Patient seen and examined OBJECTIVE: Vital Signs Period Temp Pulse Resp BP Sys/Gould Pulse Ox Last 24 Hr 98.3 F-98.6 F 70-88 16-22 102-159/81-98 94-99 GENERAL: alert awake and orientated to place self and year HEAD: Normal with no signs of trauma. EYES: Pupils equal, round and reactive to light EARS, NOSE, THROAT:Moist mucous membranes. NECK: No JVD. COntact dermatitis from previous central line site likely reaction to tape LUNGS: . CTAB HEART: RRR S1 S2 no murmurs rubs or gallops ABDOMEN: Soft, nontender, not distended +BS UPPER EXTREMITIES: warm, well-perfused. edema previously noted resolved on the right forearm there are 2 area of what appears to be necrosis with surrounding erythema LOWER EXTREMITIES: warm, well-perfused. no edema NEURO: strength 5/5 : arnold in place Laboratory Results - last 24 hr 09/23/16 09/25/16 09/28/16 15:35 08:00 18:15 WBC RBC Hgb Hct MCV MCHC RDW Plt Count MPV Protein C Antigen 85.0 Protein C Activity 106 Functional Protein S 69 Free Protein S 64 Total Protein S 143 Sodium Potassium Chloride Carbon Dioxide Anion Gap BUN Creatinine Creat Clearance w eGFR POC Glucometer [phone] Random Glucose Calcium Total Bilirubin AST ALT Alkaline Phosphatase Total Protein Albumin Aoah-4-Ansbulzklrje <9 Random Vancomycin Ethylene Glycol None detected Methyl Alcohol, Quant Cancelled Etik-2-Jsgwjdzbiiyw Ab <9 Beta-2-GPI IgM Ab <9 09/28/16 09/29/16 09/29/16 21:11 01:22 05:31 WBC RBC Hgb Hct MCV MCHC RDW Plt Count MPV Protein C Antigen Protein C Activity Functional Protein S Free Protein S Total Protein S Sodium Potassium Chloride Carbon Dioxide Anion Gap BUN Creatinine Creat Clearance w eGFR POC Glucometer [phone] 93 Random Glucose Calcium Total Bilirubin AST ALT Alkaline Phosphatase Total Protein Albumin Tshv-1-Xkqitdhxytqd Random Vancomycin Ethylene Glycol Methyl Alcohol, Quant Hank-5-Oltiyzshnmzd Ab Beta-2-GPI IgM Ab 09/29/16 09/29/16 09/29/16 06:30 06:30 12:35 WBC 8.5 RBC 3.00 L Hgb 9.0 L Hct 26.7 L MCV 88.8 MCHC 33.6 RDW 12.7 Plt Count 177 MPV 9.9 Protein C Antigen Protein C Activity Functional Protein S Free Protein S Total Protein S Sodium 145 Potassium 3.4 L Chloride 112 H Carbon Dioxide 23 Anion Gap 10 BUN 20 H D Creatinine 1.9 H Creat Clearance w eGFR 43.77 POC Glucometer 145 Random Glucose 99 D Calcium 7.8 L Total Bilirubin 0.5 AST 46 H ALT 46 Alkaline Phosphatase 198 H Total Protein 5.9 L Albumin 2.0 L Wmgc-9-Rwunaaatneht Random Vancomycin 17.932 Ethylene Glycol Methyl Alcohol, Quant Pict-6-Xszdwxovuqfl Ab Beta-2-GPI IgM Ab Active Medications Generic Name Dose Route Start Last Admin Trade Name Freq PRN Reason Stop Dose Admin Heparin Sodium (Porcine) 5,000 unit 09/28/16 22:00 09/29/16 15:12 Heparin - SQ 5,000 unit TID [facility] Administration IV Flush 4 ml 09/28/16 19:14 Triple Lumen Flush IVPUSH PRN PRN Protocol Famotidine/Sodium Chloride 50 mls @ 100 mls/hr 09/28/16 22:00 09/29/16 11:04 Pepcid 20 Mg Premixed Ivpb - IVPB 100 mls/hr BID [facility] Administration Piperacillin Sod/Tazobactam Sod 50 mls @ 100 mls/hr 09/29/16 02:00 09/29/16 11: 00 Zosyn 3.375gm Ivpb (Pre-Docked) IVPB 100 mls/hr Q8H-IV [facility] Administration Protocol Insulin Aspart 1 vial 09/29/16 07:00 09/29/16 12:38 Novolog Vial Sliding Scale - SQ Not Given TIDAC [facility] Protocol Insulin Detemir 14 units 09/29/16 07:[address] [facility] Metoprolol Tartrate 12.5 mg 09/29/16 22:00 Lopressor - PO BID [facility] Potassium Chloride 40 meq 09/29/16 10:00 09/29/16 11:01 K-Dur - PO 40 meq BID [facility] Administration Thiamine HCl 200 mg 09/29/16 10:00 09/29/16 11:01 Vitamin B1 Injection - IVPB 200 mg DAILY [facility] Administration ASSESSMENT/PLAN: 25M found down with no PMH of DM presents to the ED unresponsive in DKA and severe sepsis. Diabetic ketoacidosis: patient has likely been a diabetic for a long time and has been undiagnosed and this is his initial presentation of DKA from untreated type 1 DM DKA resolved Patient was not aware he had diabetes BGM better controlled sliding scale TIDAC decrease levemir to 14 units HS Endocrinology consult appreciated recommendations noted replete potassium aggressively PRN will need outpatient follow up with ophthalmology and podiatry HbA1C 12.9 Septic shock: tachycardic hypothermic on presentation now febrile leukocytosis on presentation now resolved with acute kidney injury lactic acidosis. requiring pressors which he no longer requires. Sputum Cx growing MRSA. Septic shock resolved. MRSA pneumonia URI infection per family prior to presentation sinusitis on imaging Sputum Cx-yeast like organisms/MRSA Will give another one dose of vancomycin 1.5gm and check level in AM. Dose by level given renal failure. BCx no growth so far UCx-no growth final Stool Cx-negative continue Zosyn for today and stop ABx tomorrow Day 10 of Zosyn today CSF cultures negative Acute respiratory failure: from DKA sepsis/MRSA PNA resolved suspected seizure activity when sedation is held resolved Thrombocytopenia: resolved from sepsis HIT Ab -negative Hematology consult-Dr. Fernandez appreciated-antiphospholipid work up negative hypercoagulable work up negative so far a whole array of hematology labs sent and pending will follow up No DVT on US duplex haptoglobin WNL LDH repeat only slightly elevated-not consistent with TTP/HUS Superficial thrombophlebitis: repeat US of bilateral upper extremities with no change from prior study just observe for now no indication to treat Ventricular tachycardia: one episode decrease metoprolol 10 12.5mg po BID and trend BP patient may have underlying HTN DIC: patient was likely in DIC on presentation as he had low fibrinogen and increased fibrin degredation products and area of skin necrosis. Fibrinogen now back to normal likely from sepsis resolved lactic acidosis: resolved from sepsis and DKA Microcytic anemia: Iron studies are not consistent with Iron deficiency anemia but consistent with anemia of chronic disease B12 high Folate WNL polysubstance abuse: family now giving information that he was sniffing glue in addition to doing cocaine and drinking alcohol counselling given to patient-asked in [place]ese if he has to stop cocaine as well consider rehab Metabolic acidosis: resolved Acute renal failure/Acute kidney injury:possible he has chronic renal failure given the fact his renal function is not improving Nephrology consult appreciated Cr 2.2-essentially unchanged may be new baseline Complements C3 C4 CLARICE M spike C anca P anca DS DNA ANCA Atypical P anca myeloperoxidase all negative not improving with hydration-stop IVF Trend Cr-continues to improve Cr 1.9 today avoid nephrotoxic drugs kidney biopsy as outpatient Transaminitis/questionable history of Liver disease: AST/ALT normalized ALK Phos elevated but overall improved transaminitis likely from shock liver from hypoperfusion vs alcoholic liver disease vs ingestion of toxic substances GI consult appreciated- work up for nirali's disease negative Liver US showed fatty liver likely from alcoholism vs obesity CTAP-no acute pancreatic pathology or any other acute pathology Pancreatitis:no CT scan evidence and patient not awake to give us history. Lipase elevated on admission Lipase level now back to normal already had GI rest and aggressive IVF not active at this time tolerating diet Hematuria: from traumatic arnold insertion and DIC resolved Hypernatremia:patient intially has pseudohyponatremia from hyperglycemia as corrected sodium was normal resolved Sodium 145 today stop IVF Asthma: no issues FEN: stop IVF replete potassium for hypokalemia diabetic diet PPx: SCDs/HSQ Pepcid PT consult/speech swallow consult Visit type - Emergency Visit Emergency Visit: Yes ED Registration Date: 09/18/16 Care time: The patient presented to the Emergency Department on the above date and was hospitalized for further evaluation of their emergent condition. - New Patient This patient is new to me today: No - Critical Care Critical Care patient: No
--- NOTE | 2016-09-29 15:42 | PN ---
Progress Note, Physician History of Present Illness: Pt seen and examined at bedside. He is now awake and extubated. He is in the medical ceja. - Current Medication List Current Medications: Active Medications Heparin Sodium (Porcine) (Heparin -) 5,000 unit SQ TID [facility] Last Admin: 09/29/16 15:12 Dose: 5,000 unit IV Flush (Triple Lumen Flush) 4 ml IVPUSH PRN PRN PRN Reason: Protocol Famotidine/Sodium Chloride (Pepcid 20 Mg Premixed Ivpb -) 50 mls @ 100 mls/hr IVPB BID [facility] Last Admin: 09/29/16 11:04 Dose: 100 mls/hr Piperacillin Sod/Tazobactam Sod (Zosyn 3.375gm Ivpb (Pre-Docked)) 50 mls @ 100 mls/hr IVPB Q8H-IV [facility] PRN Reason: Protocol Last Admin: 09/29/16 11:00 Dose: 100 mls/hr Insulin Aspart (Novolog Vial Sliding Scale -) 1 vial SQ TIDAC [facility] PRN Reason: Protocol Last Admin: 09/29/16 12:38 Dose: Not Given Insulin Detemir (Levemir Vial) 14 units SQ HS [facility] Metoprolol Tartrate (Lopressor -) 12.5 mg PO BID [facility] Potassium Chloride (K-Dur -) 40 meq PO BID [facility] Last Admin: 09/29/16 11:01 Dose: 40 meq Thiamine HCl (Vitamin B1 Injection -) 200 mg IVPB DAILY [facility] Last Admin: 09/29/16 11:01 Dose: 200 mg - Objective Vital Signs: Vital Signs Temperature 98.6 F 09/29/16 11:07 Pulse Rate 78 09/29/16 11:07 Respiratory Rate 20 09/29/16 11:07 Blood Pressure 140/98 09/29/16 11:07 O2 Sat by Pulse Oximetry (%) 99 09/29/16 00:00 Constitutional: Yes: Calm Eyes: Yes: Conjunctiva Clear HENT: Yes: Atraumatic Neck: Yes: Supple Cardiovascular: Yes: S1, S2 Respiratory: Yes: CTA Bilaterally Gastrointestinal: Yes: Soft, Abdomen, Obese Genitourinary: Yes: Incontinence Musculoskeletal: Yes: WNL Edema: No Labs: CBC, BMP 09/29/16 06:30 09/29/16 06:30 INR, PTT INR 1.04 (0.82-1.09) 09/26/16 04:00 Fibrinogen > 700.0 mg/dL (238-498) H 09/23/16 15:35 Problem List - Problems (1) Acute renal insufficiency Code(s): N28.9 - DISORDER OF KIDNEY AND URETER, UNSPECIFIED (2) Altered mental status Code(s): R41.82 - ALTERED MENTAL STATUS, UNSPECIFIED Qualifiers: Altered mental status type: stupor Qualified Code(s): R40.1 - Stupor (3) Lactic acidosis Code(s): E87.2 - ACIDOSIS (4) Leukocytosis Code(s): D72.829 - ELEVATED WHITE BLOOD CELL COUNT, UNSPECIFIED (5) Respiratory failure Code(s): J96.90 - RESPIRATORY FAILURE, UNSP, UNSP W HYPOXIA OR HYPERCAPNIA Assessment/Plan Current Medications Generic Name Dose Route Start Last Admin Trade Name Freq PRN Reason Stop Dose Admin Heparin Sodium (Porcine) 5,000 unit 09/28/16 22:00 09/29/16 15:12 Heparin - SQ 5,000 unit TID [facility] Administration IV Flush 4 ml 09/28/16 19:14 Triple Lumen Flush IVPUSH PRN PRN Protocol Famotidine/Sodium Chloride 50 mls @ 100 mls/hr 09/28/16 22:00 09/29/16 11:04 Pepcid 20 Mg Premixed Ivpb - IVPB 100 mls/hr BID [facility] Administration Piperacillin Sod/Tazobactam Sod 50 mls @ 100 mls/hr 09/29/16 02:00 09/29/16 11: 00 Zosyn 3.375gm Ivpb (Pre-Docked) IVPB 100 mls/hr Q8H-IV [facility] Administration Protocol Insulin Aspart 1 vial 09/29/16 07:00 09/29/16 12:38 Novolog Vial Sliding Scale - SQ Not Given TIDAC [facility] Protocol Insulin Detemir 14 units 09/29/16 07:17 Levemir Vial SQ HS [facility] Metoprolol Tartrate 12.5 mg 09/29/16 22:00 Lopressor - PO BID [facility] Potassium Chloride 40 meq 09/29/16 10:00 09/29/16 11:01 K-Dur - PO 40 meq BID [facility] Administration Thiamine HCl 200 mg 09/29/16 10:00 09/29/16 11:01 Vitamin B1 Injection - IVPB 200 mg DAILY [facility] Administration Laboratory Tests 09/19/16 09/19/16 09/21/16 06:05 19:30 11:00 VIRGIL Screen Negative c-ANCA <1:20 Proteinase 3 (PR3) <3.5 p-ANCA <1:20 Atypical p-ANCA <1:20 Myeloperoxidase Ab <9.0 Double Strand DNA Ab <1 Mdij-2-Smxefojjymly Ab Beta-2-GPI IgM Ab Sm[employer] Intrp Glomerular Base Memb Ab 2 Hep-Induced Plt Ab Rapid 0.179 Anti-Cardiolipin IgG Ab Anti-Cardiolipin IgA Ab Anti-Cardiolipin IgM Ab Complement C3 Complement C4 Hep Bs Antigen Negative Hep Bs Antibody Non reactive Hep B Core Total Ab Negative Hepatitis C Antibody <0.1 09/22/16 09/24/16 09/25/16 14:20 05:45 08:00 VIRGIL Screen c-ANCA Proteinase 3 (PR3) p-ANCA Atypical p-ANCA Myeloperoxidase Ab Double Strand DNA Ab Yjcc-1-Gfjyvocjnmly Ab <9 Beta-2-GPI IgM Ab <9 Smooth [employer] Intrp 11 Glomerular Base Memb Ab Hep-Induced Plt Ab Rapid Anti-Cardiolipin IgG Ab <9 Anti-Cardiolipin IgA Ab <9 Anti-Cardiolipin IgM Ab <9 Complement C3 107 Complement C4 39 Hep Bs Antigen Hep Bs Antibody Hep B Core Total Ab Hepatitis C Antibody Impression 1. SEAN 2. metabolic acidosis 3. gross hematuria 4. DKA 5. sepsis 6. lactic acidosis 7. acute respiratory failure requiring intubation 8. etoh abuse - active 9. cocain use active 10 hypokalemia 11. multi-drug abuse Plan - pt is tolerating diet - sodium is improving - supplement potassium - check mag level - will follow - workup negative so far Dr Espinoza
[2016-09-29 16:03] LABS: LAC INTERPRETATION Comment: (.); PTT-LA MIX 58.8 sec (0.0-40.6)
--- NOTE | 2016-09-29 16:18 | PN ---
GI Progress Note Subjective: No acute events + diarrhea States feeling well - Objective Vital Signs: Vital Signs Temperature 98.1 F 09/29/16 16:00 Pulse Rate 87 09/29/16 16:00 Respiratory Rate 16 09/29/16 16:00 Blood Pressure 149/97 09/29/16 16:00 O2 Sat by Pulse Oximetry (%) 99 09/29/16 00:00 Constitutional: Calm Eyes: No: Sclera Icterus Cardiovascular: Yes: Regular Rate and Rhythm Respiratory: Yes: CTA Bilaterally Gastrointestinal Inspection: No: Distention ...Auscultate: Yes: Normoactive Bowel Sounds ...Palpate: No: Tenderness Neurological: Yes: Alert Labs: CBC, BMP 09/29/16 06:30 09/29/16 06:30 INR, PTT INR 1.04 (0.82-1.09) 09/26/16 04:00 Fibrinogen > 700.0 mg/dL (238-498) H 09/23/16 15:35 Laboratory Tests 09/23/16 09/24/16 09/28/16 12:25 05:45 05:15 Total Bilirubin 0.5 D AST 42 H D ALT 48 Alkaline Phosphatase 241 H Ceruloplasmin 33.6 H Serum Copper 117 Laboratory Tests 09/24/16 10:00 Ur Copper 24 Hr 285 H Problem List - Problems (1) Abnormal liver enzymes Assessment/Plan: Improving liver chemistries: The question of Jorge A's Disease was proposed given that 24 hour urine copper was elevated. Ceruloplasmin was mildly elevated however it is an acute phase reactant and can be falsely elevated in any inflammatory state. Concern wouldn' t be for a normal or high ceruloplasmin but rather a low ceruloplasmin for Jorge A's disease. Also, while 24 hour urine copper was elevated, any liver injury causing some degree of hepatocellular necrosis can lead to spillage of excess copper. Of note serum copper levels were normal These studies will need to be repeated when confounding factors have been resolved Code(s): R74.8 - ABNORMAL LEVELS OF OTHER SERUM ENZYMES
[2016-09-29] MEDS ORDERED: INSULIN (NOVOLOG) ASPART 100 UNITS/ML 10ML VIAL ONE (17:23)
[2016-09-29] MEDS ORDERED: PT OWN MED DRAWER 7, Y5N ONE (17:23)
[2016-09-30] MEDS: PIPERACILLIN/TAZOB 3.375 GM 50 ML IVPB SCH ×2 (01:18→09:28)
[2016-09-30] MEDS: INSULIN SLIDING SCALE (NOVOLOG) 1 VIAL SQ SCH ×3 (06:18→17:30)
[2016-09-30] MEDS: HEPARIN NA (PORCINE) 5,000 UNITS/ML 1ML VIAL SQ SCH ×2 (06:19→15:00)
[2016-09-30 08:15] LABS: ALBUMIN 2.2 g/dl (3.4-5.0); BILIRUBIN,TOTAL 0.6 mg/dL (0.2-1.0); CALCIUM 8.3 mg/dL (8.5-10.1); CREATININE 2.1 mg/dL (0.7-1.3); MAGNESIUM 2.1 mg/dL (1.8-2.4); TOT PROT 6.3 g/dl (6.4-8.2)
[2016-09-30] MEDS: THIAMINE HCL 200 MG/2 ML VIAL IVPB SCH (09:29)
[2016-09-30] MEDS: POTASSIUM CHLORIDE TABS 20 MEQ TABLET.ER (FP) PO SCH (09:29)
[2016-09-30] MEDS: METOPROLOL TARTRATE 25 MG TABLET (FP) PO SCH (09:29)
[2016-09-30] MEDS: OCULAR LUBRICANT OPHTHALMIC OINTMENT 7 GM TUBE OU SCH (09:42)
[2016-09-30] MEDS: POTASSIUM CHLORIDE ORAL LIQUID 20 MEQ/15 ML PO SCH (09:42)
[2016-09-30] MEDS: POTASSIUM CHLORIDE 20 MEQ PREMIX IVPB 100 ML IVPB SCH (09:42)
--- NOTE | 2016-09-30 11:12 | PN ---
Teaching Attending Note Name of Resident: Danny Shine ATTENDING PHYSICIAN STATEMENT I saw and evaluated the patient. I reviewed the resident's note and discussed the case with the resident. I agree with the resident's findings and plan as documented. SUBJECTIVE:currently asymptomatic. denies CP, SOB,fever, chills, N/V/C/D OBJECTIVE: Last Vital Signs Temp Pulse Resp BP Pulse Ox 98.9 F 83 18 122/84 99 09/30/16 06:00 09/30/16 06:00 09/30/16 06:00 09/30/16 06:00 09/29/16 00:00 General NAD CV S1 S2 RRR no murmur/rub/gallop Lungs CTA B/L no wheezing/rales/rhonchi ASSESSMENT AND PLAN: 25yo M with PMH unspecified liver disorder presented to the ER and was admitted for further evaluation of their emergent condition 1. Acute hypoxic respiratory failure- due to MRSA PNA and Hflu B+. now extubated. saturating 97% on RA. 2. Septic Shock due to MRSA PNA- now resolved. on Vanco/zosyn day 11 of abx. Tm 100.6. will d/w ID about abx duration 3. DKA- newly Diabetic. A1c 12.9. on Levemir 14units QHS. ISS. sugars controlled. daibetic teaching 4. SEAN- likely in setting of sepsis. likely some setting of CKD undiagnosed. 2.2 may be baseline. avoid nephrotoxic medications 5. Anemia of chronic disease- Hgb stable. no signs of bleeding. no indication for transfusion 6. d/c planning. would benefit from ERASTO but is undocumented. will need to determine placement once off ABx.
--- NOTE | 2016-09-30 12:10 | PN ---
Progress Note, Physician History of Present Illness: Pt seen and examined at bedside. He is awake and appears comfortable. He is tolerating diet. - Current Medication List Current Medications: Active Medications Heparin Sodium (Porcine) (Heparin -) 5,000 unit SQ TID [facility] Last Admin: 09/30/16 06:19 Dose: 5,000 unit IV Flush (Triple Lumen Flush) 4 ml IVPUSH PRN PRN PRN Reason: Protocol Piperacillin Sod/Tazobactam Sod (Zosyn 3.375gm Ivpb (Pre-Docked)) 50 mls @ 100 mls/hr IVPB Q8H-IV SILVER PRN Reason: Protocol Last Admin: 09/30/16 09:28 Dose: 100 mls/hr Insulin Aspart (Novolog Vial Sliding Scale -) 1 vial SQ TIDAC SILVER PRN Reason: Protocol Last Admin: 09/30/16 06:18 Dose: Not Given Insulin Detemir (Levemir Vial) 14 units SQ HS [facility] Last Admin: 09/29/16 21:58 Dose: 14 units Metoprolol Tartrate (Lopressor -) 12.5 mg PO BID [facility] Last Admin: 09/30/16 09:29 Dose: 12.5 mg Potassium Chloride (K-Dur -) 40 meq PO BID [facility] Last Admin: 09/30/16 09:29 Dose: 40 meq Thiamine HCl (Vitamin B1 Injection -) 200 mg IVPB DAILY [facility] Last Admin: 09/30/16 09:29 Dose: 200 mg - Objective Vital Signs: Vital Signs Temperature 98.9 F 09/30/16 06:00 Pulse Rate 83 09/30/16 06:00 Respiratory Rate 18 09/30/16 06:00 Blood Pressure 122/84 09/30/16 06:00 O2 Sat by Pulse Oximetry (%) 99 09/29/16 00:00 Constitutional: Yes: Calm Eyes: Yes: Conjunctiva Clear HENT: Yes: Atraumatic Cardiovascular: Yes: S1, S2 Respiratory: Yes: CTA Bilaterally Gastrointestinal: Yes: Soft Genitourinary: Yes: WNL Musculoskeletal: Yes: WNL Edema: No Labs: CBC, BMP 09/29/16 06:30 09/30/16 05:35 INR, PTT INR 1.04 (0.82-1.09) 09/26/16 04:00 Fibrinogen > 700.0 mg/dL (238-498) H 09/23/16 15:35 Problem List - Problems (1) Acute renal insufficiency Code(s): N28.9 - DISORDER OF KIDNEY AND URETER, UNSPECIFIED (2) Altered mental status Code(s): R41.82 - ALTERED MENTAL STATUS, UNSPECIFIED Qualifiers: Altered mental status type: stupor Qualified Code(s): R40.1 - Stupor (3) Lactic acidosis Code(s): E87.2 - ACIDOSIS (4) Leukocytosis Code(s): D72.829 - ELEVATED WHITE BLOOD CELL COUNT, UNSPECIFIED (5) Respiratory failure Code(s): J96.90 - RESPIRATORY FAILURE, UNSP, UNSP W HYPOXIA OR HYPERCAPNIA Assessment/Plan Current Medications Generic Name Dose Route Start Last Admin Trade Name Freq PRN Reason Stop Dose Admin Heparin Sodium (Porcine) 5,000 unit 09/28/16 22:00 09/30/16 06:19 Heparin - SQ 5,000 unit TID SILVER Administration IV Flush 4 ml 09/28/16 19:14 Triple Lumen Flush IVPUSH PRN PRN Protocol Piperacillin Sod/Tazobactam Sod 50 mls @ 100 mls/hr 09/29/16 02:00 09/30/16 09: 28 Zosyn 3.375gm Ivpb (Pre-Docked) IVPB 100 mls/hr Q8H-IV SILVER Administration Protocol Insulin Aspart 1 vial 09/29/16 07:00 09/30/16 06:18 Novolog Vial Sliding Scale - SQ Not Given TIDAC SILVER Protocol Insulin Detemir 14 units 09/29/16 07:17 09/29/16 21:58 Levemir Vial SQ 14 units HS [facility] Administration Metoprolol Tartrate 12.5 mg 09/29/16 22:00 09/30/16 09:29 Lopressor - PO 12.5 mg BID [facility] Administration Potassium Chloride 40 meq 09/29/16 10:00 09/30/16 09:29 K-Dur - PO 40 meq BID [facility] Administration Thiamine HCl 200 mg 09/29/16 10:00 09/30/16 09:29 Vitamin B1 Injection - IVPB 200 mg DAILY [facility] Administration Impression 1. SEAN 2. metabolic acidosis 3. gross hematuria 4. DKA 5. sepsis 6. lactic acidosis 7. acute respiratory failure requiring intubation 8. etoh abuse - active 9. 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
--- NOTE | 2016-09-30 12:35 | PN ---
Progress Note, APPLICATION DEVELOPMENT LIAISON - Note Progress Note: Selected Entries 09/29/16 09/29/16 09/29/16 06:00 09:06 11:07 Breakfast 25% Lunch Supper Temperature 98.6 F 98.6 F 09/29/16 09/29/16 09/29/16 11:59 16:00 18:00 Breakfast Lunch 25% Supper 100% Temperature 98.1 F 100.6 F H 09/29/16 09/30/16 09/30/16 21:00 06:00 08:54 Breakfast 25% Lunch Supper Temperature 100.4 F H 98.9 F 09/30/16 10:00 Breakfast Lunch Supper Temperature 98.6 F Pt educated on not getting out of bed unassisted this am, but fell after tring to go to the bathroom. With marine electronics technician, pt reassessed. Reasoning seems intact when discussing using nurse call tam, not getting out of bed unassisted, etc. He recalled falling and that his left leg is weak. Speech becomes imprecise intermittently, adversely affecting intelligibility. Case reviewed with sw/ family/neuro. Swallowing intact. Remind pt to speak slowly with exaggerated articulation. REC: RD f/u regarding DM education for pt and family. Rehabilitation candidate for PT/OT/speech. Pt has a green card/medicaid.
--- NOTE | 2016-09-30 14:23 | PN ---
Progress Note (short form) - Note Progress Note: Neurology The patient is a 25 year old male, with a significant past medical history of asthma, who presented to the emergency department for altered mental status. Reportedly, the patient recently returned from [place] and stated he was not feeling well, but could not localize his symptoms. The patient has a history of cocaine use. Spoke to resident and the patient has had elevated liver enzymes, also with DKA, has been having fevers, underwent spinal tap with RBC of 70,000 and 30,000 with elevated WBC and elevated glucose and protein. Sedation weaned off during weekend, extubated and patient now awake, alert, cooperative. Knows he's in the hospital but still with some cognitive difficulty, no longer in ICU and no acute events overnight or today. Will obtain MRI brain. Active Medications Heparin Sodium (Porcine) (Heparin -) 5,000 unit SQ TID [facility] Last Admin: 09/30/16 06:19 Dose: 5,000 unit IV Flush (Triple Lumen Flush) 4 ml IVPUSH PRN PRN PRN Reason: Protocol Piperacillin Sod/Tazobactam Sod (Zosyn 3.375gm Ivpb (Pre-Docked)) 50 mls @ 100 mls/hr IVPB Q8H-IV [facility] PRN Reason: Protocol Last Admin: 09/30/16 09:28 Dose: 100 mls/hr Insulin Aspart (Novolog Vial Sliding Scale -) 1 vial SQ TIDAC [facility] PRN Reason: Protocol Last Admin: 09/30/16 12:00 Dose: Not Given Insulin Detemir (Levemir Vial) 14 units SQ HS [facility] Last Admin: 09/29/16 21:58 Dose: 14 units Metoprolol Tartrate (Lopressor -) 12.5 mg PO BID [facility] Last Admin: 09/30/16 09:29 Dose: 12.5 mg Potassium Chloride (K-Dur -) 40 meq PO BID [facility] Last Admin: 09/30/16 09:29 Dose: 40 meq Thiamine HCl (Vitamin B1 Injection -) 200 mg IVPB DAILY [facility] Last Admin: 09/30/16 09:29 Dose: 200 mg *Physical Exam Last Vital Signs Temp Pulse Resp BP Pulse Ox 98.2 F 97 H 16 133/82 99 09/30/16 14:19 09/30/16 14:19 09/30/16 14:19 09/30/16 14:19 09/29/16 00:00 GENERAL: Difficult to arouse even with painful stimuli HEAD: No signs of trauma EYES: Pupils small but reactive, EOMI, sclera anicteric, conjunctiva clear ENT: Auricles normal inspection, hearing grossly normal, nares patent, oropharynx clear without exudates. Moist mucosa NECK: Normal ROM, supple, no lymphadenopathy, JVD, or masses LUNGS: Respiration is kuz-mal. No wheezes, and no crackles HEART: Regular rate and rhythm, normal S1 and S2, no murmurs, rubs or gallops ABDOMEN: Tender and slightly firm. Normoactive bowel sounds. No guarding, no rebound. No masses EXTREMITIES: Normal range of motion, no edema. No clubbing or cyanosis. No cords, erythema, or tenderness NEUROLOGICAL: Awake, alert, minimally conversive in arabic, follows simple commands, limited attention but not lethargic CBCD WBC 8.5 K/mm3 (4.0-10.0) 09/29/16 06:30 RBC 3.00 M/mm3 (4.00-5.60) L 09/29/16 06:30 Hgb 9.0 GM/dL (11.7-16.9) L 09/29/16 06:30 Hct 26.7 % (35.4-49) L 09/29/16 06:30 MCV 88.8 fl (80-96) 09/29/16 06:30 MCHC 33.6 g/dl (32.0-35.9) 09/29/16 06:30 RDW 12.7 % (11.9-15.9) 09/29/16 06:30 Plt Count 177 K/MM3 (134-434) 09/29/16 06:30 MPV 9.9 fl (7.5-11.1) 09/29/16 06:30 CMP Sodium 142 mmol/L (136-145) 09/30/16 05:35 Potassium 3.5 mmol/L (3.5-5.1) 09/30/16 05:35 Chloride 106 mmol/L (98-107) 09/30/16 05:35 Carbon Dioxide 21 mmol/L (21-32) 09/30/16 05:35 Anion Gap 15 (8-16) 09/30/16 05:35 BUN 19 mg/dL (7-18) H 09/30/16 05:35 Creatinine 2.1 mg/dL (0.7-1.3) H 09/30/16 05:35 Creat Clearance w eGFR 39.00 (>60) 09/30/16 05:35 Calcium 8.3 mg/dL (8.5-10.1) L 09/30/16 05:35 Total Bilirubin 0.6 mg/dL (0.2-1.0) 09/30/16 05:35 AST 47 U/L (15-37) H 09/30/16 05:35 ALT 50 U/L (12-78) 09/30/16 05:35 Alkaline Phosphatase 206 U/L (45-117) H 09/30/16 05:35 Total Protein 6.3 g/dl (6.4-8.2) L 09/30/16 05:35 Albumin 2.2 g/dl (3.4-5.0) L 09/30/16 05:35 Medical Decision Making 25 year old male, with a significant past medical history of asthma, who presented to the emergency department several days ago for altered mental status. Reportedly, the patient recently returned from [place] and stated he was not feeling well, but could not localize his symptoms. The patient has a history of cocaine use. Spoke to resident and the patient has had elevated liver enzymes, also with DKA, has been having fevers, underwent spinal tap with RBC of 70,000 and 30,000 with elevated WBC and elevated glucose and protein. Sedation weaned off during weekend, extubated and patient now awake, alert, cooperative. Knows he's in the hospital but still with some cognitive difficulty. Will check MRI brain given his recent event, would like to evaluate for ischemic events.
--- NOTE | 2016-09-30 14:46 | DS ---
Physical Exam: SUBJECTIVE: Patient seen and examined at bedside ready for discharge OBJECTIVE: Vital Signs Period Temp Pulse Resp BP Sys/Gould Pulse Ox Last 24 Hr 98.1 F-100.6 F 83-99 16-18 118-162/72-97 PHYSICAL EXAM GENERAL: alert awake and orientated to place self and year HEAD: Normal with no signs of trauma. EYES: Pupils equal, round and reactive to light EARS, NOSE, THROAT:Moist mucous membranes. NECK: No JVD. COntact dermatitis from previous central line site likely reaction to tape LUNGS: . CTAB HEART: RRR S1 S2 no murmurs rubs or gallops ABDOMEN: Soft, nontender, not distended +BS UPPER EXTREMITIES: warm, well-perfused. edema previously noted resolved on the right forearm there are 2 area of what appears to be necrosis with surrounding erythema LOWER EXTREMITIES: warm, well-perfused. no edema NEURO: strength 5/5 LABS Laboratory Results - last 24 hr 09/25/16 09/29/16 09/29/16 08:00 17:05 20:54 Lupus Anticoag PTT Mix 58.8 H LA PTT Baseline 63.2 H dRVVT Confirm Interp 1.1 dRVVT Mixing Study 47.5 H Hexagonal Phospholipid 22 H Sodium Potassium Chloride Carbon Dioxide Anion Gap BUN Creatinine Creat Clearance w eGFR POC Glucometer 217 127 Random Glucose Calcium Magnesium Total Bilirubin AST ALT Alkaline Phosphatase Total Protein Albumin Random Vancomycin 09/30/16 09/30/16 09/30/16 05:35 05:47 11:03 Lupus Anticoag PTT Mix LA PTT Baseline dRVVT Confirm Interp dRVVT Mixing Study Hexagonal Phospholipid Sodium 142 Potassium 3.5 Chloride 106 Carbon Dioxide 21 Anion Gap 15 BUN 19 H Creatinine 2.1 H Creat Clearance w eGFR 39.00 POC Glucometer 123 171 Random Glucose 115 H Calcium 8.3 L Magnesium 2.1 Total Bilirubin 0.6 AST 47 H ALT 50 Alkaline Phosphatase 206 H Total Protein 6.3 L Albumin 2.2 L Random Vancomycin 19.468 HOSPITAL COURSE: Date of Admission:09/18/16 Date of Discharge: 09/30/16 26M no known PMH on presentation presented to the hospital after being in [place] for 2 weeks unresponsive after he was found down by his family. Patient found to be in DKA was intubated sedated and sent to ICU. Patient did not know he had diabetes. He was treated with insulin gtt for about 1 week. He had a prolonged hospital course complicated by DKA, DIC, liver failure, thrombocytopenia, acute renal failure, and family also admitted to polysubstance abuse. 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 He was also taking herbal supplements from [place]. Patient seen by endocrinology and insulin regimen titrated and now fingersticks under control. Patient also seen by nephrology neurology hematology ID and GI. His hospital course also complicated by MRSA pneumonia and sinusitis and he was was treated with a long course of IV Abx with vanco and zosyn. Patient is deconditioned however family can not afford SNF. Will send home with [facility] for home PT and medications management. Patient teaching done by dietary and nursing to teach him appropriate foods to eat and how to inject himself. Family went to pharmacy to pickle maker medications and glucometer with supplies and nursing will teach patient and family how to use the device. Addition to problem list: Acute sinusitis MRSA pneumonia hospital acquired pneumonia Minutes to complete discharge: 60 Discharge Summary Reason For Visit: DKA, LACTIC ACIDOSIS,ALTERED MENTAL STATUS Current Active Problems Abnormal liver enzymes (Acute) Acute renal insufficiency (Acute) Altered mental status (Acute) DIC (disseminated intravascular coagulation) (Acute) DKA (diabetic ketoacidosis) (Acute) Diabetes mellitus (Acute) Leukocytosis (Acute) Respiratory failure (Acute) Sepsis (Acute) Shock (Acute) Condition: Stable - Instructions Diet, Activity, Other Instructions: eat a low carbohydrate low sugar diet you must take your insulin as prescribed check you sugars 3 times a day once before each meal get a notebook and keep a journal to log your sugars write down the time and date on each entry and give this to your primary care doctor you must stop using drugs take the Levemir 14units every night before bed time make sure you eat after you give yourself the insulin sliding scale i gave you a prescription for the medications you need to take i also gave you a prescription for glucose testing kit to check your sugars Before Meals-3 times a day 101-150 0 units 151-200 2 units 201-250 4 units 251-300 6 units 301-350 8 units 351-400 10 units More than 400 12 units you should follow up with a flower grader for evaluation of your anemia you may need a colonoscopy you need to see a primary care doctor call [phone] which is the free clinic to schedule an appointment follow up with Dr. Winkler the [facility]em[facility] in 1 week your new primary care doctor needs to send you to an [facility] a foot doctor and an eye doctor regularly for evaluation if you have symptoms again such as nausea vomiting or abdominal pain go to the nearest emergency room it was a pleasure taking care of you Good luck Referrals: Brigitte Winkler MD [Staff Physician] - 1 Week ([facility] ) Disposition: [facility]/HOME HEALTH CARE - Home Medications Comprehensive Discharge Medication List: Ambulatory Orders Insulin (Levemir) [Levemir Vial] 14 units SQ HS #8 vial 09/30/16 Insulin Sliding Scale [Novolog Vial Sliding Scale -] See Protocol SQ TIDAC #5 vial 09/30/16 Lancets 1 each MC TID #1 each 09/30/16 Miscellaneous Medical Supply [Glucometer Device] 1 each .ROUTE ASDIR #1 kit Miscellaneous Medical Supply [Glucometer Test Strips #100] 1 each .ROUTE ASDIR # 1 box 09/30/16 Potassium Chloride [K-Dur -] 20 meq PO DAILY #30 tab 09/30/16 Syringe and Needle,Insulin,1Ml [Insulin Syringe] 1 each MC TID #100 disp.syrin 09/30/16 Walker [Ultra-Light Rollator] 1 each MC DAILY PRN #1 each 09/30/16 This patient is new to me today: No Emergency Visit: Yes ED Registration Date: 09/18/16 Care time: The patient presented to the Emergency Department on the above date and was hospitalized for further evaluation of their emergent condition. Critical Care patient: No - Discharge Referral Referred to [facility] Med [facility] No
[2016-09-30 17:44] LABS: URINE APPEARANCE CLEAR; URINE BILIRUBIN NEGATIVE (NEGATIVE); URINE COLOR STRAW; URINE GLUCOSE (UA) NEGATIVE (NEGATIVE); URINE KETONE NEGATIVE (NEGATIVE); URINE LEUK ESTERASE NEGATIVE (NEGATIVE); URINE NITRITE NEGATIVE (NEGATIVE); URINE UROBILINOGEN NEGATIVE E.U./dl (0.2-1.0)
[2016-09-30 17:57] LABS: URINE CREATININE 45.4 mg/dL
[2016-09-30 18:31] LABS: URINE BLOOD 2+ (NEGATIVE); URINE PROTEIN 1+ (NEGATIVE)
[2016-09-30 18:43] VITALS: BP 116/65; PULSE 89; TEMP 98.6
[2016-09-30 18:44] LABS: URINE RBC 64 /hpf (0-3); URINE WBC 10 /hpf (3-5)
== END 2016-09-30 18:45 | disposition home health service (06) | DRG 710 ==
LOC: JER 13:34 → EDBD 15:45 → JERBED 15:45 → JICU 19:35 → J4S 09-28 23:45
PROVIDERS: ADMIT Internal Medicine; ATTEND Internal Medicine
PROC: 5A1955Z Respiratory Ventilation, Greater than 96 Consecutive Hours (ICD-10-PCS; principal; 2016-09-18)
PROC: 0BH17EZ Insertion of Endotracheal Airway into Trachea, Via Natural or Artificial Opening (ICD-10-PCS; 2016-09-18)
PROC: 009U3ZX Drainage of Spinal Canal, Percutaneous Approach, Diagnostic (ICD-10-PCS; 2016-09-18)
PROC: 0DH67UZ Insertion of Feeding Device into Stomach, Via Natural or Artificial Opening (ICD-10-PCS; 2016-09-20)
PROC: 3E0G76Z Introduction of Nutritional Substance into Upper GI, Via Natural or Artificial Opening (ICD-10-PCS; 2016-09-20)
PROC: 02HV33Z Insertion of Infusion Device into Superior Vena Cava, Percutaneous Approach (ICD-10-PCS; 2016-09-21)
PROC: B548ZZA Ultrasonography of Superior Vena Cava, Guidance (ICD-10-PCS; 2016-09-21)
DX: A41.9 Sepsis, unspecified organism (principal); J96.00 Acute respiratory failure, unspecified whether with hypoxia or hypercapnia; D65 Disseminated intravascular coagulation [defibrination syndrome]; G92 Toxic encephalopathy; R56.9 Unspecified convulsions; R65.21 Severe sepsis with septic shock; J15.212 Pneumonia due to Methicillin resistant Staphylococcus aureus; N17.9 Acute kidney failure, unspecified; E87.0 Hyperosmolality and hypernatremia; E10.10 Type 1 diabetes mellitus with ketoacidosis without coma; K85.90 Acute pancreatitis without necrosis or infection, unspecified; E87.2 Acidosis; K76.0 Fatty (change of) liver, not elsewhere classified; E87.1 Hypo-osmolality and hyponatremia; E87.70 Fluid overload, unspecified; I82.613 Acute embolism and thrombosis of superficial veins of upper extremity, bilateral; J45.909 Unspecified asthma, uncomplicated; F14.10 Cocaine abuse, uncomplicated; E86.9 Volume depletion, unspecified; R31.0 Gross hematuria; E86.0 Dehydration; R68.0 Hypothermia, not associated with low environmental temperature; E87.6 Hypokalemia; F10.230 Alcohol dependence with withdrawal, uncomplicated; D63.8 Anemia in other chronic diseases classified elsewhere; J01.90 Acute sinusitis, unspecified
CPT/HCPCS: 36415; 36600; 70450-TC; 71010-TC; 74000-TC; 74176-TC; 76705-TC; 76775-TC; 76856-TC; 80048; 80051; 80053; 80076; 80307; 81003; 81015; 81240; 81241; 82150; 82375; 82390; 82436; 82525; 82542; 82550; 82553; 82570; 82607; 82693; 82728; 82746; 82803; 82945; 82947; 82977; 83010; 83036; 83050; 83516; 83520; 83540; 83550; 83605; 83615; 83690; 83735; 83930; 83935; 84100; 84133; 84155; 84156; 84157; 84165; 84295; 84300; 84443; 84484; 85025; 85027; 85044; 85302; 85303; 85305; 85306; 85362; 85379; 85384; 85397; 85610; 85613; 85730; 85732; 86022; 86038; 86146; 86160; 86225; 86256; 86593; 86694; 86704; 86706; 86708; 86735; 86765; 86787; 86788; 86789; 86850; 86880; 86900; 86901; 87040; 87045; 87046; 87070; 87086; 87102; 87186; 87205; 87210; 87324; 87340; 87389; 87449; 89050; 93005; 93010; 93306-TC; 93970-TC; 94002; 94640; 97116-GP; 99285-25; G0008; G0480; J1644; Q2037

== ENCOUNTER 2021-12-27 17:54 | Emergency (ER) | payer OTHER ==
[2021-12-27 18:25] VITALS: BP 105/73; PULSE 110; RESP 18; TEMP 98.4; BMI 24.6
[2021-12-27] MEDS ORDERED: ONDANSETRON 4 MG/2 ML VIAL IVPUSH ONE (19:53)
[2021-12-27] MEDS ORDERED: SODIUM CHLORIDE 1,000 ML IV STA (19:53)
[2021-12-27] MEDS ORDERED: ACETAMINOPHEN 1000 MG/100 ML BAG IVPB ONE (19:53)
[2021-12-27 20:58] LABS: VENOUS BASE EXCESS -3.1 mmol/L (-2-2); VENOUS O2 SATURATION 76.6 % (70-80); VENOUS PCO2 37.3 mmHg (38-52); VENOUS PH 7.379 (7.310-7.410)
[2021-12-27 20:59] LABS: BASO % 1.3 % (0-2.0); EOS % 10.3 % (0-4.5); HEMATOCRIT 37.8 % (35.4-49); HEMOGLOBIN 13.1 GM/dL (11.7-16.9); LYMPH % 30.1 % (8-40); MCH 31.9 pg (25.7-33.7); MCHC 34.6 g/dl (32.0-35.9); MEAN CELL VOLUME 92.1 fl (80-96); MONO % 5.5 % (3.8-10.2); NEUT % 52.8 % (42.8-82.8); PLATELET COUNT 344 10^3/uL (134-434); RDW 13.1 % (11.9-15.9); WHITE BLOOD COUNT 8.4 K/mm3 (4.0-10.0)
[2021-12-27] MEDS ORDERED: ACETAMINOPHEN INJECTION 100 ML IVPB ONE (21:01)
[2021-12-27] MEDS ORDERED: ONDANSETRON 4 MG/2 ML VIAL ONE (21:02)
[2021-12-27 21:22] LABS: ALBUMIN 4.1 g/dl (3.4-5.0); CALCIUM 9.4 mg/dL (8.5-10.1)
[2021-12-27 21:23] LABS: BLOOD UREA NITROGEN 15.1 mg/dL (7-18)
[2021-12-27 21:25] LABS: CREATININE 0.8 mg/dL (0.55-1.3)
[2021-12-27 21:27] LABS: BILIRUBIN,TOTAL 0.5 mg/dL (0.2-1)
== END 2021-12-27 22:38 | disposition home or self-care (01) ==
LOC: JER 17:54
PROC: 3E033NZ Introduction of Analgesics, Hypnotics, Sedatives into Peripheral Vein, Percutaneous Approach (ICD-10-PCS; principal; 2021-12-27)
PROC: 3E033GC Introduction of Other Therapeutic Substance into Peripheral Vein, Percutaneous Approach (ICD-10-PCS; 2021-12-27)
PROC: 3E0337Z Introduction of Electrolytic and Water Balance Substance into Peripheral Vein, Percutaneous Approach (ICD-10-PCS; 2021-12-27)
DX: R19.7 Diarrhea, unspecified (principal)
CPT/HCPCS: 36415; 80053; 82010; 82803; 83690; 85025; 99284-25

== ENCOUNTER 2022-08-20 14:17 | Emergency (ER) | payer OTHER ==
[2022-08-20 14:23] VITALS: BP 137/92; PULSE 124; RESP 18; TEMP 97.3; BMI 28.1
[2022-08-20] MEDS ORDERED: ACETAMINOPHEN 1000 MG/100 ML BAG IVPB ONE (14:39)
[2022-08-20] MEDS ORDERED: SODIUM CHLORIDE 0.9% 500 ML INFUS.BAG IV ONE ×2 (14:39→16:46)
[2022-08-20] MEDS ORDERED: ACETAMINOPHEN INJECTION 100 ML IVPB ONE (14:55)
[2022-08-20 16:00] LABS: BASO % 0.9 % (0-2.0); EOS % 7.3 % (0-4.5); HEMATOCRIT 37.2 % (35.4-49); HEMOGLOBIN 12.8 GM/dL (11.7-16.9); LYMPH % 12.6 % (8-40); MCH 30.2 pg (25.7-33.7); MCHC 34.3 g/dl (32.0-35.9); MEAN PLT VOLUME 9.4 fl (7.5-11.1); MONO % 7.9 % (3.8-10.2); NEUT % 71.3 % (42.8-82.8); PLATELET COUNT 339 10^3/uL (134-434); RBC 4.23 M/mm3 (4.00-5.60); RDW 12.7 % (11.9-15.9); WHITE BLOOD COUNT 10.8 K/mm3 (4.0-10.0)
[2022-08-20 16:20] LABS: CHLORIDE 93 mmol/L (98-107); SODIUM 130 mmol/L (136-145)
[2022-08-20 16:24] LABS: ALBUMIN 3.4 g/dl (3.4-5.0); ANION GAP 9 MMOL/L (8-16); BLOOD UREA NITROGEN 7.7 mg/dL (7-18); CALCIUM 9.5 mg/dL (8.5-10.1); CO2 28 mmol/L (21-32)
[2022-08-20 16:27] LABS: CREATININE 0.9 mg/dL (0.55-1.3); SGPT/ALT 62 U/L (13-61)
[2022-08-20 16:28] LABS: SGOT/AST 38 U/L (15-37)
[2022-08-20 16:29] LABS: BILIRUBIN,TOTAL 0.7 mg/dL (0.2-1); TOT PROT 8.3 g/dl (6.4-8.2)
[2022-08-20 16:30] LABS: ALK PHOS 199 U/L (45-117)
[2022-08-20 16:35] LABS: GLUCOSE,RANDOM 452 mg/dL (74-106)
[2022-08-20 16:41] LABS: THROAT:GRP A STREP NOT DETECTED (NOTDETECTED)
== END 2022-08-20 18:26 | disposition home or self-care (01) ==
LOC: JERFT 14:17
PROC: 3E033GC Introduction of Other Therapeutic Substance into Peripheral Vein, Percutaneous Approach (ICD-10-PCS; principal; 2022-08-20)
DX: I88.9 Nonspecific lymphadenitis, unspecified (principal)
CPT/HCPCS: 0241U-QW; 36415; 70491-TC; 80053; 82962; 85025; 87651; 99285-25; Q9967